=== PATIENT | male | born 1960 | race Caucasian/White ===

== ENCOUNTER 2020-09-21 15:31 | Outpatient (REF) | payer OTHER, SELFPAY ==
[2020-09-21 16:00] LABS: MANUAL DIFF FLAG NO
[2020-09-21 16:14] LABS: Glucose Urine UA 100 MG/DL (NEG); Leukocyte Esterase Urine NEG (NEG); Nitrite Urine NEG (NEG); Specific Gravity - Urine >= 1.030 (1.005-1.025); Urine Blood 1+ (NEG); Urine Ketones NEG (NEG); Urine Protein 2+ MG/DL (NEG-TRACE)
[2020-09-21 16:14] LABS: Basophils Percent Auto 0.3 % (0-2); Eosinophils Percent Auto 0.1 % (0-4); Hemoglobin 16.9 g/dl (14.0-18.0); Imm Gran Abs Auto 0.15 X10*3/uL (0.00-0.03); Imm Gran Pct Auto 1.5 % (0.0-0.4); Lymphocytes Absolute Auto 0.8 X10*3/uL (1.2-4.9); Lymphocytes Percent Auto 8.2 % (20-40); Mean Corpuscular HGB Conc 31.9 g/dl (31.0-36.0); Mean Corpuscular Hemoglobin 28.8 pg (27.0-33.0); Mean Corpuscular Volume 90.4 fL (80-98); Mean Platelet Volume 10.8 fL (9.4-12.4); Monocytes Absolute Auto 0.6 X10*3/uL (0.1-1.2); Monocytes Percent Auto 6.2 % (2-11); Neutrophils Absolute Auto 8.5 X10*3/uL (2.0-8.3); Neutrophils Percent Auto 83.7 % (45-73); Platelet Count 159 X10*3/uL (160-400); Red Blood Count 5.86 X10*6/uL (4.60-5.80); Red Cell Distribution Width 14.5 % (11.0-16.0); Retic HGB Equivalent 31.7 pg (30.0-35.0); Reticulocyte Percent 1.4 % (0.5-1.8); White Blood Count 10.2 X10*3/uL (4.8-10.8)
[2020-09-21 16:17] LABS: Appearance Urine CLEAR; Color Urine YELLOW
[2020-09-21 16:30] LABS: WBC Urine 0 /HPF (0-4)
[2020-09-21 17:02] LABS: Alanine Aminotransferase 15 U/L (0-40); Albumin Level 3.7 g/dL (3.5-5.0); Alkaline Phosphatase 91 U/L (39-117); Anion Gap 16 (12-20); Aspartate Amino Transferase 17 U/L (5-37); Bilirubin Total 0.4 mg/dL (0.0-1.0); Blood Urea Nitrogen 47 mg/dL (9-16); Calcium 9.4 mg/dL (8.4-10.2); Carbon Dioxide 21 mmol/L (22-29); Chloride 109 mmol/L (96-108); Cholesterol 168 mg/dL; Estimated Glomerular Filt Rate 39; Glucose Random 154 mg/dL (60-115); HDL Cholesterol 46 mg/dL; Iron 56 mcg/dL (45-160); LDL Cholesterol Calculated 107 mg/dl; Percent Iron Saturation 22 % (15-50); Potassium 5.4 mmol/l (3.3-5.1); Sodium 141 mmol/L (135-145); Total Iron Binding Capacity 255 mcg/dL (228-428); Total Protein 6.8 g/dL (6.5-8.0); Triglycerides 78 mg/dL; Unsaturated Iron Binding 199 ug/dL
[2020-09-21 17:11] LABS: Ferritin 545 ng/mL (20-250); Free T4 (Free Thyroxine) 0.94 ng/dL (0.71-1.85); Prostate Specific Antigen Scr 2.05 ng/mL (<0.05-4.0); Thyroid Stimulating Hormone 2.88 uIU/mL (0.32-4.0); Vitamin D 25-OH Total 22.6 ng/mL (>30)
[2020-09-21 17:22] LABS: Folate 6.5 ng/mL (> or = 4.0); Vitamin B12 508 pg/mL (200-900)
== END 2020-09-21 15:32 | disposition home or self-care (01) ==
LOC: HO.LAB 15:31
PROVIDERS: PCP Internal Medicine; Visit Provider Internal Medicine
DX: E11.65 Type 2 diabetes mellitus with hyperglycemia (principal); I10 Essential (primary) hypertension; I48.0 Paroxysmal atrial fibrillation; E78.00 Pure hypercholesterolemia, unspecified; Z12.5 Encounter for screening for malignant neoplasm of prostate; Z94.0 Kidney transplant status
CPT/HCPCS: 36415; 80053; 80061; 81001; 82043; 82306; 82607; 82728; 82746; 83540; 84153; 84439; 84443; 85025; 85045

== ENCOUNTER 2020-09-24 14:15 | Outpatient (REF) | payer OTHER, SELFPAY ==
[2020-09-24 14:43] LABS: PLT CLUMP 1; Red Cell Distribution Width 14.6 % (11.0-16.0)
[2020-09-24 14:45] LABS: Hematocrit 46.6 % (42-52); Hemoglobin 14.6 g/dl (14.0-18.0); Mean Corpuscular HGB Conc 31.3 g/dl (31.0-36.0); Mean Corpuscular Hemoglobin 28.7 pg (27.0-33.0); Mean Corpuscular Volume 91.6 fL (80-98); Mean Platelet Volume 10.8 fL (9.4-12.4); Platelet Count 125 X10*3/uL (160-400); Red Blood Count 5.09 X10*6/uL (4.60-5.80); White Blood Count 9.3 X10*3/uL (4.8-10.8)
[2020-09-24 14:52] LABS: Glucose Urine UA NEG (NEG); Leukocyte Esterase Urine NEG (NEG); Nitrite Urine NEG (NEG); Specific Gravity - Urine 1.015 (1.005-1.025); Urine Blood NEG (NEG); Urine Ketones NEG (NEG); Urine Protein 1+ MG/DL (NEG-TRACE)
[2020-09-24 14:54] LABS: Appearance Urine CLEAR; Color Urine STRAW
[2020-09-24 15:11] LABS: RBC Urine 0 /HPF (0); WBC Urine 0-2 /HPF (0-4)
[2020-09-24 15:12] LABS: Alanine Aminotransferase 14 U/L (0-40); Albumin Level 3.6 g/dL (3.5-5.0); Alkaline Phosphatase 86 U/L (39-117); Anion Gap 11 (12-20); Aspartate Amino Transferase 14 U/L (5-37); Bilirubin Direct 0.2 mg/dL (0.0-0.5); Bilirubin Total 0.5 mg/dL (0.0-1.0); Blood Urea Nitrogen 51 mg/dL (9-16); C Reactive Protein 0.37 mg/dL (< or = 0.50); Calcium 9.3 mg/dL (8.4-10.2); Carbon Dioxide 30 mmol/L (22-29); Chloride 107 mmol/L (96-108); Estimated Glomerular Filt Rate 41; Glucose Random 133 mg/dL (60-115); Potassium 4.8 mmol/l (3.3-5.1); Sodium 143 mmol/L (135-145); Total Protein 6.1 g/dL (6.5-8.0)
[2020-09-24 15:33] LABS: Creatinine Urine 24.68 mg/dL
== END 2020-09-24 14:16 | disposition home or self-care (01) ==
LOC: HO.LAB 14:15
PROVIDERS: Absent Provider Internal Medicine; PCP Internal Medicine; Visit Provider Internal Medicine
DX: E11.65 Type 2 diabetes mellitus with hyperglycemia (principal); M17.12 Unilateral primary osteoarthritis, left knee; Z94.0 Kidney transplant status
CPT/HCPCS: 36415; 80048; 80076; 81001; 85027; 86140

== ENCOUNTER → 2020-10-29 13:14 | Outpatient (BNVA) | payer OTHER, SELFPAY | PROVIDERS: PCP Internal Medicine; Visit Provider Internal Medicine | DX: I48.92 Unspecified atrial flutter (principal); I48.0 Paroxysmal atrial fibrillation; I10 Essential (primary) hypertension; F14.90 Cocaine use, unspecified, uncomplicated; Z98.890 Other specified postprocedural states | CPT/HCPCS: 93005; 99212 ==

== ENCOUNTER 2020-11-17 08:29 | Outpatient (REF) | payer OTHER, SELFPAY ==
[2020-11-17 09:35] LABS: Glucose Urine UA NEG (NEG); Leukocyte Esterase Urine NEG (NEG); Nitrite Urine NEG (NEG); Specific Gravity - Urine 1.025 (1.005-1.025); Urine Blood TRACE (NEG); Urine Ketones NEG (NEG); Urine Protein 2+ MG/DL (NEG-TRACE)
[2020-11-17 09:37] LABS: Appearance Urine CLEAR; Color Urine YELLOW
[2020-11-17 09:55] LABS: RBC Urine 0-2 /HPF (0); WBC Urine 0-2 /HPF (0-4)
[2020-11-17 09:58] LABS: Albumin Level 3.1 g/dL (3.5-5.0); Anion Gap 10 (12-20); Blood Urea Nitrogen 43 mg/dL (9-16); Calcium 9.1 mg/dL (8.4-10.2); Carbon Dioxide 28 mmol/L (22-29); Chloride 111 mmol/L (96-108); Estimated Glomerular Filt Rate 47; Magnesium 1.4 mg/dL (1.6-2.6); Potassium 4.8 mmol/L (3.3-5.1); Sodium 144 mmol/L (135-145)
[2020-11-17 10:13] LABS: Vitamin D 25-OH Total 15.1 ng/mL (>30)
[2020-11-17 10:17] LABS: Renal w Reflex Lab Use Only Order verified
[2020-11-17 10:19] LABS: Uric Acid 10.5 mg/dL (3.4-7.0)
[2020-11-17 10:26] LABS: Creatinine Urine 70.35 mg/dL
[2020-11-17 10:41] LABS: Protein/Creatinine Ratio, Ur 3.67 (<0.2); Total Protein Urine Random 258 mg/dL (<12)
[2020-11-18 15:46] LABS: Calcium (PTHI) 9.3 mg/dL (8.6-10.3); PTHI 273 pg/mL (14-64)
== END 2020-11-17 08:30 | disposition home or self-care (01) ==
LOC: HO.LAB 08:29
PROVIDERS: Absent Provider Internal Medicine Nephrology; PCP Internal Medicine; Visit Provider Internal Medicine
DX: N18.30 Chronic kidney disease, stage 3 unspecified (principal); N25.81 Secondary hyperparathyroidism of renal origin; Z94.0 Kidney transplant status
CPT/HCPCS: 36415; 80051; 81001; 82040; 82043; 82306; 82310; 82565; 83735; 83970; 84100; 84156; 84520; 84550

== ENCOUNTER 2020-12-08 16:06 | Inpatient (IN) | payer OTHER, SELFPAY ==
[2020-12-08] VITALS (8 sets, daily range): BP systolic 112–162; BP diastolic 65–114; PULSE 78–140; RESP 12–28; TEMP 36.7–36.8; O2SAT 92–98; BMI 29.5
--- NOTE | ~2020-12-08 | XR_ITS ---
EXAMINATION: XR CHEST CLINICAL INFORMATION: Shortness of breath COMPARISON: Prior chest radiographs, most recent 03/11/2020 TECHNIQUE: Portable AP view of the chest was obtained. FINDINGS: Cardiomediastinal silhouette is stable in size and morphology. There is a left-sided pacemaker with associated leads and wires. The leads and wires are contiguous. There are hazy opacities in the perihilar right mid to lower lung zone. Questionable small amount of perihilar opacity in the left mid to lower lung zone as well. No pleural effusion or pneumothorax is seen. There are metallic clips in the region of the left axilla. The structures of the chest wall are otherwise unremarkable. XR/XR chest 1V IMPRESSION: Right and possible left perihilar opacities may represent consolidation/pneumonia in the appropriate clinical setting. Follow-up to radiographic resolution is recommended.
--- NOTE | 2020-12-08 17:30 | ECG_ITS ---
Test Reason : SOB Blood Pressure : / mmHG Vent. Rate : 116 BPM Atrial Rate : 117 BPM P-R Int : 000 ms QRS Dur : 122 ms QT Int : 298 ms P-R-T Axes : 000 -69 136 degrees QTc Int : 414 ms Atrial fibrillation with rapid ventricular response Right bundle branch block Left anterior fascicular block Bifascicular block Abnormal ECG When compared with ECG of 18-JAN-2020 20:35, Atrial fibrillation has replaced Sinus rhythm Referred By: Generic ED Physician Electronically Signed By:South Jones
--- NOTE | 2020-12-08 20:25 | PC.NURSE ---
IV established, labs and urine obtained and sent. Awaiting primary MD nieves.
[2020-12-08 20:32] LABS: MANUAL DIFF FLAG NO
[2020-12-08 20:35] LABS: Glucose Urine UA NEG (NEG); Leukocyte Esterase Urine NEG (NEG); Nitrite Urine NEG (NEG); PH 5.5 (5.0-8.0); Specific Gravity - Urine >= 1.030 (1.005-1.025); Urine Blood TRACE (NEG); Urine Ketones NEG (NEG); Urine Protein 2+ MG/DL (NEG-TRACE)
[2020-12-08 20:36] LABS: Appearance Urine CLEAR; Color Urine YELLOW
[2020-12-08 20:40] LABS: Basophils Percent Auto 0.5 % (0-2); Eosinophils Percent Auto 0.3 % (0-4); Hematocrit 44.7 % (42-52); Hemoglobin 13.7 g/dl (14.0-18.0); Imm Gran Abs Auto 0.12 X10*3/uL (0.00-0.03); Imm Gran Pct Auto 1.9 % (0.0-0.4); Lymphocytes Percent Auto 15.8 % (20-40); Mean Corpuscular HGB Conc 30.6 g/dl (31.0-36.0); Mean Corpuscular Hemoglobin 29.1 pg (27.0-33.0); Mean Corpuscular Volume 95.1 fL (80-98); Mean Platelet Volume 11.2 fL (9.4-12.4); Monocytes Absolute Auto 0.8 X10*3/uL (0.1-1.2); Monocytes Percent Auto 12.7 % (2-11); Neutrophils Absolute Auto 4.4 X10*3/uL (2.0-8.3); Neutrophils Percent Auto 68.8 % (45-73); Platelet Count 164 X10*3/uL (160-400); White Blood Count 6.5 X10*3/uL (4.8-10.8)
[2020-12-08 20:42] LABS: Bacteria Urine 1+ /LPF; RBC Urine 0-2 /HPF (0); WBC Urine 0 /HPF (0-4)
[2020-12-08 20:48] LABS: Lactic Acid 1.1 mmol/L (0.5-2.0)
[2020-12-08 20:51] LABS: Anion Gap 16 (12-20); Blood Urea Nitrogen 50 mg/dL (9-16); Calcium 9.1 mg/dL (8.4-10.2); Carbon Dioxide 23 mmol/L (22-29); Chloride 107 mmol/L (96-108); Estimated Glomerular Filt Rate 27; Glucose Random 107 mg/dL (60-115); Potassium 4.4 mmol/L (3.3-5.1); Sodium 142 mmol/L (135-145)
[2020-12-08 21:03] LABS: Troponin-I High Sensitivity 83.7 ng/L (<3.5-35.0)
[2020-12-08 21:07] LABS: B Type Natriuretic Peptide 766 pg/mL (<100)
--- NOTE | 2020-12-08 21:18 | ED.SOB ---
HPI - SOB/Dyspnea General Chief Complaint: Dyspnea Stated Complaint: chest pain Time Seen by Provider: 12/08/20 21:18 Source: patient Mode of arrival: ambulatory Limitations: no limitations History of Present Illness HPI Narrative: Patient with history of atrial fibrillation flutter status post pacemaker for second-degree block with history of CHF comes here for increased shortness of breath for last few weeks with swelling of the legs since Liudmila time patient feel that she can take a deep breath was diagnosed with pneumonia about 2 weeks ago at [facility] finished his antibiotics , saturating 92% at room air patient denied any chest pain no fever no chills, occasional dry cough MD elicited complaint: shortness of breath Pertinent past history: congestive heart failure Onset (ago): week(s) Timing: constant Severity: moderate Exacerbating factors: lying flat and exertion Relieving factors: oxygen Known history of: congestive heart failure Treatment prior to arrival: none Related Data Home Medications Medication Instructions Recorded Confirmed aripiprazole 30 mg tablet 30 mg PO DAILY 08/13/20 12/08/20 omeprazole 20 mg capsule,delayed 20 mg PO DAILY@0630 08/13/20 12/08/20 release tacrolimus 1 mg capsule, 2 mg PO Q12H 08/13/20 12/08/20 immediate-release albuterol sulfate 90 mcg/actuation 2 puff INHALATION Q6H PRN 09/29/20 12/08/20 aerosol inhaler prednisone 10 mg tablet 10 mg PO DIRECTED 10/29/20 12/08/20 divalproex [Depakote ER] 1,000 mg PO BEDTIME 12/08/20 12/08/20 divalproex [Depakote ER] 500 mg PO DAILY 12/08/20 12/08/20 sod phos di, mono-K phos mono 1 tab PO DAILY 12/08/20 12/08/20 [Phospha 250 Neutral] Previous Rx's Medication Instructions Recorded diltiazem HCl 120 mg 120 mg PO DAILY #90 tab 06/16/20 tablet,extended release 24 hr acetaminophen 650 mg 650 mg PO Q12H PRN 15 Days #30 tab 09/29/20 tablet,extended release rivaroxaban 15 mg tablet 15 mg PO DAILY #90 tab 10/29/20 furosemide 20 mg tablet 20 mg PO DAILY #28 tab 11/02/20 Allergies Allergy/AdvReac Type Severity Reaction Status Date / Time diltiazem [From Cardizem] Allergy Unknown Dizziness Verified 11/05/20 12:06 indomethacin [Indocin] Allergy Unknown Unknown Verified 11/05/20 12:06 Review of Systems Review of Systems: Constitutional : No Weight loss, No Fever, No Chills ENT/Mouth : No sore throat, No Rhinorrhea Eyes: No Eye Pain, No Swelling Cardiovascular : No Chest Pain, no palpitations Respiratory : No Cough, No Sputum, ++ shortness of breath Gastrointestinal : no Nausea, No Vomiting, No Diarrhea, No abdominal Pain, no black stools Genitourinary : No Dysuria, No Urinary Frequency Musculoskeletal : No joint pain, No Myalgias, No Joint Swelling, leg edema++ Skin : No Skin Lesions, No rash Neuro : No Weakness, No Numbness, No Dizziness, No Headache Psych : No Anxiety/Panic, No Depression Heme/Lymph: No Bruising, No Lymphadenopathy Endocrine : No Polyuria, No Polydipsia All other systems reviewed and are negative [facility] Past Medical History Medical History Asthma Bipolar disorder Cellulitis of left foot Cellulitis of left lower extremity Cocaine use DVT (deep venous thrombosis) Essential hypertension Gout Hip osteoarthritis History of seizures Obesity Pacemaker PAF (paroxysmal atrial fibrillation) Polysubstance abuse Renal transplant recipient Second degree heart block Subdural hematoma Thrombocytopenia Tobacco abuse Unilateral primary osteoarthritis, left knee Urinary bladder cancer Surgical History Abscess of arm, left H/O cardiac radiofrequency ablation History of cardiac catheterization History of removal of cyst History of removal of cyst Kidney replaced by transplant Family History Family History Father Prostate cancer Mother No problems noted. Brother Cancer Social History Social History Alcohol intake: never Smoking Status: Current every day smoker Cigarettes Per Day: 1 Advance Directives: No Physical Exam Vital Signs: Vital Signs: Last Vital Signs Temp 98.0 F 12/08/20 20:00 Pulse 105 H 12/09/20 02:51 Resp 24 H 12/09/20 02:51 BP 140/93 H 12/09/20 00:40 Pulse Ox 98 12/09/20 02:51 Body Mass Index 29.5 Const: General: well developed and in distress mild Orientation/consciousness: patient oriented x3 HENMT: Head: Yes normocephalic and Yes atraumatic Eyes: General: appearance normal, both eyes and all related structures Neck: Neck: Yes normal visual inspection, Yes full ROM and Yes no JVD Chest: Chest palpation & inspection: normal inspection of the chest Resp: Effort & Inspection: normal respiratory effort Auscultation: crackles bilateral, rales bilateral, rhonchi and wheezes Cardio: Jugular venous distension: no JVD Palpation: normal PMI Rate: tachycardic Rhythm: abnormal rhythm irregularly irregular Heart sounds: S1 normal heart sound present and S2 normal heart sound present Peripheral pulses: Peripheral pulses 2+ throughout GI: Inspection: Yes normal to inspection Palpation (GI): Soft to palpation and nontender Auscultation: normal bowel sounds : General: Yes no CVA tenderness Back/Spine/Pelvis: Back: no CVA tenderness Thoracic/Lumbar Spine: thoracic and lumbar spine normal to inspection Skin: General skin exam: no rashes or lesions noted Neuro: General: patient oriented x3 and no focal motor deficits Extrem: General: Yes no calf tenderness and Yes pedal edema (3+) MDM - SOB/Dyspnea MDM Narrative Medical decision making narrative: Patient has significant coronary artery disease with CHF status post renal transplant with chronic renal failure comes with increased shortness of breath with elevated BUN creatinine and BNP chest x-ray showed congestion. Also patient is atrial fibrillation with fast ventricular rate which responded to IV Cardizem. Will admit patient for IV diuresis patient is saturating 98% at this time 2 L of oxygen via nasal cannula. Patient has elevated troponin without any significant delta change or EKG changes likely from atrial fibrillation and renal failure Differential Diagnosis Differential diagnosis: Likely congestive heart failure and pneumonia Medical Records Attestation: I reviewed the patient's medical records. Lab Data Attestation: I reviewed the patient's lab results. Result diagrams: 12/08/20 20:23 12/08/20 20:23 Labs: Lab Results 12/08/20 12/08/20 12/08/20 Range/Units 20:23 20:23 20:23 WBC 6.5 (4.8-10.8) X10*3/uL RBC 4.70 (4.60-5.80) X10*6/uL Hgb 13.7 L (14.0-18.0) g/dl Hct 44.7 (42-52) % MCV 95.1 (80-98) fL MCH 29.1 (27.0-33.0) pg MCHC 30.6 L (31.0-36.0) g/dl RDW 16.0 (11.0-16.0) % Plt Count 164 D (160-400) X10*3/uL MPV 11.2 (9.4-12.4) fL Immature Gran % (Auto) 1.9 H (0.0-0.4) % Neut % (Auto) 68.8 (45-73) % Lymph % (Auto) 15.8 L (20-40) % [place] % (Auto) 12.7 H (2-11) % Eos % (Auto) 0.3 (0-4) % Baso % (Auto) 0.5 (0-2) % Lymph # (Auto) 1.0 L (1.2-4.9) X10*3/uL [place] # (Auto) 0.8 (0.1-1.2) X10*3/uL Eos # (Auto) 0.0 (0.0-0.4) X10*3/uL Baso # (Auto) 0.0 (0.0-0.2) X10*3/uL Abs Immat Gran (auto) 0.12 H (0.00-0.03) X10*3/uL Absolute Neuts (auto) 4.4 (2.0-8.3) X10*3/uL Absolute Nucleated RBC 0.000 (0.0-0.012) X10*3/uL Nucleated RBC % (auto) 0.0 (0.0-0.2) /100WBC PT (10.8-13.0) SEC INR (0.9-1.1) APTT (24.1-38.0) SEC Hold Blue Top Sodium 142 (135-145) mmol/L Potassium 4.4 (3.3-5.1) mmol/L Chloride 107 (96-108) mmol/L Carbon Dioxide 23 (22-29) mmol/L Anion Gap 16 (12-20) BUN 50 H (9-16) mg/dL Creatinine 2.43 H (0.5-1.4) mg/dL Estim Creat Clear Calc 35.0 Estimated GFR 27 Random Glucose 107 (60-115) mg/dL Lactic Acid (0.5-2.0) mmol/L Calcium 9.1 (8.4-10.2) mg/dL Troponin I High Sens 83.7 H (<3.5-35.0) ng/L B-Natriuretic Peptide (<100) pg/mL Urine Color Urine Appearance Urine pH (5.0-8.0) Ur Specific [place] (1.005-1.025) Urine Protein (NEG-TRACE) MG/DL Urine Glucose (UA) (NEG) MG/DL Urine Ketones (NEG) MG/DL Urine Blood (NEG) Urine Nitrite (NEG) Ur Leukocyte Esterase (NEG) Urine RBC (0) /HPF Urine WBC (0-4) /HPF Ur Squamous Epith Cells /LPF Urine Bacteria /LPF 12/08/20 12/08/20 12/08/20 Range/Units 20:23 20:23 20:23 WBC (4.8-10.8) X10*3/uL RBC (4.60-5.80) X10*6/uL Hgb (14.0-18.0) g/dl Hct (42-52) % MCV (80-98) fL MCH (27.0-33.0) pg MCHC (31.0-36.0) g/dl RDW (11.0-16.0) % Plt Count (160-400) X10*3/uL MPV (9.4-12.4) fL Immature Gran % (Auto) (0.0-0.4) % Neut % (Auto) (45-73) % Lymph % (Auto) (20-40) % [place] % (Auto) (2-11) % Eos % (Auto) (0-4) % Baso % (Auto) (0-2) % Lymph # (Auto) (1.2-4.9) X10*3/uL [place] # (Auto) (0.1-1.2) X10*3/uL Eos # (Auto) (0.0-0.4) X10*3/uL Baso # (Auto) (0.0-0.2) X10*3/uL Abs Immat Gran (auto) (0.00-0.03) X10*3/uL Absolute Neuts (auto) (2.0-8.3) X10*3/uL Absolute Nucleated RBC (0.0-0.012) X10*3/uL Nucleated RBC % (auto) (0.0-0.2) /100WBC PT 13.1 H (10.8-13.0) SEC INR 1.1 (0.9-1.1) APTT 31.6 (24.1-38.0) SEC Hold Blue Top SEE NOTE Sodium (135-145) mmol/L Potassium (3.3-5.1) mmol/L Chloride (96-108) mmol/L Carbon Dioxide (22-29) mmol/L Anion Gap (12-20) BUN (9-16) mg/dL Creatinine (0.5-1.4) mg/dL Estim Creat Clear Calc Estimated GFR Random Glucose (60-115) mg/dL Lactic Acid 1.1 (0.5-2.0) mmol/L Calcium (8.4-10.2) mg/dL Troponin I High Sens (<3.5-35.0) ng/L B-Natriuretic Peptide 766 H (<100) pg/mL Urine Color Urine Appearance Urine pH (5.0-8.0) Ur Specific [place] (1.005-1.025) Urine Protein (NEG-TRACE) MG/DL Urine Glucose (UA) (NEG) MG/DL Urine Ketones (NEG) MG/DL Urine Blood (NEG) Urine Nitrite (NEG) Ur Leukocyte Esterase (NEG) Urine RBC (0) /HPF Urine WBC (0-4) /HPF Ur Squamous Epith Cells /LPF Urine Bacteria /LPF 12/08/20 12/09/20 Range/Units 20:23 00:33 WBC (4.8-10.8) X10*3/uL RBC (4.60-5.80) X10*6/uL Hgb (14.0-18.0) g/dl Hct (42-52) % MCV (80-98) fL MCH (27.0-33.0) pg MCHC (31.0-36.0) g/dl RDW (11.0-16.0) % Plt Count (160-400) X10*3/uL MPV (9.4-12.4) fL Immature Gran % (Auto) (0.0-0.4) % Neut % (Auto) (45-73) % Lymph % (Auto) (20-40) % [place] % (Auto) (2-11) % Eos % (Auto) (0-4) % Baso % (Auto) (0-2) % Lymph # (Auto) (1.2-4.9) X10*3/uL [place] # (Auto) (0.1-1.2) X10*3/uL Eos # (Auto) (0.0-0.4) X10*3/uL Baso # (Auto) (0.0-0.2) X10*3/uL Abs Immat Gran (auto) (0.00-0.03) X10*3/uL Absolute Neuts (auto) (2.0-8.3) X10*3/uL Absolute Nucleated RBC (0.0-0.012) X10*3/uL Nucleated RBC % (auto) (0.0-0.2) /100WBC PT (10.8-13.0) SEC INR (0.9-1.1) APTT (24.1-38.0) SEC Hold Blue Top Sodium (135-145) mmol/L Potassium (3.3-5.1) mmol/L Chloride (96-108) mmol/L Carbon Dioxide (22-29) mmol/L Anion Gap (12-20) BUN (9-16) mg/dL Creatinine (0.5-1.4) mg/dL Estim Creat Clear Calc Estimated GFR Random Glucose (60-115) mg/dL Lactic Acid (0.5-2.0) mmol/L Calcium (8.4-10.2) mg/dL Troponin I High Sens 71.9 H (<3.5-35.0) ng/L B-Natriuretic Peptide (<100) pg/mL Urine Color YELLOW Urine Appearance CLEAR Urine pH 5.5 (5.0-8.0) Ur Specific [place] >= 1.030 H (1.005-1.025) Urine Protein 2+ H (NEG-TRACE) MG/DL Urine Glucose (UA) NEG (NEG) MG/DL Urine Ketones NEG (NEG) MG/DL Urine Blood TRACE (NEG) Urine Nitrite NEG (NEG) Ur Leukocyte Esterase NEG (NEG) Urine RBC 0-2 (0) /HPF Urine WBC 0 (0-4) /HPF Ur Squamous Epith Cells NONE /LPF Urine Bacteria 1+ /LPF ECG Data Attestation: I personally reviewed and interpreted this ECG as follows: Interpretation: Atrial fibrillation with heart rate 116 beats per minute Sonia branch block nonspecific ST T wave changes no acute ischemia Discharge Plan Discharge Clinical Impression: Congestive heart failure Qualifiers: Heart failure type: combined systolic and diastolic Heart failure chronicity: acute on chronic Qualified Code(s): I50.43 - Acute on chronic combined systolic (congestive) and diastolic (congestive) heart failure Atrial fibrillation Qualifiers: Atrial fibrillation type: longstanding persistent Qualified Code(s): I48.11 - Longstanding persistent atrial fibrillation Renal failure, acute on chronic Qualifiers: Acute renal failure type: unspecified Chronic kidney disease stage: stage 3 (moderate) Chronic kidney disease stage 3 subtype: stage 3b (GFR 30-44) Qualified Code(s): N17.9 - Acute kidney failure, unspecified Patient Disposition: Admitted As Inpatient
--- NOTE | 2020-12-08 21:28 | PC.NURSE ---
at bedside for primary eval.
[2020-12-08] MEDS: Furosemide 40 MG/4 ML VIAL IVPUSH (21:41)
[2020-12-08] MEDS: Metoprolol Tartrate 5 MG/5 ML VIAL IVPUSH (21:41)
[2020-12-08 22:07] LABS: INTERNATIONAL NORM RATIO 1.1 (0.9-1.1); Prothrombin Time 13.1 SEC (10.8-13.0)
--- NOTE | 2020-12-08 22:09 | PC.NURSE ---
Hospitalist at bedside for eval.
[2020-12-08 22:10] LABS: Partial Thromboplastin Time 31.6 SEC (24.1-38.0)
[2020-12-09] VITALS (11 sets, daily range): BP systolic 113–158; BP diastolic 72–102; PULSE 93–140; RESP 18–26; TEMP 36.3–37; O2SAT 94–98
[2020-12-09] MEDS: dilTIAZem HCL 50 MG/10 ML VIAL 10 MG IVPUSH ×2 (00:34→09:57)
[2020-12-09] MEDS: Furosemide 20 MG/2 ML VIAL IVPUSH (00:34)
--- NOTE | 2020-12-09 01:05 | PM.IMHP ---
History of Present Illness Date of Service: 12/09/20 Chief Complaint: SOB 60-year-old male with a past medical history of hypertension, hyperlipidemia, CHF, history of heart block status post pacemaker, chronic kidney disease, history of renal transplant on tacrolimus and prednisone, history of AFib on Xarelto and diltiazem, osteoarthritis, recent admission to the [facility] for pneumonia finished antibiotic course presented to the hospital today with a chief complaint of shortness of breath. Mentioned that he has been having shortness of breath over the past few days which has been gradually worsening. Denies any chest pain lightheadedness or dizziness. Denies any fever chills cough. Denies using any home oxygen. Review of all other systems is negative except mentioned above ER course: Per ER team patient was noted to be saturating 92% on room air. Placed on supplemental oxygen. Noted trace pedal edema. EKG was nonischemic., given a dose of furosemide, diltiazem. On last patient noted to have elevated creatinine. Admitted for further management. [facility] Medical History Asthma Bipolar disorder Cellulitis of left foot Cellulitis of left lower extremity Cocaine use DVT (deep venous thrombosis) Essential hypertension Gout Heart failure with reduced ejection fraction Hip osteoarthritis History of seizures Obesity Pacemaker PAF (paroxysmal atrial fibrillation) Polysubstance abuse Renal transplant recipient Second degree heart block Subdural hematoma Thrombocytopenia Tobacco abuse Unilateral primary osteoarthritis, left knee Urinary bladder cancer Family History Father Prostate cancer Mother No problems noted. Brother Cancer Surgical History Abscess of arm, left H/O cardiac radiofrequency ablation History of cardiac catheterization History of removal of cyst History of removal of cyst Kidney replaced by transplant Social History Household Members: None Housing: Apartment Alcohol intake: never Smoking Status: Former smoker Cigarettes Per Day: 1 Substance Use Type: Crack/Cocaine service: No Current occupational status: retired Meds Allergies Allergy/AdvReac Type Severity Reaction Status Date / Time diltiazem [From Cardizem] Allergy Unknown Dizziness Verified 11/05/20 12:06 indomethacin [Indocin] Allergy Unknown Unknown Verified 11/05/20 12:06 Active Medications: Current Medications Generic Name Dose Route Start Last Admin Trade Name Freq PRN Reason Stop Dose Admin Acetaminophen 650 mg 12/09/20 01:01 Acetaminophen 325 Mg Tablet PO Q6H PRN Pain, Mild (Pain Scale 1-3) Albuterol/Ipratropium 3 ml 12/09/20 01:02 Albuterol/Iprat 2.5/0.5mg 3 Ml Ampul.Neb INHALE RQ4H PRN Shortness of Breath/Wheezing Aripiprazole 30 mg 12/09/20 09:00 Aripiprazole 30 Mg Tablet PO DAILY [facility] Diltiazem HCl 120 mg 12/09/20 09:00 Diltiazem Hcl Cd 120 Mg Cap.Er.Deg PO DAILY [facility] Protocol Divalproex Sodium 500 mg 12/09/20 09:00 Divalproex Sodium Er 500 Mg Tab.Er.24h PO DAILY [facility] Divalproex Sodium 1,000 mg 12/09/20 21:00 Divalproex Sodium Er 500 Mg Tab.Er.24h PO BEDTIME [facility] Non-Formulary Medication 1 tab 12/09/20 09:00 Sod Phos Di, Rooks-K Phos Rooks [Phospha 250 Neutral] PO DAILY [facility] Omeprazole 20 mg 12/09/20 06:30 Omeprazole 20 Mg Capsule. PO DAILY@629 [facility] Pharmacy Consult 1 each 12/08/20 21:28 Consult Rx Perform Med Rec MISCELLANE ONCE PRN Consult order Prednisone 10 mg 12/09/20 01:15 Prednisone 10 Mg Tablet PO DIRECTED [facility] Rivaroxaban 15 mg 12/09/20 09:00 Rivaroxaban 15 Mg Tablet PO DAILY [facility] Senna 17.2 mg 12/09/20 01:01 Sennosides 8.6 Mg Tablet PO BEDTIME PRN Constipation Sodium Chloride 3 ml 12/09/20 08:00 0.9 % Sodium Chloride Flush 3 Ml Syringe IVFLUSH QSHIFT [facility] Home Medications Medication Instructions Recorded Confirmed Last Taken Type aripiprazole 30 mg tablet 30 mg PO DAILY 08/13/20 12/08/20 Unknown History omeprazole 20 mg capsule,delayed 20 mg PO DAILY@0630 08/13/20 12/08/20 Unknown History release tacrolimus 1 mg capsule, 2 mg PO Q12H 08/13/20 12/08/20 Unknown History immediate-release albuterol sulfate 90 mcg/actuation 2 puff INHALATION Q6H PRN 09/29/20 12/08/20 Unknown History aerosol inhaler prednisone 10 mg tablet 10 mg PO DIRECTED 10/29/20 12/08/20 Unknown History Phospha 250 Neutral 1 tab PO DAILY 12/08/20 12/08/20 Unknown History divalproex [Depakote ER] 1,000 mg PO BEDTIME 12/08/20 12/08/20 Unknown History divalproex [Depakote ER] 500 mg PO DAILY 12/08/20 12/08/20 Unknown History Physical Exam Vital Signs and Narrative: Vital Signs: Last Vital Signs Temp 98.0 F 12/08/20 20:00 Pulse 110 H 12/09/20 00:40 Resp 24 H 12/09/20 00:40 BP 140/93 H 12/09/20 00:40 Pulse Ox 96 12/09/20 00:40 Body Mass Index 29.5 Gen: Appears be in no acute distress HEENT: NCAT, Moist mucosa. Pulmonary: Course breath sounds, fair air entry; crackles CVS: Normal S1-S2 Abdomen: BS+, Soft, Nontender Extremities: Warm well perfused; peripheral edema positive Neuro: Alert and awake. Grossly nonfocal Results Labs CBC and Chem 7: 12/13/20 09:15 12/17/20 09:18 Labs: Laboratory Results - last 24 hr 12/08/20 12/08/20 12/08/20 20:23 20:23 20:23 MCV 95.1 MCH 29.1 MCHC 30.6 L RDW 16.0 Plt Count 164 D MPV 11.2 Immature Gran % (Auto) 1.9 H Neut % (Auto) 68.8 Lymph % (Auto) 15.8 L [place] % (Auto) 12.7 H Eos % (Auto) 0.3 Baso % (Auto) 0.5 Lymph # (Auto) 1.0 L [place] # (Auto) 0.8 Eos # (Auto) 0.0 Baso # (Auto) 0.0 Abs Immat Gran (auto) 0.12 H Absolute Neuts (auto) 4.4 Absolute Nucleated RBC 0.000 Nucleated RBC % (auto) 0.0 PT INR APTT Hold Blue Top Anion Gap 16 Estim Creat Clear Calc 35.0 Estimated GFR 27 Random Glucose 107 Lactic Acid Calcium 9.1 Troponin I High Sens 83.7 H B-Natriuretic Peptide Urine Color Urine Appearance Urine pH Ur Specific [place] Urine Protein Urine Glucose (UA) Urine Ketones Urine Blood Urine Nitrite Ur Leukocyte Esterase Urine RBC Urine WBC Ur Squamous Epith Cells Urine Bacteria 12/08/20 12/08/20 12/08/20 20:23 20:23 20:23 MCV MCH MCHC RDW Plt Count MPV Immature Gran % (Auto) Neut % (Auto) Lymph % (Auto) [place] % (Auto) Eos % (Auto) Baso % (Auto) Lymph # (Auto) [place] # (Auto) Eos # (Auto) Baso # (Auto) Abs Immat Gran (auto) Absolute Neuts (auto) Absolute Nucleated RBC Nucleated RBC % (auto) PT 13.1 H INR 1.1 APTT 31.6 Hold Blue Top SEE NOTE Anion Gap Estim Creat Clear Calc Estimated GFR Random Glucose Lactic Acid 1.1 Calcium Troponin I High Sens B-Natriuretic Peptide 766 H Urine Color Urine Appearance Urine pH Ur Specific [place] Urine Protein Urine Glucose (UA) Urine Ketones Urine Blood Urine Nitrite Ur Leukocyte Esterase Urine RBC Urine WBC Ur Squamous Epith Cells Urine Bacteria 12/08/20 20:23 MCV MCH MCHC RDW Plt Count MPV Immature Gran % (Auto) Neut % (Auto) Lymph % (Auto) [place] % (Auto) Eos % (Auto) Baso % (Auto) Lymph # (Auto) [place] # (Auto) Eos # (Auto) Baso # (Auto) Abs Immat Gran (auto) Absolute Neuts (auto) Absolute Nucleated RBC Nucleated RBC % (auto) PT INR APTT Hold Blue Top Anion Gap Estim Creat Clear Calc Estimated GFR Random Glucose Lactic Acid Calcium Troponin I High Sens B-Natriuretic Peptide Urine Color YELLOW Urine Appearance CLEAR Urine pH 5.5 Ur Specific [place] >= 1.030 H Urine Protein 2+ H Urine Glucose (UA) NEG Urine Ketones NEG Urine Blood TRACE Urine Nitrite NEG Ur Leukocyte Esterase NEG Urine RBC 0-2 Urine WBC 0 Ur Squamous Epith Cells NONE Urine Bacteria 1+ Imaging Radiologist's Impressions: Impressions Chest X-Ray 12/08/20 20:07 IMPRESSION: Right and possible left perihilar opacities may represent consolidation/pneumonia in the appropriate clinical setting. Follow-up to radiographic resolution is recommended. Assessment and Plan (1) Congestive heart failure: Qualifiers: Heart failure chronicity: acute on chronic Heart failure type: combined systolic and diastolic Qualified Code(s): I50.43 - Acute on chronic combined systolic (congestive) and diastolic (congestive) heart failure Status: Acute 60-year-old male with a past medical history of hypertension, hyperlipidemia, CHF, AFib, history of heart block status post pacemaker, history of renal transplant, recent history of pneumonia presented to the hospital with a chief complaint of shortness of breath. Shortness of breath: Multifactorial. Patient was given Lasix-given concerns for CHF. CHF: Monitor I's and O's and daily weights. Echocardiogram. Judicious diuresis. Cardiology consult. Initial troponin slightly elevated-likely demand versus reduced clearance from renal insufficiency. Patient denies any chest pain. EKG nonischemic. Acute on chronic kidney injury: Patient baseline creatinine around 1.5. Will hold nephrotoxins. History of renal transplant: Patient on tacrolimus and prednisone at home. Will hold tacrolimus until further inputs from Nephrology in the morning. Sent tacrolimus levels. Recent history of pneumonia: Patient currently afebrile. Chest x-ray showed infiltrates-likely clearing from 2 weeks ago. Recommended repeat chest x-ray in 4 weeks. Follow the fever curve. History of AFib: Continue home diltiazem. Monitor on telemetry. Continue home Xarelto. Code status: Full code (2) Heart failure with reduced ejection fraction: Status: Acute
[2020-12-09 01:36] LABS: Troponin-I High Sensitivity 71.9 ng/L (<3.5-35.0)
--- NOTE | 2020-12-09 01:54 | PC.NURSE ---
This RN calling the lab was Covid swab does not show pending and is not resulted. Covid swab obtained and sent by this RN @ 2300. Lab to call back if unable to find specimen.
--- NOTE | 2020-12-09 02:00 | PC.NURSE ---
Covid swab recollected as lab is unable to locate specimen.
[2020-12-09 02:31] LABS: COVID-19 Test Negative (Negative)
--- NOTE | 2020-12-09 03:55 | PC.NURSE ---
Hospitalist consulted regarding HR 110-120 bpm but increases to 130-140 bpm with any type of movement. Pt to start PO Cardizem in the morning and has nothing PRN if he remains tachycardic. Plan for Cardizem q4h if HR > 120. Pt sleeping in bed, HR 108 bpm at this time. Continue to monitor.
[2020-12-09] MEDS: Omeprazole 20 MG CAPSULE.DR PO (05:57)
[2020-12-09 07:18] LABS: MANUAL DIFF FLAG NO
--- NOTE | 2020-12-09 07:30 | CA_ITS ---
Transthoracic Echocardiogram Patient (Last, First, Middle): Deshaun Adame J Gender: Male Date of : 1960 Age: 60 Procedure Date: 12/09/2020 Procedure Type: Transthoracic Echocardiogram Location: S3W Height: 175.26 cm Weight: 90.72 kg BSA: 2.07 m2 Heart Rate: bpm BP: 12 / 68 mmHg [employer] Pilot: Referring MD: Denny Marie MD Symptoms: chf Study Quality: Fair ECG Rhythm: Ventriculary paced rhythm Conclusions: - The left ventricular systolic function is severely decreased. - Normal right ventricular cavity size and systolic function. - The left atrium is severely dilated. - There is mild aortic valve stenosis. - Moderately elevated right atrial pressure. There is no evidence of pulmonary hypertension. Findings Procedure Information Contrast agent, definity, is being given per protocol without apparent complications. Left Ventricle Normal left ventricular cavity size. There is mildly increased left ventricular wall thickness. The left ventricular systolic function is severely decreased. The visually estimated ejection fraction is between 15 20%. There is severe global hypokinesis. Diastolic function is indeterminate on the basis of available data. Right Ventricle Normal right ventricular cavity size and systolic function. Atria The left atrium is severely dilated. Aortic Valve There is moderate calcification of the aortic valve. There is moderate thickening of the aortic valve. There is mild aortic valve stenosis. There is trace (trivial) aortic valve regurgitation. Mitral Valve There is severe mitral annular calcification. There is mild to moderate mitral valve regurgitation. There is no mitral valve stenosis. Pulmonic Valve Normal pulmonic valve structure and function. There is trace pulmonic valve regurgitation. Tricuspid Valve Normal tricuspid valve structure and function. There is trace tricuspid valve regurgitation. Moderately elevated right atrial pressure. There is no evidence of pulmonary hypertension. Great Vessels All visible segments of the aorta are normal in size. Venous The inferior vena cava is dilated and collapses less than 50% with inspiration. Pericardium/Pleural There is no evidence of pericardial effusion. Prior Study Comparison Significant changes compared to prior study dated: 10/23/2019. EF 15-20% now. Severely dilated left atrium. Measurements 2D Linear Measurements IVSd: 1.24 0.6-0.9/0.6-1.0 cm LVIDd: 5.82 3.9-5.3/4.2-5.9 cm LVIDd Index: 2.81 2.4-3.2/2.2-3.1 cm/m2 LVIDs: 5.35 2.0-3.6 cm LVPWd: 1.28 0.7-1.1 cm Ao Root: 3.00 2.1-3.5 cm LA Diam: 3.70 2.7-3.8/3.0-4.0 cm LAIDs Index: 1.79 1.5-2.3 cm/m2 LV Mass: 398.27 67-162/88-224 g LV Mass Index: 192.40 43-95/49-115 g/m2 LVOT Diam: 2.20 3.0+(-)1.3 cm 2D Systolic Function EF 4C: 30.30 >55% EF 2C: 7.69 >55% EF BiP: 18.60 >55% Mitral Valve MV VTI: 0.28 MV Pk Wood: 1.40 MV Mn Wood: 0.66 MV Pk Grad: 8.00 MV Mn Grad: 2.00 MV Pk E: 1.14 MV Decel Time: 116.00 E'Medial: 3.77 E/E' Med: 30.20 PHT: 34.00 MVA PHT: 6.47 MVA Continuity: 2.27 Decel Christian: 9.85 Aortic Valve AoV Pk Wood: 1.94 AoV Mn Wood: 1.29 AoV VTI: 0.31 AoV Pk Grad: 15.00 Aov Mn Grad: 8.00 CARLOS Cont.VTI: 2.07 LVOT LVOT Pk Wood: 1.00 LVOT Mn Wood: 0.70 LVOT VTI: 0.17 LVOT Pk Grad: 4.00 LVOT Mn Grad: 2.00 LVOT Diam: 2.20 LVOT Area: 3.80 Diastolic Function MV Pk E: 1.14 E'Medial: 3.77 E/E' Med: 30.20 Tricuspid Valve TR Pk Wood: 2.07 TR Pk Grad: 17.00 RA Press: 15.00 RVSP: 32.00 Great Vessels Aorta Ao Root-2D: 3.00 2.0-3.7 cm Ao Asc: 3.40 2.1-3.4 cm Updated in Other Vendor System with Status of Final [place] MD electronically signed on 12/10/2020 5:29:24 PM with status of Final
[2020-12-09 07:44] LABS: Basophils Percent Auto 0.4 % (0-2); Eosinophils Percent Auto 0.4 % (0-4); Hematocrit 39.5 % (42-52); Hemoglobin 12.5 g/dl (14.0-18.0); Imm Gran Abs Auto 0.11 X10*3/uL (0.00-0.03); Imm Gran Pct Auto 1.9 % (0.0-0.4); Lymphocytes Absolute Auto 0.7 X10*3/uL (1.2-4.9); Lymphocytes Percent Auto 12.6 % (20-40); Mean Corpuscular HGB Conc 31.6 g/dl (31.0-36.0); Mean Corpuscular Hemoglobin 29.7 pg (27.0-33.0); Mean Corpuscular Volume 93.8 fL (80-98); Mean Platelet Volume 11.4 fL (9.4-12.4); Monocytes Absolute Auto 0.8 X10*3/uL (0.1-1.2); Neutrophils Percent Auto 70.7 % (45-73); Platelet Count 154 X10*3/uL (160-400); Red Blood Count 4.21 X10*6/uL (4.60-5.80); Red Cell Distribution Width 15.9 % (11.0-16.0); White Blood Count 5.7 X10*3/uL (4.8-10.8)
[2020-12-09 07:53] LABS: Anion Gap 13 (12-20); Blood Urea Nitrogen 48 mg/dL (9-16); Calcium 8.4 mg/dL (8.4-10.2); Carbon Dioxide 26 mmol/L (22-29); Chloride 106 mmol/L (96-108); Creatinine Clr Calc Pharmacy 35.3; Estimated Glomerular Filt Rate 27; Glucose Random 125 mg/dL (60-115); Potassium 4.1 mmol/L (3.3-5.1); Sodium 141 mmol/L (135-145)
--- NOTE | 2020-12-09 08:14 | PC.NURSE ---
Report given to Julianne LUCERO
[2020-12-09] MEDS: 0.9 % Sodium Chloride Flush 3 ML SYRINGE IVFLUSH ×3 (09:57→20:14)
[2020-12-09] MEDS: predniSONE 10 MG TABLET PO (09:58)
[2020-12-09] MEDS: ARIPiprazole 30 MG TABLET PO (09:58)
[2020-12-09] MEDS: Rivaroxaban 15 MG TABLET PO (09:58)
[2020-12-09] MEDS: Divalproex Sodium ER 500 MG TAB.ER.24H PO (09:58)
[2020-12-09] MEDS: dilTIAZem HCL CD 120 MG CAP.ER.DEG PO (09:58)
[2020-12-09] MEDS: Sodium,Potassium Phosphates POWD.PACK 1 PACKET PO (09:59)
--- NOTE | 2020-12-09 10:41 | P.CDIC_ITS ---
CDI Concurrent Query Service Date: 12/11/20 Documentation Clarification: Please clarify if you are treating a proba ble/suspected/likely or confirmed: Acute respiratory failure, resolved, POA, txt, not txting Please specify if known Provider Response: Acute Respiratory Failure PLEASE DO NOT DELETE/MODIFY EXISTING CONTENT Additional information is needed in order to code to the highest accuracy and appropriate Severity of Illness (SOI). Please clarify the information noted below in your progress notes and discharge summary. Risk Factors/Clinical Indicators/Treatments ED: tachycardic, crackles, rales bilateral, rhonchi, wheezing, increased shortness of breath CHF patient placed on 2 liters oxygen w pulse ox 92% RR 28 HR 120 Chest xray showed congestion current smoker/obesity CDS: Katharine Lipscomb CCS, CDIS Contact Number: [phone] Please Review the information above and exercise your independent professional judgment in responding to the query. If you concur, pleas document in the PROGRESS NOTES and DISCHARGE SUMMARY. If you do not agree with the query, please document in the query above. THIS QUERY IS PART OF THE PERMANENT MEDICAL RECORD
--- NOTE | 2020-12-09 12:25 | P.CONNP_ITS ---
History of Present Illness Reason for Consult Consult date: 12/09/20 Chief Complaint Chief complaint: Sob History of Present Illness Narrative: 60-year-old male with a past medical history of hypertension, hyperlipidemia, CHF, history of heart block status post pacemaker, chronic kidney disease, history of renal transplant on tacrolimus and prednisone, history of AFib on Xarelto and diltiazem, osteoarthritis, recent admission to the [facility] for pneumonia finished antibiotic course presented to the hospital with shortness of breath which has been gradually worsening. Denies any chest pain lightheadedness , dizziness, fever chills cough. His serum creatinine is above baseline. Nephrology has been consulted to assist in his clinical care during his current hospital stay. Review of Systems Review of Systems Yes all other systems are reviewed and are negative PMFSH Past Medical History Medical History Asthma Bipolar disorder Cellulitis of left foot Cellulitis of left lower extremity Cocaine use DVT (deep venous thrombosis) Essential hypertension Gout Hip osteoarthritis History of seizures Obesity Pacemaker PAF (paroxysmal atrial fibrillation) Polysubstance abuse Renal transplant recipient Second degree heart block Subdural hematoma Thrombocytopenia Tobacco abuse Unilateral primary osteoarthritis, left knee Urinary bladder cancer Family History Family History Father Prostate cancer Mother No problems noted. Brother Cancer Surgical History Surgical History Abscess of arm, left H/O cardiac radiofrequency ablation History of cardiac catheterization History of removal of cyst History of removal of cyst Kidney replaced by transplant Social History Social History Alcohol intake: never Smoking Status: Current every day smoker Cigarettes Per Day: 1 Advance Directives: No Meds Allergies Allergy/AdvReac Type Severity Reaction Status Date / Time diltiazem [From Cardizem] Allergy Unknown Dizziness Verified 11/05/20 12:06 indomethacin [Indocin] Allergy Unknown Unknown Verified 11/05/20 12:06 Active Medications: Current Medications Generic Name Dose Route Start Last Admin Trade Name Freq PRN Reason Stop Dose Admin Acetaminophen 650 mg 12/09/20 01:01 Acetaminophen 325 Mg Tablet PO Q6H PRN Pain, Mild (Pain Scale 1-3) Albuterol/Ipratropium 3 ml 12/09/20 01:02 Albuterol/Iprat 2.5/0.5mg 3 Ml Ampul.Neb INHALE RQ4H PRN Shortness of Breath/Wheezing Aripiprazole 30 mg 12/09/20 09:00 12/09/20 09:58 Aripiprazole 30 Mg Tablet PO 30 mg DAILY YOLANDA Administration Diltiazem HCl 120 mg 12/09/20 09:00 12/09/20 09:58 Diltiazem Hcl Cd 120 Mg Cap.Er.Deg PO 120 mg DAILY YOLANDA Administration Protocol Diltiazem HCl 10 mg 12/09/20 03:48 12/09/20 09:57 Diltiazem Hcl 50 Mg/10 Ml Vial IVPUSH 10 mg Q4H PRN Administration HR>120 Divalproex Sodium 500 mg 12/09/20 09:00 12/09/20 09:58 Divalproex Sodium Er 500 Mg Tab.Er.24h PO 500 mg DAILY YOLANDA Administration Divalproex Sodium 1,000 mg 12/09/20 21:00 Divalproex Sodium Er 500 Mg Tab.Er.24h PO BEDTIME YOLANDA Omeprazole 20 mg 12/09/20 06:30 12/09/20 05:57 Omeprazole 20 Mg Capsule. PO 20 mg DAILY@0630 [facility] Administration Pharmacy Consult 1 each 12/08/20 21:28 Consult Rx Perform Med Rec MISCELLANE ONCE PRN Consult order Potassium Phos/Sodium Phos 1 packet 12/09/20 09:00 12/09/20 09:59 Sodium,Potassium Phosphates Powd.Pack PO 1 packet DAILY YOLANDA Administration Prednisone 10 mg 12/09/20 09:00 12/09/20 09:58 Prednisone 10 Mg Tablet PO 12/10/20 09:01 10 mg DAILY YOLANDA Administration Rivaroxaban 15 mg 12/09/20 09:00 12/09/20 09:58 Rivaroxaban 15 Mg Tablet PO 15 mg DAILY [facility] Administration Senna 17.2 mg 12/09/20 01:01 Sennosides 8.6 Mg Tablet PO BEDTIME PRN Constipation Sodium Chloride 3 ml 12/09/20 08:00 12/09/20 09:57 0.9 % Sodium Chloride Flush 3 Ml Syringe IVFLUSH 3 ml QSHIFT [facility] Administration Home Medications Medication Instructions Recorded Confirmed Last Taken Type aripiprazole 30 mg tablet 30 mg PO DAILY 08/13/20 12/08/20 Unknown History omeprazole 20 mg capsule,delayed 20 mg PO DAILY@0630 08/13/20 12/08/20 Unknown History release tacrolimus 1 mg capsule, 2 mg PO Q12H 08/13/20 12/08/20 Unknown History immediate-release albuterol sulfate 90 mcg/actuation 2 puff INHALATION Q6H PRN 09/29/20 12/08/20 Unknown History aerosol inhaler prednisone 10 mg tablet 10 mg PO DIRECTED 10/29/20 12/08/20 Unknown History divalproex [Depakote ER] 1,000 mg PO BEDTIME 12/08/20 12/08/20 Unknown History divalproex [Depakote ER] 500 mg PO DAILY 12/08/20 12/08/20 Unknown History sod phos di, mono-K phos mono 1 tab PO DAILY 12/08/20 12/08/20 Unknown History [Phospha 250 Neutral] Physical Exam Vital Signs: Last Vital Signs Temp 97.6 F 12/09/20 08:00 Pulse 140 H 12/09/20 09:57 Resp 18 12/09/20 08:00 BP 158/95 H 12/09/20 09:57 Pulse Ox 96 12/09/20 08:00 Body Mass Index 29.5 Const General: No no acute distress Neck Neck: Yes supple Resp Auscultation: diminished lung sounds Cardio Rate: regular rate GI Palpation (GI): Soft to palpation Neuro General: moves all extremities Results Lab Results Result Diagrams: 12/09/20 07:08 12/09/20 07:08 Lab results: Chemistry 12/08/20 12/09/20 20:23 07:08 Sodium 142 141 Potassium 4.4 4.1 Carbon Dioxide 23 26 BUN 50 H 48 H Creatinine 2.43 H 2.41 H Calcium 9.1 8.4 D Hematology 12/08/20 12/09/20 20:23 07:08 WBC 6.5 5.7 Hgb 13.7 L 12.5 L Plt Count 164 D 154 L Urinalysis 12/08/20 20:23 Urine Color YELLOW Urine Appearance CLEAR Urine pH 5.5 Ur Specific [place] >= 1.030 H Urine Protein 2+ H Urine Glucose (UA) NEG Urine Ketones NEG Urine Blood TRACE Urine Nitrite NEG Ur Leukocyte Esterase NEG Urine RBC 0-2 Urine WBC 0 Ur Squamous Epith Cells NONE Assessment and Plan (1) Renal transplant disorder: Problem details: ANA due to tubular dysfunction C3/C4 ordered; Has transplant glomerulopathy with proteinuria Needs diuresis; Ordered urine cocaine Shall continue home dose of tacrolimus BP needs to be kept at goal; Low sodium diet Shall closely follow up Status: Acute
--- NOTE | 2020-12-09 14:04 | MHC.CM.PN ---
pt lives in [facility] [place] alone. he reports he has no family in the area. he reports he is pretty independent , using a cane c ambulation d/t his gout. he is connected c the [facility] outreach program, he has two outreach coordinators - rafael and reji, their contact info is in the emr. i attempted to call them for more detail on patient, however , they were unavailable. he also has a daily vna nsg visit for which he cannot remember the name of the agency - they administer his daily meds. pt will need help c a ride home at nv. nv plan is home c [facility] outreach program support and vna svcs to resume. cm to cont. to follow.
--- NOTE | 2020-12-09 16:46 | P.CONCA_ITS ---
History of Present Illness History of Present Illness Date of Service: 12/09/20 Requesting physician: Denny Marie Chief complaint: Sob Narrative: 60 in gentleman who is known to Dr. Pope in our office. He has background history of asthma, bipolar disorder, cocaine use, DVT, hypertension, seizures, paroxysmal atrial fibrillation and atrial flutter, renal transplant and secondary heart block for which she underwent permanent pacemaker placement in the past. He was last seen in October 2020 for follow-up in office. He was recently admitted at [facility] for pneumonia and completed antibiotics course. Subsequent to that he was becoming more and more short of breath and developed lower extremity edema. With these symptoms he presented was. When noticed to be mildly hypoxic and was admitted for further care. He was given IV diuretics. He said he has been experiencing some orthopnea at home. [facility] Past Medical History Medical History Asthma Bipolar disorder Cellulitis of left foot Cellulitis of left lower extremity Cocaine use DVT (deep venous thrombosis) Essential hypertension Gout Hip osteoarthritis History of seizures Obesity Pacemaker PAF (paroxysmal atrial fibrillation) Polysubstance abuse Renal transplant recipient Second degree heart block Subdural hematoma Thrombocytopenia Tobacco abuse Unilateral primary osteoarthritis, left knee Urinary bladder cancer Family History Family History Father Prostate cancer Mother No problems noted. Brother Cancer Surgical History Surgical History Abscess of arm, left H/O cardiac radiofrequency ablation History of cardiac catheterization History of removal of cyst History of removal of cyst Kidney replaced by transplant Social History Social History Household Members: None Housing: Apartment Do you presently have visiting nurse or other home services: Yes Alcohol intake: never Smoking Status: Former smoker Cigarettes Per Day: 1 Smoked in Last 30 Days: Yes Smoking Quit Date: 11/25/20 Use of substances other than those prescribed or required for medical reasons: Yes Substance Use Type: Crack/Cocaine Substance Use Frequency: Occasionally Last Used Substance: Weeks (ago) Last Used Substance Other:: crack last monday Currently Displaying Signs/Symptoms of Drug Intoxication Withdrawal: No Any prior treatment program specific to substance use: Yes Have you been hit, kicked, punched, or otherwise hurt by someone within the past year? If so, by whom?: No Do you feel safe in your current relationship?: No Current Relationship Is there a partner from a previous relationship who is making you feel unsafe now?: No Are you made to feel afraid or neglected: No Advance Directives: No Do you have thoughts of harming others: None Do you have a plan to hurt others: No Plan Recently lost weight without trying: No service: No Current occupational status: retired Meds Allergies Allergy/AdvReac Type Severity Reaction Status Date / Time diltiazem [From Cardizem] Allergy Unknown Dizziness Verified 11/05/20 12:06 indomethacin [Indocin] Allergy Unknown Unknown Verified 11/05/20 12:06 Active Medications: Current Medications Generic Name Dose Route Start Last Admin Trade Name Freq PRN Reason Stop Dose Admin Acetaminophen 650 mg 12/09/20 01:01 Acetaminophen 325 Mg Tablet PO Q6H PRN Pain, Mild (Pain Scale 1-3) Albuterol/Ipratropium 3 ml 12/09/20 01:02 Albuterol/Iprat 2.5/0.5mg 3 Ml Ampul.Neb INHALE RQ4H PRN Shortness of Breath/Wheezing Aripiprazole 30 mg 12/09/20 09:00 12/09/20 09:58 Aripiprazole 30 Mg Tablet PO 30 mg DAILY YOLANDA Administration Diltiazem HCl 120 mg 12/09/20 09:00 12/09/20 09:58 Diltiazem Hcl Cd 120 Mg Cap.Er.Deg PO 120 mg DAILY YOLANDA Administration Protocol Diltiazem HCl 10 mg 12/09/20 03:48 12/09/20 09:57 Diltiazem Hcl 50 Mg/10 Ml Vial IVPUSH 10 mg Q4H PRN Administration HR>120 Divalproex Sodium 500 mg 12/09/20 09:00 12/09/20 09:58 Divalproex Sodium Er 500 Mg Tab.Er.24h PO 500 mg DAILY YOLANDA Administration Divalproex Sodium 1,000 mg 12/09/20 21:00 Divalproex Sodium Er 500 Mg Tab.Er.24h PO BEDTIME YOLANDA Omeprazole 20 mg 12/09/20 06:30 12/09/20 05:57 Omeprazole 20 Mg Capsule.Dr PO 20 mg DAILY@30 [facility] Administration Pharmacy Consult 1 each 12/08/20 21:28 Consult Rx Perform Med Rec MISCELLANE ONCE PRN Consult order Potassium Phos/Sodium Phos 1 packet 12/09/20 09:00 12/09/20 09:59 Sodium,Potassium Phosphates Powd.Pack PO 1 packet DAILY YOLANDA Administration Prednisone 10 mg 12/09/20 09:00 12/09/20 09:58 Prednisone 10 Mg Tablet PO 12/10/20 09:01 10 mg DAILY YOLANDA Administration Rivaroxaban 15 mg 12/09/20 09:00 12/09/20 09:58 Rivaroxaban 15 Mg Tablet PO 15 mg DAILY YOLANDA Administration Senna 17.2 mg 12/09/20 01:01 Sennosides 8.6 Mg Tablet PO BEDTIME PRN Constipation Sodium Chloride 3 ml 12/09/20 08:00 12/09/20 15:46 0.9 % Sodium Chloride Flush 3 Ml Syringe IVFLUSH 3 ml QSHIFT [facility] Administration Home Medications Medication Instructions Recorded Confirmed Last Taken Type aripiprazole 30 mg tablet 30 mg PO DAILY 08/13/20 12/08/20 Unknown History omeprazole 20 mg capsule,delayed 20 mg PO DAILY@0630 08/13/20 12/08/20 Unknown History release tacrolimus 1 mg capsule, 2 mg PO Q12H 08/13/20 12/08/20 Unknown History immediate-release albuterol sulfate 90 mcg/actuation 2 puff INHALATION Q6H PRN 09/29/20 12/08/20 Unknown History aerosol inhaler prednisone 10 mg tablet 10 mg PO DIRECTED 10/29/20 12/08/20 Unknown History divalproex [Depakote ER] 1,000 mg PO BEDTIME 12/08/20 12/08/20 Unknown History divalproex [Depakote ER] 500 mg PO DAILY 12/08/20 12/08/20 Unknown History sod phos di, mono-K phos mono 1 tab PO DAILY 12/08/20 12/08/20 Unknown History [Phospha 250 Neutral] Physical Exam Vital Signs: Vital Signs: Last Vital Signs Temp 97.6 F 12/09/20 15:23 Pulse 103 H 12/09/20 15:23 Resp 18 12/09/20 15:23 BP 132/89 12/09/20 15:23 Pulse Ox 94 12/09/20 15:23 Body Mass Index 29.5 GENERAL APPEARANCE: in no acute distress, well developed, well nourished. HEENT: unremarkable. HEAD: normocephalic, atraumatic. NECK/THYROID: no carotid bruit, + jugular venous distention. SKIN: no suspicious lesions, warm and dry. HEART: no murmurs, regular rate and rhythm, S1, S2 normal. LUNGS: clear to auscultation bilaterally. ABDOMEN: normal, bowel sounds present, soft, nontender, nondistended. EXTREMITIES: no clubbing, cyanosis. 2+ edema lower extremities PERIPHERAL PULSES: equal. NEUROLOGIC: nonfocal, alert and oriented. PSYCH: mood/affect full range. Results Labs and Meds Result diagrams: 12/09/20 07:08 12/09/20 07:08 Lab results: Laboratory Results - last 24 hr 12/08/20 12/08/20 12/08/20 20:23 20:23 20:23 WBC 6.5 RBC 4.70 Hgb 13.7 L Hct 44.7 MCV 95.1 MCH 29.1 MCHC 30.6 L RDW 16.0 Plt Count 164 D MPV 11.2 Immature Gran % (Auto) 1.9 H Neut % (Auto) 68.8 Lymph % (Auto) 15.8 L [place] % (Auto) 12.7 H Eos % (Auto) 0.3 Baso % (Auto) 0.5 Lymph # (Auto) 1.0 L [place] # (Auto) 0.8 Eos # (Auto) 0.0 Baso # (Auto) 0.0 Abs Immat Gran (auto) 0.12 H Absolute Neuts (auto) 4.4 Absolute Nucleated RBC 0.000 Nucleated RBC % (auto) 0.0 PT INR APTT Hold Blue Top Sodium 142 Potassium 4.4 Chloride 107 Carbon Dioxide 23 Anion Gap 16 BUN 50 H Creatinine 2.43 H Estim Creat Clear Calc 35.0 Estimated GFR 27 Random Glucose 107 Lactic Acid Calcium 9.1 Troponin I High Sens 83.7 H B-Natriuretic Peptide Urine Color Urine Appearance Urine pH Ur Specific [place] Urine Protein Urine Glucose (UA) Urine Ketones Urine Blood Urine Nitrite Ur Leukocyte Esterase Urine RBC Urine WBC Ur Squamous Epith Cells Urine Bacteria COVID-19 (KARISSA) COVID-19 Clin Com 12/08/20 12/08/20 12/08/20 20:23 20:23 20:23 WBC RBC Hgb Hct MCV MCH MCHC RDW Plt Count MPV Immature Gran % (Auto) Neut % (Auto) Lymph % (Auto) [place] % (Auto) Eos % (Auto) Baso % (Auto) Lymph # (Auto) [place] # (Auto) Eos # (Auto) Baso # (Auto) Abs Immat Gran (auto) Absolute Neuts (auto) Absolute Nucleated RBC Nucleated RBC % (auto) PT 13.1 H INR 1.1 APTT 31.6 Hold Blue Top SEE NOTE Sodium Potassium Chloride Carbon Dioxide Anion Gap BUN Creatinine Estim Creat Clear Calc Estimated GFR Random Glucose Lactic Acid 1.1 Calcium Troponin I High Sens B-Natriuretic Peptide 766 H Urine Color Urine Appearance Urine pH Ur Specific [place] Urine Protein Urine Glucose (UA) Urine Ketones Urine Blood Urine Nitrite Ur Leukocyte Esterase Urine RBC Urine WBC Ur Squamous Epith Cells Urine Bacteria COVID-19 (KARISSA) [employer] Com 12/08/20 12/09/20 12/09/20 20:23 00:33 02:00 WBC RBC Hgb Hct MCV MCH MCHC RDW Plt Count MPV Immature Gran % (Auto) Neut % (Auto) Lymph % (Auto) [place] % (Auto) Eos % (Auto) Baso % (Auto) Lymph # (Auto) [place] # (Auto) Eos # (Auto) Baso # (Auto) Abs Immat Gran (auto) Absolute Neuts (auto) Absolute Nucleated RBC Nucleated RBC % (auto) PT INR APTT Hold Blue Top Sodium Potassium Chloride Carbon Dioxide Anion Gap BUN Creatinine Estim Creat Clear Calc Estimated GFR Random Glucose Lactic Acid Calcium Troponin I High Sens 71.9 H B-Natriuretic Peptide Urine Color YELLOW Urine Appearance CLEAR Urine pH 5.5 Ur Specific [place] >= 1.030 H Urine Protein 2+ H Urine Glucose (UA) NEG Urine Ketones NEG Urine Blood TRACE Urine Nitrite NEG Ur Leukocyte Esterase NEG Urine RBC 0-2 Urine WBC 0 Ur Squamous Epith Cells NONE Urine Bacteria 1+ COVID-19 (KARISSA) Negative COVID-[employer] Com See Note 12/09/20 12/09/20 07:08 07:08 WBC 5.7 RBC 4.21 L Hgb 12.5 L Hct 39.5 L MCV 93.8 MCH 29.7 MCHC 31.6 RDW 15.9 Plt Count 154 L MPV 11.4 Immature Gran % (Auto) 1.9 H Neut % (Auto) 70.7 Lymph % (Auto) 12.6 L [place] % (Auto) 14.0 H Eos % (Auto) 0.4 Baso % (Auto) 0.4 Lymph # (Auto) 0.7 L [place] # (Auto) 0.8 Eos # (Auto) 0.0 Baso # (Auto) 0.0 Abs Immat Gran (auto) 0.11 H Absolute Neuts (auto) 4.0 Absolute Nucleated RBC 0.000 Nucleated RBC % (auto) 0.0 PT INR APTT Hold Blue Top Sodium 141 Potassium 4.1 Chloride 106 Carbon Dioxide 26 Anion Gap 13 BUN 48 H Creatinine 2.41 H Estim Creat Clear Calc 35.3 Estimated GFR 27 Random Glucose 125 H Lactic Acid Calcium 8.4 D Troponin I High Sens B-Natriuretic Peptide Urine Color Urine Appearance Urine pH Ur Specific [place] Urine Protein Urine Glucose (UA) Urine Ketones Urine Blood Urine Nitrite Ur Leukocyte Esterase Urine RBC Urine WBC Ur Squamous Epith Cells Urine Bacteria COVID-19 (KARISSA) COVID-19 Clin Com Imaging Radiologist's impression: Impressions Chest X-Ray 12/08/20 20:07 IMPRESSION: Right and possible left perihilar opacities may represent consolidation/pneumonia in the appropriate clinical setting. Follow-up to radiographic resolution is recommended. Assessment and Plan (1) Congestive heart failure: Qualifiers: Heart failure chronicity: acute on chronic Heart failure type: combined systolic and diastolic Qualified Code(s): I50.43 - Acute on chronic combined systolic (congestive) and diastolic (congestive) heart failure Status: Acute Pleasant 58-year-old gentleman who is not was for atrial fibrillation and congestive heart failure. He is admitted with heart failure in the setting of recent pneumonia at [facility]. He has significant volume monitored. Agree with IV diuretics at this point. Blood pressure control is reasonable right now. He is on Xarelto for anticoagulation which should be continued. We will follow along with you. Thank you for allowing me to participate in the care of your patient. Please feel free to contact me if you have any questions.
[2020-12-09 17:17] LABS: Cocaine Screen Urine POSITIVE (Not Detect)
[2020-12-09 17:20] LABS: Total Protein Urine Random 121 mg/dL (<12)
[2020-12-09] MEDS: Divalproex Sodium ER 500 MG TAB.ER.24H 1000 MG PO (20:12)
[2020-12-10 04:00] VITALS: BP 136/92; PULSE 99; RESP 20; TEMP 36.3; O2SAT 96
[2020-12-10] MEDS: Omeprazole 20 MG CAPSULE.DR PO (05:58)
[2020-12-10 07:01] LABS: Tacrolimus Prograf 4.9 mcg/L
[2020-12-10 08:00] VITALS: BP 147/99; PULSE 102; RESP 17; TEMP 36.4; O2SAT 96
[2020-12-10] MEDS: ARIPiprazole 30 MG TABLET PO (09:39)
[2020-12-10] MEDS: Divalproex Sodium ER 500 MG TAB.ER.24H PO (09:40)
[2020-12-10] MEDS: predniSONE 10 MG TABLET PO (09:40)
[2020-12-10 09:42] VITALS: BP 147/99; PULSE 96
[2020-12-10] MEDS: dilTIAZem HCL CD 120 MG CAP.ER.DEG PO (09:42)
[2020-12-10] MEDS: 0.9 % Sodium Chloride Flush 3 ML SYRINGE IVFLUSH ×2 (09:42→15:43)
[2020-12-10] MEDS: Furosemide 40 MG/4 ML VIAL IVPUSH ×2 (09:42→20:09)
[2020-12-10] MEDS: Sodium,Potassium Phosphates POWD.PACK 1 PACKET PO (09:43)
[2020-12-10] MEDS: Rivaroxaban 15 MG TABLET PO (09:43)
--- NOTE | 2020-12-10 09:46 | PM.PNCARD ---
Subjective Subjective Date of Service: 12/10/20 Principal diagnosis: CHF, AF Interval history: Cardiology follow up for the above. Seen at 0845. Today he reports his breathing is feeling better. Slept well. No cough, sob at rest, chest pains. He does feel intermittent heart palpitations at times. He feels leg edema is less that yesterday. Review of Systems Review of Systems as above Yes all other systems are reviewed and are negative Physical Exam Vital Signs: Last Vital Signs Temp 97.6 F 12/10/20 08:00 Pulse 102 H 12/10/20 08:00 Resp 17 12/10/20 08:00 BP 147/99 H 12/10/20 08:00 Pulse Ox 96 12/10/20 08:00 Body Mass Index 29.5 Const General: cooperative, no acute distress, alert and awake Orientation/consciousness: patient oriented x3 HENMT Head: Yes normal to inspection Resp Other: Lungs with some coarse rales left base and less right base, no cough, wearing O2 2liters Effort & Inspection: normal respiratory effort, able to speak in complete sentences and not labored Auscultation: clear to auscultation bilaterally, no rhonchi and no wheezes Cardio Jugular venous distension: JVD present Palpation: normal PMI Rate: regular rate Rhythm: abnormal rhythm (Irregularly irregular) Heart sounds: S1 normal heart sound present and S2 normal heart sound present GI Inspection: Yes normal to inspection Skin General skin exam: no rashes or lesions noted Neuro General: patient oriented x3 Extrem Other: soft 2-3+ edema in lower legs/ feet Results Labs and Meds Result diagrams: 12/09/20 07:08 12/09/20 07:08 Lab results: Laboratory Results - last 24 hr 12/09/20 12/09/20 12/09/20 07:08 16:45 16:45 U Random Total Protein 121 H Urine Cocaine Screen POSITIVE H Tacrolimus 4.9 L Progress Note: A&P Assessment and plan (1) Congestive heart failure: Status: Acute Assessment and Plan: Admit with sob, edema. Recent [facility] admit with PNA. Evidence of fluid overload on exam. Last echo shows EF 50-55%, impaired filling. Acute on chronic diastolic HF. Being diuresed with IV Lasix with neg fluid balance of 1200 cc since admit. He reports breathing and edema improving. Still has JVD and significant pitting edema in lower legs. Sat 96% on 2L nasal cannula. Continue to diurese with IV Lasix. Strict I+O monitoring. Close monitoring of electrolyte and kidney function with electrolyte replacement as warranted. We will follow (2) Atrial fibrillation: Status: Acute Assessment and Plan: Isatu of PAF. Remote outpt monitoring recently shows elevated afib rates. Has had recent illness with PNA and now CHF. Continues on his usual Diltiazem. Tele shows rates average 100 with peak of 140s this admit. Ongoing tele monitoring. Continue Xarelto at renal dose. No reports of bleeding issues. (3) Renal failure, acute on chronic: Status: Acute Assessment and Plan: Cr 2.43 on admit which is high for him. Diuresing and starting to show improvement. labs pending this am. Follows with nephrology (4) Cocaine use: Status: Acute Assessment and Plan: + screen for cocaine this admit. (5) Pacemaker: Problem details: (10/2019 - due to mobitz2 heart block) Status: Acute Assessment and Plan: Followed by our outpt office Fall Risk Details Current Medications: Current Medications Generic Name Dose Route Start Last Admin Trade Name Freq PRN Reason Stop Dose Admin Acetaminophen 650 mg 12/09/20 01:01 Acetaminophen 325 Mg Tablet PO Q6H PRN Pain, Mild (Pain Scale 1-3) Albuterol/Ipratropium 3 ml 12/09/20 01:02 Albuterol/Iprat 2.5/0.5mg 3 Ml Ampul.Neb INHALE RQ4H PRN Shortness of Breath/Wheezing Aripiprazole 30 mg 12/09/20 09:00 12/10/20 09:39 Aripiprazole 30 Mg Tablet PO 30 mg DAILY YOLANDA Administration Diltiazem HCl 120 mg 12/09/20 09:00 12/09/20 09:58 Diltiazem Hcl Cd 120 Mg Cap.Er.Deg PO 120 mg DAILY YOLANDA Administration Protocol Diltiazem HCl 10 mg 12/09/20 03:48 12/09/20 09:57 Diltiazem Hcl 50 Mg/10 Ml Vial IVPUSH 10 mg Q4H PRN Administration HR>120 Divalproex Sodium 500 mg 12/09/20 09:00 12/10/20 09:40 Divalproex Sodium Er 500 Mg Tab.Er.24h PO 500 mg DAILY YOLANDA Administration Divalproex Sodium 1,000 mg 12/09/20 21:00 12/09/20 20:12 Divalproex Sodium Er 500 Mg Tab.Er.24h PO 1,000 mg BEDTIME YOLANDA Administration Furosemide 40 mg 12/10/20 09:00 Furosemide 40 Mg/4 Ml Vial IVPUSH Q12H [facility] Protocol Omeprazole 20 mg 12/09/20 06:30 12/10/20 05:58 Omeprazole 20 Mg Capsule. PO 20 mg DAILY@0630 [facility] Administration Pharmacy Consult 1 each 12/08/20 21:28 Consult Rx Perform Med Rec MISCELLANE ONCE PRN Consult order Potassium Phos/Sodium Phos 1 packet 12/09/20 09:00 12/09/20 09:59 Sodium,Potassium Phosphates Powd.Pack PO 1 packet DAILY YOLANDA Administration Rivaroxaban 15 mg 12/09/20 09:00 12/09/20 09:58 Rivaroxaban 15 Mg Tablet PO 15 mg DAILY YOLANDA Administration Senna 17.2 mg 12/09/20 01:01 Sennosides 8.6 Mg Tablet PO BEDTIME PRN Constipation Sodium Chloride 3 ml 12/09/20 08:00 12/09/20 20:14 0.9 % Sodium Chloride Flush 3 Ml Syringe IVFLUSH 3 ml QSHIFT YOLANDA Administration Time Spent With Patient Time: Total time spent is greater than 50% in coordination of care (as documented) at patient's floor/unit and/or counseling patient: 18 Time with patient: 15 - 24 minutes
[2020-12-10 10:16] LABS: Anion Gap 12 (12-20); Blood Urea Nitrogen 38 mg/dL (9-16); Calcium 8.1 mg/dL (8.4-10.2); Carbon Dioxide 27 mmol/L (22-29); Chloride 107 mmol/L (96-108); Creatinine Clr Calc Pharmacy 45.1; Estimated Glomerular Filt Rate 36; Glucose Random 165 mg/dL (60-115); Potassium 3.8 mmol/L (3.3-5.1); Sodium 142 mmol/L (135-145)
[2020-12-10 11:55] VITALS: BP 128/83; PULSE 104; RESP 17; TEMP 36.8; O2SAT 98
--- NOTE | 2020-12-10 12:22 | MHC.CM.PN ---
PER CONVERSATION WITH ANA OF [facility] ([phone]),SHE IS REQUESTING UPDATES ON WHEN PATIENT MAY RETURN HOME. HE IS ACTIVE WITH [facility], AND A REFERRAL IS NOW PLACED. [facility] PROVIDER CHAI ([phone]) HAS BEEN UPDATED WITH PLAN FOR PATIENT'S RETURN HOME. HE ASKS THAT IF ANY FURTHER UPDATES COME IN ON MONDAY, THAT CM CALL VIOLETTA @ [phone]. PATIENT RECEIVING IV LASIX
--- NOTE | 2020-12-10 14:03 | PM.PNNEP ---
Subjective Subjective Date of Service: 12/10/20 Principal diagnosis: CHF, AF Interval history: Events noted. All recent data reviewed Physical Exam Vital Signs: Vital Signs: Last Vital Signs Temp 98.3 F 12/10/20 11:55 Pulse 104 H 12/10/20 11:55 Resp 17 12/10/20 11:55 BP 128/83 12/10/20 11:55 Pulse Ox 98 12/10/20 11:55 Body Mass Index 29.5 Const: General: no acute distress Neck: Neck: Yes supple Resp: Auscultation: diminished lung sounds Cardio: Heart sounds: no rubs GI: Palpation (GI): Soft to palpation Neuro: General: moves all extremities Objective Data Labs CBC & Chem 7: 12/09/20 07:08 12/10/20 09:32 Labs: Laboratory Results - last 24 hr 12/09/20 12/09/20 12/09/20 07:08 16:45 16:45 Sodium Potassium Chloride Carbon Dioxide Anion Gap BUN Creatinine Estim Creat Clear Calc Estimated GFR Random Glucose Calcium U Random Total Protein 121 H Urine Cocaine Screen POSITIVE H Tacrolimus 4.9 L 12/10/20 09:32 Sodium 142 Potassium 3.8 Chloride 107 Carbon Dioxide 27 Anion Gap 12 BUN 38 H Creatinine 1.89 H Estim Creat Clear Calc 45.1 Estimated GFR 36 Random Glucose 165 H Calcium 8.1 L U Random Total Protein Urine Cocaine Screen Tacrolimus Microbiology Microbiology Results: Microbiology 12/08/20 20:23 Blood - Venous Blood Culture - Preliminary No growth after 24 hours. 12/08/20 20:23 Blood - Venous Blood Culture - Preliminary No growth after 24 hours. 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
[2020-12-10 16:00] VITALS: BP 134/96; PULSE 103; RESP 18; TEMP 36.6; O2SAT 96
[2020-12-10 20:00] VITALS: BP 152/98; PULSE 98; RESP 18; TEMP 36.6; O2SAT 99
[2020-12-10] MEDS: Divalproex Sodium ER 500 MG TAB.ER.24H 1000 MG PO (20:08)
[2020-12-10] MEDS: Sennosides 8.6 MG TABLET 17.2 MG PO (20:16)
[2020-12-11] VITALS (8 sets, daily range): BP systolic 119–158; BP diastolic 88–99; PULSE 89–123; RESP 16–18; TEMP 36.4–37.3; O2SAT 96–98
--- NOTE | 2020-12-11 | ECG_ITS ---
Test Reason : WIDE COMPLEX CHECK Blood Pressure : / mmHG Vent. Rate : 107 BPM Atrial Rate : 108 BPM P-R Int : 000 ms QRS Dur : 136 ms QT Int : 364 ms P-R-T Axes : 000 -64 110 degrees QTc Int : 485 ms Atrial fibrillation with rapid ventricular response Right bundle branch block Left anterior fascicular block Bifascicular block Moderate voltage criteria for LVH, may be normal variant T wave abnormality, consider lateral ischemia Abnormal ECG When compared with ECG of 08-DEC-2020 18:33, No significant change was found Referred By: Neetu Trejo Electronically Signed By:South Jones
[2020-12-11] MEDS: 0.9 % Sodium Chloride Flush 3 ML SYRINGE IVFLUSH ×3 (00:19→15:14)
[2020-12-11] MEDS: Omeprazole 20 MG CAPSULE.DR PO (05:55)
[2020-12-11] MEDS: Furosemide 40 MG/4 ML VIAL IVPUSH ×2 (09:47→22:55)
[2020-12-11] MEDS: dilTIAZem HCL CD 120 MG CAP.ER.DEG PO (09:49)
[2020-12-11] MEDS: Sodium,Potassium Phosphates POWD.PACK 1 PACKET PO (09:50)
[2020-12-11] MEDS: Rivaroxaban 15 MG TABLET PO (09:51)
[2020-12-11] MEDS: ARIPiprazole 30 MG TABLET PO (09:51)
[2020-12-11] MEDS: Divalproex Sodium ER 500 MG TAB.ER.24H PO (09:52)
--- NOTE | 2020-12-11 09:58 | P.PNIM_ITS ---
Subjective Subjective Date of Service: 12/11/20 Interval History: seen in f/u for heart failure exacerbation. Feels better, legs less swollen, has pain in the right big toe Review of Systems Gen: no fever Resp: no sob, no cough CV: no chest, no DRAKE, no leg edema GI: No n/v, no abd pain Neuro: No confusion Pain in the foot Physical Exam Vital Signs: Vital Signs: Last Vital Signs Temp 98.6 F 12/11/20 07:49 Pulse 105 H 12/11/20 09:49 Resp 18 12/11/20 07:49 BP 147/93 H 12/11/20 09:49 Pulse Ox 98 12/11/20 07:49 Body Mass Index 29.5 General: AO X 3, no acute distress Resp: CTA bilateral CVS: S1,S2,RRR, 2+ pitting edema GI: +BS, NT, no distention Skin: No rash Neuro: motor grossly intact Psych: appropriate affect Objective Data Current Medications Generic Name Dose Route Start Last Admin Trade Name Freq PRN Reason Stop Dose Admin Acetaminophen 650 mg 12/09/20 01:01 Acetaminophen 325 Mg Tablet PO Q6H PRN Pain, Mild (Pain Scale 1-3) Albuterol/Ipratropium 3 ml 12/09/20 01:02 Albuterol/Iprat 2.5/0.5mg 3 Ml Ampul.Neb INHALE RQ4H PRN Shortness of Breath/Wheezing Aripiprazole 30 mg 12/09/20 09:00 12/11/20 09:51 Aripiprazole 30 Mg Tablet PO 30 mg DAILY YOLANDA Administration Diltiazem HCl 120 mg 12/09/20 09:00 12/11/20 09:49 Diltiazem Hcl Cd 120 Mg Cap.Er.Deg PO 120 mg DAILY YOLANDA Administration Protocol Diltiazem HCl 10 mg 12/09/20 03:48 12/09/20 09:57 Diltiazem Hcl 50 Mg/10 Ml Vial IVPUSH 10 mg Q4H PRN Administration HR>120 Divalproex Sodium 500 mg 12/09/20 09:00 12/11/20 09:52 Divalproex Sodium Er 500 Mg Tab.Er.24h PO 500 mg DAILY YOLANDA Administration Divalproex Sodium 1,000 mg 12/09/20 21:00 12/10/20 20:08 Divalproex Sodium Er 500 Mg Tab.Er.24h PO 1,000 mg BEDTIME YOLANDA Administration Furosemide 40 mg 12/10/20 09:00 12/11/20 09:47 Furosemide 40 Mg/4 Ml Vial IVPUSH 40 mg Q12H YOLANDA Administration Protocol Omeprazole 20 mg 12/09/20 06:30 12/11/20 05:55 Omeprazole 20 Mg Capsule.Dr PO 20 mg DAILY@0630 [facility] Administration Pharmacy Consult 1 each 12/08/20 21:28 Consult Rx Perform Med Rec MISCELLANE ONCE PRN Consult order Potassium Phos/Sodium Phos 1 packet 12/09/20 09:00 12/11/20 09:50 Sodium,Potassium Phosphates Powd.Pack PO 1 packet DAILY YOLANDA Administration Rivaroxaban 15 mg 12/09/20 09:00 12/11/20 09:51 Rivaroxaban 15 Mg Tablet PO 15 mg DAILY YOLANDA Administration Senna 17.2 mg 12/09/20 01:01 12/10/20 20:16 Sennosides 8.6 Mg Tablet PO 17.2 mg BEDTIME PRN Administration Constipation Sodium Chloride 3 ml 12/09/20 08:00 12/11/20 09:48 0.9 % Sodium Chloride Flush 3 Ml Syringe IVFLUSH 3 ml QSHIFT [facility] Administration Labs CBC & Chem 7: 12/09/20 07:08 12/10/20 09:32 Microbiology Microbiology Results: Microbiology 12/08/20 20:23 Blood - Venous Blood Culture - Preliminary No growth after 48 hours. 12/08/20 20:23 Blood - Venous Blood Culture - Preliminary No growth after 48 hours. 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 C/W diuresis; urine cocaine positive Shall continue home dose of tacrolimus BP needs to be kept at goal; Low sodium diet Renal functions improving Shall closely follow up Status: Acute (2) Renal failure, acute on chronic: Status: Acute (3) Atrial fibrillation: Status: Acute (4) Congestive heart failure: Status: Acute Assessment and Plan: 60-year-old male with a past medical history of hypertension, hyperlipidemia, CHF, AFib, history of heart block status post pacemaker, history of renal transplant, recent history of pneumonia presented to the hospital with a chief complaint of shortness of breath. Acute on chronic systolic heart failure--improving -continue IV Lasix for another day and reassess CKD/ANA/cardiorenal syndrome--Cr is better, monitor s/p renal transplant, continue meds as deemed apropriate by Nephrology Recent history of pneumonia: Patient currently afebrile. Chest x-ray showed infiltrates-likely clearing from 2 weeks ago. Recommended repeat chest x-ray in 4 weeks. Follow the fever curve. History of AFib: Continue home diltiazem. Monitor on telemetry. Continue home Xarelto.
--- NOTE | 2020-12-11 10:14 | P.PNIM_ITS ---
Subjective Subjective Interval History: late entry for 12/10, seen in f/u for heart failure exacerbation. Persistent swelling in leg, sob Review of Systems Gen: no fever Resp: no sob, no cough CV: no chest, no DRAKE, no leg edema GI: No n/v, no abd pain Neuro: No confusion Pain in the foot Physical Exam Vital Signs: Vital Signs: Last Vital Signs Temp 98.6 F 12/11/20 07:49 Pulse 105 H 12/11/20 09:49 Resp 18 12/11/20 07:49 BP 147/93 H 12/11/20 09:49 Pulse Ox 98 12/11/20 07:49 Body Mass Index 29.5 HENMT: Other: General: AO X 3, no acute distress Resp: CTA bilateral CVS: S1,S2,RRR GI: +BS, NT, no distention Skin: No rash Neuro: motor grossly intact Psych: appropriate affect Objective Data Current Medications Generic Name Dose Route Start Last Admin Trade Name Freq PRN Reason Stop Dose Admin Acetaminophen 650 mg 12/09/20 01:01 Acetaminophen 325 Mg Tablet PO Q6H PRN Pain, Mild (Pain Scale 1-3) Albuterol/Ipratropium 3 ml 12/09/20 01:02 Albuterol/Iprat 2.5/0.5mg 3 Ml Ampul.Neb INHALE RQ4H PRN Shortness of Breath/Wheezing Aripiprazole 30 mg 12/09/20 09:00 12/11/20 09:51 Aripiprazole 30 Mg Tablet PO 30 mg DAILY YOLANDA Administration Diltiazem HCl 120 mg 12/09/20 09:00 12/11/20 09:49 Diltiazem Hcl Cd 120 Mg Cap.Er.Deg PO 120 mg DAILY YOLANDA Administration Protocol Diltiazem HCl 10 mg 12/09/20 03:48 12/09/20 09:57 Diltiazem Hcl 50 Mg/10 Ml Vial IVPUSH 10 mg Q4H PRN Administration HR>120 Divalproex Sodium 500 mg 12/09/20 09:00 12/11/20 09:52 Divalproex Sodium Er 500 Mg Tab.Er.24h PO 500 mg DAILY YOLANDA Administration Divalproex Sodium 1,000 mg 12/09/20 21:00 12/10/20 20:08 Divalproex Sodium Er 500 Mg Tab.Er.24h PO 1,000 mg BEDTIME YOLANDA Administration Furosemide 40 mg 12/10/20 09:00 12/11/20 09:47 Furosemide 40 Mg/4 Ml Vial IVPUSH 40 mg Q12H YOLANDA Administration Protocol Omeprazole 20 mg 12/09/20 06:30 12/11/20 05:55 Omeprazole 20 Mg Capsule. PO 20 mg DAILY@0630 [facility] Administration Pharmacy Consult 1 each 12/08/20 21:28 Consult Rx Perform Med Rec MISCELLANE ONCE PRN Consult order Potassium Phos/Sodium Phos 1 packet 12/09/20 09:00 12/11/20 09:50 Sodium,Potassium Phosphates Powd.Pack PO 1 packet DAILY YOLANDA Administration Rivaroxaban 15 mg 12/09/20 09:00 12/11/20 09:51 Rivaroxaban 15 Mg Tablet PO 15 mg DAILY YOLANDA Administration Senna 17.2 mg 12/09/20 01:01 12/10/20 20:16 Sennosides 8.6 Mg Tablet PO 17.2 mg BEDTIME PRN Administration Constipation Sodium Chloride 3 ml 12/09/20 08:00 12/11/20 09:48 0.9 % Sodium Chloride Flush 3 Ml Syringe IVFLUSH 3 ml QSHIFT [facility] Administration Labs CBC & Chem 7: 12/09/20 07:08 12/10/20 09:32 Microbiology Microbiology Results: Microbiology 12/08/20 20:23 Blood - Venous Blood Culture - Preliminary No growth after 48 hours. 12/08/20 20:23 Blood - Venous Blood Culture - Preliminary No growth after 48 hours. 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 C/W diuresis; urine cocaine positive Shall continue home dose of tacrolimus BP needs to be kept at goal; Low sodium diet Renal functions improving Shall closely follow up Status: Acute (2) Renal failure, acute on chronic: Status: Acute (3) Atrial fibrillation: Status: Acute (4) Congestive heart failure: Status: Acute Assessment and Plan: 60-year-old male with a past medical history of hypertension, hyperlipidemia, CHF, AFib, history of heart block status post pacemaker, history of renal transplant, recent history of pneumonia presented to the hospital with a chief complaint of shortness of breath. Acute on chronic systolic heart failure--improving -continue IV Lasix CKD/ANA/cardiorenal syndrome--improving, monitor Cr s/p renal transplant, continue meds as deemed appropriate by Nephrology Recent history of pneumonia: Patient currently afebrile. Chest x-ray showed infiltrates-likely clearing from 2 weeks ago. Recommended repeat chest x-ray in 4 weeks. Follow the fever curve. History of AFib: Continue home diltiazem. Monitor on telemetry. Continue home Xarelto. late entry for 12/10
--- NOTE | 2020-12-11 11:17 | MHC.CM.PN ---
PATIENT TO REMAIN THROUGH THE WEEKEND. [facility] A[facility] ([phone]) AND VIOLETTA ([phone]) MADE AWARE. MESSAGE SENT VIA [employer] TO [facility] TO INFORM THEM.
[2020-12-11 11:42] LABS: Red Cell Distribution Width 15.4 % (11.0-16.0)
[2020-12-11 11:44] LABS: Hematocrit 44.3 % (42-52); Hemoglobin 13.7 g/dl (14.0-18.0); Mean Corpuscular HGB Conc 30.9 g/dl (31.0-36.0); Mean Corpuscular Hemoglobin 28.8 pg (27.0-33.0); Mean Corpuscular Volume 93.3 fL (80-98); Mean Platelet Volume 10.6 fL (9.4-12.4); Platelet Count 146 X10*3/uL (160-400); Red Blood Count 4.75 X10*6/uL (4.60-5.80); White Blood Count 7.8 X10*3/uL (4.8-10.8)
[2020-12-11 12:10] LABS: B Type Natriuretic Peptide 394 pg/mL (<100)
--- NOTE | 2020-12-11 12:10 | PM.PNCARD ---
Subjective Subjective Date of Service: 12/11/20 Principal diagnosis: CHF, AF, CMP Interval history: Cardiology follow up for the above. Seen at 0915. Today he reports breathing is comfortable at rest. Slept well. No chest pains, palpitations. Lower legs and feet still swollen but less. They are tender to touch. Wearing O2 with nasal cannula. Review of Systems Review of Systems as above Physical Exam Vital Signs: Last Vital Signs Temp 98.9 F 12/11/20 11:19 Pulse 123 H 12/11/20 11:19 Resp 18 12/11/20 11:19 BP 158/99 H 12/11/20 11:19 Pulse Ox 97 12/11/20 11:19 Body Mass Index 29.5 Const General: cooperative, no acute distress, alert and awake Orientation/consciousness: patient oriented x3 Neck Neck: Yes normal visual inspection Resp Other: mildly coarse lungs sounds in bases Effort & Inspection: normal respiratory effort, able to speak in complete sentences and not labored Auscultation: clear to auscultation bilaterally, no rhonchi and no wheezes Cardio Other: Heart tones irregularly irregular, no clear murmur Jugular venous distension: JVD present Palpation: normal PMI Rate: regular rate Heart sounds: S1 normal heart sound present and S2 normal heart sound present Peripheral pulses: Peripheral pulses 2+ throughout GI Inspection: Yes normal to inspection Neuro General: patient oriented x3 Extrem Other: Soft pitting edema 2+, lower legs and feet Results Labs and Meds Result diagrams: 12/11/20 11:29 12/10/20 09:32 Lab results: Laboratory Results - last 24 hr 12/11/20 11:29 WBC 7.8 RBC 4.75 Hgb 13.7 L Hct 44.3 MCV 93.3 MCH 28.8 MCHC 30.9 L RDW 15.4 Plt Count 146 L MPV 10.6 Absolute Nucleated RBC 0.000 Nucleated RBC % (auto) 0.0 Progress Note: A&P Assessment and plan (1) Congestive heart failure: Status: Acute Assessment and Plan: Admit with sob, edema. Recent [facility] admit with PNA. Evidence of fluid overload on exam. Last echo 2019 shows EF 50-55%, impaired filling. Initially thought to have acute on chronic diastolic HF only however echo completed this visit shows EF 15-20%, LA severely dilated, mild , Mod increase RVSP. Acute systolic/ acute on chronic diastolic HF. Being diuresed with IV Lasix with neg fluid balance of 3000 cc since admit. He reports breathing and edema improving. Still has JVD and significant pitting edema in lower legs. Sat 98% on 2L nasal cannula. Needs ongoing diuresis with IV Lasix. Strict I+O monitoring. Close monitoring of electrolyte and kidney function with electrolyte replacement as warranted. We will follow (2) Atrial fibrillation: Status: Acute Assessment and Plan: Isatu of PAF. Remote outpt monitoring recently shows elevated afib rates. Has had recent illness with PNA and now CHF. Tele shows rates average 100 with peak of 140s this admit. Will stop Diltiazem due to finding of CMP. Will start on Metoprolol tartrate 25mg Q 8 hr. Ongoing tele monitoring. Continue Xarelto at renal dose. No reports of bleeding issues. (3) Renal failure, acute on chronic: Status: Acute Assessment and Plan: Labs pending for today. Cr had been coming down yesterday. (4) Cardiomyopathy: Status: Acute Assessment and Plan: New finding of CMP. Could be related to AF RVR. Will need ischemic eval once stabilized. Starting on Metoprolol. No ramon/ arb due to his acute on chronic kidney ds. Fall Risk Details Current Medications: Current Medications Generic Name Dose Route Start Last Admin Trade Name Erikq PRN Reason Stop Dose Admin Acetaminophen 650 mg 12/09/20 01:01 Acetaminophen 325 Mg Tablet PO Q6H PRN Pain, Mild (Pain Scale 1-3) Albuterol/Ipratropium 3 ml 12/09/20 01:02 Albuterol/Iprat 2.5/0.5mg 3 Ml Ampul.Neb INHALE RQ4H PRN Shortness of Breath/Wheezing Aripiprazole 30 mg 12/09/20 09:00 12/11/20 09:51 Aripiprazole 30 Mg Tablet PO 30 mg DAILY YOLANDA Administration Diltiazem HCl 10 mg 12/09/20 03:48 12/09/20 09:57 Diltiazem Hcl 50 Mg/10 Ml Vial IVPUSH 10 mg Q4H PRN Administration HR>120 Divalproex Sodium 500 mg 12/09/20 09:00 12/11/20 09:52 Divalproex Sodium Er 500 Mg Tab.Er.24h PO 500 mg DAILY YOLANDA Administration Divalproex Sodium 1,000 mg 12/09/20 21:00 12/10/20 20:08 Divalproex Sodium Er 500 Mg Tab.Er.24h PO 1,000 mg BEDTIME YOLANDA Administration Furosemide 40 mg 12/10/20 09:00 12/11/20 09:47 Furosemide 40 Mg/4 Ml Vial IVPUSH 40 mg Q12H YOLANDA Administration Protocol Metoprolol Tartrate 25 mg 12/11/20 15:00 Metoprolol Tartrate 25 Mg Tablet PO TID [facility] Protocol Omeprazole 20 mg 12/09/20 06:30 12/11/20 05:55 Omeprazole 20 Mg Capsule. PO 20 mg DAILY@0630 [facility] Administration Pharmacy Consult 1 each 12/08/20 21:28 Consult Rx Perform Med Rec MISCELLANE ONCE PRN Consult order Potassium Phos/Sodium Phos 1 packet 12/09/20 09:00 12/11/20 09:50 Sodium,Potassium Phosphates Powd.Pack PO 1 packet DAILY YOLANDA Administration Prednisone 20 mg 12/11/20 12:00 Prednisone 20 Mg Tablet PO DAILY YOLANDA Rivaroxaban 15 mg 12/09/20 09:00 12/11/20 09:51 Rivaroxaban 15 Mg Tablet PO 15 mg DAILY YOLANDA Administration Senna 17.2 mg 12/09/20 01:01 12/10/20 20:16 Sennosides 8.6 Mg Tablet PO 17.2 mg BEDTIME PRN Administration Constipation Sodium Chloride 3 ml 12/09/20 08:00 12/11/20 09:48 0.9 % Sodium Chloride Flush 3 Ml Syringe IVFLUSH 3 ml QSHIFT [facility] Administration Tacrolimus 2 mg 12/11/20 12:00 Tacrolimus 1 Mg Capsule PO BID [facility] Time Spent With Patient Time: Total time spent is greater than 50% in coordination of care (as documented) at patient's floor/unit and/or counseling patient: 18 Time with patient: 15 - 24 minutes
[2020-12-11] MEDS: predniSONE 20 MG TABLET PO (12:18)
--- NOTE | 2020-12-11 12:19 | PM.PNNEP ---
Subjective Subjective Date of Service: 12/11/20 Principal diagnosis: CHF, AF Interval history: Seen AM. Events noted. D/W Hospitalist Physical Exam Vital Signs: Vital Signs: Last Vital Signs Temp 98.9 F 12/11/20 11:19 Pulse 123 H 12/11/20 11:19 Resp 18 12/11/20 11:19 BP 158/99 H 12/11/20 11:19 Pulse Ox 97 12/11/20 11:19 Body Mass Index 29.5 Const: Other: Feels febrile Neck: Neck: Yes supple Resp: Auscultation: diminished lung sounds Cardio: Heart sounds: no rubs GI: Palpation (GI): Soft to palpation Neuro: General: moves all extremities Objective Data Labs CBC & Chem 7: 12/11/20 11:29 12/10/20 09:32 Labs: Laboratory Results - last 24 hr 12/11/20 12/11/20 11:29 11:29 WBC 7.8 RBC 4.75 Hgb 13.7 L Hct 44.3 MCV 93.3 MCH 28.8 MCHC 30.9 L RDW 15.4 Plt Count 146 L MPV 10.6 Absolute Nucleated RBC 0.000 Nucleated RBC % (auto) 0.0 B-Natriuretic Peptide 394 H Microbiology Microbiology Results: Microbiology 12/08/20 20:23 Blood - Venous Blood Culture - Preliminary No growth after 48 hours. 12/08/20 20:23 Blood - Venous Blood Culture - Preliminary No growth after 48 hours. 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
[2020-12-11 12:35] LABS: Anion Gap 11 (12-20); Blood Urea Nitrogen 35 mg/dL (9-16); Calcium 8.5 mg/dL (8.4-10.2); Carbon Dioxide 31 mmol/L (22-29); Chloride 104 mmol/L (96-108); Creatinine Clr Calc Pharmacy 45.5; Estimated Glomerular Filt Rate 37; Glucose Random 120 mg/dL (60-115); Sodium 142 mmol/L (135-145)
[2020-12-11 13:07] LABS: Complement C3 86 mg/dL (82-185)
[2020-12-11] MEDS: Tacrolimus 1 MG CAPSULE 2 MG PO ×2 (13:13→22:55)
[2020-12-11] MEDS: Metoprolol Tartrate 25 MG TABLET PO ×2 (13:13→22:55)
[2020-12-11] MEDS: Divalproex Sodium ER 500 MG TAB.ER.24H 1000 MG PO (22:55)
[2020-12-12] VITALS (10 sets, daily range): BP systolic 107–148; BP diastolic 69–94; PULSE 83–92; RESP 15–19; TEMP 36.1–36.8; O2SAT 96–98
[2020-12-12] MEDS: 0.9 % Sodium Chloride Flush 3 ML SYRINGE IVFLUSH ×4 (00:07→21:07)
[2020-12-12] MEDS: Omeprazole 20 MG CAPSULE.DR PO (06:12)
[2020-12-12] MEDS: Furosemide 40 MG/4 ML VIAL IVPUSH ×2 (07:59→21:07)
[2020-12-12] MEDS: Sodium,Potassium Phosphates POWD.PACK 1 PACKET PO (08:00)
[2020-12-12] MEDS: ARIPiprazole 30 MG TABLET PO (08:00)
[2020-12-12] MEDS: Rivaroxaban 15 MG TABLET PO (08:00)
[2020-12-12] MEDS: Metoprolol Tartrate 25 MG TABLET PO ×3 (08:00→21:06)
[2020-12-12] MEDS: Divalproex Sodium ER 500 MG TAB.ER.24H PO (08:00)
[2020-12-12] MEDS: predniSONE 20 MG TABLET PO (08:00)
[2020-12-12] MEDS: Tacrolimus 1 MG CAPSULE 2 MG PO ×2 (09:38→21:07)
--- NOTE | 2020-12-12 09:54 | HO.PM.IMPN ---
Subjective Subjective Date of Service: 12/12/20 Interval History: Seen in f/u for heart failure exacerbation in setting of CKD w/ transplanted kidney. He remains very shortness with minimal effort and has persistent swelling in the leg, slighltly better, HR has improved. Review of Systems Gen: no fever Resp: + sob, no cough CV: no chest, + DRAKE, + leg edema GI: No n/v, no abd pain Neuro: No confusion Pain in the foot Physical Exam Vital Signs: Vital Signs: Last Vital Signs Temp 97.9 F 12/12/20 07:45 Pulse 87 12/12/20 08:00 Resp 19 12/12/20 07:45 BP 109/94 H 12/12/20 08:00 Pulse Ox 97 12/12/20 07:45 Body Mass Index 29.5 HENMT: Other: General: AO X 3, no acute distress Resp: diminished breath sound, easily sob following minimal conversation CVS: iregulary iregular, 2 to 3+ pitting edema, +JVD GI: +BS, NT, no distention Skin: No rash Neuro: motor grossly intact Psych: appropriate affect Objective Data Current Medications Generic Name Dose Route Start Last Admin Trade Name Freq PRN Reason Stop Dose Admin Acetaminophen 650 mg 12/09/20 01:01 Acetaminophen 325 Mg Tablet PO Q6H PRN Pain, Mild (Pain Scale 1-3) Albuterol/Ipratropium 3 ml 12/09/20 01:02 Albuterol/Iprat 2.5/0.5mg 3 Ml Ampul.Neb INHALE RQ4H PRN Shortness of Breath/Wheezing Aripiprazole 30 mg 12/09/20 09:00 12/12/20 08:00 Aripiprazole 30 Mg Tablet PO 30 mg DAILY YOLANDA Administration Diltiazem HCl 10 mg 12/09/20 03:48 12/09/20 09:57 Diltiazem Hcl 50 Mg/10 Ml Vial IVPUSH 10 mg Q4H PRN Administration HR>120 Divalproex Sodium 500 mg 12/09/20 09:00 12/12/20 08:00 Divalproex Sodium Er 500 Mg Tab.Er.24h PO 500 mg DAILY YOLANDA Administration Divalproex Sodium 1,000 mg 12/09/20 21:00 12/11/20 22:55 Divalproex Sodium Er 500 Mg Tab.Er.24h PO 1,000 mg BEDTIME YOLANDA Administration Furosemide 40 mg 12/10/20 09:00 12/12/20 07:59 Furosemide 40 Mg/4 Ml Vial IVPUSH 40 mg Q12H YOLANDA Administration Protocol Metoprolol Tartrate 25 mg 12/11/20 15:00 12/12/20 08:00 Metoprolol Tartrate 25 Mg Tablet PO 25 mg TID YOLANDA Administration Protocol Omeprazole 20 mg 12/09/20 06:30 12/12/20 06:12 Omeprazole 20 Mg Capsule. PO 20 mg DAILY@0630 [facility] Administration Pharmacy Consult 1 each 12/08/20 21:28 Consult Rx Perform Med Rec MISCELLANE ONCE PRN Consult order Potassium Phos/Sodium Phos 1 packet 12/09/20 09:00 12/12/20 08:00 Sodium,Potassium Phosphates Powd.Pack PO 1 packet DAILY YOLANDA Administration Prednisone 20 mg 12/11/20 12:00 12/12/20 08:00 Prednisone 20 Mg Tablet PO 20 mg DAILY YOLANDA Administration Rivaroxaban 15 mg 12/09/20 09:00 12/12/20 08:00 Rivaroxaban 15 Mg Tablet PO 15 mg DAILY YOLANDA Administration Senna 17.2 mg 12/09/20 01:01 12/10/20 20:16 Sennosides 8.6 Mg Tablet PO 17.2 mg BEDTIME PRN Administration Constipation Sodium Chloride 3 ml 12/09/20 08:00 12/12/20 07:59 0.9 % Sodium Chloride Flush 3 Ml Syringe IVFLUSH 3 ml QSHIFT YOLANDA Administration Tacrolimus 2 mg 12/11/20 12:00 12/12/20 09:38 Tacrolimus 1 Mg Capsule PO 2 mg BID YOLANDA Administration Labs CBC & Chem 7: 12/11/20 11:29 12/11/20 11:29 Microbiology Microbiology Results: Microbiology 12/08/20 20:23 Blood - Venous Blood Culture - Preliminary No growth after 48 hours. 12/08/20 20:23 Blood - Venous Blood Culture - Preliminary No growth after 48 hours. Assessment and Plan (1) Renal transplant disorder: Status: Acute (2) Cardiomyopathy: Status: Acute Assessment and Plan: 60-year-old male with a past medical history of hypertension, hyperlipidemia, CHF, AFib, history of heart block status post pacemaker, history of renal transplant, recent history of pneumonia presented to the hospital with a chief complaint of shortness of breath. Acute on chronic systolic heart failure--with markedly suppressed EF, persitent symptoms of heart failure causing decrease in function, he continues to needs IV diuretics to improves symptoms, and needs close monitoring of hemodynamics and electrolytes -cardiology following CKD/ANA/cardiorenal syndrome--improving, monitor Cr closely in light of renal transplant continue Tacrolimus and prednisone s/p renal transplant, Nephrology following, Continue transplant meds Recent history of pneumonia: Patient currently afebrile. Chest x-ray showed infiltrates-likely clearing from 2 weeks ago. Recommended repeat chest x-ray in 4 weeks. Follow the fever curve. History of AFib: Continue home diltiazem. Monitor on telemetry. Continue home Xarelto. Needs for hospitalization: persistent acute heart failure with persistent dyspnea with minimal acticitily and signs of fluid overload and need for IV diuretics and close csrdiac monitoring, frequrent assesment of vital and close monitoring of shifts in electrolytes particulary potassium in light of diuretic use
[2020-12-12 11:52] LABS: Anion Gap 13 (12-20); Blood Urea Nitrogen 40 mg/dL (9-16); Carbon Dioxide 28 mmol/L (22-29); Chloride 101 mmol/L (96-108); Creatinine Clr Calc Pharmacy 43.2; Estimated Glomerular Filt Rate 35; Glucose Random 248 mg/dL (60-115); Potassium 3.7 mmol/L (3.3-5.1); Sodium 138 mmol/L (135-145)
--- NOTE | 2020-12-12 13:27 | PM.PNNEP ---
Subjective Subjective Date of Service: 12/12/20 Principal diagnosis: CHF, AF Interval history: Events noted. All recent data reviewed Physical Exam Vital Signs: Vital Signs: Last Vital Signs Temp 97.6 F 12/12/20 12:00 Pulse 86 12/12/20 12:00 Resp 18 12/12/20 12:00 BP 112/74 12/12/20 12:00 Pulse Ox 97 12/12/20 12:00 Body Mass Index 29.5 Const: General: No acute distress Neck: Neck: Yes supple Resp: Auscultation: diminished lung sounds Cardio: Heart sounds: no rubs GI: Palpation (GI): Soft to palpation Neuro: General: moves all extremities Objective Data Labs CBC & Chem 7: 12/11/20 11:29 12/12/20 10:55 Labs: Laboratory Results - last 24 hr 12/12/20 10:55 Sodium 138 Potassium 3.7 Chloride 101 Carbon Dioxide 28 Anion Gap 13 BUN 40 H Creatinine 1.97 H Estim Creat Clear Calc 43.2 Estimated GFR 35 Random Glucose 248 H D Calcium 8.0 L Microbiology Microbiology Results: Microbiology 12/08/20 20:23 Blood - Venous Blood Culture - Preliminary No growth after 48 hours. 12/08/20 20:23 Blood - Venous Blood Culture - Preliminary No growth after 48 hours. Assessment & Plan Assessment and plan (1) Renal transplant disorder: Problem details: ANA due to tubular dysfunction Has transplant glomerulopathy with proteinuria C/W diuresis; urine cocaine positive Shall continue home dose of tacrolimus BP needs to be kept at goal; Low sodium diet Renal functions improved & stable Consider switching Cardizem to carvedilol ? Add low dose Imdur Shall closely follow up Status: Acute Time Spent With Patient Time: Total time spent is greater than 50% in coordination of care (as documented) at patient's floor/unit and/or counseling patient:
[2020-12-12] MEDS: Divalproex Sodium ER 500 MG TAB.ER.24H 1000 MG PO (21:06)
[2020-12-13] VITALS (10 sets, daily range): BP systolic 132–148; BP diastolic 83–99; PULSE 60–96; RESP 16–18; TEMP 36–36.4; O2SAT 93–98; BMI 27.7
[2020-12-13] MEDS: Omeprazole 20 MG CAPSULE.DR PO (05:47)
[2020-12-13] MEDS: Sodium,Potassium Phosphates POWD.PACK 1 PACKET PO (07:46)
[2020-12-13] MEDS: Tacrolimus 1 MG CAPSULE 2 MG PO ×2 (07:46→21:16)
[2020-12-13] MEDS: 0.9 % Sodium Chloride Flush 3 ML SYRINGE IVFLUSH ×3 (07:47→23:35)
[2020-12-13] MEDS: Divalproex Sodium ER 500 MG TAB.ER.24H PO (07:47)
[2020-12-13] MEDS: predniSONE 20 MG TABLET PO (07:47)
[2020-12-13] MEDS: ARIPiprazole 30 MG TABLET PO (07:47)
[2020-12-13] MEDS: Rivaroxaban 15 MG TABLET PO (07:47)
[2020-12-13] MEDS: Furosemide 40 MG/4 ML VIAL IVPUSH ×2 (07:47→21:12)
[2020-12-13] MEDS: Metoprolol Tartrate 25 MG TABLET PO ×3 (07:48→21:12)
--- NOTE | 2020-12-13 09:25 | P.PNIM_ITS ---
Subjective Subjective Date of Service: 12/13/20 Interval History: Seen in f/u for CHF, feel better, swelling going, down yet still more sob with exertion Review of Systems Gen: no fever Resp: + sob, no cough CV: no chest, + DRAKE, + leg edema GI: No n/v, no abd pain Neuro: No confusion Pain in the foot Physical Exam Vital Signs: Vital Signs: Last Vital Signs Temp 97.5 F 12/13/20 07:40 Pulse 96 12/13/20 07:48 Resp 16 12/13/20 07:40 BP 140/99 H 12/13/20 07:48 Pulse Ox 96 12/13/20 08:16 Body Mass Index 27.7 HENMT: Other: General: AO X 3, no acute distress Resp: diminished breath sound, easily sob following minimal conversation CVS: iregulary iregular, 2 to 3+ pitting edema, +JVD GI: +BS, NT, no distention Skin: No rash Neuro: motor grossly intact Psych: appropriate affect Objective Data Current Medications Generic Name Dose Route Start Last Admin Trade Name Freq PRN Reason Stop Dose Admin Acetaminophen 650 mg 12/09/20 01:01 Acetaminophen 325 Mg Tablet PO Q6H PRN Pain, Mild (Pain Scale 1-3) Albuterol/Ipratropium 3 ml 12/09/20 01:02 Albuterol/Iprat 2.5/0.5mg 3 Ml Ampul.Neb INHALE RQ4H PRN Shortness of Breath/Wheezing Aripiprazole 30 mg 12/09/20 09:00 12/13/20 07:47 Aripiprazole 30 Mg Tablet PO 30 mg DAILY YOLANDA Administration Diltiazem HCl 10 mg 12/09/20 03:48 12/09/20 09:57 Diltiazem Hcl 50 Mg/10 Ml Vial IVPUSH 10 mg Q4H PRN Administration HR>120 Divalproex Sodium 500 mg 12/09/20 09:00 12/13/20 07:47 Divalproex Sodium Er 500 Mg Tab.Er.24h PO 500 mg DAILY YOLANDA Administration Divalproex Sodium 1,000 mg 12/09/20 21:00 12/12/20 21:06 Divalproex Sodium Er 500 Mg Tab.Er.24h PO 1,000 mg BEDTIME YOLANDA Administration Furosemide 40 mg 12/10/20 09:00 12/13/20 07:47 Furosemide 40 Mg/4 Ml Vial IVPUSH 40 mg Q12H YOLANDA Administration Protocol Metoprolol Tartrate 25 mg 12/11/20 15:00 12/13/20 07:48 Metoprolol Tartrate 25 Mg Tablet PO 25 mg TID YOLANDA Administration Protocol Omeprazole 20 mg 12/09/20 06:30 12/13/20 05:47 Omeprazole 20 Mg Capsule. PO 20 mg DAILY@0630 [facility] Administration Pharmacy Consult 1 each 12/08/20 21:28 Consult Rx Perform Med Rec MISCELLANE ONCE PRN Consult order Potassium Phos/Sodium Phos 1 packet 12/09/20 09:00 12/13/20 07:46 Sodium,Potassium Phosphates Powd.Pack PO 1 packet DAILY YOLANDA Administration Prednisone 20 mg 12/11/20 12:00 12/13/20 07:47 Prednisone 20 Mg Tablet PO 20 mg DAILY YOLANDA Administration Rivaroxaban 15 mg 12/09/20 09:00 12/13/20 07:47 Rivaroxaban 15 Mg Tablet PO 15 mg DAILY YOLANDA Administration Senna 17.2 mg 12/09/20 01:01 12/10/20 20:16 Sennosides 8.6 Mg Tablet PO 17.2 mg BEDTIME PRN Administration Constipation Sodium Chloride 3 ml 12/09/20 08:00 12/13/20 07:47 0.9 % Sodium Chloride Flush 3 Ml Syringe IVFLUSH 3 ml QSHIFT YOLANDA Administration Tacrolimus 2 mg 12/11/20 12:00 12/13/20 07:46 Tacrolimus 1 Mg Capsule PO 2 mg BID YOLANDA Administration Labs CBC & Chem 7: 12/11/20 11:29 12/12/20 10:55 Microbiology Microbiology Results: Microbiology 12/08/20 20:23 Blood - Venous Blood Culture - Preliminary No growth after 48 hours. 12/08/20 20:23 Blood - Venous Blood Culture - Preliminary No growth after 48 hours. Assessment and Plan (1) Renal transplant disorder: Status: Acute Assessment and Plan: 60-year-old male with a past medical history of hypertension, hyperlipidemia, CHF, AFib, history of heart block status post pacemaker, history of renal transplant, recent history of pneumonia presented to the hospital with a chief complaint of shortness of breath. Acute on chronic systolic heart failure--with markedly suppressed EF EF, persitent symptoms of heart failure causing decrease in function, he continues to needs IV diuretics at this, and needs close monitoring of hemodynamics and electrolytes -cardiology following -follow I/O, daily weight CKD/ANA/cardiorenal syndrome--improving, monitor Cr closely in light of renal transplant continue Tacrolimus and prednisone -check labs -Nephro following s/p renal transplant, Nephrology following, Continue transplant meds Recent history of pneumonia: Patient currently afebrile. Chest x-ray showed infiltrates-likely clearing from 2 weeks ago. Recommended repeat chest x-ray in 4 weeks. Follow the fever curve. History of AFib: Continue home diltiazem. Monitor on telemetry. Continue home Xarelto. Needs for hospitalization: persistent acute heart failure with persistent dyspnea with minimal activity and signs of fluid overload and need for IV diuretics and close csrdiac monitoring, frequrent assesment of vital and close monitoring of shifts in electrolytes particulary potassium in light of diuretic use
[2020-12-13 10:01] LABS: Anion Gap 12 (12-20); Blood Urea Nitrogen 43 mg/dL (9-16); Calcium 8.8 mg/dL (8.4-10.2); Carbon Dioxide 31 mmol/L (22-29); Chloride 102 mmol/L (96-108); Creatinine Clr Calc Pharmacy 44.8; Estimated Glomerular Filt Rate 37; Glucose Random 131 mg/dL (60-115); Potassium 3.9 mmol/L (3.3-5.1); Sodium 141 mmol/L (135-145)
[2020-12-13 10:15] LABS: Hematocrit 39.4 % (42-52); Hemoglobin 12.3 g/dl (14.0-18.0); Mean Corpuscular HGB Conc 31.2 g/dl (31.0-36.0); Mean Corpuscular Hemoglobin 28.7 pg (27.0-33.0); Mean Corpuscular Volume 92.1 fL (80-98); Mean Platelet Volume 11.7 fL (9.4-12.4); Platelet Count 125 X10*3/uL (160-400); Red Blood Count 4.28 X10*6/uL (4.60-5.80); White Blood Count 7.6 X10*3/uL (4.8-10.8)
--- NOTE | 2020-12-13 11:13 | PM.PNNEP ---
Subjective Subjective Date of Service: 12/13/20 Principal diagnosis: CHF, AF Interval history: Feels better, swelling better. Not SOB Physical Exam Vital Signs: Vital Signs: Last Vital Signs Temp 97.5 F 12/13/20 07:40 Pulse 96 12/13/20 07:48 Resp 16 12/13/20 07:40 BP 140/99 H 12/13/20 07:48 Pulse Ox 96 12/13/20 08:16 Body Mass Index 27.7 Const: General: No acute distress Orientation/consciousness: patient oriented x3 Neck: Neck: Yes supple Resp: Auscultation: diminished lung sounds Cardio: Heart sounds: no rubs GI: Palpation (GI): Soft to palpation Neuro: General: patient oriented x3 and moves all extremities Objective Data Labs CBC & Chem 7: 12/13/20 09:15 12/13/20 09:15 Labs: Laboratory Results - last 24 hr 12/12/20 12/13/20 12/13/20 10:55 09:15 09:15 WBC 7.6 RBC 4.28 L Hgb 12.3 L Hct 39.4 L MCV 92.1 MCH 28.7 MCHC 31.2 RDW 15.0 Plt Count 125 L MPV 11.7 Absolute Nucleated RBC 0.000 Nucleated RBC % (auto) 0.0 Sodium 138 141 Potassium 3.7 3.9 Chloride 101 102 Carbon Dioxide 28 31 H Anion Gap 13 12 BUN 40 H 43 H Creatinine 1.97 H 1.85 H Estim Creat Clear Calc 43.2 44.8 Estimated GFR 35 37 Random Glucose 248 H D 131 H D Calcium 8.0 L 8.8 D Microbiology Microbiology Results: Microbiology 12/08/20 20:23 Blood - Venous Blood Culture - Preliminary No growth after 48 hours. 12/08/20 20:23 Blood - Venous Blood Culture - Preliminary No growth after 48 hours. Assessment & Plan Assessment and plan (1) Renal transplant disorder: Problem details: ANA due to tubular dysfunction Has transplant glomerulopathy with proteinuria C/W diuresis; urine cocaine positive Shall continue home dose of tacrolimus BP needs to be kept at goal; Low sodium diet Renal functions improved & stable Consider switching metoprolol to carvedilol ? Add low dose Imdur Shall closely follow up Status: Acute Time Spent With Patient Time: Total time spent is greater than 50% in coordination of care (as documented) at patient's floor/unit and/or counseling patient:
[2020-12-13 14:55] LABS: Magnesium 1.4 mg/dL (1.6-2.6)
[2020-12-13] MEDS: Magnesium Sulfate/H2O 2 GM/50 ML PIGGYBACK IV ×2 (16:31→18:34)
[2020-12-13] MEDS: Divalproex Sodium ER 500 MG TAB.ER.24H 1000 MG PO (21:16)
[2020-12-14] VITALS (7 sets, daily range): BP systolic 104–158; BP diastolic 54–95; PULSE 82–99; RESP 14–18; TEMP 36.2–36.4; O2SAT 93–97; BMI 27.1
[2020-12-14] MEDS: Omeprazole 20 MG CAPSULE.DR PO (05:33)
[2020-12-14 07:22] LABS: Anion Gap 12 (12-20); Blood Urea Nitrogen 50 mg/dL (9-16); Carbon Dioxide 33 mmol/L (22-29); Chloride 101 mmol/L (96-108); Creatinine Clr Calc Pharmacy 45.8; Estimated Glomerular Filt Rate 42; Glucose Random 145 mg/dL (60-115); Potassium 3.9 mmol/L (3.3-5.1); Sodium 142 mmol/L (135-145)
--- NOTE | 2020-12-14 08:49 | P.PNIM_ITS ---
Subjective Subjective Date of Service: 12/14/20 Interval History: Feels better, swelling better. Minimal sob Review of Systems Gen: no fever Resp: + sob, no cough CV: no chest, + DRAKE, + leg edema GI: No n/v, no abd pain Neuro: No confusion Pain in the foot Physical Exam Vital Signs: Vital Signs: Last Vital Signs Temp 97.1 F 12/14/20 08:00 Pulse 97 12/14/20 08:00 Resp 18 12/14/20 08:00 BP 158/95 H 12/14/20 08:00 Pulse Ox 96 12/14/20 08:00 Body Mass Index 27.1 HENMT: Other: General: AO X 3, no acute distress Resp: diminished breath sound, easily sob following minimal conversation CVS: iregulary iregular, 2+ pitting edema, +JVD GI: +BS, NT, no distention Skin: No rash Neuro: motor grossly intact Psych: appropriate affect Objective Data Current Medications Generic Name Dose Route Start Last Admin Trade Name Erikq PRN Reason Stop Dose Admin Acetaminophen 650 mg 12/09/20 01:01 Acetaminophen 325 Mg Tablet PO Q6H PRN Pain, Mild (Pain Scale 1-3) Albuterol/Ipratropium 3 ml 12/09/20 01:02 Albuterol/Iprat 2.5/0.5mg 3 Ml Ampul.Neb INHALE RQ4H PRN Shortness of Breath/Wheezing Aripiprazole 30 mg 12/09/20 09:00 12/13/20 07:47 Aripiprazole 30 Mg Tablet PO 30 mg DAILY YOLANDA Administration Diltiazem HCl 10 mg 12/09/20 03:48 12/09/20 09:57 Diltiazem Hcl 50 Mg/10 Ml Vial IVPUSH 10 mg Q4H PRN Administration HR>120 Divalproex Sodium 500 mg 12/09/20 09:00 12/13/20 07:47 Divalproex Sodium Er 500 Mg Tab.Er.24h PO 500 mg DAILY YOLANDA Administration Divalproex Sodium 1,000 mg 12/09/20 21:00 12/13/20 21:16 Divalproex Sodium Er 500 Mg Tab.Er.24h PO 1,000 mg BEDTIME YOLANDA Administration Furosemide 40 mg 12/10/20 09:00 12/13/20 21:12 Furosemide 40 Mg/4 Ml Vial IVPUSH 40 mg Q12H YOLANDA Administration Protocol Metoprolol Tartrate 25 mg 12/11/20 15:00 12/13/20 21:12 Metoprolol Tartrate 25 Mg Tablet PO 25 mg TID YOLANDA Administration Protocol Omeprazole 20 mg 12/09/20 06:30 12/14/20 05:33 Omeprazole 20 Mg Capsule. PO 20 mg DAILY@0630 YOLANDA Administration Pharmacy Consult 1 each 12/08/20 21:28 Consult Rx Perform Med Rec MISCELLANE ONCE PRN Consult order Potassium Phos/Sodium Phos 1 packet 12/09/20 09:00 12/13/20 07:46 Sodium,Potassium Phosphates Powd.Pack PO 1 packet DAILY YOLANDA Administration Prednisone 20 mg 12/11/20 12:00 12/13/20 07:47 Prednisone 20 Mg Tablet PO 20 mg DAILY YOLANDA Administration Rivaroxaban 15 mg 12/09/20 09:00 12/13/20 07:47 Rivaroxaban 15 Mg Tablet PO 15 mg DAILY YOLANDA Administration Senna 17.2 mg 12/09/20 01:01 12/10/20 20:16 Sennosides 8.6 Mg Tablet PO 17.2 mg BEDTIME PRN Administration Constipation Sodium Chloride 3 ml 12/09/20 08:00 12/13/20 23:35 0.9 % Sodium Chloride Flush 3 Ml Syringe IVFLUSH 3 ml QSHIFT YOLANDA Administration Tacrolimus 2 mg 12/11/20 12:00 12/13/20 21:16 Tacrolimus 1 Mg Capsule PO 2 mg BID YOLANDA Administration Labs CBC & Chem 7: 12/13/20 09:15 12/14/20 06:17 Microbiology Microbiology Results: Microbiology 12/08/20 20:23 Blood - Venous Blood Culture - Final No growth after 5 days. 12/08/20 20:23 Blood - Venous Blood Culture - Final No growth after 5 days. Assessment and Plan (1) Renal transplant disorder: Status: Acute Assessment and Plan: 60-year-old male with a past medical history of hypertension, hyperlipidemia, CHF, AFib, history of heart block status post pacemaker, history of renal transplant, recent history of pneumonia presented to the hospital with a chief complaint of shortness of breath. Acute on chronic systolic heart failure--with markedly suppressed EF EF, p ersitent symptoms of heart failure causing decrease in function, -negative 5 liters - he continues to needs IV diuretics at this, and needs close monitoring of hemodynamics and electrolytes -Maybe switch to oral Lasix today -cardiology following -follow I/O, daily weight Ventricular tach in setting of CM--BB, correct electrolytes and Mag, cardiology to assess for need for ICD CKD/ANA/cardiorenal syndrome--improving, monitor Cr closely in light of renal transplant continue Tacrolimus and prednisone -Nephro following s/p renal transplant, Nephrology following, Continue transplant meds Hypomagnesemia--corrected, add PO mag, Recent history of pneumonia: Patient currently afebrile. Chest x-ray showed infiltrates-likely clearing from 2 weeks ago. Recommended repeat chest x-ray in 4 weeks. Follow the fever curve. History of AFib: Continue home diltiazem. Monitor on telemetry. Continue home Xarelto. Needs for hospitalization: persistent acute heart failure with persistent d yspnea with minimal activity and signs of fluid overload and need for IV diuretics and close csrdiac monitoring, frequrent assesment of vital and close monitoring of shifts in electrolytes particulary potassium in light of diuretic use Subtance abuse--including cocaine, cessation advised PT eval, out of bed
[2020-12-14] MEDS: Furosemide 40 MG/4 ML VIAL IVPUSH ×2 (09:55→20:07)
[2020-12-14] MEDS: Divalproex Sodium ER 500 MG TAB.ER.24H PO (09:55)
[2020-12-14] MEDS: Tacrolimus 1 MG CAPSULE 2 MG PO ×2 (09:55→20:08)
[2020-12-14] MEDS: ARIPiprazole 30 MG TABLET PO (09:56)
[2020-12-14] MEDS: Sodium,Potassium Phosphates POWD.PACK 1 PACKET PO (09:56)
[2020-12-14] MEDS: 0.9 % Sodium Chloride Flush 3 ML SYRINGE IVFLUSH ×3 (09:56→20:08)
[2020-12-14] MEDS: predniSONE 20 MG TABLET PO (09:56)
[2020-12-14] MEDS: Rivaroxaban 15 MG TABLET PO (09:56)
[2020-12-14] MEDS: Metoprolol Tartrate 25 MG TABLET PO ×3 (09:56→21:27)
--- NOTE | 2020-12-14 11:53 | MHC.CM.PN ---
EMR REVIEWED, PER MULTIDISCIPLINARY ROUNDS PT WILL CONT TO BE DIURESED ON IV LASIX, NO D/C PLANNED FOR TODAY, NURSE FROM [facility] UPDATED AT 11:45AM. CM WILL CONT TO FOLLOW D/C NEEDS.
--- NOTE | 2020-12-14 14:38 | MHC.CM.PN ---
CM CONTACTED PT'S [facility] CONTACT AT 2:32PM ([phone]) TO NOTIFY OF PENDING D/C TOMORROW. 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 DISCHARGE PLAN: HOME W/RESUMP OF DAILY VNA THROUGH A BETTER LIFE AND L[employer] AND [employer] OPERATOR SERVICES, WILL NEED [facility].
--- NOTE | 2020-12-14 15:43 | PM.PNCARD ---
Subjective Subjective Date of Service: 12/14/20 Principal diagnosis: CHF, AF Interval history: Patient is feeling better with much improved shortness of breath. Walking today. Heart rate remains in upper 90s. Blood pressure is also elevated. Remains to have leg edema but says this is significantly improved. Diuresed well overall 5 L. palpitations, lightheadedness, syncope. Review of Systems Constitutional: Reports no additional constitutional complaints Cardiovascular: Denies chest pain, Reports leg edema (Improving), Denies palpitations and Reports dyspnea on exertion Respiratory: Reports no additional respiratory complaints and Reports dyspnea on exertion Gastrointestinal: Reports no additional gastrointestinal complaints Genitourinary: Reports no additional male genitourinary complaints Reports system reviewed and no additional complaints, except as documented Psychiatric: Reports no additional psychiatric complaints Endocrine: Reports no additional endocrine complaints and Denies palpitations Hematologic/Lymphatic: Reports no additional hematologic/lymphatic complaints Physical Exam Vital Signs: Last Vital Signs Temp 97.5 F 12/14/20 15:15 Pulse 99 12/14/20 15:15 Resp 14 12/14/20 15:15 BP 143/90 H 12/14/20 15:15 Pulse Ox 97 12/14/20 15:15 Body Mass Index 27.1 Const General: cooperative, comfortable, no acute distress, alert and awake Orientation/consciousness: patient oriented x3 Neck Neck: Yes trachea midline, Yes supple and Yes JVD Resp Effort & Inspection: normal respiratory effort Auscultation: no rales and diminished lung sounds Cardio Jugular venous distension: JVD Palpation: abnormal PMI displaced PMI Rhythm: abnormal rhythm irregularly irregular Heart sounds: S1 normal heart sound present and S2 normal heart sound present GI Auscultation: normal bowel sounds Neuro General: patient oriented x3 and no focal motor deficits Extrem General: No clubbing, No cyanosis and Yes edema Results Labs and Meds Result diagrams: 12/13/20 09:15 12/14/20 06:17 Lab results: Laboratory Results - last 24 hr 12/14/20 06:17 Sodium 142 Potassium 3.9 Chloride 101 Carbon Dioxide 33 H Anion Gap 12 BUN 50 H Creatinine 1.67 H Estim Creat Clear Calc 45.8 Estimated GFR 42 Random Glucose 145 H Calcium 9.0 Magnesium 2.0 Progress Note: A&P Assessment and plan (1) Heart failure with reduced ejection fraction: Status: Acute Assessment and Plan: Heart failure with reduced ejection fraction question tachycardia mediated cardiomyopathy. This is a new finding. Other causes such as cocaine induced cardomyopathy should also be consider. Ischemic workup should be performed, will be pursued as outpatient. Continue aggressive medical therapy. Still appears to be fluid overloaded. Continue IV Lasix diuresis. Renal function is gradually improving. Strict intake and output chart. Heart failure education should be provided to him as well. Continue to maximize medical therapy. Will increase metoprolol to 25 mg q.6 hours. Not sure if he will benefit rhythm control as outpatient. Should add afterload reduction therapy either with renin angiotensin antagonist and if not okay with renal team should consider hydralazine/Isordil combination therapy. This was discussed with the hospitalist team. Blood pressure is elevated in should be able to tolerate this therapy. (2) Atrial fibrillation: Status: Acute Assessment and Plan: Atrial fibrillation borderline rate control. This appears new finding of persistent atrial fibrillation. Should consider rhythm control approach, patient not having currently any acute symptoms of atrial fibrillation, however may have tachycardia mediated cardiomyopathy. He increase metoprolol to 25 mg q.6 hours and can eventually switch to 50 mg b.i.d. for heart rate is controlled within 70 and 80 beats per minute., currently on renally adjusted dose of Xarelto 15 mg daily. Will continue to follow the patient Fall Risk Details Current Medications: Current Medications Generic Name Dose Route Start Last Admin Trade Name Freq PRN Reason Stop Dose Admin Acetaminophen 650 mg 12/09/20 01:01 Acetaminophen 325 Mg Tablet PO Q6H PRN Pain, Mild (Pain Scale 1-3) Albuterol/Ipratropium 3 ml 12/09/20 01:02 Albuterol/Iprat 2.5/0.5mg 3 Ml Ampul.Neb INHALE RQ4H PRN Shortness of Breath/Wheezing Aripiprazole 30 mg 12/09/20 09:00 12/14/20 09:56 Aripiprazole 30 Mg Tablet PO 30 mg DAILY YOLANDA Administration Diltiazem HCl 10 mg 12/09/20 03:48 12/09/20 09:57 Diltiazem Hcl 50 Mg/10 Ml Vial IVPUSH 10 mg Q4H PRN Administration HR>120 Divalproex Sodium 500 mg 12/09/20 09:00 12/14/20 09:55 Divalproex Sodium Er 500 Mg Tab.Er.24h PO 500 mg DAILY YOLANDA Administration Divalproex Sodium 1,000 mg 12/09/20 21:00 12/13/20 21:16 Divalproex Sodium Er 500 Mg Tab.Er.24h PO 1,000 mg BEDTIME YOLANDA Administration Furosemide 40 mg 12/10/20 09:00 12/14/20 09:55 Furosemide 40 Mg/4 Ml Vial IVPUSH 40 mg Q12H YOLANDA Administration Protocol Metoprolol Tartrate 25 mg 12/11/20 15:00 12/14/20 09:56 Metoprolol Tartrate 25 Mg Tablet PO 25 mg TID YOLANDA Administration Protocol Omeprazole 20 mg 12/09/20 06:30 12/14/20 05:33 Omeprazole 20 Mg Capsule. PO 20 mg DAILY@0630 [facility] Administration Pharmacy Consult 1 each 12/08/20 21:28 Consult Rx Perform Med Rec MISCELLANE ONCE PRN Consult order Potassium Phos/Sodium Phos 1 packet 12/09/20 09:00 12/14/20 09:56 Sodium,Potassium Phosphates Powd.Pack PO 1 packet DAILY YOLANDA Administration Prednisone 20 mg 12/11/20 12:00 12/14/20 09:56 Prednisone 20 Mg Tablet PO 20 mg DAILY YOLANDA Administration Rivaroxaban 15 mg 12/09/20 09:00 12/14/20 09:56 Rivaroxaban 15 Mg Tablet PO 15 mg DAILY YOLANDA Administration Senna 17.2 mg 12/09/20 01:01 12/10/20 20:16 Sennosides 8.6 Mg Tablet PO 17.2 mg BEDTIME PRN Administration Constipation Sodium Chloride 3 ml 12/09/20 08:00 12/14/20 09:56 0.9 % Sodium Chloride Flush 3 Ml Syringe IVFLUSH 3 ml QSHIFT YOLANDA Administration Tacrolimus 2 mg 12/11/20 12:00 12/14/20 09:55 Tacrolimus 1 Mg Capsule PO 2 mg BID YOLANDA Administration Time Spent With Patient Time: Total time spent is greater than 50% in coordination of care (as documented) at patient's floor/unit and/or counseling patient: Time with patient: 25 - 35 minutes
--- NOTE | 2020-12-14 16:56 | PM.PNNEP ---
Subjective Subjective Date of Service: 12/14/20 Principal diagnosis: CHF, AF Interval history: Feels better, swelling better. Minimal sob Physical Exam Vital Signs: Vital Signs: Last Vital Signs Temp 97.5 F 12/14/20 15:15 Pulse 99 12/14/20 15:15 Resp 14 12/14/20 15:15 BP 143/90 H 12/14/20 15:15 Pulse Ox 97 12/14/20 15:15 Body Mass Index 27.1 Const: General: cooperative Orientation/consciousness: patient oriented x3 Eyes: General: appearance normal, both eyes and all related structures Neck: Neck: Yes supple Resp: Effort & Inspection: normal respiratory effort Cardio: Palpation: no palpable S3 and no palpable S4 Rate: regular rate GI: Inspection: Yes obesity Palpation (GI): Soft to palpation Skin: Rashes: no rashes Neuro: General: patient oriented x3 Motor exam (neuro): No Asterixis during motor activity present Objective Data Labs CBC & Chem 7: 12/13/20 09:15 12/14/20 06:17 Labs: Laboratory Results - last 24 hr 12/14/20 06:17 Sodium 142 Potassium 3.9 Chloride 101 Carbon Dioxide 33 H Anion Gap 12 BUN 50 H Creatinine 1.67 H Estim Creat Clear Calc 45.8 Estimated GFR 42 Random Glucose 145 H Calcium 9.0 Magnesium 2.0 Microbiology Microbiology Results: Microbiology 12/08/20 20:23 Blood - Venous Blood Culture - Final No growth after 5 days. 12/08/20 20:23 Blood - Venous Blood Culture - Final No growth after 5 days. Assessment & Plan Assessment and plan (1) Renal transplant disorder: Status: Acute Assessment and Plan: 1) Renal transplant disorder: Problem details: ANA due to tubular dysfunction Has transplant glomerulopathy with proteinuria C/W diuresis; urine cocaine positive Shall continue home dose of Tacrolimus Check tacro level BP needs to be kept at goal; Low sodium diet Renal functions improved & stable low dose Imdur Shall closely follow up Time Spent With Patient Time: Total time spent is greater than 50% in coordination of care (as documented) at patient's floor/unit and/or counseling patient:
[2020-12-14] MEDS: Divalproex Sodium ER 500 MG TAB.ER.24H 1000 MG PO (20:07)
[2020-12-15] VITALS (7 sets, daily range): BP systolic 120–139; BP diastolic 72–97; PULSE 70–92; RESP 16–85; TEMP 36.2–36.6; O2SAT 95–98
[2020-12-15] MEDS: Acetaminophen 325 MG TABLET 650 MG PO (04:39)
[2020-12-15] MEDS: Omeprazole 20 MG CAPSULE.DR PO (04:39)
[2020-12-15 07:09] LABS: Anion Gap 12 (12-20); Blood Urea Nitrogen 55 mg/dL (9-16); Calcium 8.9 mg/dL (8.4-10.2); Carbon Dioxide 33 mmol/L (22-29); Chloride 100 mmol/L (96-108); Creatinine Clr Calc Pharmacy 43.5; Estimated Glomerular Filt Rate 39; Glucose Random 155 mg/dL (60-115); Magnesium 1.7 mg/dL (1.6-2.6); Potassium 4.1 mmol/L (3.3-5.1); Sodium 141 mmol/L (135-145)
[2020-12-15] MEDS: Rivaroxaban 15 MG TABLET PO (09:16)
[2020-12-15] MEDS: predniSONE 20 MG TABLET PO (09:16)
[2020-12-15] MEDS: Metoprolol Tartrate 25 MG TABLET PO ×3 (09:16→21:11)
[2020-12-15] MEDS: ARIPiprazole 30 MG TABLET PO (09:16)
[2020-12-15] MEDS: Divalproex Sodium ER 500 MG TAB.ER.24H PO (09:17)
[2020-12-15] MEDS: Tacrolimus 1 MG CAPSULE 2 MG PO ×2 (09:17→21:09)
[2020-12-15] MEDS: Sodium,Potassium Phosphates POWD.PACK 1 PACKET PO (09:18)
[2020-12-15] MEDS: Furosemide 40 MG/4 ML VIAL IVPUSH ×2 (10:28→21:10)
[2020-12-15] MEDS: 0.9 % Sodium Chloride Flush 3 ML SYRINGE IVFLUSH ×3 (10:28→21:09)
--- NOTE | 2020-12-15 11:06 | P.PNCA_ITS ---
Subjective Subjective Date of Service: 12/15/20 Principal diagnosis: CHF, AF Interval history: Patient has diuresed well. Overall cumulative negative balance of 6.2 L. Leg edema is still present. Shortness of breath is much improved. He is walking. He is tolerating increase metoprolol. Not started on after load reduction therapy. Renal function appears stable. Remains in atrial fibrillation. Review of Systems Constitutional: Reports no additional constitutional complaints Cardiovascular: Reports no additional cardiovascular complaints, Reports leg edema and Reports dyspnea on exertion Respiratory: Reports dyspnea on exertion Gastrointestinal: Reports no additional gastrointestinal complaints Genitourinary: Reports no additional male genitourinary complaints Reports system reviewed and no additional complaints, except as documented Psychiatric: Reports no additional psychiatric complaints Endocrine: Reports no additional endocrine complaints Physical Exam Vital Signs: Last Vital Signs Temp 97.9 F 12/15/20 07:44 Pulse 92 12/15/20 09:16 Resp 17 12/15/20 07:44 BP 131/84 12/15/20 09:16 Pulse Ox 96 12/15/20 07:44 Body Mass Index 27.1 Const General: cooperative, comfortable, no acute distress, alert and awake Orientation/consciousness: patient oriented x3 Neck Neck: Yes trachea midline, Yes supple and Yes JVD Resp Effort & Inspection: normal respiratory effort Auscultation: clear to auscultation bilaterally and diminished lung sounds Cardio Rhythm: abnormal rhythm irregularly irregular Heart sounds: S1 normal heart sound present and S2 normal heart sound present GI Auscultation: normal bowel sounds Skin General skin exam: no rashes or lesions noted Neuro General: patient oriented x3 Extrem General: No clubbing, No cyanosis and Yes edema Psych Appearance: grossly normal Results Labs and Meds Result diagrams: 12/13/20 09:15 12/15/20 05:58 Lab results: Laboratory Results - last 24 hr 12/15/20 12/15/20 05:58 05:58 Sodium 141 Potassium 4.1 Chloride 100 Carbon Dioxide 33 H Anion Gap 12 BUN 55 H Creatinine 1.76 H Estim Creat Clear Calc 43.5 Estimated GFR 39 Random Glucose 155 H Calcium 8.9 Magnesium 1.7 Cancelled Progress Note: A&P Assessment and plan (1) Heart failure with reduced ejection fraction: Status: Acute Assessment and Plan: Heart failure with reduced ejection fraction with newly detected severe cardiomyopathy question tachycardia mediated cardiomyopathy question alternative etiology. Will need further workup ischemic as an outpatient. Continue aggressive rate control with metoprolol. Continue diuresis he appears to be clinically fluid overloaded. Cardizem should be completely discontinued. If needed for better rate control can add low-dose digoxin therapy to his regimen. Will add hydralazine/Isordil combination is renal function is still elevated unless Nephrology is okay with using renin angiotensin aldosterone antagonist. Continue to trend BMP and BNP tomorrow. Continue strict intake and output chart. (2) Atrial fibrillation: Status: Acute Assessment and Plan: Atrial fibrillation, newly persistent. Continue rate control strategy. May need to discuss about rhythm control approach. Continue full oral anticoag ulation, currently on on Xarelto 15 mg daily. Will follow with the patient. Fall Risk Details Current Medications: Current Medications Generic Name Dose Route Start Last Admin Trade Name Freq PRN Reason Stop Dose Admin Acetaminophen 650 mg 12/09/20 01:01 12/15/20 04:39 Acetaminophen 325 Mg Tablet PO 650 mg Q6H PRN Administration Pain, Mild (Pain Scale 1-3) Albuterol/Ipratropium 3 ml 12/09/20 01:02 Albuterol/Iprat 2.5/0.5mg 3 Ml Ampul.Neb INHALE RQ4H PRN Shortness of Breath/Wheezing Aripiprazole 30 mg 12/09/20 09:00 12/15/20 09:16 Aripiprazole 30 Mg Tablet PO 30 mg DAILY YOLANDA Administration Diltiazem HCl 10 mg 12/09/20 03:48 12/09/20 09:57 Diltiazem Hcl 50 Mg/10 Ml Vial IVPUSH 10 mg Q4H PRN Administration HR>120 Divalproex Sodium 500 mg 12/09/20 09:00 12/15/20 09:17 Divalproex Sodium Er 500 Mg Tab.Er.24h PO 500 mg DAILY YOLANDA Administration Divalproex Sodium 1,000 mg 12/09/20 21:00 12/14/20 20:07 Divalproex Sodium Er 500 Mg Tab.Er.24h PO 1,000 mg BEDTIME YOLANDA Administration Furosemide 40 mg 12/10/20 09:00 12/15/20 10:28 Furosemide 40 Mg/4 Ml Vial IVPUSH 40 mg Q12H YOLANDA Administration Protocol Metoprolol Tartrate 25 mg 12/11/20 15:00 12/15/20 09:16 Metoprolol Tartrate 25 Mg Tablet PO 25 mg TID [facility] Administration Protocol Omeprazole 20 mg 12/09/20 06:30 12/15/20 04:39 Omeprazole 20 Mg Capsule. PO 20 mg DAILY@0630 [facility] [place] Administration Pharmacy Consult 1 each 12/08/20 21:28 Consult Rx Perform Med Rec MISCELLANE ONCE PRN Consult order Potassium Phos/Sodium Phos 1 packet 12/09/20 09:00 12/15/20 09:18 Sodium,Potassium Phosphates Powd.Pack PO 1 packet DAILY YOLANDA Administration Prednisone 20 mg 12/11/20 12:00 12/15/20 09:16 Prednisone 20 Mg Tablet PO 20 mg DAILY YOLANDA Administration Rivaroxaban 15 mg 12/09/20 09:00 12/15/20 09:16 Rivaroxaban 15 Mg Tablet PO 15 mg DAILY YOLANDA Administration Senna 17.2 mg 12/09/20 01:01 12/10/20 20:16 Sennosides 8.6 Mg Tablet PO 17.2 mg BEDTIME PRN Administration Constipation Sodium Chloride 3 ml 12/09/20 08:00 12/15/20 10:28 0.9 % Sodium Chloride Flush 3 Ml Syringe IVFLUSH 3 ml QSHIFT [facility] [place] Administration Tacrolimus 2 mg 12/11/20 12:00 12/15/20 09:17 Tacrolimus 1 Mg Capsule PO 2 mg BID YOLANDA Administration Time Spent With Patient Time: Total time spent is greater than 50% in coordination of care (as documented) at patient's floor/unit and/or counseling patient: Time with patient: 25 - 35 minutes
--- NOTE | 2020-12-15 12:20 | P.PNIM_ITS ---
Subjective Subjective Date of Service: 12/15/20 Interval History: Feels better, swelling better. Minimal sob Review of Systems Gen: no fever Resp: + sob, no cough CV: no chest, + DRAKE, + leg edema GI: No n/v, no abd pain Neuro: No confusion Pain in the foot Physical Exam Vital Signs: Vital Signs: Last Vital Signs Temp 97.2 F 12/15/20 11:46 Pulse 85 12/15/20 11:46 Resp 85 H 12/15/20 11:46 BP 121/72 12/15/20 11:46 Pulse Ox 95 12/15/20 11:46 Body Mass Index 27.1 HENMT: Other: General: AO X 3, no acute distress Resp: diminished breath sound, easily sob following minimal conversation CVS: iregulary iregular, 2+ pitting edema, +JVD GI: +BS, NT, no distention Skin: No rash, Neuro: motor grossly intact Psych: appropriate affect Objective Data Current Medications Generic Name Dose Route Start Last Admin Trade Name Erikq PRN Reason Stop Dose Admin Acetaminophen 650 mg 12/09/20 01:01 12/15/20 04:39 Acetaminophen 325 Mg Tablet PO 650 mg Q6H PRN Administration Pain, Mild (Pain Scale 1-3) Albuterol/Ipratropium 3 ml 12/09/20 01:02 Albuterol/Iprat 2.5/0.5mg 3 Ml Ampul.Neb INHALE RQ4H PRN Shortness of Breath/Wheezing Aripiprazole 30 mg 12/09/20 09:00 12/15/20 09:16 Aripiprazole 30 Mg Tablet PO 30 mg DAILY YOLANDA Administration Diltiazem HCl 10 mg 12/09/20 03:48 12/09/20 09:57 Diltiazem Hcl 50 Mg/10 Ml Vial IVPUSH 10 mg Q4H PRN Administration HR>120 Divalproex Sodium 500 mg 12/09/20 09:00 12/15/20 09:17 Divalproex Sodium Er 500 Mg Tab.Er.24h PO 500 mg DAILY YOLANDA Administration Divalproex Sodium 1,000 mg 12/09/20 21:00 12/14/20 20:07 Divalproex Sodium Er 500 Mg Tab.Er.24h PO 1,000 mg BEDTIME YOLANDA Administration Furosemide 40 mg 12/10/20 09:00 12/15/20 10:28 Furosemide 40 Mg/4 Ml Vial IVPUSH 40 mg Q12H [facility] Administration Protocol Hydralazine HCl 10 mg 12/15/20 12:00 Hydralazine Hcl 10 Mg Tablet PO BID [facility] Protocol Isosorbide Dinitrate 5 mg 12/15/20 12:00 Isosorbide Dinitrate 5 Mg Tablet PO BID [facility] Protocol Metoprolol Tartrate 25 mg 12/11/20 15:00 12/15/20 09:16 Metoprolol Tartrate 25 Mg Tablet PO 25 mg TID [facility] Administration Protocol Omeprazole 20 mg 12/09/20 06:30 12/15/20 04:39 Omeprazole 20 Mg Capsule. PO 20 mg DAILY@0630 [facility] Administration Pharmacy Consult 1 each 12/08/20 21:28 Consult Rx Perform Med Rec MISCELLANE ONCE PRN Consult order Potassium Phos/Sodium Phos 1 packet 12/09/20 09:00 12/15/20 09:18 Sodium,Potassium Phosphates Powd.Pack PO 1 packet DAILY YOLANDA Administration Prednisone 20 mg 12/11/20 12:00 12/15/20 09:16 Prednisone 20 Mg Tablet PO 20 mg DAILY YOLANDA Administration Rivaroxaban 15 mg 12/09/20 09:00 12/15/20 09:16 Rivaroxaban 15 Mg Tablet PO 15 mg DAILY [facility] Administration Senna 17.2 mg 12/09/20 01:01 12/10/20 20:16 Sennosides 8.6 Mg Tablet PO 17.2 mg BEDTIME PRN Administration Constipation Sodium Chloride 3 ml 12/09/20 08:00 12/15/20 10:28 0.9 % Sodium Chloride Flush 3 Ml Syringe IVFLUSH 3 ml QSHIFT [facility] Administration Tacrolimus 2 mg 12/11/20 12:00 12/15/20 09:17 Tacrolimus 1 Mg Capsule PO 2 mg BID [facility] Administration Labs CBC & Chem 7: 12/13/20 09:15 12/15/20 05:58 Microbiology Microbiology Results: Microbiology 12/08/20 20:23 Blood - Venous Blood Culture - Final No growth after 5 days. 12/08/20 20:23 Blood - Venous Blood Culture - Final No growth after 5 days. Assessment and Plan (1) Renal transplant disorder: Status: Acute Assessment and Plan: 60-year-old male with a past medical history of hypertension, hyperlipidemia, C HF, AFib, history of heart block status post pacemaker, history of renal transplant, recent history of pneumonia presented to the hospital with a chief complaint of shortness of breath. Acute on chronic systolic heart failure--with markedly suppressed EF EF, persitent symptoms of heart failure causing decrease in function, -negative 5 liters - he continues to needs IV diuretics at this, and needs close monitoring of hemodynamics and electrolytes -Additinal lasix dose today -cardiology following -follow I/O, daily weight Ventricular tach in setting of CM--BB, correct electrolytes and Mag, cardiology to assess for need for ICD CKD/ANA/cardiorenal syndrome--improving, monitor Cr closely in light of renal transplant continue Tacrolimus and prednisone -Nephro following s/p renal transplant, Nephrology following, Continue transplant meds Hypomagnesemia--corrected, add PO mag, Recent history of pneumonia: Patient currently afebrile. Chest x-ray showed infiltrates-likely clearing from 2 weeks ago. Recommended repeat chest x-ray in 4 weeks. Follow the fever curve. History of AFib: Off cardiazem, if needed will add ig, Metoprolol. Monitor on telemetry. Continue home Xarelto. Needs for hospitalization: persistent acute heart failure with persistent dyspnea with minimal activity and signs of fluid overload and need for IV diuretics and close cardiac monitoring, frequrent assesment of vital and close monitoring of shifts in electrolytes particulary potassium in light of diuretic use Subtance abuse--including cocaine, cessation advised PT eval, out of bed
[2020-12-15] MEDS: hydrALAZINE HCl 10 MG TABLET PO ×2 (12:53→21:11)
[2020-12-15] MEDS: Isosorbide Dinitrate 5 MG TABLET PO ×2 (12:53→21:10)
--- NOTE | 2020-12-15 13:56 | PM.PNNEP ---
Subjective Subjective Date of Service: 12/15/20 Principal diagnosis: CHF, AF Interval history: Feels better, swelling better. Minimal sob Physical Exam Vital Signs: Vital Signs: Last Vital Signs Temp 97.2 F 12/15/20 11:46 Pulse 85 12/15/20 11:46 Resp 85 H 12/15/20 11:46 BP 121/72 12/15/20 11:46 Pulse Ox 95 12/15/20 11:46 Body Mass Index 27.1 Const: General: cooperative Orientation/consciousness: patient oriented x3 Eyes: General: appearance normal, both eyes and all related structures Neck: Neck: Yes supple Resp: Effort & Inspection: normal respiratory effort Cardio: Palpation: no palpable S3 and no palpable S4 Rate: regular rate GI: Inspection: Yes obesity Palpation (GI): Soft to palpation Skin: Rashes: no rashes Neuro: General: patient oriented x3 Motor exam (neuro): No Asterixis during motor activity present Objective Data Labs CBC & Chem 7: 12/13/20 09:15 12/15/20 05:58 Labs: Laboratory Results - last 24 hr 12/15/20 12/15/20 05:58 05:58 Sodium 141 Potassium 4.1 Chloride 100 Carbon Dioxide 33 H Anion Gap 12 BUN 55 H Creatinine 1.76 H Estim Creat Clear Calc 43.5 Estimated GFR 39 Random Glucose 155 H Calcium 8.9 Magnesium 1.7 Cancelled Microbiology Microbiology Results: Microbiology 12/08/20 20:23 Blood - Venous Blood Culture - Final No growth after 5 days. 12/08/20 20:23 Blood - Venous Blood Culture - Final No growth after 5 days. Assessment & Plan Assessment and plan (1) Renal transplant disorder: Status: Acute Assessment and Plan: 1) Renal transplant disorder: Problem details: ANA due to tubular dysfunction Has transplant glomerulopathy with proteinuria C/W diuresis; urine cocaine positive Shall continue home dose of Tacrolimus Check tacro level Can increase LASIX to 80 mg QAM for 1- 2 days to increase diuresis. BP needs to be kept at goal; Low sodium diet Renal functions improved & stable low dose Imdur Shall closely follow up Time Spent With Patient Time: Total time spent is greater than 50% in coordination of care (as documented) at patient's floor/unit and/or counseling patient:
[2020-12-15] MEDS: Magnesium Oxide 400 MG TABLET PO (17:23)
[2020-12-15] MEDS: Divalproex Sodium ER 500 MG TAB.ER.24H 1000 MG PO (21:10)
[2020-12-16] VITALS (10 sets, daily range): BP systolic 102–138; BP diastolic 31–99; PULSE 74–97; RESP 16–20; TEMP 36.1–36.7; O2SAT 94–97; BMI 26.9
[2020-12-16] MEDS: Omeprazole 20 MG CAPSULE.DR PO (05:15)
[2020-12-16 06:36] LABS: Anion Gap 11 (12-20); Blood Urea Nitrogen 58 mg/dL (9-16); Calcium 9.1 mg/dL (8.4-10.2); Carbon Dioxide 34 mmol/L (22-29); Chloride 99 mmol/L (96-108); Creatinine Clr Calc Pharmacy 44.2; Estimated Glomerular Filt Rate 40; Glucose Random 133 mg/dL (60-115); Potassium 3.9 mmol/L (3.3-5.1); Sodium 140 mmol/L (135-145)
[2020-12-16] MEDS: 0.9 % Sodium Chloride Flush 3 ML SYRINGE IVFLUSH ×3 (08:42→20:30)
[2020-12-16] MEDS: Magnesium Oxide 400 MG TABLET PO ×2 (08:42→17:06)
[2020-12-16] MEDS: Tacrolimus 1 MG CAPSULE 2 MG PO ×2 (09:11→20:28)
[2020-12-16] MEDS: Sodium,Potassium Phosphates POWD.PACK 1 PACKET PO (09:11)
[2020-12-16] MEDS: Furosemide 40 MG/4 ML VIAL IVPUSH (09:11)
[2020-12-16] MEDS: Divalproex Sodium ER 500 MG TAB.ER.24H PO (09:12)
[2020-12-16] MEDS: predniSONE 20 MG TABLET PO (09:12)
[2020-12-16] MEDS: Isosorbide Dinitrate 5 MG TABLET PO ×2 (09:12→20:29)
[2020-12-16] MEDS: hydrALAZINE HCl 10 MG TABLET PO ×2 (09:12→20:28)
[2020-12-16] MEDS: ARIPiprazole 30 MG TABLET PO (09:12)
[2020-12-16] MEDS: Rivaroxaban 15 MG TABLET PO (09:12)
[2020-12-16] MEDS: Metoprolol Tartrate 25 MG TABLET PO (09:12)
--- NOTE | 2020-12-16 09:44 | PM.PNNEP ---
Subjective Subjective Date of Service: 12/16/20 Principal diagnosis: CHF, AF Interval history: Feels better, Able to walk around In a negative fluid balance Physical Exam Vital Signs: Vital Signs: Last Vital Signs Temp 97.7 F 12/16/20 07:37 Pulse 97 12/16/20 08:04 Resp 18 12/16/20 07:37 BP 120/92 H 12/16/20 08:04 Pulse Ox 95 12/16/20 08:04 Body Mass Index 26.9 Const: General: cooperative Orientation/consciousness: patient oriented x3 Eyes: General: appearance normal, both eyes and all related structures Neck: Neck: Yes supple Resp: Effort & Inspection: normal respiratory effort Cardio: Palpation: no palpable S3 and no palpable S4 Rate: regular rate GI: Inspection: Yes obesity Palpation (GI): Soft to palpation Skin: Rashes: no rashes Neuro: General: patient oriented x3 Motor exam (neuro): No Asterixis during motor activity present Objective Data Labs CBC & Chem 7: 12/13/20 09:15 12/16/20 05:42 Labs: Laboratory Results - last 24 hr 12/16/20 05:42 Sodium 140 Potassium 3.9 Chloride 99 Carbon Dioxide 34 H Anion Gap 11 L BUN 58 H Creatinine 1.73 H Estim Creat Clear Calc 44.2 Estimated GFR 40 Random Glucose 133 H Calcium 9.1 Microbiology Microbiology Results: Microbiology 12/08/20 20:23 Blood - Venous Blood Culture - Final No growth after 5 days. 12/08/20 20:23 Blood - Venous Blood Culture - Final No growth after 5 days. Assessment & Plan Assessment and plan (1) Renal transplant disorder: Status: Acute Assessment and Plan: 1) Renal transplant disorder: Problem details: AAN due to tubular dysfunction Has transplant glomerulopathy with proteinuria C/W diuresis; urine cocaine positive Shall continue home dose of Tacrolimus Check tacro level increase LASIX to 80 mg QAM for 1- 2 days to increase diuresis. Low sodium diet Renal functions stable Shall closely follow up Time Spent With Patient Time: Total time spent is greater than 50% in coordination of care (as documented) at patient's floor/unit and/or counseling patient:
--- NOTE | 2020-12-16 10:16 | PM.PNCARD ---
Subjective Subjective Date of Service: 12/16/20 <ADONAY Arreguin - Last Filed: 12/16/20 13:29> 12/16/20 <Arturo Rodriguez MD - Last Filed: 12/16/20 13:45> Principal diagnosis: CHF, AF <ADONAY Arreguin - Last Filed: 12/16/20 13:29> Interval history: Cardiology follow up for the above. Seen at 0945. Today he reports feeling good. He denies having sob. No wearing O2. No chest pains or palpitations. Legs still swollen but less. Ambulates in room with walker. <ADONAY Arreguin - Last Filed: 12/16/20 13:29> Review of Systems Review of Systems as above <ADONAY Arreguin - Last Filed: 12/16/20 13:29> Yes all other systems are reviewed and are negative <ADONAY Arreguin - Last Filed: 12/16/20 13:29> Physical Exam Vital Signs: Last Vital Signs Temp 97.7 F 12/16/20 07:37 Pulse 97 12/16/20 08:04 Resp 18 12/16/20 07:37 BP 120/92 H 12/16/20 08:04 Pulse Ox 95 12/16/20 08:04 Body Mass Index 26.9 <ADONAY Arreguin - Last Filed: 12/16/20 13:29> Const General: cooperative, no acute distress, alert and awake <ADONAY Arreguin - Last Filed: 12/16/20 13:29> Orientation/consciousness: patient oriented x3 <ADONAY Arreguin - Last Filed: 12/16/20 13:29> Neck Neck: Yes normal visual inspection and Yes no JVD <ADONAY Arreguin Last Filed: 12/16/20 13:29> Resp Effort & Inspection: normal respiratory effort, able to speak in complete sentences and not labored <ADONAY Arreguin Last Filed: 12/16/20 13:29> Auscultation: clear to auscultation bilaterally, no crackles, no rales, no rhonchi and no wheezes <Neetu TrejoDANNYC - Last Filed: 12/16/20 13:29> Cardio Other: Heart tones irregularly irreg <Neetu TrejoPATRICIABjC - Last Filed: 12/16/20 13:29> Palpation: normal PMI <Neetu TrejoDANNYC - Last Filed: 12/16/20 13:29> Rate: regular rate <Neetu TrejoPATRICIAArianne - Last Filed: 12/16/20 13:29> Heart sounds: S1 normal heart sound present and S2 normal heart sound present <Neetu TrejoPATRICIABjC - Last Filed: 12/16/20 13:29> Peripheral pulses: Peripheral pulses 2+ throughout <Neetu TrejoPATRICIABjC - Last Filed: 12/16/20 13:29> GI Inspection: Yes normal to inspection <Neetu TrejoPATRICIABjC - Last Filed: 12/16/20 13:29> Neuro General: patient oriented x3 <Neetu TrejoDANNYC - Last Filed: 12/16/20 13:29> Extrem Other: +2 edema in lower legs <Neetu TrejoPATRICIABjC - Last Filed: 12/16/20 13:29> Results Labs and Meds Result diagrams: : 12/13/20 09:15 12/16/20 05:42 <Neetu TrejoPATRICIABjC - Last Filed: 12/16/20 13:29> Lab results: Laboratory Results - last 24 hr 12/16/20 05:42 Sodium 140 Potassium 3.9 Chloride 99 Carbon Dioxide 34 H Anion Gap 11 L BUN 58 H Creatinine 1.73 H Estim Creat Clear Calc 44.2 Estimated GFR 40 Random Glucose 133 H Calcium 9.1 <Neetu TrejoPATRICIA-C - Last Filed: 12/16/20 13:29> Progress Note: A&P Assessment and plan (1) Congestive heart failure: Status: Acute <Neetu TrejoADONAY - Last Filed: 12/16/20 13:29> Assessment and Plan: Admit here with sob, edema. Had been recently admitted to [facility] [place] with PNA. Last echo 2019 shows EF 50-55%, impaired filling. Initially thought to have acute on chronic diastolic HF only however echo completed this visit shows EF 15-20%, LA severely dilated, mild , Mod increase RVSP. Acute systolic/ acute on chronic diastolic HF. Still Being diuresed with IV Lasix with neg fluid balance of 6400 cc since admit. He reports breathing and edema improving. Still has pitting edema in lower legs, his JVD and lungs improved. On RA with sat 95%. Cr 1.73, down from 1.76 yest. Continue to diuresis with IV Lasix. Hydralazine and Isordil were added for afterload and preload reduction. Can titrate as tolerated. Strict I+O monitoring. Close monitoring of electrolyte and kidney function with electrolyte replacement as warranted. We will follow <ADONAY Arreguin - Last Filed: 12/16/20 13:29> (2) Atrial fibrillation: Status: Acute <ADONAY Arreguin - Last Filed: 12/16/20 13:29> Assessment and Plan: Tele showing afib with rates 90s, looks like alternating bundle changes as well. Will check EKG today. Continue Metoprolol for rate control. No Diltiazem due to CMP. Continue Xarelto for anticoagulation, renal dose. Ongoing tele monitoring. <ADONAY Arreguin - Last Filed: 12/16/20 13:29> Patient seen and case discussed with Neetu Trejo. Patient not having any significant shortness of breath. Leg edema still persistent. Diuresing well. Atrial fibrillation with borderline rate control. Change to metoprolol 50 mg b.i.d.. Continue full oral anticoagulation currently on Xarelto 50 mg daily for renally adjusted dose. <Arturo Rodriguez MD - Last Filed: 12/16/20 13:45> (3) Cardiomyopathy: Status: Acute <ADONAY Arreguin - Last Filed: 12/16/20 13:29> Assessment and Plan: New finding this admit. Could be tachy mediated with his afib. Etiology not clear at present. Will need ischemic eval. Continue hydralazine, isordil, Metoprolol. Diuresing as above. <ADONAY Arreguin - Last Filed: 12/16/20 13:29> (4) Heart failure with reduced ejection fraction: Status: Acute <ADONAY Arreguin - Last Filed: 12/16/20 13:29> Assessment and Plan: Heart failure is severely reduced LV systolic dysfunction. Will require ischemic workup. Continue hydralazine Isordil combination. Switch to oral Lasix today. He has diuresed very well overall. Continue metoprolol therapy as neurohormonal modulation. Follow up as outpatient. <Arturo Rodriguez MD - Last Filed: 12/16/20 13:45> Fall Risk Details Current Medications: Current Medications Generic Name Dose Route Start Last Admin Trade Name Freq PRN Reason Stop Dose Admin Acetaminophen 650 mg 12/09/20 01:01 12/15/20 04:39 Acetaminophen 325 Mg Tablet PO 650 mg Q6H PRN Administration Pain, Mild (Pain Scale 1-3) Aripiprazole 30 mg 12/09/20 09:00 12/16/20 09:12 Aripiprazole 30 Mg Tablet PO 30 mg DAILY YOLANDA Administration Diltiazem HCl 10 mg 12/09/20 03:48 12/09/20 09:57 Diltiazem Hcl 50 Mg/10 Ml Vial IVPUSH 10 mg Q4H PRN Administration HR>120 Divalproex Sodium 500 mg 12/09/20 09:00 12/16/20 09:12 Divalproex Sodium Er 500 Mg Tab.Er.24h PO 500 mg DAILY YOLANDA Administration Divalproex Sodium 1,000 mg 12/09/20 21:00 12/15/20 21:10 Divalproex Sodium Er 500 Mg Tab.Er.24h PO 1,000 mg BEDTIME YOLANDA Administration Furosemide 40 mg 12/10/20 09:00 12/16/20 09:11 Furosemide 40 Mg/4 Ml Vial IVPUSH 40 mg Q12H YOLANDA Administration Protocol Hydralazine HCl 10 mg 12/15/20 12:00 12/16/20 09:12 Hydralazine Hcl 10 Mg Tablet PO 10 mg BID YOLANDA Administration Protocol Isosorbide Dinitrate 5 mg 12/15/20 12:00 12/16/20 09:12 Isosorbide Dinitrate 5 Mg Tablet PO 5 mg BID YOLANDA Administration Protocol Magnesium Oxide 400 mg 12/15/20 17:30 12/16/20 08:42 Magnesium Oxide 400 Mg Tablet PO 400 mg BIDPC YOLANDA Administration Metoprolol Tartrate 25 mg 12/11/20 15:00 12/16/20 09:12 Metoprolol Tartrate 25 Mg Tablet PO 25 mg TID YOLANDA Administration Protocol Omeprazole 20 mg 12/09/20 06:30 12/16/20 05:15 Omeprazole 20 Mg Capsule. PO 20 mg DAILY@0630 YOLANDA Administration Pharmacy Consult 1 each 12/08/20 21:28 Consult Rx Perform Med Rec MISCELLANE ONCE PRN Consult order Potassium Phos/Sodium Phos 1 packet 12/09/20 09:00 12/16/20 09:11 Sodium,Potassium Phosphates Powd.Pack PO 1 packet DAILY YOLANDA Administration Prednisone 20 mg 12/11/20 12:00 12/16/20 09:12 Prednisone 20 Mg Tablet PO 20 mg DAILY YOLANDA Administration Rivaroxaban 15 mg 12/09/20 09:00 12/16/20 09:12 Rivaroxaban 15 Mg Tablet PO 15 mg DAILY YOLANDA Administration Senna 17.2 mg 12/09/20 01:01 12/10/20 20:16 Sennosides 8.6 Mg Tablet PO 17.2 mg BEDTIME PRN Administration Constipation Sodium Chloride 3 ml 12/09/20 08:00 12/16/20 08:42 0.9 % Sodium Chloride Flush 3 Ml Syringe IVFLUSH 3 ml QSHIFT YOLANDA Administration Tacrolimus 2 mg 12/11/20 12:00 12/16/20 09:11 Tacrolimus 1 Mg Capsule PO 2 mg BID YOLANDA Administration <ADONAY Arreguin - Last Filed: 12/16/20 13:29> Time Spent With Patient Time: Total time spent is greater than 50% in coordination of care (as documented) at patient's floor/unit and/or counseling patient: 20 <ADONAY Arreguin - Last Filed: 12/16/20 13:29> Time with patient: 15 - 24 minutes <ADONAY Arreguin - Last Filed: 12/16/20 13:29>
[2020-12-16] MEDS: Furosemide 40 MG TABLET PO (17:06)
[2020-12-16] MEDS: Divalproex Sodium ER 500 MG TAB.ER.24H 1000 MG PO (20:28)
[2020-12-16] MEDS: Metoprolol Tartrate 50 MG TABLET PO (20:29)
[2020-12-17 03:19] VITALS: BP 124/75; PULSE 93; RESP 20; TEMP 36.4; O2SAT 96
[2020-12-17] MEDS: Omeprazole 20 MG CAPSULE.DR PO (05:00)
[2020-12-17 06:00] VITALS: BMI 27.9
[2020-12-17 07:31] VITALS: BP 132/65; PULSE 96
[2020-12-17] MEDS: Magnesium Oxide 400 MG TABLET PO (07:31)
[2020-12-17] MEDS: Metoprolol Tartrate 50 MG TABLET PO (07:31)
[2020-12-17] MEDS: 0.9 % Sodium Chloride Flush 3 ML SYRINGE IVFLUSH (07:31)
[2020-12-17] MEDS: hydrALAZINE HCl 10 MG TABLET PO (07:31)
[2020-12-17 07:32] VITALS: BP 132/65; PULSE 96
[2020-12-17] MEDS: Furosemide 40 MG TABLET PO (07:32)
[2020-12-17] MEDS: ARIPiprazole 30 MG TABLET PO (07:32)
[2020-12-17] MEDS: predniSONE 20 MG TABLET PO (07:32)
[2020-12-17] MEDS: Sodium,Potassium Phosphates POWD.PACK 1 PACKET PO (07:32)
[2020-12-17] MEDS: Isosorbide Dinitrate 5 MG TABLET PO (07:32)
[2020-12-17] MEDS: Rivaroxaban 15 MG TABLET PO (07:33)
[2020-12-17] MEDS: Divalproex Sodium ER 500 MG TAB.ER.24H PO (07:33)
[2020-12-17 08:00] VITALS: BP 140/70; PULSE 93; RESP 20; TEMP 36.3; O2SAT 93
[2020-12-17] MEDS: Tacrolimus 1 MG CAPSULE 2 MG PO (08:04)
[2020-12-17 09:54] LABS: B Type Natriuretic Peptide 572 pg/mL (<100)
[2020-12-17 10:11] LABS: Anion Gap 12 (12-20); Blood Urea Nitrogen 60 mg/dL (9-16); Carbon Dioxide 36 mmol/L (22-29); Chloride 100 mmol/L (96-108); Creatinine Clr Calc Pharmacy 45.2; Estimated Glomerular Filt Rate 37; Glucose Random 136 mg/dL (60-115); Potassium 4.5 mmol/L (3.3-5.1); Sodium 143 mmol/L (135-145)
--- NOTE | 2020-12-17 11:04 | PM.PNCARD ---
Subjective Subjective Date of Service: 12/17/20 <ADONAY Arreguin - Last Filed: 12/17/20 11:22> 12/17/20 <Arturo Rodriguez MD - Last Filed: 12/17/20 12:43> Principal diagnosis: CHF, AF <ADONAY Arreguin - Last Filed: 12/17/20 11:22> Interval history: Cardiology follow up for the above. Seen at 0815. Today he is sitting in chair and reports he is feeling good. Breathing is comfortable. No chest pains, palpitations, lightheadedness. Lower legs and feet swollen. Eating breakfast and states he slept well. <ADONAY Arreguin - Last Filed: 12/17/20 11:22> Review of Systems Review of Systems as above <ADONAY Arreguin - Last Filed: 12/17/20 11:22> Yes all other systems are reviewed and are negative <ADONAY Arreguin - Last Filed: 12/17/20 11:22> Physical Exam Vital Signs: Last Vital Signs Temp 97.4 F 12/17/20 08:00 Pulse 93 12/17/20 08:00 Resp 20 12/17/20 08:00 BP 140/70 H 12/17/20 08:00 Pulse Ox 93 12/17/20 08:00 Body Mass Index 27.9 <ADONAY Arreguin - Last Filed: 12/17/20 11:22> Const General: cooperative, no acute distress, alert and awake <ADONAY Arreguin - Last Filed: 12/17/20 11:22> Orientation/consciousness: patient oriented x3 <ADONAY Arreguin - Last Filed: 12/17/20 11:22> Neck Neck: Yes normal visual inspection and Yes no JVD <ADONAY Arreguin Last Filed: 12/17/20 11:22> Resp Effort & Inspection: normal respiratory effort, able to speak in complete sentences and not labored <ADONAY Arreguin - Last Filed: 12/17/20 11:22> Auscultation: clear to auscultation bilaterally, no crackles, no rales, no rhonchi and no wheezes <Neetu TrejoDANNYC - Last Filed: 12/17/20 11:22> Cardio Palpation: normal PMI <Neetu TrejoDANNYC - Last Filed: 12/17/20 11:22> Rate: regular rate <Neetu TrejoDANNYC - Last Filed: 12/17/20 11:22> Rhythm: abnormal rhythm (irregularly irregular) <Neetu TrejoPATRICIA-C - Last Filed: 12/17/20 11:22> Heart sounds: S1 normal heart sound present and S2 normal heart sound present <Neetu TrejoPATRICIA-C - Last Filed: 12/17/20 11:22> Peripheral pulses: Peripheral pulses 2+ throughout <Neetu TrejoDANNYC - Last Filed: 12/17/20 11:22> GI Inspection: Yes normal to inspection <Neetu TrejoDANNYC - Last Filed: 12/17/20 11:22> Neuro General: patient oriented x3 <Neetu TrejoDANNYC - Last Filed: 12/17/20 11:22> Extrem Other: soft pitting edema to lower legs and pillow top feet, +2 <Neetu TrejoPATRICIA-C - Last Filed: 12/17/20 11:22> Results Labs and Meds Result diagrams: : 12/13/20 09:15 12/17/20 09:18 <Neetu TrejoPATRICIA-C - Last Filed: 12/17/20 11:22> Lab results: Laboratory Results - last 24 hr 12/17/20 12/17/20 09:18 09:18 Sodium 143 Potassium 4.5 Chloride 100 Carbon Dioxide 36 H Anion Gap 12 BUN 60 H Creatinine 1.84 H Estim Creat Clear Calc 45.2 Estimated GFR 37 Random Glucose 136 H Calcium 9.0 B-Natriuretic Peptide 572 H <Neetu TrejoDANNYC - Last Filed: 12/17/20 11:22> Progress Note: A&P Assessment and plan (1) Heart failure with reduced ejection fraction: Status: Acute <Neetu TrejoDANNYC - Last Filed: 12/17/20 11:22> Assessment and Plan: Admit here with sob, edema. [place] [facility] [place]. Last echo 2019 shows EF 50-55%, impaired filling. Initially thought to have acute on chronic diastolic HF only however echo completed this visit shows EF 15-20%, LA severely dilated, mild , Mod increase RVSP. Acute systolic/ acute on chronic diastolic HF. Was diuresed with IV Lasix with neg fluid balance of 6000 cc since admit. Clinically improved however still has soft lower leg and foot edema. On RA with sat 96%. His IV lasix was changed to 40mg po bid yesterday. Cr 1.73 yesterday and up to 1.84 today. Will reduce lasix down to 40mg once daily. Continue Hydralazine and Isordil were added for afterload and preload reduction. Check BMP, BNP in am. Strict I+O monitoring. Close monitoring of electrolyte and kidney function with electrolyte replacement as warranted. Compression stockings to be worn in daytime to help with leg edema. Increase mobility. Will need ischemic eval with Pharm nuclear stress test once discharged. <ADONAY Arreguin - Last Filed: 12/17/20 11:22> Patient seen and examined. Case discussed with Neetu Patient says he is feeling great. He is walking around without much shortness of breath. Still has some leg edema in the lower extremities. Overall diuresed well. Continue current medical therapy. Continue hydralazine Isordil combination. Continue neurohormonal modulation with metoprolol. Switch to Lasix 40 mg once a day given slightly risen creatinine and his usual home dose of Lasix at 20 mg daily. Close follow up with outpatient will be pursued. CHF education needs to be provided. He is advised to take extra diuretics if he has weight gain or increased leg swelling. He understands and agrees. Will require outpatient workup with myocardial perfusion imaging to rule out ischemic etiology. <Arturo Rodriguez MD - Last Filed: 12/17/20 12:43> (2) Cardiomyopathy: Status: Acute <ADONAY Arreguin - Last Filed: 12/17/20 11:22> Assessment and Plan: New finding this admit. Could be tachy mediated with his afib. Etiology not clear at present. Will need outpt ischemic eval. Continue hydralazine, isordil, Metoprolol, lasix. <ADONAY Arreguin - Last Filed: 12/17/20 11:22> (3) Atrial fibrillation: Status: Acute <ADONAY Arreguin - Last Filed: 12/17/20 11:22> Assessment and Plan: Hx PAF. Now persistent. Tele showing Afib rates average 90s. Increase ambulation to assess rates with activity. Continue Metoprolol at 50mg bid. Continue Xarelto at renal dose. Cr clearance 44. Will plan for outpt holter monitor to further eval rate control. <ADONAY Arreguin - Last Filed: 12/17/20 11:22> Atrial fibrillation borderline rate control. Will obtain Holter monitor as outpatient. Continue metoprolol 50 mg b.i.d. currently. May require further rate lowering therapy and/or rhythm control approach. Continue full oral anticoagulation. Will follow the patient as outpatient. <Arturo Rodriguez MD - Last Filed: 12/17/20 12:43> (4) Renal failure, acute on chronic: Status: Acute <ADONAY Arreguin - Last Filed: 12/17/20 11:22> Assessment and Plan: Follows with nephrology <ADONAY Arreguin - Last Filed: 12/17/20 11:22> (5) Renal transplant disorder: Status: Acute <ADONAY Arreguin - Last Filed: 12/17/20 11:22> Fall Risk Details Current Medications: Current Medications Generic Name Dose Route Start Last Admin Trade Name Freq PRN Reason Stop Dose Admin Acetaminophen 650 mg 12/09/20 01:01 12/15/20 04:39 Acetaminophen 325 Mg Tablet PO 650 mg Q6H PRN Administration Pain, Mild (Pain Scale 1-3) Aripiprazole 30 mg 12/09/20 09:00 12/17/20 07:32 Aripiprazole 30 Mg Tablet PO 30 mg DAILY YOLANDA Administration Divalproex Sodium 500 mg 12/09/20 09:00 12/17/20 07:33 Divalproex Sodium Er 500 Mg Tab.Er.24h PO 500 mg DAILY YOLANDA Administration Divalproex Sodium 1,000 mg 12/09/20 21:00 12/16/20 20:28 Divalproex Sodium Er 500 Mg Tab.Er.24h PO 1,000 mg BEDTIME YOLANDA Administration Furosemide 40 mg 12/16/20 18:00 12/17/20 07:32 Furosemide 40 Mg Tablet PO 40 mg BID@0900,1800 [facility] Administration Protocol Hydralazine HCl 10 mg 12/15/20 12:00 12/17/20 07:31 Hydralazine Hcl 10 Mg Tablet PO 10 mg BID YOLANDA Administration Protocol Isosorbide Dinitrate 5 mg 12/15/20 12:00 12/17/20 07:32 Isosorbide Dinitrate 5 Mg Tablet PO 5 mg BID YOLANDA Administration Protocol Magnesium Oxide 400 mg 12/15/20 17:30 12/17/20 07:31 Magnesium Oxide 400 Mg Tablet PO 400 mg BIDPC YOLANDA Administration Metoprolol Tartrate 50 mg 12/16/20 21:00 12/17/20 07:31 Metoprolol Tartrate 50 Mg Tablet PO 50 mg BID YOLANDA Administration Protocol Omeprazole 20 mg 12/09/20 06:30 12/17/20 05:00 Omeprazole 20 Mg Capsule. PO 20 mg DAILY@0630 [facility] Administration Pharmacy Consult 1 each 12/08/20 21:28 Consult Rx Perform Med Rec MISCELLANE ONCE PRN Consult order Potassium Phos/Sodium Phos 1 packet 12/09/20 09:00 12/17/20 07:32 Sodium,Potassium Phosphates Powd.Pack PO 1 packet DAILY YOLANDA Administration Prednisone 20 mg 12/11/20 12:00 12/17/20 07:32 Prednisone 20 Mg Tablet PO 20 mg DAILY YOLANDA Administration Rivaroxaban 15 mg 12/09/20 09:00 12/17/20 07:33 Rivaroxaban 15 Mg Tablet PO 15 mg DAILY YOLANDA Administration Senna 17.2 mg 12/09/20 01:01 12/10/20 20:16 Sennosides 8.6 Mg Tablet PO 17.2 mg BEDTIME PRN Administration Constipation Sodium Chloride 3 ml 12/09/20 08:00 12/17/20 07:31 0.9 % Sodium Chloride Flush 3 Ml Syringe IVFLUSH 3 ml QSHIFT [facility] Administration Tacrolimus 2 mg 12/11/20 12:00 12/17/20 08:04 Tacrolimus 1 Mg Capsule PO 2 mg BID [facility] Administration <ADONAY Arreguin - Last Filed: 12/17/20 11:22> Time Spent With Patient Time: Total time spent is greater than 50% in coordination of care (as documented) at patient's floor/unit and/or counseling patient: 22 <ADONAY Arreguin - Last Filed: 12/17/20 11:22> Time with patient: 15 - 24 minutes <ADONAY Arreguin - Last Filed: 12/17/20 11:22>
[2020-12-17 11:37] VITALS: BP 115/75; PULSE 88; RESP 18; TEMP 36.8; O2SAT 96
--- NOTE | 2020-12-17 11:40 | P.DS_ITS ---
DS: Providers Provider Date of Service: 12/20/20 Date of admission: 12/09/20 01:01 Primary care physician: Vicenta Sumner MD Consults: 12/09/20 00:58 Consult to Cardiology Routine Consulting Provider: South Jones Reason for consultation: CHF Consult to Nephrology Routine Consulting Provider: Cornell Holly Reason for consultation: ANA on CKD;hx renal transplant DS: Diagnosis Discharge Diagnosis (1) Heart failure with reduced ejection fraction: Status: Acute (2) Cardiomyopathy: Status: Acute (3) Atrial fibrillation: Status: Acute (4) Renal failure, acute on chronic: Status: Acute (5) Renal transplant disorder: Status: Acute DS: Medications Discharge Medications Home Medications: Home Medications Medication Instructions Recorded Confirmed aripiprazole 30 mg tablet 30 mg PO DAILY 08/13/20 12/08/20 omeprazole 20 mg capsule,delayed 20 mg PO DAILY@0630 08/13/20 12/08/20 release tacrolimus 1 mg capsule, 2 mg PO Q12H 08/13/20 12/08/20 immediate-release albuterol sulfate 90 mcg/actuation 2 puff INHALATION Q6H PRN 09/29/20 12/08/20 aerosol inhaler prednisone 10 mg tablet 10 mg PO DIRECTED 10/29/20 12/08/20 Phospha 250 Neutral 1 tab PO DAILY 12/08/20 12/08/20 divalproex [Depakote ER] 1,000 mg PO BEDTIME 12/08/20 12/08/20 divalproex [Depakote ER] 500 mg PO DAILY 12/08/20 12/08/20 Previous Rx's Medication Instructions Recorded acetaminophen 650 mg 650 mg PO Q12H PRN 15 Days #30 tab 09/29/20 tablet,extended release rivaroxaban 15 mg tablet 15 mg PO DAILY #90 tab 10/29/20 furosemide 40 mg PO DAILY #30 tab 12/17/20 hydralazine 10 mg PO BID #120 tab 12/17/20 isosorbide dinitrate 5 mg PO BID #120 tab 12/17/20 magnesium oxide 400 mg PO BIDPC #60 tab 12/17/20 metoprolol tartrate 50 mg PO BID #60 tab 12/17/20 DS: Summary Hospital Course Hospital Course: History of presenting illness 60-year-old male with a past medical history of hypertension, hyperlipidemia, CHF, history of heart block status post pacemaker, chronic kidney disease, history of renal transplant on tacrolimus and prednisone, history of AFib on Xarelto and diltiazem, osteoarthritis, recent admission to the [facility] for pneumonia finished antibiotic course presented to the hospital today with a chief complaint of shortness of breath. Mentioned that he has been having shortness of breath over the past few days which has been gradually worsening. Denies any chest pain lightheadedness or dizziness. Denies any fever chills cough. Denies using any home oxygen. Review of all other systems is negative except mentioned above ER course: Per ER team patient was noted to be saturating 92% on room air. Placed on supplemental oxygen. Noted trace pedal edema. EKG was nonischemic., given a dose of furosemide, diltiazem. On last patient noted to have elevated creatinine. Admitted for further management. Past medical history Asthma Bipolar disorder Cellulitis of left foot Cellulitis of left lower extremity Cocaine use DVT (deep venous thrombosis) Essential hypertension Gout Hip osteoarthritis History of seizures Obesity Pacemaker PAF (paroxysmal atrial fibrillation) Polysubstance abuse Renal transplant recipient Second degree heart block Subdural hematoma Thrombocytopenia Tobacco abuse Unilateral primary osteoarthritis, left knee Urinary bladder cancer Hospital course 60-year-old male with a past medical history of hypertension, hyperlipidemia, CHF, AFib, history of heart block status post pacemaker, history of renal transplant, recent history of pneumonia presented to the hospital with a chief complaint of shortness of breath. Acute on chronic systolic heart failure, with significantly low EF 15-20%, patient treated with IV Lasix with significant improvement in symptoms has been 5 L negative feeling significantly better therefore being discharged home on Lasix 40 mg daily, his electrolytes are stable patient was followed closely by Cardiology patient's medication has been adjusted and he has been started on hydralazine and isosorbide for afterload and preload reduction, patient will have follow-up with cardiology as outpatient to undergo nuclear stress test. Patient also noted to have ventricular tachycardia Cardiology will assess for need for ICD Kidney disease likely due to cardiorenal syndrome, creatinine improved to baseline with diuretics patient is status post renal transplant recommend to continue Tacrolimus and prednisone Recent history of pneumonia, patient has finish 2 weeks of antibiotic, recommend repeat chest x-ray in 4 weeks to follow-up clearance of abnormal chest x-ray History of AFib: Patient is being discharged home on metoprolol and Xarelto renally dose History of Subtance abuse,including cocaine, strongly advised to abstain from illicit drug use . Time Spent with Patient Time attestation: Total time spent providing and/or coordinating discharge services: Discharge coordination time: Greater than 30 minutes Physical Exam Vital Signs: Vital Signs: Last Vital Signs Temp 97.4 F 12/17/20 08:00 Pulse 93 12/17/20 08:00 Resp 20 12/17/20 08:00 BP 140/70 H 12/17/20 08:00 Pulse Ox 93 12/17/20 08:00 Body Mass Index 27.9 General patient resting comfortably in no acute distress, talking in full sentences. Neck no JVD. CVS irregular rate rhythm, Respiratory lungs clear to auscultation, no respiratory distress, no wheeze, no rhonchi. Gastrointestinal abdomen soft, nontender, bowel sounds audible, no guarding , no rigidity. Extremities pitting edema Neuro speech clear, oriented x3. Skin no rash DS: Data Data Completed and Pending Labs on day of discharge: Laboratory Results - last 24 hr 12/17/20 12/17/20 09:18 09:18 Sodium 143 Potassium 4.5 Chloride 100 Carbon Dioxide 36 H Anion Gap 12 BUN 60 H Creatinine 1.84 H Estim Creat Clear Calc 45.2 Estimated GFR 37 Random Glucose 136 H Calcium 9.0 B-Natriuretic Peptide 572 H Discharge Plan Discharge Patient Disposition: Home Health Service [facility]Other] [facility] [Other] Po,Vicenta Shelton MD [Primary Care Provider] - 1 Week (Please call and schedule a follow up appointment.) Discharge Medications: New furosemide 40 mg Tablet 40 mg PO DAILY Qty: 30 RF: 0 hydralazine 10 mg Tablet 10 mg PO BID Qty: 120 RF: 0 magnesium oxide 400 mg (241.3 mg magnesium) Tablet 400 mg PO BIDPC Qty: 60 RF: 0 metoprolol tartrate 50 mg Tablet 50 mg PO BID Qty: 60 RF: 0 isosorbide dinitrate 5 mg Tablet 5 mg PO BID Qty: 120 RF: 0 Continued divalproex [Depakote ER] 500 mg Tablet Extended Release 24 Hr 500 mg PO DAILY RF: 0 divalproex [Depakote ER] 500 mg Tablet Extended Release 24 Hr 1,000 mg PO BEDTIME RF: 0 Phospha 250 Neutral 250 mg Tablet 1 tab PO DAILY RF: 0 omeprazole 20 mg capsule,delayed release(DR/EC) 20 mg PO DAILY@0630 RF: 0 aripiprazole [Abilify] 30 mg tablet 30 mg PO DAILY RF: 0 tacrolimus [Prograf] 1 mg capsule 2 mg PO Q12H RF: 0 albuterol sulfate 90 mcg/actuation HFA aerosol inhaler 2 puff inhalation Q6H PRN (Reason: Respiratory Distress) RF: 0 acetaminophen [Tylenol Arthritis Pain] 650 mg tablet extended release 650 mg PO Q12H PRN (Reason: pain) 15 Days Qty: 30 RF: 0 prednisone 10 mg tablet 10 mg PO DIRECTED RF: 0 Xarelto 15 mg tablet 15 mg PO DAILY Qty: 90 RF: 4 Discontinued diltiazem HCl 120 mg tablet extended release 24 hr 120 mg PO DAILY Qty: 90 RF: 2 furosemide 20 mg tablet 20 mg PO DAILY Qty: 28 RF: 0 Discharge Orders: Discharge Order (Routine); Ordered 12/17/20 Ordered By: Ania Wiley Diet: low fat, low cholesterol and low salt diet Activity on Discharge: As tolerated Stand Alone Forms: Patient Portal Discharge page Care Plan Goals: as above. Health Concerns: acute on ch heart failure Plan of Treatment: outpatient follow up with cardiology for holter monitor Assessment: see discharge summary. Discharge Date/Time: 12/17/20 14:15
--- NOTE | 2020-12-17 12:25 | MHC.CM.PN ---
PATIENT IS RETURNING HOME TODAY WITH RESUMPTION OF HIS [facility]. PHYSICAL THERAPY HAS BEEN ADDED TO HIS SERVICES. REQUEST SENT TO PROVIDER FOR AN RX FOR FWW TO BE SENT TO PATIENTY'S PREFERRED PHARMACY. MESSAGE LEFT FOR PATIENT'S [facility] CONTACT ANA @ [phone] WITH PLAN. 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
--- NOTE | 2020-12-17 12:55 | PM.PNNEP ---
Subjective Subjective Date of Service: 12/17/20 Principal diagnosis: CHF, AF Interval history: Feels better, Physical Exam Vital Signs: Vital Signs: Last Vital Signs Temp 98.2 F 12/17/20 11:37 Pulse 88 12/17/20 11:37 Resp 18 12/17/20 11:37 BP 115/75 12/17/20 11:37 Pulse Ox 96 12/17/20 11:37 Body Mass Index 27.9 Const: General: cooperative Orientation/consciousness: patient oriented x3 Eyes: General: appearance normal, both eyes and all related structures Neck: Neck: Yes supple Resp: Effort & Inspection: normal respiratory effort Cardio: Palpation: no palpable S3 and no palpable S4 Rate: regular rate GI: Inspection: Yes obesity Palpation (GI): Soft to palpation Skin: Rashes: no rashes Neuro: General: patient oriented x3 Motor exam (neuro): No Asterixis during motor activity present Objective Data Labs CBC & Chem 7: 12/13/20 09:15 12/17/20 09:18 Labs: Laboratory Results - last 24 hr 12/17/20 12/17/20 09:18 09:18 Sodium 143 Potassium 4.5 Chloride 100 Carbon Dioxide 36 H Anion Gap 12 BUN 60 H Creatinine 1.84 H Estim Creat Clear Calc 45.2 Estimated GFR 37 Random Glucose 136 H Calcium 9.0 B-Natriuretic Peptide 572 H Microbiology Microbiology Results: Microbiology 12/08/20 20:23 Blood - Venous Blood Culture - Final No growth after 5 days. 12/08/20 20:23 Blood - Venous Blood Culture - Final No growth after 5 days. Assessment & Plan Assessment and plan (1) Renal transplant disorder: Status: Acute Assessment and Plan: 1) Renal transplant disorder: Problem details: ANA due to tubular dysfunction Has transplant glomerulopathy with proteinuria C/W diuresis; urine cocaine positive Shall continue home dose of Tacrolimus Check tacro level CAn DC home with Lasix 40 mg BID HOLD ACEi ; Avery pena as out patient once CR stabilizes Low sodium diet Renal functions stable Shall closely follow up Time Spent With Patient Time: Total time spent is greater than 50% in coordination of care (as documented) at patient's floor/unit and/or counseling patient:
== END 2020-12-17 14:15 | disposition home health service (06) | DRG 466 ==
LOC: HO.ED 23:31 → HO.EDOVER 12-09 01:50 → HO.S3 12-09 07:30
PROVIDERS: Internal Medicine; Internal Medicine Nephrology; Nurse Practitioner Family; Admitting Provider Hospitalist; Emergency Provider Internal Medicine; PCP Internal Medicine; Visit Provider Hospitalist
DX: T86.19 Other complication of kidney transplant (principal); N17.0 Acute kidney failure with tubular necrosis; I50.23 Acute on chronic systolic (congestive) heart failure; I42.9 Cardiomyopathy, unspecified; I48.11 Longstanding persistent atrial fibrillation; E83.42 Hypomagnesemia; N18.32 Chronic kidney disease, stage 3b; I13.0 Hypertensive heart and chronic kidney disease with heart failure and stage 1 through stage 4 chronic kidney disease, or unspecified chronic kidney disease; Z94.0 Kidney transplant status; Z79.01 Long term (current) use of anticoagulants; E78.5 Hyperlipidemia, unspecified; F17.210 Nicotine dependence, cigarettes, uncomplicated; F14.10 Cocaine abuse, uncomplicated; I25.10 Atherosclerotic heart disease of native coronary artery without angina pectoris; Z20.822 Contact with and (suspected) exposure to COVID-19; Z71.6 Tobacco abuse counseling; Z95.0 Presence of cardiac pacemaker; Z79.52 Long term (current) use of systemic steroids; Z79.899 Other long term (current) drug therapy
CPT/HCPCS: 36415; 71045; 80048; 80197; 80307; 81001; 83605; 83735; 83880; 84156; 84484; 85025; 85027; 85610; 85730; 86160; 87040; 87635; 93005; 93306; 96374; 96375; 97162; 99285; J1940; J3475; Q9957

== ENCOUNTER → 2020-12-22 13:38 | Outpatient (BNVA) | payer OTHER, SELFPAY | PROVIDERS: PCP Internal Medicine; Visit Provider Internal Medicine | DX: I48.0 Paroxysmal atrial fibrillation (principal); I48.91 Unspecified atrial fibrillation; I48.92 Unspecified atrial flutter; I50.21 Acute systolic (congestive) heart failure; I10 Essential (primary) hypertension; F14.90 Cocaine use, unspecified, uncomplicated; Z98.890 Other specified postprocedural states | CPT/HCPCS: 93005; 99212 ==

== ENCOUNTER → 2020-12-25 09:59 | Day surgery (SDC) | payer OTHER, SELFPAY ==
--- NOTE | 2020-12-23 12:53 | P.CONAN_ITS ---
HPI - Anesthesia Eval Consult details Narrative: 60yo M for Cardioversion Xarelto Cocain use - used prior to 12/09/20 [facility] admit for acute CHF/afib Cx'd 12/25/20 d/t pos for Cocaine PMFSH Active Problems Active Problems: All Active Problems (Updated 12/22/20 @ 16:20 by Dharmesh Pope MD) Acute systolic (congestive) heart failure (Acute) Atrial fibrillation with rapid ventricular response (Acute) Heart failure with reduced ejection fraction (Acute) Cardiomyopathy (Acute) Renal transplant disorder (Acute) Renal failure, acute on chronic (Acute) Atrial fibrillation (Acute) Congestive heart failure (Acute) Knee pain, left (Acute) PAF (paroxysmal atrial fibrillation) (Acute) Cocaine use (Acute) Essential hypertension (Acute) Status post cardiac catheterization (Acute) Cellulitis of left lower extremity (Acute) Unilateral primary osteoarthritis, left knee (Acute) DVT (deep venous thrombosis) (Acute) Cellulitis of left foot (Acute) Pacemaker (Acute) Renal transplant recipient (Acute) Tobacco abuse (Acute) Obesity (Acute) Polysubstance abuse (Acute) Bipolar disorder (Acute) Past Medical History Medical History Asthma Atrial fibrillation Bipolar disorder Cellulitis of left foot Cellulitis of left lower extremity Cocaine use Congestive heart failure DVT (deep venous thrombosis) Essential hypertension Gout Heart failure with reduced ejection fraction Hip osteoarthritis History of seizures Obesity Pacemaker PAF (paroxysmal atrial fibrillation) Polysubstance abuse Renal transplant recipient Second degree heart block Subdural hematoma Thrombocytopenia Tobacco abuse Unilateral primary osteoarthritis, left knee Urinary bladder cancer Family History Family History Father Prostate cancer Mother No problems noted. Brother Cancer Surgical History Surgical History Abscess of arm, left H/O cardiac radiofrequency ablation History of cardiac catheterization History of removal of cyst History of removal of cyst Kidney replaced by transplant Social History Social History Household Members: None Housing: Apartment Alcohol intake: never Smoking Status: Former smoker Tobacco Type: Cigarette Cigarettes Per Day: 1 Substance Use Type: Crack/Cocaine Advance Directives: Yes Advance Directives Information Provided: No Advance Directives on File: No Advance Directives Date on File: 12/25/20 service: No Current occupational status: retired Meds Allergies Allergy/AdvReac Type Severity Reaction Status Date / Time diltiazem [From Cardizem] Allergy Unknown Dizziness Verified 11/05/20 12:06 indomethacin [Indocin] Allergy Unknown Unknown Verified 11/05/20 12:06 Home Medications Medication Instructions Recorded Confirmed Last Taken Type aripiprazole 30 mg tablet 30 mg PO DAILY 08/13/20 12/25/20 12/24/20 History omeprazole 20 mg capsule,delayed 20 mg PO DAILY 08/13/20 12/25/20 12/24/20 History release tacrolimus 1 mg capsule, 2 mg PO BID 08/13/20 12/25/20 12/24/20 History immediate-release albuterol sulfate 90 mcg/actuation 2 puff INHALATION Q6H PRN 09/29/20 12/25/20 Unknown History aerosol inhaler Phospha 250 Neutral 1 tab PO DAILY 12/08/20 12/25/20 12/24/20 History divalproex [Depakote ER] 1,000 mg PO BEDTIME 12/08/20 12/25/20 12/24/20 History divalproex [Depakote ER] 500 mg PO DAILY 12/08/20 12/25/20 12/24/20 History Exam Exam Date and Time: December 23, 2020 1253 Pertinent Lab Results Pertinent Lab Results: Laboratory Tests 12/13/20 12/17/20 09:15 09:18 WBC 7.6 Hgb 12.3 L Hct 39.4 L Plt Count 125 L Sodium 143 Potassium 4.5 Chloride 100 Carbon Dioxide 36 H BUN 60 H Creatinine 1.84 H Narrative Narrative: EKG 12/2020 Vent. Rate : 107 BPM Atrial Rate : 108 BPM P-R Int : 000 ms QRS Dur : 136 ms QT Int : 364 ms P-R-T Axes : 000 -64 110 degrees QTc Int : 485 ms Atrial fibrillation with rapid ventricular response Right bundle branch block Left anterior fascicular block Bifascicular block Moderate voltage criteria for LVH, may be normal variant T wave abnormality, consider lateral ischemia Abnormal ECG When compared with ECG of 08-DEC-2020 18:33, No significant change was found ECHO 11/2020 Conclusions: - The left ventricular systolic function is severely decreased. - Normal right ventricular cavity size and systolic function. - The left atrium is severely dilated. - There is mild aortic valve stenosis. - Moderately elevated right atrial pressure. There is no evidence of pulmonary hypertension. Assessment and Plan Assessment Anesthesia Assessment: Chart Reviewed
[2020-12-24 11:48] VITALS: BMI 28.0
[2020-12-25 10:16] VITALS: BP 167/98; PULSE 108; RESP 18; TEMP 36.7; O2SAT 97
--- NOTE | 2020-12-25 10:18 | MHC.SHP ---
Pre-Procedural Eval Section B Chief Complaint: a-fib Allergies: Allergies Allergy/AdvReac Type Severity Reaction Status Date / Time diltiazem [From Cardizem] Allergy Unknown Dizziness Verified 11/05/20 12:06 indomethacin [Indocin] Allergy Unknown Unknown Verified 11/05/20 12:06 Plan I have reviewed the history and physical and performed a pertinent physical examination on my patient. No changes have occurred unless specified.
[2020-12-25] MEDS: Amiodarone HCL 200 MG TABLET 400 MG PO (10:33)
[2020-12-25] MEDS: Rivaroxaban 15 MG TABLET PO (10:33)
[2020-12-25] MEDS: Lactated Ringers 1,000 ML 20 ML IVCONT (10:38)
--- NOTE | 2020-12-25 11:03 | PC.NURSE ---
PATIENT STATES HE TOOK CRACK/COCAINE [address] MCLEOD AWARE AND LOOKED AT AREA IN LEFT ARMPIT. DR. VILLA ALSO AWARE AND LOOKED AT AREA IN LEFT ARMPIT. DR. VILLA STATED IT WAS NOT SHINGLES.
[2020-12-25 11:25] LABS: Amphetamine Screen Urine Not Detected (Not Detect); Barbiturates, Urine Not Detected (Not Detect); Benzodiazepines Screen Urine Not Detected (Not Detect); Cannabinoid Screen Urine Not Detected (Not Detect); Cocaine Screen Urine POSITIVE (Not Detect); Opiate Screen Urine Not Detected (Not Detect); Phencyclidine Screen Urine Not Detected (Not Detect)
--- NOTE | 2020-12-25 13:14 | PC.NURSE ---
CARDIOVERSION IS NOT GOING TO BE COMPLETED TODAY PATIENT'S URINE TOXOLOGY TESTED POSITIVE FOR COCAINE.
== END ==
PROVIDERS: Nurse Practitioner; PCP Internal Medicine; Visit Provider Internal Medicine
DX: I48.0 Paroxysmal atrial fibrillation (principal); Z79.01 Long term (current) use of anticoagulants
CPT/HCPCS: 80307

== ENCOUNTER 2020-12-25 13:48 | Inpatient (IN) | payer OTHER, SELFPAY ==
[2020-12-25] VITALS (7 sets, daily range): BP systolic 135–181; BP diastolic 95–129; PULSE 48–139; RESP 17–20; TEMP 36.5–36.6; O2SAT 94–97; BMI 33.4; BMI 29.2
--- NOTE | 2020-12-25 | ECG_ITS ---
Test Reason : chest pain Blood Pressure : / mmHG Vent. Rate : 103 BPM Atrial Rate : 147 BPM P-R Int : 000 ms QRS Dur : 152 ms QT Int : 354 ms P-R-T Axes : 000 -78 085 degrees QTc Int : 463 ms Atrial fibrillation with rapid ventricular response with premature ventricular or aberrantly conducted complexes Right bundle branch block Left anterior fascicular block Bifascicular block Abnormal ECG When compared to the previous EKG of No significant changes seen Referred By: Denny Marie Electronically Signed By:South Jones
--- NOTE | ~2020-12-25 | XR_ITS ---
EXAMINATION: XR CHEST CLINICAL INFORMATION: SOB, recent pneumonia. COMPARISON: Chest 12/08/2020 TECHNIQUE: Frontal view of the chest was obtained. FINDINGS: The lungs are well-expanded without acute pneumonic consolidation. There is increased bilateral parahilar opacities unchanged to previous study. These may represent interstitial pneumonitis or edema. No pleural effusion seen. The heart size is normal. There are dual pacer electrodes in right atrium and right ventricle. No gross bony abnormality seen XR/XR chest 1V IMPRESSION: Increased bilateral parahilar opacities likely interstitial edema or interstitial pneumonitis. Similar findings were seen on the previous study 12/08/2020
--- NOTE | 2020-12-25 14:46 | ECG_ITS ---
Test Reason : MEDICAL Blood Pressure : / mmHG Vent. Rate : 105 BPM Atrial Rate : 089 BPM P-R Int : 000 ms QRS Dur : 130 ms QT Int : 356 ms P-R-T Axes : 000 -66 113 degrees QTc Int : 470 ms Atrial fibrillation with rapid ventricular response with premature ventricular or aberrantly conducted complexes Right bundle branch block Left anterior fascicular block Bifascicular block T wave abnormality, consider lateral ischemia Abnormal ECG When compared with ECG of 11-DEC-2020 15:47, No significant change was found Referred By: Laisha Flores Electronically Signed By:South Jones
--- NOTE | 2020-12-25 15:51 | ED.GENADULT ---
HPI - General Adult General Chief complaint: General Medical Stated complaint: shingles? Time Seen by Provider: 12/25/20 14:45 Source: patient Mode of arrival: ambulatory Limitations: no limitations History of Present Illness HPI narrative: 60 y/o male with history of afib on Xarelto and Lopressor, HFrEF (EF 15-20%), cocaine use, paranoid schizophrenia, s/p kidney transplant in 2006, HTN, active smoker, who had recent PNA and recent admission here for fluid overload and cardiorenal syndrome presents to the ED from short stay surgery for evaluation of painful left axillary rash. He presented there for cardioversion however this was not performed due to his urine toxiciology being positive for cocaine. He reports not smoking cocaine or cigarettes for almost 2 weeks because he has been too SOB. He smoked marijuana last but denies that it had cocaine in it. He reports compliance with his medications including his diuretics, anticoaglaution and metoprolol. He did not take them today because he was having the procedure done. He reports he has been more SOB for the last 1-2 weeks, worse with ambulation and laying flat. He has increased swelling in his legs. He completed antibiotics for pneumonia and has no residual cough. No fevers. He reports a painful rash to his left underarm that started 3 days ago. He states it is worse with palpation and her. He thinks he has shingles. complaint: SOB, rash Onset (ago): day(s) Location: chest, left and upper extremity Radiation: non-radiation Severity: moderate Quality: burning Pain Consistency: intermittent Relieving factors: rest Associated symptoms: rash and shortness of breath Treatments prior to arrival: none Related Data Home Medications Medication Instructions Recorded Confirmed aripiprazole 30 mg tablet 30 mg PO DAILY 08/13/20 12/25/20 omeprazole 20 mg capsule,delayed 20 mg PO DAILY 08/13/20 12/25/20 release tacrolimus 1 mg capsule, 2 mg PO BID 08/13/20 12/25/20 immediate-release albuterol sulfate 90 mcg/actuation 2 puff INHALATION Q6H PRN 09/29/20 12/25/20 aerosol inhaler Phospha 250 Neutral 1 tab PO DAILY 12/08/20 12/25/20 divalproex [Depakote ER] 1,000 mg PO BEDTIME 12/08/20 12/25/20 divalproex [Depakote ER] 500 mg PO DAILY 12/08/20 12/25/20 diltiazem HCl [Cardizem LA] 1 tab PO DAILY 12/25/20 12/25/20 Previous Rx's Medication Instructions Recorded acetaminophen 650 mg 650 mg PO Q12H PRN 15 Days #30 tab 09/29/20 tablet,extended release rivaroxaban 15 mg tablet 15 mg PO DAILY #90 tab 10/29/20 furosemide 40 mg PO DAILY #30 tab 12/17/20 hydralazine 10 mg PO BID #120 tab 12/17/20 isosorbide dinitrate 5 mg PO BID #120 tab 12/17/20 magnesium oxide 400 mg PO BIDPC #60 tab 12/17/20 metoprolol tartrate 50 mg PO BID #60 tab 12/17/20 Allergies Allergy/AdvReac Type Severity Reaction Status Date / Time diltiazem [From Cardizem] Allergy Unknown Dizziness Verified 11/05/20 12:06 indomethacin [Indocin] Allergy Unknown Unknown Verified 11/05/20 12:06 Review of Systems Review of Systems: Constitutional: No Fever, No Chills ENT/Mouth: No sore throat, No Rhinorrhea, No Swallowing Difficulty Eyes: No Eye Pain, No Swelling, No Redness Cardiovascular: No Chest Pain, + SOB, + Orthopnea, + Edema Respiratory: No Cough, No Sputum, No Wheezing, No dyspnea Gastrointestinal: No Nausea, No Vomiting, No Diarrhea, No abdominal Pain Genitourinary: No Dysuria, No Urinary Frequency, No Hematuria Musculoskeletal: No joint pain, No Myalgias Skin: + Skin Lesions, No rash Neuro: No Weakness, No Numbness, No Dizziness, No Headache Psych: No Anxiety/Panic, No Depression Heme/Lymph: No Bruising, No Lymphadenopathy Endocrine: No Polyuria, No Polydipsia PMFSH Past Medical History Attestation statement: The following information was validated with the patient. Medical History Asthma Atrial fibrillation Bipolar disorder Cellulitis of left foot Cellulitis of left lower extremity Cocaine use Congestive heart failure DVT (deep venous thrombosis) Essential hypertension Gout Heart failure with reduced ejection fraction Hip osteoarthritis History of seizures Obesity Pacemaker PAF (paroxysmal atrial fibrillation) Polysubstance abuse Renal transplant recipient Second degree heart block Subdural hematoma Thrombocytopenia Tobacco abuse Unilateral primary osteoarthritis, left knee Urinary bladder cancer Surgical History Abscess of arm, left H/O cardiac radiofrequency ablation History of cardiac catheterization History of removal of cyst History of removal of cyst Kidney replaced by transplant Family History Family History Father Prostate cancer Mother No problems noted. Brother Cancer Social History Social History Household Members: None Housing: Apartment Alcohol intake: never Smoking Status: Current every day smoker Cigarettes Per Day: 1 Substance Use Type: Crack/Cocaine Advance Directives: Yes Advance Directives Information Provided: No Advance Directives on File: No service: No Current occupational status: retired Physical Exam Vital Signs: Vital Signs: Last Vital Signs Temp 97.8 F 12/25/20 15:56 Pulse 86 12/25/20 15:56 Resp 20 12/25/20 15:56 BP 174/112 H 12/25/20 15:56 Pulse Ox 95 12/25/20 15:56 Body Mass Index 33.4 Appearance: Alert. Oriented X3. No acute distress. Eyes: Pupils equal, round and reactive to light. ENT: Pharynx normal. Neck: Normal inspection. Neck supple. CVS: irregularly irregular, tachycardic. Pulses normal. Respiratory: Mild respiratory distress. Breath sounds normal with increased RR. Abdomen: Soft and non-tender. +BS x4 Skin: Skin warm and dry. Normal skin color. Normal skin turgor. No rashes. Extremities: 3+ LE edema bilaterally. left axillary area with multiple tender boils with erythema, warmth and fluctance, largest is 3cm. pus able to be expressed to most superior boil. Neuro: Oriented X 3. No motor deficit. No sensory deficit. Course Course Course Narrative: 60 y/o male with multiple medical problems including HFrEF, afib who presents with SOB x2 weeks and left axillary rash x2 days. Exam is consistent with axillary abscesses, multiple small ones that are amenable to drainage. He is tachycardic and SOB on arrival, noted to be in rapid afib. His HR and WOB improved with rest, no hypoxia. Utox today +cocaine so hesitant to use metoprolol even though this is a home medication, he reports last taking it yesterday. Unable to use cardizem given poor EF and noted allergy. Digoxin not ideal given renal failure. Amiodarone not preferred with history of lung disease. Will hold off on rate controlling medications for now given improvement with rest. BP 180/120 on arrival, no headache or chest pain. Needs med reviewed since he did not take his home meds today. Reevaluation(s) Reevaluation #1: Lab workup showing CKD at baseline. No leukocytosis. NO need for IV antibiotics for axillary abscesses. CXR with evidence of volume overload - Increased bilateral parahilar opacities likely interstitial edema or interstitial pneumonitis. BNP 1600 from prior 500's last week. Will give IV lasix and plan for admission. PO hydralazine ordered for BP 170s systolic. HR 104. Dr. Jeffrey TT for admission who accepts. Procedures Abscess I/D Site: upper extremity Side (if applicable): left Local Anesthetic: lidocaine 2% Amount of anesthesia used (mL): 3 Technique: incised with blade Sent for culture/gram staining?: No Irrigation: Yes Packing used?: [email or web address] Complications: bleeding Medical Decision Making Lab Data Result diagrams: 12/25/20 16:04 12/25/20 16:04 Labs: Lab Results 12/25/20 12/25/20 12/25/20 Range/Units 15:56 16:04 16:04 WBC 9.9 (4.8-10.8) X10*3/uL RBC 4.19 L (4.60-5.80) X10*6/uL Hgb 12.2 L (14.0-18.0) g/dl Hct 40.1 L (42-52) % MCV 95.7 (80-98) fL MCH 29.1 (27.0-33.0) pg MCHC 30.4 L (31.0-36.0) g/dl RDW 15.6 (11.0-16.0) % Plt Count 107 L (160-400) X10*3/uL MPV 11.4 (9.4-12.4) fL Immature Gran % (Auto) 1.3 H (0.0-0.4) % Neut % (Auto) 77.2 H (45-73) % Lymph % (Auto) 11.7 L (20-40) % [place] % (Auto) 9.1 (2-11) % Eos % (Auto) 0.5 (0-4) % Baso % (Auto) 0.2 (0-2) % Lymph # (Auto) 1.2 (1.2-4.9) X10*3/uL [place] # (Auto) 0.9 (0.1-1.2) X10*3/uL Eos # (Auto) 0.1 (0.0-0.4) X10*3/uL Baso # (Auto) 0.0 (0.0-0.2) X10*3/uL Abs Immat Gran (auto) 0.13 H (0.00-0.03) X10*3/uL Absolute Neuts (auto) 7.6 (2.0-8.3) X10*3/uL Absolute Nucleated RBC 0.000 (0.0-0.012) X10*3/uL Nucleated RBC % (auto) 0.0 (0.0-0.2) /100WBC PT 19.3 H D (10.8-13.0) SEC INR 1.6 H (0.9-1.1) APTT 40.0 H D (24.1-38.0) SEC Sodium (135-145) mmol/L Potassium (3.3-5.1) mmol/L Chloride (96-108) mmol/L Carbon Dioxide (22-29) mmol/L Anion Gap (12-20) BUN (9-16) mg/dL Creatinine (0.5-1.4) mg/dL Estim Creat Clear Calc Estimated GFR Random Glucose (60-115) mg/dL Lactic Acid (0.5-2.0) mmol/L Calcium (8.4-10.2) mg/dL Magnesium (1.6-2.6) mg/dL Total Bilirubin (0.0-1.0) mg/dL Direct Bilirubin (0.0-0.5) mg/dL AST (5-37) U/L ALT (0-40) U/L Alkaline Phosphatase (39-117) U/L Troponin I High Sens (<3.5-35.0) ng/L B-Natriuretic Peptide (<100) pg/mL Total Protein (6.5-8.0) g/dL Albumin (3.5-5.0) g/dL Procalcitonin ng/mL Ethyl Alcohol mg/dL Coronavirus (PCR) NEGATIVE (Negative) Influenza Type A (PCR) NEGATIVE (Negative) Influenza Type B (PCR) NEGATIVE (Negative) RSV RNA Qual (PCR) NEGATIVE (Negative) 12/25/20 12/25/20 12/25/20 Range/Units 16:04 16:04 16:04 WBC (4.8-10.8) X10*3/uL RBC (4.60-5.80) X10*6/uL Hgb (14.0-18.0) g/dl Hct (42-52) % MCV (80-98) fL MCH (27.0-33.0) pg MCHC (31.0-36.0) g/dl RDW (11.0-16.0) % Plt Count (160-400) X10*3/uL MPV (9.4-12.4) fL Immature Gran % (Auto) (0.0-0.4) % Neut % (Auto) (45-73) % Lymph % (Auto) (20-40) % [place] % (Auto) (2-11) % Eos % (Auto) (0-4) % Baso % (Auto) (0-2) % Lymph # (Auto) (1.2-4.9) X10*3/uL [place] # (Auto) (0.1-1.2) X10*3/uL Eos # (Auto) (0.0-0.4) X10*3/uL Baso # (Auto) (0.0-0.2) X10*3/uL Abs Immat Gran (auto) (0.00-0.03) X10*3/uL Absolute Neuts (auto) (2.0-8.3) X10*3/uL Absolute Nucleated RBC (0.0-0.012) X10*3/uL Nucleated RBC % (auto) (0.0-0.2) /100WBC PT (10.8-13.0) SEC INR (0.9-1.1) APTT (24.1-38.0) SEC Sodium 145 (135-145) mmol/L Potassium 4.8 (3.3-5.1) mmol/L Chloride 108 (96-108) mmol/L Carbon Dioxide 30 H (22-29) mmol/L Anion Gap 12 (12-20) BUN 36 H (9-16) mg/dL Creatinine 1.59 H (0.5-1.4) mg/dL Estim Creat Clear Calc 55.1 Estimated GFR 44 Random Glucose 101 (60-115) mg/dL Lactic Acid 0.7 (0.5-2.0) mmol/L Calcium 9.2 (8.4-10.2) mg/dL Magnesium 1.7 (1.6-2.6) mg/dL Total Bilirubin 0.5 (0.0-1.0) mg/dL Direct Bilirubin 0.2 (0.0-0.5) mg/dL AST 17 (5-37) U/L ALT 20 (0-40) U/L Alkaline Phosphatase 92 (39-117) U/L Troponin I High Sens 36.7 H (<3.5-35.0) ng/L B-Natriuretic Peptide 1681 H (<100) pg/mL Total Protein 5.7 L (6.5-8.0) g/dL Albumin 3.2 L (3.5-5.0) g/dL Procalcitonin ng/mL Ethyl Alcohol mg/dL Coronavirus (PCR) (Negative) Influenza Type A (PCR) (Negative) Influenza Type B (PCR) (Negative) RSV RNA Qual (PCR) (Negative) 12/25/20 12/25/20 Range/Units 16:04 16:04 WBC (4.8-10.8) X10*3/uL RBC (4.60-5.80) X10*6/uL Hgb (14.0-18.0) g/dl Hct (42-52) % MCV (80-98) fL MCH (27.0-33.0) pg MCHC (31.0-36.0) g/dl RDW (11.0-16.0) % Plt Count (160-400) X10*3/uL MPV (9.4-12.4) fL Immature Gran % (Auto) (0.0-0.4) % Neut % (Auto) (45-73) % Lymph % (Auto) (20-40) % [place] % (Auto) (2-11) % Eos % (Auto) (0-4) % Baso % (Auto) (0-2) % Lymph # (Auto) (1.2-4.9) X10*3/uL [place] # (Auto) (0.1-1.2) X10*3/uL Eos # (Auto) (0.0-0.4) X10*3/uL Baso # (Auto) (0.0-0.2) X10*3/uL Abs Immat Gran (auto) (0.00-0.03) X10*3/uL Absolute Neuts (auto) (2.0-8.3) X10*3/uL Absolute Nucleated RBC (0.0-0.012) X10*3/uL Nucleated RBC % (auto) (0.0-0.2) /100WBC PT (10.8-13.0) SEC INR (0.9-1.1) APTT (24.1-38.0) SEC Sodium (135-145) mmol/L Potassium (3.3-5.1) mmol/L Chloride (96-108) mmol/L Carbon Dioxide (22-29) mmol/L Anion Gap (12-20) BUN (9-16) mg/dL Creatinine (0.5-1.4) mg/dL Estim Creat Clear Calc Estimated GFR Random Glucose (60-115) mg/dL Lactic Acid (0.5-2.0) mmol/L Calcium (8.4-10.2) mg/dL Magnesium (1.6-2.6) mg/dL Total Bilirubin (0.0-1.0) mg/dL Direct Bilirubin (0.0-0.5) mg/dL AST (5-37) U/L ALT (0-40) U/L Alkaline Phosphatase (39-117) U/L Troponin I High Sens (<3.5-35.0) ng/L B-Natriuretic Peptide (<100) pg/mL Total Protein (6.5-8.0) g/dL Albumin (3.5-5.0) g/dL Procalcitonin 0.11 ng/mL Ethyl Alcohol < 10 mg/dL Coronavirus (PCR) (Negative) Influenza Type A (PCR) (Negative) Influenza Type B (PCR) (Negative) RSV RNA Qual (PCR) (Negative) Discharge Plan Discharge Clinical Impression: Acute systolic (congestive) heart failure, Atrial fibrillation with rapid ventricular response, Abscess of axilla, left Patient Disposition: Admitted As Inpatient
--- NOTE | 2020-12-25 15:56 | PC.NURSE ---
CONSENT RECEIVED BY PT TO SPEAK WITH CHAI LUCERO AT [facility] THEY HAVE BEEN IN COMMUNICATION WITH [facility], RECOMMEND PT FOR RESPITE PLACEMENT THROUGH ED SHOULD THERE BE NO CLINICAL REASON FOR ADMISSION TO HOSPITAL. BECKY HERMAN POSSIBLY WILLING TO TAKE HIM. [facility] LOSS CLAIM CLERK [phone]
--- NOTE | 2020-12-25 15:57 | PC.NURSE ---
NIC IYER IS AWARE OF PATIENT HIGH BLOOD PRESSURE .
[2020-12-25 16:19] LABS: Eosinophils Absolute Auto 0.1 X10*3/uL (0.0-0.4); Eosinophils Percent Auto 0.5 % (0-4); Hemoglobin 12.2 g/dl (14.0-18.0); Imm Gran Abs Auto 0.13 X10*3/uL (0.00-0.03); Imm Gran Pct Auto 1.3 % (0.0-0.4); PLT CLUMP 1; SCAN SMEAR FLAG 1
[2020-12-25 16:21] LABS: Basophils Percent Auto 0.2 % (0-2); Hematocrit 40.1 % (42-52); Lymphocytes Absolute Auto 1.2 X10*3/uL (1.2-4.9); Lymphocytes Percent Auto 11.7 % (20-40); Mean Corpuscular HGB Conc 30.4 g/dl (31.0-36.0); Mean Corpuscular Hemoglobin 29.1 pg (27.0-33.0); Mean Corpuscular Volume 95.7 fL (80-98); Mean Platelet Volume 11.4 fL (9.4-12.4); Monocytes Absolute Auto 0.9 X10*3/uL (0.1-1.2); Monocytes Percent Auto 9.1 % (2-11); Neutrophils Absolute Auto 7.6 X10*3/uL (2.0-8.3); Neutrophils Percent Auto 77.2 % (45-73); Platelet Count 107 X10*3/uL (160-400); Red Blood Count 4.19 X10*6/uL (4.60-5.80); Red Cell Distribution Width 15.6 % (11.0-16.0); White Blood Count 9.9 X10*3/uL (4.8-10.8)
[2020-12-25 16:35] LABS: INTERNATIONAL NORM RATIO 1.6 (0.9-1.1); Prothrombin Time 19.3 SEC (10.8-13.0)
[2020-12-25] MEDS: Lidocaine HCl 2 % MPF 5 ML VIAL INFILTRATI (16:40)
[2020-12-25 16:47] LABS: Ethanol < 10 mg/dL
[2020-12-25 16:50] LABS: Lactic Acid 0.7 mmol/L (0.5-2.0)
[2020-12-25 16:54] LABS: Alanine Aminotransferase 20 U/L (0-40); Albumin Level 3.2 g/dL (3.5-5.0); Alkaline Phosphatase 92 U/L (39-117); Anion Gap 12 (12-20); Aspartate Amino Transferase 17 U/L (5-37); Bilirubin Direct 0.2 mg/dL (0.0-0.5); Bilirubin Total 0.5 mg/dL (0.0-1.0); Blood Urea Nitrogen 36 mg/dL (9-16); Calcium 9.2 mg/dL (8.4-10.2); Carbon Dioxide 30 mmol/L (22-29); Chloride 108 mmol/L (96-108); Creatinine Clr Calc Pharmacy 55.1; Estimated Glomerular Filt Rate 44; Glucose Random 101 mg/dL (60-115); Magnesium 1.7 mg/dL (1.6-2.6); Potassium 4.8 mmol/L (3.3-5.1); Sodium 145 mmol/L (135-145); Total Protein 5.7 g/dL (6.5-8.0)
[2020-12-25 16:56] LABS: Influenza A PCR NEGATIVE (Negative); Influenza B PCR NEGATIVE (Negative); Resp Syncy Virus RNA Qual PCR NEGATIVE (Negative); SARS COV2 PCR INHOUSE NEGATIVE (Negative)
[2020-12-25 17:06] LABS: Troponin-I High Sensitivity 36.7 ng/L (<3.5-35.0)
[2020-12-25 17:11] LABS: Procalcitonin 0.11 ng/mL
[2020-12-25 17:19] LABS: B Type Natriuretic Peptide 1681 pg/mL (<100)
--- NOTE | 2020-12-25 18:02 | PC.NURSE ---
NIC IYER AWARE OF PATIENT HIGH BLOOD PRESSURE .
--- NOTE | 2020-12-25 18:09 | P.HPHOSP_ITS ---
History of Present Illness Date of Service: 12/25/20 Chief Complaint: Shortness of breath and left axillary abscess 60-year-old male with past medical history of atrial fibrillation, CHF with reduced ejection fraction, polysubstance abuse, renal transplant, presented with chief complaint of left axillary abscess. Patient was recently admitted to [facility] for CHF. was discharged 12/17/20. it appears that patient did not fill his scripts from that admission including furosemide. Plan was to cardiovert, which was to be performed on day of admission. However, patient tested positive for cocaine and therefore was deferred. Patient then decided to come to the ED to get his left axillary abscess evaluated. This has been growing over several days to weeks, is not associated with fever chills. Patient also states that he still short of breath from previous admission and did not feel well in between at all. He describes orthopnea and increased lower extremity edema. In ED chest x-ray showed increased bilateral opacities, elevated BNP. Patient had I and D of his abscess was given Keflex and doxycycline. He was also given IV Lasix. Admission was requested. Review of Systems Review of Systems: Constitutional: Denies fever, denies Chills Eyes: denies blurry vision ENT: denies sore throat CVS: denies chest pain Respiratory: dyspnea GI: no abdominal pain : denies dysuria MSK: denies neck pain Skin: denies rash Neuro: denies specific motor weakness Psych: denies suicidal ideation Endocrine: denies heat/cold intoleratnce Hematologic: denies easy bleeding Allergy: denies hives [facility] Medical History Asthma Atrial fibrillation Bipolar disorder Cellulitis of left foot Cellulitis of left lower extremity Cocaine use Congestive heart failure DVT (deep venous thrombosis) Essential hypertension Gout Heart failure with reduced ejection fraction Hip osteoarthritis History of seizures Obesity Pacemaker PAF (paroxysmal atrial fibrillation) Polysubstance abuse Renal transplant recipient Second degree heart block Subdural hematoma Thrombocytopenia Tobacco abuse Unilateral primary osteoarthritis, left knee Urinary bladder cancer Family History Father Prostate cancer Mother No problems noted. Brother Cancer Surgical History Abscess of arm, left H/O cardiac radiofrequency ablation History of cardiac catheterization History of removal of cyst History of removal of cyst Kidney replaced by transplant Social History Household Members: None Housing: Apartment Alcohol intake: never Smoking Status: Current every day smoker Cigarettes Per Day: 1 Substance Use Type: Crack/Cocaine Advance Directives: Yes Advance Directives Information Provided: No Advance Directives on File: No service: No Current occupational status: retired Meds Allergies Allergy/AdvReac Type Severity Reaction Status Date / Time diltiazem [From Cardizem] Allergy Unknown Dizziness Verified 11/05/20 12:06 indomethacin [Indocin] Allergy Unknown Unknown Verified 11/05/20 12:06 Active Medications: Current Medications Generic Name Dose Route Start Last Admin Trade Name Freq PRN Reason Stop Dose Admin Pharmacy Consult 1 each 12/25/20 15:07 Consult Rx Perform Med Rec MISCELLANE ONCE PRN Consult order Home Medications Medication Instructions Recorded Confirmed Last Taken Type aripiprazole 30 mg tablet 30 mg PO DAILY 08/13/20 12/25/20 12/24/20 History omeprazole 20 mg capsule,delayed 20 mg PO DAILY 08/13/20 12/25/20 12/24/20 History release tacrolimus 1 mg capsule, 2 mg PO BID 08/13/20 12/25/20 12/24/20 History immediate-release albuterol sulfate 90 mcg/actuation 2 puff INHALATION Q6H PRN 09/29/20 12/25/20 Unknown History aerosol inhaler Phospha 250 Neutral 1 tab PO DAILY 12/08/20 12/25/20 12/24/20 History divalproex [Depakote ER] 1,000 mg PO BEDTIME 12/08/20 12/25/20 12/24/20 History divalproex [Depakote ER] 500 mg PO DAILY 12/08/20 12/25/20 12/24/20 History diltiazem HCl [Cardizem LA] 1 tab PO DAILY 12/25/20 12/25/20 12/24/20 History Physical Exam Vital Signs and Narrative: Vital Signs: Last Vital Signs Temp 97.8 F 12/25/20 18:00 Pulse 94 12/25/20 18:00 Resp 18 12/25/20 18:00 BP 158/104 H 12/25/20 18:00 Pulse Ox 94 12/25/20 18:00 Body Mass Index 33.4 General: no acute distress HEENT: atraumatic Neck: normal to visual inspection CVS: S1,s2, rapid irregular Resp: crackles Chest: non tender GI: soft, non tender, non distended : no CVA tenderness Skin: left axilla abscess s/p i an d Extremities: 3+ edema, LUE fistula Neuro: Oriented X3, grossly intact Psych: cooperative Results Labs CBC and Chem 7: 12/25/20 16:04 12/25/20 16:04 Labs: Laboratory Results - last 24 hr 12/25/20 12/25/20 12/25/20 15:56 16:04 16:04 MCV 95.7 MCH 29.1 MCHC 30.4 L RDW 15.6 Plt Count 107 L MPV 11.4 Immature Gran % (Auto) 1.3 H Neut % (Auto) 77.2 H Lymph % (Auto) 11.7 L [place] % (Auto) 9.1 Eos % (Auto) 0.5 Baso % (Auto) 0.2 Lymph # (Auto) 1.2 Gray # (Auto) 0.9 Eos # (Auto) 0.1 Baso # (Auto) 0.0 Abs Immat Gran (auto) 0.13 H Absolute Neuts (auto) 7.6 Absolute Nucleated RBC 0.000 Nucleated RBC % (auto) 0.0 PT 19.3 H D INR 1.6 H APTT 40.0 H D Anion Gap Estim Creat Clear Calc Estimated GFR Random Glucose Lactic Acid Calcium Magnesium Total Bilirubin Direct Bilirubin AST ALT Alkaline Phosphatase Troponin I High Sens B-Natriuretic Peptide Total Protein Albumin Procalcitonin Ethyl Alcohol Coronavirus (PCR) NEGATIVE Influenza Type A (PCR) NEGATIVE Influenza Type B (PCR) NEGATIVE RSV RNA Qual (PCR) NEGATIVE 12/25/20 12/25/20 12/25/20 16:04 16:04 16:04 MCV MCH MCHC RDW Plt Count MPV Immature Gran % (Auto) Neut % (Auto) Lymph % (Auto) [place] % (Auto) Eos % (Auto) Baso % (Auto) Lymph # (Auto) Gray # (Auto) Eos # (Auto) Baso # (Auto) Abs Immat Gran (auto) Absolute Neuts (auto) Absolute Nucleated RBC Nucleated RBC % (auto) PT INR APTT Anion Gap 12 Estim Creat Clear Calc 55.1 Estimated GFR 44 Random Glucose 101 Lactic Acid 0.7 Calcium 9.2 Magnesium 1.7 Total Bilirubin 0.5 Direct Bilirubin 0.2 AST 17 ALT 20 Alkaline Phosphatase 92 Troponin I High Sens 36.7 H B-Natriuretic Peptide 1681 H Total Protein 5.7 L Albumin 3.2 L Procalcitonin Ethyl Alcohol Coronavirus (PCR) Influenza Type A (PCR) Influenza Type B (PCR) RSV RNA Qual (PCR) 12/25/20 12/25/20 16:04 16:04 MCV MCH MCHC RDW Plt Count MPV Immature Gran % (Auto) Neut % (Auto) Lymph % (Auto) [place] % (Auto) Eos % (Auto) Baso % (Auto) Lymph # (Auto) Gray # (Auto) Eos # (Auto) Baso # (Auto) Abs Immat Gran (auto) Absolute Neuts (auto) Absolute Nucleated RBC Nucleated RBC % (auto) PT INR APTT Anion Gap Estim Creat Clear Calc Estimated GFR Random Glucose Lactic Acid Calcium Magnesium Total Bilirubin Direct Bilirubin AST ALT Alkaline Phosphatase Troponin I High Sens B-Natriuretic Peptide Total Protein Albumin Procalcitonin 0.11 Ethyl Alcohol < 10 Coronavirus (PCR) Influenza Type A (PCR) Influenza Type B (PCR) RSV RNA Qual (PCR) Imaging Radiologist's Impressions: Impressions Chest X-Ray 12/25/20 15:07 IMPRESSION: Increased bilateral parahilar opacities likely interstitial edema or interstitial pneumonitis. Similar findings were seen on the previous study 12/08/2020 Assessment and Plan (1) Acute systolic (congestive) heart failure: Status: Acute 60M presented with sob and axillary abscess sob due to acute on chronic chf with reduced EF, thought to be tachy or cocaine related lasix drip (did poorly with intermittent IV lasix on previous admission) monitor electrolytes cardio eval continue beta sagar, hydralazine, isodril afib with rvr cardizem, lopressor, cardio eval, xarelto renal transplant tacrolimus nephro eval axillary abscess keflex, doxy s/p i and d biploar depakote
[2020-12-25] MEDS: cephALEXin 500 MG CAPSULE PO ×2 (18:12→21:26)
[2020-12-25] MEDS: Furosemide 40 MG/4 ML VIAL IVPUSH (18:12)
[2020-12-25] MEDS: hydrALAZINE HCl 10 MG TABLET PO ×2 (18:12→20:43)
[2020-12-25 18:21] LABS: Appearance Urine CLEAR; Color Urine YELLOW; Glucose Urine UA NEG (NEG); Leukocyte Esterase Urine NEG (NEG); Nitrite Urine NEG (NEG); Urine Blood NEG (NEG); Urine Ketones NEG (NEG); Urine Protein 2+ MG/DL (NEG-TRACE)
[2020-12-25 18:29] LABS: Bacteria Urine TRACE /LPF; RBC Urine 0-2 /HPF (0); WBC Urine 0 /HPF (0-4)
[2020-12-25 19:12] LABS: Troponin-I High Sensitivity 40.5 ng/L (<3.5-35.0)
--- NOTE | 2020-12-25 19:31 | PC.NURSE ---
[place] [facility] [place]
[2020-12-25] MEDS: Divalproex Sodium ER 500 MG TAB.ER.24H 1000 MG PO (20:43)
[2020-12-25] MEDS: Metoprolol Tartrate 50 MG TABLET PO (20:44)
[2020-12-25] MEDS: Furosemide 500 MG in Container,Empty 0 ML IVCONT (20:45)
[2020-12-25] MEDS: 0.9 % Sodium Chloride Flush 3 ML SYRINGE IVFLUSH (20:45)
[2020-12-25] MEDS: Tacrolimus 1 MG CAPSULE 2 MG PO (21:26)
[2020-12-25] MEDS: Isosorbide Dinitrate 5 MG TABLET PO (21:26)
[2020-12-26] VITALS (11 sets, daily range): BP systolic 120–170; BP diastolic 77–100; PULSE 81–113; RESP 17–18; TEMP 36.8–37.8; O2SAT 92–98
[2020-12-26 01:35] LABS: Troponin-I High Sensitivity 48.3 ng/L (<3.5-35.0)
[2020-12-26] MEDS: Omeprazole 20 MG CAPSULE.DR PO (05:52)
[2020-12-26 07:01] LABS: MANUAL DIFF FLAG NO
[2020-12-26 07:19] LABS: Basophils Percent Auto 0.3 % (0-2); Eosinophils Percent Auto 0.2 % (0-4); Hematocrit 35.3 % (42-52); Hemoglobin 11.2 g/dl (14.0-18.0); Imm Gran Abs Auto 0.11 X10*3/uL (0.00-0.03); Lymphocytes Absolute Auto 1.7 X10*3/uL (1.2-4.9); Mean Corpuscular HGB Conc 31.7 g/dl (31.0-36.0); Mean Corpuscular Hemoglobin 29.2 pg (27.0-33.0); Mean Corpuscular Volume 91.9 fL (80-98); Mean Platelet Volume 12.3 fL (9.4-12.4); Monocytes Absolute Auto 1.1 X10*3/uL (0.1-1.2); Monocytes Percent Auto 9.8 % (2-11); Neutrophils Absolute Auto 7.7 X10*3/uL (2.0-8.3); Neutrophils Percent Auto 72.7 % (45-73); Platelet Count 112 X10*3/uL (160-400); Red Blood Count 3.84 X10*6/uL (4.60-5.80); Red Cell Distribution Width 15.5 % (11.0-16.0); White Blood Count 10.7 X10*3/uL (4.8-10.8)
[2020-12-26 07:41] LABS: Anion Gap 13 (12-20); Blood Urea Nitrogen 38 mg/dL (9-16); Calcium 8.9 mg/dL (8.4-10.2); Carbon Dioxide 28 mmol/L (22-29); Chloride 105 mmol/L (96-108); Creatinine Clr Calc Pharmacy 46.7; Estimated Glomerular Filt Rate 39; Glucose Random 103 mg/dL (60-115); Potassium 4.6 mmol/L (3.3-5.1); Sodium 141 mmol/L (135-145)
[2020-12-26] MEDS: Divalproex Sodium ER 500 MG TAB.ER.24H PO (07:58)
[2020-12-26] MEDS: ARIPiprazole 30 MG TABLET PO (07:58)
[2020-12-26] MEDS: Magnesium Oxide 400 MG TABLET PO ×2 (07:58→17:10)
[2020-12-26] MEDS: cephALEXin 500 MG CAPSULE PO ×2 (07:59→21:08)
[2020-12-26] MEDS: Rivaroxaban 15 MG TABLET PO (07:59)
[2020-12-26] MEDS: Isosorbide Dinitrate 5 MG TABLET PO ×2 (08:01→21:09)
[2020-12-26] MEDS: dilTIAZem HCL CD 120 MG CAP.ER.DEG PO (08:01)
[2020-12-26] MEDS: hydrALAZINE HCl 10 MG TABLET PO ×2 (08:02→21:10)
[2020-12-26] MEDS: Metoprolol Tartrate 50 MG TABLET PO ×2 (08:02→21:11)
--- NOTE | 2020-12-26 09:59 | P.CONCA_ITS ---
History of Present Illness History of Present Illness Date of Service: 12/26/20 Requesting physician: Rolando Jeffrey Chief complaint: CHF Narrative: 60-year-old gentleman who is presenting for axillary abscess which was drained in the ER. He was recently admitted with congestive heart failure and was diagnosed with severe systolic dysfunction. He went home but did not take his Lasix scripts. He presented for axillary abscess but had significant volume overload also with dyspnea. He was admitted and started on Lasix drip. He has been doing much better on his edema and shortness of breath is improving. His renal any chest discomfort. Again he is positive for cocaine in the urine. Review of Systems Review of Systems: Edema, shortness of breath Yes all other systems are reviewed and are negative PMFSH Past Medical History Medical History Asthma Atrial fibrillation Bipolar disorder Cellulitis of left foot Cellulitis of left lower extremity Cocaine use Congestive heart failure DVT (deep venous thrombosis) Essential hypertension Gout Heart failure with reduced ejection fraction Hip osteoarthritis History of seizures Obesity Pacemaker PAF (paroxysmal atrial fibrillation) Polysubstance abuse Renal transplant recipient Second degree heart block Subdural hematoma Thrombocytopenia Tobacco abuse Unilateral primary osteoarthritis, left knee Urinary bladder cancer Family History Family History Father Prostate cancer Mother No problems noted. Brother Cancer Surgical History Surgical History Abscess of arm, left H/O cardiac radiofrequency ablation History of cardiac catheterization History of removal of cyst History of removal of cyst Kidney replaced by transplant Social History Social History Household Members: None Housing: Apartment Do you presently have visiting nurse or other home services: Yes ([facility]) Alcohol intake: never Smoking Status: Former smoker Tobacco Type: Cigarette Cigarettes Per Day: 1 Smoked in Last 30 Days: Yes Smoking Quit Date: unknown, pt states a few weeks ago Use of substances other than those prescribed or required for medical reasons: Yes Substance Use Type: Crack/Cocaine Last Used Substance Other:: pt states 3 weeks ago, tox screen 12/25 positive cocaine Currently Displaying Signs/Symptoms of Drug Intoxication Withdrawal: No Any prior treatment program specific to substance use: Yes ([place]) Have you been hit, kicked, punched, or otherwise hurt by someone within the past year? If so, by whom?: No Do you feel safe in your current relationship?: No Is there a partner from a previous relationship who is making you feel unsafe now?: No Are you made to feel afraid or neglected: No Advance Directives: Yes Advance Directives Information Provided: No Advance Directives on File: No Advance Directives Date on File: 12/25/20 Do you have thoughts of harming others: None Do you have a plan to hurt others: No Plan Recently lost weight without trying: No service: No Current occupational status: retired [employer] Allergies Allergy/AdvReac Type Severity Reaction Status Date / Time diltiazem [From Cardizem] Allergy Unknown Dizziness Verified 11/05/20 12:06 indomethacin [Indocin] Allergy Unknown Unknown Verified 11/05/20 12:06 Active Medications: Current Medications Generic Name Dose Route Start Last Admin Trade Name Freq PRN Reason Stop Dose Admin Albuterol Sulfate 2 puff 12/25/20 19:50 Albuterol Sulfate 90 Mcg 8 Gm Inhaler INHALE Q6H PRN Respiratory Distress Aripiprazole 30 mg 12/26/20 09:00 12/26/20 07:58 Aripiprazole 30 Mg Tablet PO 30 mg DAILY YOLANDA Administration Cephalexin HCl 500 mg 12/25/20 21:00 12/26/20 07:59 Cephalexin 500 Mg Capsule PO 500 mg Q12H YOLANDA Administration Diltiazem HCl 120 mg 12/26/20 09:00 12/26/20 08:01 Diltiazem Hcl Cd 120 Mg Cap.Er.Deg PO 120 mg DAILY YOLANDA Administration Protocol Divalproex Sodium 500 mg 12/26/20 09:00 12/26/20 07:58 Divalproex Sodium Er 500 Mg Tab.Er.24h PO 500 mg DAILY YOLANDA Administration Divalproex Sodium 1,000 mg 12/25/20 21:00 12/25/20 20:43 Divalproex Sodium Er 500 Mg Tab.Er.24h PO 1,000 mg BEDTIME YOLANDA Administration Doxycycline Hyclate 100 mg 12/25/20 21:00 12/26/20 07:59 Doxycycline Hyclate 100 Mg Tablet PO 100 mg BID YOLANDA Administration Hydralazine HCl 10 mg 12/25/20 21:00 12/26/20 08:02 Hydralazine Hcl 10 Mg Tablet PO 10 mg BID [facility] Administration Protocol Furosemide 500 mg/ IV 50 mls @ 0.5 mls/hr 12/25/20 19:50 12/25/20 20:45 Miscellaneous Supplies IVCONT 5 mg/hr .Q24H YOLANDA 0.5 mls/hr Administration 5 MG/HR Isosorbide Dinitrate 5 mg 12/25/20 21:00 12/26/20 08:01 Isosorbide Dinitrate 5 Mg Tablet PO 5 mg BID [facility] Administration Protocol Magnesium Oxide 400 mg 12/26/20 08:30 12/26/20 07:58 Magnesium Oxide 400 Mg Tablet PO 400 mg BIDPC [facility] Administration Metoprolol Tartrate 50 mg 12/25/20 21:00 12/26/20 08:02 Metoprolol Tartrate 50 Mg Tablet PO 50 mg BID [facility] Administration Protocol Nitroglycerin 0.4 mg 12/25/20 22:53 Nitroglycerin 0.4 Mg Tab.Subl SUBLINGUAL Q5MX3 PRN Chest Pain Omeprazole 20 mg 12/26/20 06:30 12/26/20 05:52 Omeprazole 20 Mg Capsule. PO 20 mg DAILY@0630 [facility] Administration Pharmacy Consult 1 each 12/25/20 15:07 Consult Rx Perform Med Rec MISCELLANE ONCE PRN Consult order Rivaroxaban 15 mg 12/26/20 09:00 12/26/20 07:59 Rivaroxaban 15 Mg Tablet PO 15 mg DAILY [facility] Administration Sodium Chloride 3 ml 12/26/20 00:00 12/26/20 07:58 0.9 % Sodium Chloride Flush 3 Ml Syringe IVFLUSH Not Given QSHIFT [facility] Tacrolimus 2 mg 12/25/20 21:00 12/25/20 21:26 Tacrolimus 1 Mg Capsule PO 2 mg BID [facility] Administration Home Medications Medication Instructions Recorded Confirmed Last Taken Type aripiprazole 30 mg tablet 30 mg PO DAILY 08/13/20 12/25/20 12/24/20 History omeprazole 20 mg capsule,delayed 20 mg PO DAILY 08/13/20 12/25/20 12/24/20 History release tacrolimus 1 mg capsule, 2 mg PO BID 08/13/20 12/25/20 12/24/20 History immediate-release albuterol sulfate 90 mcg/actuation 2 puff INHALATION Q6H PRN 09/29/20 12/25/20 Unknown History aerosol inhaler Phospha 250 Neutral 1 tab PO DAILY 12/08/20 12/25/20 12/24/20 History divalproex [Depakote ER] 1,000 mg PO BEDTIME 12/08/20 12/25/20 12/24/20 History divalproex [Depakote ER] 500 mg PO DAILY 12/08/20 12/25/20 12/24/20 History diltiazem HCl [Cardizem LA] 1 tab PO DAILY 12/25/20 12/25/20 12/24/20 History Physical Exam Vital Signs: Vital Signs: Last Vital Signs Temp 99.0 F 12/26/20 08:00 Pulse 93 12/26/20 08:02 Resp 17 12/26/20 08:00 BP 128/81 12/26/20 08:02 Pulse Ox 96 12/26/20 08:00 Body Mass Index 29.2 GENERAL APPEARANCE: in no acute distress, well developed, well nourished. HEENT: unremarkable. HEAD: normocephalic, atraumatic. NECK/THYROID: no carotid bruit, no jugular venous distention. SKIN: Left axillary abscess drained and dressing in place. HEART: no murmurs, irregular rate and rhythm, S1, S2 normal. LUNGS: clear to auscultation bilaterally. ABDOMEN: normal, bowel sounds present, soft, nontender, nondistended. EXTREMITIES: no clubbing, cyanosis. 1+ edema lower extremities PERIPHERAL PULSES: equal. NEUROLOGIC: nonfocal, alert and oriented. PSYCH: mood/affect full range. Results Labs and Meds Result diagrams: 12/26/20 06:33 12/26/20 06:33 Lab results: Laboratory Results - last 24 hr 12/25/20 12/25/20 12/25/20 15:56 16:04 16:04 WBC 9.9 RBC 4.19 L Hgb 12.2 L Hct 40.1 L MCV 95.7 MCH 29.1 MCHC 30.4 L RDW 15.6 Plt Count 107 L MPV 11.4 Immature Gran % (Auto) 1.3 H Neut % (Auto) 77.2 H Lymph % (Auto) 11.7 L [place] % (Auto) 9.1 Eos % (Auto) 0.5 Baso % (Auto) 0.2 Lymph # (Auto) 1.2 [place] # (Auto) 0.9 Eos # (Auto) 0.1 Baso # (Auto) 0.0 Abs Immat Gran (auto) 0.13 H Absolute Neuts (auto) 7.6 Absolute Nucleated RBC 0.000 Nucleated RBC % (auto) 0.0 PT 19.3 H D INR 1.6 H APTT 40.0 H D Sodium Potassium Chloride Carbon Dioxide Anion Gap BUN Creatinine Estim Creat Clear Calc Estimated GFR Random Glucose Lactic Acid Calcium Magnesium Total Bilirubin Direct Bilirubin AST ALT Alkaline Phosphatase Troponin I High Sens B-Natriuretic Peptide Total Protein Albumin Procalcitonin Urine Color Urine Appearance Urine pH Ur Specific [place] Urine Protein Urine Glucose (UA) Urine Ketones Urine Blood Urine Nitrite Ur Leukocyte Esterase Urine RBC Urine WBC Ur Squamous Epith Cells Urine Bacteria Ethyl Alcohol Coronavirus (PCR) NEGATIVE Influenza Type A (PCR) NEGATIVE Influenza Type B (PCR) NEGATIVE RSV RNA Qual (PCR) NEGATIVE 12/25/20 12/25/20 12/25/20 16:04 16:04 16:04 WBC RBC Hgb Hct MCV MCH MCHC RDW Plt Count MPV Immature Gran % (Auto) Neut % (Auto) Lymph % (Auto) [place] % (Auto) Eos % (Auto) Baso % (Auto) Lymph # (Auto) [place] # (Auto) Eos # (Auto) Baso # (Auto) Abs Immat Gran (auto) Absolute Neuts (auto) Absolute Nucleated RBC Nucleated RBC % (auto) PT INR APTT Sodium 145 Potassium 4.8 Chloride 108 Carbon Dioxide 30 H Anion Gap 12 BUN 36 H Creatinine 1.59 H Estim Creat Clear Calc 55.1 Estimated GFR 44 Random Glucose 101 Lactic Acid 0.7 Calcium 9.2 Magnesium 1.7 Total Bilirubin 0.5 Direct Bilirubin 0.2 AST 17 ALT 20 Alkaline Phosphatase 92 Troponin I High Sens 36.7 H B-Natriuretic Peptide 1681 H Total Protein 5.7 L Albumin 3.2 L Procalcitonin Urine Color Urine Appearance Urine pH Ur Specific [place] Urine Protein Urine Glucose (UA) Urine Ketones Urine Blood Urine Nitrite Ur Leukocyte Esterase Urine RBC Urine WBC Ur Squamous Epith Cells Urine Bacteria Ethyl Alcohol Coronavirus (PCR) Influenza Type A (PCR) Influenza Type B (PCR) RSV RNA Qual (PCR) 12/25/20 12/25/20 12/25/20 16:04 16:04 18:04 WBC RBC Hgb Hct MCV MCH MCHC RDW Plt Count MPV Immature Gran % (Auto) Neut % (Auto) Lymph % (Auto) [place] % (Auto) Eos % (Auto) Baso % (Auto) Lymph # (Auto) [place] # (Auto) Eos # (Auto) Baso # (Auto) Abs Immat Gran (auto) Absolute Neuts (auto) Absolute Nucleated RBC Nucleated RBC % (auto) PT INR APTT Sodium Potassium Chloride Carbon Dioxide Anion Gap BUN Creatinine Estim Creat Clear Calc Estimated GFR Random Glucose Lactic Acid Calcium Magnesium Total Bilirubin Direct Bilirubin AST ALT Alkaline Phosphatase Troponin I High Sens B-Natriuretic Peptide Total Protein Albumin Procalcitonin 0.11 Urine Color YELLOW Urine Appearance CLEAR Urine pH 8.0 Ur Specific [place] 1.020 Urine Protein 2+ H Urine Glucose (UA) NEG Urine Ketones NEG Urine Blood NEG Urine Nitrite NEG Ur Leukocyte Esterase NEG Urine RBC 0-2 Urine WBC 0 Ur Squamous Epith Cells NONE Urine Bacteria TRACE Ethyl Alcohol < 10 Coronavirus (PCR) Influenza Type A (PCR) Influenza Type B (PCR) RSV RNA Qual (PCR) 12/25/20 12/25/20 12/26/20 18:09 23:52 06:33 WBC 10.7 RBC 3.84 L Hgb 11.2 L Hct 35.3 L MCV 91.9 MCH 29.2 MCHC 31.7 RDW 15.5 Plt Count 112 L MPV 12.3 Immature Gran % (Auto) 1.0 H Neut % (Auto) 72.7 Lymph % (Auto) 16.0 L [place] % (Auto) 9.8 Eos % (Auto) 0.2 Baso % (Auto) 0.3 Lymph # (Auto) 1.7 [place] # (Auto) 1.1 Eos # (Auto) 0.0 Baso # (Auto) 0.0 Abs Immat Gran (auto) 0.11 H Absolute Neuts (auto) 7.7 Absolute Nucleated RBC 0.000 Nucleated RBC % (auto) 0.0 PT INR APTT Sodium Potassium Chloride Carbon Dioxide Anion Gap BUN Creatinine Estim Creat Clear Calc Estimated GFR Random Glucose Lactic Acid Calcium Magnesium Total Bilirubin Direct Bilirubin AST ALT Alkaline Phosphatase Troponin I High Sens 40.5 H 48.3 H B-Natriuretic Peptide Total Protein Albumin Procalcitonin Urine Color Urine Appearance Urine pH Ur Specific [place] Urine Protein Urine Glucose (UA) Urine Ketones Urine Blood Urine Nitrite Ur Leukocyte Esterase Urine RBC Urine WBC Ur Squamous Epith Cells Urine Bacteria Ethyl Alcohol Coronavirus (PCR) Influenza Type A (PCR) Influenza Type B (PCR) RSV RNA Qual (PCR) 12/26/20 06:33 WBC RBC Hgb Hct MCV MCH MCHC RDW Plt Count MPV Immature Gran % (Auto) Neut % (Auto) Lymph % (Auto) [place] % (Auto) Eos % (Auto) Baso % (Auto) Lymph # (Auto) [place] # (Auto) Eos # (Auto) Baso # (Auto) Abs Immat Gran (auto) Absolute Neuts (auto) Absolute Nucleated RBC Nucleated RBC % (auto) PT INR APTT Sodium 141 Potassium 4.6 Chloride 105 Carbon Dioxide 28 Anion Gap 13 BUN 38 H Creatinine 1.76 H Estim Creat Clear Calc 46.7 Estimated GFR 39 Random Glucose 103 Lactic Acid Calcium 8.9 Magnesium Total Bilirubin Direct Bilirubin AST ALT Alkaline Phosphatase Troponin I High Sens B-Natriuretic Peptide Total Protein Albumin Procalcitonin Urine Color Urine Appearance Urine pH Ur Specific [place] Urine Protein Urine Glucose (UA) Urine Ketones Urine Blood Urine Nitrite Ur Leukocyte Esterase Urine RBC Urine WBC Ur Squamous Epith Cells Urine Bacteria Ethyl Alcohol Coronavirus (PCR) Influenza Type A (PCR) Influenza Type B (PCR) RSV RNA Qual (PCR) Imaging Radiologist's impression: Impressions Chest X-Ray 12/25/20 15:07 IMPRESSION: Increased bilateral parahilar opacities likely interstitial edema or interstitial pneumonitis. Similar findings were seen on the previous study 12/08/2020 Assessment and Plan (1) Atrial fibrillation with rapid ventricular response: Status: Acute (2) Heart failure with reduced ejection fraction: Status: Acute (3) Polysubstance abuse: Status: Acute 60-year-old gentleman presenting for left axillary abscess which was drained and shortness of breath and edema. He was recently admitted and diagnos ed with systolic heart failure. He was positive for cocaine in the urine. Is presenting again with volume overload and is cocaine positive. He did not take his Lasix drip and was not taking diuretics at all. He was started on Lasix drip and the he is diuresing well and feeling better. I think the Lasix drip can be stopped today. He can be resumed on 40 mg Lasix twice a day orally from tomorrow. Underlying etiology for his cardiomyopathy is likely cocaine abuse. Given noncompliance and active drug abuse I do not think cardioversion is a safe possibility in him. Blood pressure control is good right now. Thank you for allowing me to participate in the care of your patient. Please feel free to contact me if you have any questions.
--- NOTE | 2020-12-26 10:10 | HO.PM.IMPN ---
Subjective Subjective Date of Service: 12/26/20 Interval History: sob improving, edema improving Cardiovascular Cardiovascular: Reports no additional cardiovascular complaints Gastrointestinal Gastrointestinal: Reports no additional gastrointestinal complaints Physical Exam Vital Signs: Vital Signs: Last Vital Signs Temp 99.0 F 12/26/20 08:00 Pulse 93 12/26/20 08:02 Resp 17 12/26/20 08:00 BP 128/81 12/26/20 08:02 Pulse Ox 96 12/26/20 08:00 Body Mass Index 29.2 General: AO X 3, some duval Resp: CTA bilateral CVS: S1,S2,RRR, 2+ edema GI: soft, non tender, non distended Neuro: motor grossly intact Psych: appropriate affect Objective Data Current Medications Generic Name Dose Route Start Last Admin Trade Name Freq PRN Reason Stop Dose Admin Albuterol Sulfate 2 puff 12/25/20 19:50 Albuterol Sulfate 90 Mcg 8 Gm Inhaler INHALE Q6H PRN Respiratory Distress Aripiprazole 30 mg 12/26/20 09:00 12/26/20 07:58 Aripiprazole 30 Mg Tablet PO 30 mg DAILY YOLANDA Administration Cephalexin HCl 500 mg 12/25/20 21:00 12/26/20 07:59 Cephalexin 500 Mg Capsule PO 500 mg Q12H YOLANDA Administration Diltiazem HCl 120 mg 12/26/20 09:00 12/26/20 08:01 Diltiazem Hcl Cd 120 Mg Cap.Er.Deg PO 120 mg DAILY YOLANDA Administration Protocol Divalproex Sodium 500 mg 12/26/20 09:00 12/26/20 07:58 Divalproex Sodium Er 500 Mg Tab.Er.24h PO 500 mg DAILY YOLANDA Administration Divalproex Sodium 1,000 mg 12/25/20 21:00 12/25/20 20:43 Divalproex Sodium Er 500 Mg Tab.Er.24h PO 1,000 mg BEDTIME YOLANDA Administration Doxycycline Hyclate 100 mg 12/25/20 21:00 12/26/20 07:59 Doxycycline Hyclate 100 Mg Tablet PO 100 mg BID YOLANDA Administration Hydralazine HCl 10 mg 12/25/20 21:00 12/26/20 08:02 Hydralazine Hcl 10 Mg Tablet PO 10 mg BID YOLANDA Administration Protocol Furosemide 500 mg/ IV 50 mls @ 0.5 mls/hr 12/25/20 19:50 12/25/20 20:45 Miscellaneous Supplies IVCONT 5 mg/hr .Q24H YOLANDA 0.5 mls/hr Administration 5 MG/HR Isosorbide Dinitrate 5 mg 12/25/20 21:00 12/26/20 08:01 Isosorbide Dinitrate 5 Mg Tablet PO 5 mg BID YOLANDA Administration Protocol Magnesium Oxide 400 mg 12/26/20 08:30 12/26/20 07:58 Magnesium Oxide 400 Mg Tablet PO 400 mg BIDPC YOLANDA Administration Metoprolol Tartrate 50 mg 12/25/20 21:00 12/26/20 08:02 Metoprolol Tartrate 50 Mg Tablet PO 50 mg BID YOLANDA Administration Protocol Nitroglycerin 0.4 mg 12/25/20 22:53 Nitroglycerin 0.4 Mg Tab.Subl SUBLINGUAL Q5MX3 PRN Chest Pain Omeprazole 20 mg 12/26/20 06:30 12/26/20 05:52 Omeprazole 20 Mg Capsule.Dr PO 20 mg DAILY@0630 [facility] Administration Pharmacy Consult 1 each 12/25/20 15:07 Consult Rx Perform Med Rec MISCELLANE ONCE PRN Consult order Rivaroxaban 15 mg 12/26/20 09:00 12/26/20 07:59 Rivaroxaban 15 Mg Tablet PO 15 mg DAILY YOLANDA Administration Sodium Chloride 3 ml 12/26/20 00:00 12/26/20 07:58 0.9 % Sodium Chloride Flush 3 Ml Syringe IVFLUSH Not Given QSHIFT [facility] Tacrolimus 2 mg 12/25/20 21:00 12/25/20 21:26 Tacrolimus 1 Mg Capsule PO 2 mg BID [facility] Administration Labs CBC & Chem 7: 12/26/20 06:33 12/26/20 06:33 Assessment and Plan (1) Acute systolic (congestive) heart failure: Status: Acute (2) Atrial fibrillation with rapid ventricular response: Status: Acute Assessment and Plan: sob due to acute on chronic chf with reduced EF, thought to be tachy or cocaine related improving, likely 24hrs more of lasix drip, then will change to po monitor electrolytes cardio appreciated continue beta sagar, hydralazine, isodril afib with rvr cardizem, lopressor, xarelto may not be good candidate for JUAN M/CV due to compliance issues renal transplant tacrolimus nephro eval axillary abscess keflex, doxy s/p i and d biploar depakote
[2020-12-26] MEDS: Tacrolimus 1 MG CAPSULE 2 MG PO ×2 (11:33→21:11)
--- NOTE | 2020-12-26 13:04 | MHC.CM.PN ---
PT REPORTS HE LIVES ALONE AND IS ACTIVE WITH [facility] FOR COMMUNITY SUPPORT SERVICES. PT PROVIDES CONTACT INFORMATION FOR TWO [facility] STAFF MEMBERS, MAYRA ([phone]) AND ELAINE ([phone]). PT REPORTS HE IS ALSO ACTIVE WITH A [employer] [facility]. PT REPORTS HE HAS BOTH A CANE AND A WALKER AND HE IS ACTIVE WITH [facility] FOR PRIMARY CARE. PT REPORTS HE DOES NOT HAVE A HCP. CURRENT DC PLAN IS HOME WITH RESUMPTION OF SERVICES PT MAY NEED ASSISTANCE WITH TRANSPORTATION HOME
--- NOTE | 2020-12-26 16:44 | PM.CNNEP ---
History of Present Illness Reason for Consult Consult date: 12/26/20 Reason for consult: ANA and Transplant Management Chief Complaint Chief complaint: CHF History of Present Illness Narrative: Mr. Deshaun Adame is a 60-year-old gentleman with past medical history of ESRDs/p DDKT with CKD of graft (BL Cr 1.5 mg/dL), cocaine use, bipolar disorder, gout, cigar smoker, secondary hyperparathyroidism, and anemia who presents for dyspnea and LE edema c/w heart failure exacerbation with Afib RVR and cocaine. ANA on presentation. Diuresing well on my assessment, already feeling better he tells me. Review of Systems Review of Systems Yes all other systems are reviewed and are negative Cardiovascular: Reports no additional cardiovascular complaints Gastrointestinal: Reports no additional gastrointestinal complaints PMFSH Past Medical History Medical History Asthma Atrial fibrillation Bipolar disorder Cellulitis of left foot Cellulitis of left lower extremity Cocaine use Congestive heart failure DVT (deep venous thrombosis) Essential hypertension Gout Heart failure with reduced ejection fraction Hip osteoarthritis History of seizures Obesity Pacemaker PAF (paroxysmal atrial fibrillation) Polysubstance abuse Renal transplant recipient Second degree heart block Subdural hematoma Thrombocytopenia Tobacco abuse Unilateral primary osteoarthritis, left knee Urinary bladder cancer Family History Family History Father Prostate cancer Mother No problems noted. Brother Cancer Surgical History Surgical History Abscess of arm, left H/O cardiac radiofrequency ablation History of cardiac catheterization History of removal of cyst History of removal of cyst Kidney replaced by transplant Social History Social History Household Members: None Housing: Apartment Do you presently have visiting nurse or other home services: Yes ([facility]) Alcohol intake: never Smoking Status: Former smoker Tobacco Type: Cigarette Cigarettes Per Day: 1 Smoked in Last 30 Days: Yes Smoking Quit Date: unknown, pt states a few weeks ago Use of substances other than those prescribed or required for medical reasons: Yes Substance Use Type: Crack/Cocaine Last Used Substance Other:: pt states 3 weeks ago, tox screen 12/25 positive cocaine Currently Displaying Signs/Symptoms of Drug Intoxication Withdrawal: No Any prior treatment program specific to substance use: Yes ([place]) Have you been hit, kicked, punched, or otherwise hurt by someone within the past year? If so, by whom?: No Do you feel safe in your current relationship?: No Is there a partner from a previous relationship who is making you feel unsafe now?: No Are you made to feel afraid or neglected: No Advance Directives: Yes Advance Directives Information Provided: No Advance Directives on File: No Advance Directives Date on File: 12/25/20 Do you have thoughts of harming others: None Do you have a plan to hurt others: No Plan Recently lost weight without trying: No service: No Current occupational status: retired Meds Allergies Allergy/AdvReac Type Severity Reaction Status Date / Time diltiazem [From Cardizem] Allergy Unknown Dizziness Verified 11/05/20 12:06 indomethacin [Indocin] Allergy Unknown Unknown Verified 11/05/20 12:06 Active Medications: Current Medications Generic Name Dose Route Start Last Admin Trade Name Freq PRN Reason Stop Dose Admin Albuterol Sulfate 2 puff 12/25/20 19:50 Albuterol Sulfate 90 Mcg 8 Gm Inhaler INHALE Q6H PRN Respiratory Distress Aripiprazole 30 mg 12/26/20 09:00 12/26/20 07:58 Aripiprazole 30 Mg Tablet PO 30 mg DAILY YOLANDA Administration Cephalexin HCl 500 mg 12/25/20 21:00 12/26/20 07:59 Cephalexin 500 Mg Capsule PO 500 mg Q12H YOLANDA Administration Diltiazem HCl 120 mg 12/26/20 09:00 12/26/20 08:01 Diltiazem Hcl Cd 120 Mg Cap.Er.Deg PO 120 mg DAILY YOLANDA Administration Protocol Divalproex Sodium 500 mg 12/26/20 09:00 12/26/20 07:58 Divalproex Sodium Er 500 Mg Tab.Er.24h PO 500 mg DAILY YOLANDA Administration Divalproex Sodium 1,000 mg 12/25/20 21:00 12/25/20 20:43 Divalproex Sodium Er 500 Mg Tab.Er.24h PO 1,000 mg BEDTIME YOLANDA Administration Doxycycline Hyclate 100 mg 12/25/20 21:00 12/26/20 07:59 Doxycycline Hyclate 100 Mg Tablet PO 100 mg BID YOLANDA Administration Hydralazine HCl 10 mg 12/25/20 21:00 12/26/20 08:02 Hydralazine Hcl 10 Mg Tablet PO 10 mg BID [facility] Administration Protocol Furosemide 500 mg/ IV 50 mls @ 0.5 mls/hr 12/25/20 19:50 12/25/20 20:45 Miscellaneous Supplies IVCONT 5 mg/hr .Q24H YOLANDA 0.5 mls/hr Administration 5 MG/HR Isosorbide Dinitrate 5 mg 12/25/20 21:00 12/26/20 08:01 Isosorbide Dinitrate 5 Mg Tablet PO 5 mg BID [facility] Administration Protocol Magnesium Oxide 400 mg 12/26/20 08:30 12/26/20 07:58 Magnesium Oxide 400 Mg Tablet PO 400 mg BIDPC [facility] Administration Metoprolol Tartrate 50 mg 12/25/20 21:00 12/26/20 08:02 Metoprolol Tartrate 50 Mg Tablet PO 50 mg BID [facility] Administration Protocol Nitroglycerin 0.4 mg 12/25/20 22:53 Nitroglycerin 0.4 Mg Tab.Subl SUBLINGUAL Q5MX3 PRN Chest Pain Omeprazole 20 mg 12/26/20 06:30 12/26/20 05:52 Omeprazole 20 Mg Capsule. PO 20 mg DAILY@0630 [facility] Administration Pharmacy Consult 1 each 12/25/20 15:07 Consult Rx Perform Med Rec MISCELLANE ONCE PRN Consult order Prednisone 5 mg 12/26/20 16:40 Prednisone 5 Mg Tablet PO DAILY [facility] Rivaroxaban 15 mg 12/26/20 09:00 12/26/20 07:59 Rivaroxaban 15 Mg Tablet PO 15 mg DAILY [facility] Administration Sodium Chloride 3 ml 12/26/20 00:00 12/26/20 15:07 0.9 % Sodium Chloride Flush 3 Ml Syringe IVFLUSH Not Given QSHIFT [facility] Tacrolimus 2 mg 12/25/20 21:00 12/26/20 11:33 Tacrolimus 1 Mg Capsule PO 2 mg BID [facility] Administration Home Medications Medication Instructions Recorded Confirmed Last Taken Type aripiprazole 30 mg tablet 30 mg PO DAILY 08/13/20 12/25/20 12/24/20 History omeprazole 20 mg capsule,delayed 20 mg PO DAILY 08/13/20 12/25/20 12/24/20 History release tacrolimus 1 mg capsule, 2 mg PO BID 08/13/20 12/25/20 12/24/20 History immediate-release albuterol sulfate 90 mcg/actuation 2 puff INHALATION Q6H PRN 09/29/20 12/25/20 Unknown History aerosol inhaler Phospha 250 Neutral 1 tab PO DAILY 12/08/20 12/25/20 12/24/20 History divalproex [Depakote ER] 1,000 mg PO BEDTIME 12/08/20 12/25/20 12/24/20 History divalproex [Depakote ER] 500 mg PO DAILY 12/08/20 12/25/20 12/24/20 History diltiazem HCl [Cardizem LA] 1 tab PO DAILY 12/25/20 12/25/20 12/24/20 History Physical Exam Vital Signs: Last Vital Signs Temp 98.5 F 12/26/20 15:46 Pulse 82 12/26/20 15:46 Resp 18 12/26/20 15:46 BP 150/100 H 12/26/20 15:46 Pulse Ox 96 12/26/20 15:46 Body Mass Index 29.2 Const General: cooperative, comfortable and no acute distress Orientation/consciousness: oriented to person, oriented to place and oriented to time Resp Effort & Inspection: normal respiratory effort Auscultation: clear to auscultation bilaterally Cardio Jugular venous distension: JVD Heart sounds: S1 normal heart sound present and S2 normal heart sound present GI Other: The renal graft is without tenderness. Inspection: Yes normal to inspection Auscultation: normal bowel sounds Neuro General: oriented to person, oriented to place and oriented to time Extrem Other: 2-3+ LE Edema Psych Appearance: grossly normal Results Lab Results Result Diagrams: 12/26/20 06:33 12/26/20 06:33 Lab results: Chemistry 12/25/20 12/26/20 16:04 06:33 Sodium 145 141 Potassium 4.8 4.6 Carbon Dioxide 30 H 28 BUN 36 H 38 H Creatinine 1.59 H 1.76 H Calcium 9.2 8.9 Hematology 12/25/20 12/26/20 16:04 06:33 WBC 9.9 10.7 Hgb 12.2 L 11.2 L Plt Count 107 L 112 L Urinalysis 12/25/20 18:04 Urine Color YELLOW Urine Appearance CLEAR Urine pH 8.0 Ur Specific [place] 1.020 Urine Protein 2+ H Urine Glucose (UA) NEG Urine Ketones NEG Urine Blood NEG Urine Nitrite NEG Ur Leukocyte Esterase NEG Urine RBC 0-2 Urine WBC 0 Ur Squamous Epith Cells NONE Assessment and Plan (1) Atrial fibrillation with rapid ventricular response: Status: Acute (2) Heart failure with reduced ejection fraction: Status: Acute (3) Polysubstance abuse: Status: Acute (4) ANA (acute kidney injury): Status: Acute (5) Renal transplant disorder: Status: Acute Mr Adame has ESRD s/p DDKT with CKD of his graft BL Cr 1.5mg/dL which is a consequence of cocaine use (renal artery vasoconstriction) and chronic tacrolimus use leading to CNI toxicity. Cr is near baseline at 1.8mg/dL He does have significant LE edema I expect hish course to be complicated by ANA 2/2 nephrosarca, ischemic injury 2/2 cocaine. Plan: - c/w lasix gtt as you are - monitor UOP - renal panel daily - he should be immunosuppressed with Tac 2mg BID and Pred 5mg daily.
[2020-12-26] MEDS: predniSONE 5 MG TABLET PO (17:10)
[2020-12-26] MEDS: Furosemide 500 MG in Container,Empty 0 ML IVCONT (20:22)
[2020-12-26] MEDS: Divalproex Sodium ER 500 MG TAB.ER.24H 1000 MG PO (21:08)
[2020-12-27] VITALS (9 sets, daily range): BP systolic 129–155; BP diastolic 76–91; PULSE 71–83; RESP 16–20; TEMP 36.2–36.7; O2SAT 95–97
[2020-12-27] MEDS: Omeprazole 20 MG CAPSULE.DR PO (05:43)
[2020-12-27 06:37] LABS: MANUAL DIFF FLAG NO
[2020-12-27 07:04] LABS: Basophils Percent Auto 0.1 % (0-2); Eosinophils Absolute Auto 0.1 X10*3/uL (0.0-0.4); Eosinophils Percent Auto 0.7 % (0-4); Hematocrit 36.2 % (42-52); Hemoglobin 11.3 g/dl (14.0-18.0); Imm Gran Abs Auto 0.14 X10*3/uL (0.00-0.03); Imm Gran Pct Auto 1.7 % (0.0-0.4); Lymphocytes Absolute Auto 1.5 X10*3/uL (1.2-4.9); Lymphocytes Percent Auto 17.7 % (20-40); Mean Corpuscular HGB Conc 31.2 g/dl (31.0-36.0); Mean Corpuscular Hemoglobin 28.6 pg (27.0-33.0); Mean Corpuscular Volume 91.6 fL (80-98); Mean Platelet Volume 11.7 fL (9.4-12.4); Monocytes Absolute Auto 0.8 X10*3/uL (0.1-1.2); Monocytes Percent Auto 9.6 % (2-11); Neutrophils Absolute Auto 5.8 X10*3/uL (2.0-8.3); Neutrophils Percent Auto 70.2 % (45-73); Platelet Count 104 X10*3/uL (160-400); Red Blood Count 3.95 X10*6/uL (4.60-5.80); Red Cell Distribution Width 15.1 % (11.0-16.0); White Blood Count 8.3 X10*3/uL (4.8-10.8)
[2020-12-27 07:17] LABS: Anion Gap 14 (12-20); Blood Urea Nitrogen 40 mg/dL (9-16); Calcium 8.7 mg/dL (8.4-10.2); Carbon Dioxide 28 mmol/L (22-29); Chloride 101 mmol/L (96-108); Creatinine Clr Calc Pharmacy 43.2; Estimated Glomerular Filt Rate 36; Glucose Fasting 176 mg/dL (60-99); Magnesium 1.5 mg/dL (1.6-2.6); Potassium 4.3 mmol/L (3.3-5.1); Sodium 139 mmol/L (135-145)
[2020-12-27 07:29] LABS: B Type Natriuretic Peptide 501 pg/mL (<100)
[2020-12-27] MEDS: hydrALAZINE HCl 10 MG TABLET PO ×2 (07:40→17:01)
[2020-12-27] MEDS: Magnesium Oxide 400 MG TABLET PO ×2 (07:40→17:02)
[2020-12-27] MEDS: Isosorbide Dinitrate 5 MG TABLET PO ×2 (07:40→17:01)
[2020-12-27] MEDS: Divalproex Sodium ER 500 MG TAB.ER.24H PO (07:40)
[2020-12-27] MEDS: cephALEXin 500 MG CAPSULE PO ×2 (07:40→17:01)
[2020-12-27] MEDS: ARIPiprazole 30 MG TABLET PO (07:40)
[2020-12-27] MEDS: Metoprolol Tartrate 50 MG TABLET PO ×2 (07:41→17:02)
[2020-12-27] MEDS: dilTIAZem HCL CD 120 MG CAP.ER.DEG PO (07:41)
[2020-12-27] MEDS: predniSONE 5 MG TABLET PO (07:41)
[2020-12-27] MEDS: Rivaroxaban 15 MG TABLET PO (07:41)
[2020-12-27] MEDS: Furosemide 40 MG TABLET PO ×2 (08:10→17:02)
[2020-12-27] MEDS: Acetaminophen 325 MG TABLET 650 MG PO (08:12)
[2020-12-27] MEDS: Tacrolimus 1 MG CAPSULE 2 MG PO ×2 (09:27→17:10)
--- NOTE | 2020-12-27 09:56 | PM.CNGS ---
History of Present Illness Consult details Consult date: 12/27/20 Requesting physician: Rolando Jeffrey Narrative: Deshaun Adame is a 60-year-old male patient presenting with a left axillary abscess. He has a history of atrial fibrillation, congestive heart failure, polysubstance abuse, renal failure status post renal transplantation found to have a painful lump in the left axilla. He also complains of recent onset of shortness of breath. Patient presented to the emergency department and was noted to have an abscess which was incised and drained. Patient reports significant discomfort remaining in the axilla but does feel slightly improved. He is admitted to the medical service for antibiotics and management of his shortness of breath. He denies a previous infection in this location. He has an AV fistula in the left upper extremity which is not currently being used for dialysis. Review of Systems Review of Systems: Yes all other systems are reviewed and are negative Constitutional: Constitutional: Reports chills and Reports fever(s) Cardiovascular: Cardiovascular: Reports irregular heart rhythm and Reports dyspnea Respiratory: Respiratory: Reports chest congestion, Reports dyspnea and Denies wheezing Gastrointestinal: Gastrointestinal: Reports no additional gastrointestinal complaints Integumentary/Breasts: Skin/Breast: Reports as per HPI Hematologic/Lymphatic: Hematologic/Lymphatic: Reports lymphadenopathy Allergic/Immunologic: Allergic/Immunologic: Denies wheezing PMFSH Past Medical History Medical History Asthma Atrial fibrillation Bipolar disorder Cellulitis of left foot Cellulitis of left lower extremity Cocaine use Congestive heart failure DVT (deep venous thrombosis) Essential hypertension Gout Heart failure with reduced ejection fraction Hip osteoarthritis History of seizures Obesity Pacemaker PAF (paroxysmal atrial fibrillation) Polysubstance abuse Renal transplant recipient Second degree heart block Subdural hematoma Thrombocytopenia Tobacco abuse Unilateral primary osteoarthritis, left knee Urinary bladder cancer Family History Family History Father Prostate cancer Mother No problems noted. Brother Cancer Surgical History Surgical History Abscess of arm, left H/O cardiac radiofrequency ablation History of cardiac catheterization History of removal of cyst History of removal of cyst Kidney replaced by transplant Social History Social History Household Members: None Housing: Apartment Do you presently have visiting nurse or other home services: Yes ([facility]) Alcohol intake: never Smoking Status: Former smoker Tobacco Type: Cigarette Cigarettes Per Day: 1 Smoked in Last 30 Days: Yes Smoking Quit Date: unknown, pt states a few weeks ago Use of substances other than those prescribed or required for medical reasons: Yes Substance Use Type: Crack/Cocaine Last Used Substance Other:: pt states 3 weeks ago, tox screen 12/25 positive cocaine Currently Displaying Signs/Symptoms of Drug Intoxication Withdrawal: No Any prior treatment program specific to substance use: Yes ([place]) Have you been hit, kicked, punched, or otherwise hurt by someone within the past year? If so, by whom?: No Do you feel safe in your current relationship?: No Is there a partner from a previous relationship who is making you feel unsafe now?: No Are you made to feel afraid or neglected: No Advance Directives: Yes Advance Directives Information Provided: No Advance Directives on File: No Advance Directives Date on File: 12/25/20 Do you have thoughts of harming others: None Do you have a plan to hurt others: No Plan Recently lost weight without trying: No service: No Current occupational status: retired Meds Allergies Allergy/AdvReac Type Severity Reaction Status Date / Time diltiazem [From Cardizem] Allergy Unknown Dizziness Verified 11/05/20 12:06 indomethacin [Indocin] Allergy Unknown Unknown Verified 11/05/20 12:06 Active Medications: Current Medications Generic Name Dose Route Start Last Admin Trade Name Freq PRN Reason Stop Dose Admin Acetaminophen 650 mg 12/27/20 07:49 12/27/20 08:12 Acetaminophen 325 Mg Tablet PO 650 mg Q6H PRN Administration pain Albuterol Sulfate 2 puff 12/25/20 19:50 Albuterol Sulfate 90 Mcg 8 Gm Inhaler INHALE Q6H PRN Respiratory Distress Aripiprazole 30 mg 12/26/20 09:00 12/27/20 07:40 Aripiprazole 30 Mg Tablet PO 30 mg DAILY YOLANDA Administration Cephalexin HCl 500 mg 12/25/20 21:00 12/27/20 07:40 Cephalexin 500 Mg Capsule PO 500 mg Q12H YOLANDA Administration Diltiazem HCl 120 mg 12/26/20 09:00 12/27/20 07:41 Diltiazem Hcl Cd 120 Mg Cap.Er.Deg PO 120 mg DAILY YOLANDA Administration Protocol Divalproex Sodium 500 mg 12/26/20 09:00 12/27/20 07:40 Divalproex Sodium Er 500 Mg Tab.Er.24h PO 500 mg DAILY YOLANDA Administration Divalproex Sodium 1,000 mg 12/25/20 21:00 12/26/20 21:08 Divalproex Sodium Er 500 Mg Tab.Er.24h PO 1,000 mg BEDTIME YOLANDA Administration Doxycycline Hyclate 100 mg 12/25/20 21:00 12/27/20 07:40 Doxycycline Hyclate 100 Mg Tablet PO 100 mg BID YOLANDA Administration Furosemide 40 mg 12/27/20 09:00 12/27/20 08:10 Furosemide 40 Mg Tablet PO 40 mg BID@0900,1800 COUNTS INCLUDE 234 BEDS AT [facility] Administration Protocol Hydralazine HCl 10 mg 12/25/20 21:00 12/27/20 07:40 Hydralazine Hcl 10 Mg Tablet PO 10 mg BID YOLANDA Administration Protocol Isosorbide Dinitrate 5 mg 12/25/20 21:00 12/27/20 07:40 Isosorbide Dinitrate 5 Mg Tablet PO 5 mg BID YOLANDA Administration Protocol Magnesium Oxide 400 mg 12/26/20 08:30 12/27/20 07:40 Magnesium Oxide 400 Mg Tablet PO 400 mg BIDPC YOLANDA Administration Metoprolol Tartrate 50 mg 12/25/20 21:00 12/27/20 07:41 Metoprolol Tartrate 50 Mg Tablet PO 50 mg BID YOLANDA Administration Protocol Nitroglycerin 0.4 mg 12/25/20 22:53 Nitroglycerin 0.4 Mg Tab.Subl SUBLINGUAL Q5MX3 PRN Chest Pain Omeprazole 20 mg 12/26/20 06:30 12/27/20 05:43 Omeprazole 20 Mg Capsule.Dr PO 20 mg DAILY@0630 COUNTS [facility]CLUDE 234 BEDS AT [facility] Administration Pharmacy Consult 1 each 12/25/20 15:07 Consult Rx Perform Med Rec MISCELLANE ONCE PRN Consult order Prednisone 5 mg 12/26/20 16:40 12/27/20 07:41 Prednisone 5 Mg Tablet PO 5 mg DAILY YOLANDA Administration Rivaroxaban 15 mg 12/26/20 09:00 12/27/20 07:41 Rivaroxaban 15 Mg Tablet PO 15 mg DAILY YOLANDA Administration Sodium Chloride 3 ml 12/26/20 00:00 12/27/20 07:41 0.9 % Sodium Chloride Flush 3 Ml Syringe IVFLUSH Not Given QSHIFT COUNTS INCLUDE 234 BEDS AT THE [facility] Tacrolimus 2 mg 12/25/20 21:00 12/27/20 09:27 Tacrolimus 1 Mg Capsule PO 2 mg BID [facility]S [facility]CLUDE 234 BEDS AT THE [facility] Administration Home Medications Medication Instructions Recorded Confirmed Last Taken Type aripiprazole 30 mg tablet 30 mg PO DAILY 08/13/20 12/25/20 12/24/20 History omeprazole 20 mg capsule,delayed 20 mg PO DAILY 08/13/20 12/25/20 12/24/20 History release tacrolimus 1 mg capsule, 2 mg PO BID 08/13/20 12/25/20 12/24/20 History immediate-release albuterol sulfate 90 mcg/actuation 2 puff INHALATION Q6H PRN 09/29/20 12/25/20 Unknown History aerosol inhaler Phospha 250 Neutral 1 tab PO DAILY 12/08/20 12/25/20 12/24/20 History divalproex [Depakote ER] 1,000 mg PO BEDTIME 12/08/20 12/25/20 12/24/20 History divalproex [Depakote ER] 500 mg PO DAILY 12/08/20 12/25/20 12/24/20 History diltiazem HCl [Cardizem LA] 1 tab PO DAILY 12/25/20 12/25/20 12/24/20 History Physical Exam Vital Signs: Vital Signs: Last Vital Signs Temp 97.1 F 12/27/20 07:38 Pulse 77 12/27/20 07:41 Resp 18 12/27/20 07:38 BP 155/91 H 12/27/20 07:41 Pulse Ox 96 12/27/20 07:38 Body Mass Index 29.2 Const: General: cooperative, healthy appearing and comfortable Nutritional Appearance: well nourished Orientation/consciousness: patient oriented x3 Limitations: no limitations Resp: Effort & Inspection: normal respiratory effort GI: Inspection: Yes normal to inspection Skin: Other: Left axilla status post I and D x2 with packing in place. There is residual inflammation but no palpable abscess. The more anterior packing was removed and the more posterior packing advanced. A clean dressing was applied. No undrained abscess remains. Neuro: General: patient oriented x3 Extrem: Other: Left axillary abscess as noted above Results Labs Result diagrams: 12/27/20 06:09 12/27/20 06:09 Labs: Abnormal lab results 12/26/20 12/27/20 12/27/20 Range/Units 15:11 06:09 06:09 RBC 3.95 L (4.60-5.80) X10*6/uL Hgb 11.3 L (14.0-18.0) g/dl Hct 36.2 L (42-52) % Plt Count 104 L (160-400) X10*3/uL Immature Gran % (Auto) 1.7 H (0.0-0.4) % Lymph % (Auto) 17.7 L (20-40) % Abs Immat Gran (auto) 0.14 H (0.00-0.03) X10*3/uL BUN 40 H (9-16) mg/dL Creatinine 1.90 H (0.5-1.4) mg/dL Fasting Glucose 176 H (60-99) mg/dL Magnesium 1.5 L (1.6-2.6) mg/dL Troponin I High Sens 45.0 H (<3.5-35.0) ng/L B-Natriuretic Peptide (<100) pg/mL 12/27/20 Range/Units 06:09 RBC (4.60-5.80) X10*6/uL Hgb (14.0-18.0) g/dl Hct (42-52) % Plt Count (160-400) X10*3/uL Immature Gran % (Auto) (0.0-0.4) % Lymph % (Auto) (20-40) % Abs Immat Gran (auto) (0.00-0.03) X10*3/uL BUN (9-16) mg/dL Creatinine (0.5-1.4) mg/dL Fasting Glucose (60-99) mg/dL Magnesium (1.6-2.6) mg/dL Troponin I High Sens (<3.5-35.0) ng/L B-Natriuretic Peptide 501 H (<100) pg/mL Short CBC 12/27/20 Range/Units 06:09 WBC 8.3 (4.8-10.8) X10*3/uL Hgb 11.3 L (14.0-18.0) g/dl Hct 36.2 L (42-52) % Plt Count 104 L (160-400) X10*3/uL BMP 12/27/20 06:09 Sodium 139 Potassium 4.3 Chloride 101 Carbon Dioxide 28 BUN 40 H Creatinine 1.90 H Calcium 8.7 Urine 12/25/20 Range/Units 18:04 Urine Color YELLOW Urine Appearance CLEAR Urine pH 8.0 (5.0-8.0) Ur Specific [place] 1.020 (1.005-1.025) Urine Protein 2+ H (NEG-TRACE) MG/DL Urine Glucose (UA) NEG (NEG) MG/DL All other labs normal. Assessment and Plan (1) Abscess of axilla, left: Status: Acute 60-year-old male patient with multiple medical problems presenting with an abscess of the left axilla, probable suppurative lymphadenitis. He is status post incision and drainage in the emergency department. This appears to be adequate drainage with no residual abscess identified. The remaining packing can be removed tomorrow after which he may be able to shower with dressing changes on a daily basis. He should follow up in our office between 1-2 weeks after discharge.
--- NOTE | 2020-12-27 10:19 | P.PNIM_ITS ---
Subjective Subjective Date of Service: 12/27/20 Interval History: shortness of breath and edema much better, severe pain in left axilla at i and d site Cardiovascular Cardiovascular: Reports no additional cardiovascular complaints Gastrointestinal Gastrointestinal: Reports no additional gastrointestinal complaints Physical Exam Vital Signs: Vital Signs: Last Vital Signs Temp 97.1 F 12/27/20 07:38 Pulse 77 12/27/20 07:41 Resp 18 12/27/20 07:38 BP 155/91 H 12/27/20 07:41 Pulse Ox 96 12/27/20 07:38 Body Mass Index 29.2 General: AO X 3, some duval Resp: CTA bilateral CVS: S1,S2,RRR, 1+ edema GI: soft, non tender, non distended Neuro: motor grossly intact Psych: appropriate affect skin: left axilla abscess s/p i an d Objective Data Current Medications Generic Name Dose Route Start Last Admin Trade Name Freq PRN Reason Stop Dose Admin Acetaminophen 650 mg 12/27/20 07:49 12/27/20 08:12 Acetaminophen 325 Mg Tablet PO 650 mg Q6H PRN Administration pain Albuterol Sulfate 2 puff 12/25/20 19:50 Albuterol Sulfate 90 Mcg 8 Gm Inhaler INHALE Q6H PRN Respiratory Distress Aripiprazole 30 mg 12/26/20 09:00 12/27/20 07:40 Aripiprazole 30 Mg Tablet PO 30 mg DAILY YOLANDA Administration Cephalexin HCl 500 mg 12/25/20 21:00 12/27/20 07:40 Cephalexin 500 Mg Capsule PO 500 mg Q12H YOLANDA Administration Diltiazem HCl 120 mg 12/26/20 09:00 12/27/20 07:41 Diltiazem Hcl Cd 120 Mg Cap.Er.Deg PO 120 mg DAILY YOLANDA Administration Protocol Divalproex Sodium 500 mg 12/26/20 09:00 12/27/20 07:40 Divalproex Sodium Er 500 Mg Tab.Er.24h PO 500 mg DAILY YOLANDA Administration Divalproex Sodium 1,000 mg 12/25/20 21:00 12/26/20 21:08 Divalproex Sodium Er 500 Mg Tab.Er.24h PO 1,000 mg BEDTIME YOLANDA Administration Doxycycline Hyclate 100 mg 12/25/20 21:00 12/27/20 07:40 Doxycycline Hyclate 100 Mg Tablet PO 100 mg BID YOLANDA Administration Furosemide 40 mg 12/27/20 09:00 12/27/20 08:10 Furosemide 40 Mg Tablet PO 40 mg BID@0900,1800 [facility] Administration Protocol Hydralazine HCl 10 mg 12/25/20 21:00 12/27/20 07:40 Hydralazine Hcl 10 Mg Tablet PO 10 mg BID [facility] Administration Protocol Isosorbide Dinitrate 5 mg 12/25/20 21:00 12/27/20 07:40 Isosorbide Dinitrate 5 Mg Tablet PO 5 mg BID [facility] Administration Protocol Magnesium Oxide 400 mg 12/26/20 08:30 12/27/20 07:40 Magnesium Oxide 400 Mg Tablet PO 400 mg BIDPC [facility] Administration Metoprolol Tartrate 50 mg 12/25/20 21:00 12/27/20 07:41 Metoprolol Tartrate 50 Mg Tablet PO 50 mg BID [facility] Administration Protocol Nitroglycerin 0.4 mg 12/25/20 22:53 Nitroglycerin 0.4 Mg Tab.Subl SUBLINGUAL Q5MX3 PRN Chest Pain Omeprazole 20 mg 12/26/20 06:30 12/27/20 05:43 Omeprazole 20 Mg Capsule.Dr PO 20 mg DAILY@0630 [facility] Administration Pharmacy Consult 1 each 12/25/20 15:07 Consult Rx Perform Med Rec MISCELLANE ONCE PRN Consult order Prednisone 5 mg 12/26/20 16:40 12/27/20 07:41 Prednisone 5 Mg Tablet PO 5 mg DAILY [facility] Administration Rivaroxaban 15 mg 12/26/20 09:00 12/27/20 07:41 Rivaroxaban 15 Mg Tablet PO 15 mg DAILY [facility] Administration Sodium Chloride 3 ml 12/26/20 00:00 12/27/20 07:41 0.9 % Sodium Chloride Flush 3 Ml Syringe IVFLUSH Not Given QSHIFT [facility] Tacrolimus 2 mg 12/25/20 21:00 12/27/20 09:27 Tacrolimus 1 Mg Capsule PO 2 mg BID [facility] Administration Labs CBC & Chem 7: 12/27/20 06:09 12/27/20 06:09 Microbiology Microbiology Results: Microbiology 12/25/20 16:04 Blood - Venous Blood Culture - Preliminary No growth after 24 hours. 12/25/20 16:04 Blood - Venous Blood Culture - Preliminary No growth after 24 hours. Assessment and Plan (1) Acute systolic (congestive) heart failure: Status: Acute (2) Atrial fibrillation with rapid ventricular response: Status: Acute Assessment and Plan: sob due to acute on chronic chf with reduced EF, thought to be tachy or cocaine related significant improvement, will change to po lasix today 40mg bid monitor electrolytes cardio appreciated continue beta sagar, hydralazine, isodril afib with rvr cardizem, lopressor, xarelto may not be good candidate for JUAN M/CV due to compliance issues renal transplant tacrolimus, prednisone nephro appreciated axillary abscess keflex, doxy s/p i and d in ED surgery appreciated, packing to be removed tomorrow, then daily dressing changes, and outpatient follow up in 1-2 weeks biploar depakote
--- NOTE | 2020-12-27 11:57 | PM.PNCARD ---
Subjective Subjective Date of Service: 12/27/20 Interval history: Feeling better. Physical Exam Vital Signs: Last Vital Signs Temp 97.1 F 12/27/20 11:48 Pulse 78 12/27/20 11:48 Resp 16 12/27/20 11:48 BP 130/81 12/27/20 11:48 Pulse Ox 96 12/27/20 11:48 Body Mass Index 29.2 GENERAL APPEARANCE: in no acute distress, well developed, well nourished. HEENT: unremarkable. HEAD: normocephalic, atraumatic. NECK/THYROID: no carotid bruit, no jugular venous distention. SKIN: Left axillary abscess drained and dressing in place. HEART: no murmurs, irregular rate and rhythm, S1, S2 normal. LUNGS: clear to auscultation bilaterally. ABDOMEN: normal, bowel sounds present, soft, nontender, nondistended. EXTREMITIES: no clubbing, cyanosis. 1+ edema lower extremities PERIPHERAL PULSES: equal. NEUROLOGIC: nonfocal, alert and oriented. PSYCH: mood/affect full range. Results Labs and Meds Result diagrams: 12/27/20 06:09 12/27/20 06:09 Lab results: Laboratory Results - last 24 hr 12/26/20 12/27/20 12/27/20 15:11 06:09 06:09 WBC 8.3 RBC 3.95 L Hgb 11.3 L Hct 36.2 L MCV 91.6 MCH 28.6 MCHC 31.2 RDW 15.1 Plt Count 104 L MPV 11.7 Immature Gran % (Auto) 1.7 H Neut % (Auto) 70.2 Lymph % (Auto) 17.7 L [place] % (Auto) 9.6 Eos % (Auto) 0.7 Baso % (Auto) 0.1 Lymph # (Auto) 1.5 [place] # (Auto) 0.8 Eos # (Auto) 0.1 Baso # (Auto) 0.0 Abs Immat Gran (auto) 0.14 H Absolute Neuts (auto) 5.8 Absolute Nucleated RBC 0.000 Nucleated RBC % (auto) 0.0 Sodium 139 Potassium 4.3 Chloride 101 Carbon Dioxide 28 Anion Gap 14 BUN 40 H Creatinine 1.90 H Estim Creat Clear Calc 43.2 Estimated GFR 36 Fasting Glucose 176 H Calcium 8.7 Magnesium 1.5 L Troponin I High Sens 45.0 H B-Natriuretic Peptide 12/27/20 06:09 WBC RBC Hgb Hct MCV MCH MCHC RDW Plt Count MPV Immature Gran % (Auto) Neut % (Auto) Lymph % (Auto) [place] % (Auto) Eos % (Auto) Baso % (Auto) Lymph # (Auto) [place] # (Auto) Eos # (Auto) Baso # (Auto) Abs Immat Gran (auto) Absolute Neuts (auto) Absolute Nucleated RBC Nucleated RBC % (auto) Sodium Potassium Chloride Carbon Dioxide Anion Gap BUN Creatinine Estim Creat Clear Calc Estimated GFR Fasting Glucose Calcium Magnesium Troponin I High Sens B-Natriuretic Peptide 501 H Progress Note: A&P Assessment and plan (1) Atrial fibrillation with rapid ventricular response: Status: Acute (2) Polysubstance abuse: Status: Acute (3) Acute on chronic systolic heart failure: Status: Acute Assessment and Plan: 50-year-old gentleman with new diagnosis of systolic heart failure. He has been cocaine positive on previous admission and this admission. He is admitted with anxiety abscess which has been drained and improved. He was given Lasix drip and has been off that. I think he should go home on 40 mg p.o. b.i.d. Lasix. Continue same medications otherwise. He has been taking metoprolol and Cardizem for his atrial fibrillation. Ideally both medication should not be used in him. With his cocaine abuse beta-blockers are somewhat controversial use. Having said that he has not presented to us with hypertensive issues. He has AFib with RVR and need some attention. Continue same medications for now and he needs follow up with us as outpatient. Thank you for allowing me to participate in the care of your patient. Please feel free to contact me if you have any questions. Fall Risk Details Current Medications: Current Medications Generic Name Dose Route Start Last Admin Trade Name Freq PRN Reason Stop Dose Admin Acetaminophen 650 mg 12/27/20 07:49 12/27/20 08:12 Acetaminophen 325 Mg Tablet PO 650 mg Q6H PRN Administration pain Albuterol Sulfate 2 puff 12/25/20 19:50 Albuterol Sulfate 90 Mcg 8 Gm Inhaler INHALE Q6H PRN Respiratory Distress Aripiprazole 30 mg 12/26/20 09:00 12/27/20 07:40 Aripiprazole 30 Mg Tablet PO 30 mg DAILY YOLANDA Administration Cephalexin HCl 500 mg 12/25/20 21:00 12/27/20 07:40 Cephalexin 500 Mg Capsule PO 500 mg Q12H YOLANDA Administration Diltiazem HCl 120 mg 12/26/20 09:00 12/27/20 07:41 Diltiazem Hcl Cd 120 Mg Cap.Er.Deg PO 120 mg DAILY [facility] Administration Protocol Divalproex Sodium 500 mg 12/26/20 09:00 12/27/20 07:40 Divalproex Sodium Er 500 Mg Tab.Er.24h PO 500 mg DAILY YOLANDA Administration Divalproex Sodium 1,000 mg 12/25/20 21:00 12/26/20 21:08 Divalproex Sodium Er 500 Mg Tab.Er.24h PO 1,000 mg BEDTIME YOLANDA Administration Doxycycline Hyclate 100 mg 12/25/20 21:00 12/27/20 07:40 Doxycycline Hyclate 100 Mg Tablet PO 100 mg BID YOLANDA Administration Furosemide 40 mg 12/27/20 09:00 12/27/20 08:10 Furosemide 40 Mg Tablet PO 40 mg BID@0900,1800 [facility] Administration Protocol Hydralazine HCl 10 mg 12/25/20 21:00 12/27/20 07:40 Hydralazine Hcl 10 Mg Tablet PO 10 mg BID [facility] Administration Protocol Isosorbide Dinitrate 5 mg 12/25/20 21:00 12/27/20 07:40 Isosorbide Dinitrate 5 Mg Tablet PO 5 mg BID [facility] Administration Protocol Magnesium Oxide 400 mg 12/27/20 17:30 [facility] Tartrate 50 mg 12/25/20 21:00 12/27/20 07:41 Metoprolol Tartrate 50 Mg Tablet PO 50 mg BID [facility] Administration Protocol Nitroglycerin 0.4 mg 12/25/20 22:53 Nitroglycerin 0.4 Mg Tab.Subl SUBLINGUAL [id number] PRN Chest Pain Omeprazole 20 mg 12/26/20 06:30 12/27/20 05:43 Omeprazole 20 Mg Capsule.Dr PO 20 mg DAILY@0630 [facility] Administration Pharmacy Consult 1 each 12/25/20 15:07 Consult Rx Perform Med Rec MISCELLANE ONCE PRN Consult order Prednisone 5 mg 12/26/20 16:40 12/27/20 07:41 Prednisone 5 Mg Tablet PO 5 mg DAILY [facility] Administration Rivaroxaban 15 mg 12/26/20 09:00 12/27/20 07:41 Rivaroxaban 15 Mg Tablet PO 15 mg DAILY YOLANDA Administration Sodium Chloride 3 ml 12/26/20 00:00 12/27/20 07:41 0.9 % Sodium Chloride Flush 3 Ml Syringe IVFLUSH Not Given QSHIFT YOLANDA Tacrolimus 2 mg 12/25/20 21:00 12/27/20 09:27 Tacrolimus 1 Mg Capsule PO 2 mg BID YOLANDA Administration Time Spent With Patient Time: Total time spent is greater than 50% in coordination of care (as documented) at patient's floor/unit and/or counseling patient: Time with patient: 15 - 24 minutes
--- NOTE | 2020-12-27 12:18 | P.PNNP_ITS ---
Subjective Subjective Date of Service: 12/27/20 Interval history: Feels so much better in good spirits Cr up to 1.9, we discussed the cocaine in his system. he says it was an accident, he smoked a joint laced with crack Physical Exam Vital Signs: Vital Signs: Last Vital Signs Temp 97.1 F 12/27/20 11:48 Pulse 78 12/27/20 11:48 Resp 16 12/27/20 11:48 BP 130/81 12/27/20 11:48 Pulse Ox 96 12/27/20 11:48 Body Mass Index 29.2 Const: General: cooperative, comfortable and no acute distress Orientation/consciousness: oriented to person, oriented to place and oriented to time Resp: Effort & Inspection: normal respiratory effort Auscultation: clear to auscultation bilaterally Cardio: Jugular venous distension: JVD Heart sounds: S1 normal heart sound present and S2 normal heart sound present GI: Other: The renal graft is without tenderness. Inspection: Yes normal to inspection Auscultation: normal bowel sounds Neuro: General: oriented to person, oriented to place and oriented to time Extrem: Other: 3+ edema improved to 1+ Psych: Appearance: grossly normal Objective Data Labs CBC & Chem 7: 12/27/20 06:09 12/27/20 06:09 Labs: Laboratory Results - last 24 hr 12/26/20 12/27/20 12/27/20 15:11 06:09 06:09 WBC 8.3 RBC 3.95 L Hgb 11.3 L Hct 36.2 L MCV 91.6 MCH 28.6 MCHC 31.2 RDW 15.1 Plt Count 104 L MPV 11.7 Immature Gran % (Auto) 1.7 H Neut % (Auto) 70.2 Lymph % (Auto) 17.7 L [place] % (Auto) 9.6 Eos % (Auto) 0.7 Baso % (Auto) 0.1 Lymph # (Auto) 1.5 [place] # (Auto) 0.8 Eos # (Auto) 0.1 Baso # (Auto) 0.0 Abs Immat Gran (auto) 0.14 H Absolute Neuts (auto) 5.8 Absolute Nucleated RBC 0.000 Nucleated RBC % (auto) 0.0 Sodium 139 Potassium 4.3 Chloride 101 Carbon Dioxide 28 Anion Gap 14 BUN 40 H Creatinine 1.90 H Estim Creat Clear Calc 43.2 Estimated GFR 36 Fasting Glucose 176 H Calcium 8.7 Magnesium 1.5 L Troponin I High Sens 45.0 H B-Natriuretic Peptide 12/27/20 06:09 WBC RBC Hgb Hct MCV MCH MCHC RDW Plt Count MPV Immature Gran % (Auto) Neut % (Auto) Lymph % (Auto) [place] % (Auto) Eos % (Auto) Baso % (Auto) Lymph # (Auto) [place] # (Auto) Eos # (Auto) Baso # (Auto) Abs Immat Gran (auto) Absolute Neuts (auto) Absolute Nucleated RBC Nucleated RBC % (auto) Sodium Potassium Chloride Carbon Dioxide Anion Gap BUN Creatinine Estim Creat Clear Calc Estimated GFR Fasting Glucose Calcium Magnesium Troponin I High Sens B-Natriuretic Peptide 501 H Microbiology Microbiology Results: Microbiology 12/25/20 16:04 Blood - Venous Blood Culture - Preliminary No growth after 24 hours. 12/25/20 16:04 Blood - Venous Blood Culture - Preliminary No growth after 24 hours. 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 Cr is near baseline at 1.8mg/dL He does have significant LE edema Cr stable with diuresis to euvolemia. Cr stable despite cocaine use. Plan: - agree with transition to PO lasix 40mg BID -c/w Tac 2mg BID and Pred 5mg daily. Time Spent With Patient Time: Total time spent is greater than 50% in coordination of care (as documented) at patient's floor/unit and/or counseling patient:
--- NOTE | 2020-12-27 13:32 | P.DS_ITS ---
DS: Providers Provider Date of Service: 12/27/20 Date of admission: 12/25/20 18:08 Primary care physician: Vicenta Sumner MD Consults: 12/25/20 19:50 Consult to Cardiology Routine Consulting Provider: [place] Reason for consultation: afib rvr, chf Consult to Nephrology Routine Consulting Provider: oCrnell Holly Reason for consultation: renal transplant here with chf 12/27/20 09:37 Consult to General Surgery Routine Consulting Provider: Pa Plasencia Reason for consultation: left axilla abscess s/p I and D in ED DS: Diagnosis Discharge Diagnosis (1) Atrial fibrillation with rapid ventricular response: Status: Acute (2) Heart failure with reduced ejection fraction: Status: Acute (3) Polysubstance abuse: Status: Acute (4) ANA (acute kidney injury): Status: Acute (5) Renal transplant disorder: Status: Acute DS: Medications Discharge Medications Home Medications: Home Medications Medication Instructions Recorded Confirmed aripiprazole 30 mg tablet 30 mg PO DAILY 08/13/20 12/25/20 omeprazole 20 mg capsule,delayed 20 mg PO DAILY 08/13/20 12/25/20 release tacrolimus 1 mg capsule, 2 mg PO BID 08/13/20 12/25/20 immediate-release albuterol sulfate 90 mcg/actuation 2 puff INHALATION Q6H PRN 09/29/20 12/25/20 aerosol inhaler Phospha 250 Neutral 1 tab PO DAILY 12/08/20 12/25/20 divalproex [Depakote ER] 1,000 mg PO BEDTIME 12/08/20 12/25/20 divalproex [Depakote ER] 500 mg PO DAILY 12/08/20 12/25/20 Cardizem LA 1 tab PO DAILY 12/25/20 12/25/20 Previous Rx's Medication Instructions Recorded acetaminophen 650 mg 650 mg PO Q12H PRN 15 Days #30 tab 09/29/20 tablet,extended release rivaroxaban 15 mg tablet 15 mg PO DAILY #90 tab 10/29/20 hydralazine 10 mg PO BID #120 tab 12/17/20 isosorbide dinitrate 5 mg PO BID #120 tab 12/17/20 magnesium oxide 400 mg PO BIDPC #60 tab 12/17/20 metoprolol tartrate 50 mg PO BID #60 tab 12/17/20 cephalexin 500 mg PO Q12H #10 cap 12/27/20 doxycycline hyclate 100 mg PO BID #10 tab 12/27/20 furosemide 40 mg PO BID@0900,1800 #60 tab 12/27/20 prednisone 5 mg PO DAILY #30 tab 12/27/20 DS: Summary Hospital Course Hospital Course: patient was admitted for acute on chronic chf with reduced EF thought to be secondary to tachycardia vs cocaine, although ischemia has not been ruled out. he was treated with lasix drip at 5cc/hr for about 48hrs and was about 4L negative, his shortness of breath and edema significantly improved, his BNP improved from 1681 to 501 at discharge, and he was able to be switched to oral lasix 40mg bid. he was also seen for a left axillary abscess, it was I and Ded in the ED. cultures have been negative. he was given keflex and doxy. he was seen by surgery who adjusted his packing, plan for visiting nurses to remove packing 12/28 followed by daily dressings, patient should follow up with surgery as outpatient, he will continue 5 more days of antibiotics. Time Spent with Patient Time attestation: Total time spent providing and/or coordinating discharge ser vices: Discharge coordination time: Greater than 30 minutes Physical Exam Vital Signs: Vital Signs: Last Vital Signs Temp 97.1 F 12/27/20 11:48 Pulse 78 12/27/20 11:48 Resp 16 12/27/20 11:48 BP 130/81 12/27/20 11:48 Pulse Ox 96 12/27/20 11:48 Body Mass Index 29.2 General: AO X 3, no acute distress Resp: CTA bilateral CVS: S1,S2,RRR, 1+ edema GI: soft, non tender, non distended Neuro: motor grossly intact Psych: appropriate affect left axilla abscess DS: Data Data Completed and Pending Labs on day of discharge: Laboratory Results - last 24 hr 12/26/20 12/27/20 12/27/20 15:11 06:09 06:09 WBC 8.3 RBC 3.95 L Hgb 11.3 L Hct 36.2 L MCV 91.6 MCH 28.6 MCHC 31.2 RDW 15.1 Plt Count 104 L MPV 11.7 Immature Gran % (Auto) 1.7 H Neut % (Auto) 70.2 Lymph % (Auto) 17.7 L [place] % (Auto) 9.6 Eos % (Auto) 0.7 Baso % (Auto) 0.1 Lymph # (Auto) 1.5 [place] # (Auto) 0.8 Eos # (Auto) 0.1 Baso # (Auto) 0.0 Abs Immat Gran (auto) 0.14 H Absolute Neuts (auto) 5.8 Absolute Nucleated RBC 0.000 Nucleated RBC % (auto) 0.0 Sodium 139 Potassium 4.3 Chloride 101 Carbon Dioxide 28 Anion Gap 14 BUN 40 H Creatinine 1.90 H Estim Creat Clear Calc 43.2 Estimated GFR 36 Fasting Glucose 176 H Calcium 8.7 Magnesium 1.5 L Troponin I High Sens 45.0 H B-Natriuretic Peptide 12/27/20 06:09 WBC RBC Hgb Hct MCV MCH MCHC RDW Plt Count MPV Immature Gran % (Auto) Neut % (Auto) Lymph % (Auto) [place] % (Auto) Eos % (Auto) Baso % (Auto) Lymph # (Auto) [place] # (Auto) Eos # (Auto) Baso # (Auto) Abs Immat Gran (auto) Absolute Neuts (auto) Absolute Nucleated RBC Nucleated RBC % (auto) Sodium Potassium Chloride Carbon Dioxide Anion Gap BUN Creatinine Estim Creat Clear Calc Estimated GFR Fasting Glucose Calcium Magnesium Troponin I High Sens B-Natriuretic Peptide 501 H Preliminary micro results at discharge 12/25/20 16:04 Blood Culture - Preliminary Blood - Venous No growth after 24 hours. 12/25/20 16:04 Blood Culture - Preliminary Blood - Venous No growth after 24 hours. Discharge Plan Discharge Patient Disposition: Home Health Service Discharge Diagnosis: chf Referrals: Pa Plasencia MD [Physician] - 1 Week Po,Vicenta Shelton MD [Primary Care Provider] - 1 Week Discharge Medications: New furosemide 40 mg Tablet 40 mg PO BID@0900,1800 Qty: 60 RF: 0 prednisone 5 mg Tablet 5 mg PO DAILY Qty: 30 RF: 0 cephalexin 500 mg Capsule 500 mg PO Q12H Qty: 10 RF: 0 doxycycline hyclate 100 mg Tablet 100 mg PO BID Qty: 10 RF: 0 Continued divalproex [Depakote ER] 500 mg Tablet Extended Release 24 Hr 500 mg PO DAILY RF: 0 divalproex [Depakote ER] 500 mg Tablet Extended Release 24 Hr 1,000 mg PO BEDTIME RF: 0 Phospha 250 Neutral 250 mg Tablet 1 tab PO DAILY RF: 0 hydralazine 10 mg Tablet 10 mg PO BID Qty: 120 RF: 0 magnesium oxide 400 mg (241.3 mg magnesium) Tablet 400 mg PO BIDPC Qty: 60 RF: 0 metoprolol tartrate 50 mg Tablet 50 mg PO BID Qty: 60 RF: 0 isosorbide dinitrate 5 mg Tablet 5 mg PO BID Qty: 120 RF: 0 Cardizem LA 120 mg tablet extended release 24 hr 1 tab PO DAILY RF: 0 omeprazole 20 mg capsule,delayed release(DR/EC) 20 mg PO DAILY RF: 0 aripiprazole [Abilify] 30 mg tablet 30 mg PO DAILY RF: 0 tacrolimus [Prograf] 1 mg capsule 2 mg PO BID RF: 0 albuterol sulfate 90 mcg/actuation HFA aerosol inhaler 2 puff inhalation Q6H PRN (Reason: Respiratory Distress) RF: 0 acetaminophen [Tylenol Arthritis Pain] 650 mg tablet extended release 650 mg PO Q12H PRN (Reason: pain) 15 Days Qty: 30 RF: 0 Xarelto 15 mg tablet 15 mg PO DAILY Qty: 90 RF: 4 Discontinued furosemide 40 mg Tablet 40 mg PO DAILY Qty: 30 RF: 0 Discharge Orders: Discharge Order (Routine); Ordered 12/27/20 Ordered By: Rolando Jeffrey Diet: advance to usual diet Activity on Discharge: As tolerated Stand Alone Forms: Patient Portal Discharge page Care Plan Goals: recovery Health Concerns: chf, abscess Plan of Treatment: 5 days antibiotics, The remaining packing can be removed tomorrow after which he may be able to shower with dressing changes on a daily basis. He should follow up with surgery between 1-2 weeks after discharge. lasix increased to 40mg bid, follow up with cardio and nephro Assessment: see above
--- NOTE | 2020-12-27 14:27 | MHC.CM.PN ---
CM SPOKE TO [facility] CLASSIFIED ADVERTISING SUPERVISOR STAFF [phone] WHO REPORT CONCERN THAT THE PT MAY NEED TO BE SEEN BY [facility] OR AT LEAST NEED A RESPITE STAY. CM EXPLAINED THAT THE PT DID NOT PRESENT WITH ANYTHING THAT WOULD INDICATE A [facility] EVAL HOWEVER A CARE TEAM CONSULT WAS REQUESTED TO ENSURE PT DID NOT NEED ANY FURTHER SUPPORT. THE CLASSIFIED ADVERTISING SUPERVISOR STAFF MEMBER WILL CONTACT PTS PRIMARY CM AT [facility], [place], AND INFORM HER OF PTS CURRENT STATUS AND PENDING DC. [facility] CM AND [facility] WILL RESUME DISCUSSION ONCE PT HAS BEEN SEEN BY CARE TEAM AND [place]INE HAS BEEN UPDATED.
--- NOTE | 2020-12-27 16:03 | MHC.CARE ---
CARE team consult received for pt admitted to [facility] for medical treatment. Mechelle from Case Management followed up re: [facility] strongly recommending that pt discharge from medical floor to a CCS/respite program. It was discussed that pt is denying experiencing any acute or problematic symptoms of behavioral health concerns at this time, thus not warranting the need for a full crisis evaluation which would be required in order for pt to be placed at a respite program. Given this information, pt will be recommended to follow up with his outpatient providers and contact the mobile crisis team ([facility]) for support as needed.
--- NOTE | 2020-12-27 16:38 | MHC.CM.PN ---
MISAEL spoke to [facility] worker Tahira [phone], to discuss pts DC plan. After several discussions and consultation with the CARE team, pt will discharge home with resumption of his VNA services through [facility]. MISAEL called pts VNA ([phone]) and spoke to Debora. Debora is aware the pt is going home today and needs wound care at DC. Debora reports they usually see pt in the morning around 1000 hrs and then again between 1700 and 1800 hours to give him his meds. She reports they will not be able to resume services until tomorrow morning. Per discussion with VNA, pt will have his evening medications before DC as this will be very close to the time the VNA administers them. Tahira at [facility] reported a [facility] staff member would pick pt up and will arrive around 1700 hours. pt is aware and agreeable to DC plan. Pt discharging home today with resumption of [facility] and [facility] supports [facility] to transport
[2020-12-27] MEDS: Divalproex Sodium ER 500 MG TAB.ER.24H 1000 MG PO (17:01)
[2020-12-28 04:17] LABS: Tacrolimus Prograf 13.7 mcg/L
== END 2020-12-27 18:00 | disposition home health service (06) | DRG 194 ==
LOC: HO.ED 17:39 → HO.IMC 18:47
PROVIDERS: Hospitalist; Physician Assistant; Admitting Provider Internal Medicine; Emergency Provider Emergency Medicine Emergency Medical Services; PCP Internal Medicine; Visit Provider Internal Medicine
DX: I13.0 Hypertensive heart and chronic kidney disease with heart failure and stage 1 through stage 4 chronic kidney disease, or unspecified chronic kidney disease (principal); N17.9 Acute kidney failure, unspecified; F20.0 Paranoid schizophrenia; Z79.01 Long term (current) use of anticoagulants; Z94.0 Kidney transplant status; L02.412 Cutaneous abscess of left axilla; I50.21 Acute systolic (congestive) heart failure; I50.23 Acute on chronic systolic (congestive) heart failure; Z95.0 Presence of cardiac pacemaker; T45.1X5A Adverse effect of antineoplastic and immunosuppressive drugs, initial encounter; Y92.9 Unspecified place or not applicable; F19.10 Other psychoactive substance abuse, uncomplicated; F17.210 Nicotine dependence, cigarettes, uncomplicated; Z71.6 Tobacco abuse counseling; N18.9 Chronic kidney disease, unspecified; I48.91 Unspecified atrial fibrillation; I45.10 Unspecified right bundle-branch block; Z20.822 Contact with and (suspected) exposure to COVID-19; Z79.899 Other long term (current) drug therapy
CPT/HCPCS: 0241U; 36415; 71045; 80048; 80076; 80197; 80320; 81001; 83605; 83735; 83880; 84145; 84484; 85025; 85610; 85730; 87040; 93005; 99285; J1940

== ENCOUNTER 2020-12-29 13:49 | Outpatient (REF) | payer OTHER, SELFPAY ==
[2020-12-29 14:10] LABS: COVID-19 Test Negative (Negative)
== END 2020-12-29 13:50 | disposition home or self-care (01) ==
LOC: HO.LAB 13:49
PROVIDERS: Visit Provider Internal Medicine
DX: Z20.822 Contact with and (suspected) exposure to COVID-19 (principal)
CPT/HCPCS: 36415; 87635; C9803

== ENCOUNTER 2020-12-30 14:00 | Emergency (ER) | payer OTHER, SELFPAY ==
--- NOTE | ~2020-12-30 | XR_ITS ---
EXAMINATION: XR LUMBOSACRAL SPINE CLINICAL INFORMATION: Central back pain radiating down leg COMPARISON: May 15, 2008 TECHNIQUE: Three views of the lumbosacral spine. FINDINGS: There are 5 nonrib-bearing lumbar vertebra. No acute fracture, spondylolisthesis, or spondylolysis is evident. There is multilevel degenerative spurring present. The disc spaces are generally maintained. No destructive bony lesion identified. There is a sclerotic region seen about the superior endplate of L3 which may be related to Schmorl's node. There there is vacuum disc phenomena seen at the L4-L5 level. Is mild scoliosis which may be positional in nature within the lumbar spine convex left. There is some degenerative spurring seen involving the lower thoracic spine. There is some degenerative sclerosis seen involving the sacroiliac joints inferiorly without evidence of fusion or widening. There are prominent vascular calcifications present. Patient status post previous right pelvic surgery. XR/XR lumbar spine 2-3V IMPRESSION: No evidence of acute fracture, spondylolisthesis, or spondylolysis of the lumbar spine. Multilevel degenerative spurring.
[2020-12-30 14:11] VITALS: BP 163/68; PULSE 98; RESP 16; TEMP 36.5; O2SAT 95; BMI 29.2
[2020-12-30 14:21] VITALS: BP 163/68; PULSE 78; RESP 18; TEMP 36.5; O2SAT 98
[2020-12-30 16:14] VITALS: BP 136/71; PULSE 85; RESP 14; TEMP 36.4; O2SAT 94
--- NOTE | 2020-12-30 16:16 | ED.BACK ---
HPI - Back Pain/Injury General Chief Complaint: Back Pain/Injury Stated Complaint: BACK PAIN Time Seen by Provider: 12/30/20 15:20 Source: patient and EMS Mode of arrival: EMS Limitations: no limitations History of Present Illness HPI Narrative: 60 y/o male with afib on Xarelto and Lopressor, HFrEF (EF 15-20%), cocaine use, paranoid schizophrenia, s/p kidney transplant in 2006, HTN, active smoker, who had recent PNA and recent admissions x2 here for fluid overload and cardiorenal syndrome who presents to the ED from [facility] center with worsening non-traumatic low back pain since yesterday. He states he was walking with his cane when his lower back tensed and tightened up when he was walking to the bathroom. He states the pain is so bad he is having trouble walking. It shoots up and down both of his legs. He denies numbness, tingling, saddle paresthesias, LE weakness, fever, chills, or incontinence. He denies falling. He was discharged there from here on 12/27. He admits he does not like it at the [facility]. MD elicited complaint: back pain Pertinent past history: prior back pain Onset (ago): day(s) (2) Timing: constant Severity: moderate Similar Symptoms Previously: Yes Quality: aching and spasming Location: lumbar spine, right lower back and left lower back Exacerbating factors: movement and walking Relieving factors: immobilization and supine Context: turning/twisting Associated symptoms: denies other symptoms Work related injury: No Related Data Home Medications Medication Instructions Recorded Confirmed aripiprazole 30 mg tablet 30 mg PO DAILY 08/13/20 12/25/20 omeprazole 20 mg capsule,delayed 20 mg PO DAILY 08/13/20 12/25/20 release tacrolimus 1 mg capsule, 2 mg PO BID 08/13/20 12/25/20 immediate-release albuterol sulfate 90 mcg/actuation 2 puff INHALATION Q6H PRN 09/29/20 12/25/20 aerosol inhaler Phospha 250 Neutral 1 tab PO DAILY 12/08/20 12/25/20 divalproex [Depakote ER] 1,000 mg PO BEDTIME 12/08/20 12/25/20 divalproex [Depakote ER] 500 mg PO DAILY 12/08/20 12/25/20 Cardizem LA 1 tab PO DAILY 12/25/20 12/25/20 Previous Rx's Medication Instructions Recorded acetaminophen 650 mg 650 mg PO Q12H PRN 15 Days #30 tab 09/29/20 tablet,extended release rivaroxaban 15 mg tablet 15 mg PO DAILY #90 tab 10/29/20 hydralazine 10 mg PO BID #120 tab 12/17/20 isosorbide dinitrate 5 mg PO BID #120 tab 12/17/20 magnesium oxide 400 mg PO BIDPC #60 tab 12/17/20 metoprolol tartrate 50 mg PO BID #60 tab 12/17/20 cephalexin 500 mg PO Q12H #10 cap 12/27/20 doxycycline hyclate 100 mg PO BID #10 tab 12/27/20 furosemide 40 mg PO BID@0900,1800 #60 tab 12/27/20 prednisone 5 mg PO DAILY #30 tab 12/27/20 cyclobenzaprine 10 mg PO TID PRN #10 tab 12/30/20 lidocaine [Lidoderm] 1 patch TOPICAL DAILY #15 ea 12/30/20 Allergies Allergy/AdvReac Type Severity Reaction Status Date / Time diltiazem [From Cardizem] Allergy Unknown Dizziness Verified 11/05/20 12:06 indomethacin [Indocin] Allergy Unknown Unknown Verified 11/05/20 12:06 Review of Systems Review of Systems: Constitutional: No Fever, No Chills ENT/Mouth: No sore throat, No Rhinorrhea, No Swallowing Difficulty Cardiovascular: No Chest Pain, No SOB, No Orthopnea, No Edema Respiratory: No Cough, No Sputum, No Wheezing, No dyspnea Gastrointestinal: No Nausea, No Vomiting, No Diarrhea, No abdominal Pain Genitourinary: No Dysuria, No Urinary Frequency, No Hematuria Musculoskeletal: + joint pain, + Myalgias Skin: + Skin Lesions (left axilla), No rash Neuro: No Weakness, No Numbness, No Dizziness, No Headache Psych: No Anxiety/Panic, No Depression Heme/Lymph: No Bruising, No Lymphadenopathy Endocrine: No Polyuria, No Polydipsia PMFSH Past Medical History Medical History Asthma Atrial fibrillation Bipolar disorder Cellulitis of left foot Cellulitis of left lower extremity Cocaine use Congestive heart failure DVT (deep venous thrombosis) Essential hypertension Gout Heart failure with reduced ejection fraction Hip osteoarthritis History of seizures Obesity Pacemaker PAF (paroxysmal atrial fibrillation) Polysubstance abuse Renal transplant recipient Second degree heart block Subdural hematoma Thrombocytopenia Tobacco abuse Unilateral primary osteoarthritis, left knee Urinary bladder cancer Surgical History Abscess of arm, left H/O cardiac radiofrequency ablation History of cardiac catheterization History of removal of cyst History of removal of cyst Kidney replaced by transplant Family History Family History Father Prostate cancer Mother No problems noted. Brother Cancer Social History Social History Household Members: None Housing: Apartment Alcohol intake: never Smoking Status: Former smoker Tobacco Type: Cigarette Cigarettes Per Day: 1 Substance Use Type: Crack/Cocaine Advance Directives: Yes Advance Directives Information Provided: No Advance Directives on File: No Advance Directives Date on File: 12/25/20 service: No Current occupational status: retired Physical Exam Vital Signs: Vital Signs: Last Vital Signs Temp 97.5 F 12/30/20 16:14 Pulse 85 12/30/20 16:14 Resp 14 12/30/20 16:14 BP 136/71 12/30/20 16:14 Pulse Ox 94 12/30/20 16:14 Body Mass Index 29.2 Appearance: Alert. Oriented X3. No acute distress. Eyes: Pupils equal, round and reactive to light. ENT: Pharynx normal. Neck: Normal inspection. Neck supple. CVS: Normal heart rate and rhythm. Pulses normal. Respiratory: No respiratory distress. Breath sounds normal. Breathing comfortably laying flat in the stretcher Abdomen: Soft and nontender. +BS x4 Skin: Skin warm and dry. Normal skin color. Normal skin turgor. No rashes. Extremities: 3+ pitting LE edema, no tenderness, no warmth Neuro: Oriented X 3. No motor deficit. No sensory deficit. Slowly moving around in the bed, able to turn to his side. equal and symmetrical strength throughout. ambulates with steady gait using his cane Course Course Course Narrative: 60 y/o male with multiple comorbidities presenting with 2 days of low back pain radiating down his legs. +SI joint tenderness and lumbar soft tissue tenderness on exam. No red flag symptoms of LBP. He is ambulatory here. Symptoms improved with muscle relaxer and lidoderm. XR is negative. UA is negative. He was reportedly discharged from [facility] as he did not like it there. He perfers not to go back and he would like to go home. He is stable for discharge. He needs to follow up with PCP & Crutching Contractor, take all of his medications. Advised to abstain from cocaine. Discharge Plan Discharge Clinical Impression: Sciatica Qualifiers: Laterality: left Qualified Code(s): M54.32 - Sciatica, left side Patient Disposition: Home, Self-Care Instructions: Lumbar Radiculopathy (ED), Lower Back Exercises (ED) Additional Instructions: Your back x-ray today was normal. Your urine test did not show any signs of infection or kidney stones. It is likely your pain is musculoskeletal from either a muscle strain or an irritation of your sciatic nerve. No bending, lifting or twisting. Use ice several times per day for 20 minutes at a time for the next 48 hours and then change to heat. Take medications as prescribed to help with pain and discomfort. Follow up with your Primary Care Doctor this week. Follow up with your Crutching Contractor as well. DO NOT USE COCAINE! IT CAN KILL YOU WITH YOUR CARDIAC HISTORY. If your pain worsens, if you develop new numbness, tingling, weakness, loss of function or incontinence call 911 or come back to the ER right away for evaluation. Prescriptions: New cyclobenzaprine 10 mg tablet 10 mg PO TID PRN (Reason: muscle spasm) Qty: 10 RF: 0 lidocaine [Lidoderm] 5 % adhesive patch,medicated 1 patch topical DAILY Qty: 15 RF: 0 No Action divalproex [Depakote ER] 500 mg Tablet Extended Release 24 Hr 500 mg PO DAILY RF: 0 divalproex [Depakote ER] 500 mg Tablet Extended Release 24 Hr 1,000 mg PO BEDTIME RF: 0 Phospha 250 Neutral 250 mg Tablet 1 tab PO DAILY RF: 0 hydralazine 10 mg Tablet 10 mg PO BID Qty: 120 RF: 0 magnesium oxide 400 mg (241.3 mg magnesium) Tablet 400 mg PO BIDPC Qty: 60 RF: 0 metoprolol tartrate 50 mg Tablet 50 mg PO BID Qty: 60 RF: 0 isosorbide dinitrate 5 mg Tablet 5 mg PO BID Qty: 120 RF: 0 Cardizem LA 120 mg tablet extended release 24 hr 1 tab PO DAILY RF: 0 furosemide 40 mg Tablet 40 mg PO BID@0900,1800 Qty: 60 RF: 0 prednisone 5 mg Tablet 5 mg PO DAILY Qty: 30 RF: 0 cephalexin 500 mg Capsule 500 mg PO Q12H Qty: 10 RF: 0 doxycycline hyclate 100 mg Tablet 100 mg PO BID Qty: 10 RF: 0 omeprazole 20 mg capsule,delayed release(DR/EC) 20 mg PO DAILY RF: 0 aripiprazole [Abilify] 30 mg tablet 30 mg PO DAILY RF: 0 tacrolimus [Prograf] 1 mg capsule 2 mg PO BID RF: 0 albuterol sulfate 90 mcg/actuation HFA aerosol inhaler 2 puff inhalation Q6H PRN (Reason: Respiratory Distress) RF: 0 acetaminophen [Tylenol Arthritis Pain] 650 mg tablet extended release 650 mg PO Q12H PRN (Reason: pain) 15 Days Qty: 30 RF: 0 Xarelto 15 mg tablet 15 mg PO DAILY Qty: 90 RF: 4
--- NOTE | 2020-12-30 16:18 | PC.NURSE ---
3 attempts made to speak to [facility] no answer.
[2020-12-30] MEDS: Acetaminophen 325 MG TABLET 975 MG PO (16:29)
[2020-12-30] MEDS: Cyclobenzaprine HCl 10 MG TABLET PO (16:30)
[2020-12-30] MEDS: Lidocaine 4 % Patch ADH..PATCH 1 PATCH TRANSDERMA (16:30)
--- NOTE | 2020-12-30 17:18 | PC.NURSE ---
pt passed ambualtion trial sim from [facility] [place].
--- NOTE | 2020-12-30 17:21 | PC.NURSE ---
Update given to [facility] NIC [facility]. [facility] is in agreement to d/c back to home with [facility] support.
[2020-12-30 17:44] VITALS: BP 110/85; PULSE 79; RESP 18; TEMP 36.4; O2SAT 98
== END 2020-12-30 19:40 | disposition home or self-care (01) ==
PROVIDERS: Emergency Provider Emergency Medicine; PCP Internal Medicine
DX: M54.32 Sciatica, left side (principal); I48.91 Unspecified atrial fibrillation; F14.90 Cocaine use, unspecified, uncomplicated; F17.210 Nicotine dependence, cigarettes, uncomplicated; Z71.6 Tobacco abuse counseling; Z79.01 Long term (current) use of anticoagulants; Z79.899 Other long term (current) drug therapy
CPT/HCPCS: 72100; 99284

== ENCOUNTER → 2021-01-07 10:10 | Outpatient (BNVA) | payer OTHER, SELFPAY | PROVIDERS: PCP Internal Medicine; Visit Provider Internal Medicine | DX: I48.0 Paroxysmal atrial fibrillation (principal); I48.91 Unspecified atrial fibrillation; I48.92 Unspecified atrial flutter; I50.21 Acute systolic (congestive) heart failure; I11.0 Hypertensive heart disease with heart failure; F14.90 Cocaine use, unspecified, uncomplicated; Z98.890 Other specified postprocedural states; Z79.899 Other long term (current) drug therapy; Z87.891 Personal history of nicotine dependence | CPT/HCPCS: 93005; 99212 ==

== ENCOUNTER 2021-01-12 14:17 | Inpatient (IN) | payer OTHER, SELFPAY ==
[2021-01-12] VITALS (10 sets, daily range): BP systolic 129–155; BP diastolic 70–102; PULSE 87–112; RESP 14–23; TEMP 36.5–36.6; O2SAT 95–99; BMI 28.3
--- NOTE | ~2021-01-12 | CT_ITS ---
EXAMINATION: CT HEAD WITHOUT CONTRAST CLINICAL INFORMATION: Syncope, fall, on Xarelto. COMPARISON: CT brain noncontrast 10/23/2019 TECHNIQUE: Contiguous axial imaging was performed from the skull base to vertex without intravenous administration of contrast. Additional 2-D coronal and sagittal reformatted images are generated on the CT workstation and uploaded to PACS. This CT examination was performed using dose optimization techniques as appropriate, variously including the following: *Automated exposure control *Adjustment of mA and/or kV according to patient size (this includes techniques or standardized protocols for targeted exams where dose is matched to indication/reason for exam; i.e. extremities or head) *Use of iterative reconstruction technique DLP: 740 mGy-cm FINDINGS: There are some subtle artifact related to motion. There is no intracranial hemorrhage, hematoma, or extra-axial fluid collection. The ventricles are normal in size. There is no hydrocephalus, edema, or mass effect. The zuñiga-white matter differentiation appears similar to previous exam. There is no visible acute territorial infarct or mass lesion. The calvarium appears intact. There is no pneumocephalus or orbital emphysema. There are no air-fluid levels. There is mild mucosal thickening inferior left maxillary sinus. CT/CT head/brain wo con IMPRESSION: No acute intracranial abnormality.
--- NOTE | ~2021-01-12 | XR_ITS ---
EXAMINATION: XR CHEST CLINICAL INFORMATION: Syncope COMPARISON: Chest radiographs 12/25/2020, 12/08/2020; Multiview chest 03/11/2020, CT chest 10/22/2019. TECHNIQUE: Portable upright AP view of the chest was obtained. FINDINGS: Mild cardiopericardial enlargement is again noted with bipolar pacemaker. The vascularity is normal. The hazy opacities perihilar region noted on prior chest are no longer present. There is no airspace consolidation or groundglass opacity or effusion. The hilar and mediastinal contours and bony structures are stable. Again, there is density overlying the first costochondral junction related to degenerative changes and exostosis. XR/XR chest 1V IMPRESSION: No acute intrathoracic disease.
--- NOTE | 2021-01-12 14:46 | ED_ITS ---
HPI - Syncope General Chief Complaint: Syncope Stated Complaint: SYNCOPE Time Seen by Provider: 01/12/21 14:28 Source: patient and EMS Mode of arrival: EMS Limitations: no limitations History of Present Illness HPI narrative: states he was eating lunch and slumped in his chair and blacked out no preceding symptoms, reports compliance with his medications, no CP/SOB MD complaint: loss of consciousness Onset (ago): minute(s) -: second(s) Prodromal symptoms: none Witnessed: No Context: at rest (while eating lunch) and recent illness Injuries sustained associated with event: none Current symptoms: none Treatments prior to arrival: none Related Data Home Medications Medication Instructions Recorded Confirmed aripiprazole 30 mg tablet 30 mg PO DAILY 08/13/20 01/07/21 omeprazole 20 mg capsule,delayed 20 mg PO DAILY 08/13/20 01/07/21 release tacrolimus 1 mg capsule, 2 mg PO BID 08/13/20 01/07/21 immediate-release albuterol sulfate 90 mcg/actuation 2 puff INHALATION Q6H PRN 09/29/20 01/07/21 aerosol inhaler Phospha 250 Neutral 1 tab PO DAILY 12/08/20 01/07/21 divalproex [Depakote ER] 1,000 mg PO BEDTIME 12/08/20 01/07/21 divalproex [Depakote ER] 500 mg PO DAILY 12/08/20 01/07/21 Previous Rx's Medication Instructions Recorded acetaminophen 650 mg 650 mg PO Q12H PRN 15 Days #30 tab 09/29/20 tablet,extended release magnesium oxide 400 mg PO BIDPC #60 tab 12/17/20 cephalexin 500 mg PO Q12H #10 cap 12/27/20 prednisone 5 mg PO DAILY #30 tab 12/27/20 cyclobenzaprine 10 mg PO TID PRN #10 tab 12/30/20 lidocaine [Lidoderm] 1 patch TOPICAL DAILY #15 ea 12/30/20 diltiazem HCl 120 mg 120 mg PO DAILY #90 tab 01/01/21 tablet,extended release 24 hr furosemide 40 mg tablet 40 mg PO BID@0900,1800 #180 tab 01/01/21 hydralazine 10 mg tablet 10 mg PO BID #180 tab 01/01/21 isosorbide dinitrate 5 mg tablet 5 mg PO BID #180 tab 01/01/21 metoprolol tartrate 50 mg tablet 50 mg PO BID #180 tab 01/01/21 rivaroxaban 15 mg tablet 15 mg PO DAILY #90 tab 01/01/21 Allergies Allergy/AdvReac Type Severity Reaction Status Date / Time diltiazem [From Cardizem] Allergy Unknown Dizziness Verified 01/07/21 10:19 indomethacin [Indocin] Allergy Unknown Unknown Verified 01/07/21 10:19 Review of Systems Review of Systems: Constitutional : No Fever, No Chills ENT/Mouth : No sore throat, No Rhinorrhea, No Swallowing Difficulty Eyes: No Eye Pain, No Swelling, No Redness Cardiovascular : No Chest Pain, no SOB, No Orthopnea, positive Edema Respiratory : No Cough, No Sputum, No Wheezing, no dyspnea Gastrointestinal : No Nausea, No Vomiting, No Diarrhea, No abdominal Pain, No Hematochezia, No Melena Genitourinary : No Dysuria, No Urinary Frequency, No Hematuria Musculoskeletal : No joint pain, No Myalgias Skin : No Skin Lesions, No rash Neuro : No Weakness, No Numbness, No Dizziness, No Headache, pos syncope Psych : No Anxiety/Panic, No Depression Heme/Lymph: No Bruising, No Lymphadenopathy Endocrine : No Polyuria, No Polydipsia All other systems reviewed and are negative [facility] Past Medical History Attestation statement: The following information was validated with the patient. Medical History Afib Asthma Atrial fibrillation Bipolar disorder Cellulitis of left foot Cellulitis of left lower extremity Cocaine use Congestive heart failure DVT (deep venous thrombosis) Essential hypertension Gout Heart failure with reduced ejection fraction Hip osteoarthritis History of seizures Obesity Pacemaker PAF (paroxysmal atrial fibrillation) Polysubstance abuse Renal transplant recipient Second degree heart block Subdural hematoma Thrombocytopenia Tobacco abuse Unilateral primary osteoarthritis, left knee Urinary bladder cancer Surgical History (Updated 01/12/21 @ 14:33 by Juvencio Bennett) Abscess of arm, left H/O cardiac radiofrequency ablation History of cardiac catheterization History of removal of cyst History of removal of cyst Kidney replaced by transplant Kidney transplant recipient Family History Family History Father Prostate cancer Mother No problems noted. Brother Cancer Social History Social History Household Members: None Housing: Apartment Alcohol intake: never Smoking Status: Former smoker Tobacco Type: Cigarette Cigarettes Per Day: 1 Substance Use Type: Crack/Cocaine Advance Directives: No Advance Directives Information Provided: No Advance Directives Date on File: 12/25/20 service: No Current occupational status: retired Physical Exam Vital Signs: Vital Signs: Last Vital Signs Temp 98 F 01/12/21 14:23 Pulse 92 01/12/21 15:29 Resp 16 01/12/21 15:29 BP 146/96 H 01/12/21 15:29 Pulse Ox 97 01/12/21 15:29 Body Mass Index 28.3 Appearance: Alert. Oriented X3. No acute distress. Eyes: Pupils equal, round and reactive to light. ENT: Pharynx normal. Neck: Normal inspection. Neck supple. CVS: tachycardic irregular heart rate and rhythm. Pulses normal. Respiratory: No respiratory distress. Breath sounds normal. Abdomen: Soft and nontender. Skin: Skin warm and dry. Normal skin color. Normal skin turgor. Extremities: bilateral 1 to 2+ pitting lower extremity edema. No calf ttp Neuro: Oriented X 3. No motor deficit. No sensory deficit. Course Course Course Narrative: signed out to Dr. Cleaning pending labs and repeat troponin MDM - Syncope MDM Narrative Medical decision making narrative: 60 yo male s/p renal transplant, afib on xarelto, CHF, HTN, DVT, crack abuse in recovery - was eating lunch today and states he blacked out in his chair did not fall over, woke up and then told someone in the program who then called 911, he has no complaints at this time will need labs, troponin x 2, CT head to r/o ICH as it was not witnessed and patient is on xarelto - dispo per results and findings Lab Data Result diagrams: 01/12/21 15:46 01/12/21 15:46 Labs: Lab Results 01/12/21 01/12/21 Range/Units 15:46 15:46 WBC 4.2 L (4.8-10.8) X10*3/uL RBC 3.68 L (4.60-5.80) X10*6/uL Hgb 10.8 L (14.0-18.0) g/dl Hct 34.5 L (42-52) % MCV 93.8 (80-98) fL MCH 29.3 (27.0-33.0) pg MCHC 31.3 (31.0-36.0) g/dl RDW 16.3 H (11.0-16.0) % Plt Count 66 L D (160-400) X10*3/uL MPV 11.5 (9.4-12.4) fL Immature Gran % (Auto) 1.7 H (0.0-0.4) % Neut % (Auto) 75.6 H (45-73) % Lymph % (Auto) 17.5 L (20-40) % Frederick % (Auto) 5.0 (2-11) % Eos % (Auto) 0.2 (0-4) % Baso % (Auto) 0.0 (0-2) % Lymph # (Auto) 0.7 L (1.2-4.9) X10*3/uL Frederick # (Auto) 0.2 (0.1-1.2) X10*3/uL Eos # (Auto) 0.0 (0.0-0.4) X10*3/uL Baso # (Auto) 0.0 (0.0-0.2) X10*3/uL Abs Immat Gran (auto) 0.07 H (0.00-0.03) X10*3/uL Absolute Neuts (auto) 3.2 (2.0-8.3) X10*3/uL Absolute Nucleated RBC 0.000 (0.0-0.012) X10*3/uL Nucleated RBC % (auto) 0.0 (0.0-0.2) /100WBC PT 20.1 H (10.8-13.0) SEC INR 1.7 H (0.9-1.1) APTT 38.9 H (24.1-38.0) SEC ECG Data Attestation: I personally reviewed and interpreted this ECG as follows: ECG interpretation date: 01/12/21 ECG interpretation time: 14:47 Interpretation: Rate: 100 Rhythm: afib [place]: left RBBB ST T wave : nonspecific, no JORDAN ivnerted T waves in I and aVL qTC: normal prior studies: no change from prior december 25 2020 The study has been interpreted contemporaneously by me. . Discharge Plan Discharge Clinical Impression: Syncope Prescriptions: No Action Cardizem LA 120 mg tablet extended release 24 hr 120 mg PO DAILY Qty: 90 RF: 2 furosemide 40 mg tablet 40 mg PO BID@0900,1800 Qty: 180 RF: 2 hydralazine 10 mg tablet 10 mg PO BID Qty: 180 RF: 2 isosorbide dinitrate 5 mg tablet 5 mg PO BID Qty: 180 RF: 2 metoprolol tartrate 50 mg tablet 50 mg PO BID Qty: 180 RF: 2 Xarelto 15 mg tablet 15 mg PO DAILY Qty: 90 RF: 2 divalproex [Depakote ER] 500 mg Tablet Extended Release 24 Hr 500 mg PO DAILY RF: 0 divalproex [Depakote ER] 500 mg Tablet Extended Release 24 Hr 1,000 mg PO BEDTIME RF: 0 Phospha 250 Neutral 250 mg Tablet 1 tab PO DAILY RF: 0 magnesium oxide 400 mg (241.3 mg magnesium) Tablet 400 mg PO BIDPC Qty: 60 RF: 0 prednisone 5 mg Tablet 5 mg PO DAILY Qty: 30 RF: 0 cephalexin 500 mg Capsule 500 mg PO Q12H Qty: 10 RF: 0 cyclobenzaprine 10 mg tablet 10 mg PO TID PRN (Reason: muscle spasm) Qty: 10 RF: 0 lidocaine [Lidoderm] 5 % adhesive patch,medicated 1 patch topical DAILY Qty: 15 RF: 0 omeprazole 20 mg capsule,delayed release(DR/EC) 20 mg PO DAILY RF: 0 aripiprazole [Abilify] 30 mg tablet 30 mg PO DAILY RF: 0 tacrolimus [Prograf] 1 mg capsule 2 mg PO BID RF: 0 albuterol sulfate 90 mcg/actuation HFA aerosol inhaler 2 puff inhalation Q6H PRN (Reason: Respiratory Distress) RF: 0 acetaminophen [Tylenol Arthritis Pain] 650 mg tablet extended release 650 mg PO Q12H PRN (Reason: pain) 15 Days Qty: 30 RF: 0
--- NOTE | 2021-01-12 15:30 | PC.NURSE ---
pt is drowsy but easily aroused, speach is clear and appropriate and pt has a symmetrical face and is moving all 4 ext briskly. pt is able to manage his own oral secretions. pt is afib in lead 2, skin is wpd. pupils are perrl bilat. pt is back from ct, awaiting ct report.
[2021-01-12 15:51] LABS: MANUAL DIFF FLAG NO
[2021-01-12 15:55] LABS: Eosinophils Percent Auto 0.2 % (0-4); Hematocrit 34.5 % (42-52); Hemoglobin 10.8 g/dl (14.0-18.0); Imm Gran Abs Auto 0.07 X10*3/uL (0.00-0.03); Imm Gran Pct Auto 1.7 % (0.0-0.4); Lymphocytes Absolute Auto 0.7 X10*3/uL (1.2-4.9); Lymphocytes Percent Auto 17.5 % (20-40); Mean Corpuscular HGB Conc 31.3 g/dl (31.0-36.0); Mean Corpuscular Hemoglobin 29.3 pg (27.0-33.0); Mean Corpuscular Volume 93.8 fL (80-98); Mean Platelet Volume 11.5 fL (9.4-12.4); Monocytes Absolute Auto 0.2 X10*3/uL (0.1-1.2); Neutrophils Absolute Auto 3.2 X10*3/uL (2.0-8.3); Neutrophils Percent Auto 75.6 % (45-73); Red Blood Count 3.68 X10*6/uL (4.60-5.80); Red Cell Distribution Width 16.3 % (11.0-16.0); White Blood Count 4.2 X10*3/uL (4.8-10.8)
[2021-01-12 15:57] LABS: INTERNATIONAL NORM RATIO 1.7 (0.9-1.1); Prothrombin Time 20.1 SEC (10.8-13.0)
[2021-01-12 15:58] LABS: Platelet Count 66 X10*3/uL (160-400)
[2021-01-12 16:01] LABS: Partial Thromboplastin Time 38.9 SEC (24.1-38.0)
[2021-01-12 16:15] LABS: COVID-19 Test Negative (Negative); IDNOW Serial# 9DD0AD1C
[2021-01-12 16:20] LABS: B Type Natriuretic Peptide 1192 pg/mL (<100); Troponin-I High Sensitivity 32.5 ng/L (<3.5-35.0)
[2021-01-12 16:27] LABS: Ethanol < 10 mg/dL
[2021-01-12 16:30] LABS: Alanine Aminotransferase 12 U/L (0-40); Albumin Level 3.1 g/dL (3.5-5.0); Alkaline Phosphatase 71 U/L (39-117); Anion Gap 11 (12-20); Aspartate Amino Transferase 11 U/L (5-37); Bilirubin Direct 0.2 mg/dL (0.0-0.5); Bilirubin Total 0.4 mg/dL (0.0-1.0); Blood Urea Nitrogen 49 mg/dL (9-16); Calcium 8.9 mg/dL (8.4-10.2); Carbon Dioxide 27 mmol/L (22-29); Chloride 109 mmol/L (96-108); Creatinine Clr Calc Pharmacy 38.7; Estimated Glomerular Filt Rate 31; Glucose Random 146 mg/dL (60-115); Lipase 8 U/L (8-78); Magnesium 1.5 mg/dL (1.6-2.6); Potassium 5.4 mmol/L (3.3-5.1); Sodium 142 mmol/L (135-145); Total Protein 5.3 g/dL (6.5-8.0)
--- NOTE | 2021-01-12 17:22 | PC.NURSE ---
PRICER SHAMIR BRADLEY CALLS AT THIS TIME FOR UPDATE ON PATIENT'S STATUS, WELL TO LEAVE CALL BACK NUMBER FOR [facility] [place]QUEST [place]SPORT BACK TO INTERMEDIATE UPON DISCHARGE. [phone]
[2021-01-12] MEDS: Furosemide 40 MG/4 ML VIAL IVPUSH (17:54)
[2021-01-12 18:32] LABS: Amphetamine Screen Urine Not Detected (Not Detect); Barbiturates, Urine Not Detected (Not Detect); Benzodiazepines Screen Urine Not Detected (Not Detect); Cannabinoid Screen Urine Not Detected (Not Detect); Cocaine Screen Urine Not Detected (Not Detect); Opiate Screen Urine Not Detected (Not Detect); Phencyclidine Screen Urine Not Detected (Not Detect)
[2021-01-12 19:28] LABS: Glucose, Whole Blood 143 mg/dL (60-115)
--- NOTE | 2021-01-12 19:40 | PC.NURSE ---
Pt aaox4, calm and compliant with pt care, resting on stretcher in NAD, RR even and unlabored on RA, VSS. Pt denies pain/discomfort. Pt offers no concerns/complaints at this time. Pt afib on director of cardiac rehabilitation, Dr Cleaning is aware. Pt stretcher is in lowest locked position, rails raised, call shine within reach. All needs met at this time. Urinal within pt reach.
[2021-01-12 20:18] LABS: Troponin-I High Sensitivity 30.2 ng/L (<3.5-35.0)
--- NOTE | 2021-01-12 21:05 | P.HPHOSP_ITS ---
History of Present Illness Date of Service: 01/12/21 Chief Complaint: Syncopal episode This is a 60-year-old male with past medical history of AFib, bipolar disorder, cocaine abuse, CHF, DVT, HTN, gout, seizures, kidney transplant, second-degree heart block status post pacemaker, subdural hematoma, thrombocytopenia, who presents to the hospital with complaints of syncopal episode while in a meeting. Patient reports that he was in a meeting at his sober house when all of a sudden while sitting in his chair a loss consciousness. Patient reports that he was unconscious for probably few seconds, he had no prodromal symptoms but when he came about and was feeling dizzy. He denies having any chest pain, no s hortness of breath, no palpitations. He does complain of lower extremity edema that started the day prior, he denies any dyspnea, no orthopnea or PND. He denies any cough. Denies any abdominal pain nausea or vomiting, no diarrhea constipation. No urinary symptoms. On arrival to the ED patient's vital significant for temp of 97.7?, heart rate of 105, respiratory rate of 23, blood pressure 142/95, satting 97% on room air Lab significant for WBC count of 4.2, hemoglobin of 10.8 which is around his baseline, platelet count of 66, PT of 20.1, INR of 1.7, PTT of 38.9, potassium 5.4, chloride of 109, BUN of 49, creatinine of 2.16 with a baseline around 1.9 about few weeks ago, magnesium level of 1.5, BNP of 1192, UDS negative, will negative, COVID-19 negative. Chest x-ray shows no acute intrathoracic pathology, and head CT shows no acute intracranial pathology EKG in the ED showed AFib with aberrancy. Patient was apparently scheduled for cardioversion 3 weeks will be admitted here for cardioversion after consultation with Cardiology Past medical history as below confirmed with patient Review of Systems Review of Systems: Yes all other systems are reviewed and are negative [facility] Medical History Afib Asthma Atrial fibrillation Bipolar disorder Cellulitis of left foot Cellulitis of left lower extremity Cocaine use Congestive heart failure DVT (deep venous thrombosis) Essential hypertension Gout Heart failure with reduced ejection fraction Hip osteoarthritis History of seizures Obesity Pacemaker PAF (paroxysmal atrial fibrillation) Polysubstance abuse Renal transplant recipient Second degree heart block Subdural hematoma Thrombocytopenia Tobacco abuse Unilateral primary osteoarthritis, left knee Urinary bladder cancer Family History Father Prostate cancer Mother No problems noted. Brother Cancer Surgical History Abscess of arm, left H/O cardiac radiofrequency ablation History of cardiac catheterization History of removal of cyst History of removal of cyst Kidney replaced by transplant Kidney transplant recipient Social History Household Members: None Housing: Apartment Alcohol intake: never Smoking Status: Current every day smoker Tobacco Type: Cigarette Cigarettes Per Day: 1 Smoked in Last 30 Days: Yes Use of substances other than those prescribed or required for medical reasons: No Substance Use Type: Crack/Cocaine Advance Directives: No Advance Directives Information Provided: No Advance Directives Date on File: 12/25/20 service: No Current occupational status: retired [employer] Allergies Allergy/AdvReac Type Severity Reaction Status Date / Time diltiazem [From Cardizem] Allergy Unknown Dizziness Verified 01/07/21 10:19 indomethacin [Indocin] Allergy Unknown Unknown Verified 01/07/21 10:19 Active Medications: Current Medications Generic Name Dose Route Start Last Admin Trade Name Freq PRN Reason Stop Dose Admin Pharmacy Consult 1 each 01/12/21 19:05 Consult Rx Perform Med Rec MISCELLANE ONCE PRN Consult order Home Medications Medication Instructions Recorded Confirmed Last Taken Type aripiprazole 30 mg tablet 30 mg PO DAILY 08/13/20 01/12/21 12/24/20 History omeprazole 20 mg capsule,delayed 20 mg PO DAILY 08/13/20 01/12/21 12/24/20 History release tacrolimus 1 mg capsule, 2 mg PO BID 08/13/20 01/12/21 12/24/20 History immediate-release albuterol sulfate 90 mcg/actuation 2 puff INHALATION Q6H PRN 09/29/20 01/12/21 Unknown History aerosol inhaler Phospha 250 Neutral 1 tab PO DAILY 12/08/20 01/12/21 12/24/20 History divalproex [Depakote ER] 1,000 mg PO BEDTIME 12/08/20 01/12/2112/24/21 History divalproex [Depakote ER] 500 mg PO DAILY 12/08/20 01/12/21 12/24/20 History prednisone 10 mg PO DAILY 01/12/21 01/12/21 Unknown History Physical Exam Vital Signs and Narrative: Vital Signs: Last Vital Signs Temp 97.7 F 01/12/21 19:23 Pulse 102 H 01/12/21 19:32 Resp 23 H 01/12/21 19:23 BP 155/89 H 01/12/21 19:32 Pulse Ox 96 01/12/21 19:27 Body Mass Index 28.3 Const: General: cooperative and no acute distress Orientation/consciousness: patient oriented x3 Eyes: General: appearance normal, both eyes and all related structures Resp: Effort & Inspection: normal respiratory effort Cardio: Rate: regular rate Rhythm: regular rhythm GI: Palpation (GI): Soft to palpation Auscultation: normal bowel sounds Skin: General skin exam: no rashes or lesions noted Neuro: General: patient oriented x3 Cognition (Neuro): normal cognition Extrem: Other: 3+ pedal edema bilaterally General: Yes normal to inspection Results Labs CBC and Chem 7: 01/12/21 15:46 01/12/21 15:46 Labs: Laboratory Results - last 24 hr 01/12/21 01/12/21 01/12/21 15:46 15:46 15:46 MCV 93.8 MCH 29.3 MCHC 31.3 RDW 16.3 H Plt Count 66 L D MPV 11.5 Immature Gran % (Auto) 1.7 H Neut % (Auto) 75.6 H Lymph % (Auto) 17.5 L Stearns % (Auto) 5.0 Eos % (Auto) 0.2 Baso % (Auto) 0.0 Lymph # (Auto) 0.7 L Stearns # (Auto) 0.2 Eos # (Auto) 0.0 Baso # (Auto) 0.0 Abs Immat Gran (auto) 0.07 H Absolute Neuts (auto) 3.2 Absolute Nucleated RBC 0.000 Nucleated RBC % (auto) 0.0 PT 20.1 H INR 1.7 H APTT 38.9 H Anion Gap 11 L Estim Creat Clear Calc 38.7 Estimated GFR 31 POC Glucose Random Glucose 146 H D Calcium 8.9 Magnesium 1.5 L Total Bilirubin 0.4 Direct Bilirubin 0.2 AST 11 ALT 12 Alkaline Phosphatase 71 D Total Creatine Kinase 20 L Troponin I High Sens B-Natriuretic Peptide Total Protein 5.3 L Albumin 3.1 L Lipase 8 Urine Opiates Screen Ur Barbiturates Screen Ur Phencyclidine Scrn Ur Amphetamines Screen U Benzodiazepines Scrn Urine Cocaine Screen U Marijuana (THC) Screen Ethyl Alcohol COVID-19 (KARISSA) COVID-19 [employer] Com 01/12/21 01/12/21 01/12/21 15:46 15:46 15:46 MCV MCH MCHC RDW Plt Count MPV Immature Gran % (Auto) Neut % (Auto) Lymph % (Auto) Stearns % (Auto) Eos % (Auto) Baso % (Auto) Lymph # (Auto) Stearns # (Auto) Eos # (Auto) Baso # (Auto) Abs Immat Gran (auto) Absolute Neuts (auto) Absolute Nucleated RBC Nucleated RBC % (auto) PT INR APTT Anion Gap Estim Creat Clear Calc Estimated GFR POC Glucose Random Glucose Calcium Magnesium Total Bilirubin Direct Bilirubin AST ALT Alkaline Phosphatase Total Creatine Kinase Troponin I High Sens 32.5 B-Natriuretic Peptide Total Protein Albumin Lipase Urine Opiates Screen Ur Barbiturates Screen Ur Phencyclidine Scrn Ur Amphetamines Screen U Benzodiazepines Scrn Urine Cocaine Screen U Marijuana (THC) Screen Ethyl Alcohol < 10 COVID-19 (KARISSA) Negative COVID-19 [employer] See Note 01/12/21 01/12/21 01/12/21 15:46 17:56 19:10 MCV MCH MCHC RDW Plt Count MPV Immature Gran % (Auto) Neut % (Auto) Lymph % (Auto) Stearns % (Auto) Eos % (Auto) Baso % (Auto) Lymph # (Auto) Stearns # (Auto) Eos # (Auto) Baso # (Auto) Abs Immat Gran (auto) Absolute Neuts (auto) Absolute Nucleated RBC Nucleated RBC % (auto) PT INR APTT Anion Gap Estim Creat Clear Calc Estimated GFR POC Glucose 143 H Random Glucose Calcium Magnesium Total Bilirubin Direct Bilirubin AST ALT Alkaline Phosphatase Total Creatine Kinase Troponin I High Sens B-Natriuretic Peptide 1192 H Total Protein Albumin Lipase Urine Opiates Screen Not Detected Ur Barbiturates Screen Not Detected Ur Phencyclidine Scrn Not Detected Ur Amphetamines Screen Not Detected U Benzodiazepines Scrn Not Detected Urine Cocaine Screen Not Detected U Marijuana (THC) Screen Not Detected Ethyl Alcohol COVID-19 ([facility]) COVID-19 Clin Com 01/12/21 19:39 MCV MCH MCHC RDW Plt Count MPV Immature Gran % (Auto) Neut % (Auto) Lymph % (Auto) Stearns % (Auto) Eos % (Auto) Baso % (Auto) Lymph # (Auto) Stearns # (Auto) Eos # (Auto) Baso # (Auto) Abs Immat Gran (auto) Absolute Neuts (auto) Absolute Nucleated RBC Nucleated RBC % (auto) PT INR APTT Anion Gap Estim Creat Clear Calc Estimated GFR POC Glucose Random Glucose Calcium Magnesium Total Bilirubin Direct Bilirubin AST ALT Alkaline Phosphatase Total Creatine Kinase Troponin I High Sens 30.2 B-Natriuretic Peptide Total Protein Albumin Lipase Urine Opiates Screen Ur Barbiturates Screen Ur Phencyclidine Scrn Ur Amphetamines Screen U Benzodiazepines Scrn Urine Cocaine Screen U Marijuana (THC) Screen Ethyl Alcohol COVID-19 ([facility]ISSA) COVID-19 Clin Com Imaging Radiologist's Impressions: Impressions Head CT 01/12/21 14:49 IMPRESSION: No acute intracranial abnormality. Chest X-Ray 01/12/21 14:50 IMPRESSION: No acute intrathoracic disease. Assessment and Plan (1) Syncope: Qualifiers: Syncope type: unspecified Qualified Code(s): R55 - Syncope and collapse Status: Acute (2) Renal failure, acute on chronic: Qualifiers: Acute renal failure type: unspecified Chronic kidney disease stage: stage 3 (moderate) Chronic kidney disease stage 3 subtype: stage 3b (GFR 30-44) Qualified Code(s): N17.9 - Acute kidney failure, unspecified; N18.32 - Chronic kidney disease, stage 3b Status: Acute (3) Acute systolic (congestive) heart failure: Status: Acute (4) Heart failure with reduced ejection fraction: Status: Acute This is a 60-year-old male with extensive past medical history including heart failure, AFib status post ablation in 2018 who presents to the hospital with complaints of syncopal episode. Found to have AFib with aberrancy in the # syncopal episode - most likely secondary to cardiogenic causes including his history of AFib - patient had a run of AFib with aberrancy while in the ED - cardiology was consulted - patient will be admitted for cardioversion in a.m. - admit to telemetry # ANA and CKD - patient with history of renal transplant secondary to thiamine ( per pt) - creatinine from December of 1.9, presents today with creatinine of 2.16 - possibly prerenal secondary to heart failure - started on furosemide for heart failure - follow BMP # acute CHF exacerbation - ejection fraction of 15-20% % on echo done in - has lower extremity edema - on Lasix 40 mg p.o. b.i.d. at home - will start him on IV Lasix 40 b.i.d. - low-sodium diet, strict I&O, daily weight - cardiology consulted -will not repeat echo as patient had an echo done in November # history of AFib - status post ablation in 2018 - plan for cardioversion 3 weeks - given his presentation was syncopal episode patient will be undergoing Cardioversion in a.m. - will continue metoprolol and rivaroxaban - telemetry # history of kidney transplant - continue tacrolimus # hypomagnesemia - will replete - continue his home magnesium supplement #HTN - continue diltiazem and hydralazine as well as Imdur # seizure disorder - continue cyclobenzaprine, and Depakote DVT prophylaxis: Rivaroxaban
[2021-01-12] MEDS: Divalproex Sodium ER 500 MG TAB.ER.24H 1000 MG PO (22:43)
[2021-01-12] MEDS: Metoprolol Tartrate 50 MG TABLET PO (22:44)
[2021-01-12] MEDS: Isosorbide Dinitrate 5 MG TABLET PO (22:44)
[2021-01-12] MEDS: hydrALAZINE HCl 10 MG TABLET PO (22:44)
[2021-01-12] MEDS: Tacrolimus 1 MG CAPSULE 2 MG PO (22:45)
[2021-01-13] VITALS (17 sets, daily range): BP systolic 123–161; BP diastolic 58–104; PULSE 77–93; RESP 16–20; TEMP 36.3–36.9; O2SAT 95–98
--- NOTE | 2021-01-13 | ECG_ITS ---
Test Reason : AFIB Blood Pressure : / mmHG Vent. Rate : 100 BPM Atrial Rate : 208 BPM P-R Int : 000 ms QRS Dur : 130 ms QT Int : 362 ms P-R-T Axes : 000 -59 129 degrees QTc Int : 466 ms Atrial fibrillation Right bundle branch block Left anterior fascicular block Bifascicular block Abnormal ECG No significant changes when compared with the previous EKG of 25 december 2020 Referred By: Ana Schmidt Electronically Signed By:JENNIFER MCLEOD
--- NOTE | 2021-01-13 | ECG_ITS ---
Test Reason : CHEST PRESSURE Blood Pressure : / mmHG Vent. Rate : 090 BPM Atrial Rate : 091 BPM P-R Int : 000 ms QRS Dur : 138 ms QT Int : 386 ms P-R-T Axes : 000 -57 119 degrees QTc Int : 472 ms Atrial fibrillation Right bundle branch block Left anterior fascicular block Bifascicular block Abnormal ECG When compared with ECG of 12-JAN-2021 19:01, No significant change was found Referred By: Ana Schmidt Electronically Signed By:JENNIFER MCLEOD
--- NOTE | 2021-01-13 | ECG_ITS ---
Test Reason : REPEAT Blood Pressure : / mmHG Vent. Rate : 118 BPM Atrial Rate : 214 BPM P-R Int : 000 ms QRS Dur : 130 ms QT Int : 362 ms P-R-T Axes : 000 -63 109 degrees QTc Int : 507 ms Atrial fibrillation with rapid ventricular response with premature ventricular or aberrantly conducted complexes Right bundle branch block Left anterior fascicular block Bifascicular block Abnormal ECG When compared with ECG of 12-JAN-2021 14:34, No significant change was found Referred By: Ana Schmidt Electronically Signed By:JENNIFER MCLEOD
--- NOTE | 2021-01-13 02:10 | PC.NURSE ---
Pt rang in c/o chest congestion. Upon further questioning, pt reports chest discomfort feels like indigestion, like gas, like sharp, but I can't burp x 20 minutes. Repeat EKG performed, shown to Dr Erwin. VS reassessed, pt HTN as documented. Dr Ascencio TT to be made aware, this RN awaiting reply. Pt remains afib on residential monitor. Pt stretcher in lowest locked position with rails raised, call shine within reach.
[2021-01-13 06:03] LABS: MANUAL DIFF FLAG NO
[2021-01-13 06:07] LABS: Basophils Percent Auto 0.2 % (0-2); Eosinophils Percent Auto 0.2 % (0-4); Hemoglobin 10.9 g/dl (14.0-18.0); Imm Gran Pct Auto 2.2 % (0.0-0.4); Lymphocytes Absolute Auto 1.3 X10*3/uL (1.2-4.9); Lymphocytes Percent Auto 28.7 % (20-40); Mean Corpuscular HGB Conc 31.1 g/dl (31.0-36.0); Mean Corpuscular Hemoglobin 29.1 pg (27.0-33.0); Mean Corpuscular Volume 93.3 fL (80-98); Mean Platelet Volume 11.8 fL (9.4-12.4); Monocytes Absolute Auto 0.4 X10*3/uL (0.1-1.2); Monocytes Percent Auto 9.6 % (2-11); Neutrophils Absolute Auto 2.7 X10*3/uL (2.0-8.3); Neutrophils Percent Auto 59.1 % (45-73); Red Blood Count 3.75 X10*6/uL (4.60-5.80); Red Cell Distribution Width 16.5 % (11.0-16.0); White Blood Count 4.5 X10*3/uL (4.8-10.8)
[2021-01-13 06:12] LABS: Platelet Count 69 X10*3/uL (160-400)
[2021-01-13 06:29] LABS: Anion Gap 12 (12-20); Blood Urea Nitrogen 47 mg/dL (9-16); Calcium 8.8 mg/dL (8.4-10.2); Carbon Dioxide 29 mmol/L (22-29); Chloride 108 mmol/L (96-108); Creatinine Clr Calc Pharmacy 40.8; Estimated Glomerular Filt Rate 33; Glucose Random 150 mg/dL (60-115); Potassium 4.5 mmol/L (3.3-5.1); Sodium 144 mmol/L (135-145)
[2021-01-13] MEDS: Furosemide 40 MG/4 ML VIAL IVPUSH ×2 (06:52→17:23)
[2021-01-13] MEDS: Magnesium Oxide 400 MG TABLET PO ×2 (09:20→17:22)
[2021-01-13] MEDS: Isosorbide Dinitrate 5 MG TABLET PO ×2 (09:20→20:47)
[2021-01-13] MEDS: ARIPiprazole 30 MG TABLET PO (09:21)
[2021-01-13] MEDS: hydrALAZINE HCl 10 MG TABLET PO ×2 (09:21→20:48)
[2021-01-13] MEDS: Divalproex Sodium ER 500 MG TAB.ER.24H PO ×2 (09:22→20:46)
[2021-01-13] MEDS: Omeprazole 20 MG CAPSULE.DR PO (09:22)
[2021-01-13] MEDS: predniSONE 10 MG TABLET PO (09:23)
[2021-01-13] MEDS: Rivaroxaban 15 MG TABLET PO (09:23)
[2021-01-13] MEDS: Metoprolol Tartrate 50 MG TABLET PO ×2 (09:23→20:46)
[2021-01-13] MEDS: 0.9 % Sodium Chloride Flush 3 ML SYRINGE IVFLUSH ×2 (09:24→17:22)
[2021-01-13] MEDS: Lidocaine 4 % Patch ADH..PATCH 1 PATCH TRANSDERMA (09:24)
[2021-01-13] MEDS: Magnesium Sulfate/H2O 2 GM/50 ML PIGGYBACK IV (09:24)
[2021-01-13] MEDS: dilTIAZem HCL CD 120 MG CAP.ER.DEG PO (09:29)
[2021-01-13 10:12] LABS: Magnesium 1.5 mg/dL (1.6-2.6)
--- NOTE | 2021-01-13 10:53 | P.CONCA_ITS ---
History of Present Illness History of Present Illness Date of Service: 01/13/21 Consult reason: atrial fibrillation Chief complaint: SYNCOPE Narrative: This is a cardiology consultation regarding atrial fibrillation and syncope. Patient has a history of atrial fibrillation as well as congestive heart failure he also has frequent use of cocaine. Few days ago, he was brought in for elective outpatient cardioversion but he was positive for cocaine and hence that was cancer. He has had several admissions for congestive heart failure recently. In the interim, he was actually scheduled for yet another cardioversion later this week. However, it appears that he had a syncopal episode and brought to the ER and subsequently admitted. It appears that he was in a meeting at a sober house and all of a sudden he leaned over to 1 side and lost consciousness. Possibly for a few seconds but not entirely clear as to what happened. When he came around, he was apparently feeling dizzy. Otherwise no chest pain or palpitations or any other cardiac symptoms. Currently he states that he feels okay. Review of Systems Review of Systems: Yes all other systems are reviewed and are negative Cardiovascular: Cardiovascular: Reports as per HPI, Reports no additional cardiovascular complaints, Denies acrocyanosis, Denies cool extremities, Denies painful fingertips, Denies chest pain, Denies chest pain at rest, Denies diaphoresis, Denies syncope, Denies irregular heart rhythm, Denies claudication, Reports leg edema, Denies lightheadedness, Denies palpitations and Reports dyspnea Respiratory: Respiratory: Reports dyspnea Neurologic: Denies syncope Endocrine: Endocrine: Denies palpitations PMFSH Past Medical History Medical History Afib Asthma Atrial fibrillation Bipolar disorder Cellulitis of left foot Cellulitis of left lower extremity Cocaine use Congestive heart failure DVT (deep venous thrombosis) Essential hypertension Gout Heart failure with reduced ejection fraction Hip osteoarthritis History of seizures Obesity Pacemaker PAF (paroxysmal atrial fibrillation) Polysubstance abuse Renal transplant recipient Second degree heart block Subdural hematoma Thrombocytopenia Tobacco abuse Unilateral primary osteoarthritis, left knee Urinary bladder cancer Family History Family History Father Prostate cancer Mother No problems noted. Brother Cancer Surgical History Surgical History Abscess of arm, left H/O cardiac radiofrequency ablation History of cardiac catheterization History of removal of cyst History of removal of cyst Kidney replaced by transplant Kidney transplant recipient Social History Social History Household Members: None Housing: Other Housing Other:: Rehab facility Do you presently have visiting nurse or other home services: Yes Alcohol intake: never Smoking Status: Current every day smoker Tobacco Type: Cigarette Packs Per Day: 1 Cigarettes Per Day: 3 Smoked in Last 30 Days: Yes Patient Interested in Nicotine Replacement: Yes Patient Given Instructions on How to Stop Smoking: Yes Date Education Initiated: 01/13/21 Second Hand Smoke Exposure: No Use of substances other than those prescribed or required for medical reasons: No Substance Use Type: Crack/Cocaine Substance Use Type Other:: once a week Substance Use Frequency: Chronic Longstanding Last Used Substance: Weeks (ago) Currently Displaying Signs/Symptoms of Drug Intoxication Withdrawal: No Any prior treatment program specific to substance use: Yes Have you been hit, kicked, punched, or otherwise hurt by someone within the past year? If so, by whom?: No Do you feel safe in your current relationship?: No Current Relationship Advance Directives: No Advance Directives Information Provided: No Advance Directives on File: No Advance Directives Date on File: 12/25/20 Do you have thoughts of harming others: None Do you have a plan to hurt others: No Plan Recently lost weight without trying: No Eating poorly because of decreased appetite: No Nutrition Risks: No Nutritional Risk Poor oral hygiene: No service: No Current occupational status: retired Meds Allergies Allergy/AdvReac Type Severity Reaction Status Date / Time diltiazem [From Cardizem] Allergy Unknown Dizziness Verified 01/07/21 10:19 indomethacin [Indocin] Allergy Unknown Unknown Verified 01/07/21 10:19 Active Medications: Current Medications Generic Name Dose Route Start Last Admin Trade Name Freq PRN Reason Stop Dose Admin Acetaminophen 650 mg 01/12/21 21:51 Acetaminophen 325 Mg Tablet PO Q6H PRN Pain, Mild (Pain Scale 1-3) Albuterol Sulfate 2 puff 01/12/21 21:51 Albuterol Sulfate 90 Mcg 8 Gm Inhaler INHALE Q6H PRN Respiratory Distress Amiodarone HCl 400 mg 01/13/21 10:00 Amiodarone Hcl 200 Mg Tablet PO BID YOLANDA Aripiprazole 30 mg 01/13/21 09:00 01/13/21 09:21 Aripiprazole 30 Mg Tablet PO 30 mg DAILY YOLANDA Administration Cyclobenzaprine HCl 10 mg 01/12/21 21:51 Cyclobenzaprine Hcl 10 Mg Tablet PO TID PRN muscle spasm Divalproex Sodium 500 mg 01/13/21 09:00 01/13/21 09:22 Divalproex Sodium Er 500 Mg Tab.Er.24h PO 500 mg DAILY YOLANDA Administration Divalproex Sodium 1,000 mg 01/12/21 21:51 01/12/21 22:43 Divalproex Sodium Er 500 Mg Tab.Er.24h PO 1,000 mg BEDTIME YOLANDA Administration Docusate Sodium 100 mg 01/12/21 21:51 Docusate Sodium 100 Mg Capsule PO DAILY PRN Constipation Furosemide 40 mg 01/13/21 06:00 01/13/21 06:52 Furosemide 40 Mg/4 Ml Vial IVPUSH 40 mg Q12H YOLANDA Administration Protocol Hydralazine HCl 10 mg 01/12/21 21:51 01/13/21 09:21 Hydralazine Hcl 10 Mg Tablet PO 10 mg BID YOLANDA Administration Protocol Isosorbide Dinitrate 5 mg 01/12/21 21:51 01/13/21 09:20 Isosorbide Dinitrate 5 Mg Tablet PO 5 mg BID YOLANDA Administration Protocol Lidocaine 1 patch 01/13/21 09:00 01/13/21 09:24 Lidocaine 4 % Patch Adh..Patch TRANSDERMA 1 patch DAILY YOLANDA Administration Magnesium Oxide 400 mg 01/13/21 08:30 01/13/21 09:20 Magnesium Oxide 400 Mg Tablet PO 400 mg BIDPC YOLANDA Administration Metoprolol Tartrate 50 mg 01/12/21 21:51 01/13/21 09:23 Metoprolol Tartrate 50 Mg Tablet PO 50 mg BID YOLANDA Administration Protocol Omeprazole 20 mg 01/13/21 09:00 01/13/21 09:22 Omeprazole 20 Mg Capsule.Dr PO 20 mg DAILY YOLANDA Administration Ondansetron HCl 4 mg 01/12/21 21:51 Ondansetron Hcl 4 Mg/2 Ml Vial IVPUSH Q8H PRN Nausea and Vomiting Pharmacy Consult 1 each 01/12/21 19:05 Consult Rx Perform Med Rec MISCELLANE ONCE PRN Consult order Prednisone 10 mg 01/13/21 09:00 01/13/21 09:23 Prednisone 10 Mg Tablet PO 10 mg DAILY YOLANDA Administration Rivaroxaban 15 mg 01/13/21 09:00 01/13/21 09:23 Rivaroxaban 15 Mg Tablet PO 15 mg DAILY YOLANDA Administration Sodium Chloride 3 ml 01/13/21 00:00 01/13/21 09:24 0.9 % Sodium Chloride Flush 3 Ml Syringe IVFLUSH 3 ml QSHIFT [facility] Administration Tacrolimus 2 mg 01/12/21 21:51 01/13/21 09:27 Tacrolimus 1 Mg Capsule PO Not Given BID [facility] Home Medications Medication Instructions Recorded Confirmed Last Taken Type aripiprazole 30 mg tablet 30 mg PO DAILY 08/13/20 01/12/21 12/24/20 History omeprazole 20 mg capsule,delayed 20 mg PO DAILY 08/13/20 01/12/21 12/24/20 History release tacrolimus 1 mg capsule, 2 mg PO BID 08/13/20 01/12/21 12/24/20 History immediate-release albuterol sulfate 90 mcg/actuation 2 puff INHALATION Q6H PRN 09/29/20 01/12/21 Unknown History aerosol inhaler Phospha 250 Neutral 1 tab PO DAILY 12/08/20 01/12/21 12/24/20 History divalproex [Depakote ER] 1,000 mg PO BEDTIME 12/08/20 01/12/21 12/24/20 History divalproex [Depakote ER] 500 mg PO DAILY 12/08/20 01/12/21 12/24/20 History prednisone 10 mg PO DAILY 01/12/21 01/12/21 Unknown History Physical Exam Vital Signs: Vital Signs: Last Vital Signs Temp 98.0 F 01/13/21 07:37 Pulse 92 01/13/21 09:29 Resp 18 01/13/21 07:37 BP 160/80 H 01/13/21 09:29 Pulse Ox 95 01/13/21 07:37 Body Mass Index 28.3 Const: General: cooperative, comfortable and no acute distress Orientation/consciousness: patient oriented x3 HENMT: Other: Unremarkable Neck: Neck: Yes normal visual inspection Chest: Chest palpation & inspection: normal inspection of the chest Resp: Auscultation: clear to auscultation bilaterally, no crackles and no whee zes Cardio: Jugular venous distension: no JVD Palpation: normal PMI Heart sounds: S1 normal heart sound present, S2 normal heart sound present, no gallops, no murmurs and no rubs GI: Palpation (GI): Soft to palpation Back/Spine/Pelvis: Other: unremarkable Skin: General skin exam: no rashes or lesions noted Neuro: General: patient oriented x3 Extrem: General: Yes edema (1+) Psych: Mental Status: mental status grossly normal Results Labs and Meds Result diagrams: 01/13/21 05:36 01/13/21 05:36 Lab results: Laboratory Results - last 24 hr 01/12/21 01/12/21 01/12/21 15:46 15:46 15:46 WBC 4.2 L RBC 3.68 L Hgb 10.8 L Hct 34.5 L MCV 93.8 MCH 29.3 MCHC 31.3 RDW 16.3 H Plt Count 66 L D MPV 11.5 Immature Gran % (Auto) 1.7 H Neut % (Auto) 75.6 H Lymph % (Auto) 17.5 L [place] % (Auto) 5.0 Eos % (Auto) 0.2 Baso % (Auto) 0.0 Lymph # (Auto) 0.7 L [place] # (Auto) 0.2 Eos # (Auto) 0.0 Baso # (Auto) 0.0 Abs Immat Gran (auto) 0.07 H Absolute Neuts (auto) 3.2 Absolute Nucleated RBC 0.000 Nucleated RBC % (auto) 0.0 PT 20.1 H INR 1.7 H APTT 38.9 H Sodium 142 Potassium 5.4 H D Chloride 109 H Carbon Dioxide 27 Anion Gap 11 L BUN 49 H Creatinine 2.16 H Estim Creat Clear Calc 38.7 Estimated GFR 31 POC Glucose Random Glucose 146 H D Calcium 8.9 Magnesium 1.5 L Total Bilirubin 0.4 Direct Bilirubin 0.2 AST 11 ALT 12 Alkaline Phosphatase 71 D Total Creatine Kinase 20 L Troponin I High Sens B-Natriuretic Peptide Total Protein 5.3 L Albumin 3.1 L Lipase 8 Urine Opiates Screen Ur Barbiturates Screen Ur Phencyclidine Scrn Ur Amphetamines Screen U Benzodiazepines Scrn Urine Cocaine Screen U Marijuana (THC) Screen Ethyl Alcohol COVID-19 ([facility]) COVID-19 Clin Com 01/12/21 01/12/21 01/12/21 15:46 15:46 15:46 WBC RBC Hgb Hct MCV MCH MCHC RDW Plt Count MPV Immature Gran % (Auto) Neut % (Auto) Lymph % (Auto) [place] % (Auto) Eos % (Auto) Baso % (Auto) Lymph # (Auto) [place] # (Auto) Eos # (Auto) Baso # (Auto) Abs Immat Gran (auto) Absolute Neuts (auto) Absolute Nucleated RBC Nucleated RBC % (auto) PT INR APTT Sodium Potassium Chloride Carbon Dioxide Anion Gap BUN Creatinine Estim Creat Clear Calc Estimated GFR POC Glucose Random Glucose Calcium Magnesium Total Bilirubin Direct Bilirubin AST ALT Alkaline Phosphatase Total Creatine Kinase Troponin I High Sens 32.5 B-Natriuretic Peptide Total Protein Albumin Lipase Urine Opiates Screen Ur Barbiturates Screen Ur Phencyclidine Scrn Ur Amphetamines Screen U Benzodiazepines Scrn Urine Cocaine Screen U Marijuana (THC) Screen Ethyl Alcohol < 10 COVID-19 ([facility]) Negative COVID-19 Clin Com See Note 01/12/21 01/12/21 01/12/21 15:46 17:56 19:10 WBC RBC Hgb Hct MCV MCH MCHC RDW Plt Count MPV Immature Gran % (Auto) Neut % (Auto) Lymph % (Auto) [place] % (Auto) Eos % (Auto) Baso % (Auto) Lymph # (Auto) [place] # (Auto) Eos # (Auto) Baso # (Auto) Abs Immat Gran (auto) Absolute Neuts (auto) Absolute Nucleated RBC Nucleated RBC % (auto) PT INR APTT Sodium Potassium Chloride Carbon Dioxide Anion Gap BUN Creatinine Estim Creat Clear Calc Estimated GFR POC Glucose 143 H Random Glucose Calcium Magnesium Total Bilirubin Direct Bilirubin AST ALT Alkaline Phosphatase Total Creatine Kinase Troponin I High Sens B-Natriuretic Peptide 1192 H Total Protein Albumin Lipase Urine Opiates Screen Not Detected Ur Barbiturates Screen Not Detected Ur Phencyclidine Scrn Not Detected Ur Amphetamines Screen Not Detected U Benzodiazepines Scrn Not Detected Urine Cocaine Screen Not Detected U Marijuana (THC) Screen Not Detected Ethyl Alcohol COVID-19 ([facility]) COVID-19 First Opinion Com 01/12/21 01/13/21 01/13/21 19:39 05:36 05:36 WBC 4.5 L RBC 3.75 L Hgb 10.9 L Hct 35.0 L MCV 93.3 MCH 29.1 MCHC 31.1 RDW 16.5 H Plt Count 69 L MPV 11.8 Immature Gran % (Auto) 2.2 H Neut % (Auto) 59.1 Lymph % (Auto) 28.7 [place] % (Auto) 9.6 Eos % (Auto) 0.2 Baso % (Auto) 0.2 Lymph # (Auto) 1.3 [place] # (Auto) 0.4 Eos # (Auto) 0.0 Baso # (Auto) 0.0 Abs Immat Gran (auto) 0.10 H Absolute Neuts (auto) 2.7 Absolute Nucleated RBC 0.000 Nucleated RBC % (auto) 0.0 PT INR APTT Sodium 144 Potassium 4.5 Chloride 108 Carbon Dioxide 29 Anion Gap 12 BUN 47 H Creatinine 2.05 H Estim Creat Clear Calc 40.8 Estimated GFR 33 POC Glucose Random Glucose 150 H Calcium 8.8 Magnesium 1.5 L Total Bilirubin Direct Bilirubin AST ALT Alkaline Phosphatase Total Creatine Kinase Troponin I High Sens 30.2 B-Natriuretic Peptide Total Protein Albumin Lipase Urine Opiates Screen Ur Barbiturates Screen Ur Phencyclidine Scrn Ur Amphetamines Screen U Benzodiazepines Scrn Urine Cocaine Screen U Marijuana (THC) Screen Ethyl Alcohol COVID-19 ([facility]) COVID-19 Clin Com ECG Attestation: I personally reviewed and interpreted this ECG as follows: Interpretation: EKG with atrial fibrillation with right bundle-branch as well as left anterior fascicular block pattern. Rate of 90/Min. Run of broad complex tachycardia while in ER-not clear if it is atrial fibrillation and paced or ventricular in nature. Imaging Radiologist's impression: Impressions Head CT 01/12/21 14:49 IMPRESSION: No acute intracranial abnormality. Chest X-Ray 01/12/21 14:50 IMPRESSION: No acute intrathoracic disease. Assessment and Plan (1) Atrial fibrillation with rapid ventricular response: Status: Acute (2) Acute systolic (congestive) heart failure: Status: Acute (3) Essential hypertension: Status: Acute (4) Renal transplant recipient: Status: Acute (5) Bipolar disorder: Qualifiers: Active/Remission status: currently active Current bipolar episode type: manic Current episode severity: moderate Qualified Code(s): F31.12 - Bipolar disorder, current episode manic without psychotic features, moderate Status: Acute In the most recent echocardiogram, LVEF was 15-20%. Possibly tachycardia mediated cardiomyopathy. In the past, cardiac catheterization had shown no significant disease. Cocaine may also play a role in his cardiomyopathy but in this admission, cocaine is negative. We can start him on amiodarone 400 mg b.i.d.. Stop the diltiazem. Continue Xarelto. Plan for cardioversion tomorrow morning.
[2021-01-13 10:54] LABS: Hematocrit 34.8 % (42-52); Hemoglobin 10.9 g/dl (14.0-18.0); Mean Corpuscular HGB Conc 31.3 g/dl (31.0-36.0); Mean Corpuscular Hemoglobin 28.9 pg (27.0-33.0); Mean Corpuscular Volume 92.3 fL (80-98); Mean Platelet Volume 11.7 fL (9.4-12.4); Red Blood Count 3.77 X10*6/uL (4.60-5.80); Red Cell Distribution Width 16.1 % (11.0-16.0); White Blood Count 5.7 X10*3/uL (4.8-10.8)
[2021-01-13 10:58] LABS: Platelet Count 72 X10*3/uL (160-400)
--- NOTE | 2021-01-13 11:58 | MHC.CM.PN ---
CM met with Patient at bedside. Patient lives at the [facility] (recovery assistance to transition back to the community); Patient's goal is to return there at dc and CM has initiated and will follow for dc planning.PCP is Dr. Sumner and Patient uses a walker to assist with mobility.
[2021-01-13] MEDS: Amiodarone HCL 200 MG TABLET 400 MG PO ×2 (12:01→20:47)
--- NOTE | 2021-01-13 13:31 | P.PNIM_ITS ---
Subjective Subjective Date of Service: 01/13/21 Interval History: follow up for syncope, CHF seen and examined this morning denies shortness of breath, DRAKE, PND, ongoing leg edema for 2 days no further sycopal episodes Review of Systems Review of Systems: Yes all other systems are reviewed and are negative Constitutional Constitutional: Denies chills and Denies fever(s) Cardiovascular Cardiovascular: Denies chest pain Respiratory Respiratory: Denies cough Gastrointestinal Gastrointestinal: Denies abdominal pain Physical Exam Vital Signs: Vital Signs: Last Vital Signs Temp 97.4 F 01/13/21 11:29 Pulse 89 01/13/21 12:01 Resp 20 01/13/21 11:29 BP 160/58 H 01/13/21 12:01 Pulse Ox 95 01/13/21 11:29 Body Mass Index 28.3 Const: General: comfortable, no acute distress, alert and awake Nutritional Appearance: well nourished Orientation/consciousness: patient oriented x3 HENMT: Head: Yes normocephalic and Yes atraumatic Eyes: Sclerae: sclerae normal Chest: Chest palpation & inspection: normal inspection of the chest Resp: Effort & Inspection: normal respiratory effort and no respiratory distress Cardio: Rate: regular rate Rhythm: abnormal rhythm (irregular) GI: Palpation (GI): Soft to palpation and nontender Neuro: General: patient oriented x3 Cranial nerves: Yes CN's II-XII intact bilaterally and Yes Bilaterally intact EOM present Extrem: Other: 3+ edema b/l Objective Data Current Medications Generic Name Dose Route Start Last Admin Trade Name Freq PRN Reason Stop Dose Admin Acetaminophen 650 mg 01/12/21 21:51 Acetaminophen 325 Mg Tablet PO Q6H PRN Pain, Mild (Pain Scale 1-3) Albuterol Sulfate 2 puff 01/12/21 21:51 Albuterol Sulfate 90 Mcg 8 Gm Inhaler INHALE Q6H PRN Respiratory Distress Amiodarone HCl 400 mg 01/13/21 10:00 01/13/21 12:01 Amiodarone Hcl 200 Mg Tablet PO 400 mg BID YOLANDA Administration Aripiprazole 30 mg 01/13/21 09:00 01/13/21 09:21 Aripiprazole 30 Mg Tablet PO 30 mg DAILY YOLANDA Administration Cyclobenzaprine HCl 10 mg 01/12/21 21:51 Cyclobenzaprine Hcl 10 Mg Tablet PO TID PRN muscle spasm Divalproex Sodium 500 mg 01/13/21 09:00 01/13/21 09:22 Divalproex Sodium Er 500 Mg Tab.Er.24h PO 500 mg DAILY YOLANDA Administration Divalproex Sodium 1,000 mg 01/12/21 21:51 01/12/21 22:43 Divalproex Sodium Er 500 Mg Tab.Er.24h PO 1,000 mg BEDTIME YOLANDA Administration Docusate Sodium 100 mg 01/12/21 21:51 Docusate Sodium 100 Mg Capsule PO DAILY PRN Constipation Furosemide 40 mg 01/13/21 06:00 01/13/21 06:52 Furosemide 40 Mg/4 Ml Vial IVPUSH 40 mg Q12H YOLANDA Administration Protocol Hydralazine HCl 10 mg 01/12/21 21:51 01/13/21 09:21 Hydralazine Hcl 10 Mg Tablet PO 10 mg BID YOLANDA Administration Protocol Isosorbide Dinitrate 5 mg 01/12/21 21:51 01/13/21 09:20 Isosorbide Dinitrate 5 Mg Tablet PO 5 mg BID YOLANDA Administration Protocol Lidocaine 1 patch 01/13/21 09:00 01/13/21 09:24 Lidocaine 4 % Patch Adh..Patch TRANSDERMA 1 patch DAILY YOLANDA Administration Magnesium Oxide 400 mg 01/13/21 08:30 01/13/21 09:20 Magnesium Oxide 400 Mg Tablet PO 400 mg BIDPC YOLANDA Administration Metoprolol Tartrate 50 mg 01/12/21 21:51 01/13/21 09:23 Metoprolol Tartrate 50 Mg Tablet PO 50 mg BID YOLANDA Administration Protocol Omeprazole 20 mg 01/13/21 09:00 01/13/21 09:22 Omeprazole 20 Mg Capsule.Dr PO 20 mg DAILY YOLANDA Administration Ondansetron HCl 4 mg 01/12/21 21:51 Ondansetron Hcl 4 Mg/2 Ml Vial IVPUSH Q8H PRN Nausea and Vomiting Pharmacy Consult 1 each 01/12/21 19:05 Consult Rx Perform Med Rec MISCELLANE ONCE PRN Consult order Prednisone 10 mg 01/13/21 09:00 01/13/21 09:23 Prednisone 10 Mg Tablet PO 10 mg DAILY YOLANDA Administration Rivaroxaban 15 mg 01/13/21 09:00 01/13/21 09:23 Rivaroxaban 15 Mg Tablet PO 15 mg DAILY YOLANDA Administration Sodium Chloride 3 ml 01/13/21 00:00 01/13/21 09:24 0.9 % Sodium Chloride Flush 3 Ml Syringe IVFLUSH 3 ml QSHIFT [facility] Administration Tacrolimus 2 mg 01/12/21 21:51 01/13/21 09:27 Tacrolimus 1 Mg Capsule PO Not Given BID [facility] Labs CBC & Chem 7: 01/13/21 10:27 01/13/21 05:36 Assessment and Plan (1) Renal failure, acute on chronic: Status: Acute (2) Renal transplant disorder: Status: Acute (3) Acute systolic (congestive) heart failure: Status: Acute (4) PAF (paroxysmal atrial fibrillation): Status: Acute Assessment and Plan: This is a 60-year-old male with past medical history of AFib, bipolar disorder, cocaine abuse, CHF, DVT, HTN, gout, kidney transplant, second-degree heart block status post pacemaker, subdural hematoma, thrombocytopenia, who presents to the hospital with complaints of syncopal episode while in a meeting found to have ANA, CHF. syncope ? r/t to arrhythmia. patient had episode of AFib with aberrancy in the ED troponin flat x 2 - cardiology following, plan for CV in AM - tele monitoring ANA on CKD h/o renal transplant - creatinine from December of 1.9, 2.16 on admission, trending down slightly to 2.05 - nephrology consult pending - follow BMP closely given IV lasix acute on chronic HFrEF ECHO from 11/29 shows EF of 15-20% with severe global hypokinesis - continue IV Lasix 40 b.i.d. - low-sodium diet, strict I&O, daily weight - cardiology following AFib - plan for cardioversion in a.m. - will continue metoprolol and rivaroxaban - stop cardizem, start amiodorone - cardiology following Thrombocytopenia chronic, but below baseline ? r/t depakote ?tacrolimus -follow CBC history of kidney transplant - continue tacrolimus,prednisone - nephrology consultation hypomagnesemia - replaced - continue his home magnesium supplement - follow magnesium level HTN BP somewhat elevated. Will follow, may need med adjustment - continue metoprolol, hydralazine as well as Imdur bipolar disorder - continue Depakote, abilify DVT prophylaxis: Rivaroxaban
--- NOTE | 2021-01-13 14:23 | P.PNCA_ITS ---
Subjective Subjective Date of Service: 01/13/21 Physical Exam Vital Signs: Last Vital Signs Temp 97.4 F 01/13/21 11:29 Pulse 89 01/13/21 12:01 Resp 20 01/13/21 11:29 BP 160/58 H 01/13/21 12:01 Pulse Ox 95 01/13/21 11:29 Body Mass Index 28.3 Results Labs and Meds Result diagrams: 01/13/21 10:27 01/13/21 05:36 Lab results: Laboratory Results - last 24 hr 01/12/21 01/12/21 01/12/21 15:46 15:46 15:46 WBC 4.2 L RBC 3.68 L Hgb 10.8 L Hct 34.5 L MCV 93.8 MCH 29.3 MCHC 31.3 RDW 16.3 H Plt Count 66 L D MPV 11.5 Immature Gran % (Auto) 1.7 H Neut % (Auto) 75.6 H Lymph % (Auto) 17.5 L [place] % (Auto) 5.0 Eos % (Auto) 0.2 Baso % (Auto) 0.0 Lymph # (Auto) 0.7 L [place] # (Auto) 0.2 Eos # (Auto) 0.0 Baso # (Auto) 0.0 Abs Immat Gran (auto) 0.07 H Absolute Neuts (auto) 3.2 Absolute Nucleated RBC 0.000 Nucleated RBC % (auto) 0.0 PT 20.1 H INR 1.7 H APTT 38.9 H Sodium 142 Potassium 5.4 H D Chloride 109 H Carbon Dioxide 27 Anion Gap 11 L BUN 49 H Creatinine 2.16 H Estim Creat Clear Calc 38.7 Estimated GFR 31 POC Glucose Random Glucose 146 H D Calcium 8.9 Magnesium 1.5 L Total Bilirubin 0.4 Direct Bilirubin 0.2 AST 11 ALT 12 Alkaline Phosphatase 71 D Total Creatine Kinase 20 L Troponin I High Sens B-Natriuretic Peptide Total Protein 5.3 L Albumin 3.1 L Lipase 8 Urine Opiates Screen Ur Barbiturates Screen Ur Phencyclidine Scrn Ur Amphetamines Screen U Benzodiazepines Scrn Urine Cocaine Screen U Marijuana (THC) Screen Ethyl Alcohol COVID-19 ([facility]) COVID-19 Clin Com 01/12/21 01/12/21 01/12/21 15:46 15:46 15:46 WBC RBC Hgb Hct MCV MCH MCHC RDW Plt Count MPV Immature Gran % (Auto) Neut % (Auto) Lymph % (Auto) [place] % (Auto) Eos % (Auto) Baso % (Auto) Lymph # (Auto) [place] # (Auto) Eos # (Auto) Baso # (Auto) Abs Immat Gran (auto) Absolute Neuts (auto) Absolute Nucleated RBC Nucleated RBC % (auto) PT INR APTT Sodium Potassium Chloride Carbon Dioxide Anion Gap BUN Creatinine Estim Creat Clear Calc Estimated GFR POC Glucose Random Glucose Calcium Magnesium Total Bilirubin Direct Bilirubin AST ALT Alkaline Phosphatase Total Creatine Kinase Troponin I High Sens 32.5 B-Natriuretic Peptide Total Protein Albumin Lipase Urine Opiates Screen Ur Barbiturates Screen Ur Phencyclidine Scrn Ur Amphetamines Screen U Benzodiazepines Scrn Urine Cocaine Screen U Marijuana (THC) Screen Ethyl Alcohol < 10 COVID-19 ([facility]) Negative COVID-[place] See Note 01/12/21 01/12/21 01/12/21 15:46 17:56 19:10 WBC RBC Hgb Hct MCV MCH MCHC RDW Plt Count MPV Immature Gran % (Auto) Neut % (Auto) Lymph % (Auto) [place] % (Auto) Eos % (Auto) Baso % (Auto) Lymph # (Auto) [place] # (Auto) Eos # (Auto) Baso # (Auto) Abs Immat Gran (auto) Absolute Neuts (auto) Absolute Nucleated RBC Nucleated RBC % (auto) PT INR APTT Sodium Potassium Chloride Carbon Dioxide Anion Gap BUN Creatinine Estim Creat Clear Calc Estimated GFR POC Glucose 143 H Random Glucose Calcium Magnesium Total Bilirubin Direct Bilirubin AST ALT Alkaline Phosphatase Total Creatine Kinase Troponin I High Sens B-Natriuretic Peptide 1192 H Total Protein Albumin Lipase Urine Opiates Screen Not Detected Ur Barbiturates Screen Not Detected Ur Phencyclidine Scrn Not Detected Ur Amphetamines Screen Not Detected U Benzodiazepines Scrn Not Detected Urine Cocaine Screen Not Detected U Marijuana (THC) Screen Not Detected Ethyl Alcohol COVID-19 ([facility]) [facility]-[place] 01/12/21 01/13/21 01/13/21 19:39 05:36 05:36 WBC 4.5 L RBC 3.75 L Hgb 10.9 L Hct 35.0 L MCV 93.3 MCH 29.1 MCHC 31.1 RDW 16.5 H Plt Count 69 L MPV 11.8 Immature Gran % (Auto) 2.2 H Neut % (Auto) 59.1 Lymph % (Auto) 28.7 [place] % (Auto) 9.6 Eos % (Auto) 0.2 Baso % (Auto) 0.2 Lymph # (Auto) 1.3 [place] # (Auto) 0.4 Eos # (Auto) 0.0 Baso # (Auto) 0.0 Abs Immat Gran (auto) 0.10 H Absolute Neuts (auto) 2.7 Absolute Nucleated RBC 0.000 Nucleated RBC % (auto) 0.0 PT INR APTT Sodium 144 Potassium 4.5 Chloride 108 Carbon Dioxide 29 Anion Gap 12 BUN 47 H Creatinine 2.05 H Estim Creat Clear Calc 40.8 Estimated GFR 33 POC Glucose Random Glucose 150 H Calcium 8.8 Magnesium 1.5 L Total Bilirubin Direct Bilirubin AST ALT Alkaline Phosphatase Total Creatine Kinase Troponin I High Sens 30.2 B-Natriuretic Peptide Total Protein Albumin Lipase Urine Opiates Screen Ur Barbiturates Screen Ur Phencyclidine Scrn Ur Amphetamines Screen U Benzodiazepines Scrn Urine Cocaine Screen U Marijuana (THC) Screen Ethyl Alcohol COVID-19 ([facility]) COVID-19 [facility] Com 01/13/21 10:27 WBC 5.7 RBC 3.77 L Hgb 10.9 L Hct 34.8 L MCV 92.3 MCH 28.9 MCHC 31.3 RDW 16.1 H Plt Count 72 L MPV 11.7 Immature Gran % (Auto) Neut % (Auto) Lymph % (Auto) [place] % (Auto) Eos % (Auto) Baso % (Auto) Lymph # (Auto) [place] # (Auto) Eos # (Auto) Baso # (Auto) Abs Immat Gran (auto) Absolute Neuts (auto) Absolute Nucleated RBC 0.000 Nucleated RBC % (auto) 0.0 PT INR APTT Sodium Potassium Chloride Carbon Dioxide Anion Gap BUN Creatinine Estim Creat Clear Calc Estimated GFR POC Glucose Random Glucose Calcium Magnesium Total Bilirubin Direct Bilirubin AST ALT Alkaline Phosphatase Total Creatine Kinase Troponin I High Sens B-Natriuretic Peptide Total Protein Albumin Lipase Urine Opiates Screen Ur Barbiturates Screen Ur Phencyclidine Scrn Ur Amphetamines Screen U Benzodiazepines Scrn Urine Cocaine Screen U Marijuana (THC) Screen Ethyl Alcohol COVID-19 ([facility]) COVID-19 Clin Com Imaging Radiologist's impression: Impressions Head CT 01/12/21 14:49 IMPRESSION: No acute intracranial abnormality. Chest X-Ray 01/12/21 14:50 IMPRESSION: No acute intrathoracic disease. Progress Note: A&P Assessment and plan (1) Pacemaker: Problem details: (10/2019 - due to mobitz2 heart block) Status: Inactive Assessment and Plan: [employer] dual chamber PPM interrogation today by me. Battery 4.8-9.8 hears, A and V thresholds, sensitivity, impedance all reviewed, DDD mode, low rate 60, upper tracking rate 130, AP <1%, INCLUSION TEACHER 4.3%, AT/ AF> 99% of time, Freq alerts for high V rates, reviewed and all are AF with RVR. No finding of NSVT in recent weeks or at time of admit that correlates with his syncope. Fall Risk Details Current Medications: Current Medications Generic Name Dose Route Start Last Admin Trade Name Freq PRN Reason Stop Dose Admin Acetaminophen 650 mg 01/12/21 21:51 Acetaminophen 325 Mg Tablet PO Q6H PRN Pain, Mild (Pain Scale 1-3) Albuterol Sulfate 2 puff 01/12/21 21:51 Albuterol Sulfate 90 Mcg 8 Gm Inhaler INHALE Q6H PRN Respiratory Distress Amiodarone HCl 400 mg 01/13/21 10:00 01/13/21 12:01 Amiodarone Hcl 200 Mg Tablet PO 400 mg BID YOLANDA Administration Aripiprazole 30 mg 01/13/21 09:00 01/13/21 09:21 Aripiprazole 30 Mg Tablet PO 30 mg DAILY YOLANDA Administration Cyclobenzaprine HCl 10 mg 01/12/21 21:51 Cyclobenzaprine Hcl 10 Mg Tablet PO TID PRN muscle spasm Divalproex Sodium 500 mg 01/13/21 09:00 01/13/21 09:22 Divalproex Sodium Er 500 Mg Tab.Er.24h PO 500 mg DAILY YOLANDA Administration Divalproex Sodium 1,000 mg 01/12/21 21:51 01/12/21 22:43 Divalproex Sodium Er 500 Mg Tab.Er.24h PO 1,000 mg BEDTIME YOLANDA Administration Docusate Sodium 100 mg 01/12/21 21:51 Docusate Sodium 100 Mg Capsule PO DAILY PRN Constipation Furosemide 40 mg 01/13/21 06:00 01/13/21 06:52 Furosemide 40 Mg/4 Ml Vial IVPUSH 40 mg Q12H YOLANDA Administration Protocol Hydralazine HCl 10 mg 01/12/21 21:51 01/13/21 09:21 Hydralazine Hcl 10 Mg Tablet PO 10 mg BID [facility] Administration Protocol Isosorbide Dinitrate 5 mg 01/12/21 21:51 01/13/21 09:20 Isosorbide Dinitrate 5 Mg Tablet PO 5 mg BID YOLANDA Administration Protocol Lidocaine 1 patch 01/13/21 09:00 01/13/21 09:24 Lidocaine 4 % Patch Adh..Patch TRANSDERMA 1 patch DAILY YOLANDA Administration Magnesium Oxide 400 mg 01/13/21 08:30 01/13/21 09:20 Magnesium Oxide 400 Mg Tablet PO 400 mg BIDPC YOLANDA Administration Metoprolol Tartrate 50 mg 01/12/21 21:51 01/13/21 09:23 Metoprolol Tartrate 50 Mg Tablet PO 50 mg BID YOLANDA Administration Protocol Omeprazole 20 mg 01/13/21 09:00 01/13/21 09:22 Omeprazole 20 Mg Capsule.Dr PO 20 mg DAILY YOLANDA Administration Ondansetron HCl 4 mg 01/12/21 21:51 Ondansetron Hcl 4 Mg/2 Ml Vial IVPUSH Q8H PRN Nausea and Vomiting Pharmacy Consult 1 each 01/12/21 19:05 Consult Rx Perform Med Rec MISCELLANE ONCE PRN Consult order Prednisone 10 mg 01/13/21 09:00 01/13/21 09:23 Prednisone 10 Mg Tablet PO 10 mg DAILY YOLANDA Administration Rivaroxaban 15 mg 01/13/21 09:00 01/13/21 09:23 Rivaroxaban 15 Mg Tablet PO 15 mg DAILY YOLANDA Administration Sodium Chloride 3 ml 01/13/21 00:00 01/13/21 09:24 0.9 % Sodium Chloride Flush 3 Ml Syringe IVFLUSH 3 ml QSHIFT YOLANDA Administration Tacrolimus 2 mg 01/12/21 21:51 01/13/21 09:27 Tacrolimus 1 Mg Capsule PO Not Given BID [facility] Time Spent With Patient Time: Total time spent is greater than 50% in coordination of care (as documented) at patient's floor/unit and/or counseling patient: Time with patient: less than 15 minutes
--- NOTE | 2021-01-13 14:53 | ECG_ITS ---
Test Reason : AFIB Blood Pressure : / mmHG Vent. Rate : 078 BPM Atrial Rate : 326 BPM P-R Int : 000 ms QRS Dur : 132 ms QT Int : 404 ms P-R-T Axes : 000 -62 141 degrees QTc Int : 460 ms Atrial fibrillation with occasional ventricular-paced complexes Right bundle branch block Left anterior fascicular block Bifascicular block Abnormal ECG When compared with ECG of 13-JAN-2021 02:04, No significant changes seen Referred By: Valeri Alvarado Electronically Signed By:JENNIFER MCLEOD
--- NOTE | 2021-01-13 16:08 | PM.CNNEP ---
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 Adm with syncopal espidoe and w/u in progress. He states he felt dizzy/LHeaded and then passed out. No CP/pal. No loss of urine/stool. He has occ LHeaded epsidoes . He was at [facility] [place] with CAP. His SCr 1.7 at that time. He c/o incr leg swelling which has been an ongoig problem. Review of Systems Review of Systems Constitutional : No Fever, No Chills ENT/Mouth : No sore throat, No Rhinorrhea, No Swallowing Difficulty Eyes: No Eye Pain, No Swelling, No Redness Cardiovascular : No Chest Pain, no SOB, No Orthopnea, positive Edema Respiratory : No Cough, No Sputum, No Wheezing, no dyspnea Gastrointestinal : No Nausea, No Vomiting, No Diarrhea, No abdominal Pain, No Hematochezia, No Melena Genitourinary : No Dysuria, No Urinary Frequency, No Hematuria Musculoskeletal : No joint pain, No Myalgias Skin : No Skin Lesions, No rash Neuro : No Weakness, No Numbness, No Dizziness, No Headache, pos syncope Psych : No Anxiety/Panic, No Depression Heme/Lymph: No Bruising, No Lymphadenopathy Endocrine : No Polyuria, No Polydipsia All other systems reviewed and are negative Yes all other systems are reviewed and are negative Constitutional: Denies chills and Denies fever(s) Cardiovascular: Reports as per HPI, Reports no additional cardiovascular complaints, Denies acrocyanosis, Denies cool extremities, Denies painful fingertips, Denies chest pain, Denies chest pain at rest, Denies diaphoresis, Denies syncope, Denies irregular heart rhythm, Denies claudication, Reports leg edema, Denies lightheadedness, Denies palpitations and Reports dyspnea Respiratory: Denies cough and Reports dyspnea Gastrointestinal: Denies abdominal pain Denies syncope Endocrine: Denies palpitations [facility] Past Medical History Medical History (Updated 01/13/21 @ 14:25 by Neetu Trejo NP-C) Afib Asthma Atrial fibrillation Bipolar disorder Cellulitis of left foot Cellulitis of left lower extremity Cocaine use Congestive heart failure DVT (deep venous thrombosis) Essential hypertension Gout Heart failure with reduced ejection fraction Hip osteoarthritis History of seizures Obesity Pacemaker PAF (paroxysmal atrial fibrillation) Polysubstance abuse Renal transplant recipient Second degree heart block Subdural hematoma Thrombocytopenia Tobacco abuse Unilateral primary osteoarthritis, left knee Urinary bladder cancer Family History Family History Father Prostate cancer Mother No problems noted. Brother Cancer Surgical History Surgical History Abscess of arm, left H/O cardiac radiofrequency ablation History of cardiac catheterization History of removal of cyst History of removal of cyst Kidney replaced by transplant Kidney transplant recipient Social History Social History Household Members: None Housing: Other Housing Other:: Rehab facility Do you presently have visiting nurse or other home services: Yes Alcohol intake: never Smoking Status: Current every day smoker Tobacco Type: Cigarette Packs Per Day: 1 Cigarettes Per Day: 3 Smoked in Last 30 Days: Yes Patient Interested in Nicotine Replacement: Yes Patient Given Instructions on How to Stop Smoking: Yes Date Education Initiated: 01/13/21 Second Hand Smoke Exposure: No Use of substances other than those prescribed or required for medical reasons: No Substance Use Type: Crack/Cocaine Substance Use Type Other:: once a week Substance Use Frequency: Chronic Longstanding Last Used Substance: Weeks (ago) Currently Displaying Signs/Symptoms of Drug Intoxication Withdrawal: No Any prior treatment program specific to substance use: Yes Have you been hit, kicked, punched, or otherwise hurt by someone within the past year? If so, by whom?: No Do you feel safe in your current relationship?: No Current Relationship Advance Directives: No Advance Directives Information Provided: No Advance Directives on File: No Advance Directives Date on File: 12/25/20 Do you have thoughts of harming others: None Do you have a plan to hurt others: No Plan Recently lost weight without trying: No Eating poorly because of decreased appetite: No Nutrition Risks: No Nutritional Risk Poor oral hygiene: No service: No Current occupational status: unemployed Meds Allergies Allergy/AdvReac Type Severity Reaction Status Date / Time diltiazem [From Cardizem] Allergy Unknown Dizziness Verified 01/07/21 10:19 indomethacin [Indocin] Allergy Unknown Unknown Verified 01/07/21 10:19 Active Medications: Current Medications Generic Name Dose Route Start Last Admin Trade Name Umang PRN Reason Stop Dose Admin Acetaminophen 650 mg 01/12/21 21:51 Acetaminophen 325 Mg Tablet PO Q6H PRN Pain, Mild (Pain Scale 1-3) Albuterol Sulfate 2 puff 01/12/21 21:51 Albuterol Sulfate 90 Mcg 8 Gm Inhaler INHALE Q6H PRN Respiratory Distress Amiodarone HCl 400 mg 01/13/21 10:00 01/13/21 12:01 Amiodarone Hcl 200 Mg Tablet PO 400 mg BID YOLANDA Administration Aripiprazole 30 mg 01/13/21 09:00 01/13/21 09:21 Aripiprazole 30 Mg Tablet PO 30 mg DAILY YOLANDA Administration Cyclobenzaprine HCl 10 mg 01/12/21 21:51 Cyclobenzaprine Hcl 10 Mg Tablet PO TID PRN muscle spasm Divalproex Sodium 500 mg 01/13/21 09:00 01/13/21 09:22 Divalproex Sodium Er 500 Mg Tab.Er.24h PO 500 mg DAILY YOLANDA Administration Divalproex Sodium 1,000 mg 01/12/21 21:51 01/12/21 22:43 Divalproex Sodium Er 500 Mg Tab.Er.24h PO 1,000 mg BEDTIME YOLANDA Administration Docusate Sodium 100 mg 01/12/21 21:51 Docusate Sodium 100 Mg Capsule PO DAILY PRN Constipation Furosemide 40 mg 01/13/21 06:00 01/13/21 06:52 Furosemide 40 Mg/4 Ml Vial IVPUSH 40 mg Q12H YOLANDA Administration Protocol Hydralazine HCl 10 mg 01/12/21 21:51 01/13/21 09:21 Hydralazine Hcl 10 Mg Tablet PO 10 mg BID YOLANDA Administration Protocol Isosorbide Dinitrate 5 mg 01/12/21 21:51 01/13/21 09:20 Isosorbide Dinitrate 5 Mg Tablet PO 5 mg BID YOLANDA Administration Protocol Lidocaine 1 patch 01/13/21 09:00 01/13/21 09:24 Lidocaine 4 % Patch Adh..Patch TRANSDERMA 1 patch DAILY YOLANDA Administration Magnesium Oxide 400 mg 01/13/21 08:30 01/13/21 09:20 Magnesium Oxide 400 Mg Tablet PO 400 mg BIDPC YOLANDA Administration Metoprolol Tartrate 50 mg 01/12/21 21:51 01/13/21 09:23 Metoprolol Tartrate 50 Mg Tablet PO 50 mg BID YOLANDA Administration Protocol Omeprazole 20 mg 01/13/21 09:00 01/13/21 09:22 Omeprazole 20 Mg Capsule. PO 20 mg DAILY YOLANDA Administration Ondansetron HCl 4 mg 01/12/21 21:51 Ondansetron Hcl 4 Mg/2 Ml Vial IVPUSH Q8H PRN Nausea and Vomiting Pharmacy Consult 1 each 01/12/21 19:05 Consult Rx Perform Med Rec MISCELLANE ONCE PRN Consult order Prednisone 10 mg 01/13/21 09:00 01/13/21 09:23 Prednisone 10 Mg Tablet PO 10 mg DAILY YOLANDA Administration Rivaroxaban 15 mg 01/13/21 09:00 01/13/21 09:23 Rivaroxaban 15 Mg Tablet PO 15 mg DAILY YOLANDA Administration Sodium Chloride 3 ml 01/13/21 00:00 01/13/21 09:24 0.9 % Sodium Chloride Flush 3 Ml Syringe IVFLUSH 3 ml QSHIFT [facility] Administration Tacrolimus 2 mg 01/12/21 21:51 01/13/21 09:27 Tacrolimus 1 Mg Capsule PO Not Given BID [facility] Home Medications Medication Instructions Recorded Confirmed Last Taken Type aripiprazole 30 mg tablet 30 mg PO DAILY 08/13/20 01/12/21 12/24/20 History omeprazole 20 mg capsule,delayed 20 mg PO DAILY 08/13/20 01/12/21 12/24/20 History release tacrolimus 1 mg capsule, 2 mg PO BID 08/13/20 01/12/21 12/24/20 History immediate-release albuterol sulfate 90 mcg/actuation 2 puff INHALATION Q6H PRN 09/29/20 01/12/21 Unknown History aerosol inhaler Phospha 250 Neutral 1 tab PO DAILY 12/08/20 01/12/21 12/24/20 History divalproex [Depakote ER] 1,000 mg PO BEDTIME 12/08/20 01/12/21 12/24/20 History divalproex [Depakote ER] 500 mg PO DAILY 12/08/20 01/12/21 12/24/20 History prednisone 10 mg PO DAILY 01/12/21 01/12/21 Unknown History Physical Exam Vital Signs: Last Vital Signs Temp 98.1 F 01/13/21 15:05 Pulse 80 01/13/21 15:10 Resp 18 01/13/21 15:05 BP 123/82 01/13/21 15:10 Pulse Ox 97 01/13/21 15:05 Body Mass Index 28.3 Const General: cooperative, comfortable, no acute distress, alert and awake Nutritional Appearance: well nourished Orientation/consciousness: patient oriented x3 HENMT Other: Unremarkable Head: Yes normocephalic and Yes atraumatic Eyes General: appearance normal, both eyes and all related structures Sclerae: sclerae normal Neck Neck: Yes normal visual inspection Chest Chest palpation & inspection: normal inspection of the chest Resp Effort & Inspection: normal respiratory effort and no respiratory distress Auscultation: clear to auscultation bilaterally, no crackles and no wheezes Cardio Jugular venous distension: no JVD Palpation: normal PMI Rate: regular rate Rhythm: regular rhythm and abnormal rhythm (irregular) Heart sounds: S1 normal heart sound present, S2 normal heart sound present, no gallops, no murmurs and no rubs GI Palpation (GI): Soft to palpation and nontender Auscultation: normal bowel sounds Back/Spine/Pelvis Other: unremarkable Skin General skin exam: no rashes or lesions noted Neuro General: patient oriented x3 Cranial nerves: Yes CN's II-XII intact bilaterally and Yes Bilaterally intact EOM present Cognition (Neuro): normal cognition Extrem Other: 3+ edema b/l General: Yes normal to inspection and Yes edema (1+) Psych Mental Status: mental status grossly normal Results Lab Results Result Diagrams: 01/13/21 10:27 01/13/21 05:36 Lab results: Chemistry 01/12/21 01/13/21 15:46 05:36 Sodium 142 144 Potassium 5.4 H D 4.5 Carbon Dioxide 27 29 BUN 49 H 47 H Creatinine 2.16 H 2.05 H Calcium 8.9 8.8 Hematology 01/12/21 01/13/21 01/13/21 15:46 05:36 10:27 WBC 4.2 L 4.5 L 5.7 Hgb 10.8 L 10.9 L 10.9 L Plt Count 66 L D 69 L 72 L Assessment and Plan (1) Pacemaker: Problem details: (10/2019 - due to mobitz2 heart block) Status: Inactive 1. Syncope Event: w/u in progress 2. ANA: SCr has ranged typically in 1.5-2.0 range and he has signif Uprot in past; ques of prog CKD chronic rejection, [facility] ass[facility] or transplant Glomopathy 3. Edema: agian need to furhter eval for liver, card or renal dysfunc 4. DM 5. Pafibb 6. H/O cocaine use REC: cont current meds; check urine studies and tacro level; avoid Ntoxins; will r/s diuretics will follow wit team
[2021-01-13 18:01] LABS: Total Protein Urine Random 28 mg/dL (<12)
[2021-01-13 18:27] LABS: Creatinine Urine 44.02 mg/dL
[2021-01-13] MEDS: Tacrolimus 1 MG CAPSULE 2 MG PO (20:48)
[2021-01-13] MEDS: Divalproex Sodium ER 500 MG TAB.ER.24H 1000 MG PO (20:49)
[2021-01-14] VITALS (18 sets, daily range): BP systolic 102–159; BP diastolic 58–99; PULSE 66–86; RESP 15–18; TEMP 36.2–37; O2SAT 94–100; BMI 28.0
--- NOTE | 2021-01-14 | ECG_ITS ---
Test Reason : S/P CARDIOVERSION Blood Pressure : / mmHG Vent. Rate : 069 BPM Atrial Rate : 092 BPM P-R Int : 000 ms QRS Dur : 146 ms QT Int : 448 ms P-R-T Axes : 000 -59 070 degrees QTc Int : 480 ms Atrial fibrillation with occasional ventricular-paced complexes Right bundle branch block Left anterior fascicular block Abnormal ECG When compared with ECG of 13-JAN-2021 14:57, No significant changes seen Referred By: Jennifer Mcleod Electronically Signed By:JENNIFER MCLEOD
[2021-01-14] MEDS: 0.9 % Sodium Chloride Flush 3 ML SYRINGE IVFLUSH ×4 (00:09→21:11)
[2021-01-14] MEDS: Furosemide 40 MG/4 ML VIAL IVPUSH (05:31)
[2021-01-14 06:53] LABS: Hematocrit 36.4 % (42-52); Hemoglobin 11.6 g/dl (14.0-18.0); Mean Corpuscular HGB Conc 31.9 g/dl (31.0-36.0); Mean Corpuscular Hemoglobin 29.6 pg (27.0-33.0); Mean Corpuscular Volume 92.9 fL (80-98); Mean Platelet Volume 11.7 fL (9.4-12.4); Red Blood Count 3.92 X10*6/uL (4.60-5.80); Red Cell Distribution Width 16.5 % (11.0-16.0); White Blood Count 5.8 X10*3/uL (4.8-10.8)
[2021-01-14 07:02] LABS: Platelet Count 84 X10*3/uL (160-400)
[2021-01-14 07:06] LABS: Anion Gap 10 (12-20); Blood Urea Nitrogen 47 mg/dL (9-16); Calcium 9.1 mg/dL (8.4-10.2); Carbon Dioxide 33 mmol/L (22-29); Chloride 106 mmol/L (96-108); Creatinine Clr Calc Pharmacy 40.5; Estimated Glomerular Filt Rate 33; Glucose Random 103 mg/dL (60-115); Magnesium 1.8 mg/dL (1.6-2.6); Potassium 4.6 mmol/L (3.3-5.1); Sodium 144 mmol/L (135-145)
[2021-01-14] MEDS: Lidocaine 4 % Patch ADH..PATCH 1 PATCH TRANSDERMA ×2 (09:03→10:24)
[2021-01-14] MEDS: Tacrolimus 1 MG CAPSULE 2 MG PO ×2 (09:05→21:08)
[2021-01-14] MEDS: Divalproex Sodium ER 500 MG TAB.ER.24H PO ×2 (09:05→21:06)
[2021-01-14] MEDS: Isosorbide Dinitrate 5 MG TABLET PO ×2 (09:05→21:06)
[2021-01-14] MEDS: Amiodarone HCL 200 MG TABLET 400 MG PO ×2 (09:07→21:07)
[2021-01-14] MEDS: Metoprolol Tartrate 50 MG TABLET PO (09:07)
[2021-01-14] MEDS: Rivaroxaban 15 MG TABLET PO (09:08)
[2021-01-14] MEDS: Omeprazole 20 MG CAPSULE.DR PO (09:08)
[2021-01-14] MEDS: Magnesium Oxide 400 MG TABLET PO ×2 (09:08→17:26)
[2021-01-14] MEDS: hydrALAZINE HCl 10 MG TABLET PO ×2 (09:08→21:07)
[2021-01-14] MEDS: predniSONE 10 MG TABLET PO (09:08)
[2021-01-14] MEDS: ARIPiprazole 30 MG TABLET PO (09:08)
--- NOTE | 2021-01-14 09:21 | MHC.SHP ---
Pre-Procedural Eval Section B Chief Complaint: SYNCOPE Allergies: Allergies Allergy/AdvReac Type Severity Reaction Status Date / Time diltiazem [From Cardizem] Allergy Unknown Dizziness Verified 01/07/21 10:19 indomethacin [Indocin] Allergy Unknown Unknown Verified 01/07/21 10:19 Plan I have reviewed the history and physical and performed a pertinent physical examination on my patient. No changes have occurred unless specified.
--- NOTE | 2021-01-14 09:57 | P.CONAN_ITS ---
HPI - Anesthesia Eval Consult details Narrative: 60 yo male patient here for cardioversion. Cancelled in past seco ndary to cocaine use [facility] Active Problems Active Problems: All Active Problems (Updated 01/13/21 @ 14:25 by ADONAY Arreguin) Status post cardiac catheterization (Acute) Knee pain, left (Acute) Renal failure, acute on chronic (Acute) Renal transplant disorder (Acute) Cardiomyopathy (Acute) Atrial fibrillation with rapid ventricular response (Acute) Acute systolic (congestive) heart failure (Acute) Abscess of axilla, left (Acute) ANA (acute kidney injury) (Acute) Renal transplant disorder (Acute) Acute on chronic systolic heart failure (Acute) Syncope (Acute) Renal failure, acute on chronic (Acute) Heart failure with reduced ejection fraction (Acute) PAF (paroxysmal atrial fibrillation) (Acute) Essential hypertension (Acute) Cellulitis of left lower extremity (Acute) Unilateral primary osteoarthritis, left knee (Acute) DVT (deep venous thrombosis) (Acute) Cellulitis of left foot (Acute) Renal transplant recipient (Acute) Tobacco abuse (Acute) Obesity (Acute) Polysubstance abuse (Acute) Bipolar disorder (Acute) Past Medical History Medical History Afib Asthma Atrial fibrillation Bipolar disorder Cellulitis of left foot Cellulitis of left lower extremity Cocaine use Congestive heart failure DVT (deep venous thrombosis) Essential hypertension Gout Heart failure with reduced ejection fraction Hip osteoarthritis History of seizures Obesity Pacemaker PAF (paroxysmal atrial fibrillation) Polysubstance abuse Renal transplant recipient Second degree heart block Subdural hematoma Thrombocytopenia Tobacco abuse Unilateral primary osteoarthritis, left knee Urinary bladder cancer Family History Family History Father Prostate cancer Mother No problems noted. Brother Cancer Family history of problems with anesthesia: No Surgical History Surgical History Abscess of arm, left H/O cardiac radiofrequency ablation History of cardiac catheterization History of removal of cyst History of removal of cyst Kidney replaced by transplant Kidney transplant recipient History of Problems with Anesthesia: No Social History Social History Household Members: None Housing: Other Housing Other:: Rehab facility Do you presently have visiting nurse or other home services: Yes Alcohol intake: never Smoking Status: Current every day smoker Tobacco Type: Cigarette Packs Per Day: 1 Cigarettes Per Day: 3 Smoked in Last 30 Days: Yes Patient Interested in Nicotine Replacement: Yes Patient Given Instructions on How to Stop Smoking: Yes Date Education Initiated: 01/13/21 Second Hand Smoke Exposure: No Use of substances other than those prescribed or required for medical reasons: Yes Substance Use Type: Crack/Cocaine Substance Use Type Other:: once a week Substance Use Frequency: Chronic Longstanding Last Used Substance: Weeks (ago) Currently Displaying Signs/Symptoms of Drug Intoxication Withdrawal: No Any prior treatment program specific to substance use: Yes Have you been hit, kicked, punched, or otherwise hurt by someone within the past year? If so, by whom?: No Do you feel safe in your current relationship?: No Current Relationship Are you DNR?: No Advance Directives: No Advance Directives Information Provided: No Advance Directives on File: No Advance Directives Date on File: 12/25/20 Do you have thoughts of harming others: None Do you have a plan to hurt others: No Plan Recently lost weight without trying: No Eating poorly because of decreased appetite: No Nutrition Risks: No Nutritional Risk Poor oral hygiene: No service: No Current occupational status: unemployed Meds Allergies Allergy/AdvReac Type Severity Reaction Status Date / Time diltiazem [From Cardizem] Allergy Unknown Dizziness Verified 01/07/21 10:19 indomethacin [Indocin] Allergy Unknown Unknown Verified 01/07/21 10:19 Active Medications: Current Medications Generic Name Dose Route Start Last Admin Trade Name Freq PRN Reason Stop Dose Admin Acetaminophen 650 mg 01/12/21 21:51 Acetaminophen 325 Mg Tablet PO Q6H PRN Pain, Mild (Pain Scale 1-3) Albuterol Sulfate 2 puff 01/12/21 21:51 Albuterol Sulfate 90 Mcg 8 Gm Inhaler INHALE Q6H PRN Respiratory Distress Amiodarone HCl 400 mg 01/13/21 10:00 01/14/21 09:07 Amiodarone Hcl 200 Mg Tablet PO 400 mg BID YOLANDA Administration Aripiprazole 30 mg 01/13/21 09:00 01/14/21 09:08 Aripiprazole 30 Mg Tablet PO 30 mg DAILY YOLANDA Administration Cyclobenzaprine HCl 10 mg 01/12/21 21:51 Cyclobenzaprine Hcl 10 Mg Tablet PO TID PRN muscle spasm Divalproex Sodium 500 mg 01/13/21 09:00 01/14/21 09:05 Divalproex Sodium Er 500 Mg Tab.Er.24h PO 500 mg DAILY YOLANDA Administration Divalproex Sodium 1,000 mg 01/12/21 21:51 01/13/21 20:49 Divalproex Sodium Er 500 Mg Tab.Er.24h PO 1,000 mg BEDTIME YOLANDA Administration Docusate Sodium 100 mg 01/12/21 21:51 Docusate Sodium 100 Mg Capsule PO DAILY PRN Constipation Furosemide 40 mg 01/15/21 09:00 Furosemide 40 Mg/4 Ml Vial IVPUSH DAILY YOLANDA Protocol Hydralazine HCl 10 mg 01/12/21 21:51 01/14/21 09:08 Hydralazine Hcl 10 Mg Tablet PO 10 mg BID YOLANDA Administration Protocol Isosorbide Dinitrate 5 mg 01/12/21 21:51 01/14/21 09:05 Isosorbide Dinitrate 5 Mg Tablet PO 5 mg BID YOLANDA Administration Protocol Lidocaine 1 patch 01/13/21 09:00 01/14/21 09:03 Lidocaine 4 % Patch Adh..Patch TRANSDERMA 1 patch DAILY YOLANDA Administration Magnesium Oxide 400 mg 01/13/21 08:30 01/14/21 09:08 Magnesium Oxide 400 Mg Tablet PO 400 mg BIDPC YOLANDA Administration Metoprolol Tartrate 50 mg 01/12/21 21:51 01/14/21 09:07 Metoprolol Tartrate 50 Mg Tablet PO 50 mg BID YOLANDA Administration Protocol Omeprazole 20 mg 01/13/21 09:00 01/14/21 09:08 Omeprazole 20 Mg Capsule.Dr PO 20 mg DAILY YOLANDA Administration Ondansetron HCl 4 mg 01/12/21 21:51 Ondansetron Hcl 4 Mg/2 Ml Vial IVPUSH Q8H PRN Nausea and Vomiting Pharmacy Consult 1 each 01/12/21 19:05 Consult Rx Perform Med Rec MISCELLANE ONCE PRN Consult order Prednisone 10 mg 01/13/21 09:00 01/14/21 09:08 Prednisone 10 Mg Tablet PO 10 mg DAILY YOLANDA Administration Rivaroxaban 15 mg 01/13/21 09:00 01/14/21 09:08 Rivaroxaban 15 Mg Tablet PO 15 mg DAILY YOLANDA Administration Sodium Chloride 3 ml 01/13/21 00:00 01/14/21 09:02 0.9 % Sodium Chloride Flush 3 Ml Syringe IVFLUSH 3 ml QSHIFT YOLANDA Administration Tacrolimus 2 mg 01/12/21 21:51 01/14/21 09:05 Tacrolimus 1 Mg Capsule PO 2 mg BID YOLANDA Administration Home Medications Medication Instructions Recorded Confirmed Last Taken Type aripiprazole 30 mg tablet 30 mg PO DAILY 08/13/20 01/12/21 12/24/20 History omeprazole 20 mg capsule,delayed 20 mg PO DAILY 08/13/20 01/12/21 12/24/20 History release tacrolimus 1 mg capsule, 2 mg PO BID 08/13/20 01/12/21 12/24/20 History immediate-release albuterol sulfate 90 mcg/actuation 2 puff INHALATION Q6H PRN 09/29/20 01/12/21 Unknown History aerosol inhaler Phospha 250 Neutral 1 tab PO DAILY 12/08/20 01/12/21 12/24/20 History divalproex [Depakote ER] 1,000 mg PO BEDTIME 12/08/20 01/12/21 12/24/20 History divalproex [Depakote ER] 500 mg PO DAILY 12/08/20 01/12/21 12/24/20 History prednisone 10 mg PO DAILY 01/12/21 01/12/21 Unknown History Exam Exam Date and Time: January 14, 2021 0957 Height,Weight and Vital Signs: Height 5 ft 9 in Weight 86 kg Last Vital Signs Temp 97.4 F 01/14/21 09:42 Pulse 72 01/14/21 09:42 Resp 18 01/14/21 09:42 BP 130/85 01/14/21 09:42 Pulse Ox 95 01/14/21 09:42 Pertinent Lab Results Pertinent Lab Results: Laboratory Tests 01/12/21 01/12/21 01/12/21 15:46 15:46 15:46 WBC 4.2 L RBC 3.68 L Hgb 10.8 L Hct 34.5 L MCV 93.8 MCH 29.3 MCHC 31.3 RDW 16.3 H Plt Count 66 L D MPV 11.5 Immature Gran % (Auto) 1.7 H Neut % (Auto) 75.6 H Lymph % (Auto) 17.5 L [place] % (Auto) 5.0 Eos % (Auto) 0.2 Baso % (Auto) 0.0 Lymph # (Auto) 0.7 L [place] # (Auto) 0.2 Eos # (Auto) 0.0 Baso # (Auto) 0.0 Abs Immat Gran (auto) 0.07 H Absolute Neuts (auto) 3.2 Absolute Nucleated RBC 0.000 Nucleated RBC % (auto) 0.0 PT 20.1 H INR 1.7 H APTT 38.9 H Sodium 142 Potassium 5.4 H D Chloride 109 H Carbon Dioxide 27 Anion Gap 11 L BUN 49 H Creatinine 2.16 H Estim Creat Clear Calc 38.7 Estimated GFR 31 POC Glucose Random Glucose 146 H D Calcium 8.9 Magnesium 1.5 L Total Bilirubin 0.4 Direct Bilirubin 0.2 AST 11 ALT 12 Alkaline Phosphatase 71 D Total Creatine Kinase 20 L Troponin I High Sens B-Natriuretic Peptide Total Protein 5.3 L Albumin 3.1 L Lipase 8 U Random Total Protein Urine Creatinine Urine Opiates Screen Ur Barbiturates Screen Ur Phencyclidine Scrn Ur Amphetamines Screen U Benzodiazepines Scrn Urine Cocaine Screen U Marijuana (THC) Screen Ethyl Alcohol COVID-19 (KARISSA) COVID-[employer] 01/12/21 01/12/21 01/12/21 15:46 15:46 15:46 WBC RBC Hgb Hct MCV MCH MCHC RDW Plt Count MPV Immature Gran % (Auto) Neut % (Auto) Lymph % (Auto) [place] % (Auto) Eos % (Auto) Baso % (Auto) Lymph # (Auto) [place] # (Auto) Eos # (Auto) Baso # (Auto) Abs Immat Gran (auto) Absolute Neuts (auto) Absolute Nucleated RBC Nucleated RBC % (auto) PT INR APTT Sodium Potassium Chloride Carbon Dioxide Anion Gap BUN Creatinine Estim Creat Clear Calc Estimated GFR POC Glucose Random Glucose Calcium Magnesium Total Bilirubin Direct Bilirubin AST ALT Alkaline Phosphatase Total Creatine Kinase Troponin I High Sens 32.5 B-Natriuretic Peptide Total Protein Albumin Lipase U Random Total Protein Urine Creatinine Urine Opiates Screen Ur Barbiturates Screen Ur Phencyclidine Scrn Ur Amphetamines Screen U Benzodiazepines Scrn Urine Cocaine Screen U Marijuana (THC) Screen Ethyl Alcohol < 10 COVID-19 (KARISSA) Negative COVID-19 [employer] [facility] See Note 01/12/21 01/12/21 01/12/21 15:46 17:56 19:10 WBC RBC Hgb Hct MCV MCH MCHC RDW Plt Count MPV Immature Gran % (Auto) Neut % (Auto) Lymph % (Auto) [place] % (Auto) Eos % (Auto) Baso % (Auto) Lymph # (Auto) [place] # (Auto) Eos # (Auto) Baso # (Auto) Abs Immat Gran (auto) Absolute Neuts (auto) Absolute Nucleated RBC Nucleated RBC % (auto) PT INR APTT Sodium Potassium Chloride Carbon Dioxide Anion Gap BUN Creatinine Estim Creat Clear Calc Estimated GFR POC Glucose 143 H Random Glucose Calcium Magnesium Total Bilirubin Direct Bilirubin AST ALT Alkaline Phosphatase Total Creatine Kinase Troponin I High Sens B-Natriuretic Peptide 1192 H Total Protein Albumin Lipase U Random Total Protein Urine Creatinine Urine Opiates Screen Not Detected Ur Barbiturates Screen Not Detected Ur Phencyclidine Scrn Not Detected Ur Amphetamines Screen Not Detected U Benzodiazepines Scrn Not Detected Urine Cocaine Screen Not Detected U Marijuana (THC) Screen Not Detected Ethyl Alcohol COVID-19 (KARISSA) COVID-19 [employer] [facility] [place] 01/12/21 01/13/21 01/13/21 19:39 05:36 05:36 WBC 4.5 L RBC 3.75 L Hgb 10.9 L Hct 35.0 L MCV 93.3 MCH 29.1 MCHC 31.1 RDW 16.5 H Plt Count 69 L MPV 11.8 Immature Gran % (Auto) 2.2 H Neut % (Auto) 59.1 Lymph % (Auto) 28.7 [place] % (Auto) 9.6 Eos % (Auto) 0.2 Baso % (Auto) 0.2 Lymph # (Auto) 1.3 [place] # (Auto) 0.4 Eos # (Auto) 0.0 Baso # (Auto) 0.0 Abs Immat Gran (auto) 0.10 H Absolute Neuts (auto) 2.7 Absolute Nucleated RBC 0.000 Nucleated RBC % (auto) 0.0 PT INR APTT Sodium 144 Potassium 4.5 Chloride 108 Carbon Dioxide 29 Anion Gap 12 BUN 47 H Creatinine 2.05 H Estim Creat Clear Calc 40.8 Estimated GFR 33 POC Glucose Random Glucose 150 H Calcium 8.8 Magnesium 1.5 L Total Bilirubin Direct Bilirubin AST ALT Alkaline Phosphatase Total Creatine Kinase Troponin I High Sens 30.2 B-Natriuretic Peptide Total Protein Albumin 3.0 L Lipase U Random Total Protein Urine Creatinine Urine Opiates Screen Ur Barbiturates Screen Ur Phencyclidine Scrn Ur Amphetamines Screen U Benzodiazepines Scrn Urine Cocaine Screen U Marijuana (THC) Screen Ethyl Alcohol COVID-19 (KARISSA) COVID-19 [employer] 01/13/21 01/13/21 01/13/21 10:27 17:14 17:14 WBC 5.7 RBC 3.77 L Hgb 10.9 L Hct 34.8 L MCV 92.3 MCH 28.9 MCHC 31.3 RDW 16.1 H Plt Count 72 L MPV 11.7 Immature Gran % (Auto) Neut % (Auto) Lymph % (Auto) [place] % (Auto) Eos % (Auto) Baso % (Auto) Lymph # (Auto) [place] # (Auto) Eos # (Auto) Baso # (Auto) Abs Immat Gran (auto) Absolute Neuts (auto) Absolute Nucleated RBC 0.000 Nucleated RBC % (auto) 0.0 PT INR APTT Sodium Potassium Chloride Carbon Dioxide Anion Gap BUN Creatinine Estim Creat Clear Calc Estimated GFR POC Glucose Random Glucose Calcium Magnesium Total Bilirubin Direct Bilirubin AST ALT Alkaline Phosphatase Total Creatine Kinase Troponin I High Sens B-Natriuretic Peptide Total Protein Albumin Lipase U Random Total Protein 28 H Urine Creatinine 44.02 Urine Opiates Screen Ur Barbiturates Screen Ur Phencyclidine Scrn Ur Amphetamines Screen U Benzodiazepines Scrn Urine Cocaine Screen U Marijuana (THC) Screen Ethyl Alcohol COVID-19 ([facility]ISSA) COVID-19 [employer] 01/14/21 01/14/21 06:33 06:33 WBC 5.8 RBC 3.92 L Hgb 11.6 L Hct 36.4 L MCV 92.9 MCH 29.6 MCHC 31.9 RDW 16.5 H Plt Count 84 L MPV 11.7 Immature Gran % (Auto) Neut % (Auto) Lymph % (Auto) [place] % (Auto) Eos % (Auto) Baso % (Auto) Lymph # (Auto) [place] # (Auto) Eos # (Auto) Baso # (Auto) Abs Immat Gran (auto) Absolute Neuts (auto) Absolute Nucleated RBC 0.000 Nucleated RBC % (auto) 0.0 PT INR APTT Sodium 144 Potassium 4.6 Chloride 106 Carbon Dioxide 33 H Anion Gap 10 L BUN 47 H Creatinine 2.05 H Estim Creat Clear Calc 40.5 Estimated GFR 33 POC Glucose Random Glucose 103 Calcium 9.1 Magnesium 1.8 Total Bilirubin Direct Bilirubin AST ALT Alkaline Phosphatase Total Creatine Kinase Troponin I High Sens B-Natriuretic Peptide Total Protein Albumin Lipase U Random Total Protein Urine Creatinine Urine Opiates Screen Ur Barbiturates Screen Ur Phencyclidine Scrn Ur Amphetamines Screen U Benzodiazepines Scrn Urine Cocaine Screen U Marijuana (THC) Screen Ethyl Alcohol COVID-19 ([facility]ISSA) COVID-19 Clin Com Airway Mallampati Class: III (Overbite) TM Dist: >3cm Neck ROM: Full Heart: Irregular Lungs: CTAB Assessment and Plan Assessment Anesthesia Assessment: Anesthesia Plan Discussed and Chart Reviewed Final Anesthetic Review ASA Class: IV Final Preanesthetic Review: No Changes in Pt Med Stat, Meds/Allgs Chart Reviewed, Consent Obtained/Reviewed and Anes Risks/Benef Reviewed Patient Risk: High Procedure Risk: Intermediate Anesthetic Plan Anesthetic Plan: GA Disposition: Standard PACU
[2021-01-14] MEDS: Lactated Ringers 1,000 ML 20 ML IVCONT (10:00)
--- NOTE | 2021-01-14 10:32 | P.PNCA_ITS ---
Subjective Subjective Date of Service: 01/14/21 Interval history: He states that he feels okay. No specific complaints. Review of Systems Review of Systems Yes all other systems are reviewed and are negative Cardiovascular: Reports as per HPI, Reports no additional cardiovascular complaints, Denies acrocyanosis, Denies cool extremities, Denies painful fing ertips, Denies chest pain, Denies chest pain at rest, Denies diaphoresis, Denies syncope, Denies irregular heart rhythm, Denies claudication, Reports leg edema, Denies lightheadedness, Denies palpitations and Reports dyspnea Respiratory: Reports dyspnea Denies syncope Endocrine: Denies palpitations Physical Exam Vital Signs: Last Vital Signs Temp 97.4 F 01/14/21 09:42 Pulse 72 01/14/21 09:42 Resp 18 01/14/21 09:42 BP 130/85 01/14/21 09:42 Pulse Ox 95 01/14/21 09:42 Body Mass Index 28.0 Const General: cooperative, comfortable and no acute distress Orientation/consciousness: patient oriented x3 HENGA Other: Unremarkable Neck Neck: Yes normal visual inspection Chest Chest palpation & inspection: normal inspection of the chest Resp Auscultation: clear to auscultation bilaterally, no crackles and no wheezes Cardio Jugular venous distension: no JVD Palpation: normal PMI Heart sounds: S1 normal heart sound present, S2 normal heart sound present, no gallops, no murmurs and no rubs GI Palpation (GI): Soft to palpation Back/Spine/Pelvis Other: unremarkable Skin General skin exam: no rashes or lesions noted Neuro General: patient oriented x3 Extrem General: Yes edema (1+) Psych Mental Status: mental status grossly normal Results Labs and Meds Result diagrams: 01/14/21 06:33 01/14/21 06:33 Lab results: Laboratory Results - last 24 hr 01/13/21 01/13/21 01/13/21 05:36 10:27 17:14 WBC 5.7 RBC 3.77 L Hgb 10.9 L Hct 34.8 L MCV 92.3 MCH 28.9 MCHC 31.3 RDW 16.1 H Plt Count 72 L MPV 11.7 Absolute Nucleated RBC 0.000 Nucleated RBC % (auto) 0.0 Sodium Potassium Chloride Carbon Dioxide Anion Gap BUN Creatinine Estim Creat Clear Calc Estimated GFR Random Glucose Calcium Magnesium Albumin 3.0 L U Random Total Protein Urine Creatinine 44.02 01/13/21 01/14/21 01/14/21 17:14 06:33 06:33 WBC 5.8 RBC 3.92 L Hgb 11.6 L Hct 36.4 L MCV 92.9 MCH 29.6 MCHC 31.9 RDW 16.5 H Plt Count 84 L MPV 11.7 Absolute Nucleated RBC 0.000 Nucleated RBC % (auto) 0.0 Sodium 144 Potassium 4.6 Chloride 106 Carbon Dioxide 33 H Anion Gap 10 L BUN 47 H Creatinine 2.05 H Estim Creat Clear Calc 40.5 Estimated GFR 33 Random Glucose 103 Calcium 9.1 Magnesium 1.8 Albumin U Random Total Protein 28 H Urine Creatinine Progress Note: A&P Assessment and plan (1) Atrial fibrillation with rapid ventricular response: Status: Acute (2) Acute systolic (congestive) heart failure: Status: Acute (3) Essential hypertension: Status: Acute (4) Renal transplant recipient: Status: Acute (5) Bipolar disorder: Status: Acute Assessment and Plan: In the most recent echocardiogram, LVEF was 15-20%. Possibly tachycardia mediated cardiomyopathy. In the past, cardiac catheterization had shown no significant disease. Cocaine may also play a role in his cardiomyopathy but in this admission, cocaine is negative. Cardioversion was attempted today but he did not convert in spite of 2 attempts. May continue amiodarone that was just s tarted. Continue beta-blockers but change to sustained release preparation. Continue anticoagulation. Potentially re-attempt in a few weeks time once Amiodarone loading has been completed. Fall Risk Details Current Medications: Current Medications Generic Name Dose Route Start Last Admin Trade Name Erikq PRN Reason Stop Dose Admin Acetaminophen 650 mg 01/12/21 21:51 Acetaminophen 325 Mg Tablet PO Q6H PRN Pain, Mild (Pain Scale 1-3) Albuterol Sulfate 2 puff 01/12/21 21:51 Albuterol Sulfate 90 Mcg 8 Gm Inhaler INHALE Q6H PRN Respiratory Distress Amiodarone HCl 400 mg 01/13/21 10:00 01/14/21 09:07 Amiodarone Hcl 200 Mg Tablet PO 400 mg BID YOLANDA Administration Aripiprazole 30 mg 01/13/21 09:00 01/14/21 09:08 Aripiprazole 30 Mg Tablet PO 30 mg DAILY YOLANDA Administration Cyclobenzaprine HCl 10 mg 01/12/21 21:51 Cyclobenzaprine Hcl 10 Mg Tablet PO TID PRN muscle spasm Divalproex Sodium 500 mg 01/13/21 09:00 01/14/21 09:05 Divalproex Sodium Er 500 Mg Tab.Er.24h PO 500 mg DAILY YOLANDA Administration Divalproex Sodium 1,000 mg 01/12/21 21:51 01/13/21 20:49 Divalproex Sodium Er 500 Mg Tab.Er.24h PO 1,000 mg BEDTIME YOLANDA Administration Docusate Sodium 100 mg 01/12/21 21:51 Docusate Sodium 100 Mg Capsule PO DAILY PRN Constipation Furosemide 40 mg 01/15/21 09:00 Furosemide 40 Mg/4 Ml Vial IVPUSH DAILY YOLANDA Protocol Hydralazine HCl 10 mg 01/12/21 21:51 01/14/21 09:08 Hydralazine Hcl 10 Mg Tablet PO 10 mg BID YOLANDA Administration Protocol Lactated Ringer's 1,000 mls @ 20 mls/hr 01/14/21 10:15 01/14/21 10:00 Lr IVCONT 20 mls/hr .Q24H YOLANDA Administration Isosorbide Dinitrate 5 mg 01/12/21 21:51 01/14/21 09:05 Isosorbide Dinitrate 5 Mg Tablet PO 5 mg BID YOLANDA Administration Protocol Lidocaine 1 patch 01/13/21 09:00 01/14/21 10:24 Lidocaine 4 % Patch Adh..Patch TRANSDERMA 1 patch DAILY YOLANDA Administration Magnesium Oxide 400 mg 01/13/21 08:30 01/14/21 09:08 Magnesium Oxide 400 Mg Tablet PO 400 mg BIDPC YOLANDA Administration Metoprolol Succinate 50 mg 01/14/21 21:00 Metoprolol Succinate Er 50 Mg Tab.Er.24h PO BID YOLANDA Protocol Omeprazole 20 mg 01/13/21 09:00 01/14/21 09:08 Omeprazole 20 Mg Capsule.Dr PO 20 mg DAILY YOLANDA Administration Ondansetron HCl 4 mg 01/12/21 21:51 Ondansetron Hcl 4 Mg/2 Ml Vial IVPUSH Q8H PRN Nausea and Vomiting Ondansetron HCl 4 mg 01/14/21 10:11 Ondansetron Hcl 4 Mg/2 Ml Vial IVPUSH ONCE PRN Nausea and Vomiting Pharmacy Consult 1 each 01/12/21 19:05 Consult Rx Perform Med Rec MISCELLANE ONCE PRN Consult order Prednisone 10 mg 01/13/21 09:00 01/14/21 09:08 Prednisone 10 Mg Tablet PO 10 mg DAILY YOLANDA Administration Rivaroxaban 15 mg 01/13/21 09:00 01/14/21 09:08 Rivaroxaban 15 Mg Tablet PO 15 mg DAILY YOLANDA Administration Sodium Chloride 3 ml 01/13/21 00:00 01/14/21 09:02 0.9 % Sodium Chloride Flush 3 Ml Syringe IVFLUSH 3 ml QSHIFT YOLANDA Administration Tacrolimus 2 mg 01/12/21 21:51 01/14/21 09:05 Tacrolimus 1 Mg Capsule PO 2 mg BID YOLANDA Administration Time Spent With Patient Time: Total time spent is greater than 50% in coordination of care (as documented) at patient's floor/unit and/or counseling patient: Time with patient: less than 15 minutes
--- NOTE | 2021-01-14 10:35 | HO.CARDIVERS ---
Cardioversion Procedure Note Cardioversion Date of Procedure: 01/14/2021 Ordering Provider: Dr. Pope Performing Provider: Dr. Pope Indication for Procedure: Atrial fibrillation and cardiomyopathy, recurrent admissions for congestive heart failure Pre-Op Diagnosis: Atrial fibrillation Post-Op Diagnosis: Atrial fibrillation Performed with Transesophageal Echo: No History: As above. Consent: Informed consent obtained. Procedure: After informed consent was obtained, patient was taken to the PACU. The patient was then positioned appropriately. The cardioversion pads were placed in anteroposterior position. Once under anesthesia, 120 joules of synchronized shock was administered. The rhythm converted from atrial fibrillation to sinus rhythm, for a brief period, but went back into atrial fibrillation. Then we re-attempted with 150 joules but again the conversion lasted for a brief period. After 2 attempts, we did not proceed any further.. Patient remained in atrial fibrillation after the end of procedure. Complications: None Impression: Unsuccessful cardioversion. Recommendations: Continue amiodarone. Possibly re-attempt in a few weeks time once loaded.
--- NOTE | 2021-01-14 11:59 | PC.NURSE ---
1145 REPORT TO PETE LUCERO ON IMC BEFORE TX TO C
--- NOTE | 2021-01-14 13:51 | P.PNIM_ITS ---
Subjective Subjective Date of Service: 01/14/21 Interval History: seen and examined no complaints this am Review of Systems Review of Systems: Yes all other systems are reviewed and are negative Constitutional Constitutional: Denies chills and Denies fever(s) Cardiovascular Cardiovascular: Denies chest pain Respiratory Respiratory: Denies cough Gastrointestinal Gastrointestinal: Denies abdominal pain Physical Exam Vital Signs: Vital Signs: Last Vital Signs Temp 97.5 F 01/14/21 12:00 Pulse 74 01/14/21 12:00 Resp 17 01/14/21 12:00 BP 148/88 H 01/14/21 12:00 Pulse Ox 98 01/14/21 12:00 Body Mass Index 28.0 Const: General: comfortable, no acute distress, alert and awake Nutritional Appearance: well nourished Orientation/consciousness: patient oriented x3 HENMT: Head: Yes normocephalic and Yes atraumatic Eyes: Sclerae: sclerae normal Chest: Chest palpation & inspection: normal inspection of the chest Resp: Effort & Inspection: normal respiratory effort and no respiratory distress Cardio: Rate: regular rate Rhythm: abnormal rhythm (irregular) GI: Palpation (GI): Soft to palpation and nontender Neuro: General: patient oriented x3 Cranial nerves: Yes CN's II-XII intact bilaterally and Yes Bilaterally intact EOM present Extrem: Other: 3+ edema b/l Objective Data Current Medications Generic Name Dose Route Start Last Admin Trade Name Freq PRN Reason Stop Dose Admin Acetaminophen 650 mg 01/12/21 21:51 Acetaminophen 325 Mg Tablet PO Q6H PRN Pain, Mild (Pain Scale 1-3) Albuterol Sulfate 2 puff 01/12/21 21:51 Albuterol Sulfate 90 Mcg 8 Gm Inhaler INHALE Q6H PRN Respiratory Distress Amiodarone HCl 400 mg 01/13/21 10:00 01/14/21 09:07 Amiodarone Hcl 200 Mg Tablet PO 400 mg BID YOLANDA Administration Aripiprazole 30 mg 01/13/21 09:00 01/14/21 09:08 Aripiprazole 30 Mg Tablet PO 30 mg DAILY YOLANDA Administration Cyclobenzaprine HCl 10 mg 01/12/21 21:51 Cyclobenzaprine Hcl 10 Mg Tablet PO TID PRN muscle spasm Divalproex Sodium 500 mg 01/13/21 09:00 01/14/21 09:05 Divalproex Sodium Er 500 Mg Tab.Er.24h PO 500 mg DAILY YOLANDA Administration Divalproex Sodium 1,000 mg 01/12/21 21:51 01/13/21 20:49 Divalproex Sodium Er 500 Mg Tab.Er.24h PO 1,000 mg BEDTIME YOLANDA Administration Docusate Sodium 100 mg 01/12/21 21:51 Docusate Sodium 100 Mg Capsule PO DAILY PRN Constipation Furosemide 40 mg 01/15/21 09:00 Furosemide 40 Mg/4 Ml Vial IVPUSH DAILY YOLANDA Protocol Hydralazine HCl 10 mg 01/12/21 21:51 01/14/21 09:08 Hydralazine Hcl 10 Mg Tablet PO 10 mg BID YOLANDA Administration Protocol Isosorbide Dinitrate 5 mg 01/12/21 21:51 01/14/21 09:05 Isosorbide Dinitrate 5 Mg Tablet PO 5 mg BID YOLANDA Administration Protocol Lidocaine 1 patch 01/13/21 09:00 01/14/21 10:24 Lidocaine 4 % Patch Adh..Patch TRANSDERMA 1 patch DAILY YOLANDA Administration Magnesium Oxide 400 mg 01/13/21 08:30 01/14/21 09:08 Magnesium Oxide 400 Mg Tablet PO 400 mg BIDPC YOLANDA Administration Metoprolol Succinate 50 mg 01/14/21 21:00 Metoprolol Succinate Er 50 Mg Tab.Er.24h PO BID YOLANDA Protocol Omeprazole 20 mg 01/13/21 09:00 01/14/21 09:08 Omeprazole 20 Mg Capsule.Dr PO 20 mg DAILY YOLANDA Administration Ondansetron HCl 4 mg 01/12/21 21:51 Ondansetron Hcl 4 Mg/2 Ml Vial IVPUSH Q8H PRN Nausea and Vomiting Ondansetron HCl 4 mg 01/14/21 10:11 Ondansetron Hcl 4 Mg/2 Ml Vial IVPUSH ONCE PRN Nausea and Vomiting Pharmacy Consult 1 each 01/12/21 19:05 Consult Rx Perform Med Rec MISCELLANE ONCE PRN Consult order Prednisone 10 mg 01/13/21 09:00 01/14/21 09:08 Prednisone 10 Mg Tablet PO 10 mg DAILY YOLANDA Administration Rivaroxaban 15 mg 01/13/21 09:00 01/14/21 09:08 Rivaroxaban 15 Mg Tablet PO 15 mg DAILY YOLANDA Administration Sodium Chloride 3 ml 01/13/21 00:00 01/14/21 09:02 0.9 % Sodium Chloride Flush 3 Ml Syringe IVFLUSH 3 ml QSHIFT YOLANDA Administration Tacrolimus 2 mg 01/12/21 21:51 01/14/21 09:05 Tacrolimus 1 Mg Capsule PO 2 mg BID YOLANDA Administration Labs CBC & Chem 7: 01/14/21 06:33 01/14/21 06:33 Assessment and Plan (1) Renal failure, acute on chronic: Status: Acute (2) Renal transplant disorder: Status: Acute (3) Acute systolic (congestive) heart failure: Status: Acute (4) PAF (paroxysmal atrial fibrillation): Status: Acute Assessment and Plan: This is a 60-year-old male with past medical history of AFib, bipolar disorder, cocaine abuse, CHF, DVT, HTN, gout, kidney transplant, second-degree heart block status post pacemaker, subdural hematoma, thrombocytopenia, who presents to the hospital with complaints of syncopal episode while in a meeting found to have ANA, CHF. syncope ? r/t to arrhythmia. patient had episode of AFib with aberrancy in the ED troponin flat x 2 attempted cardioversion this am, unsuccessful - cardiology following - tele monitoring ANA on CKD h/o renal transplant - creatinine stable at 2.05 - seen by nephrology - tacrolimas level pending, will need close monitoring since starting on amio dorone - follow BMP closely acute on chronic HFrEF ECHO from 11/29 shows EF of 15-20% with severe global hypokinesis. Improving - change to PO lasix starting in AM - low-sodium diet, strict I&O, daily weight - cardiology following AFib - CV unsuccessful - metoprolol changed to sustained release - continue rivaroxaban - continue amiodorone - cardiology following Thrombocytopenia chronic, but below baseline. stable today ? r/t depakote -follow CBC history of kidney transplant - continue tacrolimus,prednisone - nephrology following hypomagnesemia - replaced - continue his home magnesium supplement - follow magnesium level HTN BP somewhat elevated. Will follow, may need med adjustment - continue metoprolol, hydralazine as well as Imdur bipolar disorder - continue Depakote, abilify DVT prophylaxis: Rivaroxaban
--- NOTE | 2021-01-14 16:03 | P.PNNP_ITS ---
Subjective Subjective Date of Service: 01/14/21 Interval history: Seen and examined. Events noted. Physical Exam Vital Signs: Vital Signs: Last Vital Signs Temp 97.5 F 01/14/21 12:00 Pulse 74 01/14/21 12:00 Resp 17 01/14/21 12:00 BP 148/88 H 01/14/21 12:00 Pulse Ox 98 01/14/21 12:00 Body Mass Index 28.0 Const: General: cooperative, comfortable, no acute distress, alert and awake Nutritional Appearance: well nourished Orientation/consciousness: patient oriented x3 HENMT: Other: Unremarkable Head: Yes normocephalic and Yes atraumatic Eyes: General: appearance normal, both eyes and all related structures Sclerae: sclerae normal Neck: Neck: Yes normal visual inspection Chest: Chest palpation & inspection: normal inspection of the chest Resp: Effort & Inspection: normal respiratory effort and no respiratory distress Auscultation: clear to auscultation bilaterally, no crackles and no wheezes Cardio: Jugular venous distension: no JVD Palpation: normal PMI Rate: regular rate Rhythm: regular rhythm and abnormal rhythm (irregular) Heart sounds: S1 normal heart sound present, S2 normal heart sound present, no gallops, no murmurs and no rubs GI: Palpation (GI): Soft to palpation and nontender Auscultation: normal bowel sounds Back/Spine/Pelvis: Other: unremarkable Skin: General skin exam: no rashes or lesions noted Neuro: General: patient oriented x3 Cranial nerves: Yes CN's II-XII intact bilaterally and Yes Bilaterally intact EOM present Cognition (Neuro): normal cognition Extrem: Other: 3+ edema b/l General: Yes normal to inspection and Yes edema (1+) Psych: Mental Status: mental status grossly normal Objective Data Labs CBC & Chem 7: 01/14/21 06:33 01/14/21 06:33 Labs: Laboratory Results - last 24 hr 01/13/21 01/13/21 01/13/21 05:36 17:14 17:14 WBC RBC Hgb Hct MCV MCH MCHC RDW Plt Count MPV Absolute Nucleated RBC Nucleated RBC % (auto) Sodium Potassium Chloride Carbon Dioxide Anion Gap BUN Creatinine Estim Creat Clear Calc Estimated GFR Random Glucose Calcium Magnesium Albumin 3.0 L U Random Total Protein 28 H Urine Creatinine 44.02 01/14/21 01/14/21 06:33 06:33 WBC 5.8 RBC 3.92 L Hgb 11.6 L Hct 36.4 L MCV 92.9 MCH 29.6 MCHC 31.9 RDW 16.5 H Plt Count 84 L MPV 11.7 Absolute Nucleated RBC 0.000 Nucleated RBC % (auto) 0.0 Sodium 144 Potassium 4.6 Chloride 106 Carbon Dioxide 33 H Anion Gap 10 L BUN 47 H Creatinine 2.05 H Estim Creat Clear Calc 40.5 Estimated GFR 33 Random Glucose 103 Calcium 9.1 Magnesium 1.8 Albumin U Random Total Protein Urine Creatinine Assessment & Plan Assessment and plan (1) Pacemaker: Problem details: (10/2019 - due to mobitz2 heart block) Status: Inactive Assessment and Plan: 1. Syncope Event: w/u in progress; per card the plan is to astart amiodarone and proceed with CVersion 2. ANA but really he has CKD with SCr has ranged typically in 1.5-2.0 range and he has signif Uprot in past; ques of prog CKD chronic rejection, [facility] assoc or transplant Glomopathy 3. Edema: improved with lasixl but still signif edema; Nephrotic Syndrome r/o so loks like its d/t his CM and low EF state 4. DM 5. Pafibb 6. H/O cocaine use REC: cont current meds; check tacro level; avoid Ntoxins; cont diuretics; will look to starting REBEKAH or ARB at some point; ques candidate for [facility] given his med noncomplinace and falling epsidoes will follow wit team Time Spent With Patient Time: Total time spent is greater than 50% in coordination of care (as docum ented) at patient's floor/unit and/or counseling patient:
[2021-01-14] MEDS: Metoprolol Succinate ER 50 MG TAB.ER.24H PO (21:07)
[2021-01-14] MEDS: Divalproex Sodium ER 500 MG TAB.ER.24H 1000 MG PO (21:11)
[2021-01-15] VITALS (7 sets, daily range): BP systolic 117–167; BP diastolic 56–101; PULSE 67–84; RESP 16–22; TEMP 36.6–36.8; O2SAT 95–96; BMI 27.8
[2021-01-15 04:12] LABS: Tacrolimus Prograf 12.7 mcg/L
--- NOTE | 2021-01-15 08:06 | HO.POSTANES ---
Post Anesthesia Evaluation Post Anesthesia Evaluation Vital Signs: Vital Signs Temp Pulse Resp BP Pulse Ox 01/15/21 04:00 98.3 F 84 16 161/63 H 95 01/15/21 00:00 97.8 F 83 16 117/56 L 95 01/14/21 21:07 79 120/75 01/14/21 21:06 79 120/75 Anesthesia: Monitored Mental Status: Awake Pain Control: Satisfactory Nausea/Vomiting: None Hydration: Adequate Anesthesia-Related Issues: No Anes. Related Issues
[2021-01-15] MEDS: 0.9 % Sodium Chloride Flush 3 ML SYRINGE IVFLUSH (08:29)
[2021-01-15] MEDS: Magnesium Oxide 400 MG TABLET PO (08:29)
[2021-01-15] MEDS: Omeprazole 20 MG CAPSULE.DR PO (08:29)
[2021-01-15] MEDS: Rivaroxaban 15 MG TABLET PO (08:29)
[2021-01-15] MEDS: Lidocaine 4 % Patch ADH..PATCH 1 PATCH TRANSDERMA (08:29)
[2021-01-15] MEDS: Tacrolimus 1 MG CAPSULE 2 MG PO (08:29)
[2021-01-15] MEDS: predniSONE 10 MG TABLET PO (08:29)
[2021-01-15] MEDS: ARIPiprazole 30 MG TABLET PO (08:31)
[2021-01-15] MEDS: Isosorbide Dinitrate 5 MG TABLET PO (08:33)
[2021-01-15] MEDS: hydrALAZINE HCl 10 MG TABLET PO (08:33)
[2021-01-15] MEDS: Amiodarone HCL 200 MG TABLET 400 MG PO (08:33)
[2021-01-15] MEDS: Metoprolol Succinate ER 50 MG TAB.ER.24H PO (08:39)
[2021-01-15] MEDS: Divalproex Sodium ER 500 MG TAB.ER.24H PO (08:41)
[2021-01-15 09:15] LABS: Anion Gap 12 (12-20); Blood Urea Nitrogen 54 mg/dL (9-16); Calcium 9.3 mg/dL (8.4-10.2); Carbon Dioxide 29 mmol/L (22-29); Chloride 106 mmol/L (96-108); Estimated Glomerular Filt Rate 29; Glucose Random 93 mg/dL (60-115); Potassium 4.9 mmol/L (3.3-5.1); Sodium 142 mmol/L (135-145)
--- NOTE | 2021-01-15 11:15 | PM.DS ---
DS: Providers Provider Date of Service: 01/15/21 Date of admission: 01/12/21 21:04 Primary care physician: Vicenta Sumner MD Consults: 01/12/21 21:51 Consult to Cardiology Routine Consulting Provider: Dharmesh Pope Reason for consultation: chf, a fib Has provider been notified: Yes 01/13/21 10:02 Consult to Nephrology Routine Consulting Provider: Cornell Holly Reason for consultation: renal transplant Has provider been notified: No DS: Diagnosis Discharge Diagnosis (1) Acute systolic (congestive) heart failure: Status: Acute (2) Renal failure, acute on chronic: Status: Acute (3) PAF (paroxysmal atrial fibrillation): Status: Acute (4) Syncope: Status: Acute DS: Medications Discharge Medications Home Medications: Home Medications Medication Instructions Recorded Confirmed aripiprazole 30 mg tablet 30 mg PO DAILY 08/13/20 01/12/21 omeprazole 20 mg capsule,delayed 20 mg PO DAILY 08/13/20 01/12/21 release tacrolimus 1 mg capsule, 2 mg PO BID 08/13/20 01/12/21 immediate-release Phospha 250 Neutral 1 tab PO DAILY 12/08/20 01/12/21 divalproex [Depakote ER] 1,000 mg PO BEDTIME 12/08/20 01/12/21 divalproex [Depakote ER] 500 mg PO DAILY 12/08/20 01/12/21 prednisone 10 mg PO DAILY 01/12/21 01/12/21 Previous Rx's Medication Instructions Recorded magnesium oxide 400 mg PO BIDPC #60 tab 12/17/20 cyclobenzaprine 10 mg PO TID PRN #10 tab 12/30/20 lidocaine [Lidoderm] 1 patch TOPICAL DAILY #15 ea 12/30/20 diltiazem HCl 120 mg 120 mg PO DAILY #90 tab 01/01/21 tablet,extended release 24 hr furosemide 40 mg tablet 40 mg PO BID@0900,1800 #180 tab 01/01/21 hydralazine 10 mg tablet 10 mg PO BID #180 tab 01/01/21 isosorbide dinitrate 5 mg tablet 5 mg PO BID #180 tab 01/01/21 metoprolol tartrate 50 mg tablet 50 mg PO BID #180 tab 01/01/21 rivaroxaban 15 mg tablet 15 mg PO DAILY #90 tab 01/01/21 albuterol sulfate 90 mcg/actuation 2 puff INHALATION Q6H PRN #8.5 g 01/14/21 aerosol inhaler DS: Summary Hospital Course Hospital Course: This is a 60-year-old male with past medical history of AFib, bipolar disorder, cocaine abuse, CHF, DVT, HTN, gout, kidney transplant, second-degree heart block status post pacemaker, subdural hematoma, thrombocytopenia, who presents to the hospital with complaints of syncopal episode while in a meeting found to have ANA, CHF. Syncope was thought to be secondary to arrhythmia. Patient had episode of AFib with aberrancy in the ED. Troponin was flat x2. He was seen by Cardiology and started on amiodarone. He underwent cardioversion on 01/14 which was unsuccessful. His metoprolol was changed to sustained release. He had no further episode of syncope. He should follow with Cardiology as outpatient for repeat cardioversion. ANA on CKD. h/o renal transplant therefore Nephrology was consulted. Creatinine stayed in range of baseline, has trended up slightly to 2.3. Tacrolimus level was hecked and within normal limits. Tacrolimus level will need close monitoring since starting on amiodorone. BMP should be checked in one week and he should follow up with Dr. Holly in 2 weeks. acute on chronic HFrEF. ECHO from 11/29 shows EF of 15-20% with severe global hypokinesis. h/o cocaine use although negative on this admission. He was treated with IV Lasix with improvement of lower extremity edema. He will be discharged home on home dose of Lasix. He should have BMP checked in 1 week. AFib. CV unsuccessful. metoprolol changed to sustained release. Cardizem was discontinued. Patient was started on amiodarone. Should continue anticoagulation with Xarelto although should be monitored closely given chronic thrombocytopenia. Call to schedule follow up with Cardiology. Thrombocytopenia. Thrombocytopenia is chronic however platelets were slightly below baseline. His platelets remain stable, there was no evidence of active bleeding. Time Spent with Patient Time attestation: Total time spent providing and/or coordinating discharge services: Discharge coordination time: Greater than 30 minutes Physical Exam Vital Signs: Vital Signs: Last Vital Signs Temp 98.2 F 01/15/21 08:00 Pulse 67 01/15/21 08:39 Resp 22 H 01/15/21 08:00 BP 167/101 H 01/15/21 08:39 Pulse Ox 96 01/15/21 10:11 Body Mass Index 27.8 Const: General: comfortable, no acute distress, alert and awake Nutritional Appearance: well nourished Orientation/consciousness: patient oriented x3 HENMT: Head: Yes normocephalic and Yes atraumatic Eyes: Sclerae: sclerae normal Chest: Chest palpation & inspection: normal inspection of the chest Resp: Effort & Inspection: normal respiratory effort and no respiratory distress Cardio: Rate: regular rate Rhythm: abnormal rhythm (irregular) GI: Palpation (GI): Soft to palpation and nontender Neuro: General: patient oriented x3 Cranial nerves: Yes CN's II-XII intact bilaterally and Yes Bilaterally intact EOM present Extrem: Other: 1+ edema DS: Data Data Completed and Pending Completed studies during hospitalization [Text1]: Procedures Drainage of Left Upper Arm Skin, External Approach (12/25/20) Labs on day of discharge: Laboratory Results - last 24 hr 01/14/21 01/15/21 06:33 07:58 Sodium 142 Potassium 4.9 Chloride 106 Carbon Dioxide 29 Anion Gap 12 BUN 54 H Creatinine 2.30 H Estim Creat Clear Calc 36.0 Estimated GFR 29 Random Glucose 93 Calcium 9.3 Tacrolimus 12.7 Discharge Plan Discharge Patient Disposition: Home, Self-Care Discharge Diagnosis: Syncope ANA on CKD Acute on Chronic HFrEF Atrial Fibrillation Thrombocytopenia Referrals: Vicenta Sumner MD [Primary Care Provider] - 1 Week Cornell Holly MD [Physician] - 2 Weeks Discharge Medications: New amiodarone 200 mg tablet See Rx Instructions .ROUTE .COMPLEX Qty: 90 RF: 0 metoprolol succinate [Toprol XL] 50 mg tablet extended release 24 hr 50 mg PO BID 30 Days Qty: 60 RF: 0 Continued furosemide 40 mg tablet 40 mg PO BID@0900,1800 Qty: 180 RF: 2 hydralazine 10 mg tablet 10 mg PO BID Qty: 180 RF: 2 isosorbide dinitrate 5 mg tablet 5 mg PO BID Qty: 180 RF: 2 Xarelto 15 mg tablet 15 mg PO DAILY Qty: 90 RF: 2 albuterol sulfate 90 mcg/actuation HFA aerosol inhaler 2 puff inhalation Q6H PRN (Reason: Respiratory Distress) Qty: 8.5 RF: 0 divalproex [Depakote ER] 500 mg Tablet Extended Release 24 Hr 500 mg PO DAILY RF: 0 divalproex [Depakote ER] 500 mg Tablet Extended Release 24 Hr 1,000 mg PO BEDTIME RF: 0 Phospha 250 Neutral 250 mg Tablet 1 tab PO DAILY RF: 0 magnesium oxide 400 mg (241.3 mg magnesium) Tablet 400 mg PO BIDPC Qty: 60 RF: 0 cyclobenzaprine 10 mg tablet 10 mg PO TID PRN (Reason: muscle spasm) Qty: 10 RF: 0 lidocaine [Lidoderm] 5 % adhesive patch,medicated 1 patch topical DAILY Qty: 15 RF: 0 prednisone 10 mg tablet 10 mg PO DAILY RF: 0 omeprazole 20 mg capsule,delayed release(DR/EC) 20 mg PO DAILY RF: 0 aripiprazole [Abilify] 30 mg tablet 30 mg PO DAILY RF: 0 tacrolimus [Prograf] 1 mg capsule 2 mg PO BID RF: 0 Discontinued Cardizem LA 120 mg tablet extended release 24 hr 120 mg PO DAILY Qty: 90 RF: 2 metoprolol tartrate 50 mg tablet 50 mg PO BID Qty: 180 RF: 2 Activity on Discharge: As tolerated Stand Alone Forms: Patient Portal Discharge page Other Ambulatory Orders: Basic Metabolic Panel (Routine) Timeframe: 1 Week Facility: [facility] - Location: Laboratory Ordered By: Valeri Alvarado Care Plan Goals: See Below Health Concerns: Syncope Chronic kindey disease atrial fibrillation CHF Plan of Treatment: You have been started on Amiodorone please take as prescribed. Your tacrolimus level should be monitored. please have labs rechecked in [address] Holly to schedule follow-up appointment Call PCP to control her follow-up appointment Call to schedule follow up with cardiology Assessment: see discharge summary
--- NOTE | 2021-01-15 11:38 | MHC.CM.PN ---
Patient has been medically cleared for dc to home, no services. CM met with Patient who indicated that he will call to his [facility]program for a return ride there. Patient is aware of and in agreement with the dc plan.
--- NOTE | 2021-01-15 12:18 | PM.PNCARD ---
Subjective Subjective Date of Service: 01/15/21 Interval history: He states that he feels okay. No specific cardiac complaints at this time. Review of Systems Review of Systems Yes all other systems are reviewed and are negative Cardiovascular: Reports as per HPI, Reports no additional cardiovascular complaints, Denies acrocyanosis, Denies cool extremities, Denies painful fingertips, Denies chest pain, Denies chest pain at rest, Denies diaphoresis, Denies syncope, Denies irregular heart rhythm, Denies claudication, Reports leg edema, Denies lightheadedness, Denies palpitations and Reports dyspnea Respiratory: Reports dyspnea Denies syncope Endocrine: Denies palpitations Physical Exam Vital Signs: Last Vital Signs Temp 98.1 F 01/15/21 11:57 Pulse 81 01/15/21 11:57 Resp 20 01/15/21 11:57 BP 151/98 H 01/15/21 11:57 Pulse Ox 95 01/15/21 11:57 Body Mass Index 27.8 Const General: cooperative, comfortable and no acute distress Orientation/consciousness: patient oriented x3 HENOK Other: Unremarkable Neck Neck: Yes normal visual inspection Chest Chest palpation & inspection: normal inspection of the chest Resp Auscultation: clear to auscultation bilaterally, no crackles and no wheezes Cardio Jugular venous distension: no JVD Palpation: normal PMI Heart sounds: S1 normal heart sound present, S2 normal heart sound present, no gallops, no murmurs and no rubs GI Palpation (GI): Soft to palpation Back/Spine/Pelvis Other: unremarkable Skin General skin exam: no rashes or lesions noted Neuro General: patient oriented x3 Extrem General: Yes edema (1+) Psych Mental Status: mental status grossly normal Results Labs and Meds Result diagrams: 01/14/21 06:33 01/15/21 07:58 Lab results: Laboratory Results - last 24 hr 01/14/21 01/15/21 06:33 07:58 Sodium 142 Potassium 4.9 Chloride 106 Carbon Dioxide 29 Anion Gap 12 BUN 54 H Creatinine 2.30 H Estim Creat Clear Calc 36.0 Estimated GFR 29 Random Glucose 93 Calcium 9.3 Tacrolimus 12.7 Progress Note: A&P Assessment and plan (1) Atrial fibrillation with rapid ventricular response: Status: Acute (2) Acute systolic (congestive) heart failure: Status: Acute (3) Essential hypertension: Status: Acute (4) Renal transplant recipient: Status: Acute (5) Bipolar disorder: Status: Acute Assessment and Plan: In the most recent echocardiogram, LVEF was 15-20%. Possibly tachycardia mediated cardiomyopathy. In the past, cardiac catheterization had shown no significant disease. Cocaine may also play a role in his cardiomyopathy but in this admission, cocaine is negative. Cardioversion was attempted yesterday but he did not convert in spite of 2 attempts. May continue amiodarone that was just started. Continue beta-blockers but change to sustained release preparation. Continue anticoagulation. Potentially re-attempt in a few weeks time once Amiodarone loading has been completed. Fall Risk Details Current Medications: Current Medications Generic Name Dose Route Start Last Admin Trade Name Freq PRN Reason Stop Dose Admin Acetaminophen 650 mg 01/12/21 21:51 Acetaminophen 325 Mg Tablet PO Q6H PRN Pain, Mild (Pain Scale 1-3) Albuterol Sulfate 2 puff 01/12/21 21:51 Albuterol Sulfate 90 Mcg 8 Gm Inhaler INHALE Q6H PRN Respiratory Distress Amiodarone HCl 400 mg 01/13/21 10:00 01/15/21 08:33 Amiodarone Hcl 200 Mg Tablet PO 400 mg BID YOLANDA Administration Aripiprazole 30 mg 01/13/21 09:00 01/15/21 08:31 Aripiprazole 30 Mg Tablet PO 30 mg DAILY YOLANDA Administration Cyclobenzaprine HCl 10 mg 01/12/21 21:51 Cyclobenzaprine Hcl 10 Mg Tablet PO TID PRN muscle spasm Divalproex Sodium 1,000 mg 01/12/21 21:51 01/14/21 21:11 Divalproex Sodium Er 500 Mg Tab.Er.24h PO 1,000 mg BEDTIME YOLANDA Administration Divalproex Sodium 500 mg 01/15/21 09:00 01/15/21 08:41 Divalproex Sodium Er 500 Mg Tab.Er.24h PO 500 mg DAILY YOLANDA Administration Docusate Sodium 100 mg 01/12/21 21:51 Docusate Sodium 100 Mg Capsule PO DAILY PRN Constipation Furosemide 40 mg 01/15/21 09:00 Furosemide 40 Mg/4 Ml Vial IVPUSH DAILY YOLANDA Protocol Hydralazine HCl 10 mg 01/12/21 21:51 01/15/21 08:33 Hydralazine Hcl 10 Mg Tablet PO 10 mg BID YOLANDA Administration Protocol Isosorbide Dinitrate 5 mg 01/12/21 21:51 01/15/21 08:33 Isosorbide Dinitrate 5 Mg Tablet PO 5 mg BID YOLANDA Administration Protocol Lidocaine 1 patch 01/13/21 09:00 01/15/21 08:29 Lidocaine 4 % Patch Adh..Patch TRANSDERMA 1 patch DAILY YOLANDA Administration Magnesium Oxide 400 mg 01/13/21 08:30 01/15/21 08:29 Magnesium Oxide 400 Mg Tablet PO 400 mg BIDPC YOLANDA Administration Metoprolol Succinate 50 mg 01/14/21 21:00 01/15/21 08:39 Metoprolol Succinate Er 50 Mg Tab.Er.24h PO 50 mg BID YOLANDA Administration Protocol Omeprazole 20 mg 01/13/21 09:00 01/15/21 08:29 Omeprazole 20 Mg Capsule.Dr PO 20 mg DAILY YOLANDA Administration Ondansetron HCl 4 mg 01/12/21 21:51 Ondansetron Hcl 4 Mg/2 Ml Vial IVPUSH Q8H PRN Nausea and Vomiting Ondansetron HCl 4 mg 01/14/21 10:11 Ondansetron Hcl 4 Mg/2 Ml Vial IVPUSH ONCE PRN Nausea and Vomiting Pharmacy Consult 1 each 01/12/21 19:05 Consult Rx Perform Med Rec MISCELLANE ONCE PRN Consult order Prednisone 10 mg 01/13/21 09:00 01/15/21 08:29 Prednisone 10 Mg Tablet PO 10 mg DAILY YOLANDA Administration Rivaroxaban 15 mg 01/13/21 09:00 01/15/21 08:29 Rivaroxaban 15 Mg Tablet PO 15 mg DAILY YOLANDA Administration Sodium Chloride 3 ml 01/13/21 00:00 01/15/21 08:29 0.9 % Sodium Chloride Flush 3 Ml Syringe IVFLUSH 3 ml QSHIFT YOLANDA Administration Tacrolimus 2 mg 01/12/21 21:51 01/15/21 08:29 Tacrolimus 1 Mg Capsule PO 2 mg BID YOLANDA Administration Time Spent With Patient Time: Total time spent is greater than 50% in coordination of care (as documented) at patient's floor/unit and/or counseling patient: Time with patient: less than 15 minutes
--- NOTE | 2021-01-15 12:56 | MHC.CM.PN ---
Patient will transport to home today at 1PM via [facility] to correct [facility]- [address] [facility] ([facility] aware of correct address and dc summary has been successfully faxed to Adonis Solorio/ RN- Alicia Walters at fax # [phone]
--- NOTE | 2021-01-15 18:32 | PM.PNNEP ---
Subjective Subjective Date of Service: 01/15/21 Interval history: Seen and examined. Events noted. Physical Exam Vital Signs: Vital Signs: Last Vital Signs Temp 98.1 F 01/15/21 11:57 Pulse 81 01/15/21 11:57 Resp 20 01/15/21 11:57 BP 151/98 H 01/15/21 11:57 Pulse Ox 95 01/15/21 11:57 Body Mass Index 27.8 Const: General: cooperative, comfortable, no acute distress, alert and awake Nutritional Appearance: well nourished Orientation/consciousness: patient oriented x3 HENMT: Other: Unremarkable Head: Yes normocephalic and Yes atraumatic Eyes: General: appearance normal, both eyes and all related structures Sclerae: sclerae normal Neck: Neck: Yes normal visual inspection Chest: Chest palpation & inspection: normal inspection of the chest Resp: Effort & Inspection: normal respiratory effort and no respiratory distress Auscultation: clear to auscultation bilaterally, no crackles and no wheezes Cardio: Jugular venous distension: no JVD Palpation: normal PMI Rate: regular rate Rhythm: regular rhythm and abnormal rhythm (irregular) Heart sounds: S1 normal heart sound present, S2 normal heart sound present, no gallops, no murmurs and no rubs GI: Palpation (GI): Soft to palpation and nontender Auscultation: normal bowel sounds Back/Spine/Pelvis: Other: unremarkable Skin: General skin exam: no rashes or lesions noted Neuro: General: patient oriented x3 Cranial nerves: Yes CN's II-XII intact bilaterally and Yes Bilaterally intact EOM present Cognition (Neuro): normal cognition Extrem: Other: 3+ edema b/l General: Yes normal to inspection and Yes edema (1+) Psych: Mental Status: mental status grossly normal Objective Data Labs CBC & Chem 7: 01/14/21 06:33 01/15/21 07:58 Labs: Laboratory Results - last 24 hr 01/14/21 01/15/21 06:33 07:58 Sodium 142 Potassium 4.9 Chloride 106 Carbon Dioxide 29 Anion Gap 12 BUN 54 H Creatinine 2.30 H Estim Creat Clear Calc 36.0 Estimated GFR 29 Random Glucose 93 Calcium 9.3 Tacrolimus 12.7 Assessment & Plan Assessment and plan (1) Pacemaker: Problem details: (10/2019 - due to mobitz2 heart block) Status: Inactive Assessment and Plan: 1. Syncope Event: w/u in progress; per card the plan is to astart amiodarone and proceed with CVersion 2. ANA but really he has CKD with SCr has ranged typically in 1.5-2.0 range and he has signif Uprot in past; ques of prog CKD chronic rejection, [facility] ass[facility] or transplant Glomopathy 3. Edema: improved with lasix; Nephrotic Syndrome r/o so loks like its d/t his CM and low EF state 4. DM 5. Pafibb 6. H/O cocaine use REC: cont current meds; check tacro level; avoid Ntoxins; cont diuretics; will look to starting REBEKAH or ARB at some point; ques candidate for [facility] given his med noncomplinace and falling epsidoes ok to d/c with close f/u as an outpt will follow wit team Time Spent With Patient Time: Total time spent is greater than 50% in coordination of care (as documented) at patient's floor/unit and/or counseling patient:
== END 2021-01-15 13:19 | disposition home or self-care (01) | DRG 201 ==
LOC: HO.ED 18:28 → HO.EDOVER 21:22 → HO.IMC 01-13 06:17
PROVIDERS: Internal Medicine; Internal Medicine Nephrology; Physician Assistant Medical; Admitting Provider Internal Medicine; Emergency Provider Emergency Medicine; PCP Internal Medicine; Visit Provider Family Medicine
PROC: 5A2204Z Restoration of Cardiac Rhythm, Single (ICD-10-PCS; principal; 2021-01-14 10:30)
DX: I48.0 Paroxysmal atrial fibrillation (principal); I50.23 Acute on chronic systolic (congestive) heart failure; D69.6 Thrombocytopenia, unspecified; E11.22 Type 2 diabetes mellitus with diabetic chronic kidney disease; N17.9 Acute kidney failure, unspecified; E83.42 Hypomagnesemia; Z94.0 Kidney transplant status; N18.32 Chronic kidney disease, stage 3b; G40.909 Epilepsy, unspecified, not intractable, without status epilepticus; F17.210 Nicotine dependence, cigarettes, uncomplicated; F31.9 Bipolar disorder, unspecified; Z20.822 Contact with and (suspected) exposure to COVID-19; Z71.6 Tobacco abuse counseling; I13.0 Hypertensive heart and chronic kidney disease with heart failure and stage 1 through stage 4 chronic kidney disease, or unspecified chronic kidney disease; Z86.718 Personal history of other venous thrombosis and embolism; Z95.0 Presence of cardiac pacemaker; Z79.01 Long term (current) use of anticoagulants; Z79.52 Long term (current) use of systemic steroids; Z79.899 Other long term (current) drug therapy
CPT/HCPCS: 36415; 70450; 71045; 80048; 80076; 80197; 80307; 80320; 82040; 82550; 82947; 83690; 83735; 83880; 84156; 84484; 85025; 85027; 85610; 85730; 87635; 92960; 93005; 96374; 99285; J1940; J3475

== ENCOUNTER 2021-01-21 08:45 | Emergency (ER) | payer OTHER, SELFPAY ==
--- NOTE | ~2021-01-21 | XR_ITS ---
EXAMINATION: XR SHOULDER, RIGHT CLINICAL INFORMATION: Trauma, pain COMPARISON: None TECHNIQUE: Right shoulder is imaged in 3 views. FINDINGS: There is no visible fracture or dislocation. The acromioclavicular alignment is normal. There is small benign oval calcification in region of distal coracoclavicular ligament. Otherwise no visible rotator cuff calcifications. XR/XR shoulder RT min 2V IMPRESSION: No fracture or dislocation.
--- NOTE | ~2021-01-21 | US_ITS ---
EXAMINATION: US VENOUS WITH DOPPLER UPPER EXTREMITY, RIGHT CLINICAL INFORMATION: Right shoulder pain. Question DVT. COMPARISON: None TECHNIQUE: Ultrasound of the upper extremity is performed using compression sonography and color and pulse Doppler flow with assessment of augmentation of flow. There is also imaging and Doppler assessment of the jugular and subclavian veins. Spectral analysis with color-flow imaging is performed. FINDINGS: Respiratory variation, normal compression, and augmented flow are noted throughout the upper extremity including the axillary, brachial, cubital, and radial and ulnar veins. There is normal flow in the internal jugular and subclavian veins. There is no visible deep or superficial thrombophlebitis. If the patient's symptoms progress, a followup ultrasound in 5 -7 days might be of value to exclude proximal propagation from a nonvisualized distal arm vein. US/US venous duplex UE RT IMPRESSION: No acute DVT demonstrated in the right upper extremity
--- NOTE | ~2021-01-21 | XR_ITS ---
EXAMINATION: XR ELBOW, RIGHT CLINICAL INFORMATION: Pain. COMPARISON: None TECHNIQUE: AP, lateral, and oblique views of the right elbow. FINDINGS: There is a large osteophyte along the olecranon head. No acute fracture, dislocation seen. No abnormal joint effusion. There is extensive brachial arterial calcification. The soft tissues are normal XR/XR elbow RT min 3V IMPRESSION: Large osteophyte along the olecranon head. No visible acute fracture or dislocation seen.
--- NOTE | ~2021-01-21 | XR_ITS ---
EXAMINATION: XR FOREARM, RIGHT CLINICAL INFORMATION: Trauma, pain COMPARISON: None TECHNIQUE: The right forearm is imaged in 3 views. FINDINGS: The lateral views are obliqued and the olecranon is not well visualized. There is also subtle a dressing or clothing artifact overlying this area. There is no gross fracture or dislocation. No arthropathy. Bony mineralization is normal. There are extensive vascular calcifications present. XR/XR forearm RT 2V IMPRESSION: 1. Although no gross fracture or dislocation is demonstrated, the lateral views are obliqued and there is artifact outside of the patient limiting assessment of the olecranon. Recommend repeat lateral view coned to the elbow. 2. Otherwise no gross fracture or dislocation.
[2021-01-21 08:56] VITALS: BP 155/98; O2SAT 98
[2021-01-21 08:57] VITALS: BP 196/106; PULSE 60; RESP 19; TEMP 36.5; O2SAT 96; BMI 27.6
--- NOTE | 2021-01-21 08:59 | ED.EXTPRO ---
HPI - Extremity Problem General Chief complaint: Extremity Injury, Upper Stated complaint: right shoulder/elbow pain, no injury Time Seen by Provider: 01/21/21 09:15 Source: patient Mode of arrival: ambulatory Limitations: no limitations History of Present Illness HPI Narrative: Patient presents to ED for right shoulder pain and thinks it is dislocated. Patient states 4 days ago he was trying getting out of bed and while rolling in bed and using right upper extremity to move in awkward position and he believes it came out of place or twisted and since then has not been able to lift the right upper extremity. Patient also states elbow pain also. Patient denies falling to the ground or hitting head. He states he did the wrong moving maybe popped out shoulder. Patient states no chest pain or shortness of breath. Patient denies any chest pain radiating to the back, ripping sensation in chest, or back pain. Patient states right scapular pain only when he tries to move his right shoulder. Patient denies falling to the ground. Patient denies any blunt trauma to body. Patient denies any slurred speech, loss of vision, paralysis of extremities or facial droop. MD Complaint: extremity pain Related Data Home Medications Medication Instructions Recorded Confirmed aripiprazole 30 mg tablet 30 mg PO DAILY 08/13/20 01/12/21 omeprazole 20 mg capsule,delayed 20 mg PO DAILY 08/13/20 01/12/21 release tacrolimus 1 mg capsule, 2 mg PO BID 08/13/20 01/12/21 immediate-release Phospha 250 Neutral 1 tab PO DAILY 12/08/20 01/12/21 divalproex [Depakote ER] 1,000 mg PO BEDTIME 12/08/20 01/12/21 divalproex [Depakote ER] 500 mg PO DAILY 12/08/20 01/12/21 prednisone 10 mg PO DAILY 01/12/21 01/12/21 Previous Rx's Medication Instructions Recorded magnesium oxide 400 mg PO BIDPC #60 tab 12/17/20 cyclobenzaprine 10 mg PO TID PRN #10 tab 12/30/20 lidocaine [Lidoderm] 1 patch TOPICAL DAILY #15 ea 12/30/20 furosemide 40 mg tablet 40 mg PO BID@0900,1800 #180 tab 01/01/21 hydralazine 10 mg tablet 10 mg PO BID #180 tab 01/01/21 isosorbide dinitrate 5 mg tablet 5 mg PO BID #180 tab 01/01/21 rivaroxaban 15 mg tablet 15 mg PO DAILY #90 tab 01/01/21 albuterol sulfate 90 mcg/actuation 2 puff INHALATION Q6H PRN #8.5 g 01/14/21 aerosol inhaler amiodarone See Rx Instructions .ROUTE 01/15/21 .COMPLEX #90 tab metoprolol succinate [Toprol XL] 50 mg PO BID 30 Days #60 tab 01/15/21 oxycodone-acetaminophen [Percocet] 1 tab PO TID PRN #9 tab 01/21/21 Allergies Allergy/AdvReac Type Severity Reaction Status Date / Time indomethacin [Indocin] Allergy Unknown Unknown Verified 01/21/21 09:06 Review of Systems Review of Systems: Yes all other systems are reviewed and are negative Constitutional: Constitutional: Reports as per HPI and Reports no additional constitutional complaints Eyes: Eyes: Reports as per HPI and Reports no additional eye complaints ENT: Reports system reviewed and no additional complaints, except as documented and Reports as per HPI Cardiovascular: Cardiovascular: Reports as per HPI and Reports no additional cardiovascular complaints Respiratory: Respiratory: Reports as per HPI and Reports no additional respiratory complaints Gastrointestinal: Gastrointestinal: Reports as per HPI and Reports no additional gastrointestinal complaints Genitourinary: Genitourinary: Reports no additional male genitourinary complaints and Reports as per HPI Musculoskeletal: Musculoskeletal: Reports no additional musculoskeletal complaints, Reports as per HPI and Reports arthralgias (Shoulder pain) Neurologic: Reports system reviewed and no additional complaints, except as documented and Reports as per HPI Psychiatric: Psychiatric: Reports no additional psychiatric complaints and Reports as per HPI [facility] Past Medical History Medical History (Updated 01/21/21 @ 11:38 by GAVIN Valle) Afib Asthma Atrial fibrillation Bipolar disorder Cellulitis of left foot Cellulitis of left lower extremity Cocaine use Congestive heart failure DVT (deep venous thrombosis) Essential hypertension Gout Heart failure with reduced ejection fraction Hip osteoarthritis History of seizures Obesity Pacemaker PAF (paroxysmal atrial fibrillation) Polysubstance abuse Renal transplant recipient Second degree heart block Subdural hematoma Thrombocytopenia Tobacco abuse Unilateral primary osteoarthritis, left knee Urinary bladder cancer Surgical History Abscess of arm, left H/O cardiac radiofrequency ablation History of cardiac catheterization History of removal of cyst History of removal of cyst Kidney replaced by transplant Kidney transplant recipient Family History Family History Father Prostate cancer Mother No problems noted. Brother Cancer Social History Social History Household Members: None Housing: Other Housing Other:: Rehab facility Do you presently have visiting nurse or other home services: Yes Alcohol intake: never Smoking Status: Current every day smoker Tobacco Type: Cigarette Packs Per Day: 1 Cigarettes Per Day: 3 Second Hand Smoke Exposure: No Substance Use Type: Crack/Cocaine Advance Directives: No Advance Directives Information Provided: No Advance Directives Date on File: 12/25/20 service: No Current occupational status: unemployed Physical Exam Vital Signs: Vital Signs: Last Vital Signs Temp 97.7 F 01/21/21 08:57 Pulse 78 01/21/21 10:56 Resp 16 01/21/21 10:56 BP 153/106 H 01/21/21 10:56 Pulse Ox 96 01/21/21 10:56 Body Mass Index 27.6 Const: General: cooperative, healthy appearing, comfortable, well developed and alert Orientation/consciousness: patient oriented x3 HENMT: Head: Yes normal to inspection, Yes No palpable skull fracture present, Yes normocephalic and Yes atraumatic Eyes: General: appearance normal, both eyes and all related structures Neck: Neck: Yes normal visual inspection, Yes full ROM, Yes no lymphadenopathy, Yes no meningeal signs, Yes trachea midline, Yes supple and No tender Chest: Chest palpation & inspection: normal inspection of the chest and normal palpation of entire chest wall Resp: Effort & Inspection: normal respiratory effort and able to speak in complete sentences Auscultation: clear to auscultation bilaterally Cardio: Jugular venous distension: no JVD Heart sounds: S1 normal heart sound present and S2 normal heart sound present GI: Inspection: Yes normal to inspection and No abdominal wall ecchymosis Palpation (GI): Soft to palpation, not firm, nontender, no guarding and not rigid : General: No CVA tenderness and Yes no CVA tenderness Back/Spine/Pelvis: Back: no CVA tenderness, No CVA tenderness and No back tenderness Skin: General skin exam: no rashes or lesions noted and abnormal elasticity Neuro: Other: Negative facial droop. Negative slurred speech. All extremities equal strength 5+. Not able to evaluate for pronator drift due to severe pain in right shoulder. Rapid hand movement intact. Negative for any neuro deficit. General: patient oriented x3, no meningeal signs and CN's II-XI intact bilaterally Cranial nerves: Yes CN's II-XII intact bilaterally Extrem: Other: Right upper extremity: decreased range of motion due to pain. Tenderness on palpation of shoulder. Positive for tenderness on palpation of elbow. Negative for any swelling, redness, or obvious deformity of right shoulder or rest the right upper extremity. Patient has chronic ecchymosis of forearm due to last admission for IV access and and being on blood thinner. Palpable and neuro exam is intact. Motor exam limited due to pain. All other extremities motor/neuro/vascular exam is intact. Negative for trauma. All extremities vascular and neuro exam are equal. General: Yes normal to inspection Psych: Appearance: grossly normal, well kempt and not disheveled Course Course Course Narrative: I do Not suspect any cardiac etiology. Patient having limited range of motion of shoulder and elbow due to pain. Was sent for x-ray of right upper extremity to rule out any fracture or dislocation. We will give IM morphine. Negative for scapular deformity or tenderness to indicate scapular fracture. Patient did not have any severe forms of trauma. Patient did not have any blunt trauma to the body back or upper torso. Patient did not fall to the ground. Patient will be given pain meds and review vital signs. Blood pressure elevated due to pain. Reevaluation(s) Reevaluation #1: Blood pressure now on the monitor after receiving morphine 169/100. Patient now able to flex and extend forearm which he was not able to do before being given morphine. Patient still have shoulder tenderness on palpation. Shoulder x-ray negative for any fracture or dislocation. X-ray shows calcifications at coracoacromial ligament ossification ( this area of location of shoulder's tenderness) with could be strong likely cause of pain and also possible shoulder pain due to one of shoulder muscles being teared due to history of twisting shoulder while trying to get out of bed. Will send for ultrasound to rule out upper extremity DVT. Reevaluation #2: Elbow x-ray negative for fracture. Elbow x-ray shows osteophyte. waiting For ultrasounds of her upper extremity. Reevaluation #3: Ultrasound right upper extremity negative for any blood clot. Patient states pain is improving. Movement of right forearm patient does cause shoulder pain. Patient informed he will need MRI to see if there is any tear and ligament/shoulder muscles due to patient are currently twisting his right shoulder while trying to get up from the bed and rolling at the same time. Not suspect any cardiac issues. Patient is not having any chest pain radiating to the back, or shortness of breath. Once again pain only in the right shoulder/elbow that is worse on palpation and movement of forearm/Right upper extremity. . Not suspecting any Aortic dissection. Equal pulses in all extremities. Patient denies having any chest pain radiating to the back. Patient denies having any chest pain. Negative for any focal deficits. Also patient is presenting 4 days after symptom. Not suspecting PE. Patient will be placed in sling and discharged with pain medication. Recommend MRI or orthopedic follow-up. Not suspecting any stroke. Negative for any neuro deficits. MDM - Extremity (Nontraumatic) MDM Narrative Medical decision making narrative: Shoulder sprain possible shoulder muscle tear. Discharge Plan Discharge Clinical Impression: Sprain of right shoulder, Arthritis of elbow, right, Arthritis of right shoulder region Patient Disposition: Home, Self-Care Instructions: Osteoarthritis (ED), Shoulder Sprain (ED), Calcific Tendinitis (ED), Arthritis (ED) Additional Instructions: Return to the ED immediately for swelling of right upper extremity, chest pain radiating to the back, shortness of breath, redness, blue discoloration of the fingertips, worsening pain, fever, chills, or any other concerning symptoms. Recommend follow-up with Orthopedic or PCP for MRI for possible shoulder muscle tear for evaluation of tendinitis. Shoulder x-ray came back negative for any fracture or dislocation. Does shows calcification in distal coracoclavicular ligament. Elbow x-ray shows large arthritis. Ultrasound right upper extremity negative for blood clot. Sling will be used for comfort, but does not have to be on at all times. Prescriptions: New oxycodone-acetaminophen [Percocet] 5-325 mg tablet 1 tab PO TID PRN (Reason: pain) Qty: 9 RF: 0 No Action furosemide 40 mg tablet 40 mg PO BID@0900,1800 Qty: 180 RF: 2 hydralazine 10 mg tablet 10 mg PO BID Qty: 180 RF: 2 isosorbide dinitrate 5 mg tablet 5 mg PO BID Qty: 180 RF: 2 Xarelto 15 mg tablet 15 mg PO DAILY Qty: 90 RF: 2 albuterol sulfate 90 mcg/actuation HFA aerosol inhaler 2 puff inhalation Q6H PRN (Reason: Respiratory Distress) Qty: 8.5 RF: 0 divalproex [Depakote ER] 500 mg Tablet Extended Release 24 Hr 500 mg PO DAILY RF: 0 divalproex [Depakote ER] 500 mg Tablet Extended Release 24 Hr 1,000 mg PO BEDTIME RF: 0 Phospha 250 Neutral 250 mg Tablet 1 tab PO DAILY RF: 0 magnesium oxide 400 mg (241.3 mg magnesium) Tablet 400 mg PO BIDPC Qty: 60 RF: 0 cyclobenzaprine 10 mg tablet 10 mg PO TID PRN (Reason: muscle spasm) Qty: 10 RF: 0 lidocaine [Lidoderm] 5 % adhesive patch,medicated 1 patch topical DAILY Qty: 15 RF: 0 prednisone 10 mg tablet 10 mg PO DAILY RF: 0 amiodarone 200 mg tablet See Rx Instructions .ROUTE .COMPLEX Qty: 90 RF: 0 metoprolol succinate [Toprol XL] 50 mg tablet extended release 24 hr 50 mg PO BID 30 Days Qty: 60 RF: 0 omeprazole 20 mg capsule,delayed release(DR/EC) 20 mg PO DAILY RF: 0 aripiprazole [Abilify] 30 mg tablet 30 mg PO DAILY RF: 0 tacrolimus [Prograf] 1 mg capsule 2 mg PO BID RF: 0 Referrals: Matt Denson MD [Physician] - 2 days (Right shoulder pain possible muscle tear versus tendinitis. Will need MRI.) Interventions: ED Discharge Assessment Last Done: 01/21/21 12:50 Discharge Date/Time: 01/21/21 13:01 Print Language: Congolese
[2021-01-21 09:39] VITALS: BP 182/100; PULSE 60; RESP 18; O2SAT 96
[2021-01-21] MEDS: Morphine Sulfate 4 MG/ML CARTRIDGE IM (09:39)
--- NOTE | 2021-01-21 09:41 | PC.NURSE ---
Pt sent to x=-ray. Awaiting results. IM morphine given. BP trending down slightly at this time. Will re-assess once pain is better controlled.
[2021-01-21 10:00] VITALS: BP 168/99; PULSE 80; RESP 16; O2SAT 96
[2021-01-21 10:56] VITALS: BP 153/106; PULSE 78; RESP 16; O2SAT 96
--- NOTE | 2021-01-21 10:57 | PC.NURSE ---
Pt verbalizing that his pain remains 10/10 but he is extremely somnolent at this time. He is easily aroused to verbal command but has difficulty keeping eyes open. VSS at this time. BP is trending down.
--- NOTE | 2021-01-21 12:51 | PC.NURSE ---
Sling applied to right arm. Pt's ROM to right arm visibly improving. Warm handoff given to Panfilo (Homecare RN) as well as Tom Wilkinson ([facility] RN).
--- NOTE | 2021-01-21 13:00 | PC.NURSE ---
[facility] van transport for discharge. Pt was able to ambulate with a steady gait.
== END 2021-01-21 13:01 | disposition home or self-care (01) ==
PROVIDERS: Emergency Provider Emergency Medicine; PCP Internal Medicine
DX: S43.401A Unspecified sprain of right shoulder joint, initial encounter (principal); X50.1XXA Overexertion from prolonged static or awkward postures, initial encounter; M19.011 Primary osteoarthritis, right shoulder; M75.31 Calcific tendinitis of right shoulder; M19.021 Primary osteoarthritis, right elbow; Y93.84 Activity, sleeping; Y92.013 Bedroom of single-family (private) house as the place of occurrence of the external cause; Y99.8 Other external cause status
CPT/HCPCS: 73030; 73080; 73090; 93971; 96372; 99284; J2270

== ENCOUNTER 2021-01-27 21:40 | Inpatient (IN) | payer OTHER, SELFPAY ==
--- NOTE | ~2021-01-27 | CT_ITS ---
EXAMINATION: CT CHEST, ABDOMEN AND PELVIS WITHOUT IV CONTRAST CLINICAL INFORMATION: Evaluate for aspiration pneumonia and pleural effusion. History of seen due to infection. COMPARISON: Previous CT of the abdomen and pelvis 01/27/2021 and previous chest x-rays most recent 02/02/2021 TECHNIQUE: Axial images through the chest, abdomen and pelvis without IV and following oral contrast. Sagittal and coronal reconstructions on the technologist workstation were performed. Patient was 457+99 3 mg/cm. This CT examination was performed using dose optimization techniques as appropriate, variously including the following: *Automated exposure control *Adjustment of mA and/or kV according to patient size (this includes techniques or standardized protocols for targeted exams where dose is matched to indication/reason for exam; i.e. extremities or head) *Use of iterative reconstruction technique FINDINGS: Chest: There is atelectasis at the lung bases. No definite pneumonia is seen. There is a left subclavian dual chamber pacemaker. The heart is enlarged. There is coronary artery and aortic valve calcification. There is no pericardial effusion. The thoracic aorta is normal in caliber. There are no enlarged hilar or mediastinal lymph nodes. There is trace bilateral pleural effusions. No chest wall mass or enlarged axillary nodes are seen. There are degenerative changes of the spine. There is curvature of the mid and lower thoracic spine to the right. Abdomen and pelvis: The liver is unremarkable. There is dependent high attenuation seen in the gallbladder questionable for sludge versus vicarious excretion of previously administered contrast. There is no intra or extrahepatic biliary duct dilatation. The spleen is unremarkable. The pancreas is unremarkable. The adrenal glands are unremarkable. The [place] kidneys are atrophic. There are bilateral low-attenuation renal lesions probably representing cysts. There is a renal transplant seen in the right lower quadrant which is unremarkable. Bladder is unremarkable. Prostate gland does not appear enlarged. There may be mild wall thickening of the distal sigmoid colon versus changes due to underdistention. The remainder of the bowel is unremarkable. There is no evidence of obstruction. There is no free air.. The appendix is unremarkable. The stomach is unremarkable. No ascites or adenopathy is seen. There is evidence of atherosclerotic disease. No aneurysm is seen. There is a small left inguinal hernia containing fat. There are degenerative changes of the spine. CT/CT chest wo con IMPRESSION: Chest: Atelectasis at the lung bases and trace bilateral pleural effusions. No definite evidence of pneumonia. Enlarged heart. Abdomen and pelvis: Question mild wall thickening of the distal sigmoid colon. No evidence of obstruction. Atrophic-appearing kidneys. Assess satisfactory appearance of right lower quadrant renal transplant. Dependent high attenuation in the gallbladder questionable for sludge versus vicarious excretion of previously administered IV contrast.
--- NOTE | ~2021-01-27 | CT_ITS ---
EXAMINATION: CT CHEST, ABDOMEN AND PELVIS WITHOUT IV CONTRAST CLINICAL INFORMATION: Evaluate for aspiration pneumonia and pleural effusion. History of seen due to infection. COMPARISON: Previous CT of the abdomen and pelvis 01/27/2021 and previous chest x-rays most recent 02/02/2021 TECHNIQUE: Axial images through the chest, abdomen and pelvis without IV and following oral contrast. Sagittal and coronal reconstructions on the technologist workstation were performed. Patient was 457+99 3 mg/cm. This CT examination was performed using dose optimization techniques as appropriate, variously including the following: *Automated exposure control *Adjustment of mA and/or kV according to patient size (this includes techniques or standardized protocols for targeted exams where dose is matched to indication/reason for exam; i.e. extremities or head) *Use of iterative reconstruction technique FINDINGS: Chest: There is atelectasis at the lung bases. No definite pneumonia is seen. There is a left subclavian dual chamber pacemaker. The heart is enlarged. There is coronary artery and aortic valve calcification. There is no pericardial effusion. The thoracic aorta is normal in caliber. There are no enlarged hilar or mediastinal lymph nodes. There is trace bilateral pleural effusions. No chest wall mass or enlarged axillary nodes are seen. There are degenerative changes of the spine. There is curvature of the mid and lower thoracic spine to the right. Abdomen and pelvis: The liver is unremarkable. There is dependent high attenuation seen in the gallbladder questionable for sludge versus vicarious excretion of previously administered contrast. There is no intra or extrahepatic biliary duct dilatation. The spleen is unremarkable. The pancreas is unremarkable. The adrenal glands are unremarkable. The [place] kidneys are atrophic. There are bilateral low-attenuation renal lesions probably representing cysts. There is a renal transplant seen in the right lower quadrant which is unremarkable. Bladder is unremarkable. Prostate gland does not appear enlarged. There may be mild wall thickening of the distal sigmoid colon versus changes due to underdistention. The remainder of the bowel is unremarkable. There is no evidence of obstruction. There is no free air.. The appendix is unremarkable. The stomach is unremarkable. No ascites or adenopathy is seen. There is evidence of atherosclerotic disease. No aneurysm is seen. There is a small left inguinal hernia containing fat. There are degenerative changes of the spine. CT/CT abdomen pelvis wo con IMPRESSION: Chest: Atelectasis at the lung bases and trace bilateral pleural effusions. No definite evidence of pneumonia. Enlarged heart. Abdomen and pelvis: Question mild wall thickening of the distal sigmoid colon. No evidence of obstruction. Atrophic-appearing kidneys. Assess satisfactory appearance of right lower quadrant renal transplant. Dependent high attenuation in the gallbladder questionable for sludge versus vicarious excretion of previously administered IV contrast.
--- NOTE | ~2021-01-27 | XR_ITS ---
EXAMINATION: XR CHEST CLINICAL INFORMATION: Evaluate aspiration pneumonia COMPARISON: February 02, 2021 TECHNIQUE: AP portable chest FINDINGS: There is similar appearance to prior study of February 02, 2021 without definite acute parenchymal disease. No pneumothorax or pleural effusion seen. Heart normal size. No evidence of pulmonary edema. Pacemaker in place. XR/XR chest 1V IMPRESSION: No acute disease.
--- NOTE | ~2021-01-27 | US_ITS ---
EXAMINATION: US ABDOMEN LIMITED CLINICAL INFORMATION: Evaluate gallbladder, abnormal on CT. COMPARISON: CT 01/27/2021 TECHNIQUE: Real-time imaging of the right upper quadrant abdominal viscera. FINDINGS: Per technologist note, exam is limited due to patient inability to hold breath as well as bowel gas. PANCREAS: The visualized proximal portion of the pancreas is unremarkable. The distal portion is obscured secondary to overlying bowel gas. LIVER: The liver is normal in size. The liver contour is normal. Parenchymal echogenicity is normal. No focal hepatic lesion. There is no intrahepatic biliary duct dilatation seen. GALLBLADDER: The gallbladder is physiologically distended without evidence of stones, sludge, polyps, wall thickening or pericholecystic fluid. Sonographic [place] sign is reportedly negative. COMMON BILE DUCT: Normal in caliber measuring 0.6 cm in diameter. RIGHT KIDNEY: Difficult to visualize due to atrophy, measuring approximately 7.4 cm in length. Small cysts noted along with a couple tiny calculi. No hydronephrosis. RIGHT PELVIC TRANSPLANT KIDNEY: No hydronephrosis. The kidney measures 14.6 cm in length. FREE FLUID: None. US/US abdomen limited IMPRESSION: Normal sonographic appearance of the gallbladder. No acute findings identified.
--- NOTE | ~2021-01-27 | XR_ITS ---
EXAMINATION: XR CHEST CLINICAL INFORMATION: Fever. Risk of aspiration. COMPARISON: January 12, 2021 and studies dating back to March 11, 2020 TECHNIQUE: AP portable view of the chest was obtained. FINDINGS: The cardiopericardial silhouette is enlarged. Dual-chamber pacemaker in place. No pneumothorax or pleural effusion. There are some patchy regions of density seen about the lung bases which may be vascular in nature however a few patchy regions of disease cannot be excluded on this plain film study. XR/XR chest 1V IMPRESSION: Question mild pulmonary vascular congestion versus a few patchy regions of disease about the lower chest bilaterally.
--- NOTE | ~2021-01-27 | MR_ITS ---
EXAMINATION: MR BRAIN WITHOUT CONTRAST CLINICAL INFORMATION: Encephalopathy. COMPARISON: CT head from 02/02/2021. TECHNIQUE: MRI of the brain was obtained using routine sequences without contrast. FINDINGS: No focal restricted diffusion is demonstrated to suggest acute or subacute cerebral ischemia. No evidence of acute or chronic hemorrhagic products on heme-sensitive imaging. Scattered periventricular and deep white matter T2 FLAIR hyperintensities consistent with mild underlying microangiopathy. Proportional prominence of the ventricles and sulcal spaces without evidence of obstructive hydrocephalus. No abnormal mass effect. No midline shift. Normal appearance of the pituitary gland. Normal positioning of the cerebellar tonsils. Normal arterial and venous vascular flow voids are present. Normal, homogeneous marrow signal. Degenerative spondyloarthropathy of the visualized upper cervical spine. Moderate mucosal thickening of the paranasal sinuses. Atelectasis of the left maxillary sinus. Mild left-sided mastoid effusion. No signal abnormalities within the right-sided mastoid. MR/MR head/brain wo con IMPRESSION: 1. No acute intracranial abnormalities. 2. Mild underlying microangiopathy and generalized cerebral volume loss.
--- NOTE | ~2021-01-27 | CT_ITS ---
EXAMINATION: CT HEAD WITHOUT CONTRAST CLINICAL INFORMATION: Acute mental status change COMPARISON: Previous head CT most recent January 2021 4, TECHNIQUE: Contiguous axial imaging was performed from the skull base to vertex without intravenous administration of contrast. This CT examination was performed using dose optimization techniques as appropriate, variously including the following: *Automated exposure control *Adjustment of mA and/or kV according to patient size (this includes techniques or standardized protocols for targeted exams where dose is matched to indication/reason for exam; i.e. extremities or head) *Use of iterative reconstruction technique DLP: 865 mGy-cm FINDINGS: There is no evidence of acute intracranial hemorrhage or territorial infarction. No abnormal mass effect or midline shift is seen. [place] to white matter differentiation is well preserved. No extra-axial fluid collections are identified. The ventricles are normal in size. There is evidence of atherosclerotic disease. There is no abnormal attenuation within the brain parenchyma. The osseous structures and soft tissues are normal. There are inflammatory changes in the left maxillary sinus. Visualized paranasal sinuses mastoid air cells and middle ears are otherwise clear. CT/CT head/brain wo con IMPRESSION: No acute findings. Inflammatory change in the left maxillary sinus.
--- NOTE | ~2021-01-27 | XR_ITS ---
EXAMINATION: XR ABDOMEN KUB CLINICAL INDICATION: Pain COMPARISON: None TECHNIQUE: AP view of the abdomen. FINDINGS: There is a nonobstructive bowel gas pattern. Scattered gas throughout small and large bowel. Gaseous distention of the stomach. Degenerative changes noted in the spine. XR/XR KUB IMPRESSION: Nonobstructive bowel gas pattern. Gaseous distention of the stomach.
--- NOTE | ~2021-01-27 | CT_ITS ---
EXAMINATION: CT HEAD WITHOUT CONTRAST CLINICAL INFORMATION: Altered mental status COMPARISON: CT head 02/02/2021 TECHNIQUE: Contiguous axial imaging was performed from the skull base to vertex without intravenous administration of contrast. Coronal and sagittal reformatted images are performed at the CT scanner This CT examination was performed using dose optimization techniques as appropriate, variously including the following: *Automated exposure control *Adjustment of mA and/or kV according to patient size (this includes techniques or standardized protocols for targeted exams where dose is matched to indication/reason for exam; i.e. extremities or head) *Use of iterative reconstruction technique DLP: 797 mGy-cm FINDINGS: There is no evidence of acute intracranial hemorrhage or territorial infarction. No abnormal mass effect or midline shift is seen. [place] to white matter differentiation is well preserved. No extra-axial fluid collections are identified. There is generalized global volume loss. There is moderate prominence of the ventricles and the sulci. There are vascular calcifications of the internal carotid arteries bilaterally. The osseous structures and soft tissues are normal. There is mild mucosal thickening in the inferior left maxillary sinus. Mastoid air cells and middle ear cavities are normally aerated. CT/CT head/brain wo con IMPRESSION: No acute intracranial pathology.
--- NOTE | ~2021-01-27 | FL_ITS ---
EXAMINATION: FL GUIDED LUMBAR PUNCTURE CLINICAL INFORMATION: Encephalopathy. COMPARISON: MRI of the head of 02/03/[address] of the head of 02/02/2021 TECHNIQUE: Fluoroscopic-guided lumbar puncture. FINDINGS: Patient was unable to consent for procedure, and no family members are available, and there is no health care proxy. Due to medical necessity as attested to by Dr. Almaraz, a 2 physician consent due to medical necessity was signed. Using sterile technique and fluoroscopic guidance, a 22-gauge spinal needle was placed from a posterior midline approach into the thecal sac at the L4-L5 level. Opening pressure was 15 cm of water. A total of 8 mL of cerebrospinal fluid was collected. The fluid appeared clear with no obvious blood or xanthochromic fluid. FLUOROSCOPY TIME: 0.2 minutes DOSE AREA PRODUCT: 0.756 Gy-cm2 (zuñiga-centimeter squared) FL/FL guided lumbar puncture LP IMPRESSION: Lumbar puncture performed at the L4-L5 level without incident.
--- NOTE | ~2021-01-27 | XR_ITS ---
EXAMINATION: XR CHEST CLINICAL INFORMATION: Shortness of breath COMPARISON: Chest x-ray 02/02/2021 TECHNIQUE: Frontal portable view of the chest was obtained. 6:24 PM FINDINGS: No change position of pacemaker leads in right atrium and right ventricle. Heart size is enlarged. There are calcifications of the mitral valve annulus. No acute abnormality. There is no pulmonary vascular congestion. No focal consolidation, no pleural effusion or pneumothorax. XR/XR chest 1V IMPRESSION: No acute abnormality of the chest.
--- NOTE | ~2021-01-27 | US_ITS ---
EXAMINATION: US VENOUS WITH DOPPLER UPPER EXTREMITY, RIGHT CLINICAL INFORMATION: Swelling COMPARISON: Previous exam 01/21/2021 TECHNIQUE: Ultrasound of the upper extremity is performed using compression sonography and color and pulse Doppler flow with assessment of augmentation of flow. There is also imaging and Doppler assessment of the jugular and subclavian veins. Spectral analysis with color-flow imaging is performed. FINDINGS: Exam is limited due to swelling and decreased range of motion. Respiratory variation, normal compression, and augmented flow are noted throughout the upper extremity including the axillary, brachial, cubital, and radial and ulnar veins. There is normal flow in the internal jugular and subclavian veins. There is no visible deep or superficial thrombophlebitis. US/US venous duplex UE RT IMPRESSION: Limited exam due to swelling and decreased range of motion. No DVT seen.
--- NOTE | ~2021-01-27 | XR_ITS ---
EXAMINATION: XR CHEST CLINICAL INFORMATION: Aspiration pneumonia. COMPARISON: Chest 01/30/2021 TECHNIQUE: Frontal view of the chest was obtained. FINDINGS: The lungs are hypoexpanded but clear of acute process. The heart size is normal. Pulmonary vascularity is bilaterally prominent. There are dual pacer electrodes in right atrium and right ventricle. XR/XR chest 1V IMPRESSION: Mild prominence of pulmonary vascularity question early mild congestion. Similar findings were questioned on previous study 01/30/2021. The lungs are hypoexpanded but clear
--- NOTE | ~2021-01-27 | XR_ITS ---
EXAMINATION: XR SHOULDER, RIGHT CLINICAL INFORMATION: Pain COMPARISON: Previous x-ray 01/21/2021 TECHNIQUE: Three views of the right shoulder. FINDINGS: Bone alignment is normal. There is slight cortical irregularity of the inferior margin of the scapula near the glenoid questionable for a fracture. There is arthritis at the acromioclavicular joint. The glenohumeral joint is normal. Soft tissues are normal. XR/XR shoulder RT min 2V IMPRESSION: Cortical irregularity of the inferior scapula near the glenoid questionable for fracture. This could be further evaluated with CT scan if clinically indicated. Arthritis at the acromioclavicular joint.
--- NOTE | ~2021-01-27 | CT_ITS ---
EXAMINATION: CT ABDOMEN AND PELVIS WITHOUT CONTRAST CLINICAL INFORMATION: Abdominal discomfort, diarrhea COMPARISON: 05/08/2008 TECHNIQUE: Multidetector volumetric imaging was performed from the superior aspect of the liver through the pubic symphysis. Sagittal and coronal reformatted images were obtained on the technologist's workstation. This CT examination was performed using dose optimization techniques as appropriate, variously including the following: *Automated exposure control *Adjustment of mA and/or kV according to patient size (this includes techniques or standardized protocols for targeted exams where dose is matched to indication/reason for exam; i.e. extremities or head) *Use of iterative reconstruction technique DLP: 1674 mGy-cm FINDINGS: Partially limited assessment due to motion artifact. LUNG BASES: The visualized lung bases are unremarkable. Coronary artery calcifications are present. LIVER, GALLBLADDER, AND BILIARY TREE: The liver is normal in size, shape, and attenuation. No focal hepatic lesion or biliary ductal dilatation is identified. Slightly hyperdense material noted in the gallbladder. PANCREAS: There is partial fatty atrophy of the pancreas. SPLEEN: Unremarkable. ADRENAL GLANDS: Unremarkable. KIDNEYS AND URETERS: The [place] kidneys are atrophic. Small left renal hypodensities are favored to represent cysts. Right pelvic transplant kidney is present without hydronephrosis. BLADDER: Unremarkable. GASTROINTESTINAL TRACT: No evidence of bowel obstruction. Small amount of fluid noted in the colon, which can be seen with diarrhea. No significant colonic wall thickening is seen, though some segments are collapsed which limits evaluation for wall thickening. The appendix is unremarkable. No free fluid or free air is seen. ABDOMINAL WALL: Fat-containing left inguinal hernia noted. LYMPH NODES: Normal. VASCULAR: There is extensive vascular calcification. PELVIC VISCERA: Unremarkable. OSSEOUS STRUCTURES: Degenerative changes are noted in the spine. CT/CT abdomen pelvis wo con IMPRESSION: 1. No acute bowel abnormality identified. 2. Slightly hyperdense material in the gallbladder could reflect sludge or gallstones. This would be better assessed with ultrasound.
[2021-01-27 21:44] VITALS: BP 120/76; PULSE 78; RESP 16; TEMP 36.6; O2SAT 95; BMI 25.8
[2021-01-27 21:54] VITALS: BP 130/71; PULSE 68; RESP 16; TEMP 36.6; O2SAT 95
--- NOTE | 2021-01-27 22:07 | ECG_ITS ---
Test Reason : GI BLEED Blood Pressure : / mmHG Vent. Rate : 071 BPM Atrial Rate : 202 BPM P-R Int : 000 ms QRS Dur : 184 ms QT Int : 468 ms P-R-T Axes : 000 -77 083 degrees QTc Int : 508 ms Atrial fibrillation with frequent ventricular-paced complexes Right bundle branch block Left anterior fascicular block Bifascicular block Septal infarct , age undetermined Abnormal ECG When compared with ECG of 14-JAN-2021 10:40, Vent. rate has increased BY 2 BPM Referred By: Ana Hill Electronically Signed By:SCHUYLER MANCILLA MD
--- NOTE | 2021-01-27 22:20 | ED.GIBLEED ---
HPI - GI Bleed General Chief complaint: GI Bleed Stated complaint: DIARRHEA,BLOODY STOOLS X 3 WEEKS Time Seen by Provider: 01/27/21 22:07 Source: patient Mode of arrival: EMS History of Present Illness HPI Narrative: 60-year-old male presents with diarrhea for the past 2 days, approximately 8 episodes, and then noted bright red blood in the diarrhea today. Patient denies any pain on defecation or abdominal pain and there is no associated fever, chills, nausea, vomiting, shortness of breath, chest pain/palpitations and he states that the swelling in his bilateral lower extremities has improved after being placed on Lasix. His history is significant for having been treated for a pneumonia as well as status post PCI. Related Data Home Medications Medication Instructions Recorded Confirmed amiodarone 200 mg PO DAILY@0601/28/21 01/28/21 amiodarone 400 mg PO BID 01/28/21 01/28/21 aripiprazole [Abilify] 30 mg PO DAILY 01/28/21 01/28/21 cyclobenzaprine [Flexeril] 10 mg PO 01/28/21 divalproex [Depakote] 1,000 mg PO DAILY 01/28/21 01/28/21 divalproex [Depakote] 1,000 mg PO DAILY@0630 01/28/21 01/28/21 furosemide [Lasix] 40 mg PO BID 01/28/21 01/28/21 hydralazine [Apresoline] 10 mg PO BID 01/28/21 01/28/21 isosorbide dinitrate 5 mg PO BID 01/28/21 01/28/21 magnesium oxide 400 mg PO BID 01/28/21 01/28/21 metoprolol succinate [Toprol XL] 50 mg PO BID 01/28/21 01/28/21 omeprazole [Prilosec] 20 mg PO DAILY 01/28/21 01/28/21 prednisone 10 mg PO DAILY 01/28/21 01/28/21 rivaroxaban [Xarelto] 15 mg PO QPM 01/28/21 01/28/21 sod phos di, mono-K phos mono 1 tab PO DAILY 01/28/21 01/28/21 [Phospha 250 Neutral] Allergies Allergy/AdvReac Type Severity Reaction Status Date / Time indomethacin [Indocin] Allergy Unknown Unknown Verified 01/21/21 09:06 Review of Systems Review of Systems: Pertinent positives and negatives as stated in HPI 10 point review of systems is otherwise negative. [facility] Past Medical History Source: nursing notes reviewed Medical History Acute on chronic systolic heart failure Acute systolic (congestive) heart failure Afib Asthma Atrial fibrillation Atrial fibrillation with rapid ventricular response Bipolar disorder Cellulitis of left foot Congestive heart failure DVT (deep venous thrombosis) Essential hypertension Gout Heart failure with reduced ejection fraction Hip osteoarthritis History of seizures Obesity Pacemaker PAF (paroxysmal atrial fibrillation) Polysubstance abuse Renal failure, acute on chronic Renal transplant recipient Second degree heart block Subdural hematoma Syncope Thrombocytopenia Tobacco abuse Unilateral primary osteoarthritis, left knee Urinary bladder cancer Surgical History Abscess of arm, left H/O cardiac radiofrequency ablation History of cardiac catheterization History of removal of cyst History of removal of cyst Kidney replaced by transplant Kidney transplant recipient Family History Family History Father Prostate cancer Mother No problems noted. Brother Cancer Social History Social History Household Members: None Housing: Other Housing Other:: Rehab facility Do you presently have visiting nurse or other home services: Yes Alcohol intake: never Smoking Status: Current every day smoker Tobacco Type: Cigarette Packs Per Day: 1 Cigarettes Per Day: 3 Second Hand Smoke Exposure: No Use of substances other than those prescribed or required for medical reasons: No Substance Use Type: Crack/Cocaine Advance Directives: No Advance Directives Information Provided: Yes Advance Directives Date on File: 12/25/20 service: No Current occupational status: unemployed Physical Exam Vital Signs: Vital Signs: Last Vital Signs Temp 98 F 01/27/21 21:54 Pulse 68 01/27/21 21:54 Resp 16 01/27/21 21:54 BP 130/71 01/27/21 21:54 Pulse Ox 95 01/27/21 21:54 Body Mass Index 25.8 VITAL SIGNS: Reviewed. GENERAL: Well developed, well nourished, in no acute distress. HEAD: Normocephalic/atraumatic EYES: PERRLA, EOMI EARS: Ext canals without abnormality NOSE: Nares patent bilateral OROPHARYNX: no oral lesions noted, posterior pharynx clear, dry mucosa NECK: Supple, no adenopathy LUNGS: Normal breath sounds. No adventitious sounds or accessory muscle use. SpO2<95> CARDIOVASCULAR: Regular rate and rhythm without noted murmurs, no JVD but bilateral 2+ pitting edema ABDOMEN: Soft, non-tender, non-distended with bowel sounds. KIMMY: deferred SKIN: Inspection of the skin reveals no rashes NEUROLOGIC: Alert and oriented x 4. Course Course Course Narrative: 60-year-old male with history and clinical presentation suggestive of possible C diff +/- colitis given patient's recent hospitalization and treatment for pneumonia and subsequent development of multiple episodes of diarrhea. Review of all investigations significant for C diff positive, ANA, however CT findings not supportive of a colitis. This case was discussed with the inpatient hospitalist team who agreed for admission. MDM - GI Bleed Lab Data Result diagrams: 01/27/21 22:34 01/27/21 22:34 Labs: Lab Results 01/27/21 01/27/21 01/27/21 Range/Units 22:34 22:34 22:34 WBC 4.0 L (4.8-10.8) X10*3/uL RBC 4.12 L (4.60-5.80) X10*6/uL Hgb 11.9 L (14.0-18.0) g/dl Hct 38.2 L (42-52) % MCV 92.7 (80-98) fL MCH 28.9 (27.0-33.0) pg MCHC 31.2 (31.0-36.0) g/dl RDW 15.9 (11.0-16.0) % Plt Count 82 L (160-400) X10*3/uL MPV 9.8 (9.4-12.4) fL Immature Gran % (Auto) 0.8 H (0.0-0.4) % Neut % (Auto) 71.8 (45-73) % Lymph % (Auto) 15.8 L (20-40) % [place] % (Auto) 11.3 H (2-11) % Eos % (Auto) 0.0 (0-4) % Baso % (Auto) 0.3 (0-2) % Lymph # (Auto) 0.6 L (1.2-4.9) X10*3/uL [place] # (Auto) 0.5 (0.1-1.2) X10*3/uL Eos # (Auto) 0.0 (0.0-0.4) X10*3/uL Baso # (Auto) 0.0 (0.0-0.2) X10*3/uL Abs Immat Gran (auto) 0.03 (0.00-0.03) X10*3/uL Absolute Neuts (auto) 2.9 (2.0-8.3) X10*3/uL Absolute Nucleated RBC 0.000 (0.0-0.012) X10*3/uL Nucleated RBC % (auto) 0.0 (0.0-0.2) /100WBC Smear Tech's Comments VERIFIED PT 16.3 H (10.8-13.0) SEC INR 1.4 H (0.9-1.1) Sodium 141 (135-145) mmol/L Potassium 4.6 (3.3-5.1) mmol/L Chloride 104 (96-108) mmol/L Carbon Dioxide 28 (22-29) mmol/L Anion Gap 14 (12-20) BUN 66 H (9-16) mg/dL Creatinine 3.14 H (0.5-1.4) mg/dL Estim Creat Clear Calc 25.1 Estimated GFR 20 Random Glucose 131 H D (60-115) mg/dL Calcium 9.2 (8.4-10.2) mg/dL Magnesium (1.6-2.6) mg/dL Total Bilirubin 0.7 (0.0-1.0) mg/dL AST 11 (5-37) U/L ALT 11 (0-40) U/L Alkaline Phosphatase 58 (39-117) U/L Total Protein 5.4 L (6.5-8.0) g/dL Albumin 3.0 L (3.5-5.0) g/dL Lipase (8-78) U/L Stool Occult Blood (NEGATIVE) C. difficile Toxin A&B (Negative) C. difficile Antigen (Negative) C. difficile Interpret Blood Type Antibody Screen 01/27/21 01/27/21 01/27/21 Range/Units 22:34 22:34 22:34 WBC (4.8-10.8) X10*3/uL RBC (4.60-5.80) X10*6/uL Hgb (14.0-18.0) g/dl Hct (42-52) % MCV (80-98) fL MCH (27.0-33.0) pg MCHC (31.0-36.0) g/dl RDW (11.0-16.0) % Plt Count (160-400) X10*3/uL MPV (9.4-12.4) fL Immature Gran % (Auto) (0.0-0.4) % Neut % (Auto) (45-73) % Lymph % (Auto) (20-40) % [place] % (Auto) (2-11) % Eos % (Auto) (0-4) % Baso % (Auto) (0-2) % Lymph # (Auto) (1.2-4.9) X10*3/uL [place] # (Auto) (0.1-1.2) X10*3/uL Eos # (Auto) (0.0-0.4) X10*3/uL Baso # (Auto) (0.0-0.2) X10*3/uL Abs Immat Gran (auto) (0.00-0.03) X10*3/uL Absolute Neuts (auto) (2.0-8.3) X10*3/uL Absolute Nucleated RBC (0.0-0.012) X10*3/uL Nucleated RBC % (auto) (0.0-0.2) /100WBC Smear Tech's Comments PT (10.8-13.0) SEC INR (0.9-1.1) Sodium (135-145) mmol/L Potassium (3.3-5.1) mmol/L Chloride (96-108) mmol/L Carbon Dioxide (22-29) mmol/L Anion Gap (12-20) BUN (9-16) mg/dL Creatinine (0.5-1.4) mg/dL Estim Creat Clear Calc Estimated GFR Random Glucose (60-115) mg/dL Calcium (8.4-10.2) mg/dL Magnesium 1.6 (1.6-2.6) mg/dL Total Bilirubin (0.0-1.0) mg/dL AST (5-37) U/L ALT (0-40) U/L Alkaline Phosphatase (39-117) U/L Total Protein (6.5-8.0) g/dL Albumin (3.5-5.0) g/dL Lipase 13 (8-78) U/L Stool Occult Blood (NEGATIVE) C. difficile Toxin A&B (Negative) C. difficile Antigen (Negative) C. difficile Interpret Blood Type O Positive Antibody Screen NEGATIVE 01/27/21 01/27/21 Range/Units 22:43 22:43 WBC (4.8-10.8) X10*3/uL RBC (4.60-5.80) X10*6/uL Hgb (14.0-18.0) g/dl Hct (42-52) % MCV (80-98) fL MCH (27.0-33.0) pg MCHC (31.0-36.0) g/dl RDW (11.0-16.0) % Plt Count (160-400) X10*3/uL MPV (9.4-12.4) fL Immature Gran % (Auto) (0.0-0.4) % Neut % (Auto) (45-73) % Lymph % (Auto) (20-40) % [place] % (Auto) (2-11) % Eos % (Auto) (0-4) % Baso % (Auto) (0-2) % Lymph # (Auto) (1.2-4.9) X10*3/uL [place] # (Auto) (0.1-1.2) X10*3/uL Eos # (Auto) (0.0-0.4) X10*3/uL Baso # (Auto) (0.0-0.2) X10*3/uL Abs Immat Gran (auto) (0.00-0.03) X10*3/uL Absolute Neuts (auto) (2.0-8.3) X10*3/uL Absolute Nucleated RBC (0.0-0.012) X10*3/uL Nucleated RBC % (auto) (0.0-0.2) /100WBC Smear Tech's Comments PT (10.8-13.0) SEC INR (0.9-1.1) Sodium (135-145) mmol/L Potassium (3.3-5.1) mmol/L Chloride (96-108) mmol/L Carbon Dioxide (22-29) mmol/L Anion Gap (12-20) BUN (9-16) mg/dL Creatinine (0.5-1.4) mg/dL Estim Creat Clear Calc Estimated GFR Random Glucose (60-115) mg/dL Calcium (8.4-10.2) mg/dL Magnesium (1.6-2.6) mg/dL Total Bilirubin (0.0-1.0) mg/dL AST (5-37) U/L ALT (0-40) U/L Alkaline Phosphatase (39-117) U/L Total Protein (6.5-8.0) g/dL Albumin (3.5-5.0) g/dL Lipase (8-78) U/L Stool Occult Blood POSITIVE (NEGATIVE) C. difficile Toxin A&B Positive A (Negative) C. difficile Antigen Positive A (Negative) C. difficile Interpret SEE NOTE Blood Type Antibody Screen ECG Data Attestation: I personally reviewed and interpreted this ECG as follows: Prior ECG tracings: available for review (01/14/2021 no acute changes on comparison) Interpretation: Atrial fibrillation, HR-71, no evidence of acute ischemia Discharge Plan Discharge Clinical Impression: C. difficile diarrhea, ANA (acute kidney injury), Dehydration Patient Disposition: Admitted As Inpatient
[2021-01-27] MEDS: 0.9 % Sodium Chloride 1,000 ML 999 ML IV (22:39)
[2021-01-27 22:45] LABS: Basophils Percent Auto 0.3 % (0-2); Hematocrit 38.2 % (42-52); Hemoglobin 11.9 g/dl (14.0-18.0); Imm Gran Abs Auto 0.03 X10*3/uL (0.00-0.03); Imm Gran Pct Auto 0.8 % (0.0-0.4); Lymphocytes Absolute Auto 0.6 X10*3/uL (1.2-4.9); Lymphocytes Percent Auto 15.8 % (20-40); MANUAL DIFF FLAG SCAN; Mean Corpuscular HGB Conc 31.2 g/dl (31.0-36.0); Mean Corpuscular Hemoglobin 28.9 pg (27.0-33.0); Mean Corpuscular Volume 92.7 fL (80-98); Mean Platelet Volume 9.8 fL (9.4-12.4); Monocytes Absolute Auto 0.5 X10*3/uL (0.1-1.2); Monocytes Percent Auto 11.3 % (2-11); Neutrophils Absolute Auto 2.9 X10*3/uL (2.0-8.3); Neutrophils Percent Auto 71.8 % (45-73); Red Blood Count 4.12 X10*6/uL (4.60-5.80); Red Cell Distribution Width 15.9 % (11.0-16.0); SCAN SMEAR FLAG 1
[2021-01-27 22:47] LABS: Platelet Count 82 X10*3/uL (160-400)
[2021-01-27 22:50] LABS: INTERNATIONAL NORM RATIO 1.4 (0.9-1.1); Prothrombin Time 16.3 SEC (10.8-13.0)
[2021-01-27 23:06] LABS: SLIDE REVIEW VERIFIED
[2021-01-27 23:12] LABS: Lipase 13 U/L (8-78); Magnesium 1.6 mg/dL (1.6-2.6)
[2021-01-27 23:13] LABS: Alanine Aminotransferase 11 U/L (0-40); Alkaline Phosphatase 58 U/L (39-117); Anion Gap 14 (12-20); Aspartate Amino Transferase 11 U/L (5-37); Bilirubin Total 0.7 mg/dL (0.0-1.0); Blood Urea Nitrogen 66 mg/dL (9-16); Calcium 9.2 mg/dL (8.4-10.2); Carbon Dioxide 28 mmol/L (22-29); Chloride 104 mmol/L (96-108); Creatinine Clr Calc Pharmacy 25.1; Estimated Glomerular Filt Rate 20; Glucose Random 131 mg/dL (60-115); Potassium 4.6 mmol/L (3.3-5.1); Sodium 141 mmol/L (135-145); Total Protein 5.4 g/dL (6.5-8.0)
--- NOTE | 2021-01-27 23:21 | PC.NURSE ---
Called lab to confirm they can test obs off of sample pending
[2021-01-27 23:30] LABS: OBS Int Ctl Valid YES; OBS1 POSITIVE (NEGATIVE)
[2021-01-27 23:40] LABS: CDIFF Ag Positive (Negative); CDIFF Internal ctrl Dots and bkg OK (V); CDiff Toxin Positive (Negative)
[2021-01-28] VITALS (9 sets, daily range): BP systolic 106–191; BP diastolic 52–104; PULSE 55–100; RESP 17–20; TEMP 36.3–37.1; O2SAT 95–100
[2021-01-28 00:46] LABS: COVID-19 Test Negative (Negative)
[2021-01-28 01:52] LABS: B Type Natriuretic Peptide 1302 pg/mL (<100)
[2021-01-28] MEDS: 0.9 % Sodium Chloride 1,000 ML 999 ML IV (02:25)
[2021-01-28] MEDS: vancomycin HCL 125 MG CAPSULE PO ×4 (02:25→21:43)
--- NOTE | 2021-01-28 03:51 | PC.NURSE ---
report given, pt ready for transport to floor.
[2021-01-28] MEDS: Lactated Ringers 1,000 ML 100 ML IVCONT (04:59)
[2021-01-28 05:11] LABS: Glucose Urine UA NEG (NEG); Leukocyte Esterase Urine NEG (NEG); Nitrite Urine NEG (NEG); Urine Blood NEG (NEG); Urine Ketones NEG (NEG); Urine Protein TRACE MG/DL (NEG-TRACE)
[2021-01-28 05:12] LABS: Appearance Urine CLEAR; Color Urine YELLOW
[2021-01-28] MEDS: Furosemide 40 MG/4 ML VIAL IVPUSH ×2 (06:46→17:58)
--- NOTE | 2021-01-28 07:27 | P.HPHOSP_ITS ---
History of Present Illness Date of Service: 01/28/21 Chief Complaint: Bloody bowel movement This is a 60-year-old male with past medical history of AFib, systolic CHF, asthma, HTN, bipolar disorder, polysubstance abuse, the ED, seizure disorder, kidney transplant, second-degree heart block status post pacemaker, cyst anemia, CKD who presents to the hospital with complaints of diarrhea as well as bloody bowel movements. Patient reports that he had about 8 episodes of diarrhea the day prior to presentation and and 2 episodes of bloody diarrhea today. Patient denies any abdominal pain, no nausea or vomiting, no headache, he has some dizziness with no change in vision, no chest pain, no palpitations. No urinary symptoms. He reports lower extremity edema that restarted about few days ago, no orthopnea or PND. No dyspnea. Of note pt was admitted in early January and tx for Afib, CHF and ANA. Had cardioversion on 01/14 for hx of A fib, On Arrival to the ED No significant abnormal vitals Door significant for WBC 4.0, hemoglobin of 11.9 which is around his baseline, PT of 16.3, INR of 1.4, BUN of 66, creatinine of 3.14 (54 and 2.3 on January 15) BNP of 1302 ( previously 1192 on 01/12), C diff toxins and antigen positive CT abdomen shows no acute bowel abnormality, slightly hyperdense gallbladder reflect sludge or gallstone, US of the abdomen shows normal gallbaldder PMH as below and confirmed with pt Review of Systems Review of Systems: Yes all other systems are reviewed and are negative [facility] Medical History Acute on chronic systolic heart failure Acute systolic (congestive) heart failure Afib Asthma Atrial fibrillation Atrial fibrillation with rapid ventricular response Bipolar disorder Cellulitis of left foot Congestive heart failure DVT (deep venous thrombosis) Essential hypertension Gout Heart failure with reduced ejection fraction Hip osteoarthritis History of seizures Obesity Pacemaker PAF (paroxysmal atrial fibrillation) Polysubstance abuse Renal failure, acute on chronic Renal transplant recipient Second degree heart block Subdural hematoma Syncope Thrombocytopenia Tobacco abuse Unilateral primary osteoarthritis, left knee Urinary bladder cancer Family History Father Prostate cancer Mother No problems noted. Brother Cancer Surgical History Abscess of arm, left H/O cardiac radiofrequency ablation History of cardiac catheterization History of removal of cyst History of removal of cyst Kidney replaced by transplant Kidney transplant recipient Social History Household Members: Other Housing: Other Housing Other:: Rehab facility Do you presently have visiting nurse or other home services: No (Nurses at [facility]) Alcohol intake: never Smoking Status: Current every day smoker Tobacco Type: Cigarette Packs Per Day: 1 Cigarettes Per Day: 3 Patient Interested in Nicotine Replacement: Yes Second Hand Smoke Exposure: Yes Use of substances other than those prescribed or required for medical reasons: Yes Substance Use Type: Crack/Cocaine Substance Use Frequency: Monthly Currently Displaying Signs/Symptoms of Drug Intoxication Withdrawal: No Any prior treatment program specific to substance use: No Have you been hit, kicked, punched, or otherwise hurt by someone within the past year? If so, by whom?: No Do you feel safe in your current relationship?: No Current Relationship Is there a partner from a previous relationship who is making you feel unsafe now?: No Are you made to feel afraid or neglected: No Advance Directives: No Advance Directives Information Provided: Yes Advance Directives Date on File: 12/25/20 Do you have thoughts of harming others: None Do you have a plan to hurt others: No Plan Recently lost weight without trying: No Nutrition Risks: Poor intake 0-25% >4 days service: No Current occupational status: unemployed Meds Allergies Allergy/AdvReac Type Severity Reaction Status Date / Time indomethacin [Indocin] Allergy Unknown Unknown Verified 01/21/21 09:06 Active Medications: Current Medications Generic Name Dose Route Start Last Admin Trade Name Freq PRN Reason Stop Dose Admin Acetaminophen 650 mg 01/28/21 02:46 Acetaminophen 325 Mg Tablet PO Q6H PRN Pain, Mild (Pain Scale 1-3) Docusate Sodium 100 mg 01/28/21 02:46 Docusate Sodium 100 Mg Capsule PO DAILY PRN Constipation Furosemide 40 mg 01/28/21 06:45 01/28/21 06:46 Furosemide 40 Mg/4 Ml Vial IVPUSH 40 mg Q12H YOLANDA Administration Protocol Ondansetron HCl 4 mg 01/28/21 02:46 Ondansetron Hcl 4 Mg/2 Ml Vial IVPUSH Q8H PRN Nausea and Vomiting Sodium Chloride 3 ml 01/28/21 08:00 0.9 % Sodium Chloride Flush 3 Ml Syringe IVFLUSH QSHIFT [facility] Vancomycin HCl 125 mg 01/28/21 01:00 01/28/21 06:46 Vancomycin Hcl 125 Mg Capsule PO 125 mg Q6H [facility] Administration Home Medications Medication Instructions Recorded Confirmed Last Taken Type amiodarone 400 mg PO BID 01/28/21 01/28/21 Unknown History aripiprazole [Abilify] 30 mg PO DAILY 01/28/21 01/28/21 Unknown History divalproex 1 tab PO DAILY 01/28/21 01/28/21 Unknown History divalproex 2 tab PO BEDTIME 01/28/21 01/28/21 Unknown History furosemide [Lasix] 40 mg PO BID 01/28/21 01/28/21 Unknown History hydralazine [Apresoline] 10 mg PO BID 01/28/21 01/28/21 Unknown History isosorbide dinitrate 5 mg PO BID 01/28/21 01/28/21 Unknown History magnesium oxide 400 mg PO BID 01/28/21 01/28/21 Unknown History metoprolol succinate 1 tab PO BID 01/28/21 01/28/21 Unknown History omeprazole [Prilosec] 20 mg PO DAILY 01/28/21 01/28/21 Unknown History prednisone 10 mg PO DAILY 01/28/21 01/28/21 Unknown History rivaroxaban [Xarelto] 15 mg PO QPM 01/28/21 01/28/21 Unknown History sod phos di, mono-K phos mono 1 tab PO DAILY 01/28/21 01/28/21 Unknown History [Phospha 250 Neutral] tacrolimus 2 cap PO BID 01/28/21 Unknown History Physical Exam Vital Signs and Narrative: Vital Signs: Last Vital Signs Temp 98.8 F 01/28/21 04:00 Pulse 83 01/28/21 04:00 Resp 18 01/28/21 04:00 BP 191/104 H 01/28/21 04:00 Pulse Ox 98 01/28/21 04:00 Body Mass Index 25.8 Const: General: cooperative and no acute distress Orientation/consciousness: patient oriented x3 Eyes: General: appearance normal, both eyes and all related structures Resp: Effort & Inspection: normal respiratory effort and able to speak in complete sentences Cardio: Rate: regular rate Rhythm: regular rhythm GI: Palpation (GI): Soft to palpation Auscultation: normal bowel sounds Skin: General skin exam: no rashes or lesions noted Neuro: General: patient oriented x3 Cognition (Neuro): normal cognition Extrem: General: Yes normal to inspection and Yes no pedal edema Results Labs CBC and Chem 7: 01/27/21 22:34 01/27/21 22:34 Labs: Laboratory Results - last 24 hr 01/27/21 01/27/21 01/27/21 22:34 22:34 22:34 MCV 92.7 MCH 28.9 MCHC 31.2 RDW 15.9 Plt Count 82 L MPV 9.8 Immature Gran % (Auto) 0.8 H Neut % (Auto) 71.8 Lymph % (Auto) 15.8 L [place] % (Auto) 11.3 H Eos % (Auto) 0.0 Baso % (Auto) 0.3 Lymph # (Auto) 0.6 L [place] # (Auto) 0.5 Eos # (Auto) 0.0 Baso # (Auto) 0.0 Abs Immat Gran (auto) 0.03 Absolute Neuts (auto) 2.9 Absolute Nucleated RBC 0.000 Nucleated RBC % (auto) 0.0 Smear Tech's Comments VERIFIED PT 16.3 H INR 1.4 H Anion Gap 14 Estim Creat Clear Calc 25.1 Estimated GFR 20 Random Glucose 131 H D Calcium 9.2 Magnesium Total Bilirubin 0.7 AST 11 ALT 11 Alkaline Phosphatase 58 B-Natriuretic Peptide Total Protein 5.4 L Albumin 3.0 L Lipase Urine Color Urine Appearance Urine pH Ur Specific [place] Urine Protein Urine Glucose (UA) Urine Ketones Urine Blood Urine Nitrite Ur Leukocyte Esterase Stool Occult Blood C. difficile Toxin A&B C. difficile Antigen C. difficile Interpret COVID-19 ([facility]) COVID-19 Clin Com Blood Type Antibody Screen 01/27/21 01/27/21 01/27/21 22:34 22:34 22:34 MCV MCH MCHC RDW Plt Count MPV Immature Gran % (Auto) Neut % (Auto) Lymph % (Auto) [place] % (Auto) Eos % (Auto) Baso % (Auto) Lymph # (Auto) [place] # (Auto) Eos # (Auto) Baso # (Auto) Abs Immat Gran (auto) Absolute Neuts (auto) Absolute Nucleated RBC Nucleated RBC % (auto) Smear Tech's Comments PT INR Anion Gap Estim Creat Clear Calc Estimated GFR Random Glucose Calcium Magnesium 1.6 Total Bilirubin AST ALT Alkaline Phosphatase B-Natriuretic Peptide Total Protein Albumin Lipase 13 Urine Color Urine Appearance Urine pH Ur Specific [place] Urine Protein Urine Glucose (UA) Urine Ketones Urine Blood Urine Nitrite Ur Leukocyte Esterase Stool Occult Blood C. difficile Toxin A&B C. difficile Antigen C. difficile Interpret COVID-19 ([facility]) COVID-19 Clin Com Blood Type O Positive Antibody Screen NEGATIVE 01/27/21 01/27/21 01/27/21 22:34 22:43 22:43 MCV MCH MCHC RDW Plt Count MPV Immature Gran % (Auto) Neut % (Auto) Lymph % (Auto) [place] % (Auto) Eos % (Auto) Baso % (Auto) Lymph # (Auto) [place] # (Auto) Eos # (Auto) Baso # (Auto) Abs Immat Gran (auto) Absolute Neuts (auto) Absolute Nucleated RBC Nucleated RBC % (auto) Smear Tech's Comments PT INR Anion Gap Estim Creat Clear Calc Estimated GFR Random Glucose Calcium Magnesium Total Bilirubin AST ALT Alkaline Phosphatase B-Natriuretic Peptide 1302 H Total Protein Albumin Lipase Urine Color Urine Appearance Urine pH Ur Specific [place] Urine Protein Urine Glucose (UA) Urine Ketones Urine Blood Urine Nitrite Ur Leukocyte Esterase Stool Occult Blood POSITIVE C. difficile Toxin A&B Positive A C. difficile Antigen Positive A C. difficile Interpret SEE NOTE COVID-19 ([facility]) COVID-19 Clin Com Blood Type Antibody Screen 01/28/21 01/28/21 00:17 05:01 MCV MCH MCHC RDW Plt Count MPV Immature Gran % (Auto) Neut % (Auto) Lymph % (Auto) [place] % (Auto) Eos % (Auto) Baso % (Auto) Lymph # (Auto) [place] # (Auto) Eos # (Auto) Baso # (Auto) Abs Immat Gran (auto) Absolute Neuts (auto) Absolute Nucleated RBC Nucleated RBC % (auto) Smear Tech's Comments PT INR Anion Gap Estim Creat Clear Calc Estimated GFR Random Glucose Calcium Magnesium Total Bilirubin AST ALT Alkaline Phosphatase B-Natriuretic Peptide Total Protein Albumin Lipase Urine Color YELLOW Urine Appearance CLEAR Urine pH 6.0 Ur Specific [place] 1.020 Urine Protein TRACE Urine Glucose (UA) NEG Urine Ketones NEG Urine Blood NEG Urine Nitrite NEG Ur Leukocyte Esterase NEG Stool Occult Blood C. difficile Toxin A&B C. difficile Antigen C. difficile Interpret COVID-19 ([facility]) Negative COVID-19 Clin Com See Note Blood Type Antibody Screen Imaging Radiologist's Impressions: Impressions Abdomen/Pelvis CT 01/27/21 23:49 IMPRESSION: 1. No acute bowel abnormality identified. 2. Slightly hyperdense material in the gallbladder could reflect sludge or gallstones. This would be better assessed with ultrasound. Abdomen Ultrasound 01/28/21 01:15 IMPRESSION: Normal sonographic appearance of the gallbladder. No acute findings identified. Assessment and Plan (1) C. difficile diarrhea: Status: Acute (2) GI bleed: Status: Acute (3) Acute kidney injury superimposed on CKD: Status: Acute (4) Diarrhea: Status: Acute (5) CHF exacerbation: Status: Acute this is a 60 yo m extensive hx as mentioned above who presents to the hospital with complaints of diarrhea as well as gi bleed # Diarrhea - 2/2 C diff - pt with recent hospital admission - no recent abx use - will start him on PO vanco # GI bleed - occult stool blood positive - possible 2/2 c.diff - on anticoagulation - hgb stable - will keep NPO - consult GI - start PPI IV BID until evaluated by GI # CHF exacerbation - has lower extremity swelling - elevated BNP more than recent admission whcih was for CHF - will start him on iv lasix ( of note pt did receive iv fluids for ANA in the ED- discontinued) - Echo from november showed EF of 15-20% - consult cardiology # ANA on CKD - most likely pre-renal in the setting of HF - treatment of chf as above - Follow bmp # Afib - underwent cardioversion on 01/14 - will hold ac given gi bleed - continue amiodarone and metoprolol # hx of DVT - Hold Xarelto - SCds # HTN - Stable - continue home regimen DVT ppx: SCDs
[2021-01-28] MEDS: Acetaminophen 325 MG TABLET 650 MG PO (08:35)
[2021-01-28] MEDS: Pantoprazole Sodium 40 MG/10 ML VIAL IVPUSH (08:35)
[2021-01-28] MEDS: 0.9 % Sodium Chloride Flush 3 ML SYRINGE IVFLUSH ×2 (08:35→17:58)
[2021-01-28 09:08] LABS: Anion Gap 17 (12-20); Blood Urea Nitrogen 62 mg/dL (9-16); Calcium 9.2 mg/dL (8.4-10.2); Carbon Dioxide 26 mmol/L (22-29); Chloride 105 mmol/L (96-108); Estimated Glomerular Filt Rate 24; Glucose Random 89 mg/dL (60-115); Potassium 4.7 mmol/L (3.3-5.1); Sodium 143 mmol/L (135-145)
--- NOTE | 2021-01-28 09:31 | P.CDIC_ITS ---
CDI Concurrent Query Service Date: 01/29/21 Documentation Clarification: Please clarify if you are treating a proba ble/suspected/likely or confirmed: CKD, please specify stage 1 5 ESRD Provider Response: CKD Stage 4 PLEASE DO NOT DELETE/MODIFY EXISTING CONTENT Additional information is needed in order to code to the highest accuracy and appropriate Severity of Illness (SOI). Please clarify the information noted below in your progress notes and discharge summary. Risk Factors/Clinical Indicators/Treatments 60 year old male admitted with C Difficile Diarrhea, Acute GI Bleed, ANA on CKD, Acute Exacerbation CHF PMH: CKD, Kidney transplant BUN 66 Creatinine 3.14 CDS: Marly Abdul RN Contact Number: [phone] Please Review the information above and exercise your independent professional judgment in responding to the query. If you concur, pleas document in the PROGRESS NOTES and DISCHARGE SUMMARY. If you do not agree with the query, please document in the query above. THIS QUERY IS PART OF THE PERMANENT MEDICAL RECORD
--- NOTE | 2021-01-28 10:35 | PM.CNNEP ---
History of Present Illness Reason for Consult Consult date: 01/28/21 Reason for consult: ANA in Renal transplant Chief Complaint Chief complaint: C Diff, GI Bleed History of Present Illness Narrative: Deshaun is a renal transplant patient with multiple medical issues presented to hospital with diarrhea and blood bowel movements. He also has been having pedal edema. He denies nausea, vomiting, chest pain , PND or orthopnea. He has not had any new medications. His serum creatinine has been higher than his baseline. He was admitted for further management. Nephrology has been consulted to assit in his clinical care Review of Systems Review of Systems Yes all other systems are reviewed and are negative PMF Past Medical History Medical History Acute on chronic systolic heart failure Acute systolic (congestive) heart failure Afib Asthma Atrial fibrillation Atrial fibrillation with rapid ventricular response Bipolar disorder Cellulitis of left foot Congestive heart failure DVT (deep venous thrombosis) Essential hypertension Gout Heart failure with reduced ejection fraction Hip osteoarthritis History of seizures Obesity Pacemaker PAF (paroxysmal atrial fibrillation) Polysubstance abuse Renal failure, acute on chronic Renal transplant recipient Second degree heart block Subdural hematoma Syncope Thrombocytopenia Tobacco abuse Unilateral primary osteoarthritis, left knee Urinary bladder cancer Family History Family History Father Prostate cancer Mother No problems noted. Brother Cancer Surgical History Surgical History Abscess of arm, left H/O cardiac radiofrequency ablation History of cardiac catheterization History of removal of cyst History of removal of cyst Kidney replaced by transplant Kidney transplant recipient Social History Social History Household Members: Other Housing: Other Housing Other:: Rehab facility Do you presently have visiting nurse or other home services: No (Nurses at snf) Alcohol intake: never Smoking Status: Current every day smoker Tobacco Type: Cigarette Packs Per Day: 1 Cigarettes Per Day: 3 Patient Interested in Nicotine Replacement: Yes Second Hand Smoke Exposure: Yes Use of substances other than those prescribed or required for medical reasons: Yes Substance Use Type: Crack/Cocaine Substance Use Frequency: Monthly Currently Displaying Signs/Symptoms of Drug Intoxication Withdrawal: No Any prior treatment program specific to substance use: No Have you been hit, kicked, punched, or otherwise hurt by someone within the past year? If so, by whom?: No Do you feel safe in your current relationship?: No Current Relationship Is there a partner from a previous relationship who is making you feel unsafe now?: No Are you made to feel afraid or neglected: No Advance Directives: No Advance Directives Information Provided: Yes Advance Directives Date on File: 12/25/20 Do you have thoughts of harming others: None Do you have a plan to hurt others: No Plan Recently lost weight without trying: No Nutrition Risks: Poor intake 0-25% >4 days service: No Current occupational status: unemployed Meds Allergies Allergy/AdvReac Type Severity Reaction Status Date / Time indomethacin [Indocin] Allergy Unknown Unknown Verified 01/21/21 09:06 Active Medications: Current Medications Generic Name Dose Route Start Last Admin Trade Name Freq PRN Reason Stop Dose Admin Acetaminophen 650 mg 01/28/21 02:46 01/28/21 08:35 Acetaminophen 325 Mg Tablet PO 650 mg Q6H PRN Administration Pain, Mild (Pain Scale 1-3) Amiodarone HCl 200 mg 01/30/21 09:00 Amiodarone Hcl 200 Mg Tablet PO DAILY [facility] Amiodarone HCl 400 mg 01/28/21 10:30 Amiodarone Hcl 200 Mg Tablet PO 01/30/21 07:00 BID [facility] Aripiprazole 30 mg 01/28/21 10:15 Aripiprazole 30 Mg Tablet PO DAILY [facility] Divalproex Sodium 500 mg 01/28/21 10:15 Divalproex Sodium Er 500 Mg Tab.Er.24h PO DAILY [facility] Divalproex Sodium 1,000 mg 01/28/21 21:00 Divalproex Sodium Er 500 Mg Tab.Er.24h PO BEDTIME [facility] Docusate Sodium 100 mg 01/28/21 02:46 Docusate Sodium 100 Mg Capsule PO DAILY PRN Constipation Furosemide 40 mg 01/28/21 06:45 01/28/21 06:46 Furosemide 40 Mg/4 Ml Vial IVPUSH 40 mg Q12H YOLANDA Administration Protocol Hydralazine HCl 10 mg 01/28/21 21:00 Hydralazine Hcl 10 Mg Tablet PO BID [facility] Protocol Isosorbide Dinitrate 5 mg 01/28/21 10:20 Isosorbide Dinitrate 5 Mg Tablet PO BID [facility] Protocol Magnesium Oxide 400 mg 01/28/21 21:00 Magnesium Oxide 400 Mg Tablet PO BID [facility] Metoprolol Succinate 50 mg 01/28/21 10:20 Metoprolol Succinate Er 50 Mg Tab.Er.24h PO BID [facility] Protocol Non-Formulary Medication 1 tab 01/28/21 10:30 Sod Phos Di, Marshall-K Phos Marshall [Phospha 250 Neutral] PO DAILY [facility] Ondansetron HCl 4 mg 01/28/21 02:46 Ondansetron Hcl 4 Mg/2 Ml Vial IVPUSH Q8H PRN Nausea and Vomiting Pantoprazole Sodium 40 mg 01/28/21 07:45 01/28/21 08:35 Pantoprazole Sodium 40 Mg/10 Ml Vial IVPUSH 40 mg BID@0630,1630 [facility] Administration Prednisone 10 mg 01/29/21 09:00 Prednisone 10 Mg Tablet PO DAILY [facility] Rivaroxaban 15 mg 01/28/21 18:00 Rivaroxaban 15 Mg Tablet PO DAILY@1800 [facility] Sodium Chloride 3 ml 01/28/21 08:00 01/28/21 08:35 0.9 % Sodium Chloride Flush 3 Ml Syringe IVFLUSH 3 ml QSHIFT [facility]OLANDA Administration Tacrolimus 2 mg 01/28/21 10:20 Tacrolimus 1 Mg Capsule PO BID [facility] Vancomycin HCl 125 mg 01/28/21 01:00 01/28/21 06:46 Vancomycin Hcl 125 Mg Capsule PO 125 mg Q6H [facility]ANDA Administration Home Medications Medication Instructions Recorded Confirmed Last Taken Type amiodarone 1 tab PO QAM 01/28/21 01/28/21 Unknown History amiodarone 400 mg PO BID 01/28/21 01/28/21 Unknown History aripiprazole [Abilify] 30 mg PO DAILY 01/28/21 01/28/21 Unknown History divalproex 1 tab PO DAILY 01/28/21 01/28/21 Unknown History divalproex 2 tab PO BEDTIME 01/28/21 01/28/21 Unknown History furosemide [Lasix] 40 mg PO BID 01/28/21 01/28/21 Unknown History hydralazine [Apresoline] 10 mg PO BID 01/28/21 01/28/21 Unknown History isosorbide dinitrate 5 mg PO BID 01/28/21 01/28/21 Unknown History magnesium oxide 400 mg PO BID 01/28/21 01/28/21 Unknown History metoprolol succinate 1 tab PO BID 01/28/21 01/28/21 Unknown History omeprazole [Prilosec] 20 mg PO DAILY 01/28/21 01/28/21 Unknown History prednisone 10 mg PO DAILY 01/28/21 01/28/21 Unknown History rivaroxaban [Xarelto] 15 mg PO QPM 01/28/21 01/28/21 Unknown History sod phos di, mono-K phos mono 1 tab PO DAILY 01/28/21 01/28/21 Unknown History [Phospha 250 Neutral] tacrolimus 2 cap PO BID 01/28/21 01/28/21 Unknown History Physical Exam Vital Signs: Last Vital Signs Temp 97.3 F 01/28/21 07:30 Pulse 88 01/28/21 07:30 Resp 18 01/28/21 07:30 BP 116/71 01/28/21 07:30 Pulse Ox 100 01/28/21 07:30 Body Mass Index 25.8 Const General: no acute distress Eyes EOM: EOMs intact bilaterally Neck Neck: Yes supple Resp Auscultation: diminished lung sounds Cardio Rate: regular rate GI Palpation (GI): Soft to palpation Neuro General: moves all extremities Results Lab Results Result Diagrams: 01/27/21 22:34 01/28/21 08:03 Lab results: Chemistry 01/27/21 01/28/21 22:34 08:03 Sodium 141 143 Potassium 4.6 4.7 Carbon Dioxide 28 26 BUN 66 H 62 H Creatinine 3.14 H 2.72 H Calcium 9.2 9.2 Hematology 01/27/21 22:34 WBC 4.0 L Hgb 11.9 L Plt Count 82 L Urinalysis 01/28/21 05:01 Urine Color YELLOW Urine Appearance CLEAR Urine pH 6.0 Ur Specific [place] 1.020 Urine Protein TRACE Urine Glucose (UA) NEG Urine Ketones NEG Urine Blood NEG Urine Nitrite NEG Ur Leukocyte Esterase NEG Assessment and Plan (1) Acute kidney injury superimposed on CKD: Problem details: ANA in renal transplant due to compromise in renal perfusion Hypervolemic - Getting diuresis; Urine cocaine sent No change in immunosupression now Concur with rest of current management Labs AM. Shall follow up closely Status: Acute Procedures Date of Service Date of Service: 01/28/21
--- NOTE | 2021-01-28 10:52 | PM.CNCAR ---
History of Present Illness History of Present Illness Date of Service: 01/28/21 Requesting physician: Catherine Ascnecio Consult reason: atrial fibrillation and congestive heart failure Chief complaint: C Diff, GI Bleed Narrative: We were asked to see Deshaun in cardiology consultation today. Deshaun is extremely complicated past medical history with history of severe LV systolic dysfunction with nonischemic cardiomyopathy and heart failure, atrial fibrillation which has failed cardioversion recently about 2 weeks ago, on amiodarone therapy with a plan for outpatient cardioversion at some point time, pacemaker placement for second-degree AV block, chronic kidney disease with prior renal transplantation, prior cocaine abuse. Patient presents to the hospital with bloody diarrhea and multiple episodes of diarrhea and noted to have C diff. however he also has had leg swelling and right arm swelling for last few days. He denies any orthopnea, PND. He was noted to have elevated BNP and findings consistent with heart failure, also has elevated creatinine consistent with acute kidney injury, not sure this is related to congestive heart failure or his overall worsening medical condition. He says he has been added rehab facility/detox facility, but is not getting much help. He says he has got weaker and not been able to do much. At this time is not even able to sit up in bed without 2 people helping him. Denies any chest pain, lightheadedness. Review of Systems Constitutional: Constitutional: Denies chills, Denies fever(s), Reports lethargy and Reports malaise Cardiovascular: Cardiovascular: Denies chest pain, Denies syncope, Reports leg edema, Denies lightheadedness and Denies palpitations Respiratory: Respiratory: Reports no additional respiratory complaints Gastrointestinal: Gastrointestinal: Reports hematochezia and Reports diarrhea Genitourinary: Genitourinary: Reports no additional male genitourinary complaints Neurologic: Reports system reviewed and no additional complaints, except as documented and Denies syncope Psychiatric: Psychiatric: Reports no additional psychiatric complaints Endocrine: Endocrine: Denies palpitations Hematologic/Lymphatic: Hematologic/Lymphatic: Reports no additional hematologic/lymphatic complaints [facility] Past Medical History Medical History (Updated 01/28/21 @ 11:02 by Atruro Rodriguez MD) Acute on chronic systolic heart failure Acute systolic (congestive) heart failure Afib Asthma Atrial fibrillation Atrial fibrillation with rapid ventricular response Bipolar disorder Cellulitis of left foot Congestive heart failure DVT (deep venous thrombosis) Essential hypertension Gout Heart failure with reduced ejection fraction Hip osteoarthritis History of seizures Obesity Pacemaker PAF (paroxysmal atrial fibrillation) Polysubstance abuse Renal failure, acute on chronic Renal transplant recipient Second degree heart block Subdural hematoma Syncope Thrombocytopenia Tobacco abuse Unilateral primary osteoarthritis, left knee Urinary bladder cancer Family History Family History Father Prostate cancer Mother No problems noted. Brother Cancer Surgical History Surgical History Abscess of arm, left H/O cardiac radiofrequency ablation History of cardiac catheterization History of removal of cyst History of removal of cyst Kidney replaced by transplant Kidney transplant recipient Social History Social History Household Members: Other Housing: Other Housing Other:: Rehab facility Do you presently have visiting nurse or other home services: No (Nurses at alf) Alcohol intake: never Smoking Status: Current every day smoker Tobacco Type: Cigarette Packs Per Day: 1 Cigarettes Per Day: 3 Patient Interested in Nicotine Replacement: Yes Second Hand Smoke Exposure: Yes Use of substances other than those prescribed or required for medical reasons: Yes Substance Use Type: Crack/Cocaine Substance Use Frequency: Monthly Currently Displaying Signs/Symptoms of Drug Intoxication Withdrawal: No Any prior treatment program specific to substance use: No Have you been hit, kicked, punched, or otherwise hurt by someone within the past year? If so, by whom?: No Do you feel safe in your current relationship?: No Current Relationship Is there a partner from a previous relationship who is making you feel unsafe now?: No Are you made to feel afraid or neglected: No Advance Directives: No Advance Directives Information Provided: Yes Advance Directives Date on File: 12/25/20 Do you have thoughts of harming others: None Do you have a plan to hurt others: No Plan Recently lost weight without trying: No Nutrition Risks: Poor intake 0-25% >4 days service: No Current occupational status: unemployed Meds Allergies Allergy/AdvReac Type Severity Reaction Status Date / Time indomethacin [Indocin] Allergy Unknown Unknown Verified 01/21/21 09:06 Active Medications: Current Medications Generic Name Dose Route Start Last Admin Trade Name Freq PRN Reason Stop Dose Admin Acetaminophen 650 mg 01/28/21 02:46 01/28/21 08:35 Acetaminophen 325 Mg Tablet PO 650 mg Q6H PRN Administration Pain, Mild (Pain Scale 1-3) Amiodarone HCl 200 mg 01/30/21 09:00 Amiodarone Hcl 200 Mg Tablet PO DAILY [facility] Amiodarone HCl 400 mg 01/28/21 10:30 Amiodarone Hcl 200 Mg Tablet PO 01/30/21 07:00 BID [facility] Aripiprazole 30 mg 01/28/21 10:15 Aripiprazole 30 Mg Tablet PO DAILY [facility] Divalproex Sodium 500 mg 01/28/21 10:15 Divalproex Sodium Er 500 Mg Tab.Er.24h PO DAILY [facility] Divalproex Sodium 1,000 mg 01/28/21 21:00 Divalproex Sodium Er 500 Mg Tab.Er.24h PO BEDTIME [facility] Docusate Sodium 100 mg 01/28/21 02:46 Docusate Sodium 100 Mg Capsule PO DAILY PRN Constipation Furosemide 40 mg 01/28/21 06:45 01/28/21 06:46 Furosemide 40 Mg/4 Ml Vial IVPUSH 40 mg Q12H [facility] Administration Protocol Hydralazine HCl 10 mg 01/28/21 21:00 Hydralazine Hcl 10 Mg Tablet PO BID [facility] Protocol Isosorbide Dinitrate 5 mg 01/28/21 10:20 Isosorbide Dinitrate 5 Mg Tablet PO BID [facility] Protocol Magnesium Oxide 400 mg 01/28/21 21:00 Magnesium Oxide 400 Mg Tablet PO BID [facility] Metoprolol Succinate 50 mg 01/28/21 10:20 Metoprolol Succinate Er 50 Mg Tab.Er.24h PO BID [facility] Protocol Non-Formulary Medication 1 tab 01/28/21 10:30 Sod Phos Di, Delta-K Phos Delta [Phospha 250 Neutral] PO DAILY [facility] Ondansetron HCl 4 mg 01/28/21 02:46 Ondansetron Hcl 4 Mg/2 Ml Vial IVPUSH Q8H PRN Nausea and Vomiting Pantoprazole Sodium 40 mg 01/28/21 07:45 01/28/21 08:35 Pantoprazole Sodium 40 Mg/10 Ml Vial IVPUSH 40 mg BID@0630,1630 [facility] Administration Prednisone 10 mg 01/29/21 09:00 Prednisone 10 Mg Tablet PO DAILY [facility] Rivaroxaban 15 mg 01/28/21 18:00 Rivaroxaban 15 Mg Tablet PO DAILY@1800 [facility] Sodium Chloride 3 ml 01/28/21 08:00 01/28/21 08:35 0.9 % Sodium Chloride Flush 3 Ml Syringe IVFLUSH 3 ml QSHIFT [facility] Administration Tacrolimus 2 mg 01/28/21 10:20 Tacrolimus 1 Mg Capsule PO BID [facility] Vancomycin HCl 125 mg 01/28/21 01:00 01/28/21 06:46 Vancomycin Hcl 125 Mg Capsule PO 125 mg Q6H YOLANDA Administration Home Medications Medication Instructions Recorded Confirmed Last Taken Type amiodarone 1 tab PO QAM 01/28/21 01/28/21 Unknown History amiodarone 400 mg PO BID 01/28/21 01/28/21 Unknown History aripiprazole [Abilify] 30 mg PO DAILY 01/28/21 01/28/21 Unknown History divalproex 1 tab PO DAILY 01/28/21 01/28/21 Unknown History divalproex 2 tab PO BEDTIME 01/28/21 01/28/21 Unknown History furosemide [Lasix] 40 mg PO BID 01/28/21 01/28/21 Unknown History hydralazine [Apresoline] 10 mg PO BID 01/28/21 01/28/21 Unknown History isosorbide dinitrate 5 mg PO BID 01/28/21 01/28/21 Unknown History magnesium oxide 400 mg PO BID 01/28/21 01/28/21 Unknown History metoprolol succinate 1 tab PO BID 01/28/21 01/28/21 Unknown History omeprazole [Prilosec] 20 mg PO DAILY 01/28/21 01/28/21 Unknown History prednisone 10 mg PO DAILY 01/28/21 01/28/21 Unknown History rivaroxaban [Xarelto] 15 mg PO QPM 01/28/21 01/28/21 Unknown History sod phos di, mono-K phos mono 1 tab PO DAILY 01/28/21 01/28/21 Unknown History [Phospha 250 Neutral] tacrolimus 2 cap PO BID 01/28/21 01/28/21 Unknown History Physical Exam Vital Signs: Vital Signs: Last Vital Signs Temp 97.3 F 01/28/21 07:30 Pulse 88 01/28/21 07:30 Resp 18 01/28/21 07:30 BP 116/71 01/28/21 07:30 Pulse Ox 100 01/28/21 07:30 Body Mass Index 25.8 Const: General: cooperative, no acute distress, ill appearing and poor hygiene Nutritional Appearance: average body habitus Orientation/consciousness: patient oriented x3 Limitations: physical limitations HENMT: Head: Yes normocephalic and Yes atraumatic Neck: Neck: Yes trachea midline, Yes supple and Yes JVD Carotids: no bruits Resp: Effort & Inspection: decreased respiratory effort Auscultation: diminished lung sounds and other (Limited exam as patient cannot sit up, anterior and laterally clear) Cardio: Jugular venous distension: JVD Palpation: abnormal PMI displaced PMI Rhythm: abnormal rhythm irregularly irregular Heart sounds: S1 normal heart sound present, S2 normal heart sound present and Murmur heart sound present systolic GI: Auscultation: normal bowel sounds Skin: General skin exam: no rashes or lesions noted and ecchymosis Neuro: General: patient oriented x3, no focal motor deficits and other (Diffuse tremor/shakiness) Extrem: General: No clubbing, No cyanosis and Yes edema Results Labs and Meds Result diagrams: 01/27/21 22:34 01/28/21 08:03 Lab results: Laboratory Results - last 24 hr 01/27/21 01/27/21 01/27/21 22:34 22:34 22:34 WBC 4.0 L RBC 4.12 L Hgb 11.9 L Hct 38.2 L MCV 92.7 MCH 28.9 MCHC 31.2 RDW 15.9 Plt Count 82 L MPV 9.8 Immature Gran % (Auto) 0.8 H Neut % (Auto) 71.8 Lymph % (Auto) 15.8 L Delta % (Auto) 11.3 H Eos % (Auto) 0.0 Baso % (Auto) 0.3 Lymph # (Auto) 0.6 L Delta # (Auto) 0.5 Eos # (Auto) 0.0 Baso # (Auto) 0.0 Abs Immat Gran (auto) 0.03 Absolute Neuts (auto) 2.9 Absolute Nucleated RBC 0.000 Nucleated RBC % (auto) 0.0 Smear Tech's Comments VERIFIED PT 16.3 H INR 1.4 H Sodium 141 Potassium 4.6 Chloride 104 Carbon Dioxide 28 Anion Gap 14 BUN 66 H Creatinine 3.14 H Estim Creat Clear Calc 25.1 Estimated GFR 20 Random Glucose 131 H D Calcium 9.2 Magnesium Total Bilirubin 0.7 AST 11 ALT 11 Alkaline Phosphatase 58 B-Natriuretic Peptide Total Protein 5.4 L Albumin 3.0 L Lipase Urine Color Urine Appearance Urine pH Ur Specific [place] Urine Protein Urine Glucose (UA) Urine Ketones Urine Blood Urine Nitrite Ur Leukocyte Esterase Stool Occult Blood C. difficile Toxin A&B C. difficile Antigen C. difficile Interpret COVID-19 ([facility]ARISSA) COVID-19 [facility] Blood Type Antibody Screen 01/27/21 01/27/21 01/27/21 22:34 22:34 22:34 WBC RBC Hgb Hct MCV MCH MCHC RDW Plt Count MPV Immature Gran % (Auto) Neut % (Auto) Lymph % (Auto) Delta % (Auto) Eos % (Auto) Baso % (Auto) Lymph # (Auto) Delta # (Auto) Eos # (Auto) Baso # (Auto) Abs Immat Gran (auto) Absolute Neuts (auto) Absolute Nucleated RBC Nucleated RBC % (auto) Smear Tech's Comments PT INR Sodium Potassium Chloride Carbon Dioxide Anion Gap BUN Creatinine Estim Creat Clear Calc Estimated GFR Random Glucose Calcium Magnesium 1.6 Total Bilirubin AST ALT Alkaline Phosphatase B-Natriuretic Peptide Total Protein Albumin Lipase 13 Urine Color Urine Appearance Urine pH Ur Specific [place] Urine Protein Urine Glucose (UA) Urine Ketones Urine Blood Urine Nitrite Ur Leukocyte Esterase Stool Occult Blood C. difficile Toxin A&B C. difficile Antigen C. difficile Interpret COVID-19 ([facility]ISSA) COVID-19 [facility] Blood Type O Positive Antibody Screen NEGATIVE 01/27/21 01/27/21 01/27/21 22:34 22:43 22:43 WBC RBC Hgb Hct MCV MCH MCHC RDW Plt Count MPV Immature Gran % (Auto) Neut % (Auto) Lymph % (Auto) Delta % (Auto) Eos % (Auto) Baso % (Auto) Lymph # (Auto) Delta # (Auto) Eos # (Auto) Baso # (Auto) Abs Immat Gran (auto) Absolute Neuts (auto) Absolute Nucleated RBC Nucleated RBC % (auto) Smear Tech's Comments PT INR Sodium Potassium Chloride Carbon Dioxide Anion Gap BUN Creatinine Estim Creat Clear Calc Estimated GFR Random Glucose Calcium Magnesium Total Bilirubin AST ALT Alkaline Phosphatase B-Natriuretic Peptide 1302 H Total Protein Albumin Lipase Urine Color Urine Appearance Urine pH Ur Specific [place] Urine Protein Urine Glucose (UA) Urine Ketones Urine Blood Urine Nitrite Ur Leukocyte Esterase Stool Occult Blood POSITIVE C. difficile Toxin A&B Positive A C. difficile Antigen Positive A C. difficile Interpret SEE NOTE COVID-19 ([facility]) COVID-19 [facility] Blood Type Antibody Screen 01/28/21 01/28/21 01/28/21 00:17 05:01 08:03 WBC RBC Hgb Hct MCV MCH MCHC RDW Plt Count MPV Immature Gran % (Auto) Neut % (Auto) Lymph % (Auto) Delta % (Auto) Eos % (Auto) Baso % (Auto) Lymph # (Auto) Delta # (Auto) Eos # (Auto) Baso # (Auto) Abs Immat Gran (auto) Absolute Neuts (auto) Absolute Nucleated RBC Nucleated RBC % (auto) Smear Tech's Comments PT INR Sodium 143 Potassium 4.7 Chloride 105 Carbon Dioxide 26 Anion Gap 17 BUN 62 H Creatinine 2.72 H Estim Creat Clear Calc 29.0 Estimated GFR 24 Random Glucose 89 Calcium 9.2 Magnesium Total Bilirubin AST ALT Alkaline Phosphatase B-Natriuretic Peptide Total Protein Albumin Lipase Urine Color YELLOW Urine Appearance CLEAR Urine pH 6.0 Ur Specific [place] 1.020 Urine Protein TRACE Urine Glucose (UA) NEG Urine Ketones NEG Urine Blood NEG Urine Nitrite NEG Ur Leukocyte Esterase NEG Stool Occult Blood C. difficile Toxin A&B C. difficile Antigen C. difficile Interpret COVID-19 ([facility]IS[facility]) Negative COVID-19 Clin Com See Note Blood Type Antibody Screen EKG shows atrial fibrillation with intermittent ventricular pacing with underlying right bundle-branch block and left anterior fascicular block Imaging Radiologist's impression: Impressions Abdomen/Pelvis CT 01/27/21 23:49 IMPRESSION: 1. No acute bowel abnormality identified. 2. Slightly hyperdense material in the gallbladder could reflect sludge or gallstones. This would be better assessed with ultrasound. Abdomen Ultrasound 01/28/21 01:15 IMPRESSION: Normal sonographic appearance of the gallbladder. No acute findings identified. Assessment and Plan (1) CHF exacerbation: Status: Acute Patient with multiple medical problems and multiple illnesses, very complicated. Appears to be fluid overloaded clinically with worsening BNP in the setting of known severe LV systolic dysfunction, non ischemic. Continue IV diuresis. Strict intake and output chart needs to be pursued. Continue afterload and preload is consultant with hydralazine Isordil therapy given his kidney dysfunction. Continue to monitor him closely with his vital signs. Given his worsening renal function, nephrology consult should be called as he has very complicated prior history including prior renal transplant. Overall prognosis is guarded. He also has significant deconditioning and muscle wasting noted. (2) Atrial fibrillation: Qualifiers: Atrial fibrillation type: longstanding persistent Qualified Code(s): I48.11 - Longstanding persistent atrial fibrillation Status: Inactive Persistent atrial fibrillation setting of severe left atrial enlargement. This is not helping his overall heart failure syndrome. However given his bloody diarrhea his Xarelto is appropriately being held. Cannot undergo synchronized cardioversion at this point in time at least for four weeks after initiation of oral anticoagulation therapy. Unless he has significant deterioration for overall cardiac function, may pursue JUAN M guided cardioversion at that point in time. Continue amiodarone therapy. Continue rate control with metoprolol. Will follow with the patient. Greater than 45 minutes was spent in managing his complex care P Procedures Date of Service Date of Service: 01/28/21
[2021-01-28 11:29] LABS: Cocaine Screen Urine Not Detected (Not Detect)
--- NOTE | 2021-01-28 11:45 | MHC.CM.PN ---
CM met with patient at the bedside who reports he amb with a walker and [facility] at a detention house for [facility] rehab. Patient does not have services or HCP. Declines filling out HCP today. Discussed discharge plan, patient will return to detention house. Patient will need assist with transportation. CM will continue to follow for discharge needs.
[2021-01-28] MEDS: Isosorbide Dinitrate 5 MG TABLET PO ×2 (11:50→21:43)
[2021-01-28] MEDS: Divalproex Sodium ER 500 MG TAB.ER.24H PO (11:50)
[2021-01-28] MEDS: ARIPiprazole 30 MG TABLET PO (11:50)
[2021-01-28] MEDS: Metoprolol Succinate ER 50 MG TAB.ER.24H PO ×2 (11:51→21:43)
[2021-01-28] MEDS: Amiodarone HCL 200 MG TABLET PO (11:51)
[2021-01-28] MEDS: Tacrolimus 1 MG CAPSULE 2 MG PO ×2 (11:52→21:43)
[2021-01-28] MEDS: Amiodarone HCL 200 MG TABLET 400 MG PO ×2 (11:52→21:44)
--- NOTE | 2021-01-28 13:31 | MHC.CLN ---
RE: CONSULT PT IS CURRENTLY NPO WHEN DIET TO ADVANCE; RECOMMEND ADDING ENSURE TID TO INCREASE KCALS SUPPLEMENT TO PROVIDE [id number], 60G PROTEIN
--- NOTE | 2021-01-28 17:08 | PM.EVENT ---
Event Note Date of Service: 01/28/21 Event Note: GI Consult-Full note dictated Hx via patient, RN, and EMR. Imp: C. diff infection with resultant diarrhea and some rectal bleeding in a 60 yo male on Xarelto with multiple medical issues, as well as ongoing substance abuse with crack by his report. He has been stable since admission with no further reported diarrhea nor rectal bleeding. He presently is hungry. He denies abdominal pain nor N/V today. His abdominal exam is benign and the CT does not show any significant findings in regard to colitis nor any other GI pathology. Rec:Continue oral Vanco for C.diff. Advance diet. Change back to po PPI. F/U Hgb. Would hold Xarelto for another few days. I would hold off on colonoscopy given the clinical history and his overall condition. Please call if I can be of any further assistance during his hospitalization. D/W patient and he is comfortable with this plan. Thanks
[2021-01-28] MEDS: Rivaroxaban 15 MG TABLET PO (17:58)
[2021-01-28] MEDS: hydrALAZINE HCl 10 MG TABLET PO (21:43)
[2021-01-28] MEDS: Divalproex Sodium ER 500 MG TAB.ER.24H 1000 MG PO (21:43)
[2021-01-28] MEDS: Magnesium Oxide 400 MG TABLET PO (21:43)
--- NOTE | 2021-01-28 22:16 | CONS_ITS ---
DATE OF SERVICE: 01/28/2021 REASON FOR CONSULTATION: Diarrhea, hematochezia, and C difficile infection. HISTORY OF PRESENT ILLNESS: The patient is a 60-year-old male with multiple medical issues including atrial fibrillation for which he is on Xarelto, renal insufficiency for which he is status post a previous renal transplant, history of hypertension, previous prostate cancer, and substance abuse including his description of using crack prior to this hospitalization. The patient reports that yesterday he noted the onset of loose bowel movements, which were brown, but had some bright red blood mixed with them. He did not notice any melena. He denies any associated nausea nor vomiting. He denied any abdominal pain. He has not been on any antibiotics outside the hospital as far as he can recall. However, he was recently in the hospital for a cardioversion. In the past 24 hours since he has been in the hospital, there has been no report of any further bleeding nor diarrhea. This has been confirmed with his nurse. His stool specimen did come back positive for C difficile and he has been started on oral vancomycin. The patient has had no nausea nor vomiting. He denies any dysphagia nor significant heartburn. He is hungry and would like to eat regular food. MEDICATIONS: Presently include oral vancomycin, acetaminophen, amiodarone, Abilify, divalproex, Colace, Lasix, hydralazine, isosorbide, metoprolol, prednisone, Xarelto, Prograf. PAST MEDICAL HISTORY: Status post renal transplant. Pacemaker. Cardioversion last week in the hospital. Atrial fibrillation. Hypertension. Component of cardiomyopathy. He describes a history of [place]. He denies any history of stroke. He has a history of bipolar disease. DVT. Arthritis. Seizure disorder. Substance abuse with reported use of crack before coming in to the hospital on this occasion. Thrombocytopenia. CHF. Asthma. SOCIAL HISTORY: He does smoke. He has a history of substance abuse. He denies any alcohol presently. REVIEW OF SYSTEMS: CONSTITUTIONAL: He has been feeling poorly at home with fatigue and anorexia. SKIN: No rash. No pruritus. CARDIAC: No chest pain. PULMONARY: No coughing. No hemoptysis. GASTROINTESTINAL: As above. PHYSICAL EXAMINATION: GENERAL: The patient is an is alert, cooperative male, in no distress. Answers questions appropriately. SKIN: Warm and dry. HEENT: Anicteric sclerae. ABDOMEN: Soft, nondistended, nontender without mass. LABORATORY DATA: His hemoglobin yesterday was 11.9 compared to 11.6 on January 14. Platelets 82,000, white blood cell count 4000. PT 16.3 with INR 1.4. Normal electrolytes. BUN 62, creatinine 2.7. He had a normal liver profile on admission. His CAT scan did not reveal any sign of colitis, bowel obstruction. His liver appeared normal. There was no splenomegaly. There is no sign of any bowel obstruction nor any obvious colitis. IMPRESSION: Given the patient's clinical history of a positive stool for C difficile, his diarrhea, and some hematochezia, this seems quite consistent with an episode of C difficile induced diarrhea with a possible component of some colitis. He is on Xarelto, which obviously could make bleeding more pronounced than it would be otherwise. At this point, he is not showing any signs of active bleeding and his abdominal exam is completely benign. I do not think he requires colonoscopy at this time in light of the clinical situation as well as his overall medical condition. I would continue p.o. vancomycin as you are doing. I think his diet can be advanced given his benign abdomen, nonrevealing CAT scan, and his desire to eat. I would change him back to an oral PPI as I do not think he needs to be on IV PPIs at this time. I see that he is already on Xarelto, but if he has any further bleeding, I would hold the Xarelto for at least a few days. I do not think a colonoscopy is required given his clinical history of the positive C difficile and his overall clinical condition. I would be happy to re-evaluate him during the hospitalization if need be. Please call me if I can be of any further assistance. This has been discussed with the patient in detail. He is comfortable with this plan. Thank you for this consultation. MD MIRA Murguia/DARRYL / [phone] [id number]
[2021-01-29] VITALS (12 sets, daily range): BP systolic 103–153; BP diastolic 54–85; PULSE 66–101; RESP 18–20; TEMP 36.7–37.5; O2SAT 96–98
[2021-01-29] MEDS: 0.9 % Sodium Chloride Flush 3 ML SYRINGE IVFLUSH ×4 (01:32→20:35)
[2021-01-29] MEDS: vancomycin HCL 125 MG CAPSULE PO ×4 (02:17→19:23)
[2021-01-29 06:13] LABS: MANUAL DIFF FLAG NO
[2021-01-29 06:17] LABS: Basophils Percent Auto 0.2 % (0-2); Eosinophils Percent Auto 0.2 % (0-4); Hematocrit 33.7 % (42-52); Hemoglobin 10.7 g/dl (14.0-18.0); Imm Gran Abs Auto 0.07 X10*3/uL (0.00-0.03); Imm Gran Pct Auto 1.3 % (0.0-0.4); Lymphocytes Absolute Auto 1.5 X10*3/uL (1.2-4.9); Mean Corpuscular HGB Conc 31.8 g/dl (31.0-36.0); Mean Corpuscular Hemoglobin 29.3 pg (27.0-33.0); Mean Corpuscular Volume 92.3 fL (80-98); Mean Platelet Volume 10.3 fL (9.4-12.4); Monocytes Absolute Auto 0.6 X10*3/uL (0.1-1.2); Monocytes Percent Auto 12.3 % (2-11); Red Blood Count 3.65 X10*6/uL (4.60-5.80); Red Cell Distribution Width 15.8 % (11.0-16.0); White Blood Count 5.2 X10*3/uL (4.8-10.8)
[2021-01-29 06:25] LABS: Platelet Count 71 X10*3/uL (160-400)
[2021-01-29] MEDS: Omeprazole 20 MG CAPSULE.DR PO (06:28)
[2021-01-29] MEDS: Furosemide 40 MG/4 ML VIAL IVPUSH ×2 (06:29→18:30)
[2021-01-29 06:42] LABS: Anion Gap 14 (12-20); Blood Urea Nitrogen 59 mg/dL (9-16); Carbon Dioxide 26 mmol/L (22-29); Chloride 105 mmol/L (96-108); Creatinine Clr Calc Pharmacy 27.8; Estimated Glomerular Filt Rate 23; Glucose Random 88 mg/dL (60-115); Potassium 4.7 mmol/L (3.3-5.1); Sodium 140 mmol/L (135-145)
--- NOTE | 2021-01-29 07:51 | PC.NURSE ---
pt complaining of right arm and shoulder pain. Right arm is edematous from mid upper arm to fingertips. Radial pulse palpable and regular. Will notify
[2021-01-29] MEDS: Magnesium Oxide 400 MG TABLET PO ×2 (09:16→20:33)
[2021-01-29] MEDS: Tacrolimus 1 MG CAPSULE 2 MG PO ×2 (09:16→20:34)
[2021-01-29] MEDS: Isosorbide Dinitrate 5 MG TABLET PO ×2 (09:17→20:33)
[2021-01-29] MEDS: ARIPiprazole 30 MG TABLET PO (09:17)
[2021-01-29] MEDS: hydrALAZINE HCl 10 MG TABLET PO ×2 (09:17→20:34)
[2021-01-29] MEDS: Amiodarone HCL 200 MG TABLET 400 MG PO ×2 (09:17→20:35)
[2021-01-29] MEDS: Divalproex Sodium ER 500 MG TAB.ER.24H PO (09:17)
[2021-01-29] MEDS: predniSONE 10 MG TABLET PO (09:17)
[2021-01-29] MEDS: Metoprolol Succinate ER 50 MG TAB.ER.24H PO ×2 (09:18→20:33)
--- NOTE | 2021-01-29 12:55 | PM.PNNEP ---
Subjective Subjective Date of Service: 01/29/21 Interval history: Events noted. All recent data reviewed Physical Exam Vital Signs: Vital Signs: Last Vital Signs Temp 98.0 F 01/29/21 11:37 Pulse 66 01/29/21 11:37 Resp 19 01/29/21 11:37 BP 128/60 01/29/21 11:37 Pulse Ox 96 01/29/21 11:37 Body Mass Index 25.8 Const: General: no acute distress Orientation/consciousness: patient oriented x3 Neck: Neck: Yes supple Resp: Auscultation: diminished lung sounds Cardio: Heart sounds: no rubs GI: Palpation (GI): Soft to palpation Neuro: General: patient oriented x3 and moves all extremities Objective Data Labs CBC & Chem 7: 01/29/21 05:23 01/29/21 05:23 Labs: Laboratory Results - last 24 hr 01/29/21 01/29/21 05:23 05:23 WBC 5.2 RBC 3.65 L Hgb 10.7 L Hct 33.7 L MCV 92.3 MCH 29.3 MCHC 31.8 RDW 15.8 Plt Count 71 L MPV 10.3 Immature Gran % (Auto) 1.3 H Neut % (Auto) 58.0 Lymph % (Auto) 28.0 [place] % (Auto) 12.3 H Eos % (Auto) 0.2 Baso % (Auto) 0.2 Lymph # (Auto) 1.5 [place] # (Auto) 0.6 Eos # (Auto) 0.0 Baso # (Auto) 0.0 Abs Immat Gran (auto) 0.07 H Absolute Neuts (auto) 3.0 Absolute Nucleated RBC 0.000 Nucleated RBC % (auto) 0.0 Sodium 140 Potassium 4.7 Chloride 105 Carbon Dioxide 26 Anion Gap 14 BUN 59 H Creatinine 2.84 H Estim Creat Clear Calc 27.8 Estimated GFR 23 Random Glucose 88 Calcium 9.0 Assessment & Plan Assessment and plan (1) Acute kidney injury superimposed on CKD: Status: Acute Assessment and Plan: ANA in renal transplant due to compromise in renal perfusion Hypervolemic - Getting diuresis; Urine cocaine negative No change in immunosupression now Concur with rest of current management Labs AM. Shall follow up closely Time Spent With Patient Time: Total time spent is greater than 50% in coordination of care (as documented) at patient's floor/unit and/or counseling patient: Procedures Date of Service Date of Service: 01/29/21
--- NOTE | 2021-01-29 14:24 | P.PNIM_ITS ---
Subjective Subjective Date of Service: 01/29/21 Interval History: the patient was seen and evaluated this morning Laying in bed, feels comfortable overall but right upper extremity swelling increasing No reported bleeding overnight No more diarrhea Denies any fever, chills or shortness of breath No reported other overnight events. Systemic review: No fever, chills or weakness No chest pain, palpitation No shortness of breath or coughing No abdominal pain, nausea or vomiting No urinary symptoms No any rash or wounds Physical Exam Vital Signs: Vital Signs: Last Vital Signs Temp 98.0 F 01/29/21 11:37 Pulse 66 01/29/21 11:37 Resp 19 01/29/21 11:37 BP 128/60 01/29/21 11:37 Pulse Ox 96 01/29/21 11:37 Body Mass Index 25.8 Const: Other: Constitutional : Alert, oriented, mildly anxious Neck : Normal inspection, Supple Cardiovascular : RRR, S1 S2, trace bilateral lower extremity edema Respiratory : fair bilateral air entry, no crackles, wheezes or rhonchi Gastrointestinal: soft, lax, Normal bowel sounds, Non tender Skin : Warm/Dry, edema and right upper extremity extending above the elbow Muscular, right upper extremity weakness, cannot move the shoulder but able to move the wrist and elbow, significant swelling, no tenderness or erythema Neurological : Alert & oriented x3, No focal deficit Objective Data Current Medications Generic Name Dose Route Start Last Admin Trade Name Freq PRN Reason Stop Dose Admin Acetaminophen 650 mg 01/28/21 02:46 01/28/21 08:35 Acetaminophen 325 Mg Tablet PO 650 mg Q6H PRN Administration Pain, Mild (Pain Scale 1-3) Amiodarone HCl 200 mg 01/30/21 09:00 01/28/21 11:51 Amiodarone Hcl 200 Mg Tablet PO 200 mg DAILY YOLANDA Administration Amiodarone HCl 400 mg 01/28/21 10:30 01/29/21 09:17 Amiodarone Hcl 200 Mg Tablet PO 01/30/21 07:00 400 mg BID YOLANDA Administration Aripiprazole 30 mg 01/28/21 10:15 01/29/21 09:17 Aripiprazole 30 Mg Tablet PO 30 mg DAILY YOLANDA Administration Divalproex Sodium 500 mg 01/28/21 10:15 01/29/21 09:17 Divalproex Sodium Er 500 Mg Tab.Er.24h PO 500 mg DAILY YOLANDA Administration Divalproex Sodium 1,000 mg 01/28/21 21:00 01/28/21 21:43 Divalproex Sodium Er 500 Mg Tab.Er.24h PO 1,000 mg BEDTIME YOLANDA Administration Docusate Sodium 100 mg 01/28/21 02:46 Docusate Sodium 100 Mg Capsule PO DAILY PRN Constipation Furosemide 40 mg 01/28/21 06:45 01/29/21 06:29 Furosemide 40 Mg/4 Ml Vial IVPUSH 40 mg Q12H YOLANDA Administration Protocol Hydralazine HCl 10 mg 01/28/21 21:00 01/29/21 09:17 Hydralazine Hcl 10 Mg Tablet PO 10 mg BID YOLANDA Administration Protocol Isosorbide Dinitrate 5 mg 01/28/21 10:20 01/29/21 09:17 Isosorbide Dinitrate 5 Mg Tablet PO 5 mg BID YOLANDA Administration Protocol Magnesium Oxide 400 mg 01/28/21 21:00 01/29/21 09:16 Magnesium Oxide 400 Mg Tablet PO 400 mg BID YOLANDA Administration Metoprolol Succinate 50 mg 01/28/21 10:20 01/29/21 09:18 Metoprolol Succinate Er 50 Mg Tab.Er.24h PO 50 mg BID YOLANDA Administration Protocol Non-Formulary Medication 1 tab 01/28/21 10:30 Sod Phos Di, [place]-K Phos [place] [Phospha 250 Neutral] PO DAILY [facility] Omeprazole 20 mg 01/29/21 06:30 01/29/21 06:28 Omeprazole 20 Mg Capsule.Dr PO 20 mg DAILY@0630 YOLANDA Administration Ondansetron HCl 4 mg 01/28/21 02:46 Ondansetron Hcl 4 Mg/2 Ml Vial IVPUSH Q8H PRN Nausea and Vomiting Prednisone 10 mg 01/29/21 09:00 01/29/21 09:17 Prednisone 10 Mg Tablet PO 10 mg DAILY YOLANDA Administration Sodium Chloride 3 ml 01/28/21 08:00 01/29/21 07:49 0.9 % Sodium Chloride Flush 3 Ml Syringe IVFLUSH 3 ml QSHIFT YOLANDA Administration Tacrolimus 2 mg 01/28/21 10:20 01/29/21 09:16 Tacrolimus 1 Mg Capsule PO 2 mg BID YOLANDA Administration Vancomycin HCl 125 mg 01/28/21 01:00 01/29/21 13:40 Vancomycin Hcl 125 Mg Capsule PO 125 mg Q6H YOLANDA Administration Labs CBC & Chem 7: 01/29/21 05:23 01/29/21 05:23 Assessment and Plan (1) C. difficile diarrhea: Status: Acute (2) GI bleed: Status: Acute (3) Acute kidney injury superimposed on CKD: Status: Acute (4) Diarrhea: Status: Acute (5) CHF exacerbation: Status: Acute Assessment and Plan: this is a 60 yo m extensive hx as mentioned above who presents to the hospital with complaints of diarrhea as well as gi bleed C diff infection no recent abx use but recent hospital stay Continue PO vanco date 10/25 GI bleed occult stool blood positive possible 10/13 c.diff on anticoagulation, held today hgb stable Tolerating diet, to advance GI input appreciated, no need for intervention, can changed to p.o. PPI Continue omeprazole Acute systolic CHF exacerbation elevated BNP and edema Continue IV Lasix b.i.d. Echo from november showed EF of 15-20% Cardiology input appreciated, And output ANA on CKD Improves slowly to 2.8, Continue IV Lasix Monitor BMP Nephrology evaluation Right shoulder pain and swelling X-ray from 01/21 showing no fracture or dislocation Orthopedic team evaluated the patient, no intervention needed, put a sling To do ultrasound Doppler to rule out DVT Keep arm elevated Persistent Afib underwent cardioversion on 01/14 To restart Xarelto tomorrow continue amiodarone and metoprolol DVT ppx: SCDs
--- NOTE | 2021-01-29 14:25 | P.PNCA_ITS ---
Subjective Subjective Date of Service: 01/29/21 Principal diagnosis: Cardiomyopathy, atrial fibrillation. Interval history: Patient has no cardiac symptoms. Continues to say that he has right shoulder discomfort and discomfort on his left flank and back. He has no reported diarrhea. His intake and output chart is probably not accurate. He says he has been diuresing well. His renal function have been stable. Has been seen by GI as well as Nephrology. He says he cannot lift himself up in bed. He continues to have right arm swelling and bilateral leg swelling. Review of Systems Constitutional: Reports weakness Cardiovascular: Reports no additional cardiovascular complaints and Reports dyspnea Respiratory: Reports no additional respiratory complaints and Reports dyspnea Gastrointestinal: Reports no additional gastrointestinal complaints Musculoskeletal: Reports back pain, Reports myalgias and Reports arthralgias Reports weakness Endocrine: Reports no additional endocrine complaints Hematologic/Lymphatic: Reports no additional hematologic/lymphatic complaints Physical Exam Vital Signs: Last Vital Signs Temp 98.0 F 01/29/21 11:37 Pulse 66 01/29/21 11:37 Resp 19 01/29/21 11:37 BP 128/60 01/29/21 11:37 Pulse Ox 96 01/29/21 11:37 Body Mass Index 25.8 Const General: cooperative, no acute distress, alert, awake, ill appearing and poor hygiene Nutritional Appearance: underweight Orientation/consciousness: patient oriented x3 Neck Neck: Yes trachea midline, Yes supple and Yes JVD Resp Effort & Inspection: decreased respiratory effort Auscultation: diminished lung sounds Cardio Rate: regular rate Rhythm: regular rhythm Heart sounds: S1 normal heart sound present and S2 normal heart sound present Skin General skin exam: ecchymosis Neuro General: patient oriented x3 Extrem General: No clubbing, No cyanosis and Yes edema Results Labs and Meds Result diagrams: 01/29/21 05:23 01/29/21 05:23 Lab results: Laboratory Results - last 24 hr 01/29/21 01/29/21 05:23 05:23 WBC 5.2 RBC 3.65 L Hgb 10.7 L Hct 33.7 L MCV 92.3 MCH 29.3 MCHC 31.8 RDW 15.8 Plt Count 71 L MPV 10.3 Immature Gran % (Auto) 1.3 H Neut % (Auto) 58.0 Lymph % (Auto) 28.0 [place] % (Auto) 12.3 H Eos % (Auto) 0.2 Baso % (Auto) 0.2 Lymph # (Auto) 1.5 [place] # (Auto) 0.6 Eos # (Auto) 0.0 Baso # (Auto) 0.0 Abs Immat Gran (auto) 0.07 H Absolute Neuts (auto) 3.0 Absolute Nucleated RBC 0.000 Nucleated RBC % (auto) 0.0 Sodium 140 Potassium 4.7 Chloride 105 Carbon Dioxide 26 Anion Gap 14 BUN 59 H Creatinine 2.84 H Estim Creat Clear Calc 27.8 Estimated GFR 23 Random Glucose 88 Calcium 9.0 Progress Note: A&P Assessment and plan (1) CHF exacerbation: Status: Acute Assessment and Plan: Middle-aged man with multiple medical problems and multiple comorbidities, presents with C diff infection and diarrhea and noted to be fluid overloaded. Clinically still appears to be fluid overloaded. However this was very difficult to assess. He presents no cardiac symptoms at current time. Continue IV diuresis. Continue to maintain strict intake and output chart. His renal function is worse compared to before but has been stable. Strict intake and output chart needs to be pursued. Continue vasodilators isosorbide as well as for hydralazine. Maximize as tolerated. Continue metoprolol therapy as well. Overall prognosis is guarded and poor. (2) Afib: Status: Acute Assessment and Plan: Persistent atrial fibrillation despite being on amiodarone and prior attempt at cardioversion. However at that time he had not complete loading with amiodarone. Currently of Xarelto therapy due to reported bleeding with d iarrhea. Reviewed GI consult. Consider resuming his oral anticoagulant therapy with Xarelto at 15 mg. Continue to monitor renal function closely. If GFR continues to decline with GFR less than 15 will have to reconsider oral anticoagulation to warfarin therapy. Continue amiodarone and metoprolol for rate control at this point in time. Once oral anticoagulation of his reestablished, can re-attempt cardioversion in 4 weeks as outpatient. Currently no further recommendations. Will sign of the case. Re-consult us if needed Fall Risk Details Current Medications: Current Medications Generic Name Dose Route Start Last Admin Trade Name Freq PRN Reason Stop Dose Admin Acetaminophen 650 mg 01/28/21 02:46 01/28/21 08:35 Acetaminophen 325 Mg Tablet PO 650 mg Q6H PRN Administration Pain, Mild (Pain Scale 1-3) Amiodarone HCl 200 mg 01/30/21 09:00 01/28/21 11:51 Amiodarone Hcl 200 Mg Tablet PO 200 mg DAILY YOLANDA Administration Amiodarone HCl 400 mg 01/28/21 10:30 01/29/21 09:17 Amiodarone Hcl 200 Mg Tablet PO 01/30/21 07:00 400 mg BID YOLANDA Administration Aripiprazole 30 mg 01/28/21 10:15 01/29/21 09:17 Aripiprazole 30 Mg Tablet PO 30 mg DAILY YOLANDA Administration Divalproex Sodium 500 mg 01/28/21 10:15 01/29/21 09:17 Divalproex Sodium Er 500 Mg Tab.Er.24h PO 500 mg DAILY YOLANDA Administration Divalproex Sodium 1,000 mg 01/28/21 21:00 01/28/21 21:43 Divalproex Sodium Er 500 Mg Tab.Er.24h PO 1,000 mg BEDTIME YOLANDA Administration Docusate Sodium 100 mg 01/28/21 02:46 Docusate Sodium 100 Mg Capsule PO DAILY PRN Constipation Furosemide 40 mg 01/28/21 06:45 01/29/21 06:29 Furosemide 40 Mg/4 Ml Vial IVPUSH 40 mg Q12H [facility] Administration Protocol Hydralazine HCl 10 mg 01/28/21 21:00 01/29/21 09:17 Hydralazine Hcl 10 Mg Tablet PO 10 mg BID YOLANDA Administration Protocol Isosorbide Dinitrate 5 mg 01/28/21 10:20 01/29/21 09:17 Isosorbide Dinitrate 5 Mg Tablet PO 5 mg BID [facility] Administration Protocol Magnesium Oxide 400 mg 01/28/21 21:00 01/29/21 09:16 Magnesium Oxide 400 Mg Tablet PO 400 mg BID YOLANDA Administration Metoprolol Succinate 50 mg 01/28/21 10:20 01/29/21 09:18 Metoprolol Succinate Er 50 Mg Tab.Er.24h PO 50 mg BID [facility] Administration Protocol Non-Formulary Medication 1 tab 01/28/21 10:30 Sod Phos Di, [place]-K Phos [place] [Phospha 250 Neutral] PO DAILY [facility] Omeprazole 20 mg 01/29/21 06:30 01/29/21 06:28 Omeprazole 20 Mg Capsule.Dr PO 20 mg DAILY@0630 YOLANDA Administration Ondansetron HCl 4 mg 01/28/21 02:46 Ondansetron Hcl 4 Mg/2 Ml Vial IVPUSH Q8H PRN Nausea and Vomiting Prednisone 10 mg 01/29/21 09:00 01/29/21 09:17 Prednisone 10 Mg Tablet PO 10 mg DAILY YOLANDA Administration Sodium Chloride 3 ml 01/28/21 08:00 01/29/21 07:49 0.9 % Sodium Chloride Flush 3 Ml Syringe IVFLUSH 3 ml QSHIFT YOLANDA Administration Tacrolimus 2 mg 01/28/21 10:20 01/29/21 09:16 Tacrolimus 1 Mg Capsule PO 2 mg BID YOLANDA Administration Vancomycin HCl 125 mg 01/28/21 01:00 01/29/21 13:40 Vancomycin Hcl 125 Mg Capsule PO 125 mg Q6H YOLANDA Administration Time Spent With Patient Time: Total time spent is greater than 50% in coordination of care (as documented) at patient's floor/unit and/or counseling patient: Time with patient: 25 - 35 minutes Procedures Date of Service Date of Service: 01/29/21
--- NOTE | 2021-01-29 16:19 | MHC.CM.PN ---
DP MALE Per PT eval recommends STR. Referrals have been sent to facilities. Transport will be via BLS. CM will follow.
[2021-01-29] MEDS: Rivaroxaban 15 MG TABLET PO (18:30)
[2021-01-29] MEDS: Divalproex Sodium ER 500 MG TAB.ER.24H 1000 MG PO (20:32)
[2021-01-30] VITALS (9 sets, daily range): BP systolic 101–145; BP diastolic 58–78; PULSE 60–81; RESP 18–20; TEMP 36.6–37.8; O2SAT 92–100
[2021-01-30] MEDS: vancomycin HCL 125 MG CAPSULE PO ×4 (00:09→23:54)
[2021-01-30 05:21] LABS: Hematocrit 34.4 % (42-52); Hemoglobin 10.8 g/dl (14.0-18.0); Mean Corpuscular HGB Conc 31.4 g/dl (31.0-36.0); Mean Corpuscular Hemoglobin 28.6 pg (27.0-33.0); Mean Corpuscular Volume 91.2 fL (80-98); Mean Platelet Volume 10.4 fL (9.4-12.4); Red Blood Count 3.77 X10*6/uL (4.60-5.80); Red Cell Distribution Width 15.7 % (11.0-16.0); White Blood Count 9.5 X10*3/uL (4.8-10.8)
[2021-01-30 05:27] LABS: Platelet Count 78 X10*3/uL (160-400)
[2021-01-30] MEDS: Omeprazole 20 MG CAPSULE.DR PO (05:53)
[2021-01-30] MEDS: Furosemide 40 MG/4 ML VIAL IVPUSH ×2 (05:53→17:40)
[2021-01-30 05:55] LABS: Anion Gap 18 (12-20); Blood Urea Nitrogen 58 mg/dL (9-16); Calcium 9.7 mg/dL (8.4-10.2); Carbon Dioxide 24 mmol/L (22-29); Chloride 104 mmol/L (96-108); Estimated Glomerular Filt Rate 23; Glucose Random 104 mg/dL (60-115); Potassium 4.6 mmol/L (3.3-5.1); Sodium 141 mmol/L (135-145)
[2021-01-30] MEDS: PHENobarbitaL sodium 130 MG/ML VIAL 292 MG IM (08:59)
[2021-01-30] MEDS: Magnesium Oxide 400 MG TABLET PO ×2 (09:00→19:56)
[2021-01-30] MEDS: Isosorbide Dinitrate 5 MG TABLET PO ×2 (09:00→19:56)
[2021-01-30] MEDS: Tacrolimus 1 MG CAPSULE 2 MG PO ×2 (09:00→19:57)
[2021-01-30] MEDS: ARIPiprazole 30 MG TABLET PO (09:00)
[2021-01-30] MEDS: Metoprolol Succinate ER 50 MG TAB.ER.24H PO ×2 (09:01→19:56)
[2021-01-30] MEDS: hydrALAZINE HCl 10 MG TABLET PO ×2 (09:01→19:56)
[2021-01-30] MEDS: Divalproex Sodium ER 500 MG TAB.ER.24H PO (09:02)
[2021-01-30] MEDS: predniSONE 10 MG TABLET PO (09:02)
[2021-01-30] MEDS: PHENobarbitaL sodium 130 MG/ML VIAL 219 MG IM (12:30)
[2021-01-30] MEDS: Acetaminophen 325 MG TABLET 650 MG PO (12:46)
--- NOTE | 2021-01-30 12:46 | PC.NURSE ---
pt has been cleaned and shaved. He is warm to touch. Obtained rectqal temp 101.0. Gave tylenol. aware.
[2021-01-30 14:04] LABS: Lactic Acid 0.7 mmol/L (0.5-2.0)
--- NOTE | 2021-01-30 14:27 | HO.PM.IMPN ---
Subjective Subjective Date of Service: 01/30/21 Interval History: the patient was seen and evaluated this morning Laying in bed, feels comfortable overall but right upper extremity swelling and pain Mildly disoriented overnight Spiked a fever of 100 this morning No reported bleeding or diarrhea overnight No reported other overnight events. Systemic review: No fever, chills or weakness but found to have a fever of 100 degree No chest pain, palpitation No shortness of breath or coughing No abdominal pain, nausea or vomiting No urinary symptoms No any rash or wounds Physical Exam Vital Signs: Vital Signs: Last Vital Signs Temp 100.1 F 01/30/21 12:00 Pulse 60 01/30/21 12:00 Resp 20 01/30/21 12:00 BP 124/59 L 01/30/21 12:00 Pulse Ox 95 01/30/21 12:00 Body Mass Index 25.8 Const: Other: Constitutional : Alert, oriented, mildly anxious Neck : Normal inspection, Supple Cardiovascular : RRR, S1 S2, trace bilateral lower extremity edema Respiratory : fair bilateral air entry, no crackles, wheezes or rhonchi Gastrointestinal: soft, lax, Normal bowel sounds, Non tender Skin : Warm/Dry, edema and right upper extremity extending above the elbow Muscular, right upper extremity weakness, cannot move the shoulder but able to move the wrist and elbow, significant swelling, no tenderness or erythema, in sling Neurological : Alert & oriented x3, No focal deficit Objective Data Current Medications Generic Name Dose Route Start Last Admin Trade Name Freq PRN Reason Stop Dose Admin Acetaminophen 650 mg 01/28/21 02:46 01/30/21 12:46 Acetaminophen 325 Mg Tablet PO 650 mg Q6H PRN Administration Pain, Mild (Pain Scale 1-3) Amiodarone HCl 200 mg 01/30/21 09:00 01/28/21 11:51 Amiodarone Hcl 200 Mg Tablet PO 200 mg DAILY YOLANDA Administration Aripiprazole 30 mg 01/28/21 10:15 01/30/21 09:00 Aripiprazole 30 Mg Tablet PO 30 mg DAILY YOLANDA Administration Divalproex Sodium 500 mg 01/28/21 10:15 01/30/21 09:02 Divalproex Sodium Er 500 Mg Tab.Er.24h PO 500 mg DAILY YOLANDA Administration Divalproex Sodium 1,000 mg 01/28/21 21:00 01/29/21 20:32 Divalproex Sodium Er 500 Mg Tab.Er.24h PO 1,000 mg BEDTIME YOLANDA Administration Docusate Sodium 100 mg 01/28/21 02:46 Docusate Sodium 100 Mg Capsule PO DAILY PRN Constipation Furosemide 40 mg 01/28/21 06:45 01/30/21 05:53 Furosemide 40 Mg/4 Ml Vial IVPUSH 40 mg Q12H YOLANDA Administration Protocol Hydralazine HCl 10 mg 01/28/21 21:00 01/30/21 09:01 Hydralazine Hcl 10 Mg Tablet PO 10 mg BID YOLANDA Administration Protocol Isosorbide Dinitrate 5 mg 01/28/21 10:20 01/30/21 09:00 Isosorbide Dinitrate 5 Mg Tablet PO 5 mg BID [facility] Administration Protocol Magnesium Oxide 400 mg 01/28/21 21:00 01/30/21 09:00 Magnesium Oxide 400 Mg Tablet PO 400 mg BID [facility] Administration Medication 1 each 01/30/21 09:00 No Benzodiazepines MISCELLANE DAILY [facility] Metoprolol Succinate 50 mg 01/28/21 10:20 01/30/21 09:01 Metoprolol Succinate Er 50 Mg Tab.Er.24h PO 50 mg BID [facility] Administration Protocol Non-Formulary Medication 1 tab 01/28/21 10:30 Sod Phos Di, [place]-K Phos [place] [Phospha 250 Neutral] PO DAILY [facility] Omeprazole 20 mg 01/29/21 06:30 01/30/21 05:53 Omeprazole 20 Mg Capsule.Dr PO 20 mg DAILY@0630 [facility] Administration Ondansetron HCl 4 mg 01/28/21 02:46 Ondansetron Hcl 4 Mg/2 Ml Vial IVPUSH Q8H PRN Nausea and Vomiting Phenobarbital 45 mg 01/30/21 21:00 Phenobarbital 15 Mg Tablet PO 02/01/21 09:01 BID [facility] Phenobarbital 15 mg 02/01/21 21:00 Phenobarbital 15 Mg Tablet PO 02/03/21 09:01 BID [facility] Phenobarbital 15 mg 02/03/21 21:00 Phenobarbital 15 Mg Tablet PO 02/04/21 21:01 BEDTIME [facility] Prednisone 10 mg 01/29/21 09:00 01/30/21 09:02 Prednisone 10 Mg Tablet PO 10 mg DAILY YOLANDA Administration Rivaroxaban 15 mg 01/29/21 18:00 01/29/21 18:30 Rivaroxaban 15 Mg Tablet PO 15 mg DAILY@1800 YOLANDA Administration Sodium Chloride 3 ml 01/28/21 08:00 01/30/21 09:37 0.9 % Sodium Chloride Flush 3 Ml Syringe IVFLUSH Not Given QSHIFT YOLANDA Tacrolimus 2 mg 01/28/21 10:20 01/30/21 09:00 Tacrolimus 1 Mg Capsule PO 2 mg BID YOLANDA Administration Vancomycin HCl 125 mg 01/28/21 01:00 01/30/21 09:01 Vancomycin Hcl 125 Mg Capsule PO 125 mg Q6H YOLANDA Administration Labs CBC & Chem 7: 01/30/21 04:44 01/30/21 04:44 Assessment and Plan (1) C. difficile diarrhea: Status: Acute (2) GI bleed: Status: Acute (3) Acute kidney injury superimposed on CKD: Status: Acute (4) Diarrhea: Status: Acute (5) CHF exacerbation: Status: Acute Assessment and Plan: this is a 60 yo m extensive hx as mentioned above who presents to the hospital with complaints of diarrhea as well as gi bleed C diff infection no recent abx use but recent hospital stay Continue PO vanco date 10/25 Fever could be secondary to C diff or aspiration Check an x-ray Check urinalysis Send blood cultures and lactic acid Add incentive spirometry Hold on antibiotic and tele sources identified given C diff infection GI bleed occult stool blood positive 10/13 c.diff on anticoagulation which was restarted hgb stable Tolerating diet GI input appreciated, no need for intervention, can changed to p.o. PPI Continue omeprazole Acute systolic CHF exacerbation elevated BNP and edema Continue IV Lasix b.i.d. Echo from november showed EF of 15-20% Cardiology input appreciated, Intake output ANA on CKD Stabilized around 2.8 Continue IV Lasix Monitor BMP Nephrology evaluation Right shoulder pain and swelling X-ray from 01/21 showing no fracture or dislocation Orthopedic team evaluated the patient, no intervention needed, put a sling ruled out DVT by US Repeat XR Keep arm elevated Persistent Afib underwent cardioversion on 01/14 To restart Xarelto tomorrow continue amiodarone and metoprolol DVT ppx SCDs
--- NOTE | 2021-01-30 15:44 | PM.PNNEP ---
Subjective Subjective Date of Service: 01/30/21 Principal diagnosis: Cardiomyopathy, atrial fibrillation. Interval history: no acute events tolerating IV lasix Cr stable but off baseline Physical Exam Vital Signs: Vital Signs: Last Vital Signs Temp 99.1 F 01/30/21 15:26 Pulse 68 01/30/21 15:26 Resp 20 01/30/21 15:26 BP 101/60 01/30/21 15:26 Pulse Ox 92 01/30/21 15:26 Body Mass Index 25.8 Const: General: no acute distress Orientation/consciousness: patient oriented x3 Eyes: EOM: EOMs intact bilaterally Neck: Neck: Yes supple Resp: Auscultation: diminished lung sounds Cardio: Rate: regular rate Heart sounds: no rubs GI: Palpation (GI): Soft to palpation Neuro: General: patient oriented x3 and moves all extremities Objective Data Labs CBC & Chem 7: 01/30/21 04:44 01/30/21 04:44 Labs: Laboratory Results - last 24 hr 01/30/21 01/30/21 01/30/21 04:44 04:44 13:34 WBC 9.5 RBC 3.77 L Hgb 10.8 L Hct 34.4 L MCV 91.2 MCH 28.6 MCHC 31.4 RDW 15.7 Plt Count 78 L MPV 10.4 Absolute Nucleated RBC 0.000 Nucleated RBC % (auto) 0.0 Sodium 141 Potassium 4.6 Chloride 104 Carbon Dioxide 24 Anion Gap 18 BUN 58 H Creatinine 2.82 H Estim Creat Clear Calc 28.0 Estimated GFR 23 Random Glucose 104 Lactic Acid 0.7 Calcium 9.7 D Assessment & Plan Assessment and plan (1) Acute kidney injury superimposed on CKD: Status: Acute Assessment and Plan: ANA in renal transplant due hypervolemia. No change in immunosupression now Continue with IV lasix Renal panel daily. Time Spent With Patient Time: Total time spent is greater than 50% in coordination of care (as documented) at patient's floor/unit and/or counseling patient: Procedures Date of Service Date of Service: 01/30/21
[2021-01-30] MEDS: 0.9 % Sodium Chloride Flush 3 ML SYRINGE IVFLUSH ×2 (15:50→20:07)
[2021-01-30 16:06] LABS: Glucose Urine UA NEG (NEG); Leukocyte Esterase Urine NEG (NEG); Nitrite Urine NEG (NEG); Specific Gravity - Urine 1.015 (1.005-1.025); Urine Blood TRACE (NEG); Urine Ketones NEG (NEG); Urine Protein 1+ MG/DL (NEG-TRACE)
[2021-01-30 16:10] LABS: Appearance Urine CLEAR; Color Urine YELLOW
[2021-01-30 16:16] LABS: RBC Urine 0-2 /HPF (0); Squamous Epithelial Cell Urine TRACE /LPF; WBC Urine 0 /HPF (0-4)
[2021-01-30] MEDS: Rivaroxaban 15 MG TABLET PO (17:40)
--- NOTE | 2021-01-30 17:41 | PC.NURSE ---
pt had been very agitated and confused earlier today, he was medicated with phenobarbitol for withdrawl sx and has been sleeping soundly. Second dose held as pt was too sedated to administer. Avery continue to monitor
[2021-01-30] MEDS: Divalproex Sodium ER 500 MG TAB.ER.24H 1000 MG PO (19:55)
[2021-01-30] MEDS: PHENobarbitaL 15 MG TABLET 45 MG PO (20:01)
[2021-01-31] VITALS (11 sets, daily range): BP systolic 119–166; BP diastolic 53–91; PULSE 60–118; RESP 18–20; TEMP 36.6–37.6; O2SAT 93–96
[2021-01-31] MEDS: Omeprazole 20 MG CAPSULE.DR PO (06:19)
[2021-01-31] MEDS: vancomycin HCL 125 MG CAPSULE PO ×3 (06:19→18:36)
[2021-01-31] MEDS: Furosemide 40 MG/4 ML VIAL IVPUSH (06:19)
[2021-01-31 07:00] LABS: Hematocrit 36.2 % (42-52); Hemoglobin 11.4 g/dl (14.0-18.0); Mean Corpuscular HGB Conc 31.5 g/dl (31.0-36.0); Mean Corpuscular Hemoglobin 28.8 pg (27.0-33.0); Mean Corpuscular Volume 91.4 fL (80-98); Red Blood Count 3.96 X10*6/uL (4.60-5.80); Red Cell Distribution Width 15.9 % (11.0-16.0); White Blood Count 9.8 X10*3/uL (4.8-10.8)
[2021-01-31 07:04] LABS: Platelet Count 79 X10*3/uL (160-400)
[2021-01-31 07:17] LABS: Anion Gap 17 (12-20); Blood Urea Nitrogen 62 mg/dL (9-16); Calcium 9.4 mg/dL (8.4-10.2); Carbon Dioxide 27 mmol/L (22-29); Chloride 103 mmol/L (96-108); Creatinine Clr Calc Pharmacy 26.2; Estimated Glomerular Filt Rate 21; Glucose Random 97 mg/dL (60-115); Potassium 4.9 mmol/L (3.3-5.1); Sodium 142 mmol/L (135-145)
[2021-01-31] MEDS: 0.9 % Sodium Chloride Flush 3 ML SYRINGE IVFLUSH ×3 (10:00→21:33)
[2021-01-31] MEDS: PHENobarbitaL 15 MG TABLET 45 MG PO ×2 (10:03→21:30)
[2021-01-31] MEDS: hydrALAZINE HCl 10 MG TABLET PO ×2 (10:03→21:43)
[2021-01-31] MEDS: Isosorbide Dinitrate 5 MG TABLET PO ×2 (10:04→21:32)
[2021-01-31] MEDS: ARIPiprazole 30 MG TABLET PO (10:04)
[2021-01-31] MEDS: Amiodarone HCL 200 MG TABLET PO (10:04)
[2021-01-31] MEDS: Metoprolol Succinate ER 50 MG TAB.ER.24H PO ×2 (10:05→21:31)
[2021-01-31] MEDS: predniSONE 10 MG TABLET PO (10:05)
[2021-01-31] MEDS: Magnesium Oxide 400 MG TABLET PO ×2 (10:05→21:32)
[2021-01-31] MEDS: Tacrolimus 1 MG CAPSULE 2 MG PO ×2 (10:06→21:33)
[2021-01-31] MEDS: Divalproex Sodium ER 500 MG TAB.ER.24H PO (10:06)
--- NOTE | 2021-01-31 14:46 | P.PNNP_ITS ---
Subjective Subjective Date of Service: 01/31/21 Principal diagnosis: Cardiomyopathy, atrial fibrillation. Interval history: No acute events likely being over diuresed Cr rising in the setting of net neg 1L Physical Exam Vital Signs: Vital Signs: Last Vital Signs Temp 98.7 F 01/31/21 12:00 Pulse 62 01/31/21 12:00 Resp 20 01/31/21 12:00 BP 119/67 01/31/21 12:00 Pulse Ox 95 01/31/21 12:00 Body Mass Index 25.8 Const: General: no acute distress Orientation/consciousness: patient oriented x3 Eyes: EOM: EOMs intact bilaterally Neck: Neck: Yes supple Resp: Auscultation: diminished lung sounds Cardio: Rate: regular rate Heart sounds: no rubs GI: Palpation (GI): Soft to palpation Neuro: General: patient oriented x3 and moves all extremities Objective Data Labs CBC & Chem 7: 01/31/21 06:34 01/31/21 06:34 Labs: Laboratory Results - last 24 hr 01/30/21 01/31/21 01/31/21 15:59 06:34 06:34 WBC 9.8 RBC 3.96 L Hgb 11.4 L Hct 36.2 L MCV 91.4 MCH 28.8 MCHC 31.5 RDW 15.9 Plt Count 79 L MPV 10.0 Absolute Nucleated RBC 0.000 Nucleated RBC % (auto) 0.0 Sodium 142 Potassium 4.9 Chloride 103 Carbon Dioxide 27 Anion Gap 17 BUN 62 H Creatinine 3.01 H Estim Creat Clear Calc 26.2 Estimated GFR 21 Random Glucose 97 Calcium 9.4 Urine Color YELLOW Urine Appearance CLEAR Urine pH 6.0 Ur Specific [place] 1.015 Urine Protein 1+ H Urine Glucose (UA) NEG Urine Ketones NEG Urine Blood TRACE Urine Nitrite NEG Ur Leukocyte Esterase NEG Urine RBC 0-2 Urine WBC 0 Ur Squamous Epith Cells TRACE Urine Bacteria NONE Assessment & Plan Assessment and plan (1) Acute kidney injury superimposed on CKD: Status: Acute Assessment and Plan: ANA in renal transplant due hypervolemia, approaching euvolemia No change in immunosupression now Hold IV lasix today. Renal panel daily. Time Spent With Patient Time: Total time spent is greater than 50% in coordination of care (as documented) at patient's floor/unit and/or counseling patient: Procedures Date of Service Date of Service: 01/31/21
--- NOTE | 2021-01-31 15:51 | HO.PM.IMPN ---
Subjective Subjective Date of Service: 01/31/21 Interval History: the patient was seen and evaluated this morning Laying in bed, feels tired and lobes more lethargic and fatigued he is alert and able to answer questions Mildly disoriented overnight and this morning, could be hospital induced delirium No reported bleeding or diarrhea overnight No reported other overnight events. No fever reported overnight Systemic review: No fever, chills or weakness= No chest pain, palpitation No shortness of breath or coughing No abdominal pain, nausea or vomiting No urinary symptoms No any rash or wounds Physical Exam Vital Signs: Vital Signs: Last Vital Signs Temp 98.2 F 01/31/21 15: Pulse 86 01/31/21 15: Resp 18 01/31/21 15: BP 138/91 H 01/31/21 15: Pulse Ox 96 01/31/21 15: Body Mass Index 25.8 Const: Other: Constitutional : Alert, oriented, mildly anxious Neck : Normal inspection, Supple Cardiovascular : RRR, S1 S2, trace bilateral lower extremity edema Respiratory : fair bilateral air entry, no crackles, wheezes or rhonchi Gastrointestinal: soft, lax, Normal bowel sounds, Non tender Skin : Warm/Dry, edema and right upper extremity extending above the elbow improved a little, left upper extremity dialysis fistula Muscular, right upper extremity weakness, cannot move the shoulder but able to move the wrist and elbow, significant swelling, no tenderness or erythema, in sling Neurological : Alert & oriented x3, No focal deficit Objective Data Current Medications Generic Name Dose Route Start Last Admin Trade Name Freq PRN Reason Stop Dose Admin Acetaminophen 650 mg 01/28/21 02:46 01/30/21 12:46 Acetaminophen 325 Mg Tablet PO 650 mg Q6H PRN Administration Pain, Mild (Pain Scale 1-3) Amiodarone HCl 200 mg 01/30/21 09:00 01/31/21 10:04 Amiodarone Hcl 200 Mg Tablet PO 200 mg DAILY YOLANDA Administration Aripiprazole 30 mg 01/28/21 10:15 01/31/21 10:04 Aripiprazole 30 Mg Tablet PO 30 mg DAILY YOLANDA Administration Divalproex Sodium 500 mg 01/28/21 10:15 01/31/21 10:06 Divalproex Sodium Er 500 Mg Tab.Er.24h PO 500 mg DAILY YOLANDA Administration Divalproex Sodium 1,000 mg 01/28/21 21:00 01/30/21 19:55 Divalproex Sodium Er 500 Mg Tab.Er.24h PO 1,000 mg BEDTIME YOLANDA Administration Docusate Sodium 100 mg 01/28/21 02:46 Docusate Sodium 100 Mg Capsule PO DAILY PRN Constipation Hydralazine HCl 10 mg 01/28/21 21:00 01/31/21 10:03 Hydralazine Hcl 10 Mg Tablet PO 10 mg BID YOLANDA Administration Protocol Isosorbide Dinitrate 5 mg 01/28/21 10:20 01/31/21 10:04 Isosorbide Dinitrate 5 Mg Tablet PO 5 mg BID YOLANDA Administration Protocol Magnesium Oxide 400 mg 01/28/21 21:00 01/31/21 10:05 Magnesium Oxide 400 Mg Tablet PO 400 mg BID YOLANDA Administration Medication 1 each 01/30/21 09:00 No Benzodiazepines MISCELLANE DAILY YOLANDA Metoprolol Succinate 50 mg 01/28/21 10:20 01/31/21 10:05 Metoprolol Succinate Er 50 Mg Tab.Er.24h PO 50 mg BID YOLANDA Administration Protocol Non-Formulary Medication 1 tab 01/28/21 10:30 Sod Phos Di, [place] Phos [place] [Phospha 250 Neutral] PO DAILY [facility] Omeprazole 20 mg 01/29/21 06:30 01/31/21 06:19 Omeprazole 20 Mg Capsule. PO 20 mg DAILY@0630 YOLANDA Administration Ondansetron HCl 4 mg 01/28/21 02:46 Ondansetron Hcl 4 Mg/2 Ml Vial IVPUSH Q8H PRN Nausea and Vomiting Phenobarbital 45 mg 01/30/21 21:00 01/31/21 10:03 Phenobarbital 15 Mg Tablet PO 02/01/21 09:01 45 mg BID YOLANDA Administration Phenobarbital 15 mg 02/01/21 21:00 Phenobarbital 15 Mg Tablet PO 02/03/21 09:01 BID YOLANDA Phenobarbital 15 mg 02/03/21 21:00 Phenobarbital 15 Mg Tablet PO 02/04/21 21:01 BEDTIME YOLANDA Prednisone 10 mg 01/29/21 09:00 01/31/21 10:05 Prednisone 10 Mg Tablet PO 10 mg DAILY YOLANDA Administration Rivaroxaban 15 mg 01/29/21 18:00 01/30/21 17:40 Rivaroxaban 15 Mg Tablet PO 15 mg DAILY@1800 YOLANDA Administration Sodium Chloride 3 ml 01/28/21 08:00 01/31/21 10:00 0.9 % Sodium Chloride Flush 3 Ml Syringe IVFLUSH 3 ml QSHIFT YOLANDA Administration Tacrolimus 2 mg 01/28/21 10:20 01/31/21 10:06 Tacrolimus 1 Mg Capsule PO 2 mg BID YOLANDA Administration Vancomycin HCl 125 mg 01/28/21 01:00 01/31/21 12:55 Vancomycin Hcl 125 Mg Capsule PO 125 mg Q6H YOLANDA Administration Labs CBC & Chem 7: 01/31/21 06:34 01/31/21 06:34 Microbiology Microbiology Results: Microbiology 01/30/21 13:34 Blood - Venous Blood Culture - Preliminary No growth after 24 hours. 01/30/21 13:34 Blood - Venous Blood Culture - Preliminary No growth after 24 hours. Assessment and Plan (1) C. difficile diarrhea: Status: Acute (2) GI bleed: Status: Acute (3) Acute kidney injury superimposed on CKD: Status: Acute (4) Diarrhea: Status: Acute (5) CHF exacerbation: Status: Acute Assessment and Plan: this is a 60 yo m extensive hx as mentioned above who presents to the hospital with complaints of diarrhea as well as gi bleed C diff infection no recent abx use but recent hospital stay Continue PO vanco date 10/25 Metabolic encephalopathy Secondary to infection, medications, hospital induced Fever could be secondary to C diff or aspiration Chest x-ray showing possible infiltrate versus fluid overload Negative urinalysis Pending blood cultures and negative lactic acid Add incentive spirometry Hold on antibiotic until sources identified given C diff infection GI bleed occult stool blood positive 2/ c.diff on anticoagulation which was restarted hgb stable Tolerating diet GI input appreciated, no need for intervention, can changed to p.o. PPI Continue omeprazole Acute systolic CHF exacerbation elevated BNP and edema Hold IV Lasix b.i.d. today per nephrology Echo from november showed EF of 15-20% Cardiology input appreciated, Intake output ANA on CKD Mildly worse to 3 Monitor BMP Nephrology evaluation Right shoulder pain and swelling X-ray from 01/21 showing no fracture or dislocation Orthopedic team evaluated the patient, no intervention needed, put a sling ruled out DVT by US Repeated XR showing suspicious of olecranon fracture, orthopedic suggested outpatient follow-up. Keep arm elevated Persistent Afib underwent cardioversion on 01/14 Restarted Xarelto continue amiodarone and metoprolol DVT ppx Xarelto
[2021-01-31] MEDS: Rivaroxaban 15 MG TABLET PO (18:35)
[2021-01-31] MEDS: Divalproex Sodium ER 500 MG TAB.ER.24H 1000 MG PO (21:34)
[2021-02-01] VITALS (11 sets, daily range): BP systolic 110–146; BP diastolic 60–96; PULSE 60–107; RESP 17–20; TEMP 36.4–37.3; O2SAT 91–98
[2021-02-01] MEDS: vancomycin HCL 125 MG CAPSULE PO ×4 (01:25→19:00)
[2021-02-01] MEDS: Omeprazole 20 MG CAPSULE.DR PO (06:30)
[2021-02-01 07:24] LABS: Hematocrit 33.7 % (42-52); Hemoglobin 10.5 g/dl (14.0-18.0); Mean Corpuscular HGB Conc 31.2 g/dl (31.0-36.0); Mean Corpuscular Hemoglobin 28.7 pg (27.0-33.0); Mean Corpuscular Volume 92.1 fL (80-98); Mean Platelet Volume 10.4 fL (9.4-12.4); Red Blood Count 3.66 X10*6/uL (4.60-5.80); Red Cell Distribution Width 15.9 % (11.0-16.0)
[2021-02-01 07:51] LABS: Platelet Count 62 X10*3/uL (160-400)
[2021-02-01 08:15] LABS: B Type Natriuretic Peptide 1562 pg/mL (<100)
[2021-02-01 08:23] LABS: Anion Gap 19 (12-20); Blood Urea Nitrogen 63 mg/dL (9-16); Calcium 9.5 mg/dL (8.4-10.2); Carbon Dioxide 23 mmol/L (22-29); Chloride 103 mmol/L (96-108); Creatinine Clr Calc Pharmacy 30.4; Estimated Glomerular Filt Rate 25; Glucose Random 84 mg/dL (60-115); Sodium 140 mmol/L (135-145)
[2021-02-01] MEDS: predniSONE 10 MG TABLET PO (08:50)
[2021-02-01] MEDS: Furosemide 40 MG/4 ML VIAL IVPUSH (08:50)
[2021-02-01] MEDS: Tacrolimus 1 MG CAPSULE 2 MG PO ×2 (08:50→20:31)
[2021-02-01] MEDS: Divalproex Sodium ER 500 MG TAB.ER.24H PO (08:50)
[2021-02-01] MEDS: Amiodarone HCL 200 MG TABLET PO (08:50)
[2021-02-01] MEDS: hydrALAZINE HCl 10 MG TABLET PO ×2 (08:50→20:34)
[2021-02-01] MEDS: ARIPiprazole 30 MG TABLET PO (08:51)
[2021-02-01] MEDS: Magnesium Oxide 400 MG TABLET PO ×2 (08:51→20:34)
[2021-02-01] MEDS: PHENobarbitaL 15 MG TABLET 45 MG PO (08:51)
[2021-02-01] MEDS: Isosorbide Dinitrate 5 MG TABLET PO ×2 (08:51→20:34)
[2021-02-01] MEDS: Metoprolol Succinate ER 50 MG TAB.ER.24H PO ×2 (08:51→20:31)
[2021-02-01] MEDS: 0.9 % Sodium Chloride Flush 3 ML SYRINGE IVFLUSH ×3 (08:54→20:34)
[2021-02-01 11:06] LABS: ABG Base Excess 6.3 mmol/L; ABG HCO3 29 mmol/L (22-26); ABG pCO2 37 mmHg (32-45); ABG pCO2 TC 37 mmHg (32-45); ABG pO2 76 mmHg (83-108); ABG pO2 TC 75 (83-108)
--- NOTE | 2021-02-01 11:11 | PM.PNNEP ---
Subjective Subjective Date of Service: 02/01/21 Principal diagnosis: Cardiomyopathy, atrial fibrillation. Interval history: Events noted. All recent data reviewed Physical Exam Vital Signs: Vital Signs: Last Vital Signs Temp 98.0 F 02/01/21 07:48 Pulse 60 02/01/21 08:51 Resp 18 02/01/21 07:48 BP 146/68 H 02/01/21 08:51 Pulse Ox 94 02/01/21 07:48 Body Mass Index 25.8 Const: General: no acute distress Eyes: EOM: EOMs intact bilaterally Neck: Neck: Yes supple Resp: Auscultation: diminished lung sounds Cardio: Heart sounds: no rubs GI: Palpation (GI): Soft to palpation Neuro: General: moves all extremities Objective Data Labs CBC & Chem 7: 02/01/21 05:46 02/01/21 05:47 Labs: Laboratory Results - last 24 hr 02/01/21 02/01/21 02/01/21 05:46 05:47 05:47 WBC 7.0 RBC 3.66 L Hgb 10.5 L Hct 33.7 L MCV 92.1 MCH 28.7 MCHC 31.2 RDW 15.9 Plt Count 62 L MPV 10.4 Absolute Nucleated RBC 0.000 Nucleated RBC % (auto) 0.0 O2 Saturation ABG pH at Pt Temp ABG pH (Temp Correct) ABG pCO2 at Pt Temp ABG pCO2 (Temp Corrct ABG pO2 at Pt Temp ABG pO2 (Temp Correct ABG HCO3 ABG Base Excess (Actual) Sodium 140 Potassium 5.0 Chloride 103 Carbon Dioxide 23 Anion Gap 19 BUN 63 H Creatinine 2.60 H Estim Creat Clear Calc 30.4 Estimated GFR 25 Random Glucose 84 Calcium 9.5 B-Natriuretic Peptide 1562 H 02/01/21 10:58 WBC RBC Hgb Hct MCV MCH MCHC RDW Plt Count MPV Absolute Nucleated RBC Nucleated RBC % (auto) O2 Saturation 93.0 ABG pH at Pt Temp 7.50 H ABG pH (Temp Correct) 7.50 H ABG pCO2 at Pt Temp 37 ABG pCO2 (Temp Corrct 37 ABG pO2 at Pt Temp 76 L ABG pO2 (Temp Correct 75 L ABG HCO3 29 H ABG Base Excess (Actual) 6.3 Sodium Potassium Chloride Carbon Dioxide Anion Gap BUN Creatinine Estim Creat Clear Calc Estimated GFR Random Glucose Calcium B-Natriuretic Peptide Microbiology Microbiology Results: Microbiology 01/30/21 13:34 Blood - Venous Blood Culture - Preliminary No growth after 24 hours. 01/30/21 13:34 Blood - Venous Blood Culture - Preliminary No growth after 24 hours. Assessment & Plan Assessment and plan (1) Acute kidney injury superimposed on CKD: Status: Acute Assessment and Plan: ANA in renal transplant due to compromise in renal perfusion Had been hypervolemic - Was getting diuresis Urine cocaine negative No change in immunosupression now Could restart low dose PO lasix Concur with rest of current management Labs AM. Shall follow up closely Time Spent With Patient Time: Total time spent is greater than 50% in coordination of care (as documented) at patient's floor/unit and/or counseling patient: Procedures Date of Service Date of Service: 02/01/21
[2021-02-01 13:09] LABS: ABG Refer to POC result
[2021-02-01 13:14] LABS: Valproate 86.1 mcg/mL (50.0-100.0)
--- NOTE | 2021-02-01 16:33 | HO.PM.IMPN ---
Subjective Subjective Date of Service: 02/01/21 Interval History: the patient was seen and evaluated this morning Laying in bed, feels tired and sleepy and fatigued When you wake him up he is alert and able to answer questions but goes back to sleep quickly No reported bleeding or diarrhea overnight No reported other overnight events. No fever reported overnight Systemic review: No fever, chills or weakness= No chest pain, palpitation No shortness of breath or coughing No abdominal pain, nausea or vomiting No urinary symptoms No any rash or wounds Physical Exam Vital Signs: Vital Signs: Last Vital Signs Temp 98 F 02/01/21 15:43 Pulse 102 H 02/01/21 15:43 Resp 17 02/01/21 15:43 BP 125/85 02/01/21 15:43 Pulse Ox 95 02/01/21 15:43 Body Mass Index 25.8 Const: Other: Constitutional : Alert with stimulation, oriented, mildly anxious Neck : Normal inspection, Supple Cardiovascular : RRR, S1 S2, trace bilateral lower extremity edema Respiratory : fair bilateral air entry, no crackles, wheezes or rhonchi Gastrointestinal: soft, lax, Normal bowel sounds, Non tender Skin : Warm/Dry, edema and right upper extremity extending above the elbow improved a little, left upper extremity dialysis fistula Muscular, right upper extremity weakness, cannot move the shoulder but able to move the wrist and elbow, significant swelling, no tenderness or erythema, in sling Neurological : Alert & oriented x3, No focal deficit Objective Data Current Medications Generic Name Dose Route Start Last Admin Trade Name Freq PRN Reason Stop Dose Admin Acetaminophen 650 mg 01/28/21 02:46 01/30/21 12:46 Acetaminophen 325 Mg Tablet PO 650 mg Q6H PRN Administration Pain, Mild (Pain Scale 1-3) Amiodarone HCl 200 mg 01/30/21 09:00 02/01/21 08:50 Amiodarone Hcl 200 Mg Tablet PO 200 mg DAILY YOLANDA Administration Aripiprazole 30 mg 01/28/21 10:15 02/01/21 08:51 Aripiprazole 30 Mg Tablet PO 30 mg DAILY YOLANDA Administration Divalproex Sodium 500 mg 01/28/21 10:15 02/01/21 08:50 Divalproex Sodium Er 500 Mg Tab.Er.24h PO 500 mg DAILY YOLANDA Administration Divalproex Sodium 1,000 mg 01/28/21 21:00 01/31/21 21:34 Divalproex Sodium Er 500 Mg Tab.Er.24h PO 1,000 mg BEDTIME YOLANDA Administration Docusate Sodium 100 mg 01/28/21 02:46 Docusate Sodium 100 Mg Capsule PO DAILY PRN Constipation Furosemide 40 mg 02/01/21 09:00 02/01/21 08:50 Furosemide 40 Mg/4 Ml Vial IVPUSH 40 mg BID@0900,1800 [facility] Administration Protocol Hydralazine HCl 10 mg 01/28/21 21:00 02/01/21 08:50 Hydralazine Hcl 10 Mg Tablet PO 10 mg BID [facility] Administration Protocol Ceftriaxone Sodium 1 gm/ 50 mls @ 100 mls/hr 01/31/21 16:00 Sodium Chloride IV Q24H [facility] Doxycycline Hyclate 100 mg/ 250 mls @ 166.67 mls/hr 01/31/21 17:00 Sodium Chloride IV Q12H [facility] Isosorbide Dinitrate 5 mg 01/28/21 10:20 02/01/21 08:51 Isosorbide Dinitrate 5 Mg Tablet PO 5 mg BID [facility] Administration Protocol Magnesium Oxide 400 mg 01/28/21 21:00 02/01/21 08:51 Magnesium Oxide 400 Mg Tablet PO 400 mg BID [facility] Administration Medication 1 each 01/30/21 09:00 No Benzodiazepines MISCELLANE DAILY [facility] Metoprolol Succinate 50 mg 01/28/21 10:20 02/01/21 08:51 Metoprolol Succinate Er 50 Mg Tab.Er.24h PO 50 mg BID [facility] Administration Protocol Non-Formulary Medication 1 tab 01/28/21 10:30 Sod Phos Di, [place]-K Phos [place] [Phospha 250 Neutral] PO DAILY [facility] Omeprazole 20 mg 01/29/21 06:30 02/01/21 06:30 Omeprazole 20 Mg Capsule.Dr PO 20 mg DAILY@0630 [facility] Administration Ondansetron HCl 4 mg 01/28/21 02:46 Ondansetron Hcl 4 Mg/2 Ml Vial IVPUSH Q8H PRN Nausea and Vomiting Prednisone 10 mg 01/29/21 09:00 02/01/21 08:50 Prednisone 10 Mg Tablet PO 10 mg DAILY YOLANDA Administration Rivaroxaban 15 mg 01/29/21 18:00 01/31/21 18:35 Rivaroxaban 15 Mg Tablet PO 15 mg DAILY@1800 [facility] Administration Sodium Chloride 3 ml 01/28/21 08:00 02/01/21 15:37 0.9 % Sodium Chloride Flush 3 Ml Syringe IVFLUSH 3 ml QSHIFT YOLANDA Administration Tacrolimus 2 mg 01/28/21 10:20 02/01/21 08:50 Tacrolimus 1 Mg Capsule PO 2 mg BID YOLANDA Administration Vancomycin HCl 125 mg 01/28/21 01:00 02/01/21 13:15 Vancomycin Hcl 125 Mg Capsule PO 125 mg Q6H YOLANDA Administration Labs CBC & Chem 7: 02/01/21 05:46 02/01/21 05:47 Microbiology Microbiology Results: Microbiology 01/30/21 13:34 Blood - Venous Blood Culture - Preliminary No growth after 48 hours. 01/30/21 13:34 Blood - Venous Blood Culture - Preliminary No growth after 48 hours. Assessment and Plan (1) C. difficile diarrhea: Status: Acute (2) GI bleed: Status: Acute (3) Acute kidney injury superimposed on CKD: Status: Acute (4) Diarrhea: Status: Acute (5) CHF exacerbation: Status: Acute Assessment and Plan: this is a 60 yo m extensive hx as mentioned above who presents to the hospital with complaints of diarrhea as well as gi bleed C diff infection no recent abx use but recent hospital stay Diarrhea resolved Continue PO vanco date 01/22, started 01/28 Metabolic encephalopathy Secondary to infection, medications, hospital induced Normal valproic acid level ABG showing no retention Avoid medications that might affect his mentation Recurrent reorientation, open of the curtains Change the diet to modified Fever One time, no recurrence could be secondary to C diff or aspiration Chest x-ray showing possible infiltrate versus fluid overload Negative urinalysis Pending blood cultures and negative lactic acid Add incentive spirometry Hold on antibiotic until sources identified given C diff infection GI bleed occult stool blood positive 2/2 c.diff on anticoagulation which was restarted hgb stable Tolerating diet GI input appreciated, no need for intervention, can changed to p.o. PPI Continue omeprazole Acute systolic CHF exacerbation elevated BNP and edema Restart IV Lasix b.i.d. today per nephrology Echo from november showed EF of 15-20% Cardiology input appreciated, Intake output ANA on CKD Improved back to baseline of 2.6 Monitor BMP Nephrology evaluation Right shoulder pain and swelling X-ray from 01/21 showing no fracture or dislocation Orthopedic team evaluated the patient, no intervention needed, put a sling ruled out DVT by US Repeated XR showing suspicious of glenoid fracture, orthopedic suggested outpatient follow-up. Keep arm elevated Persistent Afib underwent cardioversion on 5/6 Restarted Xarelto continue amiodarone and metoprolol DVT ppx Xarelto
[2021-02-01] MEDS: Rivaroxaban 15 MG TABLET PO (19:00)
[2021-02-01] MEDS: Furosemide 40 MG/4 ML VIAL 20 MG IVPUSH (19:00)
[2021-02-01] MEDS: Divalproex Sodium ER 500 MG TAB.ER.24H 1000 MG PO (20:34)
[2021-02-02] VITALS (12 sets, daily range): BP systolic 105–141; BP diastolic 53–97; PULSE 54–103; RESP 16–24; TEMP 36.7–37.6; O2SAT 91–93
[2021-02-02 06:49] LABS: Hematocrit 31.2 % (42-52); Hemoglobin 9.9 g/dl (14.0-18.0); Mean Corpuscular HGB Conc 31.7 g/dl (31.0-36.0); Mean Corpuscular Hemoglobin 28.9 pg (27.0-33.0); Mean Corpuscular Volume 91.2 fL (80-98); Mean Platelet Volume 10.1 fL (9.4-12.4); Red Blood Count 3.42 X10*6/uL (4.60-5.80); Red Cell Distribution Width 15.7 % (11.0-16.0)
[2021-02-02 06:58] LABS: Platelet Count 74 X10*3/uL (160-400)
[2021-02-02 10:13] LABS: Anion Gap 16 (12-20); Blood Urea Nitrogen 66 mg/dL (9-16); Calcium 9.7 mg/dL (8.4-10.2); Carbon Dioxide 25 mmol/L (22-29); Chloride 104 mmol/L (96-108); Creatinine Clr Calc Pharmacy 31.1; Estimated Glomerular Filt Rate 26; Glucose Random 87 mg/dL (60-115); Potassium 5.1 mmol/L (3.3-5.1); Sodium 140 mmol/L (135-145)
[2021-02-02 10:55] LABS: Amphetamine Screen Urine Not Detected (Not Detect); Barbiturates, Urine POSITIVE (Not Detect); Benzodiazepines Screen Urine Not Detected (Not Detect); Cannabinoid Screen Urine Not Detected (Not Detect); Cocaine Screen Urine Not Detected (Not Detect); Opiate Screen Urine Not Detected (Not Detect); Phencyclidine Screen Urine Not Detected (Not Detect)
[2021-02-02 11:25] LABS: ABG Refer to POC result
[2021-02-02 11:25] LABS: ABG Base Excess 8.8 mmol/L; ABG HCO3 32 mmol/L (22-26); ABG pCO2 42 mmHg (32-45); ABG pCO2 TC 43 mmHg (32-45); ABG pH 7.49 (7.35-7.45); ABG pH TC 7.49 (7.35-7.45); ABG pO2 74 mmHg (83-108)
[2021-02-02 11:29] LABS: Thyroid Stimulating Hormone 1.16 uIU/mL (0.32-4.0)
[2021-02-02] MEDS: hydrALAZINE HCl 10 MG TABLET PO (11:42)
[2021-02-02] MEDS: Isosorbide Dinitrate 5 MG TABLET PO (11:42)
[2021-02-02] MEDS: predniSONE 10 MG TABLET PO (11:43)
[2021-02-02] MEDS: Amiodarone HCL 200 MG TABLET PO (11:43)
[2021-02-02] MEDS: Magnesium Oxide 400 MG TABLET PO (11:43)
[2021-02-02] MEDS: vancomycin HCL 125 MG CAPSULE PO ×2 (11:43→18:33)
[2021-02-02] MEDS: Tacrolimus 1 MG CAPSULE 2 MG PO (11:43)
[2021-02-02] MEDS: 0.9 % Sodium Chloride Flush 3 ML SYRINGE IVFLUSH ×2 (11:44→15:55)
[2021-02-02] MEDS: Furosemide 40 MG/4 ML VIAL 20 MG IVPUSH (11:44)
--- NOTE | 2021-02-02 16:12 | P.PNIM_ITS ---
Subjective Subjective Date of Service: 02/02/21 Interval History: the patient was seen and evaluated this morning Laying in bed, feels tired and sleepy and fatigued, When you wake him up he is alert and able to answer questions but goes back to sleep quickly and nebs in between sentences as well, very weak and unable to support himself sitting up in the bed upon PT evaluation No reported bleeding or diarrhea overnight No reported other overnight events. No fever reported overnight Systemic review: No fever, chills but has generalized weakness No chest pain, palpitation No shortness of breath or coughing No abdominal pain, nausea or vomiting No urinary symptoms No any rash or wounds Physical Exam Vital Signs: Vital Signs: Last Vital Signs Temp 99.2 F 02/02/21 15:50 Pulse 88 02/02/21 15:50 Resp 24 H 02/02/21 15:50 BP 141/68 H 02/02/21 15:50 Pulse Ox 93 02/02/21 15:50 Body Mass Index 25.8 Const: Other: Constitutional : Alert with stimulation, oriented, mildly anxious Neck : Normal inspection, Supple Cardiovascular : RRR, S1 S2, trace bilateral lower extremity edema Respiratory : fair bilateral air entry, no crackles, wheezes or rhonchi Gastrointestinal: soft, lax, Normal bowel sounds, Non tender Skin : Warm/Dry, edema and right upper extremity extending above the elbow improved a little, left upper extremity dialysis fistula Muscular, right upper extremity weakness, cannot move the shoulder but able to move the wrist and elbow, significant swelling, no tenderness or erythema, in sling Neurological : Alert & oriented x3, No focal deficit Objective Data Current Medications Generic Name Dose Route Start Last Admin Trade Name [place] PRN Reason Stop Dose Admin Acetaminophen 650 mg 01/28/21 02:46 01/30/21 12:46 Acetaminophen 325 Mg Tablet PO 650 mg Q6H PRN Administration Pain, Mild (Pain Scale 1-3) Amiodarone HCl 200 mg 01/30/21 09:00 02/02/21 11:43 Amiodarone Hcl 200 Mg Tablet PO 200 mg DAILY YOLANDA Administration Divalproex Sodium 500 mg 01/28/21 10:15 02/02/21 11:44 Divalproex Sodium Er 500 Mg Tab.Er.24h PO Not Given DAILY YOLANDA Divalproex Sodium 1,000 mg 01/28/21 21:00 02/01/21 20:34 Divalproex Sodium Er 500 Mg Tab.Er.24h PO 1,000 mg BEDTIME YOLANDA Administration Docusate Sodium 100 mg 01/28/21 02:46 Docusate Sodium 100 Mg Capsule PO DAILY PRN Constipation Furosemide 20 mg 02/01/21 18:00 02/02/21 11:44 Furosemide 40 Mg/4 Ml Vial IVPUSH 20 mg BID@0900,1800 [facility] Administration Protocol Hydralazine HCl 10 mg 01/28/21 21:00 02/02/21 11:42 Hydralazine Hcl 10 Mg Tablet PO 10 mg BID [facility] Administration Protocol Isosorbide Dinitrate 5 mg 01/28/21 10:20 02/02/21 11:42 Isosorbide Dinitrate 5 Mg Tablet PO 5 mg BID [facility] Administration Protocol Magnesium Oxide 400 mg 01/28/21 21:00 02/02/21 11:43 Magnesium Oxide 400 Mg Tablet PO 400 mg BID [facility] Administration Medication 1 each 01/30/21 09:00 No Benzodiazepines MISCELLANE DAILY [facility] Metoprolol Succinate 50 mg 01/28/21 10:20 02/02/21 11:45 Metoprolol Succinate Er 50 Mg Tab.Er.24h PO Not Given BID [facility] Protocol Non-Formulary Medication 1 tab 01/28/21 10:30 Sod Phos Di, [place]-K Phos [place] [Phospha 250 Neutral] PO DAILY [facility] Omeprazole 20 mg 01/29/21 06:30 02/02/21 05:49 Omeprazole 20 Mg Capsule.Dr PO Not Given DAILY@0630 [facility] Ondansetron HCl 4 mg 01/28/21 02:46 Ondansetron Hcl 4 Mg/2 Ml Vial IVPUSH Q8H PRN Nausea and Vomiting Prednisone 10 mg 01/29/21 09:00 02/02/21 11:43 Prednisone 10 Mg Tablet PO 10 mg DAILY [facility] Administration Rivaroxaban 15 mg 01/29/21 18:00 02/01/21 19:00 Rivaroxaban 15 Mg Tablet PO 15 mg DAILY@1800 [facility] Administration Sodium Chloride 3 ml 01/28/21 08:00 02/02/21 15:55 0.9 % Sodium Chloride Flush 3 Ml Syringe IVFLUSH 3 ml QSHIFT [facility] Administration Tacrolimus 2 mg 01/28/21 10:20 02/02/21 11:43 Tacrolimus 1 Mg Capsule PO 2 mg BID YOLANDA Administration Vancomycin HCl 125 mg 01/28/21 01:00 02/02/21 11:43 Vancomycin Hcl 125 Mg Capsule PO 125 mg Q6H YOLANDA Administration Labs CBC & Chem 7: 02/02/21 05:22 02/02/21 09:14 Microbiology Microbiology Results: Microbiology 01/30/21 13:34 Blood - Venous Blood Culture - Preliminary No growth after 48 hours. 01/30/21 13:34 Blood - Venous Blood Culture - Preliminary No growth after 48 hours. Assessment and Plan (1) C. difficile diarrhea: Status: Acute (2) GI bleed: Status: Acute (3) Acute kidney injury superimposed on CKD: Status: Acute (4) Diarrhea: Status: Acute (5) CHF exacerbation: Status: Acute Assessment and Plan: this is a 60 yo m extensive hx as mentioned above who presents to the hospital with complaints of diarrhea as well as gi bleed C diff infection no recent abx use but recent hospital stay Diarrhea resolved Continue PO vanco date 02/22, started 01/28 Metabolic encephalopathy Secondary to infection, medications, hospital induced, hypoactive delerium Normal valproic acid level ABG showing no retention Avoid medications that might affect his mentation Recurrent reorientation, open of the curtains Change the diet to modified Fever One time, no recurrence could be secondary to C diff or aspiration Chest x-ray showing possible infiltrate versus fluid overload Negative urinalysis negative blood cultures and negative lactic acid Add incentive spirometry Hold on antibiotic until sources identified given C diff infection GI bleed occult stool blood positive 2/2 c.diff on anticoagulation which was restarted hgb stable Tolerating diet GI input appreciated, no need for intervention, can changed to p.o. PPI Continue omeprazole Acute systolic CHF exacerbation elevated BNP and edema hold IV Lasix b.i.d. Echo from november showed EF of 15-20% Cardiology input appreciated, Intake output ANA on CKD Improved back to baseline of 2.6 Monitor BMP Nephrology evaluation Right shoulder pain and swelling X-ray from 01/21 showing no fracture or dislocation Orthopedic team evaluated the patient, no intervention needed, put a sling ruled out DVT by US Repeated XR showing suspicious of glenoid fracture, orthopedic suggested outpatient follow-up. Keep arm elevated Persistent Afib underwent cardioversion on 01/14 Restarted Xarelto continue amiodarone and metoprolol DVT ppx Xarelto
--- NOTE | 2021-02-02 16:45 | P.CNNE_ITS ---
History of Present Illness Data of Consult Service Date: 02/02/21 Primary Care Provider: Unknown Physician HPI Reason for consult: Altered mental status 60-year-old man with a history of for acute renal failure, substance abuse atrial fibrillation and congestive heart failureRenal transplant and celllulitis, evaluated for altered mental status. Patient is unable to give any information. He is barely arousable and occasionally will follow one-step commands. Review of Systems Eyes: Eyes: Reports no additional eye complaints ENT: Reports system reviewed and no additional complaints, except as documented Cardiovascular: Cardiovascular: Reports no additional cardiovascular complaints Respiratory: Respiratory: Reports no additional respiratory complaints Gastrointestinal: Gastrointestinal: Reports no additional gastrointestinal complaints Genitourinary: Genitourinary: Reports no additional male genitourinary comp laints Musculoskeletal: Musculoskeletal: Reports no additional musculoskeletal complaints Integumentary/Breasts: Skin/Breast: Reports system reviewed and no additional complaints, except as docu Neurologic: Reports as per HPI Psychiatric: Psychiatric: Reports as per HPI Endocrine: Endocrine: Reports no additional endocrine complaints Hematologic/Lymphatic: Hematologic/Lymphatic: Reports no additional hematologic/lymphatic complaints Allergic/Immunologic: Allergic/Immunologic: Reports no additional allergic/immunologic complaints [facility] Past Medical History Medical History (Updated 02/02/21 @ 16:50 by Samantha Ramirez MD) Acute on chronic systolic heart failure Acute systolic (congestive) heart failure Afib Asthma Atrial fibrillation Atrial fibrillation with rapid ventricular response Bipolar disorder Cellulitis of left foot Congestive heart failure DVT (deep venous thrombosis) Essential hypertension Gout Heart failure with reduced ejection fraction Hip osteoarthritis History of seizures Obesity Pacemaker PAF (paroxysmal atrial fibrillation) Polysubstance abuse Renal failure, acute on chronic Renal transplant recipient Second degree heart block Subdural hematoma Syncope Thrombocytopenia Tobacco abuse Unilateral primary osteoarthritis, left knee Urinary bladder cancer Family History Family History Father Prostate cancer Mother No problems noted. Brother Cancer Surgical History Surgical History Abscess of arm, left H/O cardiac radiofrequency ablation History of cardiac catheterization History of removal of cyst History of removal of cyst Kidney replaced by transplant Kidney transplant recipient Social History Social History Household Members: Other Housing: Other Housing Other:: Rehab facility Do you presently have visiting nurse or other home services: No (Nurses at correction) Alcohol intake: never Smoking Status: Current every day smoker Tobacco Type: Cigarette Packs Per Day: 1 Cigarettes Per Day: 3 Patient Interested in Nicotine Replacement: Yes Second Hand Smoke Exposure: Yes Use of substances other than those prescribed or required for medical reasons: Yes Substance Use Type: Crack/Cocaine Substance Use Frequency: Monthly Currently Displaying Signs/Symptoms of Drug Intoxication Withdrawal: No Any prior treatment program specific to substance use: No Have you been hit, kicked, punched, or otherwise hurt by someone within the past year? If so, by whom?: No Do you feel safe in your current relationship?: No Current Relationship Is there a partner from a previous relationship who is making you feel unsafe now?: No Are you made to feel afraid or neglected: No Advance Directives: No Advance Directives Information Provided: Yes Advance Directives Date on File: 12/25/20 Do you have thoughts of harming others: None Do you have a plan to hurt others: No Plan Recently lost weight without trying: No Nutrition Risks: Poor intake 0-25% >4 days service: No Current occupational status: unemployed Meds Allergies Allergy/AdvReac Type Severity Reaction Status Date / Time indomethacin [Indocin] Allergy Unknown Unknown Verified 01/21/21 09:06 Active Medications: Current Medications Generic Name Dose Route Start Last Admin Trade Name Freq PRN Reason Stop Dose Admin Acetaminophen 650 mg 01/28/21 02:46 01/30/21 12:46 Acetaminophen 325 Mg Tablet PO 650 mg Q6H PRN Administration Pain, Mild (Pain Scale 1-3) Amiodarone HCl 200 mg 01/30/21 09:00 02/02/21 11:43 Amiodarone Hcl 200 Mg Tablet PO 200 mg DAILY YOLANDA Administration Divalproex Sodium 500 mg 01/28/21 10:15 02/02/21 11:44 Divalproex Sodium Er 500 Mg Tab.Er.24h PO Not Given DAILY YOLANDA Divalproex Sodium 1,000 mg 01/28/21 21:00 02/01/21 20:34 Divalproex Sodium Er 500 Mg Tab.Er.24h PO 1,000 mg BEDTIME YOLANDA Administration Docusate Sodium 100 mg 01/28/21 02:46 Docusate Sodium 100 Mg Capsule PO DAILY PRN Constipation Hydralazine HCl 10 mg 01/28/21 21:00 02/02/21 11:42 Hydralazine Hcl 10 Mg Tablet PO 10 mg BID [facility] Administration Protocol Dextrose/Sodium Chloride 1,000 mls @ 50 mls/hr 02/02/21 16:45 D5ns IVCONT .Q20H [facility] Isosorbide Dinitrate 5 mg 01/28/21 10:20 02/02/21 11:42 Isosorbide Dinitrate 5 Mg Tablet PO 5 mg BID [facility] Administration Protocol Magnesium Oxide 400 mg 01/28/21 21:00 02/02/21 11:43 Magnesium Oxide 400 Mg Tablet PO 400 mg BID [facility] Administration Medication 1 each 01/30/21 09:00 No Benzodiazepines MISCELLANE DAILY [facility] Metoprolol Succinate 50 mg 01/28/21 10:20 02/02/21 11:45 Metoprolol Succinate Er 50 Mg Tab.Er.24h PO Not Given BID [facility] Protocol Non-Formulary Medication 1 tab 01/28/21 10:30 Sod Phos Di, [place]-K Phos [place] [Phospha 250 Neutral] PO DAILY [facility] Omeprazole 20 mg 01/29/21 06:30 02/02/21 05:49 Omeprazole 20 Mg Capsule.Dr PO Not Given DAILY@0630 [facility] Ondansetron HCl 4 mg 01/28/21 02:46 Ondansetron Hcl 4 Mg/2 Ml Vial IVPUSH Q8H PRN Nausea and Vomiting Prednisone 10 mg 01/29/21 09:00 02/02/21 11:43 Prednisone 10 Mg Tablet PO 10 mg DAILY YOLANDA Administration Rivaroxaban 15 mg 01/29/21 18:00 02/01/21 19:00 Rivaroxaban 15 Mg Tablet PO 15 mg DAILY@1800 [facility] Administration Sodium Chloride 3 ml 01/28/21 08:00 02/02/21 15:55 0.9 % Sodium Chloride Flush 3 Ml Syringe IVFLUSH 3 ml QSHIFT [facility] Administration Tacrolimus 2 mg 01/28/21 10:20 02/02/21 11:43 Tacrolimus 1 Mg Capsule PO 2 mg BID YOLANDA Administration Vancomycin HCl 125 mg 01/28/21 01:00 02/02/21 11:43 Vancomycin Hcl 125 Mg Capsule PO 125 mg Q6H [facility] Administration Home Medications Medication Instructions Recorded Confirmed Last Taken Type amiodarone 1 tab PO QAM 01/28/21 01/28/21 Unknown History amiodarone 400 mg PO BID 01/28/21 01/28/21 Unknown History aripiprazole [Abilify] 30 mg PO DAILY 01/28/21 01/28/21 Unknown History divalproex 1 tab PO DAILY 01/28/21 01/28/21 Unknown History divalproex 2 tab PO BEDTIME 01/28/21 01/28/21 Unknown History furosemide [Lasix] 40 mg PO BID 01/28/21 01/28/21 Unknown History hydralazine [Apresoline] 10 mg PO BID 01/28/21 01/28/21 Unknown History isosorbide dinitrate 5 mg PO BID 01/28/21 01/28/21 Unknown History magnesium oxide 400 mg PO BID 01/28/21 01/28/21 Unknown History metoprolol succinate 1 tab PO BID 01/28/21 01/28/21 Unknown History omeprazole [Prilosec] 20 mg PO DAILY 01/28/21 01/28/21 Unknown History prednisone 10 mg PO DAILY 01/28/21 01/28/21 Unknown History rivaroxaban [Xarelto] 15 mg PO QPM 01/28/21 01/28/21 Unknown History sod phos di, mono-K phos mono 1 tab PO DAILY 01/28/21 01/28/21 Unknown History [Phospha 250 Neutral] tacrolimus 2 cap PO BID 01/28/21 01/28/21 Unknown History Physical Exam Vital Signs: Vital Signs: Last Vital Signs Temp 99.2 F 02/02/21 15:50 Pulse 88 02/02/21 15:50 Resp 24 H 02/02/21 15:50 BP 141/68 H 02/02/21 15:50 Pulse Ox 93 02/02/21 15:50 Body Mass Index 25.8 Const: General: no acute distress and well developed Nutritional Appearance: well nourished HENMT: Head: Yes normal to inspection, Yes normocephalic and Yes atraumatic Ears: hearing grossly normal bilaterally General nose exam: Normal external nose present Mouth: Normal oral and palatal mucosa present Eyes: General: appearance normal, both eyes and all related structures Alignment and Position: alignment normal Periorbital: periorbital findings normal Eyelids: Yes eyelids normal Conjunctivae: conjunctivae normal Sclerae: sclerae normal Corneas: corneas normal Pupils: Equal, round and reactive pupils present EOM: EOMs intact bilaterally Direct Ophthalmoscopy: normal light reflex Neck: Neck: Yes normal visual inspection, Yes full ROM and Yes no meningeal signs Thyroid: Thyroid normal Carotids: normal carotid upstroke and bounding pulses Chest: Chest palpation & inspection: normal inspection of the chest Resp: Effort & Inspection: normal respiratory effort Auscultation: clear to auscultation bilaterally Cardio: Rate: regular rate Rhythm: regular rhythm Heart sounds: S1 normal heart sound present and S2 normal heart sound present Peripheral pulses: Peripheral pulses 2+ throughout GI: Inspection: Yes normal to inspection Percussion: Yes normal to percussion Auscultation: normal bowel sounds Rectal Exam - Male: Yes deferred Back/Spine/Pelvis: Cervical Spine: normal cervical lordosis and cervical ROM normal Thoracic/Lumbar Spine: thoracic and lumbar spine normal to inspection Skin: General skin exam: no rashes or lesions noted Neuro: Other: Generally obtunded but arousable. He'll occasionally morning and answer a question. Occasionally will follow one-step command. He has a right angle of the mouth droop. It hurts him to move the neck. He is generally flaccid all over with flexor plantar responses General: no meningeal signs Cranial nerves: Yes Equal, round and reactive pupils present, Yes Bilaterally intact EOM present and Yes Nystagmus not present Speech: Other speech findings present (Neuro) Motor exam (neuro): no asterixis, Motor fasciculations not present and Motor abnormalities not present Sensory Exam: Bilaterally intact graphesthesia Deep tendon reflexes (DTR's): Right triceps reflex intensity grade: 0, Left triceps reflex intensity grade: 0, Rt Biceps (C5, C6): 0, Left biceps reflex intensity grade: 0, Right brachioradialis reflex intensity grade: 0, Left brachioradialis reflex intensity grade: 0, Right patellar reflex intensity grade: 0, Left patellar reflex intensity grade: 0, Right ankle reflex intensity grade: 0 and Left ankle reflex intensity grade: 0 Plantar Reflex Responses: downgoing: right, left and bilateral Pupils: Normal pupillary reactivity/response: bilateral Extrem: General: Yes normal to inspection, Yes normal exam except as noted and Yes no pedal edema Psych: Appearance: grossly normal Mental Status: mental status grossly normal Speech and movement: Normal speech and movement present and Clear speech present Affect: normal affect Attitude: cooperative Thought process: Normal thought process present Results Labs CBC & Chem 7: 02/02/21 05:22 02/02/21 09:14 Labs: Short CBC 02/02/21 Range/Units 05:22 WBC 8.0 (4.8-10.8) X10*3/uL Hgb 9.9 L (14.0-18.0) g/dl Hct 31.2 L (42-52) % Plt Count 74 L (160-400) X10*3/uL BMP 02/02/21 09:14 Sodium 140 Potassium 5.1 Chloride 104 Carbon Dioxide 25 BUN 66 H Creatinine 2.54 H Calcium 9.7 Microbiology Microbiology Results: Microbiology 01/30/21 13:34 Blood - Venous Blood Culture - Preliminary No growth after 48 hours. 01/30/21 13:34 Blood - Venous Blood Culture - Preliminary No growth after 48 hours. Assessment and Plan (1) Polysubstance abuse: Status: Acute (2) ANA (acute kidney injury): Status: Acute Nephrology recommendations (3) Encephalopathy: Status: Acute Check serum ammonia. Thyroid profile. EEG. MRI to rule out small acute stroke left hemisphere. Toxicology screen Procedures Date of Service Date of Service: 02/02/21
[2021-02-02 16:50] LABS: Alanine Aminotransferase 10 U/L (0-40); Albumin Level 2.3 g/dL (3.5-5.0); Alkaline Phosphatase 57 U/L (39-117); Aspartate Amino Transferase 18 U/L (5-37); Bilirubin Direct 0.2 mg/dL (0.0-0.5); Bilirubin Total 0.6 mg/dL (0.0-1.0); Total Protein 4.9 g/dL (6.5-8.0)
[2021-02-02 17:00] LABS: Ammonia 40 umol/L (13-55)
[2021-02-02] MEDS: Dextrose 5 % and 0.9 % NaCl 1,000 ML 50 ML IVCONT (17:07)
--- NOTE | 2021-02-02 17:59 | PM.PNNEP ---
Subjective Subjective Date of Service: 02/02/21 Principal diagnosis: Cardiomyopathy, atrial fibrillation. Interval history: Events noted. All recent data reviewed Physical Exam Vital Signs: Vital Signs: Last Vital Signs Temp 99.2 F 02/02/21 15:50 Pulse 88 02/02/21 15:50 Resp 24 H 02/02/21 15:50 BP 141/68 H 02/02/21 15:50 Pulse Ox 93 02/02/21 15:50 Body Mass Index 25.8 Const: General: no acute distress Neck: Neck: Yes supple Resp: Auscultation: diminished lung sounds Cardio: Jugular venous distension: no JVD GI: Palpation (GI): Soft to palpation Objective Data Labs CBC & Chem 7: 02/02/21 05:22 02/02/21 09:14 Labs: Laboratory Results - last 24 hr 02/02/21 02/02/21 02/02/21 05:22 09:14 10:07 WBC 8.0 RBC 3.42 L Hgb 9.9 L Hct 31.2 L MCV 91.2 MCH 28.9 MCHC 31.7 RDW 15.7 Plt Count 74 L MPV 10.1 Absolute Nucleated RBC 0.000 Nucleated RBC % (auto) 0.0 O2 Saturation ABG pH at Pt Temp ABG pH (Temp Correct) ABG pCO2 at Pt Temp ABG pCO2 (Temp Corrct ABG pO2 at Pt Temp ABG HCO3 ABG Base Excess (Actual) Sodium 140 Potassium 5.1 Chloride 104 Carbon Dioxide 25 Anion Gap 16 BUN 66 H Creatinine 2.54 H Estim Creat Clear Calc 31.1 Estimated GFR 26 Random Glucose 87 Calcium 9.7 Total Bilirubin 0.6 Direct Bilirubin 0.2 AST 18 D ALT 10 Alkaline Phosphatase 57 Ammonia Total Protein 4.9 L Albumin 2.3 L D TSH 1.16 Urine Opiates Screen Not Detected Ur Barbiturates Screen POSITIVE H Ur Phencyclidine Scrn Not Detected Ur Amphetamines Screen Not Detected U Benzodiazepines Scrn Not Detected Urine Cocaine Screen Not Detected U Marijuana (THC) Screen Not Detected 02/02/21 02/02/21 11:18 16:36 WBC RBC Hgb Hct MCV MCH MCHC RDW Plt Count MPV Absolute Nucleated RBC Nucleated RBC % (auto) O2 Saturation 92.0 ABG pH at Pt Temp 7.49 H ABG pH (Temp Correct) 7.49 H ABG pCO2 at Pt Temp 42 ABG pCO2 (Temp Corrct 43 ABG pO2 at Pt Temp 74 L ABG HCO3 32 H ABG Base Excess (Actual) 8.8 Sodium Potassium Chloride Carbon Dioxide Anion Gap BUN Creatinine Estim Creat Clear Calc Estimated GFR Random Glucose Calcium Total Bilirubin Direct Bilirubin AST ALT Alkaline Phosphatase Ammonia 40 Total Protein Albumin TSH Urine Opiates Screen Ur Barbiturates Screen Ur Phencyclidine Scrn Ur Amphetamines Screen U Benzodiazepines Scrn Urine Cocaine Screen U Marijuana (THC) Screen Microbiology Microbiology Results: Microbiology 01/30/21 13:34 Blood - Venous Blood Culture - Preliminary No growth after 48 hours. 01/30/21 13:34 Blood - Venous Blood Culture - Preliminary No growth after 48 hours. Assessment & Plan Assessment and plan (1) Acute kidney injury superimposed on CKD: Status: Acute Assessment and Plan: ANA in renal transplant due to compromise in renal perfusion Had been hypervolemic - Was getting diuresis Urine cocaine negative No change in immunosupression now Concur with rest of current management Labs AM. Shall follow up closely Time Spent With Patient Time: Total time spent is greater than 50% in coordination of care (as documented) at patient's floor/unit and/or counseling patient: Procedures Date of Service Date of Service: 02/02/21
[2021-02-02] MEDS: Rivaroxaban 15 MG TABLET PO (18:33)
[2021-02-02] MEDS: Furosemide 40 MG/4 ML VIAL IVPUSH (18:34)
[2021-02-02 19:11] LABS: D Dimer 895 NG/ML
[2021-02-02 19:24] LABS: Anion Gap 17 (12-20); Blood Urea Nitrogen 68 mg/dL (9-16); Calcium 9.6 mg/dL (8.4-10.2); Carbon Dioxide 25 mmol/L (22-29); Chloride 105 mmol/L (96-108); Creatinine Clr Calc Pharmacy 29.9; Estimated Glomerular Filt Rate 25; Glucose Random 117 mg/dL (60-115); Potassium 5.5 mmol/L (3.3-5.1); Sodium 141 mmol/L (135-145)
[2021-02-02 19:31] LABS: B Type Natriuretic Peptide 1265 pg/mL (<100)
--- NOTE | 2021-02-02 21:33 | MHC.PIE ---
.p - pt unresponsive to name calling. needed significant sternal rub to respond to eye opening PERRL 3+ upward gaze. requested pt to look at this rn , turned head slightly. asked pt if he knew where he was he replied no. reoriented without effect. right back to sleep. call placed to Dr. Bobo, 02/02/[address] head negative reviewed. meds reviewed & updated on inability to take po. seizure precautions in place with suction at bedside. request for bedside eval by md. orders pending. will come for bedside eval R facial droop. held po meds i dr. esquivel at bedside [id number]
[2021-02-02 22:07] LABS: Ammonia 36 umol/L (13-55)
[2021-02-02 22:25] LABS: Anion Gap 16 (12-20); Blood Urea Nitrogen 70 mg/dL (9-16); Calcium 9.6 mg/dL (8.4-10.2); Carbon Dioxide 26 mmol/L (22-29); Chloride 105 mmol/L (96-108); Creatinine Clr Calc Pharmacy 29.1; Estimated Glomerular Filt Rate 24; Glucose Random 111 mg/dL (60-115); Potassium 5.2 mmol/L (3.3-5.1); Sodium 142 mmol/L (135-145)
[2021-02-03] VITALS (8 sets, daily range): BP systolic 103–156; BP diastolic 45–93; PULSE 56–110; RESP 17–22; TEMP 36.7–38.2; O2SAT 92–98
[2021-02-03] MEDS: 0.9 % Sodium Chloride Flush 3 ML SYRINGE IVFLUSH ×3 (01:01→21:23)
[2021-02-03 06:28] LABS: Hematocrit 32.7 % (42-52); Hemoglobin 10.3 g/dl (14.0-18.0); Mean Corpuscular HGB Conc 31.5 g/dl (31.0-36.0); Mean Corpuscular Hemoglobin 29.1 pg (27.0-33.0); Mean Corpuscular Volume 92.4 fL (80-98); Mean Platelet Volume 10.6 fL (9.4-12.4); Red Blood Count 3.54 X10*6/uL (4.60-5.80); Red Cell Distribution Width 15.7 % (11.0-16.0); White Blood Count 8.2 X10*3/uL (4.8-10.8)
[2021-02-03 06:29] LABS: Platelet Count 83 X10*3/uL (160-400)
[2021-02-03 06:55] LABS: Anion Gap 16 (12-20); Blood Urea Nitrogen 71 mg/dL (9-16); Calcium 9.8 mg/dL (8.4-10.2); Carbon Dioxide 28 mmol/L (22-29); Chloride 106 mmol/L (96-108); Creatinine Clr Calc Pharmacy 29.6; Estimated Glomerular Filt Rate 24; Glucose Random 97 mg/dL (60-115); Potassium 5.1 mmol/L (3.3-5.1); Sodium 145 mmol/L (135-145)
[2021-02-03 07:42] LABS: Glucose, Whole Blood 91 mg/dL (60-115)
[2021-02-03 09:56] LABS: INTERNATIONAL NORM RATIO 1.4 (0.9-1.1); Prothrombin Time 16.8 SEC (10.8-13.0)
[2021-02-03 10:39] LABS: COVID-19 Test Negative (Negative)
--- NOTE | 2021-02-03 11:27 | HO.PM.IMPN ---
Subjective Subjective Date of Service: 02/03/21 Interval History: the patient was seen and evaluated this morning Laying in bed, very difficult to arouse and barely answers question go back to sleep very weak and unable to support himself sitting up in the bed No reported bleeding or diarrhea overnight No reported other overnight events. No fever reported overnight Systemic review: No fever, chills but has generalized weakness No chest pain, palpitation No shortness of breath or coughing No abdominal pain, nausea or vomiting No urinary symptoms No any rash or wounds Physical Exam Vital Signs: Vital Signs: Last Vital Signs Temp 98.2 F 02/03/21 11:02 Pulse 68 02/03/21 11:02 Resp 21 H 02/03/21 11:02 BP 152/69 H 02/03/21 11:02 Pulse Ox 94 02/03/21 11:02 Body Mass Index 25.8 Const: Other: Constitutional : Alert with verbal or physical stimulation, oriented to self but very weak and speech is unclear Neck : Normal inspection, Supple, elevated JVP, dry mouth and tongue Cardiovascular : RRR, S1 S2, trace bilateral lower extremity edema Respiratory : fair bilateral air entry, no crackles, wheezes or rhonchi Gastrointestinal: soft, lax, Normal bowel sounds, mild generalized tenderness Skin : Warm/Dry, edema and right upper extremity extending above the elbow improved a little, left upper extremity dialysis fistula Muscular, right upper extremity weakness, cannot move the shoulder but able to move the wrist and elbow, significant swelling, no tenderness or erythema, in sling Neurological : Alert with stimulation, oriented to self only, encephalopathic and difficult to arouse, No focal deficit Objective Data Current Medications Generic Name Dose Route Start Last Admin Trade Name Erikq PRN Reason Stop Dose Admin Acetaminophen 650 mg 01/28/21 02:46 01/30/21 12:46 Acetaminophen 325 Mg Tablet PO 650 mg Q6H PRN Administration Pain, Mild (Pain Scale 1-3) Divalproex Sodium 500 mg 01/28/21 10:15 02/02/21 11:44 Divalproex Sodium Er 500 Mg Tab.Er.24h PO Not Given DAILY YOLANDA Divalproex Sodium 1,000 mg 01/28/21 21:00 02/02/21 21:47 Divalproex Sodium Er 500 Mg Tab.Er.24h PO Not Given BEDTIME YOLANDA Docusate Sodium 100 mg 01/28/21 02:46 Docusate Sodium 100 Mg Capsule PO DAILY PRN Constipation Enoxaparin Sodium 80 mg 02/03/21 12:00 Enoxaparin Sodium 80 Mg/0.8 Ml Syringe SUBCUT Q24H [facility] Hydralazine HCl 10 mg 01/28/21 21:00 02/03/21 10:53 Hydralazine Hcl 10 Mg Tablet PO Not Given BID [facility] Protocol Isosorbide Dinitrate 5 mg 01/28/21 10:20 02/03/21 10:53 Isosorbide Dinitrate 5 Mg Tablet PO Not Given BID [facility] Protocol Magnesium Oxide 400 mg 01/28/21 21:00 02/03/21 10:53 Magnesium Oxide 400 Mg Tablet PO Not Given BID [facility] Medication 1 each 01/30/21 09:00 No Benzodiazepines MISCELLANE DAILY [facility] Metoprolol Succinate 50 mg 01/28/21 10:20 02/03/21 10:53 Metoprolol Succinate Er 50 Mg Tab.Er.24h PO Not Given BID [facility] Protocol Non-Formulary Medication 1 tab 01/28/21 10:30 Sod Phos Di, [place]-K Phos [place] [Phospha 250 Neutral] PO DAILY [facility] Omeprazole 20 mg 01/29/21 06:30 02/03/21 04:26 Omeprazole 20 Mg Capsule.Dr PO Not Given DAILY@0630 [facility] Ondansetron HCl 4 mg 01/28/21 02:46 Ondansetron Hcl 4 Mg/2 Ml Vial IVPUSH Q8H PRN Nausea and Vomiting Prednisone 10 mg 01/29/21 09:00 02/03/21 10:53 Prednisone 10 Mg Tablet PO Not Given DAILY [facility] Sodium Chloride 3 ml 01/28/21 08:00 02/03/21 01:01 0.9 % Sodium Chloride Flush 3 Ml Syringe IVFLUSH 3 ml QSHIFT [facility] Administration Tacrolimus 2 mg 01/28/21 10:20 02/03/21 10:53 Tacrolimus 1 Mg Capsule PO Not Given BID [facility] Vancomycin HCl 125 mg 01/28/21 01:00 02/03/21 07:20 Vancomycin Hcl 125 Mg Capsule PO Not Given Q6H [facility] Labs CBC & Chem 7: 02/03/21 05:26 02/03/21 05:26 Microbiology Microbiology Results: Microbiology 01/30/21 13:34 Blood - Venous Blood Culture - Preliminary No growth after 48 hours. 01/30/21 13:34 Blood - Venous Blood Culture - Preliminary No growth after 48 hours. Assessment and Plan (1) C. difficile diarrhea: Status: Acute (2) GI bleed: Status: Acute (3) Acute kidney injury superimposed on CKD: Status: Acute (4) Diarrhea: Status: Acute (5) CHF exacerbation: Status: Acute Assessment and Plan: this is a 60 yo m extensive hx as mentioned above who presents to the hospital with complaints of diarrhea as well as gi bleed C diff infection no recent abx use but recent hospital stay Diarrhea resolved Continue PO vanco date 03/24, started 01/28 Metabolic encephalopathy Secondary to infection, medications, hospital induced, hypoactive delerium Normal valproic acid level ABG showing no retention CT head negative for any acute findings Repeated CT chest abdomen pelvis showing nonspecific changes but no clear source of infection identified, reviewed the report Repeated blood cultures and urine cultures Neurology evaluated the patient, metabolic encephalopathy to check EEG and MRI MRI pending until tomorrow for the 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 to be around Avoid medications that might affect his mentation Recurrent reorientation, open of the curtains Change the diet to NPO today, get speech therapy evaluation Consider starting IV fluids Discussed with company controller as the patient at higher risk of being unable to protect his airways Fever One time, no recurrence could be secondary to C diff or aspiration Chest x-ray showing possible infiltrate versus fluid overload Negative urinalysis negative blood cultures and negative lactic acid Add incentive spirometry Hold on antibiotic until sources identified given C diff infection GI bleed occult stool blood positive 2/2 c.diff on anticoagulation which was restarted hgb stable Tolerating diet GI input appreciated, no need for intervention, can changed to p.o. PPI Continue omeprazole Acute systolic CHF exacerbation elevated BNP and edema hold IV Lasix b.i.d. Echo from november showed EF of 15-20% Cardiology input appreciated, Intake output ANA on CKD Improved back to baseline of 2.6 Monitor BMP Nephrology evaluation Right shoulder pain and swelling X-ray from 01/21 showing no fracture or dislocation Orthopedic team evaluated the patient, no intervention needed, put a sling ruled out DVT by US Repeated XR showing suspicious of glenoid fracture, orthopedic suggested outpatient follow-up. Keep arm elevated Persistent Afib underwent cardioversion on 01/14 Restarted Xarelto continue amiodarone and metoprolol DVT ppx Xarelto
--- NOTE | 2021-02-03 12:29 | P.PNNP_ITS ---
Subjective Subjective Date of Service: 02/03/21 Principal diagnosis: Cardiomyopathy, atrial fibrillation. Interval history: Events noted. All recent data reviewed Physical Exam Vital Signs: Vital Signs: Last Vital Signs Temp 98.2 F 02/03/21 11:02 Pulse 68 02/03/21 11:02 Resp 21 H 02/03/21 11:02 BP 152/69 H 02/03/21 11:02 Pulse Ox 94 02/03/21 11:02 Body Mass Index 25.8 Const: General: no acute distress Neck: Neck: Yes supple Resp: Auscultation: diminished lung sounds Cardio: Rate: regular rate GI: Palpation (GI): Soft to palpation Neuro: General: moves all extremities Objective Data Labs CBC & Chem 7: 02/03/21 05:02/03/21 05:26 Labs: Laboratory Results - last 24 hr 02/02/21 02/02/21 02/02/21 09:14 16:36 18:43 WBC RBC Hgb Hct MCV MCH MCHC RDW Plt Count MPV Absolute Nucleated RBC Nucleated RBC % (auto) PT INR D-Dimer 895 Sodium Potassium Chloride Carbon Dioxide Anion Gap BUN Creatinine Estim Creat Clear Calc Estimated GFR POC Glucose Random Glucose Calcium Total Bilirubin 0.6 Direct Bilirubin 0.2 AST 18 D ALT 10 Alkaline Phosphatase 57 Ammonia 40 B-Natriuretic Peptide Total Protein 4.9 L Albumin 2.3 L D COVID-19 (KARISSA) COVID-19 [employer] 02/02/21 02/02/21 02/02/21 18:43 18:43 21:50 WBC RBC Hgb Hct MCV MCH MCHC RDW Plt Count MPV Absolute Nucleated RBC Nucleated RBC % (auto) PT INR D-Dimer Sodium 141 142 Potassium 5.5 H 5.2 H Chloride 105 105 Carbon Dioxide 25 26 Anion Gap 17 16 BUN 68 H 70 H Creatinine 2.64 H 2.71 H Estim Creat Clear Calc 29.9 29.1 Estimated GFR 25 24 POC Glucose Random Glucose 117 H 111 Calcium 9.6 9.6 Total Bilirubin Direct Bilirubin AST ALT Alkaline Phosphatase Ammonia B-Natriuretic Peptide 1265 H Total Protein Albumin COVID-19 (KARISSA) COVID-19 [employer] 02/02/21 02/03/21 02/03/21 21:50 05:26 05:26 WBC 8.2 RBC 3.54 L Hgb 10.3 L Hct 32.7 L MCV 92.4 MCH 29.1 MCHC 31.5 RDW 15.7 Plt Count 83 L MPV 10.6 Absolute Nucleated RBC 0.000 Nucleated RBC % (auto) 0.0 PT INR D-Dimer Sodium 145 Potassium 5.1 Chloride 106 Carbon Dioxide 28 Anion Gap 16 BUN 71 H Creatinine 2.67 H Estim Creat Clear Calc 29.6 Estimated GFR 24 POC Glucose Random Glucose 97 Calcium 9.8 Total Bilirubin Direct Bilirubin AST ALT Alkaline Phosphatase Ammonia 36 B-Natriuretic Peptide Total Protein Albumin COVID-19 ([facility]ISSA) COVID-19 Clin Com 02/03/21 02/03/21 02/03/21 07:39 09:35 09:43 WBC RBC Hgb Hct MCV MCH MCHC RDW Plt Count MPV Absolute Nucleated RBC Nucleated RBC % (auto) PT 16.8 H Cancelled INR 1.4 H Cancelled D-Dimer Sodium Potassium Chloride Carbon Dioxide Anion Gap BUN Creatinine Estim Creat Clear Calc Estimated GFR POC Glucose 91 Random Glucose Calcium Total Bilirubin Direct Bilirubin AST ALT Alkaline Phosphatase Ammonia B-Natriuretic Peptide Total Protein Albumin COVID-19 ([facility]ISSA) COVID-19 Clin Com 02/03/21 10:10 WBC RBC Hgb Hct MCV MCH MCHC RDW Plt Count MPV Absolute Nucleated RBC Nucleated RBC % (auto) PT INR D-Dimer Sodium Potassium Chloride Carbon Dioxide Anion Gap BUN Creatinine Estim Creat Clear Calc Estimated GFR POC Glucose Random Glucose Calcium Total Bilirubin Direct Bilirubin AST ALT Alkaline Phosphatase Ammonia B-Natriuretic Peptide Total Protein Albumin COVID-19 (KARISSA) Negative COVID-19 Clin Com See Note Microbiology Microbiology Results: Microbiology 01/30/21 13:34 Blood - Venous Blood Culture - Preliminary No growth after 48 hours. 01/30/21 13:34 Blood - Venous Blood Culture - Preliminary No growth after 48 hours. Assessment & Plan Assessment and plan (1) Acute kidney injury superimposed on CKD: Status: Acute Assessment and Plan: ANA in renal transplant due to compromise in renal perfusion Had been hypervolemic - Was getting diuresis Urine cocaine negative No change in immunosupression now Concur with rest of current management Labs AM. Shall follow up closely Time Spent With Patient Time: Total time spent is greater than 50% in coordination of care (as documented) at patient's floor/unit and/or counseling patient: Procedures Date of Service Date of Service: 02/03/21
[2021-02-03] MEDS: Enoxaparin Sodium 80 MG/0.8 ML SYRINGE SUBCUT (12:44)
[2021-02-03 14:06] LABS: Glucose Urine UA NEG (NEG); Leukocyte Esterase Urine NEG (NEG); Nitrite Urine NEG (NEG); Specific Gravity - Urine 1.015 (1.005-1.025); Urine Blood TRACE (NEG); Urine Ketones 5 MG/DL (NEG); Urine Protein 2+ MG/DL (NEG-TRACE)
[2021-02-03 14:07] LABS: Appearance Urine CLEAR; Color Urine YELLOW
[2021-02-03 14:15] LABS: RBC Urine 0-2 /HPF (0); Squamous Epithelial Cell Urine TRACE /LPF; WBC Urine 0 /HPF (0-4)
--- NOTE | 2021-02-03 16:36 | MHC.CM.PN ---
Male 60 dx GIB cdiff DP is STR via BLS. Report provided to [facility]. Requested HCP. They will check records and fax if found. CM will continue to follow.
--- NOTE | 2021-02-03 17:32 | MHC.SLORD ---
Speech Language Pathology Order Status: Order for bedside dysphagia evaluation received. Coordinated with MD via [place]. Plan for eval tomorrow morning.
[2021-02-03] MEDS: methylPREDNISolone Sod Succ 40 MG/ML VIAL 20 MG IVPUSH (18:37)
[2021-02-03] MEDS: metroNIDAZOLE/NS 500 MG/100 ML PIGGYBACK 100 MG IV (18:38)
[2021-02-03] MEDS: cefTRIAXone sodium 1 GM in 0.9 % Sodium Chloride 50 ML IV (20:17)
[2021-02-03] MEDS: vancomycin HCL 500 MG in 0.9 % Sodium Chloride 100 ML 110 MG IV (20:18)
[2021-02-03] MEDS: Acyclovir Sodium 500 MG in Dextrose 5 % 100 ML 110 MG IV (21:19)
[2021-02-03] MEDS: Ampicillin Sodium 2 GM in 0.9 % Sodium Chloride 100 ML IV (21:23)
[2021-02-04] MEDS: metroNIDAZOLE/NS 500 MG/100 ML PIGGYBACK 100 MG IV ×3 (01:40→21:10)
[2021-02-04 03:53] VITALS: BP 128/42; PULSE 58; RESP 20; TEMP 36.9; O2SAT 92
[2021-02-04] MEDS: methylPREDNISolone Sod Succ 40 MG/ML VIAL 20 MG IVPUSH ×2 (06:01→18:18)
[2021-02-04 06:47] LABS: Hematocrit 32.2 % (42-52); Mean Corpuscular HGB Conc 31.1 g/dl (31.0-36.0); Mean Corpuscular Hemoglobin 28.8 pg (27.0-33.0); Mean Corpuscular Volume 92.8 fL (80-98); Mean Platelet Volume 10.9 fL (9.4-12.4); Red Blood Count 3.47 X10*6/uL (4.60-5.80); Red Cell Distribution Width 15.6 % (11.0-16.0); White Blood Count 6.8 X10*3/uL (4.8-10.8)
[2021-02-04 07:09] LABS: Platelet Count 90 X10*3/uL (160-400)
[2021-02-04 07:37] VITALS: BP 156/90; PULSE 52; RESP 20; TEMP 37.3; O2SAT 93
[2021-02-04 07:45] LABS: Anion Gap 15 (12-20); Blood Urea Nitrogen 82 mg/dL (9-16); Calcium 10.1 mg/dL (8.4-10.2); Carbon Dioxide 27 mmol/L (22-29); Chloride 110 mmol/L (96-108); Creatinine Clr Calc Pharmacy 28.1; Estimated Glomerular Filt Rate 23; Glucose Random 124 mg/dL (60-115); Potassium 5.4 mmol/L (3.3-5.1); Sodium 147 mmol/L (135-145)
[2021-02-04] MEDS: 0.9 % Sodium Chloride Flush 3 ML SYRINGE IVFLUSH ×2 (10:02→16:10)
[2021-02-04] MEDS: Dextrose 5 % 1,000 ML 100 ML IVCONT ×2 (10:02→21:00)
--- NOTE | 2021-02-04 10:21 | MHC.CM.PN ---
Male 60 DX CDIFF GI BLEED. Molst document received from Alicia/ [facility] staff. DP to STR vial BLS VS [facility]. CM will follow/
--- NOTE | 2021-02-04 10:27 | MHC.SLORD ---
Speech Language Pathology Order Status: Attempted bedside dysphagia eval. However, patient would wake only momentarily to repeated sternal rub, but fell back asleep. Patient would not remain awake. Due to lethargy, patient is not appropriate for PO trials at this time. If appropriate later today please contact [facility] DELIVERY CLERK by [place] or ext [phone]. Otherwise, plan to re-attempt eval tomorrow morning. MD and RN notified.
[2021-02-04 11:18] LABS: VBG Base Excess 5.3 mmol/L; VBG HCO3 29 mmol/L (22-26); VBG pCO2 40 mmHg; VBG pH 7.46 (7.32-7.43); VBG pO2 172 mmHg
[2021-02-04 11:18] LABS: Venous Blood Gas Refer to POC result
--- NOTE | 2021-02-04 11:18 | HO.PM.IMPN ---
Subjective Subjective Date of Service: 02/04/21 Interval History: unable to answer Physical Exam Vital Signs: Vital Signs: Last Vital Signs Temp 99.1 F 02/04/21 07:37 Pulse 52 02/04/21 07:37 Resp 20 02/04/21 07:37 BP 156/90 H 02/04/21 07:37 Pulse Ox 93 02/04/21 07:37 Body Mass Index 25.8 Other: Constitutional : obtunded, ill appearing, able to slur his name, but not answering questions Neck : Normal inspection, Supple, elevated JVP, dry mouth and tongue Cardiovascular : RRR, S1 S2, trace bilateral lower extremity edema Respiratory : fair bilateral air entry, no crackles, wheezes or rhonchi Gastrointestinal: soft, lax, Normal bowel sounds, mild generalized tenderness Skin : Warm/Dry, edema and right upper extremity extending above the elbow improved a little, left upper extremity dialysis fistula Muscular, right upper extremity weakness, cannot move the shoulder but able to move the wrist and elbow, significant swelling, no tenderness or erythema, in sling Neurological : oriented to self only, encephalopathic and difficult to arouse, No focal deficit Objective Data Current Medications Generic Name Dose Route Start Last Admin Trade Name Freq PRN Reason Stop Dose Admin Divalproex Sodium 500 mg 01/28/21 10:15 02/02/21 11:44 Divalproex Sodium Er 500 Mg Tab.Er.24h PO Not Given DAILY YOLANDA Divalproex Sodium 1,000 mg 01/28/21 21:00 02/02/21 21:47 Divalproex Sodium Er 500 Mg Tab.Er.24h PO Not Given BEDTIME YOLANDA Enoxaparin Sodium 80 mg 02/03/21 12:00 02/03/21 12:44 Enoxaparin Sodium 80 Mg/0.8 Ml Syringe SUBCUT 80 mg Q24H YOLANDA Administration Metronidazole 500 mg in 100 mls @ 100 mls/hr 02/03/21 18:00 02/04/21 02:40 Flagyl IV Infused Q8H YOLANDA Infusion Dextrose 1,000 mls @ 100 mls/hr 02/04/21 08:00 02/04/21 10:02 D5w IVCONT 100 mls/hr .Q10H YOLANDA Administration Medication 1 each 01/30/21 09:00 No Benzodiazepines MISCELLANE DAILY YOLANDA Methylprednisolone Sodium Succinate 20 mg 02/03/21 18:00 02/04/21 06:01 Methylprednisolone Sod Succ 40 Mg/Ml Vial IVPUSH 20 mg Q12H YOLANDA Administration Non-Formulary Medication 1 tab 01/28/21 10:30 Sod Phos Di, [place]-K Phos [place] [Phospha 250 Neutral] PO DAILY YOLANDA Sodium Chloride 3 ml 01/28/21 08:00 02/04/21 10:02 0.9 % Sodium Chloride Flush 3 Ml Syringe IVFLUSH 3 ml QSHIFT YOLANDA Administration Tacrolimus 2 mg 01/28/21 10:20 02/04/21 10:03 Tacrolimus 1 Mg Capsule PO Not Given BID YOLANDA Labs CBC & Chem 7: 02/04/21 05:13 02/04/21 05:13 Microbiology Microbiology Results: Microbiology 01/30/21 13:34 Blood - Venous Blood Culture - Preliminary No growth after 48 hours. 01/30/21 13:34 Blood - Venous Blood Culture - Preliminary No growth after 48 hours. Assessment and Plan (1) C. difficile diarrhea: Status: Acute (2) GI bleed: Status: Acute (3) Acute kidney injury superimposed on CKD: Status: Acute (4) Diarrhea: Status: Acute (5) CHF exacerbation: Status: Acute Assessment and Plan: this is a 60 yo m extensive hx as mentioned above who presents to the hospital with complaints of diarrhea as well as gi bleed C diff infection no recent abx use but recent hospital stay Diarrhea resolved received 7 days po vanco now only on IV flagyl because unable to swallow Metabolic encephalopathy Secondary to infection, medications, hospital induced, hypoactive delerium, hypernatremia Normal valproic acid level ABG showing no retention, check repeat d5w, monitor bmp CT head negative for any acute findings Repeated CT chest abdomen pelvis showing nonspecific changes but no clear source of infection identified Repeated blood cultures and urine cultures Neurology evaluated the patient, metabolic encephalopathy to check EEG, mri unremarkable Avoid medications that might affect his mentation plan for LP today low grade Fever could be secondary to C diff or aspiration Chest x-ray showing possible infiltrate versus fluid overload Negative urinalysis negative blood cultures and negative lactic acid Add incentive spirometry ID eval GI bleed occult stool blood positive 2/2 c.diff on anticoagulation which was restarted hgb stable Tolerating diet GI input appreciated, no need for intervention Continue omeprazole when taking po chronic systolic CHF exacerbation elevated BNP and edema hold IV Lasix b.i.d. Echo from november showed EF of 15-20% Cardiology input appreciated, Intake output ANA on CKD in setting of renal transplant Improved back to baseline of 2.6 Monitor BMP Nephrology following continue iv steroids prograf when taking po Right shoulder pain and swelling X-ray from 01/21 showing no fracture or dislocation Orthopedic team evaluated the patient, no intervention needed, put a sling ruled out DVT by US Repeated XR showing suspicious of glenoid fracture, orthopedic suggested outpatient follow-up. Keep arm elevated Persistent Afib underwent cardioversion on 01/14 normally on Xarelto - now on lovenox 80mg daily due to inability to swallow continue amiodarone and metoprolol when able to take po, can use intermittent iv lopressor as needed DVT ppx lveonox unable to contact any family members
[2021-02-04 11:38] VITALS: BP 136/76; PULSE 89; RESP 20; TEMP 37.2; O2SAT 90
--- NOTE | 2021-02-04 12:02 | PM.PNNEP ---
Subjective Subjective Date of Service: 02/04/21 Principal diagnosis: Cardiomyopathy, atrial fibrillation. Interval history: Unable to answer. Events noted. All recent data reviewed Physical Exam Vital Signs: Vital Signs: Last Vital Signs Temp 99.0 F 02/04/21 11:38 Pulse 89 02/04/21 11:38 Resp 20 02/04/21 11:38 BP 136/76 02/04/21 11:38 Pulse Ox 90 L 02/04/21 11:38 Body Mass Index 25.8 Const: General: lethargic Orientation/consciousness: lethargic Neck: Neck: Yes supple Resp: Auscultation: diminished lung sounds Cardio: Jugular venous distension: no JVD Rate: regular rate GI: Palpation (GI): Soft to palpation Neuro: Other: Lethargic Objective Data Labs CBC & Chem 7: 02/04/21 05:13 02/04/21 05:13 Labs: Laboratory Results - last 24 hr 02/03/21 02/04/21 02/04/21 12:51 05:13 05:13 WBC 6.8 RBC 3.47 L Hgb 10.0 L Hct 32.2 L MCV 92.8 MCH 28.8 MCHC 31.1 RDW 15.6 Plt Count 90 L MPV 10.9 Absolute Nucleated RBC 0.000 Nucleated RBC % (auto) 0.0 VBG pH VBG pCO2 VBG pO2 VBG HCO3 VBG O2 Saturation VBG Base Excess Sodium 147 H Potassium 5.4 H Chloride 110 H Carbon Dioxide 27 Anion Gap 15 BUN 82 H* Creatinine 2.81 H Estim Creat Clear Calc 28.1 Estimated GFR 23 Random Glucose 124 H Calcium 10.1 Urine Color YELLOW Urine Appearance CLEAR Urine pH 6.0 Ur Specific [place] 1.015 Urine Protein 2+ H Urine Glucose (UA) NEG Urine Ketones 5 Urine Blood TRACE Urine Nitrite NEG Ur Leukocyte Esterase NEG Urine RBC 0-2 Urine WBC 0 Ur Squamous Epith Cells TRACE Urine Bacteria NONE 02/04/21 11:11 WBC RBC Hgb Hct MCV MCH MCHC RDW Plt Count MPV Absolute Nucleated RBC Nucleated RBC % (auto) VBG pH 7.46 H VBG pCO2 40 VBG pO2 172 VBG HCO3 29 H VBG O2 Saturation 99.0 VBG Base Excess 5.3 Sodium Potassium Chloride Carbon Dioxide Anion Gap BUN Creatinine Estim Creat Clear Calc Estimated GFR Random Glucose Calcium Urine Color Urine Appearance Urine pH Ur Specific [place] Urine Protein Urine Glucose (UA) Urine Ketones Urine Blood Urine Nitrite Ur Leukocyte Esterase Urine RBC Urine WBC Ur Squamous Epith Cells Urine Bacteria Microbiology Microbiology Results: Microbiology 02/03/21 09:43 Blood - Venous Blood Culture - Preliminary No growth after 24 hours. 02/03/21 09:43 Blood - Venous Blood Culture - Preliminary No growth after 24 hours. 01/30/21 13:34 Blood - Venous Blood Culture - Preliminary No growth after 48 hours. 01/30/21 13:34 Blood - Venous Blood Culture - Preliminary No growth after 48 hours. Assessment & Plan Assessment and plan (1) Acute kidney injury superimposed on CKD: Status: Acute Assessment and Plan: ANA in renal transplant due to compromise in renal perfusion Had been hypervolemic - Was getting diuresis Urine cocaine negative No change in immunosupression now Needs EEG/ LP; Work up neg todate for AMS Concur with rest of current management Labs AM. Shall follow up closely Time Spent With Patient Time: Total time spent is greater than 50% in coordination of care (as documented) at patient's floor/unit and/or counseling patient: Procedures Date of Service Date of Service: 02/04/21
[2021-02-04 13:56] VITALS: BMI 25.8
[2021-02-04 14:09] LABS: CSF Appearance Clear, Colorless; CSF Tube # 2
[2021-02-04 14:25] LABS: Glucose CSF 76 mg/dL; Total Protein CSF 69.1 mg/dL (15-45)
[2021-02-04 14:45] LABS: Appearance CSF CLEAR; CSF Tube # 4
[2021-02-04 14:46] LABS: CSF Monos 0 %; CSF Other Cells % 0 %; Color CSF COLORLESS; Lymphocytes CSF 100 %; Neutrophils CSF 0 %; Red Blood Cell CSF 54 MM*3; White Blood Cell CSF 29 MM*3
[2021-02-04 15:33] VITALS: BP 101/55; PULSE 74; RESP 16; TEMP 36.6; O2SAT 91
[2021-02-04 19:17] VITALS: BP 156/80; PULSE 78; RESP 24; TEMP 36.6; O2SAT 95
[2021-02-04 19:29] LABS: Anion Gap 16 (12-20); Blood Urea Nitrogen 100 mg/dL (9-16); Calcium 9.8 mg/dL (8.4-10.2); Carbon Dioxide 27 mmol/L (22-29); Chloride 109 mmol/L (96-108); Estimated Glomerular Filt Rate 22; Glucose Random 194 mg/dL (60-115); Potassium 5.2 mmol/L (3.3-5.1); Sodium 147 mmol/L (135-145)
[2021-02-04 23:52] VITALS: BP 112/63; PULSE 82; RESP 18; TEMP 36.4; O2SAT 94
--- NOTE | 2021-02-05 | EEG_ITS ---
The waking background activity consists of low voltage fast frequencies seen diffusely, intermixed with a low voltage posterior 7 hertz theta. Photic stimulation is without activation. Hyperventilation was omitted. IMPRESSION: This EEG is considered mildly abnormal due to mild background slowing consistent with a mild diffuse encephalopathic process. No epileptiform discharges seen. MD ERIKA Orta/DARRYL / [id number]
[2021-02-05] MEDS: 0.9 % Sodium Chloride Flush 3 ML SYRINGE IVFLUSH ×2 (00:50→22:38)
[2021-02-05 03:18] VITALS: BP 148/85; PULSE 97; RESP 18; TEMP 36.4; O2SAT 98
[2021-02-05] MEDS: methylPREDNISolone Sod Succ 40 MG/ML VIAL 20 MG IVPUSH ×2 (05:33→17:36)
[2021-02-05] MEDS: metroNIDAZOLE/NS 500 MG/100 ML PIGGYBACK 100 MG IV ×3 (05:35→20:18)
[2021-02-05 06:54] LABS: Hematocrit 34.2 % (42-52); Hemoglobin 10.6 g/dl (14.0-18.0); Mean Corpuscular Hemoglobin 28.7 pg (27.0-33.0); Mean Corpuscular Volume 92.7 fL (80-98); Mean Platelet Volume 11.2 fL (9.4-12.4); Red Blood Count 3.69 X10*6/uL (4.60-5.80); Red Cell Distribution Width 15.2 % (11.0-16.0); White Blood Count 5.7 X10*3/uL (4.8-10.8)
[2021-02-05 07:17] LABS: Alanine Aminotransferase 13 U/L (0-40); Albumin Level 2.2 g/dL (3.5-5.0); Alkaline Phosphatase 61 U/L (39-117); Anion Gap 16 (12-20); Aspartate Amino Transferase 16 U/L (5-37); Bilirubin Direct < 0.2 mg/dL (0.0-0.5); Bilirubin Total 0.3 mg/dL (0.0-1.0); Blood Urea Nitrogen 103 mg/dL (9-16); Calcium 9.9 mg/dL (8.4-10.2); Carbon Dioxide 26 mmol/L (22-29); Chloride 107 mmol/L (96-108); Creatinine Clr Calc Pharmacy 29.2; Estimated Glomerular Filt Rate 24; Glucose Fasting 230 mg/dL (60-99); Potassium 5.4 mmol/L (3.3-5.1); Sodium 144 mmol/L (135-145); Total Protein 4.8 g/dL (6.5-8.0)
[2021-02-05 07:43] LABS: Platelet Count 68 X10*3/uL (160-400)
[2021-02-05 08:00] VITALS: BP 136/98; PULSE 79; RESP 20; TEMP 36.3; O2SAT 96
--- NOTE | 2021-02-05 10:20 | PM.PNNEP ---
Subjective Subjective Date of Service: 02/05/21 Principal diagnosis: Cardiomyopathy, atrial fibrillation. Interval history: Events noted. All recent data reviewed. Much brighter. Getting EEG Physical Exam Vital Signs: Vital Signs: Last Vital Signs Temp 97.4 F 02/05/21 08:00 Pulse 79 02/05/21 08:00 Resp 20 02/05/21 08:00 BP 136/98 H 02/05/21 08:00 Pulse Ox 96 02/05/21 08:00 Body Mass Index 25.8 Const: General: no acute distress Neck: Neck: Yes supple Resp: Auscultation: diminished lung sounds Cardio: Rate: regular rate GI: Palpation (GI): Soft to palpation Neuro: General: moves all extremities Objective Data Labs CBC & Chem 7: 02/05/21 06:37 02/05/21 06:37 Labs: Laboratory Results - last 24 hr 02/04/21 02/04/21 02/04/21 11:11 12:50 12:50 WBC RBC Hgb Hct MCV MCH MCHC RDW Plt Count MPV Absolute Nucleated RBC Nucleated RBC % (auto) VBG pH 7.46 H VBG pCO2 40 VBG pO2 172 VBG HCO3 29 H VBG O2 Saturation 99.0 VBG Base Excess 5.3 Sodium Potassium Chloride Carbon Dioxide Anion Gap BUN Creatinine Estim Creat Clear Calc Estimated GFR Random Glucose Fasting Glucose Calcium Total Bilirubin Direct Bilirubin AST ALT Alkaline Phosphatase Total Protein Albumin CSF Tube Number 2 4 CSF Volume 2.0 CSF Appearance CLEAR CSF Color COLORLESS CSF WBC 29 H* CSF RBC 54 CSF Neutrophils 0 CSF Lymphocytes 100 CSF Monocytes % 0 CSF Other Cells % 0 CSF Appearance (b) Clear, Colorless CSF Glucose 76 CSF Total Protein 69.1 H CSF Cryptococcus Ag CSF Herpes I DNA (PCR) CSF Herpes II DNA (PCR) CSF Mening/Enceph PCR Body Source 02/04/21 02/04/21 02/04/21 12:50 12:50 12:50 WBC RBC Hgb Hct MCV MCH MCHC RDW Plt Count MPV Absolute Nucleated RBC Nucleated RBC % (auto) VBG pH VBG pCO2 VBG pO2 VBG HCO3 VBG O2 Saturation VBG Base Excess Sodium Potassium Chloride Carbon Dioxide Anion Gap BUN Creatinine Estim Creat Clear Calc Estimated GFR Random Glucose Fasting Glucose Calcium Total Bilirubin Direct Bilirubin AST ALT Alkaline Phosphatase Total Protein Albumin CSF Tube Number CSF Volume CSF Appearance CSF Color CSF WBC CSF RBC CSF Neutrophils CSF Lymphocytes CSF Monocytes % CSF Other Cells % CSF Appearance (b) CSF Glucose CSF Total Protein CSF Cryptococcus Ag SEE NOTE CSF Herpes I DNA (PCR) Cancelled CSF Herpes II DNA (PCR) Cancelled CSF Mening/Enceph PCR SEE NOTE Body Source Cancelled 02/04/21 02/05/21 02/05/21 18:46 06:37 06:37 WBC 5.7 RBC 3.69 L Hgb 10.6 L Hct 34.2 L MCV 92.7 MCH 28.7 MCHC 31.0 RDW 15.2 Plt Count 68 L MPV 11.2 Absolute Nucleated RBC 0.000 Nucleated RBC % (auto) 0.0 VBG pH VBG pCO2 VBG pO2 VBG HCO3 VBG O2 Saturation VBG Base Excess Sodium 147 H 144 Potassium 5.2 H 5.4 H Chloride 109 H 107 Carbon Dioxide 27 26 Anion Gap 16 16 BUN 100 H* D 103 H* Creatinine 2.92 H 2.70 H Estim Creat Clear Calc 27.0 29.2 Estimated GFR 22 24 Random Glucose 194 H D Fasting Glucose 230 H Calcium 9.8 9.9 Total Bilirubin 0.3 Direct Bilirubin < 0.2 AST 16 ALT 13 Alkaline Phosphatase 61 Total Protein 4.8 L Albumin 2.2 L CSF Tube Number CSF Volume CSF Appearance CSF Color CSF WBC CSF RBC CSF Neutrophils CSF Lymphocytes CSF Monocytes % CSF Other Cells % CSF Appearance (b) CSF Glucose CSF Total Protein CSF Cryptococcus Ag CSF Herpes I DNA (PCR) CSF Herpes II DNA (PCR) CSF Mening/Enceph PCR Body Source Microbiology Microbiology Results: Microbiology 02/04/21 12:50 Cerebrospinal Fluid Gram Stain - Final 02/04/21 12:50 Cerebrospinal Fluid CSF Examination - Final 02/04/21 12:50 Cerebrospinal Fluid Fluid Description - Final 02/04/21 12:50 Cerebrospinal Fluid CSF Culture - Preliminary No growth after 1 day 01/30/21 13:34 Blood - Venous Blood Culture - Final No growth after 5 days. 01/30/21 13:34 Blood - Venous Blood Culture - Final No growth after 5 days. 02/03/21 09:43 Blood - Venous Blood Culture - Preliminary No growth after 24 hours. 02/03/21 09:43 Blood - Venous Blood Culture - Preliminary No growth after 24 hours. Assessment & Plan Assessment and plan (1) Acute kidney injury superimposed on CKD: Status: Acute Assessment and Plan: KI in renal transplant due to compromise in renal perfusion Had been hypervolemic - Was getting diuresis Urine cocaine negative No change in immunosupression now Getting EEG; Work up neg todate for AMS ? Has auto immune encephalitis Concur with rest of current management Labs AM. Shall follow up closely Time Spent With Patient Time: Total time spent is greater than 50% in coordination of care (as documented) at patient's floor/unit and/or counseling patient: Procedures Date of Service Date of Service: 02/05/21
--- NOTE | 2021-02-05 10:24 | MHC.SLORD ---
Speech Language Pathology Order Status: Attempted bedside dysphagia evaluation. No change in mentation. Not responsive to sternal rub, change in positioning, and verbal stimuli. Unable to wake patient for PO trials. BANANA ROOM CUTTER will continue to follow.
[2021-02-05] MEDS: Dextrose 5 % and 0.45 % NaCl 1,000 ML 80 ML IVCONT ×2 (10:25→22:37)
[2021-02-05 11:28] VITALS: BP 143/79; PULSE 85; RESP 20; O2SAT 97
--- NOTE | 2021-02-05 12:03 | HO.PM.IMPN ---
Subjective Subjective Date of Service: 02/05/21 Interval History: mopre alert today, but not coherent Cardiovascular Cardiovascular: Reports no additional cardiovascular complaints Gastrointestinal Gastrointestinal: Reports no additional gastrointestinal complaints Physical Exam Vital Signs: Vital Signs: Last Vital Signs Temp 97.4 F 02/05/21 08:00 Pulse 85 02/05/21 11:28 Resp 20 02/05/21 11:28 BP 143/79 H 02/05/21 11:28 Pulse Ox 97 02/05/21 11:28 Body Mass Index 25.8 General: more alert but incoherent, disoriented, Resp: CTA bilateral CVS: S1,S2,RRR GI: soft, non tender, non distended Neuro: motor grossly intact Psych: impaired insight Objective Data Current Medications Generic Name Dose Route Start Last Admin Trade Name Freq PRN Reason Stop Dose Admin Divalproex Sodium 500 mg 01/28/21 10:15 02/02/21 11:44 Divalproex Sodium Er 500 Mg Tab.Er.24h PO Not Given DAILY YOLANDA Divalproex Sodium 1,000 mg 01/28/21 21:00 02/02/21 21:47 Divalproex Sodium Er 500 Mg Tab.Er.24h PO Not Given BEDTIME YOLANDA Enoxaparin Sodium 80 mg 02/03/21 12:00 02/04/21 12:53 Enoxaparin Sodium 80 Mg/0.8 Ml Syringe SUBCUT Not Given Q24H YOLANDA Metronidazole 500 mg in 100 mls @ 100 mls/hr 02/04/21 14:00 02/05/21 10:24 Flagyl IV Infused Q8H YOLANDA Infusion Dextrose/Sodium Chloride 1,000 mls @ 80 mls/hr 02/05/21 08:00 02/05/21 10:25 D51/2ns IVCONT 80 mls/hr .[id number] YOLANDA Administration Medication 1 each 01/30/21 09:00 No Benzodiazepines MISCELLANE DAILY YOLANDA Methylprednisolone Sodium Succinate 20 mg 02/03/21 18:00 02/05/21 05:33 Methylprednisolone Sod Succ 40 Mg/Ml Vial IVPUSH 20 mg Q12H YOLANDA Administration Non-Formulary Medication 1 tab 01/28/21 10:30 Sod Phos Di, [place]-K Phos [place] [Phospha 250 Neutral] PO DAILY YOLANDA Sodium Chloride 3 ml 01/28/21 08:00 02/05/21 10:24 0.9 % Sodium Chloride Flush 3 Ml Syringe IVFLUSH Not Given QSHIFT YOLANDA Tacrolimus 2 mg 01/28/21 10:20 02/05/21 10:24 Tacrolimus 1 Mg Capsule PO Not Given BID YOLANDA Labs CBC & Chem 7: 02/05/21 06:37 02/05/21 06:37 Microbiology Microbiology Results: Microbiology 02/03/21 09:43 Blood - Venous Blood Culture - Preliminary No growth after 48 hours. 02/03/21 09:43 Blood - Venous Blood Culture - Preliminary No growth after 48 hours. 02/04/21 12:50 Cerebrospinal Fluid Gram Stain - Final 02/04/21 12:50 Cerebrospinal Fluid CSF Examination - Final 02/04/21 12:50 Cerebrospinal Fluid Fluid Description - Final 02/04/21 12:50 Cerebrospinal Fluid CSF Culture - Preliminary No growth after 1 day 01/30/21 13:34 Blood - Venous Blood Culture - Final No growth after 5 days. 01/30/21 13:34 Blood - Venous Blood Culture - Final No growth after 5 days. Assessment and Plan (1) C. difficile diarrhea: Status: Acute (2) GI bleed: Status: Acute (3) Acute kidney injury superimposed on CKD: Status: Acute (4) Diarrhea: Status: Acute (5) CHF exacerbation: Status: Acute Assessment and Plan: this is a 60 yo m extensive hx as mentioned above who presents to the hospital with complaints of diarrhea as well as gi bleed C diff infection no recent abx use but recent hospital stay Diarrhea resolved received 7 days po vanco now only on IV flagyl because unable to swallow Metabolic encephalopathy ddx includes: Secondary to infection, medications, hospital induced, hypoactive delerium, hypernatremia Normal valproic acid level ABG showing no retention iimprovement today change to d51/2ns CT head negative for any acute findings Repeated CT chest abdomen pelvis showing nonspecific changes but no clear source of infection identified Repeated blood cultures and urine cultures ngtd Neurology evaluated the patient, metabolic encephalopathy to check EEG, mri unremarkable Avoid medications that might affect his mentation LP with lymphocytes and protein, meningitis/encephalitis panel negative low grade Fever could be secondary to C diff or aspiration Chest x-ray showing possible infiltrate versus fluid overload Negative urinalysis negative blood cultures and negative lactic acid Add incentive spirometry ID eval - no abx for now GI bleed occult stool blood positive 2/2 c.diff on anticoagulation which was restarted hgb stable Tolerating diet GI input appreciated, no need for intervention Continue omeprazole when taking po chronic systolic CHF exacerbation elevated BNP and edema hold IV Lasix b.i.d. Echo from november showed EF of 15-20% Cardiology input appreciated, Intake output ANA on CKD in setting of renal transplant Improved back to baseline of 2.6 Monitor BMP Nephrology following continue iv steroids prograf when taking po Right shoulder pain and swelling X-ray from 01/21 showing no fracture or dislocation Orthopedic team evaluated the patient, no intervention needed, put a sling ruled out DVT by US Repeated XR showing suspicious of glenoid fracture, orthopedic suggested outpatient follow-up. Keep arm elevated Persistent Afib underwent cardioversion on 01/14 normally on Xarelto - now on lovenox 80mg daily due to inability to swallow continue amiodarone and metoprolol when able to take po, can use intermittent iv lopressor as needed DVT ppx lveonox unable to contact any family members
[2021-02-05] MEDS: Enoxaparin Sodium 80 MG/0.8 ML SYRINGE SUBCUT (13:26)
[2021-02-05 16:00] VITALS: BP 130/98; PULSE 91; RESP 19; TEMP 35.9; O2SAT 97
[2021-02-05 19:45] VITALS: BP 139/81; PULSE 83; RESP 19; TEMP 37.1; O2SAT 97
[2021-02-05 21:22] LABS: Lyme (B. burgdorferi) PCR NOT DETECTED (NOT DETECTED)
--- NOTE | 2021-02-05 22:46 | P.CNID_ITS ---
History of Present Illness Data of Consult Service Date: 02/05/21 Requesting physician: Rolando Jeffrey Primary Care Provider: Unknown Physician HPI Reason for consult: diarrhea He presnrts with diarrhea several times a day watery Cdiff pending Review of Systems Review of Systems: Yes all other systems are reviewed and are negative [facility] Past Medical History Medical History Acute on chronic systolic heart failure Acute systolic (congestive) heart failure Afib Asthma Atrial fibrillation Atrial fibrillation with rapid ventricular response Bipolar disorder Cellulitis of left foot Congestive heart failure DVT (deep venous thrombosis) Essential hypertension Gout Heart failure with reduced ejection fraction Hip osteoarthritis History of seizures Obesity Pacemaker PAF (paroxysmal atrial fibrillation) Polysubstance abuse Renal failure, acute on chronic Renal transplant recipient Second degree heart block Subdural hematoma Syncope Thrombocytopenia Tobacco abuse Unilateral primary osteoarthritis, left knee Urinary bladder cancer Family History Family History Father Prostate cancer Mother No problems noted. Brother Cancer Surgical History Surgical History Abscess of arm, left H/O cardiac radiofrequency ablation History of cardiac catheterization History of removal of cyst History of removal of cyst Kidney replaced by transplant Kidney transplant recipient Social History Social History Household Members: Other Housing: Other Housing Other:: Rehab facility Do you presently have visiting nurse or other home services: No (Nurses at senior care) Alcohol intake: never Cigarette Packs Per Day: 1 Cigarettes Per Day: 3 Second Hand Smoke Exposure: Yes Substance Use Type: Crack/Cocaine Advance Directives Date on File: 12/25/20 service: No Current occupational status: unemployed Meds Allergies Allergy/AdvReac Type Severity Reaction Status Date / Time indomethacin [Indocin] Allergy Unknown Unknown Verified 01/21/21 09:06 Active Medications: Current Medications Generic Name Dose Route Start Last Admin Trade Name Freq PRN Reason Stop Dose Admin Divalproex Sodium 500 mg 01/28/21 10:15 02/02/21 11:44 Divalproex Sodium Er 500 Mg Tab.Er.24h PO Not Given DAILY YOLANDA Divalproex Sodium 1,000 mg 01/28/21 21:00 02/02/21 21:47 Divalproex Sodium Er 500 Mg Tab.Er.24h PO Not Given BEDTIME YOLANDA Enoxaparin Sodium 80 mg 02/03/21 12:00 02/05/21 13:26 Enoxaparin Sodium 80 Mg/0.8 Ml Syringe SUBCUT 80 mg Q24H YOLANDA Administration Metronidazole 500 mg in 100 mls @ 100 mls/hr 02/04/21 14:00 02/05/21 21:42 Flagyl IV Infused Q8H YOLANDA Infusion Dextrose/Sodium Chloride 1,000 mls @ 80 mls/hr 02/05/21 08:00 02/05/21 22:37 D51/2ns IVCONT 80 mls/hr .[id number] YOLANDA Administration Medication 1 each 01/30/21 09:00 No Benzodiazepines MISCELLANE DAILY [facility] Methylprednisolone Sodium Succinate 20 mg 02/03/21 18:00 02/05/21 17:36 Methylprednisolone Sod Succ 40 Mg/Ml Vial IVPUSH 20 mg Q12H YOLANDA Administration Non-Formulary Medication 1 tab 01/28/21 10:30 Sod Phos Di, [place]-K Phos Ada [Phospha 250 Neutral] PO DAILY [facility] Sodium Chloride 3 ml 01/28/21 08:00 02/05/21 22:38 0.9 % Sodium Chloride Flush 3 Ml Syringe IVFLUSH 3 ml QSHIFT YOLANDA Administration Tacrolimus 2 mg 01/28/21 10:20 02/05/21 20:18 Tacrolimus 1 Mg Capsule PO Not Given BID [facility] Home Medications Medication Instructions Recorded Confirmed Last Taken Type amiodarone 1 tab PO QAM 01/28/21 01/28/21 Unknown History amiodarone 400 mg PO BID 01/28/21 01/28/21 Unknown History aripiprazole [Abilify] 30 mg PO DAILY 01/28/21 01/28/21 Unknown History divalproex 1 tab PO DAILY 01/28/21 01/28/21 Unknown History divalproex 2 tab PO BEDTIME 01/28/21 01/28/21 Unknown History furosemide [Lasix] 40 mg PO BID 01/28/21 01/28/21 Unknown History hydralazine [Apresoline] 10 mg PO BID 01/28/21 01/28/21 Unknown History isosorbide dinitrate 5 mg PO BID 01/28/21 01/28/21 Unknown History magnesium oxide 400 mg PO BID 01/28/21 01/28/21 Unknown History metoprolol succinate 1 tab PO BID 01/28/21 01/28/21 Unknown History omeprazole [Prilosec] 20 mg PO DAILY 01/28/21 01/28/21 Unknown History prednisone 10 mg PO DAILY 01/28/21 01/28/21 Unknown History rivaroxaban [Xarelto] 15 mg PO QPM 01/28/21 01/28/21 Unknown History sod phos di, mono-K phos mono 1 tab PO DAILY 01/28/21 01/28/21 Unknown History [Phospha 250 Neutral] tacrolimus 2 cap PO BID 01/28/21 01/28/21 Unknown History Physical Exam Vital Signs: Vital Signs: Last Vital Signs Temp 98.7 F 02/05/21 19:45 Pulse 83 02/05/21 19:45 Resp 19 02/05/21 19:45 BP 139/81 02/05/21 19:45 Pulse Ox 97 02/05/21 19:45 Body Mass Index 25.8 Const: General: cooperative HENMT: Head: Yes normal to inspection General nose exam: Normal external nose present GI: Palpation (GI): Soft to palpation and not firm Results Labs CBC & Chem 7: 02/13/21 05:54 02/12/21 05:28 Labs: Short CBC 02/05/21 Range/Units 06:37 WBC 5.7 (4.8-10.8) X10*3/uL Hgb 10.6 L (14.0-18.0) g/dl Hct 34.2 L (42-52) % Plt Count 68 L (160-400) X10*3/uL [facility] 02/05/21 06:37 Sodium 144 Potassium 5.4 H Chloride 107 Carbon Dioxide 26 BUN 103 H* Creatinine 2.70 H Calcium 9.9 Liver Function 02/05/21 Range/Units 06:37 Total Bilirubin 0.3 (0.0-1.0) mg/dL Direct Bilirubin < 0.2 (0.0-0.5) mg/dL AST 16 (5-37) U/L ALT 13 (0-40) U/L Alkaline Phosphatase 61 (39-117) U/L Albumin 2.2 L (3.5-5.0) g/dL Microbiology Microbiology Results: Microbiology 02/03/21 09:43 Blood - Venous Blood Culture - Preliminary No growth after 48 hours. 02/03/21 09:43 Blood - Venous Blood Culture - Preliminary No growth after 48 hours. 02/04/21 12:50 Cerebrospinal Fluid Gram Stain - Final 02/04/21 12:50 Cerebrospinal Fluid CSF Examination - Final 02/04/21 12:50 Cerebrospinal Fluid Fluid Description - Final 02/04/21 12:50 Cerebrospinal Fluid CSF Culture - Preliminary No growth after 1 day 01/30/21 13:34 Blood - Venous Blood Culture - Final No growth after 5 days. 01/30/21 13:34 Blood - Venous Blood Culture - Final No growth after 5 days. Assessment and Plan (1) Encephalopathy: Status: Acute He has possible dehydration causing symptoms Would stop medication within next 2-3d Treat Cdiff with po Vancomycin if seen No need to treat coagulase negative staph even if multiple here as dont see any line infection (2) Diarrhea: Status: Acute
[2021-02-05 23:51] VITALS: BP 163/88; PULSE 83; RESP 18; TEMP 36.4; O2SAT 98
[2021-02-06 03:46] VITALS: BP 153/84; PULSE 92; RESP 20; TEMP 36.6; O2SAT 98
[2021-02-06] MEDS: methylPREDNISolone Sod Succ 40 MG/ML VIAL 20 MG IVPUSH ×2 (05:12→17:43)
[2021-02-06] MEDS: metroNIDAZOLE/NS 500 MG/100 ML PIGGYBACK 100 MG IV ×2 (05:12→13:52)
[2021-02-06 07:47] LABS: Hematocrit 34.2 % (42-52); Hemoglobin 10.6 g/dl (14.0-18.0); Mean Corpuscular Hemoglobin 28.5 pg (27.0-33.0); Mean Corpuscular Volume 91.9 fL (80-98); Mean Platelet Volume 11.2 fL (9.4-12.4); NRBC Pct Auto 0.4 /100WBC (0.0-0.2); PLT CLUMP 1; Red Blood Count 3.72 X10*6/uL (4.60-5.80); Red Cell Distribution Width 14.7 % (11.0-16.0); White Blood Count 5.3 X10*3/uL (4.8-10.8)
[2021-02-06 07:48] LABS: Platelet Count 97 X10*3/uL (160-400)
[2021-02-06 08:00] VITALS: BP 158/98; PULSE 82; RESP 20; O2SAT 96
[2021-02-06 08:11] LABS: Anion Gap 15 (12-20); Blood Urea Nitrogen 100 mg/dL (9-16); Calcium 9.5 mg/dL (8.4-10.2); Carbon Dioxide 23 mmol/L (22-29); Chloride 111 mmol/L (96-108); Creatinine Clr Calc Pharmacy 35.9; Estimated Glomerular Filt Rate 30; Glucose Fasting 207 mg/dL (60-99); Potassium 5.6 mmol/L (3.3-5.1); Sodium 143 mmol/L (135-145)
[2021-02-06] MEDS: Dextrose 5 % and 0.45 % NaCl 1,000 ML 80 ML IVCONT ×2 (08:33→20:47)
[2021-02-06 11:29] VITALS: BP 148/78; PULSE 75; RESP 20; TEMP 36.8; O2SAT 98
[2021-02-06] MEDS: Sodium Polystyrene Sulfon/Sorb 15 GM/60 ML ORAL.SUSP PO (12:05)
[2021-02-06] MEDS: Enoxaparin Sodium 80 MG/0.8 ML SYRINGE SUBCUT (12:05)
--- NOTE | 2021-02-06 12:11 | MHC.SL.SWA ---
Speech Pathologist Impression: of Aspiration Oral Phase Dysphagia Dysphasia Diet Status: Upgrade Liquid Consistency and Strategies for Safe Swallow: Liquid Intake Recommendation: Thin Liquid Intake Strategies: Small Sips Solid Food Consistency: Dietary Recommendations: Chopped/Advanced (NDD3) Additional Modifications to Solid Foods: Pills to be administered whole or crushed in puree. Oral Medication Intake: Whole with Puree Compensatory Strategies and Precautions to be Taken for Safe Swallow: Sitting Upright (90 deg) Small Bites and Sips Alternate Liquids/Solids Rate of Ingestion Change Supervision While Eating and Drinking for Safe Swallow: Total Assistance Swallowing Recommended Treatments: Compens. Strategy Educat. Recommendation for Speech: NA:Typical Evaluation Comment: INCISING MACHINE OPERATOR to follow up 1x time to ensure tolerance. Mill Platform Supervisor Clinican/Clinical Fellow: No Supervisory Statement: I have reviewed and agree with the student/clinical fellow's documentation: N/A Speech Language Pathologist: Isis Mathias M.A., CCC-INCISING MACHINE OPERATOR
--- NOTE | 2021-02-06 14:27 | P.PNNP_ITS ---
Subjective Subjective Date of Service: 02/06/21 Principal diagnosis: Cardiomyopathy, atrial fibrillation. Interval history: more alert today, Cofortable Physical Exam Vital Signs: Vital Signs: Last Vital Signs Temp 98.2 F 02/06/21 11:29 Pulse 75 02/06/21 11:29 Resp 20 02/06/21 11:29 BP 148/78 H 02/06/21 11:29 Pulse Ox 98 02/06/21 11:29 Body Mass Index 25.8 Const: General: no acute distress and lethargic Orientation/consciousness: patient oriented x3 and lethargic Eyes: EOM: EOMs intact bilaterally Neck: Neck: Yes supple Resp: Auscultation: diminished lung sounds Cardio: Jugular venous distension: no JVD Rate: regular rate Heart sound s: no rubs GI: Palpation (GI): Soft to palpation Neuro: Other: Lethargic General: patient oriented x3 and moves all extremities Objective Data Labs CBC & Chem 7: 02/06/21 07:21 02/06/21 07:21 Labs: Laboratory Results - last 24 hr 02/04/21 02/06/21 02/06/21 12:50 07:21 07:21 WBC 5.3 RBC 3.72 L Hgb 10.6 L Hct 34.2 L MCV 91.9 MCH 28.5 MCHC 31.0 RDW 14.7 Plt Count 97 L D MPV 11.2 Absolute Nucleated RBC 0.020 H Nucleated RBC % (auto) 0.4 H Sodium 143 Potassium 5.6 H Chloride 111 H Carbon Dioxide 23 Anion Gap 15 BUN 100 H* Creatinine 2.20 H Estim Creat Clear Calc 35.9 Estimated GFR 30 Fasting Glucose 207 H Calcium 9.5 Fld Lyme DNA (PCR) Lyme Disease DNA (PCR) NOT DETECTED Microbiology Microbiology Results: Microbiology 02/04/21 12:50 Cerebrospinal Fluid Gram Stain - Final 02/04/21 12:50 Cerebrospinal Fluid CSF Examination - Final 02/04/21 12:50 Cerebrospinal Fluid Fluid Description - Final 02/04/21 12:50 Cerebrospinal Fluid CSF Culture - Preliminary No growth after 2 days 02/03/21 09:43 Blood - Venous Blood Culture - Preliminary No growth after 48 hours. 02/03/21 09:43 Blood - Venous Blood Culture - Preliminary No growth after 48 hours. 01/30/21 13:34 Blood - Venous Blood Culture - Final No growth after 5 days. 01/30/21 13:34 Blood - Venous Blood Culture - Final No growth after 5 days. Assessment & Plan Assessment and plan (1) Encephalopathy: Status: Acute Assessment and Plan: Acute kidney injury superimposed on CKD: Creatinine is better Assessment and Plan: ANA in renal transplant due to compromise in renal perfusion Had been hypervolemic - Was getting diuretics Urine cocaine negative No change in immunosupression now Will continue with w/u for AMS ? Has auto immune encephalitis Concur with rest of current management Labs AM. Shall follow up closely (2) Diarrhea: Status: Acute Time Spent With Patient Time: Total time spent is greater than 50% in coordination of care (as documented) at patient's floor/unit and/or counseling patient: Procedures Date of Service Date of Service: 02/06/21
--- NOTE | 2021-02-06 15:21 | P.PNIM_ITS ---
Subjective Subjective Date of Service: 02/06/21 Interval History: no complaints, even more awake today Cardiovascular Cardiovascular: Reports no additional cardiovascular complaints Respiratory Respiratory: Reports no additional respiratory complaints Physical Exam Vital Signs: Vital Signs: Last Vital Signs Temp 98.2 F 02/06/21 11:29 Pulse 75 02/06/21 11:29 Resp 20 02/06/21 11:29 BP 148/78 H 02/06/21 11:29 Pulse Ox 98 02/06/21 11:29 Body Mass Index 25.8 General: still disoriented, but more alert today, answering simple questions and commands Resp: CTA bilateral CVS: S1,S2,RRR GI: soft, non tender, non distended Neuro: motor grossly intact Psych: impaired insight Objective Data Current Medications Generic Name Dose Route Start Last Admin Trade Name Freq PRN Reason Stop Dose Admin Divalproex Sodium 500 mg 01/28/21 10:15 02/02/21 11:44 Divalproex Sodium Er 500 Mg Tab.Er.24h PO Not Given DAILY YOLANDA Divalproex Sodium 1,000 mg 01/28/21 21:00 02/02/21 21:47 Divalproex Sodium Er 500 Mg Tab.Er.24h PO Not Given BEDTIME YOLANDA Enoxaparin Sodium 80 mg 02/03/21 12:00 02/06/21 12:05 Enoxaparin Sodium 80 Mg/0.8 Ml Syringe SUBCUT 80 mg Q24H YOLANDA Administration Metronidazole 500 mg in 100 mls @ 100 mls/hr 02/04/21 14:00 02/06/21 15:08 Flagyl IV Infused Q8H YOLANDA Infusion Dextrose/Sodium Chloride 1,000 mls @ 80 mls/hr 02/05/21 08:00 02/06/21 08:33 D51/2ns IVCONT 80 mls/hr .[id number] YOLANDA Administration Medication 1 each 01/30/21 09:00 No Benzodiazepines MISCELLANE DAILY Y[facility]ANDA Methylprednisolone Sodium Succinate 20 mg 02/03/21 18:00 02/06/21 05:12 Methylprednisolone Sod Succ 40 Mg/Ml Vial IVPUSH 20 mg Q12H YOLANDA Administration Non-Formulary Medication 1 tab 01/28/21 10:30 Sod Phos Di, [place]-K Phos [place] [Phospha 250 Neutral] PO DAILY YOLANDA Sodium Chloride 3 ml 01/28/21 08:00 02/06/21 15:07 0.9 % Sodium Chloride Flush 3 Ml Syringe IVFLUSH Not Given QSHIFT YOLANDA Tacrolimus 2 mg 01/28/21 10:20 02/06/21 08:13 Tacrolimus 1 Mg Capsule PO Not Given BID YOLANDA Labs CBC & Chem 7: 02/06/21 07:21 02/06/21 07:21 Microbiology Microbiology Results: Microbiology 02/04/21 12:50 Cerebrospinal Fluid Gram Stain - Final 02/04/21 12:50 Cerebrospinal Fluid CSF Examination - Final 02/04/21 12:50 Cerebrospinal Fluid Fluid Description - Final 02/04/21 12:50 Cerebrospinal Fluid CSF Culture - Preliminary No growth after 2 days 02/03/21 09:43 Blood - Venous Blood Culture - Preliminary No growth after 48 hours. 02/03/21 09:43 Blood - Venous Blood Culture - Preliminary No growth after 48 hours. 01/30/21 13:34 Blood - Venous Blood Culture - Final No growth after 5 days. 01/30/21 13:34 Blood - Venous Blood Culture - Final No growth after 5 days. Assessment and Plan (1) C. difficile diarrhea: Status: Acute (2) GI bleed: Status: Acute (3) Acute kidney injury superimposed on CKD: Status: Acute (4) Diarrhea: Status: Acute (5) CHF exacerbation: Status: Acute Assessment and Plan: this is a 60 yo m extensive hx as mentioned above who presents to the hospital with complaints of diarrhea as well as gi bleed C diff infection no recent abx use but recent hospital stay Diarrhea resolved will change back to po vanco for 4 more days Metabolic encephalopathy ddx includes: Secondary to infection, medications, hospital induced, hypoactive delerium, hypernatremia Normal valproic acid level ABG showing no retention continues to have significant improvement now on NDD3 and thins, will dc maintance fluids CT head negative for any acute findings Repeated CT chest abdomen pelvis showing nonspecific changes but no clear source of infection identified Repeated blood cultures and urine cultures ngtd Neurology evaluated the patient, metabolic encephalopathy to check EEG, mri unremarkable Avoid medications that might affect his mentation LP with lymphocytes and protein, meningitis/encephalitis panel negative continue solumedrol low grade Fever could be secondary to C diff or aspiration Chest x-ray showing possible infiltrate versus fluid overload Negative urinalysis negative blood cultures and negative lactic acid Add incentive spirometry ID eval - no abx for now GI bleed occult stool blood positive 2/2 c.diff on anticoagulation which was restarted hgb stable Tolerating diet GI input appreciated, no need for intervention prilosec chronic systolic CHF exacerbation elevated BNP and edema hold IV Lasix b.i.d. Echo from november showed EF of 15-20% Cardiology input appreciated, Intake output ANA on CKD in setting of renal transplant Improved back to baseline of 2.6 Monitor BMP Nephrology following continue iv steroids prograf Right shoulder pain and swelling X-ray from 01/21 showing no fracture or dislocation Orthopedic team evaluated the patient, no intervention needed, put a sling ruled out DVT by US Repeated XR showing suspicious of glenoid fracture, orthopedic suggested outpatient follow-up. Keep arm elevated Persistent Afib underwent cardioversion on 01/14 xarelto continue amiodarone and metoprolol DVT ppx xarelto unable to contact any family members
[2021-02-06] MEDS: vancomycin HCL 125 MG CAPSULE PO ×2 (15:52→20:44)
[2021-02-06 19:53] VITALS: BP 150/82; PULSE 59; RESP 18; TEMP 36.4; O2SAT 98
[2021-02-06] MEDS: Tacrolimus 1 MG CAPSULE 2 MG PO (20:44)
[2021-02-06] MEDS: 0.9 % Sodium Chloride Flush 3 ML SYRINGE IVFLUSH (20:47)
[2021-02-06 23:51] LABS: TS Negative Control Passed; TS Panel A 1; TS Panel B 0; TS Positive Control Passed; TSpotTB Negative (SeeBelow)
[2021-02-07] VITALS (9 sets, daily range): BP systolic 143–167; BP diastolic 56–98; PULSE 67–86; RESP 18–20; TEMP 36.1–36.7; O2SAT 96–99
[2021-02-07] MEDS: vancomycin HCL 125 MG CAPSULE PO ×4 (02:40→20:41)
[2021-02-07] MEDS: methylPREDNISolone Sod Succ 40 MG/ML VIAL 20 MG IVPUSH ×2 (05:29→17:18)
[2021-02-07 07:09] LABS: Anion Gap 13 (12-20); Blood Urea Nitrogen 88 mg/dL (9-16); Calcium 9.3 mg/dL (8.4-10.2); Carbon Dioxide 27 mmol/L (22-29); Chloride 107 mmol/L (96-108); Creatinine Clr Calc Pharmacy 42.7; Estimated Glomerular Filt Rate 37; Glucose Fasting 187 mg/dL (60-99); Potassium 4.5 mmol/L (3.3-5.1); Sodium 142 mmol/L (135-145)
[2021-02-07 07:17] LABS: Hematocrit 37.3 % (42-52); Hemoglobin 11.5 g/dl (14.0-18.0); Mean Corpuscular HGB Conc 30.8 g/dl (31.0-36.0); Mean Corpuscular Hemoglobin 28.5 pg (27.0-33.0); Mean Corpuscular Volume 92.6 fL (80-98); Mean Platelet Volume 10.9 fL (9.4-12.4); Platelet Count 110 X10*3/uL (160-400); Red Blood Count 4.03 X10*6/uL (4.60-5.80); Red Cell Distribution Width 14.6 % (11.0-16.0); White Blood Count 5.5 X10*3/uL (4.8-10.8)
[2021-02-07] MEDS: Dextrose 5 % and 0.45 % NaCl 1,000 ML 80 ML IVCONT (08:57)
[2021-02-07] MEDS: Rivaroxaban 15 MG TABLET PO (08:57)
[2021-02-07] MEDS: 0.9 % Sodium Chloride Flush 3 ML SYRINGE IVFLUSH ×3 (08:57→20:42)
[2021-02-07] MEDS: Tacrolimus 1 MG CAPSULE 2 MG PO ×2 (08:57→20:41)
[2021-02-07] MEDS: Metoprolol Succinate ER 50 MG TAB.ER.24H PO (08:57)
--- NOTE | 2021-02-07 10:08 | P.PNIM_ITS ---
Subjective Subjective Date of Service: 02/07/21 Interval History: much more alert today, able to talk about early on in the admission, but no memory of recent events Cardiovascular Cardiovascular: Reports no additional cardiovascular complaints Gastrointestinal Gastrointestinal: Reports no additional gastrointestinal complaints Physical Exam Vital Signs: Vital Signs: Last Vital Signs Temp 97.2 F 02/07/21 07:36 Pulse 86 02/07/21 08:57 Resp 18 02/07/21 07:36 BP 158/85 H 02/07/21 08:57 Pulse Ox 99 02/07/21 07:36 Body Mass Index 25.8 General: AO times 3, no acute distress, still seems a little off and no memory of recent events, but almost back to baseline Resp: CTA bilateral CVS: S1,S2,RRR GI: soft, non tender, non distended Neuro: motor grossly intact Psych: impaired insight Objective Data Current Medications Generic Name Dose Route Start Last Admin Trade Name Freq PRN Reason Stop Dose Admin Divalproex Sodium 500 mg 01/28/21 10:15 02/02/21 11:44 Divalproex Sodium Er 500 Mg Tab.Er.24h PO Not Given DAILY YOLANDA Divalproex Sodium 1,000 mg 01/28/21 21:00 02/02/21 21:47 Divalproex Sodium Er 500 Mg Tab.Er.24h PO Not Given BEDTIME YOLANDA Medication 1 each 01/30/21 09:00 No Benzodiazepines MISCELLANE DAILY YOLANDA Methylprednisolone Sodium Succinate 20 mg 02/03/21 18:00 02/07/21 05:29 Methylprednisolone Sod Succ 40 Mg/Ml Vial IVPUSH 20 mg Q12H YOLANDA Administration Metoprolol Succinate 50 mg 02/07/21 09:00 02/07/21 08:57 Metoprolol Succinate Er 50 Mg Tab.Er.24h PO 50 mg DAILY YOLANDA Administration Protocol Non-Formulary Medication 1 tab 01/28/21 10:30 Sod Phos Di, [place]-K Phos [place] [Phospha 250 Neutral] PO DAILY YOLANDA Rivaroxaban 15 mg 02/07/21 09:00 02/07/21 08:57 Rivaroxaban 15 Mg Tablet PO 15 mg DAILY YOLANDA Administration Sodium Chloride 3 ml 01/28/21 08:00 02/07/21 08:57 0.9 % Sodium Chloride Flush 3 Ml Syringe IVFLUSH 3 ml QSHIFT YOLANDA Administration Tacrolimus 2 mg 01/28/21 10:20 02/07/21 08:57 Tacrolimus 1 Mg Capsule PO 2 mg BID YOLANDA Administration Vancomycin HCl 125 mg 02/06/21 15:30 02/07/21 08:57 Vancomycin Hcl 125 Mg Capsule PO 125 mg Q6H YOLANDA Administration Labs CBC & Chem 7: 02/07/21 05:36 02/07/21 05:36 Microbiology Microbiology Results: Microbiology 02/04/21 12:50 Cerebrospinal Fluid Gram Stain - Final 02/04/21 12:50 Cerebrospinal Fluid CSF Examination - Final 02/04/21 12:50 Cerebrospinal Fluid Fluid Description - Final 02/04/21 12:50 Cerebrospinal Fluid CSF Culture - Final No growth after 3 days. 02/03/21 09:43 Blood - Venous Blood Culture - Preliminary No growth after 48 hours. 02/03/21 09:43 Blood - Venous Blood Culture - Preliminary No growth after 48 hours. 01/30/21 13:34 Blood - Venous Blood Culture - Final No growth after 5 days. 01/30/21 13:34 Blood - Venous Blood Culture - Final No growth after 5 days. Assessment and Plan (1) C. difficile diarrhea: Status: Acute (2) GI bleed: Status: Acute (3) Acute kidney injury superimposed on CKD: Status: Acute (4) Diarrhea: Status: Acute (5) CHF exacerbation: Status: Acute Assessment and Plan: this is a 60 yo m extensive hx as mentioned above who presents to the hospital with complaints of diarrhea as well as gi bleed C diff infection no recent abx use but recent hospital stay Diarrhea resolved po vanco for 3 more days Metabolic encephalopathy ddx includes: Secondary to infection, medications, hospital induced, hypoactive delerium, hypernatremia Normal valproic acid level ABG showing no retention continues to have significant improvement now on NDD3 and thins, [employer] following CT head negative for any acute findings Repeated CT chest abdomen pelvis showing nonspecific changes but no clear source of infection identified Repeated blood cultures and urine cultures negative Neurology evaluated the patient, metabolic encephalopathy, mri unremarkable Avoid medications that might affect his mentation LP with lymphocytes and protein, meningitis/encephalitis panel negative continue solumedrol - seems to be responding to steroids low grade Fever could be secondary to C diff or aspiration Chest x-ray showing possible infiltrate versus fluid overload Negative urinalysis negative blood cultures and negative lactic acid incentive spirometry ID eval - no abx for now chronic systolic CHF exacerbation Echo from november showed EF of 15-20% monitor closely, may need to restart lasix soon continue toprol ANA on CKD in setting of renal transplant Improved back to baseline of 2.6 Monitor BMP Nephrology following continue iv steroids prograf Right shoulder pain and swelling X-ray from 01/21 showing no fracture or dislocation Orthopedic team evaluated the patient, no intervention needed, put a sling ruled out DVT by US Repeated XR showing suspicious of glenoid fracture, orthopedic suggested outpatient follow-up. Keep arm elevated Persistent Afib underwent cardioversion on 01/14 xarelto continue amiodarone and metoprolol DVT ppx xarelto
--- NOTE | 2021-02-07 13:19 | P.PNNP_ITS ---
Subjective Subjective Date of Service: 02/07/21 Principal diagnosis: Cardiomyopathy, atrial fibrillation. Interval history: much more alert today Not in distress Physical Exam Vital Signs: Vital Signs: Last Vital Signs Temp 97.0 F 02/07/21 11:39 Pulse 73 02/07/21 11:39 Resp 20 02/07/21 11:39 BP 147/97 H 02/07/21 11:39 Pulse Ox 97 02/07/21 11:39 Body Mass Index 25.8 Const: General: no acute distress and lethargic Orientation/consciousness: patient oriented x3 and lethargic Eyes: EOM: EOMs intact bilaterally Neck: Neck: Yes supple Resp: Auscultation: diminished lung sounds Cardio: Jugular venous distension: no JVD Rate: regular rate Heart sounds: no rubs GI: Palpation (GI): Soft to palpation Neuro: Other: Lethargic General: patient oriented x3 and moves all extremi ties Objective Data Labs CBC & Chem 7: 02/07/21 05:36 02/07/21 05:36 Labs: Laboratory Results - last 24 hr 02/04/21 02/07/21 02/07/21 15:40 05:36 05:36 WBC 5.5 RBC 4.03 L Hgb 11.5 L Hct 37.3 L MCV 92.6 MCH 28.5 MCHC 30.8 L RDW 14.6 Plt Count 110 L MPV 10.9 Absolute Nucleated RBC 0.000 Nucleated RBC % (auto) 0.0 Sodium 142 Potassium 4.5 Chloride 107 Carbon Dioxide 27 Anion Gap 13 BUN 88 H* Creatinine 1.85 H Estim Creat Clear Calc 42.7 Estimated GFR 37 Fasting Glucose 187 H Calcium 9.3 TB Test (T-Spot) Com Negative TB Test Nil Control Passed TB Test Panel A 1 TB Test Panel B 0 TB Test Positive Cntrl Passed Microbiology Microbiology Results: Microbiology 02/04/21 12:50 Cerebrospinal Fluid Gram Stain - Final 02/04/21 12:50 Cerebrospinal Fluid CSF Examination - Final 02/04/21 12:50 Cerebrospinal Fluid Fluid Description - Final 02/04/21 12:50 Cerebrospinal Fluid CSF Culture - Final No growth after 3 days. 02/03/21 09:43 Blood - Venous Blood Culture - Preliminary No growth after 48 hours. 02/03/21 09:43 Blood - Venous Blood Culture - Preliminary No growth after 48 hours. 01/30/21 13:34 Blood - Venous Blood Culture - Final No growth after 5 days. 01/30/21 13:34 Blood - Venous Blood Culture - Final No growth after 5 days. Assessment & Plan Assessment and plan (1) C. difficile diarrhea: Status: Acute (2) GI bleed: Status: Acute (3) Acute kidney injury superimposed on CKD: Status: Acute (4) Diarrhea: Status: Acute (5) CHF exacerbation: Status: Acute Assessment and Plan: 60 yo mwho presents to the hospital with complaints of diarrhea as well as gi bleed C diff infection. Metabolic encephalopathy ANA on CKD in setting of renal transplant Improved back to baseline - Now 1.85 continue iv steroids Continue Prograf Continue xarelto continue amiodarone and metoprolol Time Spent With Patient Time: Total time spent is greater than 50% in coordination of care (as documented) at patient's floor/unit and/or counseling patient: Procedures Date of Service Date of Service: 02/07/21
[2021-02-07 17:51] LABS: VDRL Qualitative CSF Nonreactive (Nonreactive)
[2021-02-08] MEDS: HYDROmorphone HCl 0.5 MG/0.5 ML SYRINGE IVPUSH (02:05)
[2021-02-08] MEDS: vancomycin HCL 125 MG CAPSULE PO ×4 (03:17→20:38)
[2021-02-08 03:21] VITALS: BP 124/73; PULSE 75; RESP 18; TEMP 36.3; O2SAT 95
[2021-02-08 06:09] LABS: Hematocrit 33.9 % (42-52); Hemoglobin 10.7 g/dl (14.0-18.0); Mean Corpuscular HGB Conc 31.6 g/dl (31.0-36.0); Mean Corpuscular Hemoglobin 28.7 pg (27.0-33.0); Mean Corpuscular Volume 90.9 fL (80-98); Mean Platelet Volume 10.8 fL (9.4-12.4); Platelet Count 118 X10*3/uL (160-400); Red Blood Count 3.73 X10*6/uL (4.60-5.80); Red Cell Distribution Width 14.6 % (11.0-16.0); White Blood Count 7.1 X10*3/uL (4.8-10.8)
[2021-02-08 06:13] LABS: Anion Gap 13 (12-20); Blood Urea Nitrogen 73 mg/dL (9-16); Calcium 9.1 mg/dL (8.4-10.2); Carbon Dioxide 24 mmol/L (22-29); Chloride 106 mmol/L (96-108); Creatinine Clr Calc Pharmacy 50.6; Estimated Glomerular Filt Rate 45; Glucose Fasting 170 mg/dL (60-99); Potassium 4.9 mmol/L (3.3-5.1); Sodium 138 mmol/L (135-145)
[2021-02-08] MEDS: methylPREDNISolone Sod Succ 40 MG/ML VIAL 20 MG IVPUSH (06:21)
[2021-02-08 07:07] VITALS: BP 92/57; PULSE 70; RESP 18; TEMP 36.3; O2SAT 97
[2021-02-08 09:27] VITALS: BP 119/78; PULSE 82
[2021-02-08] MEDS: 0.9 % Sodium Chloride Flush 3 ML SYRINGE IVFLUSH ×2 (09:27→17:35)
[2021-02-08] MEDS: Tacrolimus 1 MG CAPSULE 2 MG PO ×2 (09:27→20:38)
[2021-02-08] MEDS: Metoprolol Succinate ER 50 MG TAB.ER.24H PO (09:27)
[2021-02-08] MEDS: Rivaroxaban 15 MG TABLET PO (09:28)
--- NOTE | 2021-02-08 10:50 | P.PNIM_ITS ---
Subjective Subjective Date of Service: 02/08/21 Interval History: no complaints Cardiovascular Cardiovascular: Reports no additional cardiovascular complaints Gastrointestinal Gastrointestinal: Reports no additional gastrointestinal complaints Physical Exam Vital Signs: Vital Signs: Last Vital Signs Temp 97.4 F 02/08/21 07:07 Pulse 82 02/08/21 09:27 Resp 18 02/08/21 07:07 BP 119/78 02/08/21 09:27 Pulse Ox 97 02/08/21 07:07 Body Mass Index 25.8 General: AO times 3, no acute distress, about the same as yesterday CVS: S1,S2,RRR GI: soft, non tender, non distended Neuro: motor grossly intact Psych: impaired insight Objective Data Current Medications Generic Name Dose Route Start Last Admin Trade Name Freq PRN Reason Stop Dose Admin Divalproex Sodium 500 mg 01/28/21 10:15 02/02/21 11:44 Divalproex Sodium Er 500 Mg Tab.Er.24h PO Not Given DAILY YOLANDA Divalproex Sodium 1,000 mg 01/28/21 21:00 02/02/21 21:47 Divalproex Sodium Er 500 Mg Tab.Er.24h PO Not Given BEDTIME [facility] Medication 1 each 01/30/21 09:00 No Benzodiazepines MISCELLANE DAILY [facility] Metoprolol Succinate 50 mg 02/07/21 09:00 02/08/21 09:27 Metoprolol Succinate Er 50 Mg Tab.Er.24h PO 50 mg DAILY [facility] Administration Protocol Non-Formulary Medication 1 tab 01/28/21 10:30 Sod Phos Di, Coamo-K Phos Coamo [Phospha 250 Neutral] PO DAILY [facility] Prednisone 40 mg 02/09/21 09:00 Prednisone 20 Mg Tablet PO DAILY [facility] Rivaroxaban 15 mg 02/07/21 09:00 02/08/21 09:28 Rivaroxaban 15 Mg Tablet PO 15 mg DAILY [facility] Administration Sodium Chloride 3 ml 01/28/21 08:00 02/08/21 09:27 0.9 % Sodium Chloride Flush 3 Ml Syringe IVFLUSH 3 ml QSHIFT YOLANDA Administration Tacrolimus 2 mg 01/28/21 10:20 02/08/21 09:27 Tacrolimus 1 Mg Capsule PO 2 mg BID YOLANDA Administration Vancomycin HCl 125 mg 02/06/21 15:30 02/08/21 09:27 Vancomycin Hcl 125 Mg Capsule PO 125 mg Q6H YOLANDA Administration Labs CBC & Chem 7: 02/08/21 05:19 02/08/21 05:19 Microbiology Microbiology Results: Microbiology 02/04/21 12:50 Cerebrospinal Fluid Gram Stain - Final 02/04/21 12:50 Cerebrospinal Fluid CSF Examination - Final 02/04/21 12:50 Cerebrospinal Fluid Fluid Description - Final 02/04/21 12:50 Cerebrospinal Fluid CSF Culture - Final No growth after 3 days. 02/03/21 09:43 Blood - Venous Blood Culture - Preliminary No growth after 48 hours. 02/03/21 09:43 Blood - Venous Blood Culture - Preliminary No growth after 48 hours. 01/30/21 13:34 Blood - Venous Blood Culture - Final No growth after 5 days. 01/30/21 13:34 Blood - Venous Blood Culture - Final No growth after 5 days. Assessment and Plan (1) C. difficile diarrhea: Status: Acute (2) GI bleed: Status: Acute (3) Acute kidney injury superimposed on CKD: Status: Acute (4) Diarrhea: Status: Acute (5) CHF exacerbation: Status: Acute Assessment and Plan: this is a 60 yo m extensive hx as mentioned above who presents to the hospital with complaints of diarrhea as well as gi bleed C diff infection no recent abx use but recent hospital stay Diarrhea resolved po vanco for 2 more days Metabolic encephalopathy ddx includes: Secondary to infection, medications, hospital induced, hypoactive delerium, hypernatremia Normal valproic acid level ABG showing no retention continues to have significant improvement now on NDD3 and thins, [employer] following CT head negative for any acute findings Repeated CT chest abdomen pelvis showing nonspecific changes but no clear source of infection identified Repeated blood cultures and urine cultures negative Neurology evaluated the patient, metabolic encephalopathy, mri unremarkable Avoid medications that might affect his mentation LP with lymphocytes and protein, meningitis/encephalitis panel negative seems to be responding to steroids possibly was some sort of autoimmune encephalitis, CSF was not sent for these studies, will change to po prednisone 40mg daily, monitor low grade Fever could be secondary to C diff or aspiration Chest x-ray showing possible infiltrate versus fluid overload Negative urinalysis negative blood cultures and negative lactic acid incentive spirometry ID eval - no abx for now chronic systolic CHF exacerbation Echo from november showed EF of 15-20% monitor closely, may need to restart lasix soon continue toprol ANA on CKD in setting of renal transplant Improved back to baseline of 1.5 Monitor BMP Nephrology following prograf Right shoulder pain and swelling X-ray from 01/21 showing no fracture or dislocation Orthopedic team evaluated the patient, no intervention needed, put a sling ruled out DVT by US Repeated XR showing suspicious of glenoid fracture, orthopedic suggested outpatient follow-up. Keep arm elevated Persistent Afib underwent cardioversion on 01/14 xarelto continue amiodarone and metoprolol DVT ppx xarelto
[2021-02-08 11:12] VITALS: BP 111/66; PULSE 77; RESP 20; TEMP 36.3; O2SAT 96
--- NOTE | 2021-02-08 12:12 | MHC.SLORD ---
Speech Language Pathology Order Status: Deshaun is recommended CHOPPED/ADVANCED (NDD3) solids and THIN liquids with pills CRUSHED or WHOLE in PUREE. COOKER TENDER spoke with RN who reports that patient has been tolerating recommended textures without difficulty. Patient appears to be on appropriate diet consistencies. Further ST intervention no longer warranted. Please re-refer if there are any changes or if COOKER TENDER can be of further assistance.
[2021-02-08 13:40] LABS: Cryptococcal Ag Source CSF
--- NOTE | 2021-02-08 14:07 | PM.PNNEP ---
Subjective Subjective Date of Service: 02/08/21 Principal diagnosis: Cardiomyopathy, atrial fibrillation. Interval history: no complaints More awake and comfortable Physical Exam Vital Signs: Vital Signs: Last Vital Signs Temp 97.4 F 02/08/21 11:12 Pulse 77 02/08/21 11:12 Resp 20 02/08/21 11:12 BP 111/66 02/08/21 11:12 Pulse Ox 96 02/08/21 11:12 Body Mass Index 25.8 Const: General: no acute distress and lethargic Orientation/consciousness: patient oriented x3 and lethargic Eyes: EOM: EOMs intact bilaterally Neck: Neck: Yes supple Resp: Auscultation: diminished lung sounds Cardio: Jugular venous distension: no JVD Rate: regular rate Heart sounds: no rubs GI: Palpation (GI): Soft to palpation Neuro: Other: Awake and alert General: patient oriented x3 and moves all extremities Objective Data Labs CBC & Chem 7: 02/08/21 05:19 02/08/21 05:19 Labs: Laboratory Results - last 24 hr 02/04/21 02/04/21 02/08/21 12:50 12:50 05:19 WBC 7.1 RBC 3.73 L Hgb 10.7 L Hct 33.9 L MCV 90.9 MCH 28.7 MCHC 31.6 RDW 14.6 Plt Count 118 L MPV 10.8 Absolute Nucleated RBC 0.000 Nucleated RBC % (auto) 0.0 Sodium Potassium Chloride Carbon Dioxide Anion Gap BUN Creatinine Estim Creat Clear Calc Estimated GFR Fasting Glucose Calcium CSF VDRL Nonreactive Cryptococcal Ag Note CSF 02/08/21 05:19 WBC RBC Hgb Hct MCV MCH MCHC RDW Plt Count MPV Absolute Nucleated RBC Nucleated RBC % (auto) Sodium 138 Potassium 4.9 Chloride 106 Carbon Dioxide 24 Anion Gap 13 BUN 73 H Creatinine 1.56 H Estim Creat Clear Calc 50.6 Estimated GFR 45 Fasting Glucose 170 H Calcium 9.1 CSF VDRL Cryptococcal Ag Note Microbiology Microbiology Results: Microbiology 02/03/21 09:43 Blood - Venous Blood Culture - Final No growth after 5 days. 02/03/21 09:43 Blood - Venous Blood Culture - Final No growth after 5 days. 02/04/21 12:50 Cerebrospinal Fluid Gram Stain - Final 02/04/21 12:50 Cerebrospinal Fluid CSF Examination - Final 02/04/21 12:50 Cerebrospinal Fluid Fluid Description - Final 02/04/21 12:50 Cerebrospinal Fluid CSF Culture - Final No growth after 3 days. 01/30/21 13:34 Blood - Venous Blood Culture - Final No growth after 5 days. 01/30/21 13:34 Blood - Venous Blood Culture - Final No growth after 5 days. Assessment & Plan Assessment and plan (1) C. difficile diarrhea: Status: Acute (2) GI bleed: Status: Acute (3) Acute kidney injury superimposed on CKD: Status: Acute (4) Diarrhea: Status: Acute (5) CHF exacerbation: Status: Acute Assessment and Plan: 60 yo mwho presents to the hospital with complaints of diarrhea as well as gi bleed C diff infection. Metabolic encephalopathy ANA on CKD in setting of renal transplant Improved back to baseline - Now around 1.5 continue iv steroids Continue Prograf. Will check level in AM Continue xarelto continue amiodarone and metoprolol Time Spent With Patient Time: Total time spent is greater than 50% in coordination of care (as documented) at patient's floor/unit and/or counseling patient: Procedures Date of Service Date of Service: 02/08/21
[2021-02-08 15:33] VITALS: BP 134/75; PULSE 66; RESP 15; TEMP 36.6; O2SAT 98
[2021-02-08 20:00] VITALS: BP 140/90; PULSE 60; RESP 15; TEMP 36.4; O2SAT 98
[2021-02-09] VITALS (9 sets, daily range): BP systolic 119–158; BP diastolic 61–90; PULSE 54–73; RESP 18–20; TEMP 35.8–37.1; O2SAT 95–98
[2021-02-09] MEDS: Morphine Sulfate 4 MG/ML CARTRIDGE IVPUSH (01:19)
[2021-02-09] MEDS: 0.9 % Sodium Chloride Flush 3 ML SYRINGE IVFLUSH ×4 (01:20→22:12)
[2021-02-09] MEDS: vancomycin HCL 125 MG CAPSULE PO ×4 (03:52→22:12)
--- NOTE | 2021-02-09 08:39 | MHC.CM.PN ---
at this time dc plan remains the same, for patient to go to [facility]. cm to cont. to follow.
[2021-02-09] MEDS: predniSONE 20 MG TABLET 40 MG PO (09:12)
[2021-02-09] MEDS: Metoprolol Succinate ER 50 MG TAB.ER.24H PO (09:12)
[2021-02-09] MEDS: Tacrolimus 1 MG CAPSULE 2 MG PO ×2 (09:13→22:12)
[2021-02-09] MEDS: Rivaroxaban 15 MG TABLET PO (09:13)
--- NOTE | 2021-02-09 09:43 | HO.PM.IMPN ---
Subjective Subjective Date of Service: 02/09/21 Interval History: no complaints Cardiovascular Cardiovascular: Reports no additional cardiovascular complaints Respiratory Respiratory: Reports no additional respiratory complaints Physical Exam Vital Signs: Vital Signs: Last Vital Signs Temp 96.5 F L 02/09/21 06:53 Pulse 73 02/09/21 06:53 Resp 20 02/09/21 06:53 BP 152/73 H 02/09/21 06:53 Pulse Ox 98 02/09/21 06:53 Body Mass Index 25.8 General: AO times 3, no acute distress, CVS: S1,S2,RRR GI: soft, non tender, non distended Neuro: motor grossly intact Psych: impaired insight, bizarre affect Objective Data Current Medications Generic Name Dose Route Start Last Admin Trade Name Freq PRN Reason Stop Dose Admin Divalproex Sodium 500 mg 01/28/21 10:15 02/02/21 11:44 Divalproex Sodium Er 500 Mg Tab.Er.24h PO Not Given DAILY YOLANDA Divalproex Sodium 1,000 mg 01/28/21 21:00 02/02/21 21:47 Divalproex Sodium Er 500 Mg Tab.Er.24h PO Not Given BEDTIME YOLANDA Medication 1 each 01/30/21 09:00 No Benzodiazepines MISCELLANE DAILY YOLANDA Metoprolol Succinate 50 mg 02/07/21 09:00 02/09/21 09:12 Metoprolol Succinate Er 50 Mg Tab.Er.24h PO 50 mg DAILY YOLANDA Administration Protocol Prednisone 40 mg 02/09/21 09:00 02/09/21 09:12 Prednisone 20 Mg Tablet PO 40 mg DAILY YOLANDA Administration Rivaroxaban 15 mg 02/07/21 09:00 02/09/21 09:13 Rivaroxaban 15 Mg Tablet PO 15 mg DAILY YOLANDA Administration Sodium Chloride 3 ml 01/28/21 08:00 02/09/21 09:13 0.9 % Sodium Chloride Flush 3 Ml Syringe IVFLUSH 3 ml QSHIFT YOLANDA Administration Tacrolimus 2 mg 01/28/21 10:20 02/09/21 09:13 Tacrolimus 1 Mg Capsule PO 2 mg BID YOLANDA Administration Vancomycin HCl 125 mg 02/06/21 15:30 02/09/21 09:13 Vancomycin Hcl 125 Mg Capsule PO 125 mg Q6H YOLANDA Administration Labs CBC & Chem 7: 02/08/21 05:19 02/08/21 05:19 Microbiology Microbiology Results: Microbiology 02/03/21 09:43 Blood - Venous Blood Culture - Final No growth after 5 days. 02/03/21 09:43 Blood - Venous Blood Culture - Final No growth after 5 days. 02/04/21 12:50 Cerebrospinal Fluid Gram Stain - Final 02/04/21 12:50 Cerebrospinal Fluid CSF Examination - Final 02/04/21 12:50 Cerebrospinal Fluid Fluid Description - Final 02/04/21 12:50 Cerebrospinal Fluid CSF Culture - Final No growth after 3 days. 01/30/21 13:34 Blood - Venous Blood Culture - Final No growth after 5 days. 01/30/21 13:34 Blood - Venous Blood Culture - Final No growth after 5 days. Assessment and Plan (1) C. difficile diarrhea: Status: Acute (2) GI bleed: Status: Acute (3) Acute kidney injury superimposed on CKD: Status: Acute (4) Diarrhea: Status: Acute (5) CHF exacerbation: Status: Acute Assessment and Plan: this is a 60 yo m extensive hx as mentioned above who presents to the hospital with complaints of diarrhea as well as gi bleed C diff infection no recent abx use but recent hospital stay Diarrhea resolved po vanco for 1 more day Metabolic encephalopathy ddx includes: Secondary to infection, medications, hospital induced, hypoactive delerium, hypernatremia Normal valproic acid level ABG showing no retention seems mostly resolved, but still very bizarre affect, not sure if this is his baseline now on NDD3 and thins, [employer]GER following CT head negative for any acute findings Repeated CT chest abdomen pelvis showing nonspecific changes but no clear source of infection identified Repeated blood cultures and urine cultures negative LP with lymphocytes and protein, meningitis/encephalitis panel negative seems to have responded to steroids possibly was some sort of autoimmune encephalitis, CSF was not sent for these studies, continue po prednisone 40mg daily, follow up neuro for further recs chronic systolic CHF exacerbation Echo from november showed EF of 15-20% will restart po lasix continue toprol ANA on CKD in setting of renal transplant Improved back to baseline of 1.5 Monitor BMP Nephrology following prograf Right shoulder pain and swelling X-ray from 01/21 showing no fracture or dislocation Orthopedic team evaluated the patient, no intervention needed, put a sling ruled out DVT by US Repeated XR showing suspicious of glenoid fracture, orthopedic suggested outpatient follow-up. Keep arm elevated Persistent Afib underwent cardioversion on 01/14 xarelto continue amiodarone and metoprolol DVT ppx xarelto
--- NOTE | 2021-02-09 10:43 | PM.PNNEP ---
Subjective Subjective Date of Service: 02/10/21 Principal diagnosis: Cardiomyopathy, atrial fibrillation. Interval history: Events noted Apparently he is more alert Physical Exam Vital Signs: Vital Signs: Last Vital Signs Temp 96.5 F L 02/09/21 06:53 Pulse 73 02/09/21 06:53 Resp 20 02/09/21 06:53 BP 152/73 H 02/09/21 06:53 Pulse Ox 98 02/09/21 06:53 Body Mass Index 25.8 Const: General: No no acute distress Eyes: EOM: No Nystagmus present Neck: Neck: Yes no JVD Resp: Auscultation: clear to auscultation bilaterally and no crackles Cardio: Heart sounds: no gallops and no rubs GI: Palpation (GI): Soft to palpation and No Ascites present Skin: General skin exam: no purpura Neuro: Cranial nerves: No Nystagmus present Objective Data Labs CBC & Chem 7: 02/08/21 05:19 02/08/21 05:19 Labs: Laboratory Results - last 24 hr 02/04/21 12:50 Cryptococcal Ag Note CSF Microbiology Microbiology Results: Microbiology 02/03/21 09:43 Blood - Venous Blood Culture - Final No growth after 5 days. 02/03/21 09:43 Blood - Venous Blood Culture - Final No growth after 5 days. 02/04/21 12:50 Cerebrospinal Fluid Gram Stain - Final 02/04/21 12:50 Cerebrospinal Fluid CSF Examination - Final 02/04/21 12:50 Cerebrospinal Fluid Fluid Description - Final 02/04/21 12:50 Cerebrospinal Fluid CSF Culture - Final No growth after 3 days. 01/30/21 13:34 Blood - Venous Blood Culture - Final No growth after 5 days. 01/30/21 13:34 Blood - Venous Blood Culture - Final No growth after 5 days. Assessment & Plan Assessment and plan (1) Encephalopathy: Status: Acute (2) Acute kidney injury superimposed on CKD: Status: Acute Assessment and Plan: 60 yo man presents with complaints of diarrhea as well as gi bleed C diff infection. and Metabolic encephalopathy ANA on CKD in setting of renal transplant Improved back to baseline - Now around 1.5 continue iv steroids Continue Prograf. Levels acceptable Continue xarelto continue amiodarone and metoprolol Mentation is improving Time Spent With Patient Time: Total time spent is greater than 50% in coordination of care (as documented) at patient's floor/unit and/or counseling patient: Procedures Date of Service Date of Service: 02/09/21
[2021-02-10] VITALS (7 sets, daily range): BP systolic 102–179; BP diastolic 45–97; PULSE 60–105; RESP 18–20; TEMP 36.4–36.9; O2SAT 96–98
[2021-02-10] MEDS: vancomycin HCL 125 MG CAPSULE PO ×4 (04:01→21:25)
[2021-02-10 05:56] LABS: Tacrolimus Prograf 7.8 mcg/L
--- NOTE | 2021-02-10 08:17 | PM.PNNEP ---
Subjective Subjective Date of Service: 02/24/21 Principal diagnosis: Cardiomyopathy, atrial fibrillation. Interval history: Events noted Apparently he is more alert Physical Exam Vital Signs: Vital Signs: Last Vital Signs Temp 98.4 F 02/10/21 03:45 Pulse 67 02/10/21 03:45 Resp 20 02/10/21 03:45 BP 118/61 02/10/21 03:45 Pulse Ox 98 02/10/21 03:45 Body Mass Index 25.8 Const: General: No no acute distress Eyes: EOM: No Nystagmus present Neck: Neck: Yes no JVD Resp: Auscultation: clear to auscultation bilaterally and no crackles Cardio: Heart sounds: no gallops and no rubs GI: Palpation (GI): Soft to palpation and No Ascites present Skin: General skin exam: no purpura Neuro: Cranial nerves: No Nystagmus present Objective Data Labs CBC & Chem 7: 02/13/21 05:54 02/12/21 05:28 Labs: Laboratory Results - last 24 hr 02/09/21 05:14 Tacrolimus 7.8 Microbiology Microbiology Results: Microbiology 02/03/21 09:43 Blood - Venous Blood Culture - Final No growth after 5 days. 02/03/21 09:43 Blood - Venous Blood Culture - Final No growth after 5 days. 02/04/21 12:50 Cerebrospinal Fluid Gram Stain - Final 02/04/21 12:50 Cerebrospinal Fluid CSF Examination - Final 02/04/21 12:50 Cerebrospinal Fluid Fluid Description - Final 02/04/21 12:50 Cerebrospinal Fluid CSF Culture - Final No growth after 3 days. 01/30/21 13:34 Blood - Venous Blood Culture - Final No growth after 5 days. 01/30/21 13:34 Blood - Venous Blood Culture - Final No growth after 5 days. Assessment & Plan Assessment and plan (1) Encephalopathy: Status: Resolved (2) Acute kidney injury superimposed on CKD: Status: Resolved Assessment and Plan: 60 yo man presents with complaints of diarrhea as well as gi bleed C diff infection. and Metabolic encephalopathy ANA on CKD in setting of renal transplant Improved back to baseline - Now around 1.5 continue iv steroids Continue Prograf. Levels acceptable Continue xarelto continue amiodarone and metoprolol Mentation is improving Time Spent With Patient Time: Total time spent is greater than 50% in coordination of care (as documented) at patient's floor/unit and/or counseling patient: Procedures Date of Service Date of Service: 02/10/21
[2021-02-10] MEDS: Tacrolimus 1 MG CAPSULE 2 MG PO ×2 (08:26→21:26)
[2021-02-10] MEDS: 0.9 % Sodium Chloride Flush 3 ML SYRINGE IVFLUSH ×3 (08:26→21:26)
[2021-02-10] MEDS: Metoprolol Succinate ER 50 MG TAB.ER.24H PO (08:26)
[2021-02-10] MEDS: Rivaroxaban 15 MG TABLET PO (08:26)
[2021-02-10] MEDS: predniSONE 20 MG TABLET 40 MG PO (08:26)
[2021-02-10] MEDS: Furosemide 40 MG TABLET PO (08:26)
--- NOTE | 2021-02-10 12:14 | MHC.CM.PN ---
Male 60 DX GIB C-DIFF DP is to [facility] when stable.
--- NOTE | 2021-02-10 13:32 | PM.IDPN ---
Subjective Subjective Date of Service: 02/10/21 Critical Care Time (minutes): 15 Comment: He has chills and shakes Temperature 99 He had vomiting this morning,refused lunch and has LLQ discomfort He still has diarrhea Objective Data Labs CBC & Chem 7: 02/11/21 05:23 02/11/21 05:23 Labs: Laboratory Results - last 24 hr 02/09/21 05:14 Tacrolimus 7.8 Microbiology Microbiology Results: Microbiology 02/03/21 09:43 Blood - Venous Blood Culture - Final No growth after 5 days. 02/03/21 09:43 Blood - Venous Blood Culture - Final No growth after 5 days. 02/04/21 12:50 Cerebrospinal Fluid Gram Stain - Final 02/04/21 12:50 Cerebrospinal Fluid CSF Examination - Final 02/04/21 12:50 Cerebrospinal Fluid Fluid Description - Final 02/04/21 12:50 Cerebrospinal Fluid CSF Culture - Final No growth after 3 days. 01/30/21 13:34 Blood - Venous Blood Culture - Final No growth after 5 days. 01/30/21 13:34 Blood - Venous Blood Culture - Final No growth after 5 days. Physical Exam Vital Signs: Vital Signs: Last Vital Signs Temp 98.4 F 02/10/21 12:00 Pulse 105 H 02/10/21 12:00 Resp 20 02/10/21 12:00 BP 179/80 H 02/10/21 12:00 Pulse Ox 97 02/10/21 12:00 Body Mass Index 25.8 Const: General: cooperative Orientation/consciousness: patient oriented x3 HENMT: Head: Yes normal to inspection Mouth: Normal oral and palatal mucosa present Eyes: General: appearance normal, both eyes and all related structures Resp: Effort & Inspection: normal respiratory effort Cardio: Rate: tachycardic GI: Palpation (GI): Soft to palpation and Tenderness to palpation present (GI) in the LLQ Skin: General skin exam: no rashes or lesions noted Neuro: General: patient oriented x3 Extrem: General: Yes normal to inspection Assessment and Plan Assessment and plan (1) Encephalopathy: Status: Acute (2) C. difficile diarrhea: Problem details: He has some abdominal discomfort He is having diarrhea still There is aspiration,bowel perforation,other causes diarrhea possible Status: Acute Assessment and Plan: Check stool cryptosporidium,giardia,culture Would check blood culture He has CXR pending Consider CT scan recheck abdomen and pelvis LFT recheck Time Spent With Patient Time: Total time spent is greater than 50% in coordination of care (as documented) at patient's floor/unit and/or counseling patient: Time with patient: 15 - 24 minutes
[2021-02-10 13:41] LABS: Lactic Acid 3.2 mmol/L (0.5-2.0)
[2021-02-10] MEDS: 0.9 % Sodium Chloride 1,000 ML 999 ML IV (13:56)
[2021-02-10 14:27] LABS: CDIFF Ag Negative (Negative); CDIFF Internal ctrl Dots and bkg OK (V); CDiff Toxin Negative (Negative)
[2021-02-10 14:46] LABS: Reflex Lactate? Lactic Acid Added
[2021-02-10 15:37] LABS: Alanine Aminotransferase 10 U/L (0-40); Alkaline Phosphatase 77 U/L (39-117); Aspartate Amino Transferase 20 U/L (5-37); Bilirubin Direct < 0.2 mg/dL (0.0-0.5); Bilirubin Total 0.4 mg/dL (0.0-1.0); Total Protein 4.2 g/dL (6.5-8.0)
[2021-02-10 16:07] LABS: ~Lactic Acid-LAB USE ONLY 2.1 mmol/L (0.5-2.0)
[2021-02-10 17:10] LABS: Reflex Lactate? 2 Y
[2021-02-10 17:52] LABS: ~Lactic Acid-LAB USE ONLY 1.6 mmol/L (0.5-2.0)
--- NOTE | 2021-02-10 18:05 | HO.PM.IMPN ---
Subjective Subjective Date of Service: 02/10/21 Interval History: the patient was seen and evaluated this morning Laying in bed, feels overall better but complaining of a lot of tremors and shivering Denies any fever, chest pain or shortness of breath Had large loose bowel movement this morning No reported other overnight events. Systemic review: No fever, chills but reports generalized weakness No chest pain, palpitation No shortness of breath or coughing No abdominal pain, nausea or vomiting No urinary symptoms Feels anxious and had lot of tremors Physical Exam Vital Signs: Vital Signs: Last Vital Signs Temp 97.8 F 02/10/21 15:05 Pulse 60 02/10/21 15:05 Resp 20 02/10/21 15:05 BP 102/45 L 02/10/21 15:05 Pulse Ox 97 02/10/21 15:05 Body Mass Index 25.8 Const: Other: Constitutional : Alert, oriented, in mild distress, increased tremors Neck : Normal inspection, Supple Cardiovascular : RRR, S1 S2, trace bilateral lower extremity edema Respiratory : Fair bilateral air entry, no crackles, wheezes or rhonchi Gastrointestinal: soft, lax, Normal bowel sounds, Non tender Skin : Warm/Dry Neurological : Alert & oriented to self and place, No focal deficit Objective Data Current Medications Generic Name Dose Route Start Last Admin Trade Name Freq PRN Reason Stop Dose Admin Divalproex Sodium 500 mg 01/28/21 10:15 02/02/21 11:44 Divalproex Sodium Er 500 Mg Tab.Er.24h PO Not Given DAILY YOLANDA Divalproex Sodium 1,000 mg 01/28/21 21:00 02/02/21 21:47 Divalproex Sodium Er 500 Mg Tab.Er.24h PO Not Given BEDTIME YOLANDA Furosemide 40 mg 02/10/21 09:00 02/10/21 08:26 Furosemide 40 Mg Tablet PO 40 mg DAILY [facility] Administration Protocol Medication 1 each 01/30/21 09:00 No Benzodiazepines MISCELLANE DAILY YOLANDA Metoprolol Succinate 50 mg 02/07/21 09:00 02/10/21 08:26 Metoprolol Succinate Er 50 Mg Tab.Er.24h PO 50 mg DAILY [facility] Administration Protocol Prednisone 20 mg 02/11/21 09:00 Prednisone 20 Mg Tablet PO DAILY [facility] Rivaroxaban 15 mg 02/07/21 09:00 02/10/21 08:26 Rivaroxaban 15 Mg Tablet PO 15 mg DAILY YOLANDA Administration Sodium Chloride 3 ml 01/28/21 08:00 02/10/21 17:27 0.9 % Sodium Chloride Flush 3 Ml Syringe IVFLUSH 3 ml QSHIFT YOLANDA Administration Tacrolimus 2 mg 01/28/21 10:20 02/10/21 08:26 Tacrolimus 1 Mg Capsule PO 2 mg BID YOLANDA Administration Vancomycin HCl 125 mg 02/06/21 15:30 02/10/21 17:27 Vancomycin Hcl 125 Mg Capsule PO 125 mg Q6H YOLANDA Administration Labs CBC & Chem 7: 02/08/21 05:19 02/08/21 05:19 Microbiology Microbiology Results: Microbiology 02/03/21 09:43 Blood - Venous Blood Culture - Final No growth after 5 days. 02/03/21 09:43 Blood - Venous Blood Culture - Final No growth after 5 days. 02/04/21 12:50 Cerebrospinal Fluid Gram Stain - Final 02/04/21 12:50 Cerebrospinal Fluid CSF Examination - Final 02/04/21 12:50 Cerebrospinal Fluid Fluid Description - Final 02/04/21 12:50 Cerebrospinal Fluid CSF Culture - Final No growth after 3 days. 01/30/21 13:34 Blood - Venous Blood Culture - Final No growth after 5 days. 01/30/21 13:34 Blood - Venous Blood Culture - Final No growth after 5 days. Assessment and Plan (1) C. difficile diarrhea: Status: Acute (2) GI bleed: Status: Acute (3) Acute kidney injury superimposed on CKD: Status: Acute (4) Diarrhea: Status: Acute (5) CHF exacerbation: Status: Acute Assessment and Plan: this is a 60 yo m extensive hx as mentioned above who presents to the hospital with complaints of diarrhea as well as gi bleed Fever Spiked a fever with tachycardia and chills Associated with loose bowel movement Send blood culture, stool culture, urinalysis and culture Chest x-ray negative for any acute disease Hold antibiotics and continue to monitor Id input appreciated, to check stool for spores and culture C diff infection no recent abx use but recent hospital stay Had an episode of loose stool this morning, negative C diff po vanco 14 days Metabolic encephalopathy ddx includes: Secondary to infection, medications, hospital induced, hypoactive delerium, hypernatremia Improving now on NDD3 and thins, [employer] following CT head negative for any acute findings Repeated CT chest abdomen pelvis showing nonspecific changes but no clear source of infection identified Repeated blood cultures and urine cultures negative LP with lymphocytes and protein, meningitis/encephalitis panel negative seems to have responded to steroids possibly was some sort of autoimmune encephalitis, CSF was not sent for these studies continue po prednisone 40mg daily, follow up neuro for further recs chronic systolic CHF exacerbation Echo from november showed EF of 15-20% will restart po lasix continue toprol ANA on CKD in setting of renal transplant Improved back to baseline of 1.5 Monitor BMP Nephrology following prograf Right shoulder pain and swelling X-ray from 01/21 showing no fracture or dislocation Orthopedic team evaluated the patient, no intervention needed, put a sling ruled out DVT by US Repeated XR showing suspicious of glenoid fracture, orthopedic suggested outpatient follow-up. Keep arm elevated Persistent Afib underwent cardioversion on 01/14 xarelto continue amiodarone and metoprolol DVT ppx xarelto
[2021-02-11] VITALS (8 sets, daily range): BP systolic 115–159; BP diastolic 56–84; PULSE 60–64; RESP 15–20; TEMP 36.3–36.9; O2SAT 97–100
[2021-02-11] MEDS: vancomycin HCL 125 MG CAPSULE PO ×4 (03:38→20:31)
[2021-02-11 06:41] LABS: Hematocrit 31.2 % (42-52); Hemoglobin 9.9 g/dl (14.0-18.0); Mean Corpuscular HGB Conc 31.7 g/dl (31.0-36.0); Mean Corpuscular Hemoglobin 28.9 pg (27.0-33.0); Mean Platelet Volume 10.6 fL (9.4-12.4); Platelet Count 144 X10*3/uL (160-400); Red Blood Count 3.43 X10*6/uL (4.60-5.80); Red Cell Distribution Width 15.2 % (11.0-16.0); White Blood Count 7.2 X10*3/uL (4.8-10.8)
[2021-02-11 07:10] LABS: Anion Gap 11 (12-20); Blood Urea Nitrogen 64 mg/dL (9-16); Carbon Dioxide 24 mmol/L (22-29); Chloride 108 mmol/L (96-108); Creatinine Clr Calc Pharmacy 50.3; Estimated Glomerular Filt Rate 45; Glucose Random 103 mg/dL (60-115); Potassium 4.6 mmol/L (3.3-5.1); Sodium 138 mmol/L (135-145)
[2021-02-11 07:24] LABS: Calcium 8.7 mg/dL (8.4-10.2)
[2021-02-11] MEDS: Furosemide 40 MG TABLET PO (08:18)
[2021-02-11] MEDS: Tacrolimus 1 MG CAPSULE 2 MG PO ×2 (08:18→20:28)
[2021-02-11] MEDS: Metoprolol Succinate ER 50 MG TAB.ER.24H PO (08:19)
[2021-02-11] MEDS: Rivaroxaban 15 MG TABLET PO (08:19)
[2021-02-11] MEDS: predniSONE 20 MG TABLET PO (08:19)
[2021-02-11] MEDS: 0.9 % Sodium Chloride Flush 3 ML SYRINGE IVFLUSH ×3 (08:24→23:49)
--- NOTE | 2021-02-11 08:57 | PM.PNNEP ---
Subjective Subjective Date of Service: 02/25/21 Principal diagnosis: Cardiomyopathy, atrial fibrillation. Interval history: Events noted Mentation about the same Physical Exam Vital Signs: Vital Signs: Last Vital Signs Temp 98.3 F 02/11/21 07:46 Pulse 60 02/11/21 08:19 Resp 19 02/11/21 07:46 BP 136/76 02/11/21 08:19 Pulse Ox 99 02/11/21 07:46 Body Mass Index 25.8 Const: General: No no acute distress Eyes: EOM: No Nystagmus present Neck: Neck: Yes no JVD Resp: Auscultation: clear to auscultation bilaterally and no crackles Cardio: Heart sounds: no gallops and no rubs GI: Palpation (GI): Soft to palpation and No Ascites present Skin: General skin exam: no purpura Neuro: Cranial nerves: No Nystagmus present Objective Data Labs CBC & Chem 7: 02/13/21 05:54 02/12/21 05:28 Labs: Laboratory Results - last 24 hr 02/10/21 02/10/21 02/10/21 12:33 14:35 15:05 WBC RBC Hgb Hct MCV MCH MCHC RDW Plt Count MPV Absolute Nucleated RBC Nucleated RBC % (auto) Sodium Potassium Chloride Carbon Dioxide Anion Gap BUN Creatinine Estim Creat Clear Calc Estimated GFR Random Glucose Lactic Acid 3.2 H* Lactic Acid Fup @ 2Hr 2.1 H* Lactic Acid Fup @ 4Hr Calcium Total Bilirubin 0.4 Direct Bilirubin < 0.2 AST 20 ALT 10 Alkaline Phosphatase 77 D Total Protein 4.2 L Albumin 2.0 L C. difficile Toxin A&B C. difficile Antigen C. difficile Interpret 02/10/21 02/10/21 02/11/21 17:18 Unknown 05:23 WBC 7.2 RBC 3.43 L Hgb 9.9 L Hct 31.2 L MCV 91.0 MCH 28.9 MCHC 31.7 RDW 15.2 Plt Count 144 L MPV 10.6 Absolute Nucleated RBC 0.000 Nucleated RBC % (auto) 0.0 Sodium Potassium Chloride Carbon Dioxide Anion Gap BUN Creatinine Estim Creat Clear Calc Estimated GFR Random Glucose Lactic Acid Lactic Acid Fup @ 2Hr Lactic Acid Fup @ 4Hr 1.6 Calcium Total Bilirubin Direct Bilirubin AST ALT Alkaline Phosphatase Total Protein Albumin C. difficile Toxin A&B Negative C. difficile Antigen Negative C. difficile Interpret SEE NOTE 02/11/21 05:23 WBC RBC Hgb Hct MCV MCH MCHC RDW Plt Count MPV Absolute Nucleated RBC Nucleated RBC % (auto) Sodium 138 Potassium 4.6 Chloride 108 Carbon Dioxide 24 Anion Gap 11 L BUN 64 H Creatinine 1.57 H Estim Creat Clear Calc 50.3 Estimated GFR 45 Random Glucose 103 D Lactic Acid Lactic Acid Fup @ 2Hr Lactic Acid Fup @ 4Hr Calcium 8.7 Total Bilirubin Direct Bilirubin AST ALT Alkaline Phosphatase Total Protein Albumin C. difficile Toxin A&B C. difficile Antigen C. difficile Interpret Microbiology Microbiology Results: Microbiology 02/10/21 13:44 Stool Stool Culture - Preliminary Normal so far. 02/03/21 09:43 Blood - Venous Blood Culture - Final No growth after 5 days. 02/03/21 09:43 Blood - Venous Blood Culture - Final No growth after 5 days. 02/04/21 12:50 Cerebrospinal Fluid Gram Stain - Final 02/04/21 12:50 Cerebrospinal Fluid CSF Examination - Final 02/04/21 12:50 Cerebrospinal Fluid Fluid Description - Final 02/04/21 12:50 Cerebrospinal Fluid CSF Culture - Final No growth after 3 days. 01/30/21 13:34 Blood - Venous Blood Culture - Final No growth after 5 days. 01/30/21 13:34 Blood - Venous Blood Culture - Final No growth after 5 days. Assessment & Plan Assessment and plan (1) Encephalopathy: Status: Resolved (2) Acute kidney injury superimposed on CKD: Status: Resolved Assessment and Plan: 60 yo man presents with complaints of diarrhea as well as gi bleed C diff infection. and Metabolic encephalopathy ANA on CKD in setting of renal transplant Improved back to baseline - Now around 1.5 continue iv steroids Continue Prograf. Levels acceptable Continue xarelto continue amiodarone and metoprolol Mentation is improving Time Spent With Patient Time: Total time spent is greater than 50% in coordination of care (as documented) at patient's floor/unit and/or counseling patient: Procedures Date of Service Date of Service: 02/11/21
--- NOTE | 2021-02-11 12:30 | MHC.CLN ---
F/U PO INTAKE POOR DIET RX: ADVANCED TO CHOPPED RECOMMEND ADDING ENSURE TID TO INCREASE KCALS SUPPLEMENT TO PROVIDE 1050KCALS, 60G PROTEIN MONITOR PO INTAKE CLOSELY
--- NOTE | 2021-02-11 16:01 | HO.PM.IMPN ---
Subjective Subjective Date of Service: 02/11/21 Interval History: the patient was seen and evaluated this morning Laying in bed, feels overall better but reports being very weak and unable to leave her bed even with the help of physical therapist Denies any fever, chest pain or shortness of breath Had 2 episodes of loose bowel movement this morning No reported other overnight events. Systemic review: No fever, chills but reports generalized weakness No chest pain, palpitation No shortness of breath or coughing No abdominal pain, nausea or vomiting No urinary symptoms Feels anxious and had lot of tremors Physical Exam Vital Signs: Vital Signs: Last Vital Signs Temp 98.0 F 02/11/21 15:15 Pulse 64 02/11/21 15:15 Resp 15 02/11/21 15:15 BP 130/66 02/11/21 15:15 Pulse Ox 98 02/11/21 15:15 Body Mass Index 25.8 Const: Other: Constitutional : Alert, oriented, not n distress Neck : Normal inspection, Supple Cardiovascular : RRR, S1 S2, trace bilateral lower extremity edema Respiratory : Fair bilateral air entry, no crackles, wheezes or rhonchi Gastrointestinal: soft, lax, Normal bowel sounds, Non tender Skin : Warm/Dry Neurological : Alert & oriented to self and place, No focal deficit Objective Data Current Medications Generic Name Dose Route Start Last Admin Trade Name Erikq PRN Reason Stop Dose Admin Divalproex Sodium 500 mg 01/28/21 10:15 02/02/21 11:44 Divalproex Sodium Er 500 Mg Tab.Er.24h PO Not Given DAILY YOLANDA Divalproex Sodium 1,000 mg 01/28/21 21:00 02/02/21 21:47 Divalproex Sodium Er 500 Mg Tab.Er.24h PO Not Given BEDTIME YOLANDA Furosemide 40 mg 02/10/21 09:00 02/11/21 08:18 Furosemide 40 Mg Tablet PO 40 mg DAILY YOLANDA Administration Protocol Medication 1 each 01/30/21 09:00 No Benzodiazepines MISCELLANE DAILY YOLANDA Metoprolol Succinate 50 mg 02/07/21 09:00 02/11/21 08:19 Metoprolol Succinate Er 50 Mg Tab.Er.24h PO 50 mg DAILY YOLANDA Administration Protocol Prednisone 20 mg 02/11/21 09:00 02/11/21 08:19 Prednisone 20 Mg Tablet PO 20 mg DAILY YOLANDA Administration Rivaroxaban 15 mg 02/07/21 09:00 02/11/21 08:19 Rivaroxaban 15 Mg Tablet PO 15 mg DAILY YOLANDA Administration Sodium Chloride 3 ml 01/28/21 08:00 02/11/21 15:10 0.9 % Sodium Chloride Flush 3 Ml Syringe IVFLUSH 3 ml QSHIFT YOLANDA Administration Tacrolimus 2 mg 01/28/21 10:20 02/11/21 08:18 Tacrolimus 1 Mg Capsule PO 2 mg BID YOLANDA Administration Vancomycin HCl 125 mg 02/06/21 15:30 02/11/21 15:08 Vancomycin Hcl 125 Mg Capsule PO 125 mg Q6H YOLANDA Administration Labs CBC & Chem 7: 02/11/21 05:23 02/11/21 05:23 Microbiology Microbiology Results: Microbiology 02/10/21 12:43 Blood - Venous Blood Culture - Preliminary No growth after 24 hours. 02/10/21 12:36 Blood - Venous Blood Culture - Preliminary No growth after 24 hours. 02/10/21 13:44 Stool Stool Culture - Preliminary Normal so far. 02/03/21 09:43 Blood - Venous Blood Culture - Final No growth after 5 days. 02/03/21 09:43 Blood - Venous Blood Culture - Final No growth after 5 days. 02/04/21 12:50 Cerebrospinal Fluid Gram Stain - Final 02/04/21 12:50 Cerebrospinal Fluid CSF Examination - Final 02/04/21 12:50 Cerebrospinal Fluid Fluid Description - Final 02/04/21 12:50 Cerebrospinal Fluid CSF Culture - Final No growth after 3 days. 01/30/21 13:34 Blood - Venous Blood Culture - Final No growth after 5 days. 01/30/21 13:34 Blood - Venous Blood Culture - Final No growth after 5 days. Assessment and Plan (1) C. difficile diarrhea: Status: Acute (2) GI bleed: Status: Acute (3) Acute kidney injury superimposed on CKD: Status: Acute (4) Diarrhea: Status: Acute (5) CHF exacerbation: Status: Acute Assessment and Plan: this is a 60 yo m extensive hx as mentioned above who presents to the hospital with complaints of diarrhea as well as gi bleed Fever One episode on 02/10 fever with tachycardia and chills with no recurrence after the Associated with loose bowel movement Pending blood culture, stool culture, urinalysis and culture Chest x-ray negative for any acute disease Hold antibiotics and continue to monitor Id input appreciated, to check stool for spores and culture Physical deconditioning Secondary to prolonged hospital stay Evaluated by Physical therapy this morning and the patient was unable to do much with increased bilateral lower extremity weakness C diff infection no recent abx use but recent hospital stay Had an episode of loose stool this morning, negative C diff Finished po vanco 14 days Metabolic encephalopathy Resolving ddx includes: Secondary to infection, medications, hospital induced, hypoactive delerium, hypernatremia now on NDD3 and thins, [employer] following CT head negative for any acute findings Repeated CT chest abdomen pelvis showing nonspecific changes but no clear source of infection identified Repeated blood cultures and urine cultures negative LP with lymphocytes and protein, meningitis/encephalitis panel negative seems to have responded to steroids possibly was some sort of autoimmune encephalitis, CSF was not sent for these studies continue po prednisone 40mg daily, follow up neuro for further recs chronic systolic CHF exacerbation Echo from november showed EF of 15-20% po lasix continue toprol ANA on CKD in setting of renal transplant Improved back to baseline of 1.5 Monitor BMP Nephrology following prograf Right shoulder pain and swelling X-ray from 01/21 showing no fracture or dislocation Orthopedic team evaluated the patient, no intervention needed, put a sling ruled out DVT by US Repeated XR showing suspicious of glenoid fracture, orthopedic suggested outpatient follow-up. Keep arm elevated Persistent Afib underwent cardioversion on 01/14 xarelto continue amiodarone and metoprolol DVT ppx xarelto
[2021-02-12] VITALS (8 sets, daily range): BP systolic 119–171; BP diastolic 59–78; PULSE 57–62; RESP 18–20; TEMP 35.8–36.6; O2SAT 97–98
[2021-02-12] MEDS: vancomycin HCL 125 MG CAPSULE PO (03:27)
[2021-02-12 06:39] LABS: MANUAL DIFF FLAG NO
[2021-02-12 06:54] LABS: Eosinophils Absolute Auto 0.1 X10*3/uL (0.0-0.4); Eosinophils Percent Auto 0.9 % (0-4); Hematocrit 27.4 % (42-52); Hemoglobin 8.7 g/dl (14.0-18.0); Imm Gran Abs Auto 0.19 X10*3/uL (0.00-0.03); Imm Gran Pct Auto 2.9 % (0.0-0.4); Lymphocytes Percent Auto 15.2 % (20-40); Mean Corpuscular HGB Conc 31.8 g/dl (31.0-36.0); Mean Corpuscular Volume 91.3 fL (80-98); Mean Platelet Volume 11.4 fL (9.4-12.4); Monocytes Absolute Auto 0.5 X10*3/uL (0.1-1.2); Monocytes Percent Auto 7.4 % (2-11); Neutrophils Absolute Auto 4.8 X10*3/uL (2.0-8.3); Neutrophils Percent Auto 73.6 % (45-73); Platelet Count 132 X10*3/uL (160-400); Red Cell Distribution Width 15.1 % (11.0-16.0); White Blood Count 6.5 X10*3/uL (4.8-10.8)
[2021-02-12 07:15] LABS: Anion Gap 10 (12-20); Blood Urea Nitrogen 56 mg/dL (9-16); Calcium 8.5 mg/dL (8.4-10.2); Carbon Dioxide 25 mmol/L (22-29); Chloride 107 mmol/L (96-108); Creatinine Clr Calc Pharmacy 52.7; Estimated Glomerular Filt Rate 47; Glucose Random 136 mg/dL (60-115); Potassium 4.6 mmol/L (3.3-5.1); Sodium 137 mmol/L (135-145)
[2021-02-12] MEDS: Rivaroxaban 15 MG TABLET PO (08:20)
[2021-02-12] MEDS: Tacrolimus 1 MG CAPSULE 2 MG PO ×2 (08:20→20:12)
[2021-02-12] MEDS: Furosemide 40 MG TABLET PO (08:20)
[2021-02-12] MEDS: Metoprolol Succinate ER 50 MG TAB.ER.24H PO (08:20)
[2021-02-12] MEDS: predniSONE 20 MG TABLET PO (08:20)
[2021-02-12] MEDS: 0.9 % Sodium Chloride Flush 3 ML SYRINGE IVFLUSH ×3 (08:22→20:12)
--- NOTE | 2021-02-12 10:02 | MHC.CM.PN ---
DP Male 60 dx GIB C-DIFF Discharge to [facility] via BLS. Anticipate discharge tomorrow. Per no dc today 2/2 waiting on Cultures. CM will follow.
--- NOTE | 2021-02-12 12:19 | PM.PNNEP ---
Subjective Subjective Date of Service: 02/12/21 Principal diagnosis: Cardiomyopathy, atrial fibrillation. Interval history: Events noted Mentation unchanged since yesterday Physical Exam Vital Signs: Vital Signs: Last Vital Signs Temp 96.4 F L 02/12/21 10:55 Pulse 62 02/12/21 11:40 Resp 20 02/12/21 10:55 BP 119/66 02/12/21 11:40 Pulse Ox 97 02/12/21 11:40 Body Mass Index 25.8 Const: General: No no acute distress Eyes: EOM: No Nystagmus present Neck: Neck: Yes no JVD Resp: Auscultation: clear to auscultation bilaterally and no crackles Cardio: Heart sounds: no gallops and no rubs GI: Palpation (GI): Soft to palpation and No Ascites present Skin: General skin exam: no purpura Neuro: Cranial nerves: No Nystagmus present Objective Data Labs CBC & Chem 7: 02/13/21 05:54 02/12/21 05:28 Labs: Laboratory Results - last 24 hr 02/10/21 02/12/21 02/12/21 13:44 05:28 05:28 WBC 6.5 RBC 3.00 L Hgb 8.7 L Hct 27.4 L MCV 91.3 MCH 29.0 MCHC 31.8 RDW 15.1 Plt Count 132 L MPV 11.4 Immature Gran % (Auto) 2.9 H Neut % (Auto) 73.6 H Lymph % (Auto) 15.2 L [place] % (Auto) 7.4 Eos % (Auto) 0.9 Baso % (Auto) 0.0 Lymph # (Auto) 1.0 L [place] # (Auto) 0.5 Eos # (Auto) 0.1 Baso # (Auto) 0.0 Abs Immat Gran (auto) 0.19 H Absolute Neuts (auto) 4.8 Absolute Nucleated RBC 0.000 Nucleated RBC % (auto) 0.0 Sodium 137 Potassium 4.6 Chloride 107 Carbon Dioxide 25 Anion Gap 10 L BUN 56 H Creatinine 1.50 H Estim Creat Clear Calc 52.7 Estimated GFR 47 Random Glucose 136 H Calcium 8.5 Stl Giardia Antigen SEE NOTE Microbiology Microbiology Results: Microbiology 02/10/21 13:44 Stool Stool Culture - Preliminary Normal so far. 02/10/21 12:43 Blood - Venous Blood Culture - Preliminary No growth after 24 hours. 02/10/21 12:36 Blood - Venous Blood Culture - Preliminary No growth after 24 hours. 02/03/21 09:43 Blood - Venous Blood Culture - Final No growth after 5 days. 02/03/21 09:43 Blood - Venous Blood Culture - Final No growth after 5 days. 02/04/21 12:50 Cerebrospinal Fluid Gram Stain - Final 02/04/21 12:50 Cerebrospinal Fluid CSF Examination - Final 02/04/21 12:50 Cerebrospinal Fluid Fluid Description - Final 02/04/21 12:50 Cerebrospinal Fluid CSF Culture - Final No growth after 3 days. 01/30/21 13:34 Blood - Venous Blood Culture - Final No growth after 5 days. 01/30/21 13:34 Blood - Venous Blood Culture - Final No growth after 5 days. Assessment & Plan Assessment and plan (1) Encephalopathy: Status: Acute (2) Acute kidney injury superimposed on CKD: Status: Acute Assessment and Plan: 60 yo man presents with complaints of diarrhea as well as gi bleed C diff infection. and Metabolic encephalopathy ANA on CKD in setting of renal transplant Improved back to baseline - Now around 1.5 continue iv steroids Continue Prograf. Levels acceptable Continue xarelto continue amiodarone and metoprolol Mentation is improving Time Spent With Patient Time: Total time spent is greater than 50% in coordination of care (as documented) at patient's floor/unit and/or counseling patient: Procedures Date of Service Date of Service: 02/12/21
--- NOTE | 2021-02-12 15:24 | HO.PM.IMPN ---
Subjective Subjective Date of Service: 02/12/21 Interval History: the patient was seen and evaluated this morning Laying in bed, feels overall better but feels stiff all over his muscles very weak and unable to leave the bed or move his extremities with ease Denies any fever, chest pain or shortness of breath No reported other overnight events. Systemic review: No fever, chills but reports generalized weakness No chest pain, palpitation No shortness of breath or coughing No abdominal pain, nausea or vomiting No urinary symptoms Feels anxious and had lot of tremors Physical Exam Vital Signs: Vital Signs: Last Vital Signs Temp 96.8 F 02/12/21 15:12 Pulse 61 02/12/21 15:12 Resp 20 02/12/21 15:12 BP 150/70 H 02/12/21 15:12 Pulse Ox 97 02/12/21 15:12 Body Mass Index 25.8 Const: Other: Constitutional : Alert, oriented, not n distress Neck : Normal inspection, Supple Cardiovascular : RRR, S1 S2, trace bilateral lower extremity edema Respiratory : Fair bilateral air entry, no crackles, wheezes or rhonchi Gastrointestinal: soft, lax, Normal bowel sounds, Non tender Skin : Warm/Dry Musculoskeletal: Significant deconditioning and inability to move his lower extremities much, normal sensation Neurological : Alert & oriented to self and place, No focal neurological deficit Objective Data Current Medications Generic Name Dose Route Start Last Admin Trade Name Freq PRN Reason Stop Dose Admin Divalproex Sodium 500 mg 01/28/21 10:15 02/02/21 11:44 Divalproex Sodium Er 500 Mg Tab.Er.24h PO Not Given DAILY YOLANDA Divalproex Sodium 1,000 mg 01/28/21 21:00 02/02/21 21:47 Divalproex Sodium Er 500 Mg Tab.Er.24h PO Not Given BEDTIME YOLANDA Furosemide 40 mg 02/10/21 09:00 02/12/21 08:20 Furosemide 40 Mg Tablet PO 40 mg DAILY YOLANDA Administration Protocol Medication 1 each 01/30/21 09:00 No Benzodiazepines MISCELLANE DAILY YOLANDA Metoprolol Succinate 50 mg 02/07/21 09:00 02/12/21 08:20 Metoprolol Succinate Er 50 Mg Tab.Er.24h PO 50 mg DAILY YOLANDA Administration Protocol Prednisone 20 mg 02/11/21 09:00 02/12/21 08:20 Prednisone 20 Mg Tablet PO 20 mg DAILY YOLANDA Administration Rivaroxaban 15 mg 02/07/21 09:00 02/12/21 08:20 Rivaroxaban 15 Mg Tablet PO 15 mg DAILY YOLANDA Administration Sodium Chloride 3 ml 01/28/21 08:00 02/12/21 08:22 0.9 % Sodium Chloride Flush 3 Ml Syringe IVFLUSH 3 ml QSHIFT YOLANDA Administration Tacrolimus 2 mg 01/28/21 10:20 02/12/21 08:20 Tacrolimus 1 Mg Capsule PO 2 mg BID YOLANDA Administration Labs CBC & Chem 7: 02/12/21 05:28 02/12/21 05:28 Microbiology Microbiology Results: Microbiology 02/10/21 12:43 Blood - Venous Blood Culture - Preliminary No growth after 48 hours. 02/10/21 12:36 Blood - Venous Blood Culture - Preliminary No growth after 48 hours. 02/10/21 13:44 Stool Stool Culture - Preliminary Normal so far. 02/03/21 09:43 Blood - Venous Blood Culture - Final No growth after 5 days. 02/03/21 09:43 Blood - Venous Blood Culture - Final No growth after 5 days. 02/04/21 12:50 Cerebrospinal Fluid Gram Stain - Final 02/04/21 12:50 Cerebrospinal Fluid CSF Examination - Final 02/04/21 12:50 Cerebrospinal Fluid Fluid Description - Final 02/04/21 12:50 Cerebrospinal Fluid CSF Culture - Final No growth after 3 days. 01/30/21 13:34 Blood - Venous Blood Culture - Final No growth after 5 days. 01/30/21 13:34 Blood - Venous Blood Culture - Final No growth after 5 days. Assessment and Plan (1) C. difficile diarrhea: Status: Acute (2) GI bleed: Status: Acute (3) Acute kidney injury superimposed on CKD: Status: Acute (4) Diarrhea: Status: Acute (5) CHF exacerbation: Status: Acute Assessment and Plan: this is a 60 yo m extensive hx as mentioned above who presents to the hospital with complaints of diarrhea as well as gi bleed Fever One episode on 02/10 fever with tachycardia and chills with no recurrence after that Associated with loose bowel movement Pending blood culture, stool culture, urinalysis and culture Chest x-ray negative for any acute disease Hold antibiotics and continue to monitor Id input appreciated, pending stool for spores and culture Acute on chronic anemia Hemoglobin dropped to 8.7 from baseline of around 10 Having episodes of diarrhea Check occult blood Monitor H&H Physical deconditioning Secondary to prolonged hospital stay. 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 negative for any acute findings Repeated CT chest abdomen pelvis showing nonspecific changes but no clear source of infection identified Repeated blood cultures and urine cultures negative LP with lymphocytes and protein, meningitis/encephalitis panel negative seems to have responded to steroids possibly was some sort of autoimmune encephalitis, CSF was not sent for these studies continue po prednisone 40mg daily, follow up neuro for further recs chronic systolic CHF exacerbation Echo from november showed EF of 15-20% po lasix continue toprol ANA on CKD in setting of renal transplant Improved back to baseline of 1.5 Monitor BMP Nephrology following Right shoulder pain and swelling X-ray from 01/21 showing no fracture or dislocation Orthopedic team evaluated the patient, no intervention needed, put a sling ruled out DVT by US Repeated XR showing suspicious of glenoid fracture, orthopedic suggested outpatient follow-up. Keep arm elevated Persistent Afib underwent cardioversion on 01/14 xarelto continue amiodarone and metoprolol DVT ppx xarelto
--- NOTE | 2021-02-12 16:34 | PM.IDPN ---
Subjective Subjective Date of Service: 02/12/21 Critical Care Time (minutes): 15 Comment: He has some diarrhea today Objective Data Labs CBC & Chem 7: 02/12/21 05:28 02/12/21 05:28 Labs: Laboratory Results - last 24 hr 02/10/21 02/12/21 02/12/21 13:44 05:28 05:28 WBC 6.5 RBC 3.00 L Hgb 8.7 L Hct 27.4 L MCV 91.3 MCH 29.0 MCHC 31.8 RDW 15.1 Plt Count 132 L MPV 11.4 Immature Gran % (Auto) 2.9 H Neut % (Auto) 73.6 H Lymph % (Auto) 15.2 L [place] % (Auto) 7.4 Eos % (Auto) 0.9 Baso % (Auto) 0.0 Lymph # (Auto) 1.0 L [place] # (Auto) 0.5 Eos # (Auto) 0.1 Baso # (Auto) 0.0 Abs Immat Gran (auto) 0.19 H Absolute Neuts (auto) 4.8 Absolute Nucleated RBC 0.000 Nucleated RBC % (auto) 0.0 Sodium 137 Potassium 4.6 Chloride 107 Carbon Dioxide 25 Anion Gap 10 L BUN 56 H Creatinine 1.50 H Estim Creat Clear Calc 52.7 Estimated GFR 47 Random Glucose 136 H Calcium 8.5 Stl Giardia Antigen SEE NOTE Cryptosporidium Exam SEE NOTE Microbiology Microbiology Results: Microbiology 02/10/21 12:43 Blood - Venous Blood Culture - Preliminary No growth after 48 hours. 02/10/21 12:36 Blood - Venous Blood Culture - Preliminary No growth after 48 hours. 02/10/21 13:44 Stool Stool Culture - Preliminary Normal so far. 02/03/21 09:43 Blood - Venous Blood Culture - Final No growth after 5 days. 02/03/21 09:43 Blood - Venous Blood Culture - Final No growth after 5 days. 02/04/21 12:50 Cerebrospinal Fluid Gram Stain - Final 02/04/21 12:50 Cerebrospinal Fluid CSF Examination - Final 02/04/21 12:50 Cerebrospinal Fluid Fluid Description - Final 02/04/21 12:50 Cerebrospinal Fluid CSF Culture - Final No growth after 3 days. 01/30/21 13:34 Blood - Venous Blood Culture - Final No growth after 5 days. 01/30/21 13:34 Blood - Venous Blood Culture - Final No growth after 5 days. Physical Exam Vital Signs: Vital Signs: Last Vital Signs Temp 96.8 F 02/12/21 15:12 Pulse 61 02/12/21 15:12 Resp 20 02/12/21 15:12 BP 150/70 H 02/12/21 15:12 Pulse Ox 97 02/12/21 15:12 Body Mass Index 25.8 Const: General: cooperative HENMT: Head: Yes normal to inspection Mouth: Normal oral and palatal mucosa present Resp: Effort & Inspection: normal respiratory effort Cardio: Rate: regular rate Rhythm: regular rhythm GI: Palpation (GI): Soft to palpation and nontender Skin: General skin exam: no rashes or lesions noted Assessment and Plan Assessment and plan (1) Encephalopathy: Problem details: He has some mild diarrhea and has completed a course of po Vancomycin He is renal transplant patient ?some residual diarrhea medications (takes Tacrolimus and Prednisone) Await final stool studies ,no further antibiotics at this time Status: Acute (2) Diarrhea: Status: Acute Time Spent With Patient Time: Total time spent is greater than 50% in coordination of care (as documented) at patient's floor/unit and/or counseling patient: Time with patient: 15 - 24 minutes
[2021-02-12 20:42] LABS: OBS Int Ctl Valid YES; OBS1 POSITIVE (NEGATIVE)
[2021-02-13 04:00] VITALS: BP 155/72; PULSE 60; RESP 18; TEMP 36.6; O2SAT 99
[2021-02-13 07:03] VITALS: BP 129/63; PULSE 60; RESP 18; TEMP 36; O2SAT 99
[2021-02-13 07:17] LABS: MANUAL DIFF FLAG NO
[2021-02-13 07:27] LABS: Eosinophils Percent Auto 0.2 % (0-4); Hematocrit 28.2 % (42-52); Imm Gran Abs Auto 0.17 X10*3/uL (0.00-0.03); Lymphocytes Absolute Auto 0.9 X10*3/uL (1.2-4.9); Mean Corpuscular HGB Conc 31.9 g/dl (31.0-36.0); Mean Corpuscular Hemoglobin 29.2 pg (27.0-33.0); Mean Corpuscular Volume 91.6 fL (80-98); Mean Platelet Volume 11.5 fL (9.4-12.4); Monocytes Absolute Auto 0.5 X10*3/uL (0.1-1.2); Monocytes Percent Auto 5.6 % (2-11); Neutrophils Absolute Auto 6.9 X10*3/uL (2.0-8.3); Neutrophils Percent Auto 81.2 % (45-73); Platelet Count 159 X10*3/uL (160-400); Red Blood Count 3.08 X10*6/uL (4.60-5.80); Red Cell Distribution Width 15.2 % (11.0-16.0); White Blood Count 8.5 X10*3/uL (4.8-10.8)
[2021-02-13] MEDS: Furosemide 40 MG TABLET PO (08:42)
[2021-02-13] MEDS: Metoprolol Succinate ER 50 MG TAB.ER.24H PO (08:42)
[2021-02-13] MEDS: Rivaroxaban 15 MG TABLET PO (08:42)
[2021-02-13] MEDS: Tacrolimus 1 MG CAPSULE 2 MG PO ×2 (08:43→20:50)
[2021-02-13] MEDS: predniSONE 20 MG TABLET PO (08:45)
[2021-02-13] MEDS: 0.9 % Sodium Chloride Flush 3 ML SYRINGE IVFLUSH ×3 (08:47→20:51)
[2021-02-13 12:00] VITALS: PULSE 60; RESP 20
[2021-02-13 15:18] VITALS: BP 108/60; PULSE 60; RESP 18; TEMP 36.4; O2SAT 97
--- NOTE | 2021-02-13 15:25 | P.PNNP_ITS ---
Subjective Subjective Date of Service: 02/13/21 Principal diagnosis: Cardiomyopathy, atrial fibrillation. Interval history: Events noted. All recent data reviewed. D/W Med Attending Physical Exam Vital Signs: Vital Signs: Last Vital Signs Temp 97.5 F 02/13/21 15:18 Pulse 60 02/13/21 15:18 Resp 18 02/13/21 15:18 BP 108/60 02/13/21 15:18 Pulse Ox 97 02/13/21 15:18 Body Mass Index 25.8 Const: General: no acute distress Eyes: EOM: EOMs intact bilaterally Neck: Neck: Yes supple Resp: Auscultation: diminished lung sounds Cardio: Jugular venous distension: no JVD GI: Palpation (GI): Soft to palpation Neuro: General: moves all extremities Objective Data Labs CBC & Chem 7: 02/13/21 05:54 02/12/21 05:28 Labs: Laboratory Results - last 24 hr 02/12/21 02/13/21 20:25 05:54 WBC 8.5 RBC 3.08 L Hgb 9.0 L Hct 28.2 L MCV 91.6 MCH 29.2 MCHC 31.9 RDW 15.2 Plt Count 159 L MPV 11.5 Immature Gran % (Auto) 2.0 H Neut % (Auto) 81.2 H Lymph % (Auto) 11.0 L [place] % (Auto) 5.6 Eos % (Auto) 0.2 Baso % (Auto) 0.0 Lymph # (Auto) 0.9 L [place] # (Auto) 0.5 Eos # (Auto) 0.0 Baso # (Auto) 0.0 Abs Immat Gran (auto) 0.17 H Absolute Neuts (auto) 6.9 Absolute Nucleated RBC 0.000 Nucleated RBC % (auto) 0.0 Stool Occult Blood POSITIVE Microbiology Microbiology Results: Microbiology 02/10/21 13:44 Stool Stool Culture - Final 02/10/21 12:43 Blood - Venous Blood Culture - Preliminary No growth after 48 hours. 02/10/21 12:36 Blood - Venous Blood Culture - Preliminary No growth after 48 hours. 02/03/21 09:43 Blood - Venous Blood Culture - Final No growth after 5 days. 02/03/21 09:43 Blood - Venous Blood Culture - Final No growth after 5 days. 02/04/21 12:50 Cerebrospinal Fluid Gram Stain - Final 02/04/21 12:50 Cerebrospinal Fluid CSF Examination - Final 02/04/21 12:50 Cerebrospinal Fluid Fluid Description - Final 02/04/21 12:50 Cerebrospinal Fluid CSF Culture - Final No growth after 3 days. 01/30/21 13:34 Blood - Venous Blood Culture - Final No growth after 5 days. 01/30/21 13:34 Blood - Venous Blood Culture - Final No growth after 5 days. Assessment & Plan Assessment and plan (1) Acute kidney injury superimposed on CKD: Status: Acute Assessment and Plan: ANA in renal transplant due to compromise in renal perfusion- resolved Transplant function back to baseline No change in immunosupression now Concur with rest of current management Needs rehab Time Spent With Patient Time: Total time spent is greater than 50% in coordination of care (as documented) at patient's floor/unit and/or counseling patient: Procedures Date of Service Date of Service: 02/13/21
--- NOTE | 2021-02-13 16:17 | P.PNIM_ITS ---
Subjective Subjective Date of Service: 02/13/21 Interval History: the patient was seen and evaluated this morning Laying in bed, feels overall better and able to move his joints with less stiffness this morning Still very weak and unable to leave the bed Denies any fever, chest pain or shortness of breath No reported other overnight events. Systemic review: No fever, chills but reports generalized weakness No chest pain, palpitation No shortness of breath or coughing No abdominal pain, nausea or vomiting No urinary symptoms Feels anxious and had lot of tremors Physical Exam Vital Signs: Vital Signs: Last Vital Signs Temp 97.5 F 02/13/21 15:18 Pulse 60 02/13/21 15:18 Resp 18 02/13/21 15:18 BP 108/60 02/13/21 15:18 Pulse Ox 97 02/13/21 15:18 Body Mass Index 25.8 Const: Other: Constitutional : Alert, oriented, not n distress Neck : Normal inspection, Supple Cardiovascular : RRR, S1 S2, trace bilateral lower extremity edema Respiratory : Fair bilateral air entry, no crackles, wheezes or rhonchi Gastrointestinal: soft, lax, Normal bowel sounds, Non tender Skin : Warm/Dry Musculoskeletal: Significant deconditioning and inability to move his lower extremities much, normal sensation Neurological : Alert & oriented to self and place, No focal neurological deficit Objective Data Current Medications Generic Name Dose Route Start Last Admin Trade Name Freq PRN Reason Stop Dose Admin Divalproex Sodium 500 mg 01/28/21 10:15 02/02/21 11:44 Divalproex Sodium Er 500 Mg Tab.Er.24h PO Not Given DAILY YOLANDA Divalproex Sodium 1,000 mg 01/28/21 21:00 02/02/21 21:47 Divalproex Sodium Er 500 Mg Tab.Er.24h PO Not Given BEDTIME YOLANDA Furosemide 40 mg 02/10/21 09:00 02/13/21 08:42 Furosemide 40 Mg Tablet PO 40 mg DAILY YOLANDA Administration Protocol Medication 1 each 01/30/21 09:00 No Benzodiazepines MISCELLANE DAILY YOLANDA Metoprolol Succinate 50 mg 02/07/21 09:00 02/13/21 08:42 Metoprolol Succinate Er 50 Mg Tab.Er.24h PO 50 mg DAILY YOLANDA Administration Protocol Prednisone 20 mg 02/11/21 09:00 02/13/21 08:45 Prednisone 20 Mg Tablet PO 20 mg DAILY YOLANDA Administration Rivaroxaban 15 mg 02/07/21 09:00 02/13/21 08:42 Rivaroxaban 15 Mg Tablet PO 15 mg DAILY YOLANDA Administration Sodium Chloride 3 ml 01/28/21 08:00 02/13/21 15:44 0.9 % Sodium Chloride Flush 3 Ml Syringe IVFLUSH 3 ml QSHIFT YOLANDA Administration Tacrolimus 2 mg 01/28/21 10:20 02/13/21 08:43 Tacrolimus 1 Mg Capsule PO 2 mg BID YOLANDA Administration Labs CBC & Chem 7: 02/13/21 05:54 02/12/21 05:28 Microbiology Microbiology Results: Microbiology 02/10/21 13:44 Stool Stool Culture - Final 02/10/21 12:43 Blood - Venous Blood Culture - Preliminary No growth after 48 hours. 02/10/21 12:36 Blood - Venous Blood Culture - Preliminary No growth after 48 hours. 02/03/21 09:43 Blood - Venous Blood Culture - Final No growth after 5 days. 02/03/21 09:43 Blood - Venous Blood Culture - Final No growth after 5 days. 02/04/21 12:50 Cerebrospinal Fluid Gram Stain - Final 02/04/21 12:50 Cerebrospinal Fluid CSF Examination - Final 02/04/21 12:50 Cerebrospinal Fluid Fluid Description - Final 02/04/21 12:50 Cerebrospinal Fluid CSF Culture - Final No growth after 3 days. 01/30/21 13:34 Blood - Venous Blood Culture - Final No growth after 5 days. 01/30/21 13:34 Blood - Venous Blood Culture - Final No growth after 5 days. Assessment and Plan (1) C. difficile diarrhea: Status: Acute (2) GI bleed: Status: Acute (3) Acute kidney injury superimposed on CKD: Status: Acute (4) Diarrhea: Status: Acute (5) CHF exacerbation: Status: Acute Assessment and Plan: this is a 60 yo m extensive hx as mentioned above who presents to the hospital with complaints of diarrhea as well as gi bleed Fever One episode on 02/10 fever with tachycardia and chills with no recurrence after that Negative blood culture, stool culture, urine culture Chest x-ray negative for any acute disease Hold antibiotics and continue to monitor Id input appreciated Acute on chronic anemia Hemoglobin stable around 9 No bleeding reported Monitor H&H Physical deconditioning Secondary to prolonged hospital stay. Will need placement per PT C diff infection Finished po vanco 14 days Metabolic encephalopathy Resolved ddx multifactorial: Secondary to infection, medications, hospital induced, hypoactive delerium, hypernatremia Seems to be responsive to the treatment of autoimmune encephalitis with steroids CT head negative for any acute findings Repeated CT chest abdomen pelvis showing nonspecific changes but no clear source of infection identified LP with lymphocytes and protein, meningitis/encephalitis panel negative seems to have responded to steroids possibly was some sort of autoimmune encephalitis, CSF was not sent for these studies continue po prednisone 40mg daily, discussed with neurology, to taper over 6 weeks Difficulty swallowing Improved now on NDD3 and thins, [employer]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 Keep arm elevated Persistent Afib underwent cardioversion on 01/14 xarelto continue amiodarone and metoprolol DVT ppx xarelto
[2021-02-13 19:47] VITALS: BP 154/74; PULSE 60; RESP 18; TEMP 36.8; O2SAT 98
[2021-02-13 23:59] VITALS: BP 142/77; PULSE 60; RESP 18; TEMP 36.9; O2SAT 99
[2021-02-14] VITALS (7 sets, daily range): BP systolic 124–158; BP diastolic 65–91; PULSE 60–64; RESP 18–20; TEMP 36–37.1; O2SAT 96–99
[2021-02-14] MEDS: 0.9 % Sodium Chloride Flush 3 ML SYRINGE IVFLUSH ×3 (07:38→20:25)
[2021-02-14] MEDS: Tacrolimus 1 MG CAPSULE 2 MG PO ×2 (07:38→20:25)
[2021-02-14] MEDS: Metoprolol Succinate ER 50 MG TAB.ER.24H PO (07:39)
[2021-02-14] MEDS: predniSONE 10 MG TABLET 30 MG PO (07:40)
[2021-02-14] MEDS: Furosemide 40 MG TABLET PO (07:41)
[2021-02-14] MEDS: Rivaroxaban 15 MG TABLET PO (07:41)
--- NOTE | 2021-02-14 13:14 | HO.PM.IMPN ---
Subjective Subjective Date of Service: 02/14/21 Interval History: the patient was seen and evaluated this morning Laying in bed, feels overall better able to move his joints with less stiffness but overall deconditioned and bedbound Denies any fever, chest pain or shortness of breath No reported other overnight events. Systemic review: No fever, chills generalized weakness and muscle stiffness No chest pain, palpitation No shortness of breath or coughing No abdominal pain, nausea or vomiting No urinary symptoms Feels anxious and had lot of tremors Physical Exam Vital Signs: Vital Signs: Last Vital Signs Temp 97 F 02/14/21 10:56 Pulse 60 02/14/21 10:56 Resp 20 02/14/21 10:56 BP 155/65 H 02/14/21 10:56 Pulse Ox 96 02/14/21 10:56 Body Mass Index 25.8 Const: Other: Constitutional : Alert, oriented, not n distress Neck : Normal inspection, Supple Cardiovascular : RRR, S1 S2, trace bilateral lower extremity edema Respiratory : Fair bilateral air entry, no crackles, wheezes or rhonchi Gastrointestinal: soft, lax, Normal bowel sounds, Non tender Skin : Warm/Dry Musculoskeletal: Significant deconditioning and inability to move his lower extremities much, normal sensation Neurological : Alert & oriented to self and place, No focal neurological deficit Objective Data Current Medications Generic Name Dose Route Start Last Admin Trade Name Freq PRN Reason Stop Dose Admin Divalproex Sodium 500 mg 01/28/21 10:15 02/02/21 11:44 Divalproex Sodium Er 500 Mg Tab.Er.24h PO Not Given DAILY YOLANDA Divalproex Sodium 1,000 mg 01/28/21 21:00 02/02/21 21:47 Divalproex Sodium Er 500 Mg Tab.Er.24h PO Not Given BEDTIME YOLANDA Furosemide 40 mg 02/10/21 09:00 02/14/21 07:41 Furosemide 40 Mg Tablet PO 40 mg DAILY YOLANDA Administration Protocol Medication 1 each 01/30/21 09:00 No Benzodiazepines MISCELLANE DAILY YOLANDA Metoprolol Succinate 50 mg 02/07/21 09:00 02/14/21 07:39 Metoprolol Succinate Er 50 Mg Tab.Er.24h PO 50 mg DAILY YOLANDA Administration Protocol Prednisone 30 mg 02/14/21 09:00 02/14/21 07:40 Prednisone 10 Mg Tablet PO 30 mg DAILY YOLANDA Administration Rivaroxaban 15 mg 02/07/21 09:00 02/14/21 07:41 Rivaroxaban 15 Mg Tablet PO 15 mg DAILY YOLANDA Administration Sodium Chloride 3 ml 01/28/21 08:00 02/14/21 07:38 0.9 % Sodium Chloride Flush 3 Ml Syringe IVFLUSH 3 ml QSHIFT YOLANDA Administration Tacrolimus 2 mg 01/28/21 10:20 02/14/21 07:38 Tacrolimus 1 Mg Capsule PO 2 mg BID YOLANDA Administration Labs CBC & Chem 7: 02/13/21 05:54 02/12/21 05:28 Microbiology Microbiology Results: Microbiology 02/10/21 13:44 Stool Stool Culture - Final 02/10/21 12:43 Blood - Venous Blood Culture - Preliminary No growth after 48 hours. 02/10/21 12:36 Blood - Venous Blood Culture - Preliminary No growth after 48 hours. 02/03/21 09:43 Blood - Venous Blood Culture - Final No growth after 5 days. 02/03/21 09:43 Blood - Venous Blood Culture - Final No growth after 5 days. 02/04/21 12:50 Cerebrospinal Fluid Gram Stain - Final 02/04/21 12:50 Cerebrospinal Fluid CSF Examination - Final 02/04/21 12:50 Cerebrospinal Fluid Fluid Description - Final 02/04/21 12:50 Cerebrospinal Fluid CSF Culture - Final No growth after 3 days. 01/30/21 13:34 Blood - Venous Blood Culture - Final No growth after 5 days. 01/30/21 13:34 Blood - Venous Blood Culture - Final No growth after 5 days. Assessment and Plan (1) C. difficile diarrhea: Status: Acute (2) GI bleed: Status: Acute (3) Acute kidney injury superimposed on CKD: Status: Acute (4) Diarrhea: Status: Acute (5) CHF exacerbation: Status: Acute Assessment and Plan: this is a 60 yo m extensive hx as mentioned above who presents to the hospital with complaints of diarrhea as well as gi bleed Acute on chronic anemia Hemoglobin stable around 9 No bleeding reported Monitor H&H Physical deconditioning Secondary to prolonged hospital stay. Will need placement per PT C diff infection Finished po vanco 14 days Negative blood culture, stool culture, urine culture ID input appreciated Metabolic encephalopathy Resolving ddx multifactorial: Secondary to infection, medications, hospital induced, hypoactive delerium, hypernatremia Seems to be responsive to the treatment of autoimmune encephalitis with steroids CT head negative for any acute findings Repeated CT chest abdomen pelvis showing nonspecific changes but no clear source of infection identified LP with lymphocytes and protein, meningitis/encephalitis panel negative seems to have responded to steroids possibly was some sort of autoimmune encephalitis, CSF was not sent for these studies continue po prednisone 30mg daily, discussed with neurology, to taper over 6 weeks Difficulty swallowing Improved now on NDD3 and 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 Keep arm elevated Persistent Afib underwent cardioversion on 01/14 xarelto continue amiodarone and metoprolol DVT ppx xarelto Dispo, Pending placement
--- NOTE | 2021-02-14 16:05 | PM.PNNEP ---
Subjective Subjective Date of Service: 02/14/21 Principal diagnosis: Cardiomyopathy, atrial fibrillation. Interval history: Events noted. All recent data reviewed. Feels better Physical Exam Vital Signs: Vital Signs: Last Vital Signs Temp 98.5 F 02/14/21 15:18 Pulse 60 02/14/21 15:18 Resp 18 02/14/21 15:18 BP 124/71 02/14/21 15:18 Pulse Ox 96 02/14/21 15:18 Body Mass Index 25.8 Const: General: no acute distress Eyes: EOM: EOMs intact bilaterally Neck: Neck: Yes supple Resp: Auscultation: diminished lung sounds Cardio: Jugular venous distension: no JVD GI: Palpation (GI): Soft to palpation Neuro: General: moves all extremities Objective Data Labs CBC & Chem 7: 02/13/21 05:54 02/12/21 05:28 Microbiology Microbiology Results: Microbiology 02/10/21 13:44 Stool Stool Culture - Final 02/10/21 12:43 Blood - Venous Blood Culture - Preliminary No growth after 48 hours. 02/10/21 12:36 Blood - Venous Blood Culture - Preliminary No growth after 48 hours. 02/03/21 09:43 Blood - Venous Blood Culture - Final No growth after 5 days. 02/03/21 09:43 Blood - Venous Blood Culture - Final No growth after 5 days. 02/04/21 12:50 Cerebrospinal Fluid Gram Stain - Final 02/04/21 12:50 Cerebrospinal Fluid CSF Examination - Final 02/04/21 12:50 Cerebrospinal Fluid Fluid Description - Final 02/04/21 12:50 Cerebrospinal Fluid CSF Culture - Final No growth after 3 days. 01/30/21 13:34 Blood - Venous Blood Culture - Final No growth after 5 days. 01/30/21 13:34 Blood - Venous Blood Culture - Final No growth after 5 days. Assessment & Plan Assessment and plan (1) Acute kidney injury superimposed on CKD: Status: Acute Assessment and Plan: ANA in renal transplant due to compromise in renal perfusion- resolved Transplant function back to baseline No change in immunosupression now Concur with rest of current management Time Spent With Patient Time: Total time spent is greater than 50% in coordination of care (as documented) at patient's floor/unit and/or counseling patient: Procedures Date of Service Date of Service: 02/14/21
[2021-02-15] VITALS (8 sets, daily range): BP systolic 133–180; BP diastolic 64–94; PULSE 60–63; RESP 18–20; TEMP 36.1–37.1; O2SAT 96–99
[2021-02-15] MEDS: predniSONE 10 MG TABLET 30 MG PO (08:25)
[2021-02-15] MEDS: Tacrolimus 1 MG CAPSULE 2 MG PO ×2 (08:25→20:26)
[2021-02-15] MEDS: Furosemide 40 MG TABLET PO ×2 (08:26→18:01)
[2021-02-15] MEDS: Rivaroxaban 15 MG TABLET PO (08:26)
[2021-02-15] MEDS: Metoprolol Succinate ER 50 MG TAB.ER.24H PO (08:26)
[2021-02-15] MEDS: 0.9 % Sodium Chloride Flush 3 ML SYRINGE IVFLUSH ×3 (08:26→20:27)
[2021-02-15 13:33] LABS: COVID-19 Test Negative (Negative); IDNOW Serial# 9DD0AD1C
--- NOTE | 2021-02-15 13:36 | MHC.CM.PN ---
Male 60 DX GIB CDIFF Pt is discharged today. [facility] is waiting on authorization. Once auth received Pt will transport via BLS. Covid is pending.
--- NOTE | 2021-02-15 16:50 | HO.PM.IMPN ---
Subjective Subjective Date of Service: 02/15/21 Interval History: the patient was seen and evaluated this morning Laying in bed, feels overall better able to move his joints with less stiffness but overall deconditioned and bedbound Denies any fever, chest pain or shortness of breath No reported other overnight events. Systemic review: No fever, chills generalized weakness and muscle stiffness No chest pain, palpitation No shortness of breath or coughing No abdominal pain, nausea or vomiting No urinary symptoms Feels anxious and had lot of tremors Physical Exam Vital Signs: Vital Signs: Last Vital Signs Temp 98.7 F 02/15/21 16:00 Pulse 61 02/15/21 16:00 Resp 18 02/15/21 16:00 BP 141/74 H 02/15/21 16:00 Pulse Ox 97 02/15/21 16:00 Body Mass Index 25.8 Const: Other: Constitutional : Alert, oriented, not n distress Neck : Normal inspection, Supple Cardiovascular : RRR, S1 S2, trace bilateral lower extremity edema Respiratory : Fair bilateral air entry, no crackles, wheezes or rhonchi Gastrointestinal: soft, lax, Normal bowel sounds, Non tender Skin : Warm/Dry Musculoskeletal: Significant deconditioning and inability to move his lower extremities much, normal sensation Neurological : Alert & oriented to self and place, No focal neurological deficit Objective Data Current Medications Generic Name Dose Route Start Last Admin Trade Name Freq PRN Reason Stop Dose Admin Divalproex Sodium 500 mg 01/28/21 10:15 02/02/21 11:44 Divalproex Sodium Er 500 Mg Tab.Er.24h PO Not Given DAILY YOLANDA Divalproex Sodium 1,000 mg 01/28/21 21:00 02/02/21 21:47 Divalproex Sodium Er 500 Mg Tab.Er.24h PO Not Given BEDTIME YOLANDA Furosemide 40 mg 02/15/21 18:00 Furosemide 40 Mg Tablet PO BID@0900,1800 [facility] Protocol Medication 1 each 01/30/21 09:00 No Benzodiazepines MISCELLANE DAILY YOLANDA Metoprolol Succinate 50 mg 02/07/21 09:00 02/15/21 08:26 Metoprolol Succinate Er 50 Mg Tab.Er.24h PO 50 mg DAILY YOLANDA Administration Protocol Prednisone 30 mg 02/14/21 09:00 02/15/21 08:25 Prednisone 10 Mg Tablet PO 30 mg DAILY YOLANDA Administration Rivaroxaban 15 mg 02/07/21 09:00 02/15/21 08:26 Rivaroxaban 15 Mg Tablet PO 15 mg DAILY YOLADNA Administration Sodium Chloride 3 ml 01/28/21 08:00 02/15/21 15:25 0.9 % Sodium Chloride Flush 3 Ml Syringe IVFLUSH 3 ml QSHIFT YOLANDA Administration Tacrolimus 2 mg 01/28/21 10:20 02/15/21 08:25 Tacrolimus 1 Mg Capsule PO 2 mg BID YOLANDA Administration Labs CBC & Chem 7: 02/13/21 05:54 02/12/21 05:28 Microbiology Microbiology Results: Microbiology 02/10/21 12:43 Blood - Venous Blood Culture - Final No growth after 5 days. 02/10/21 12:36 Blood - Venous Blood Culture - Final No growth after 5 days. 02/10/21 13:44 Stool Stool Culture - Final 02/03/21 09:43 Blood - Venous Blood Culture - Final No growth after 5 days. 02/03/21 09:43 Blood - Venous Blood Culture - Final No growth after 5 days. 02/04/21 12:50 Cerebrospinal Fluid Gram Stain - Final 02/04/21 12:50 Cerebrospinal Fluid CSF Examination - Final 02/04/21 12:50 Cerebrospinal Fluid Fluid Description - Final 02/04/21 12:50 Cerebrospinal Fluid CSF Culture - Final No growth after 3 days. 01/30/21 13:34 Blood - Venous Blood Culture - Final No growth after 5 days. 01/30/21 13:34 Blood - Venous Blood Culture - Final No growth after 5 days. Assessment and Plan (1) C. difficile diarrhea: Status: Acute (2) GI bleed: Status: Acute (3) Acute kidney injury superimposed on CKD: Status: Acute (4) Diarrhea: Status: Acute (5) CHF exacerbation: Status: Acute Assessment and Plan: this is a 60 yo m extensive hx as mentioned above who presents to the hospital with complaints of diarrhea as well as gi bleed Acute on chronic anemia Hemoglobin stable around 9 No bleeding reported Monitor H&H Physical deconditioning Secondary to prolonged hospital stay. Will need placement per PT C diff infection Finished po vanco 14 days Negative blood culture, stool culture, urine culture ID input appreciated Metabolic encephalopathy Resolving ddx multifactorial: Secondary to infection, medications, hospital induced, hypoactive delerium, hypernatremia Seems to be responsive to the treatment of autoimmune encephalitis with steroids CT head negative for any acute findings Repeated CT chest abdomen pelvis showing nonspecific changes but no clear source of infection identified LP with lymphocytes and protein, meningitis/encephalitis panel negative seems to have responded to steroids possibly was some sort of autoimmune encephalitis, CSF was not sent for these studies continue po prednisone 30mg daily, discussed with neurology, to taper over 6 weeks Difficulty swallowing Improved now on NDD3 and thins, [employer]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 Keep arm elevated Persistent Afib underwent cardioversion on 01/14 xarelto continue amiodarone and metoprolol DVT ppx xarelto Dispo, Pending placement
--- NOTE | 2021-02-15 20:37 | PM.PNNEP ---
Subjective Subjective Date of Service: 02/15/21 Principal diagnosis: Cardiomyopathy, atrial fibrillation. Interval history: Seen and examined. Events noted Physical Exam Vital Signs: Vital Signs: Last Vital Signs Temp 98.6 F 02/15/21 19:50 Pulse 60 02/15/21 19:50 Resp 18 02/15/21 19:50 BP 165/93 H 02/15/21 19:50 Pulse Ox 99 02/15/21 19:50 Body Mass Index 25.8 Const: General: no acute distress and lethargic Orientation/consciousness: patient oriented x3 and lethargic Eyes: EOM: EOMs intact bilaterally and No Nystagmus present Neck: Neck: Yes supple and Yes no JVD Resp: Auscultation: clear to auscultation bilaterally, no crackles and diminished lung sounds Cardio: Jugular venous distension: no JVD Rate: regular rate Heart sounds: no gallops and no rubs GI: Palpation (GI): Soft to palpation and No Ascites present Skin: General skin exam: no purpura Neuro: Other: Awake and alert General: patient oriented x3 and moves all extremities Cranial nerves: No Nystagmus present Objective Data Labs CBC & Chem 7: 02/13/21 05:54 02/12/21 05:28 Labs: Laboratory Results - last 24 hr 02/15/21 12:59 COVID-19 (KARISSA) Negative COVID-19 Clin Com See Note Microbiology Microbiology Results: Microbiology 02/10/21 12:43 Blood - Venous Blood Culture - Final No growth after 5 days. 02/10/21 12:36 Blood - Venous Blood Culture - Final No growth after 5 days. 02/10/21 13:44 Stool Stool Culture - Final 02/03/21 09:43 Blood - Venous Blood Culture - Final No growth after 5 days. 02/03/21 09:43 Blood - Venous Blood Culture - Final No growth after 5 days. 02/04/21 12:50 Cerebrospinal Fluid Gram Stain - Final 02/04/21 12:50 Cerebrospinal Fluid CSF Examination - Final 02/04/21 12:50 Cerebrospinal Fluid Fluid Description - Final 02/04/21 12:50 Cerebrospinal Fluid CSF Culture - Final No growth after 3 days. 01/30/21 13:34 Blood - Venous Blood Culture - Final No growth after 5 days. 01/30/21 13:34 Blood - Venous Blood Culture - Final No growth after 5 days. Assessment & Plan Assessment and plan (1) Acute kidney injury superimposed on CKD: Status: Acute Assessment and Plan: 1. ANA: resolved with Scr at bsl 1.5 2/CKD 3: c/w Chronic rejection, transplant nephropathy vs other 3. TBFOL: multifact with svere CM playing signifrole 4. AMS: cont pred for ill defined AMS eventthatis improving 5.Deconditioned 6. IS: maintianed on prograft REC: cont diuretic and low Na diet; d/c planning; cont totrack renal func; optimize card func and contw/u eval of non-ischemic CM Time Spent With Patient Time: Total time spent is greater than 50% in coordination of care (as documented) at patient's floor/unit and/or counseling patient: Procedures Date of Service Date of Service: 02/15/21
[2021-02-16 03:45] VITALS: BP 165/84; PULSE 60; RESP 18; TEMP 36.9; O2SAT 97
[2021-02-16 07:33] VITALS: BP 135/68; PULSE 60; RESP 20; TEMP 37.1; O2SAT 97
[2021-02-16 07:57] VITALS: BP 135/68; PULSE 60
[2021-02-16] MEDS: Metoprolol Succinate ER 50 MG TAB.ER.24H PO (07:57)
[2021-02-16] MEDS: Furosemide 40 MG TABLET PO (07:57)
[2021-02-16] MEDS: predniSONE 10 MG TABLET 30 MG PO (07:57)
[2021-02-16] MEDS: 0.9 % Sodium Chloride Flush 3 ML SYRINGE IVFLUSH (07:58)
[2021-02-16] MEDS: Tacrolimus 1 MG CAPSULE 2 MG PO (07:58)
[2021-02-16] MEDS: Rivaroxaban 15 MG TABLET PO (07:58)
[2021-02-16 11:01] VITALS: BP 135/68; PULSE 60
[2021-02-16 11:03] VITALS: BP 173/79; PULSE 60; RESP 20; TEMP 36.9; O2SAT 97
--- NOTE | 2021-02-16 13:39 | PM.DS ---
DS: Providers Provider Date of Service: 02/16/21 Date of admission: 01/28/21 00:33 Primary care physician: Unknown Physician Consults: 01/28/21 02:46 Consult to Gastroenterology Routine Consulting Provider: Scott Munguia Reason for consultation: gi bleed 01/28/21 07:41 Consult to Cardiology Routine Consulting Provider: Arturo Rodriguez Reason for consultation: chf, gi bleed on anticoagulation Has provider been notified: No 01/28/21 07:54 Consult to Nephrology Routine Consulting Provider: Gianfranco Ramon Reason for consultation: ANA on CKD in transplant patient, w C.Diff for med advice. 01/29/21 09:41 Consult to Orthopedics Routine Consulting Provider: Matt Denson Reason for consultation: Right shoulder dislocation for eval and rec. 02/02/21 08:37 Consult to Neurology Routine Consulting Provider: [facility] Reason for consultation: Evaluate for progressive encephalopathy 02/03/21 19:46 Consult to Infectious Diseases Routine Consulting Provider: Esthela Driscoll Reason for consultation: encephaiopathy of unclear etiology, meningitis? for your kind eval DS: Diagnosis Discharge Diagnosis (1) Acute kidney injury superimposed on CKD: Status: Acute (2) Encephalopathy: Status: Acute (3) CHF exacerbation: Status: Acute (4) GI bleed: Status: Acute (5) C. difficile diarrhea: Status: Acute (6) ANA (acute kidney injury): Status: Acute (7) Dehydration: Status: Acute (8) Right arm pain: Status: Acute (9) Acute on chronic systolic heart failure: Status: Inactive DS: Medications Discharge Medications Home Medications: Home Medications Medication Instructions Recorded Confirmed Phospha 250 Neutral 1 tab PO DAILY 01/28/21 01/28/21 Xarelto 15 mg PO QPM 01/28/21 01/28/21 amiodarone 1 tab PO QAM 01/28/21 01/28/21 amiodarone 400 mg PO BID 01/28/21 01/28/21 divalproex 1 tab PO DAILY 01/28/21 01/28/21 divalproex 2 tab PO BEDTIME 01/28/21 01/28/21 furosemide [Lasix] 40 mg PO BID 01/28/21 01/28/21 hydralazine 10 mg PO BID 01/28/21 01/28/21 isosorbide dinitrate 5 mg PO BID 01/28/21 01/28/21 magnesium oxide 400 mg PO BID 01/28/21 01/28/21 metoprolol succinate 1 tab PO BID 01/28/21 01/28/21 omeprazole 20 mg PO DAILY 01/28/21 01/28/21 tacrolimus 2 cap PO BID 01/28/21 01/28/21 Previous Rx's Medication Instructions Recorded aripiprazole [Abilify] 15 mg PO DAILY #30 tab 02/16/21 prednisone See Taper PO DAILY #46 tab 02/16/21 DS: Summary Hospital Course Hospital Course: The patient prolonged hospital stay. For full details please returned to EMR. Admission note HPI This is a 60-year-old male with past medical history of AFib, systolic CHF, asthma, HTN, bipolar disorder, polysubstance abuse, the ED, seizure disorder, kidney transplant, second-degree heart block status post pacemaker, cyst anemia, CKD who presents to the hospital with complaints of diarrhea as well as bloody bowel movements. Patient reports that he had about 8 episodes of diarrhea the day prior to presentation and and 2 episodes of bloody diarrhea today. Patient denies any abdominal pain, no nausea or vomiting, no headache, he has some dizziness with no change in vision, no chest pain, no palpitations. No urinary symptoms. He reports lower extremity edema that restarted about few days ago, no orthopnea or PND. No dyspnea. Of note pt was admitted in early January and tx for Afib, CHF and ANA. Had cardioversion on 01/14 for hx of A fib, On Arrival to the ED No significant abnormal vitals Door significant for WBC 4.0, hemoglobin of 11.9 which is around his baseline, PT of 16.3, INR of 1.4, BUN of 66, creatinine of 3.14 (54 and 2.3 on January 15) BNP of 1302 ( previously 1192 on 01/12), C diff toxins and antigen positive CT abdomen shows no acute bowel abnormality, slightly hyperdense gallbladder reflect sludge or gallstone, US of the abdomen shows normal gallbaldder Hospital course Physical deconditioning Secondary to prolonged hospital stay. Will need placement per PT C diff infection Finished po vanco 14 days Negative blood culture, stool culture, urine culture ID followed the patient during hospital stay Metabolic encephalopathy Developed after admission and continued to get worsen on each day as the patient became totally responsive and barely making noises for physical stimuli. He was transferred to the ICU for altered mentation and difficulties protecting his airways. Lumbar puncture done along with MRI of the brain as neurology evaluated the patient. CSF studies were negative for any infection was etiology. 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 Patient consciousness started to improve and continued to get better during the rest of his hospital stay. Unfortunately CSF was not sent for these studies to confirm the autoimmune encephalitis. To continue po prednisone 30mg daily, to taper over 6 weeks. His Abilify decreased from 30 to 15mg. Can follow with his psychiatrist for further evaluation. 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 chronic systolic CHF exacerbation Echo from november showed EF of 15-20% Treated with po lasix and to continue p.o. Lasix at discharge. continue toprol ANA on CKD in setting of renal transplant Noted to have elevated creatinine of 3 at time of presentation. Believed to be secondary to dehydration from C diff infection. Treated with IV fluid and holding nephrotoxic medications. Improved to 1.5 at time of discharge. Nephrology will continue to follow the patient as outpatient. Right shoulder pain and swelling XR showing suspicious of glenoid fracture, orthopedic suggested outpatient follow-up., no intervention needed, put a sling ruled out DVT by US Keep arm elevated Persistent Afib Has paced rhythm with underlying AFib. Continue Xarelto continue amiodarone and metoprolol Time Spent with Patient Time attestation: Total time spent providing and/or coordinating discharge services: Discharge coordination time: Greater than 30 minutes Quality: Stroke Does the patient have a stroke diagnosis?: No Physical Exam Vital Signs: Vital Signs: Last Vital Signs Temp 98.5 F 02/16/21 11:03 Pulse 60 02/16/21 11:03 Resp 20 02/16/21 11:03 BP 173/79 H 02/16/21 11:03 Pulse Ox 97 02/16/21 11:03 Body Mass Index 25.8 Const: Other: Constitutional : Alert, oriented, not n distress Neck : Normal inspection, Supple Cardiovascular : RRR, S1 S2, trace bilateral lower extremity edema Respiratory : Fair bilateral air entry, no crackles, wheezes or rhonchi Gastrointestinal: soft, lax, Normal bowel sounds, Non tender Skin : Warm/Dry Musculoskeletal: Significant deconditioning and inability to move his lower extremities much, normal sensation Neurological : Alert & oriented to self and place, No focal neurological deficit DS: Data Data Completed and Pending Completed studies during hospitalization [Text1]: Procedures Drainage of Left Upper Arm Skin, External Approach (12/25/20) Restorationism of Cardiac Rhythm, Single (01/12/21) Discharge Plan Discharge Patient Disposition: er SNF Discharge Diagnosis: Encephalopathy Acute kidney injury Heart failure exacerbation Gastrointestinal bleed C diff infection Referrals: [facility] [Outside] - 1 Week [facility] [Outside] - 1 Week Physician,Unknown [Primary Care Provider] - 1 Week Discharge Medications: New prednisone 10 mg tablet See Taper mg PO DAILY Qty: 46 RF: 0 aripiprazole [Abilify] 15 mg tablet 15 mg PO DAILY Qty: 30 RF: 0 Continued furosemide [Lasix] 40 mg Tablet 40 mg PO BID RF: 0 hydralazine 10 mg Tablet 10 mg PO BID RF: 0 amiodarone 400 mg Tablet 400 mg PO BID RF: 0 omeprazole 20 mg Capsule,Delayed Release(Dr/Ec) 20 mg PO DAILY RF: 0 isosorbide dinitrate 5 mg Tablet 5 mg PO BID RF: 0 magnesium oxide 400 mg magnesium Tablet 400 mg PO BID RF: 0 Xarelto 15 mg Tablet 15 mg PO QPM RF: 0 Phospha 250 Neutral 250 mg tablet 1 tab PO DAILY RF: 0 tacrolimus 1 mg capsule 2 cap PO BID RF: 0 metoprolol succinate 50 mg tablet extended release 24 hr 1 tab PO BID RF: 0 divalproex 500 mg tablet extended release 24 hr 1 tab PO DAILY RF: 0 divalproex 500 mg tablet extended release 24 hr 2 tab PO BEDTIME RF: 0 amiodarone 200 mg tablet 1 tab PO QAM RF: 0 Discontinued prednisone 10 mg Tablet 10 mg PO DAILY RF: 0 aripiprazole [Abilify] 30 mg Tablet 30 mg PO DAILY RF: 0 Discharge Orders: Discharge Order (Routine); Ordered 02/16/21 Ordered By: Joshua Moses Diet: advance to usual diet Activity on Discharge: As tolerated Stand Alone Forms: Patient Portal Discharge page Care Plan Goals: Read below Health Concerns: Read below Plan of Treatment: You were admitted to the hospital for evaluation altered mentation. Found to C diff infection treated with antibiotics. Treated for heart failure with IV water pills. You had kidney injury as well. Developed worsening encephalopathy and lethargy and you were transferred to ICU for further evaluation as brain images were done showing no clear etiology. Evaluated by neurologist who recommended treatment with steroids for possible autoimmune reaction. Your responded well to the treatment and regained your consciousness. Assessment: Decrease Abilify to 15 mg daily, to follow with psychiatry for further adjustments Continue prednisone tapering dose for the next 4 weeks. Started physical therapy at facility
== END 2021-02-16 17:40 | disposition skilled nursing facility (03) | DRG 248 ==
LOC: HO.ED 22:05 → HO.EDOVER 01-28 00:53 → HO.IMC 01-28 02:35
PROVIDERS: Hospitalist; Internal Medicine; Internal Medicine Cardiovascular Disease; Internal Medicine Nephrology; Admitting Provider Internal Medicine; Emergency Provider Student in an Organized Health Care Education/Training Program; Visit Provider Student in an Organized Health Care Education/Training Program
DX: A04.72 Enterocolitis due to Clostridium difficile, not specified as recurrent (principal); I50.23 Acute on chronic systolic (congestive) heart failure; G93.41 Metabolic encephalopathy; N18.4 Chronic kidney disease, stage 4 (severe); G04.81 Other encephalitis and encephalomyelitis; T86.19 Other complication of kidney transplant; N17.9 Acute kidney failure, unspecified; I48.11 Longstanding persistent atrial fibrillation; Z94.0 Kidney transplant status; E86.1 Hypovolemia; F05 Delirium due to known physiological condition; I13.0 Hypertensive heart and chronic kidney disease with heart failure and stage 1 through stage 4 chronic kidney disease, or unspecified chronic kidney disease; F17.210 Nicotine dependence, cigarettes, uncomplicated; E86.0 Dehydration; S42.141A Displaced fracture of glenoid cavity of scapula, right shoulder, initial encounter for closed fracture; X58.XXXA Exposure to other specified factors, initial encounter; K92.1 Melena; Y93.9 Activity, unspecified; Y92.9 Unspecified place or not applicable; Y99.9 Unspecified external cause status; Z20.822 Contact with and (suspected) exposure to COVID-19; Z71.6 Tobacco abuse counseling; Z79.01 Long term (current) use of anticoagulants; Z79.899 Other long term (current) drug therapy
CPT/HCPCS: 36415; 36600; 62328; 70450; 70551; 71045; 71250; 73030; 74018; 74176; 76705; 80048; 80053; 80076; 80164; 80197; 80307; 81001; 81003; 82140; 82272; 82945; 82947; 83605; 83690; 83735; 83880; 84157; 84443; 85025; 85027; 85379; 85610; 86403; 86481; 86592; 86850; 86900; 86901; 87015; 87040; 87045; 87046; 87070; 87205; 87272; 87324; 87329; 87449; 87476; 87635; 89051; 92610; 93005; 93971; 95816; 97110; 97162; 97163; 97530; 97535; 99285; J0133; J0290; J0696; J1170; J1650; J1940; J2270; J2560; J2920; J3370